=== PATIENT | male | born 1965 | race Hispanic/Latino ===

== ENCOUNTER 2017-10-18 13:46 | Inpatient (IN) | payer BC, OTHER ==
[2017-10-18] MEDS ORDERED: ACETAMINOPHEN 500 MG TAB PO PRN (14:33)
[2017-10-18 15:00] LABS: Protime INR 1.29
[2017-10-18 15:02] LABS: Absolute Lymphocytes (CBC) 0.4 K/uL (0.7-4.9); Absolute Neutrophil 15.5 K/uL (1.8-8.0); Basophils % 1.3 % (0-1.3); Eosinophils % 0.8 % (0-4.4); Hematocrit 33.6 % (39.6-49.0); Lymphocytes % 2.4 % (15.3-44.8); MCH 27.8 pg (27.0-35.0); MCV 86.7 fL (80-100); MPV 8.5 fL (7.6-11.3); Monocytes % 5.7 % (3.3-12.3); RBC Red Blood Cell Count 3.88 M/uL (4.33-5.43)
[2017-10-18 15:12] LABS: Potassium 3.9 mEq/L (3.6-5.0)
[2017-10-18 15:27] VITALS: BMI 23.3
[2017-10-18] MEDS: INSULIN -REGULAR HUMAN 50 UNIT/0.5 ML ML SQ SCH ×2 (16:30→21:00)
[2017-10-18] MEDS: Levofloxacin500mg IV 500 MG/100 ML BAG IV SCH (16:55)
[2017-10-18 17:32] LABS: Blood Morphology Comment NOT SEEN (NOT SEEN); Platelet Estimate ADEQ; Urine White Blood Cell Casts OK
[2017-10-18] MEDS: HYDROCODONE/APAP 10/325 TAB PO PRN (19:43)
--- NOTE | 2017-10-18 19:43 | P.HP ---
Certification for Inpatient Patient admitted to: Inpatient With expected LOS: >2 Midnights Practitioner: I am a practitioner with admitting privileges, knowledge of patient current condition, hospital course, and medical plan of care. Services: Services provided to patient in accordance with Admission requirements found in Title 42 Section 412.3 of the Code of Federal Regulations Patient History Date of Service: 10/18/17 Reason for admission: dry necrosis of right toe History of Present Illness: Mr Prasad is a 51 years old male with history of IDDM, PVD, CAD, ESRD on HD, who came to the hospital complaining of right toe black discoloration. He states that his toe was ok until 1 week ago, when he start with black escar on the bottom of his toe. The same happend to his left toe, however, on the right side , the black escar extended beyond the 1st metatarsalphalangeal joint. On the left toe remained on the bottom aspect of the toe. He denied fever, bat has had some chills. In ER lab work remarkable for leukocytosis 17.3K, hyponatremia 132 and abnormal renal function as expected. Allergies No Known Drug Allergies Allergy (Verified 03/16/17 16:49) Unknown Clindamycin Allergy (Uncoded 07/10/17 15:50) Unknown No Known Allergies Allergy (Uncoded 06/03/17 23:26) Unknown Home Medications: Nitroglycerin [Nitrostat*] 0.4 mg SL SEECOM PRN 04/16/15 Alprazolam [Xanax*] 0.25 mg PO BEDTIME PRN #20 tab 05/01/15 Clopidogrel Bisulfate [Plavix*] 75 mg PO DAILY #30 tablet 05/01/15 Metoprolol Tartrate [Lopressor*] 25 mg PO BID 6AM 6PM #60 tab 05/12/16 Amox/Clavulanate [Augmentin 875-125 Tab*] 1 tab PO BID 07/19/17 Aspirin [Aspirin EC 81 MG] 81 mg PO DAILY 07/19/17 Atorvastatin Calcium [Lipitor] 80 mg PO BEDTIME 07/19/17 Cetirizine HCl [Zyrtec] 5 mg PO DAILY 07/19/17 Codeine/APAP [Tylenol W/Codeine #3 tab] 1 tab PO Q8HP PRN 07/19/17 Folic Acid/Vit Bcomp,C [Kassie-Lizzeth Tablet] 0.8 mg PO DAILY 07/19/17 Furosemide 20 mg PO BID 07/19/17 Hydroxyzine HCl [Atarax] 25 mg PO Q12HP PRN 07/19/17 Metolazone [Zaroxolyn] 5 mg PO DAILY 07/19/17 Sevelamer Carbonate [Renvela*] 2,400 mg PO TIDWM 07/19/17 - Past Medical/Surgical History Has patient received pneumonia vaccine in the past: Yes Diabetic: Yes -: Diabetes mellitus type 2 -: HTN -: Diabetic neuropathy -: Congestive heart failure -: Coronary artery disease with multiple stents -: End-stage renal disease -: Hyperlipidemia -: Noncompliance with followup and medication -: Anxiety -: Cardiac stents x9 -: open heart surgery as a child -: Ear tubes Psychosocial/ Personal History: Patient is of 16 years, has 1 child, he does not work. - Family History Mother -: Heart disease, Hypertension, Diabetes, Other (see notes) Notes: alzheimer Father -: Heart disease, Cancer Notes: from colon cancer Brother -: Heart disease, Diabetes, Kidney disease - Social History Smoking Status: Never smoker Alcohol use: Yes CD- Drugs: No Caffeine use: Yes Place of Residence: Home Review of Systems 10-point ROS is otherwise unremarkable Physical Examination - Vital Signs Temperature: 99.3 F Blood Pressure: 145/72 Pulse: 97 Respirations: 16 Pulse Ox (%): 99 - Physical Exam General: Alert, In no apparent distress HEENT: Atraumatic, PERRLA, Mucous membr. moist/pink, EOMI, Sclerae nonicteric Neck: Supple, 2+ carotid pulse no bruit, No LAD, Without JVD or thyroid abnormality Respiratory: Clear to auscultation bilaterally, Normal air movement Cardiovascular: Regular rate/rhythm, Normal S1 S2 Gastrointestinal: Normal bowel sounds, No tenderness Musculoskeletal: No tenderness Integumentary: Cyanosis (bilateral LE distal cyanosis), Other (right toe dry necrotic eschar beyond the first metatarsophalangeal joint. Left to black eschar on the bottom area.) Neurological: Normal speech, Normal strength at 5/5 x4 extr, Normal tone, Normal affect Lymphatics: No axilla or inguinal lymphadenopathy - Studies Laboratory Data (last 24 hrs) 10/18/17 14:45: Sodium 132 L, Potassium 3.9, BUN 23 H, Creatinine 3.85 H, Glucose 183 H 10/18/17 14:45: PT 15.3 H, INR 1.29 10/18/17 14:45: WBC 17.3 H, Hgb 10.8 L, Hct 33.6 L, Plt Count 334 Assessment and Plan - Problems (Diagnosis) (1) PVD (peripheral vascular disease) Current Visit: Yes Status: Chronic (2) Necrotic eschar Current Visit: Yes Status: Acute (3) Coronary artery disease Onset Date: 05/10/16 Current Visit: No Status: Chronic Qualifiers: Coronary Disease-Associated Artery/Lesion type: [place] artery [place] vs. transplanted heart: [place] heart Associated angina: without angina Qualified Code(s): I25.10 - Atherosclerotic heart disease of [place] coronary artery without angina pectoris (4) Diabetes mellitus Onset Date: 05/10/16 Current Visit: No Status: Chronic Qualifiers: Diabetes mellitus type: type 2 Diabetes mellitus intermediate insulin use: with manager intermediate use Diabetes mellitus complication status: without complication Qualified Code(s): E11.9 - Type 2 diabetes mellitus without complications; Z79.4 - termite control servicer (current) use of insulin (5) ESRD (end stage renal disease) Onset Date: 06/01/15 Current Visit: No Status: Chronic - Plan The patient will be admitted to the hospital due to necrotic right great toe, also black eschar on the great left toe. He has been evaluated by Dr Mclaughlin and Dr Alvarez. Plan left heart cath and LE runoff tomorrow to evaluate viable blood flow, subsequently will decide extension of amputation. Will continue empiric antibiotic treatment. - Advance Directives Does patient have a Living Will: No Does patient have a Durable POA for Healthcare: No - Code Status/Comfort Care Code Status Assessed: Yes Code Status: Full Code
--- NOTE | 2017-10-18 22:04 | CON ---
History Of Present Illness: Mr. Prasad is in the hospital because of gangrene of his right great toe. It has been getting progressively worse and it started to become painful, so he came to the ER. He has been admitted. Dr. Alvarez saw him and scheduled an angiogram for next Monday, but we are vaughn g to move that up. He has severe vascular disease, numerous cardiac procedures, coronary stents. He has had peripheral arterial disease as well. He has congestive heart failure with depressed ejectio n fraction. Dialysis is on Mondays, Wednesdays, and Fridays. He has hypertension, myocardial infarc tion, peripheral arterial disease. He has been seeing Dr. Mclaughlin and the wound on his right great toe has not been getting better. Physical Examination: Vital Signs: Height 5 feet 4 inches, 136 pounds. HEENT: Unremarkable. Neck: No carotid bruit. Lungs: Clear. Heart: Reveals an S4 gallop. Regular rate and rhythm. Abdomen: Soft. Extremities: Gangrene of the right great toe. There is poor perfusion of the whole foot. It is senior clinical data coordinator l below the bottom third of the right lower leg. The left leg has no pulses, but it is warm and appe ars to have much better color. Impression: The patient's gangrene is very severe. Attempts will be made to see if there is any rev ascularization. Perhaps if revascularization could be done, a ray amputation could be done rather th an a whole foot. So, we will do an angiogram tomorrow. Dr. Mclaughlin will be involved and we will ge t the findings and make decisions about what can be done, but I think the patient's peripheral vascul ar disease is very severe. No doubt from his diabetes and renal disease and will probably result in amputation at least of the right great toe ray, maybe some more tissue will need to come off at the same time. TRACEY/MODL Voice ID: [id number] Report ID: [id number]
--- NOTE | 2017-10-18 22:10 | EKG ---
Test Date: 2017-10-18 Test Time: 16:55:58 Animal Caregiver: DAREK MEASUREMENT RESULTS: Intervals: Rate: 96 VA: 126 QRSD: 110 QT: 362 QTc: 457 [place]: P: VA: 126 QRS: 16 T: 187 INTERPRETIVE STATEMENTS: Normal sinus rhythm LVH with secondary repolarization changes Intraventricular conduction delay Abnormal ECG Compared to ECG 08/30/2017 00:38:46 no significant change from previous ECG Electronically Signed On 10-18-17 22:09:23 CDT by Jayden Matta
--- NOTE | 2017-10-18 22:33 | RAD REPORT ---
EXAM DESCRIPTION: RAD - Foot Right 2 View - 10/18/2017 9:48 pm CLINICAL HISTORY: Soft tissue infection COMPARISON: None. FINDINGS: No fracture identified. No dislocation or periosteal reaction. No destructive bone process identified to localize an area of osteomyelitis. Bone infection can exist prior to radiographic bone destruction. Very dense arterial tree calcifications are present. No foreign body in the soft tissues. There is a minimal amount of air within the soft tissues along the medial margin of the first metatar sherri head. No history is available to indicate whether there is an open wound at this site. IMPRESSION: Punctate air within the soft tissues along the medial margin of the first metatarsal hea d. No bone destructive process identified.
[2017-10-18] MEDS ORDERED: VANCOMYCIN 1 GM in NA CHLORIDE 0.9% 500 ML IVPB ONE (23:00)
[2017-10-18] MEDS ORDERED: VANCOMYCIN/NS 1 gm 1 GM/250 ML BAG ONE (23:06)
--- NOTE | 2017-10-18 23:37 | CON ---
Date of Consultation: 10/18/2017 Reason For Service: Gangrene over the right foot. Indications: This is the case of a 51-year-old patient, known by us in the past at [facility] due to a history of peripheral vascular disease, diabetic ulcers but come this time with a ri ght foot gangrene. He is well-known by the Cardiology Service due to known history of peripheral vas cular disease, coronary artery disease. Not too long ago, he had a left heart catheterization, arter iogram. Right now come with a black toe and half of his foot is already ischemic. Surgical consult was obtained for the options of amputation. He does not remember exactly what happened. It is hard to getting a story from him. He noticed the blackness but he thought it was going to get better, unt il today he was seen and noticed that he has gangrene with infection, ischemic changes all the way up to the ankle area. Past Medical History: Peripheral vascular disease, coronary artery disease, renal failure on hemodia lysis, hypertension, congestive heart failure, poor ejection fraction. Allergies: CLINDAMYCIN. Social History: He does not smoke. He does not drink alcohol. Medication: Reviewed including lisinopril, metoprolol, and aspirin. Family History: Peripheral vascular disease. Review of Systems: Constitutional: Denies any fever. Gastrointestinal: Denies any nausea or vomiting. Musculoskeletal: Right foot pain. No calf pain. Integument: Gangrene and blacked changes and erythema over the right foot region. Physical Examination: GENERAL: The patient is awake and alert. No distress. HEENT: Pupils anicteric. ABDOMEN: Soft and depressible. EXTREMITIES: Right foot with gangrene. It is black and dry the entire toe and half of his first met atarsal and second metatarsal region. The rest is ischemic from first to fifth toe with changes all the way to the ankle. The pulses are not dietary assistant. The femoral pulses still present. Assessment: A 51-year-old with gangrene of the right foot. This patient will need at least a below- knee amputation, is going for an angiogram tomorrow to see the blood supply and give us the options a nd how high it is going to be, but going on the area of the right foot region, we will just put this patient in the failure flaps. This patient has a severe cardiac disease, so it will be fine to do a definitive surgery instead of just trial surgeries. This put us in the situation of a below-knee gurinder l be necessary. We do have to go higher. While the angiogram tomorrow might help us. He is going t o be on antibiotics and then we explained to him the benefits, alternatives, and risks of each option which include but not limited to infection, bleeding, damage to adjacent structures, anesthesia comp lication, nonhealing wound, heart attacks, flap failure, ID, and even . This is just below-knee amputation. He understand the mortality of above-knee amputation maybe a little bit higher with ila e comorbidities. He understands the urgency and the seriousness of this situation. He is thinking a bout it. He has not given any consent at this moment. We will discuss with him once again once the angiogram is completed. WILLIE Voice ID: [id number] Report ID: [id number]
[2017-10-19 04:57] LABS: Absolute Lymphocytes (CBC) 0.6 K/uL (0.7-4.9); Absolute Monocytes 1.2 K/uL (0.1-1.3); Absolute Neutrophil 14.2 K/uL (1.8-8.0); Basophils % 0.7 % (0-1.3); Eosinophils % 1.6 % (0-4.4); Hematocrit 30.3 % (39.6-49.0); Lymphocytes % 3.7 % (15.3-44.8); MCH 27.5 pg (27.0-35.0); MCV 88.4 fL (80-100); MPV 8.7 fL (7.6-11.3); Monocytes % 7.1 % (3.3-12.3); RBC Red Blood Cell Count 3.42 M/uL (4.33-5.43)
[2017-10-19 05:12] LABS: Potassium 4.6 mEq/L (3.6-5.0)
[2017-10-19] MEDS ORDERED: ATROPINE SULF 1 MG/10 ML SYR IV ONE (06:06)
[2017-10-19] MEDS ORDERED: LIDOCAINE 1% 20 ML MDV ONE ×2 (06:06→07:37)
[2017-10-19] MEDS ORDERED: HEPA 1000U/500MLS 1,000 UNIT/500 ML BAG IV ONE (06:06)
[2017-10-19] MEDS ORDERED: NA CHLORIDE 0.9% 500 ML ONE (06:06)
[2017-10-19 06:37] LABS: Urine Appearance CLEAR; Urine Bilirubin NEGATIVE (NEG); Urine Blood NEGATIVE (NEG); Urine Color DK YELLOW; Urine Glucose 1+ (NEG); Urine Protein 3+ (NEG); Urine Specific Gravity 1.015 (1.005-1.030)
[2017-10-19 06:53] LABS: Urine Microscopic Reflex ORDER UMIC
[2017-10-19 07:04] LABS: Urine Amorphous Sediment TRACE /HPF (NONE SEEN); Urine Bacteria <20 /HPF (NONE SEEN); Urine Culture Reflex Order REFLEXED; Urine RBC <5 /HPF (NONE SEEN)
[2017-10-19] MEDS ORDERED: MIDAZOLAM HCL 2 MG/2 ML INJ ONE (07:20)
[2017-10-19] MEDS: INSULIN -REGULAR HUMAN 50 UNIT/0.5 ML ML SQ SCH ×4 (07:30→21:00)
[2017-10-19] MEDS ORDERED: FENTANYL CITR 100 MCG/2 ML ONE (07:30)
[2017-10-19] MEDS ORDERED: VANCOMYCIN 500 MG in NA CHLORIDE 0.9% 100 ML IVPB SCH (07:30)
--- NOTE | 2017-10-19 08:54 | RAD REPORT ---
EXAM DESCRIPTION: Carlos Single View10/19/2017 6:03 am CLINICAL HISTORY: Cough COMPARISON: July 2017 FINDINGS: A 9 millimeter nodular opacity overlies the mid right mid lung. The remainder lungs appear clear. The heart is mildly to moderately enlarged. A central venous catheter has its limbs in the hayward perior vena cava. Upper lobe vessels are prominent indicative of pulmonary venous hypertension IMPRESSION: 9 millimeter nodular opacity overlying the mid right lung may represent a pulmonary nodu le or confluence of ribs and vessels. An unenhanced CT chest is recommended Pulmonary venous hypertension
[2017-10-19 10:22] LABS: Potassium 4.8 mEq/L (3.6-5.0)
[2017-10-19] MEDS ORDERED: NITROGLYCERIN 0.4 MG/TAB SL PRN (13:00)
[2017-10-19] MEDS ORDERED: NA CHLORIDE 0.9% 1,000 ML IV SCH (13:00)
[2017-10-19] MEDS ORDERED: GLUCAGON 1 MG/VIAL IM PRN (14:52)
[2017-10-19] MEDS ORDERED: D50W 25 GM/50 ML SYRINGE IV PRN (14:52)
--- NOTE | 2017-10-19 16:04 | PN ---
Date of Progress Note: 10/19/2017 Subjective: The patient seen and examined. Chart reviewed and case discussed with RN, patient and Dr. Alvarez. The patient went for angiogram today to evaluate his lower extremity circulation. The patient has severe stenosis and will need stenting and anti-platelet therapy once surgery has been completed. The patient otherwise, besides pain will likely go for amputation today. Review of Systems: Negative except as above. Medications: Reviewed. Physical Examination: Vital Signs: Temperature 97.9, heart rate 83, blood pressure of 140/78, respirations 14, O2 99% on 2 L via nasal cannula. General: Awake, alert, oriented x3, in some mild distress due to pain. Appears older than stated age. Ill-appearing male. CV: S1, S2. No murmurs. Peripheral pulses weak bilaterally. Respiratory: Moving air well bilaterally. No wheezing. Gastrointestinal: Abdomen is soft, nontender, nondistended. Positive bowel sounds. Extremities: No clubbing, cyanosis, or edema. Skin: The patient has gangrenous right first toe with spreading to the dorsal aspect of the foot. Left first toe also has gangrene Neurologic: Nonfocal. Laboratory Data: Sodium 132, potassium 4.8, chloride 99, CO2 22, BUN 38, creatinine 5.19, glucose 120, calcium 8.9. WBC 16.3, H and H 9.4, 30.3, platelets 315, neutrophils 86.9%. Chest x-ray shows a 9 mm nodular opacity overlying the mid right lung, may represent a pulmonary nodule or confluence of ribs in vessels, pulmonary venous hypertension. Remainder of the lungs appear clear. Assessment And Plan: A 51-year-old male with. 1. Right foot gangrene. X-ray shows air, will likely need an amputation. 2. Severe peripheral vascular disease, status post angiogram. The patient will need stenting and anti-platelet therapy after he returns from surgery. 3. Coronary artery disease, [place] artery and [place] heart without angina. 4. Diabetes mellitus type 2 with long-term use of insulin without complication. Continue sliding scale insulin. 5. End-stage renal disease, on hemodialysis. Appreciate Nephrology input. 6. Diabetic neuropathy. 7. Congestive heart failure, ejection fraction is 31% from 2016. 8. Generalized anxiety disorder. 9. Hyperlipidemia. We will continue statin. 10. Noncompliance. 11. Gastrointestinal and deep venous thrombosis prophylaxis with PPI. No chemical anticoagulation in anticipation of surgery. 12. Pulmonary nodule: Obtain Ct chest to further characterize abnormality on CXR SA/MODL Voice ID: [id number] Report ID: [id number] MTDD
[2017-10-19] MEDS: FUROSEMIDE 20 MG TABLET PO SCH (17:00)
[2017-10-19] MEDS: ALPRAZOLAM 0.25 MG TABLET PO PRN (20:22)
[2017-10-19] MEDS: RANITIDINE 150 MG TABLET PO SCH (20:22)
[2017-10-19] MEDS: PREGABALIN 50 MG CAP PO SCH (20:22)
[2017-10-19] MEDS: Levofloxacin500mg IV 500 MG/100 ML BAG IV SCH (20:23)
--- NOTE | 2017-10-19 22:05 | OP ---
Surgeon: Parminder Alvarez MD Indications: Admitted on 10/18/2017 for peripheral vascular disease. Procedure: Abdominal angiogram with runoff. Procedure In Detail: Mr. Prasad was brought to the [facility] for an abdominal angiogram with runoff be cause of ischemic right toe and positive arterial Dopplers in my office in the past. He is 51 years old, on dialysis with diabetes, high blood pressure, cholesterol, coronary artery disease with a plan to do an abdominal angiogram with runoff as an outpatient, but he came in with ischemic right toes, draped and prepped in the routine sterile fashion and given 2 mg of Versed for IV sedation. A 6-Fren ch sheath was introduced in the left common femoral artery. A pigtail catheter was used to do the an giography. The patient was noted to have a 90% right common iliac, 90% distal SFA, 80% to 90% distal left SFA, complete occlusion of the anterior tibial, posterior tibial, and the peroneal bilaterally with collateral flow to the distal feet. The patient tolerated the procedure well. Blood loss was 5 cc. Pressure was held at the left groin for hemostasis. Total conscious sedation was 30 minutes. Final Diagnosis: Peripheral vascular disease that is severe. Plan: We will plan to proceed with amputation probably of the right foot or metatarsal or above the fifth metatarsal area first. Probably, we will plan to do a staged stent of the right common iliac a nd the right SFA and the left SFA in the near future. The case was discussed with the family and Dr. Mclaughlin and Dr. Pradhan. FARNAZ/DONNA Voice ID: [id number] Report ID: [id number]
[2017-10-19] MEDS: HYDROCODONE/APAP 10/325 TAB PO PRN (22:28)
[2017-10-19] MEDS ORDERED: VANCOMYCIN 1 GM in NA CHLORIDE 0.9% 500 ML IVPB ONE (22:29)
--- NOTE | 2017-10-20 02:35 | CON ---
Date of Consultation: 10/19/2017 Chief Complaint: End-stage renal disease, on dialysis. History Of Present Illness: The patient has history of end-stage renal disease due to diabetic kidney disease, severe peripheral vascular disease, coronary artery disease, and history of myocardial infarction. The patient presented to the hospital because of dry necrosis of the right toe and right foot. The patient has severe peripheral vascular disease, was found to have severe leukocytosis and hyponatremia. Sodium level was 132. Leukocytosis was up to 17 ,300. The patient stated that he developed some discoloration of right toe 1 week ago. He noticed black eschar and redness. Subsequently, eschar extended beyond the first metatarsal joint. The patient denied fever or chills. Denies nausea or vomiting. Review of Systems: Denies fever or chills. Eyes: Denies vision changes. Ears, Nose, Mouth, and Throat: Denies sore throat or earache. Respiratory: Denies PND or orthopnea. Cardiovascular: Denies chest pain or palpitations. GI: Denies nausea or vomiting. : Denies dysuria or hematuria. Musculoskeletal: Developed eschar gangrene of the right foot. All other systems reviewed and all are negative. Past Medical History: Diabetes mellitus type 2, diabetic kidney disease, diabetic neuropathy, retinopathy, coronary artery disease, multiple stent placement, myocardial infarction, end-stage renal disease on dialysis, hyperlipidemia, noncompliance with medication and followup, anxiety, status post PTCA, open-heart surgery, as a child ear tubes, renal osteodystrophy, anemia, and CKD. Family History: Mother, heart disease, hypertension, diabetes, and Alzheimer. Father had cancer and heart disease. Brother, heart disease, diabetes, and kidney disease. Social History: Denies tobacco, alcohol, or illicit drugs. Physical Examination: General: The patient is awake, alert, follows commands. Vital Signs: Blood pressure 145/72, temperature 99.3, respiratory rate 16, and heart rate 97. Eyes: Anicteric sclerae. EOMI. Ears, Nose, Mouth, and Throat: Oral mucosa moist. No pallor. Neck: Supple. No JVD. No bruits. Lungs: Clear to auscultation bilaterally. No wheezing. No rhonchi. Heart: S1, S2. RRR Abdomen: Soft, benign, nontender. Extremities: Eschar gangrene of the right foot, necrosis, no drainage, no bleeding. Laboratory Data: Sodium 132, potassium 3.9, creatinine 3.85, glucose 183, INR 1.29, PT 15.3, WBC 17.3, hemoglobin 10.8, hematocrit 33.6, and platelet count 334,000. Today, blood work showed sodium 132, potassium 4.8, chloride 99, CO2 22, BUN 38, creatinine 5.19, and calcium 8.9. Impression And Plan: 1. The patient is undergoing cardiac workup today and is to have lower extremity angiogram. The patient will have lab work re-evaluated after IV contrast procedure, and he is to have urgent dialysis for metabolic clearance to control electrolytes and prevent contrast-induced hyperkalemia. The patient has fluid overload and dilutional hyponatremia. Continue p.o. fluid restriction and low-sodium diet. Adjust ultrafiltration goal with dialysis to control fluid overload. 2. Hypertension, continue blood pressure medication. 3. Gangrene and peripheral vascular disease. The patient is to have lower extremity angiogram and possible revascularization. Continue antibiotics. The patient will require amputation. 4. Renal osteodystrophy, continue renal diet and binders. 5. Anemia and chronic kidney disease, continue HALIMA. Monitor hemoglobin level. ELMER/DONNA Voice ID: [id number] Report ID: [id number] HEATHER
[2017-10-20 05:10] LABS: Absolute Lymphocytes (CBC) 0.7 K/uL (0.7-4.9); Absolute Monocytes 1.1 K/uL (0.1-1.3); Absolute Neutrophil 12.3 K/uL (1.8-8.0); Basophils % 0.7 % (0-1.3); Eosinophils % 1.4 % (0-4.4); Hematocrit 29.6 % (39.6-49.0); Lymphocytes % 4.6 % (15.3-44.8); MCH 27.5 pg (27.0-35.0); MCV 88.2 fL (80-100); MPV 8.8 fL (7.6-11.3); Monocytes % 7.4 % (3.3-12.3); RBC Red Blood Cell Count 3.36 M/uL (4.33-5.43)
[2017-10-20 05:45] LABS: Potassium 4.2 mEq/L (3.6-5.0)
[2017-10-20] MEDS ORDERED: PROPOFOL 200 MG/20 ML VIAL IV ONE (07:14)
[2017-10-20] MEDS ORDERED: FENTANYL CITR 100 MCG/2 ML ONE ×2 (07:14→08:25)
[2017-10-20] MEDS ORDERED: MIDAZOLAM HCL 2 MG/2 ML INJ ONE (07:14)
[2017-10-20] MEDS ORDERED: LIDOCAINE 1% MPF 5 ML VIAL ONE (07:14)
[2017-10-20] MEDS ORDERED: NA CHLORIDE 0.9% 1,000 ML ONE (07:27)
[2017-10-20] MEDS: INSULIN -REGULAR HUMAN 50 UNIT/0.5 ML ML SQ SCH ×4 (07:30→20:40)
[2017-10-20] MEDS ORDERED: EPHEDRINE SULF 50 MG/ML SYR ONE (08:23)
[2017-10-20] MEDS ORDERED: ONDANSETRON 4 MG/2 ML VIAL ONE (08:48)
--- NOTE | 2017-10-20 08:54 | P.BOP ---
Preoperative diagnosis: gangrene right foot , severe PVD, ESRD Postoperative diagnosis: same Primary procedure: Right BKA Estimated blood loss: <50cc Specimen: leg Findings: as above Anesthesia: General Complications: None Drain(s): DANIELLE drain Transferred to: Recovery Room Condition: Good
[2017-10-20] MEDS: HYDROCODONE/APAP 10/325 TAB PO PRN ×3 (09:50→21:43)
[2017-10-20] MEDS: FUROSEMIDE 20 MG TABLET PO SCH ×2 (09:50→16:48)
[2017-10-20] MEDS: METOPROLOL TAR 25 MG TAB PO SCH (09:50)
[2017-10-20] MEDS: PREGABALIN 50 MG CAP PO SCH ×2 (09:50→20:39)
[2017-10-20] MEDS: METOLAZONE 5 MG TABLET PO SCH (09:50)
[2017-10-20] MEDS: Morphine 2 MG/2 ML SYR IV PRN ×2 (10:50→16:48)
[2017-10-20] MEDS: Levofloxacin500mg IV 500 MG/100 ML BAG IV SCH (15:32)
--- NOTE | 2017-10-20 16:27 | PN ---
Date of Progress Note: 10/20/2017 Subjective: The patient seen and examined. The patient went for BKA today. Tolerated procedure wel l. Does report some pain. Review of Systems: Negative except as above. Medications: Reviewed. Physical Examination: Vital Signs: Temperature 98.2, heart rate 93, blood pressure 136/74, respirations 18, and O2 94% on room air. General: Awake, alert, oriented x3, in some mild distress, ill-appearing, older than stated age male . CV: S1, S2. No murmurs. Peripheral pulses are weak bilaterally. Respiratory: Clear to auscultation bilaterally. No wheezing. Gastrointestinal: Abdomen is soft, nontender, nondistended. Positive bowel sounds. Extremities: Left lower extremity; no clubbing, cyanosis, edema. Musculoskeletal: Left BKA. Stump site is bandaged. Skin: The patient has gangrene on the left first toe. Neurologic: Nonfocal. Laboratory Data: Sodium 136, potassium 4.2, chloride 101, CO2 27, BUN 26, creatinine 4.34, and gluco se 92. WBC 14.3, H and H 9.2, 29.6, platelets 314, and neutrophils 85%. Urine culture shows no grow th. Blood cultures pending. Assessment: A 51-year-old male with; 1.Right foot gangrenous toe with infection, status post right below knee amputation. 2.Severe peripheral vascular disease, status post angiogram. The patient will need intervention and further therapy after surgery is completed. 3.Coronary artery disease, [place] artery and [place] heart, without angina, stable. 4.Diabetes mellitus type 2 with long-term use of insulin with chronic kidney disease. Continue slid ing scale insulin. 5.End-stage renal disease, on hemodialysis. Appreciate Nephrology input. 6.Diabetic neuropathy. 7.Congestive heart failure, systolic dysfunction, ejection fraction 31% in 2016, compensated. 8.Generalized anxiety disorder. 9.Mixed hyperlipidemia, continue statin. 10.Noncompliance. 11.Gastrointestinal and deep venous thrombosis prophylaxis with PPI. No chemical anticoagulation du e to surgery. Plan: We will consult Infectious Disease. The patient will likely need IV antibiotics. Follow up c ulture results. SA/MODL Voice ID: [id number] Report ID: [id number]
--- NOTE | 2017-10-20 20:26 | PN ---
Date of Progress Note: 10/20/2017 Chief Complaint: Gangrene of the right foot, end-stage renal disease. Subjective: The patient received dialysis yesterday after IV contrast procedure was done. The patient had an angiogram of the lower extremity. Today , he underwent BKA. After surgery, he remains hemodynamically stable. He wants to re-schedule dialysis for tomorrow. Blood work today showed good electrolytes. Controlled potassium was 4.2, sodium 136, chloride 101, CO2 of 27, BUN 26, creatinine 4.34, calcium 8.7, glucose 92. The patient denies chest congestion. Review of Systems: Denies fever, chills. Denies palpitations. Objective: Lungs: Clear to auscultation bilaterally. Heart: S1 and S2. Abdomen: Soft and benign. Extremities: Status post BKA. Dressing in place. Impression And Plan: 1. End-stage renal disease. Dialysis tomorrow. The patient is reluctant to have dialysis done today, dialysis rescheduled for tomorrow. 2. Anemia and chronic kidney disease. Monitor hemoglobin level and adjust medication as needed. 3. Renal osteodystrophy. Continue renal diet and binders. 4. Peripheral vascular disease. Management per primary team. Gangrene of the foot. The patient had an amputation. Continue antibiotics with renally adjusted dose. ELMER/DONNA Voice ID: [id number] Report ID: [id number] MTDD
[2017-10-20] MEDS: RANITIDINE 150 MG TABLET PO SCH (20:40)
[2017-10-20] MEDS: ONDANSETRON 4 MG/2 ML VIAL IV PRN (20:41)
[2017-10-20] MEDS: ALPRAZOLAM 0.25 MG TABLET PO PRN (23:05)
[2017-10-21] MEDS: Morphine 2 MG/2 ML SYR IV PRN ×4 (02:12→23:38)
--- NOTE | 2017-10-21 02:31 | OP ---
Date of Procedure: 10/20/2017 Surgeon: Inocencio Mclaughlin MD Preoperative Diagnoses: Right foot gangrene; severe peripheral vascular disease; severe cardiac dise ase; renal failure, on hemodialysis. Postoperative Diagnoses: Right foot gangrene; severe peripheral vascular disease; severe cardiac dis ease; renal failure, on hemodialysis. Procedure: Right below-knee amputation. Anesthesia: General plus local. Findings: Right foot gangrene. Indications: This is the case of a 51-year-old patient with severe peripheral vascular disease; rainer re cardiac disease; renal failure, on hemodialysis; comes to us also with a gangrene of the right jessica t. An angiogram was done yesterday, it shows a very poor vascularization. The patient finally agree d to at least the above-knee amputation. It was discussed with him. He understands the benefits, al ternatives, and risks of below-knee amputation which include but not limited to infection, bleeding, damage to adjacent structures, anesthesia complication, nonhealing of the flaps especially with his v ascular disease, [place], and even . He also understands this may not relieve any symptoms. He migh t need more than one surgical intervention. A vascular computer education professor will do a stent p lacement in this patient to see if we can make that stump heal, otherwise he is going to have to go f or above-knee amputation. We do not have concern for that at this moment and the patient has a bad g angrene of his foot, so we will go with the patient at least below-knee amputation that will buy us s ome time. The patient was brought to the operating room, placed in supine position. A time-out was called. Right leg was prepped and draped in a sterile fashion. Anterior and posterior skin incision s were aligned with a marking pen. Anterior incision was made 12 cm below the tibial tuberosity and extended medially and lateral to the edges of the knee and the gastrocnemius muscle. The skin incisi on was then extended in each side distally over about 12 cm. The skin and subcutaneous tissues were incised down to the fascia. Saphenous veins were identified and ligated. The fascia of the muscle w as then divided with electrocautery at the level of the anterior skin incision. The muscles of the a nterior and lateral compartments were carefully divided exposing the anterior tibial vessels, which w ere suture ligated, although there was not much blood coming through it, just many collaterals on him . The interosseous membrane was then carefully incised. Tibial periosteum was incised, and using a PDS elevator, we proceeded to strip the periosteum proximally for about 2 cm. The tibia was then tra nsected using a Gigli saw with a 2 cm bevel anteriorly. The fibula was exposed, dissected circumfere ntially, and transected with a bone cutter about 2 cm proximal to the tibia. The amputation was then completed transecting the soleus muscle obliquely and the gastrocnemius muscle. Hemostasis was obta ined. The sharp bony edges were carefully filed. The fascias of the anterior and posterior flaps we re approximated with a #1 Vicryl. Before that, a DANIELLE drain was left in the area, connected to bulb hayward ction, secured in place with 3-0 nylon. The skin was then closed with elissa. Sponge counts, instr ument counts were correct. The patient tolerated the procedure well. The patient was sent to recove ry in stable condition. YARIEL/DONNA Voice ID: [id number] Report ID: [id number]
[2017-10-21 05:23] LABS: Absolute Lymphocytes (CBC) 0.6 K/uL (0.7-4.9); Absolute Monocytes 0.9 K/uL (0.1-1.3); Absolute Neutrophil 11.6 K/uL (1.8-8.0); Basophils % 0.7 % (0-1.3); Eosinophils % 1.9 % (0-4.4); Hematocrit 28.2 % (39.6-49.0); Lymphocytes % 4.5 % (15.3-44.8); MCH 27.1 pg (27.0-35.0); MCV 88.4 fL (80-100); MPV 8.7 fL (7.6-11.3); Monocytes % 6.6 % (3.3-12.3); RBC Red Blood Cell Count 3.19 M/uL (4.33-5.43)
[2017-10-21] MEDS: HYDROCODONE/APAP 10/325 TAB PO PRN ×3 (06:32→21:43)
[2017-10-21] MEDS: INSULIN -REGULAR HUMAN 50 UNIT/0.5 ML ML SQ SCH ×4 (07:30→21:00)
[2017-10-21] MEDS: PREGABALIN 50 MG CAP PO SCH ×2 (09:44→21:43)
[2017-10-21] MEDS: LISINOPRIL 10 MG TAB PO SCH (09:45)
[2017-10-21] MEDS: METOPROLOL TAR 25 MG TAB PO SCH (09:45)
[2017-10-21] MEDS: FUROSEMIDE 20 MG TABLET PO SCH ×2 (09:45→17:50)
[2017-10-21] MEDS: METOLAZONE 5 MG TABLET PO SCH (09:45)
[2017-10-21] MEDS: ONDANSETRON 4 MG/2 ML VIAL IV PRN (13:04)
--- NOTE | 2017-10-21 13:37 | PN ---
He had a right [id number]-[id number]-spxr amputation. The wound seems to be healing well according to the notes of people changing the dressing. I will keep my on him. His left great toe is gangrenous, so he may need a resection of that. It appears to be dry gangrene without any systemic complications, very li susi the therapy. We will be waiting for that tissue to demarcate and have an auto-amputation. The vessels of his left leg are no better than the right leg, so we will try to avoid any interventions i n the left leg. TRACEY/DONNA Voice ID: [id number] Report ID: [id number]
[2017-10-21] MEDS ORDERED: NA CHLORIDE 0.9% 1,000 ML IV PRN (14:39)
[2017-10-21] MEDS ORDERED: MANNITOL 25% 12.5 GM/50 ML VIAL IV PRN (14:39)
[2017-10-21] MEDS ORDERED: ALBUMIN HUMAN 25% 50 ML IV SCH (15:00)
[2017-10-21] MEDS: EPOETIN ALFA 10,000 UNIT/ML VIAL IV SCH (15:04)
--- NOTE | 2017-10-21 15:37 | CON ---
Date of Consultation: 10/21/2017 Subjective: The patient seen and examined, chart reviewed and case discussed with RN. The patient s tates his pain is quite significant. The patient states he is eager to move on from surgery and star t working with physical therapy. Review of Systems: Negative except as above. Medications: Reviewed. Physical Examination: Vital Signs: Temperature 98.7, heart rate 80, blood pressure 133/76, respirations 16, O2 92% on room air. General: Awake, alert, oriented x3, in some mild distress, appears older than stated age, ill-appear ing male. CV: S1, S2. No murmurs. Regular rate and rhythm. Peripheral pulses are weak. Respiratory: Moving air well bilaterally. No wheezing. No stridor. Gastrointestinal: Abdomen soft, nontender, nondistended. Positive bowel sounds. Extremities: No clubbing, cyanosis, or edema on the left lower extremity. Musculoskeletal: Right BKA with incisions site bandaged. No oozing. Mild tenderness to palpation a t the incision site. Neurologic: Nonfocal. Laboratory Data: Sodium 136, potassium 5, chloride 199, CO2 25, BUN 43, creatinine 6.47, glucose 111 , calcium 8.6. WBC 13.4, H and H 8.5 and 28.2, platelets 314, neutrophils 86%. Urine culture shows no growth. Assessment And Plan: This is a 51-year-old male with: 1.Right foot gangrenous toe and infection status post right below knee amputation. 2.Severe peripheral vascular disease. The patient will likely get stent placement next week. Appre paco Alvarez's input. 3.Coronary artery disease. [place] artery and [place] heart without angina, stable. 4.Diabetes mellitus type 2 with long-term use of insulin with chronic kidney disease. Continue slid ing scale insulin. 5.End-stage renal disease, on hemodialysis. Continue dialysis as scheduled. Appreciate Nephrology input. 6.Diabetic neuropathy. 7.Congestive heart failure, systolic dysfunction, EF 31% in 2016. Currently compensated. 8.Generalized anxiety disorder, stable. 9.Hyperlipidemia. Continue statin. 10.Gastrointestinal and deep venous thrombosis prophylaxis with PPI. We will start on Lovenox 24 ho urs after surgery. Plan: Consult ID. Blood cultures, wound cultures, PT/OT. Discharge planning. SA/MODL Voice ID: [id number] Report ID: [id number]
[2017-10-21] MEDS: ENOXAPARIN 30 MG/0.3 ML SQ SCH (17:50)
[2017-10-21] MEDS: Levofloxacin500mg IV 500 MG/100 ML BAG IV SCH (17:51)
[2017-10-21] MEDS: VANCOMYCIN 500 MG in NA CHLORIDE 0.9% 100 ML IVPB SCH (19:21)
[2017-10-21] MEDS: RANITIDINE 150 MG TABLET PO SCH (21:43)
--- NOTE | 2017-10-22 02:38 | PN ---
Date of Progress Note: 10/21/2017 Chief Complaint: End-stage renal disease on dialysis. History Of Present Illness: The patient is scheduled to have dialysis today. The patient has multiple medical problems including history of severe coronary artery disease, peripheral vascular disease, he underwent BKA for foot gangrene. He came to the hospital, was found to have gangrene of the foot. Review of Systems: Denies fever, chills. Physical Examination: Lungs: Clear to auscultation bilaterally. Heart: S1, S2. Abdomen: Soft, benign. Extremities: Dressing in place. Impression And Plan: 1. End-stage renal disease. Dialysis today is scheduled with ultrafiltration. 2. Hypertension. Blood pressure controlled. Continue current treatment. 3. Renal osteodystrophy. Continue renal diet and binders. 4. Peripheral vascular disease. Management by primary team and Cardiology. 5. Gangrene of the foot. Continue antibiotics. The patient had amputation done. ELMER/DONNA Voice ID: [id number] Report ID: [id number] MTDD
[2017-10-22] MEDS: INSULIN -REGULAR HUMAN 50 UNIT/0.5 ML ML SQ SCH ×4 (07:30→21:00)
[2017-10-22] MEDS: METOLAZONE 5 MG TABLET PO SCH (09:42)
[2017-10-22] MEDS: PREGABALIN 50 MG CAP PO SCH ×2 (09:42→22:16)
[2017-10-22] MEDS: METOPROLOL TAR 25 MG TAB PO SCH (09:42)
[2017-10-22] MEDS: HYDROCODONE/APAP 10/325 TAB PO PRN ×2 (09:43→15:25)
[2017-10-22] MEDS: LISINOPRIL 10 MG TAB PO SCH (09:43)
[2017-10-22] MEDS: FUROSEMIDE 20 MG TABLET PO SCH ×2 (09:43→18:51)
[2017-10-22] MEDS: ONDANSETRON 4 MG/2 ML VIAL IV PRN (09:48)
--- NOTE | 2017-10-22 14:07 | PN ---
Date of Progress Note: 10/20/2017 Subjective: The patient seen and examined. Chart reviewed and case discussed with RN. The patient appears depressed; however, does not want any SSRI at this time. Treatment plan explained. All ques tions answered. Review of Systems: Negative except as above. Medications: Reviewed. Physical Examination: Vital Signs: Temperature 98.4, heart rate 79, blood pressure 128/59, respirations 20, O2 of 98% on r oom air. General: Awake, alert, oriented x3, not in any acute distress; ill-appearing, older than stated age. Cachectic male. BMI 20. CV: S1, S2. Regular rate and rhythm. Pulse is weak. No murmurs. Respiratory: Clear to auscultation bilaterally. No wheezing. Gastrointestinal: Abdomen is soft, nontender, nondistended. Positive bowel sounds. Extremities: Left lower extremity; no clubbing, cyanosis, or edema. Musculoskeletal: Right BKA, bandaged. Skin: The patient has dry gangrene of the left first toe. Neurologic: Nonfocal. Laboratory Data: Pending. Glucose is 112. Blood cultures are pending. Assessment: A 51-year-old male with: 1.Right foot gangrenous toe and infection status post right below-knee amputation secondary to sever e peripheral vascular disease. 2.Severe peripheral vascular disease. Apparently, the patient being planned for stent placement and subsequent anti-platelet therapy next week. Cardiology on board. 3.Coronary artery disease; [place] artery and [place] heart without angina, stable. 4.Diabetes mellitus type 2 with long-term use of insulin with chronic kidney disease. We will kerri nue sliding scale insulin. 5.End-stage renal disease, on hemodialysis. We will continue dialysis as scheduled. Nephrology on board. 6.Diabetic neuropathy. 7.Congestive heart failure, systolic dysfunction, ejection fraction 31% in 2016, compensated. 8.Generalized anxiety disorder, stable. 9.Adjustment disorder with depressed mood. 10.Hyperlipidemia. 11.Continue statin. 12.Gastrointestinal and deep venous thrombosis prophylaxis; PPI and Lovenox. Plan: ID consultation. Follow up on cultures. SA/MODL Voice ID: [id number] Report ID: [id number]
[2017-10-22] MEDS: Levofloxacin500mg IV 500 MG/100 ML BAG IV SCH (15:25)
[2017-10-22] MEDS: ENOXAPARIN 30 MG/0.3 ML SQ SCH (18:51)
[2017-10-22] MEDS: CYCLOBENZAPRINE 10 MG TAB PO PRN (18:57)
[2017-10-22 21:17] LABS: Absolute Lymphocytes (CBC) 0.5 K/uL (0.7-4.9); Absolute Monocytes 1.1 K/uL (0.1-1.3); Absolute Neutrophil 13.6 K/uL (1.8-8.0); Basophils % 0.3 % (0-1.3); Hematocrit 29.1 % (39.6-49.0); Lymphocytes % 3.4 % (15.3-44.8); MCH 28.5 pg (27.0-35.0); MCV 87.5 fL (80-100); MPV 8.4 fL (7.6-11.3); Monocytes % 7.1 % (3.3-12.3); RBC Red Blood Cell Count 3.33 M/uL (4.33-5.43)
--- NOTE | 2017-10-22 22:04 | PN ---
Date of Progress Note: 10/22/2017 Chief Complaint: End-stage renal disease. The patient is scheduled for dialysis tomorrow. Subjective: The patient was found to have anemia. He is to have blood transfusion with 2 units of p acked red blood cells with dialysis. Leukocytosis. The patient is undergoing treatment with IV antibiotics. For diabetic foot infection, he underwent BKA for gangrene of left foot. Review of Systems: Denies fever, chills. Objective: Lungs: Clear to auscultation bilaterally. Heart: S1, S2. Abdomen: Soft, benign. Extremities: Dressing in place. Impression And Plan: 1.End-stage renal disease. Dialysis with ultrafiltration will be ordered for tomorrow. 2.Renal osteodystrophy. Continue renal diet and binders. 3.Hypertension. Continue blood pressure medication. 4.Anemia in chronic kidney disease. Continue HALIMA. Recommend blood transfusion as needed. 5.Diabetes mellitus. Continue insulin. ELMER/DONNA Voice ID: [id number] Report ID: [id number]
[2017-10-22] MEDS: RANITIDINE 150 MG TABLET PO SCH (22:16)
[2017-10-23 05:53] LABS: Absolute Lymphocytes (CBC) 0.7 K/uL (0.7-4.9); Basophils % 0.8 % (0-1.3); Eosinophils % 1.7 % (0-4.4); Hematocrit 27.1 % (39.6-49.0); Lymphocytes % 4.7 % (15.3-44.8); MCH 27.8 pg (27.0-35.0); MCV 88.5 fL (80-100); MPV 8.4 fL (7.6-11.3); Monocytes % 6.9 % (3.3-12.3); RBC Red Blood Cell Count 3.07 M/uL (4.33-5.43)
[2017-10-23 06:11] LABS: Albumin 1.9 g/dL (3.2-5.5); Bilirubin Total 0.8 mg/dL (0.3-1.2); Potassium 4.7 mEq/L (3.6-5.0); Protein, Total 6.4 g/dL (6.0-8.3)
[2017-10-23 06:58] LABS: Blood Morphology Comment NOT SEEN (NOT SEEN); Platelet Estimate ADEQ
[2017-10-23] MEDS: INSULIN -REGULAR HUMAN 50 UNIT/0.5 ML ML SQ SCH ×4 (07:30→21:19)
[2017-10-23] MEDS: FUROSEMIDE 20 MG TABLET PO SCH ×2 (09:00→17:45)
[2017-10-23] MEDS: METOLAZONE 5 MG TABLET PO SCH (09:00)
[2017-10-23] MEDS: METOPROLOL TAR 25 MG TAB PO SCH (09:00)
--- NOTE | 2017-10-23 10:27 | P.PN ---
Subjective Date of Service: 10/23/17 Chief Complaint: dry necrosis of right toe The patient is tethargic, but otherwise has not new complaint. No fever. Physical Examination - Vital Signs Temperature: 99.4 F Blood Pressure: 116/60 Pulse: 75 Respirations: 16 Pulse Ox (%): 96 - Physical Exam General: Alert, In no apparent distress HEENT: Atraumatic, PERRLA, EOMI Neck: Supple, JVD not distended Respiratory: Clear to auscultation bilaterally, Normal air movement Cardiovascular: Normal S1 S2, No gallops Gastrointestinal: Normal bowel sounds, No tenderness Musculoskeletal: Other (S/P Right BKA. ) Integumentary: Other (left first toe gangrenous) Neurological: Normal speech, Normal tone, Normal affect - Studies Laboratory Data (last 24 hrs) 10/23/17 05:20: Sodium 135, Potassium 4.7, BUN 41 H, Creatinine 6.82 H*, Glucose 96, Total Bilirubin 0.8, AST 34, ALT 18, Alkaline Phosphatase 121 10/23/17 05:20: WBC 15.2 H, Hgb 8.5 L, Hct 27.1 L, Plt Count 330 10/22/17 20:57: WBC 15.5 H D, Hgb 9.5 L, Hct 29.1 L, Plt Count 305 Microbiology Data (last 24 hrs): 10/21/17 12:19 Blood - Blood Anaerobic Blood Culture - Final 10/21/17 12:11 Blood - Blood Anaerobic Blood Culture - Final Assessment And Plan - Current Problems (Diagnosis) (1) PVD (peripheral vascular disease) Onset Date: 10/19/17 Current Visit: Yes Status: Chronic (2) Necrotic eschar Onset Date: 10/19/17 Current Visit: Yes Status: Acute (3) Coronary artery disease Onset Date: 05/10/16 Current Visit: No Status: Chronic Qualifiers: Coronary Disease-Associated Artery/Lesion type: [place] artery [place] vs. transplanted heart: [place] heart Associated angina: without angina Qualified Code(s): I25.10 - Atherosclerotic heart disease of [place] coronary artery without angina pectoris (4) Diabetes mellitus Onset Date: 05/10/16 Current Visit: No Status: Chronic Qualifiers: Diabetes mellitus type: type 2 Diabetes mellitus nutrition assistant insulin use: with penitentiary use Diabetes mellitus complication status: without complication Qualified Code(s): E11.9 - Type 2 diabetes mellitus without complications; Z79.4 - nursing home (current) use of insulin (5) ESRD (end stage renal disease) Onset Date: 06/01/15 Current Visit: No Status: Chronic - Plan #1 right foot gangrenous lession: S/P right BKA, F/U dr Mclaughlin. #2 left great toe gangrenous disease: planing to continue wathching and let to have self amputation. Continue treatment with IV Levaquin and Vancomycin. #3 PVD: S/P runoff, there is a plan to place a stent placement this week. Cardiology and Surgery team follow up. #4 ESRD: continue HD, F/U Dr Lowery. #5 anemia: Recommendation by surgery team is to have Hgb close to 10 mg/dl, today is 8.5, will transfuse 1 UNIT of PRBC.
[2017-10-23] MEDS ORDERED: NA CHLORIDE 0.9% 250 ML ONE (11:16)
[2017-10-23] MEDS: HYDROCODONE/APAP 10/325 TAB PO PRN ×2 (12:59→21:43)
[2017-10-23] MEDS: PREGABALIN 50 MG CAP PO SCH ×2 (13:00→20:23)
[2017-10-23] MEDS: EPOETIN ALFA 10,000 UNIT/ML VIAL IV SCH (13:06)
[2017-10-23] MEDS: ENOXAPARIN 30 MG/0.3 ML SQ SCH (17:46)
[2017-10-23] MEDS: CYCLOBENZAPRINE 10 MG TAB PO PRN (18:17)
[2017-10-23] MEDS: Morphine 2 MG/2 ML SYR IV PRN (20:20)
[2017-10-23] MEDS: RANITIDINE 150 MG TABLET PO SCH (20:23)
--- NOTE | 2017-10-24 01:46 | PN ---
Date of Progress Note: 10/23/2017 Chief Complaint: End-stage renal disease. Subjective: The patient is scheduled to have dialysis today and blood transfusion was ordered during dialysis. The patient denies PND, orthopnea. Objective: Lungs: Clear to auscultation bilaterally. Heart: S1, S2. Abdomen: Soft, benign. Extremities: Dressing in place. Impression And Plan: 1.End-stage renal disease. Dialysis is scheduled with ultrafiltration. Monitor electrolytes. Adju st parameters accordingly. 2.Hypertension. Blood pressure controlled. 3.Diabetes mellitus. Continue insulin as needed per sliding scale. 4.Renal osteodystrophy. Continue renal diet and binders. 5.Gangrene of the foot, status post amputation. Continue antibiotics. 6.Anemia in chronic kidney disease. The patient will continue HALIMA and the patient will have blood t ransfusion with dialysis. ELMER/MARYANNL Voice ID: [id number] Report ID: [id number]
[2017-10-24 05:42] LABS: Absolute Lymphocytes (CBC) 0.8 K/uL (0.7-4.9); Absolute Monocytes 1.2 K/uL (0.1-1.3); Absolute Neutrophil 11.2 K/uL (1.8-8.0); Basophils % 0.8 % (0-1.3); Eosinophils % 1.5 % (0-4.4); Hematocrit 32.4 % (39.6-49.0); Lymphocytes % 6.1 % (15.3-44.8); MCV 87.7 fL (80-100); MPV 8.7 fL (7.6-11.3); Monocytes % 8.7 % (3.3-12.3)
[2017-10-24 06:38] LABS: Albumin 2.2 g/dL (3.2-5.5); Bilirubin Total 0.6 mg/dL (0.3-1.2); Potassium 4.4 mEq/L (3.6-5.0); Protein, Total 6.4 g/dL (6.0-8.3)
[2017-10-24] MEDS: INSULIN -REGULAR HUMAN 50 UNIT/0.5 ML ML SQ SCH ×4 (07:30→21:00)
[2017-10-24] MEDS: PREGABALIN 50 MG CAP PO SCH ×2 (09:38→21:28)
[2017-10-24] MEDS: FUROSEMIDE 20 MG TABLET PO SCH ×2 (09:38→17:34)
[2017-10-24] MEDS: LISINOPRIL 10 MG TAB PO SCH (09:38)
[2017-10-24] MEDS: METOLAZONE 5 MG TABLET PO SCH (09:38)
[2017-10-24] MEDS: METOPROLOL TAR 25 MG TAB PO SCH (09:40)
[2017-10-24] MEDS: HYDROCODONE/APAP 10/325 TAB PO PRN (09:40)
--- NOTE | 2017-10-24 11:22 | CON ---
Subjective: The patient is a 51-year-old male with significant history of diabetes mellitus, coming in with gangrene of the right foot, which has been amputated by the surgical team. The patient has a DANIELLE drain at this time to the wound site and multiple elissa to close the wound site without any exc essive bleeding or discharge. The patient is having discomfort because of physical therapy. Past Medical History: Includes diabetes mellitus, hypertension, diabetic neuropathy, congestive hear t failure, coronary artery disease, end-stage renal disease, hyperlipidemia, noncompliance, anxiety, cardiac stent x9, open-heart surgery, ear tubes. Social History: Tobacco positive. Alcohol negative. Family History: Negative except heart disease and hypertension and diabetes, colon cancer. Review of Systems: A 10-point review was performed. Medications: Levaquin and vancomycin. Allergies: NO KNOWN DRUG ALLERGIES. Physical Examination: General: This is a 51-year-old male, sitting in easy chair, not in any acute cardiopulmonary distres s. Vital Signs: Temperature 98.9, pulse 90, respirations 17, blood pressure 125/52. HEENT: Unremarkable. Neck: Supple. Lungs: Basal crackles. Heart: S1, S2. Regular. Abdomen: Soft, nontender. Bowel sounds positive. Extremities: Right lower extremity BKA wound site noted. DANIELLE drain in place with serosanguineous betito inage. Laboratory Data: Shows WBC 13,500, hemoglobin 10.4, platelets 315. Chemistry shows sodium 137, pota ssium 4.4, chloride 96, bicarb 29, BUN 31, creatinine 5.8, glucose is 85. Micro data shows blood cul tures pending, no growth for 24 hours. Chest x-ray shows 9 mm nodular opacity overlying the mid righ t lung, may represent a pulmonary nodule, a CT was recommended, pulmonary venous congestion. Assessment And Plan: A 51-year-old male with significant history of diabetes, coming in with right f oot gangrene status post amputation and BKA. The patient is doing better. Continue to have discomfo rt and pain. We will recommend to transfer the patient to long-term acute care [facility] for further care. We will follow the patient closely. Thank you Dr. Velasco and Dr. Mclaughlin for consult. SRINIVASA/DONNA Voice ID: [id number] Report ID: [id number]
[2017-10-24] MEDS: Morphine 2 MG/2 ML SYR IV PRN ×3 (11:45→21:29)
[2017-10-24] MEDS: ENOXAPARIN 30 MG/0.3 ML SQ SCH (17:34)
--- NOTE | 2017-10-24 17:58 | PN ---
Diagnoses: Status post below-knee amputation. Subjective: Doing well. No complaint. Physical Examination: Abdomen: Soft and depressible. Extremities: Lower extremity area and with excellent skin flaps, good peripheral color. No cyanosis. Incisions are intact. No cellulitis. No cyanosis. Plan: We will continue now with protecting wound. Eventually, shrinkers. He is going to have to eventually go the circulation analyst to do the stents. They were going to place to improve the he aling of this area. He also will need rehabilitation. He can go to rehab floor LTAC and he is clear ed from the surgical standpoint to go. YARIEL/DONNA Voice ID: [id number] Report ID: [id number]
--- NOTE | 2017-10-24 18:09 | P.PN ---
Subjective Date of Service: 10/24/17 Chief Complaint: dry necrosis of right toe The patient feels better today, no fever. Physical Examination - Vital Signs Temperature: 98.3 F Blood Pressure: 123/56 Pulse: 71 Respirations: 18 Pulse Ox (%): 99 - Physical Exam General: Alert, In no apparent distress Respiratory: Clear to auscultation bilaterally, Normal air movement Cardiovascular: Regular rate/rhythm, Normal S1 S2 Gastrointestinal: Normal bowel sounds, No tenderness Musculoskeletal: Tenderness (right BKA) Integumentary: No rashes Neurological: Normal speech, Normal tone, Normal affect - Studies Laboratory Data (last 24 hrs) 10/24/17 04:24: Sodium 137, Potassium 4.4, BUN 31 H, Creatinine 5.82 H* D, Glucose 85, Total Bilirubin 0.6, AST 38, ALT 18, Alkaline Phosphatase 135 H 10/24/17 04:24: WBC 13.5 H, Hgb 10.4 L, Hct 32.4 L D, Plt Count 315 Assessment And Plan - Current Problems (Diagnosis) (1) PVD (peripheral vascular disease) Onset Date: 10/19/17 Current Visit: Yes Status: Chronic (2) Necrotic eschar Onset Date: 10/19/17 Current Visit: Yes Status: Acute (3) Coronary artery disease Onset Date: 05/10/16 Current Visit: No Status: Chronic Qualifiers: Coronary Disease-Associated Artery/Lesion type: [place] artery [place] vs. transplanted heart: [place] heart Associated angina: without angina Qualified Code(s): I25.10 - Atherosclerotic heart disease of [place] coronary artery without angina pectoris (4) Diabetes mellitus Onset Date: 05/10/16 Current Visit: No Status: Chronic Qualifiers: Diabetes mellitus type: type 2 Diabetes mellitus fci insulin use: with fci use Diabetes mellitus complication status: without complication Qualified Code(s): E11.9 - Type 2 diabetes mellitus without complications; Z79.4 - terminal manager (current) use of insulin (5) ESRD (end stage renal disease) Onset Date: 06/01/15 Current Visit: No Status: Chronic - Plan #1 right foot gangrenous lession: S/P right BKA, F/U dr Mclaughlin. He cleared the patient to discharge to rehab/LTAC. #2 left great toe gangrenous disease: continue wathching and let to have self amputation. Continue treatment with IV Levaquin and Vancomycin. #3 PVD: S/P runoff, there is a plan to place a stent placement in 2 days. Cardiology and Surgery team follow up. #4 ESRD: continue HD, F/U Dr Lowery. #5 anemia: HH stable after blood transfusion. He received a total of 2 UNIT's of PRBC's.
[2017-10-24] MEDS: RANITIDINE 150 MG TABLET PO SCH (21:28)
--- NOTE | 2017-10-25 03:08 | PN ---
Date of Progress Note: 10/24/2017 Subjective: The patient was admitted with gangrenous foot status post right below-knee amputation. Tolerated the procedure very well. The patient going under physical therapy and to continue IV antibiotic. Physical Examination: Vital Signs: When I saw the patient, blood pressure of 123/56, pulse of 71, afebrile. Chest: Clear to auscultation. Heart: S1, S2. Regular. Systolic murmur. Abdomen: Soft, nontender. Extremity: No edema. Right below-knee amputation. Laboratory Data: WBC 13.5, H and H 10.4/32.4, platelet of 315. Sodium 137, potassium 4.4, bicarb 29, BUN 31, creatinine 5.8, calcium 8.7. Medications: Current medications the patient on is include: 1. Levaquin 250. 2. Vancomycin. 3. Epogen. 4. Heparin. 5. Lisinopril 10. 6. Metoprolol 25. 7. Nitroglycerin. 8. Alprazolam. 9. Lyrica. 10. Lasix 20. 11. Metolazone. 12. Zofran. Assessment And Plan: 1. End-stage renal disease. Normal volume. We will continue dialysis. The patient is going to be scheduled for dialysis tomorrow. 2. Hypertension, controlled, optimal. We will continue current medication. We will monitor. 3. Anemia of chronic kidney disease. Continue Epogen. 4. Secondary SHPT stable. 5. Peripheral vascular disease, gangrenous toe status post below-knee amputation. We will continue PT/OT. Continue current antibiotic. This patient is going to be transferred to inpatient rehab. ULYSSES/DONNA Voice ID: [id number] Report ID: [id number] MTDD
[2017-10-25 05:29] LABS: Absolute Lymphocytes (CBC) 0.8 K/uL (0.7-4.9); Absolute Monocytes 0.9 K/uL (0.1-1.3); Eosinophils % 2.3 % (0-4.4); Hematocrit 34.4 % (39.6-49.0); Lymphocytes % 5.8 % (15.3-44.8); MCH 27.8 pg (27.0-35.0); MCV 88.1 fL (80-100); MPV 8.4 fL (7.6-11.3); Monocytes % 6.8 % (3.3-12.3)
[2017-10-25 06:15] LABS: Albumin 2.3 g/dL (3.2-5.5); Bilirubin Total 0.7 mg/dL (0.3-1.2); Potassium 4.9 mEq/L (3.6-5.0); Protein, Total 6.7 g/dL (6.0-8.3)
[2017-10-25] MEDS: INSULIN -REGULAR HUMAN 50 UNIT/0.5 ML ML SQ SCH ×4 (07:30→21:00)
[2017-10-25] MEDS: FUROSEMIDE 20 MG TABLET PO SCH ×2 (09:00→16:46)
[2017-10-25] MEDS: METOPROLOL TAR 25 MG TAB PO SCH (09:00)
[2017-10-25] MEDS ORDERED: Levofloxacin 250mg IV 250 MG/50 ML BAG IV SCH (09:00)
[2017-10-25] MEDS: METOLAZONE 5 MG TABLET PO SCH (09:00)
[2017-10-25] MEDS: PREGABALIN 50 MG CAP PO SCH ×2 (10:00→21:09)
[2017-10-25] MEDS: EPOETIN ALFA 10,000 UNIT/ML VIAL IV SCH (11:28)
[2017-10-25] MEDS ORDERED: LISINOPRIL 5 MG TAB PO SCH (11:54)
--- NOTE | 2017-10-25 14:02 | PN ---
Date of Progress Note: 10/25/2017 Subjective: The patient doing well. The patient seen on dialysis. The patient planned for angiogra m tomorrow. Physical Examination: Vital Signs: When I saw the patient, blood pressure 113/42, pulse of 67, afebrile. Chest: Clear to auscultation. Heart: S1, S2. Regular. Abdomen: Soft, nontender. Extremities: Cast on the right below-knee amputation with drainage. Laboratory Data: WBC 13, H and H 10.9/34.4, platelets 327. Sodium 136, potassium 4.9, bicarb 26, BU N 52, creatinine 7.2, calcium 8.7. Medications: Current medications the patient on its include: 1.Levaquin 250 q.24. 2.Vancomycin. 3.Albumin. 4.Lovenox. 5.Lisinopril 10. 6.Metoprolol 25 b.i.d. 7.Lasix. 8.Zofran. 9.Ranitidine. Assessment And Plan: 1.Chronic kidney disease, end-stage renal disease. Normal volume. We will continue dialysis Monday , Monday, Monday. 2.Hypertension, controlled. Currently on the lower side. I will decrease lisinopril. 3.Ischemic foot status post below-knee amputation. We will follow up PT/OT. The patient needs long rehabilitation because he has difficulty ambulating. The patient is going to be on inpatient rehab. 4.Peripheral vascular disease. Plan for angioplasty tomorrow. We will follow up. 5.Diabetes as by primary. 6.Coronary artery disease, stable. ULYSSES/DONNA Voice ID: [id number] Report ID: [id number]
[2017-10-25] MEDS: Levofloxacin 250mg IV 250 MG/50 ML BAG IV SCH (15:02)
[2017-10-25] MEDS: Morphine 2 MG/2 ML SYR IV PRN (15:34)
[2017-10-25] MEDS: VANCOMYCIN 500 MG in NA CHLORIDE 0.9% 100 ML IVPB SCH (16:39)
[2017-10-25] MEDS: ENOXAPARIN 30 MG/0.3 ML SQ SCH (17:00)
--- NOTE | 2017-10-25 17:18 | P.PN ---
Subjective Date of Service: 10/25/17 Chief Complaint: dry necrosis of right toe No new issues overnight. Mr Prasad is waiting angioplasty tomorrow. Physical Examination - Vital Signs Temperature: 98.3 F Blood Pressure: 149/70 Pulse: 84 Respirations: 16 Pulse Ox (%): 98 - Physical Exam General: Alert, In no apparent distress Respiratory: Clear to auscultation bilaterally, Normal air movement Cardiovascular: Normal S1 S2, No gallops Gastrointestinal: Normal bowel sounds, No tenderness Musculoskeletal: Other (S/P right BKA) Integumentary: No rashes, Other (necrotic lesion in his left great toe.) Neurological: Normal speech, Normal tone, Normal affect - Studies Laboratory Data (last 24 hrs) 10/25/17 05:09: Sodium 136, Potassium 4.9, BUN 52 H D, Creatinine 7.24 H* D, Glucose 111, Total Bilirubin 0.7, AST 32, ALT 16, Alkaline Phosphatase 143 H 10/25/17 05:09: WBC 13.0 H, Hgb 10.9 L, Hct 34.4 L, Plt Count 327 Assessment And Plan - Current Problems (Diagnosis) (1) PVD (peripheral vascular disease) Onset Date: 10/19/17 Current Visit: Yes Status: Chronic (2) Necrotic eschar Onset Date: 10/19/17 Current Visit: Yes Status: Acute (3) Coronary artery disease Onset Date: 05/10/16 Current Visit: No Status: Chronic Qualifiers: Coronary Disease-Associated Artery/Lesion type: [place] artery [place] vs. transplanted heart: [place] heart Associated angina: without angina Qualified Code(s): I25.10 - Atherosclerotic heart disease of [place] coronary artery without angina pectoris (4) Diabetes mellitus Onset Date: 05/10/16 Current Visit: No Status: Chronic Qualifiers: Diabetes mellitus type: type 2 Diabetes mellitus terminal supervisor insulin use: with snf use Diabetes mellitus complication status: without complication Qualified Code(s): E11.9 - Type 2 diabetes mellitus without complications; Z79.4 - assisted (current) use of insulin (5) ESRD (end stage renal disease) Onset Date: 06/01/15 Current Visit: No Status: Chronic - Plan #1 right foot gangrenous lession: S/P right BKA, F/U dr Mclaughlin. He cleared the patient to discharge to rehab/LTAC. #2 left great toe gangrenous disease: No further intervention from surgery stand point. He will have angioplasty done tomorrow by Dr Alvarez, hopefully improves his blow flow and avoid another amputation, however, necrotic eschar is expanded. Continue treatment with IV Levaquin and Vancomycin. #3 ESRD: continue HD, F/U Nephrology team. #4 anemia: HH stable after blood transfusion. He received a total of 2 UNIT's of PRBC's. #5 DM II: BS mostly below 200. Continue SSI.
[2017-10-25] MEDS: RANITIDINE 150 MG TABLET PO SCH (21:09)
[2017-10-26] MEDS ORDERED: LIDOCAINE 1% 20 ML MDV ONE (08:57)
[2017-10-26] MEDS ORDERED: HEPA 1000U/500MLS 1,000 UNIT/500 ML BAG IV ONE (08:57)
[2017-10-26] MEDS: PREGABALIN 50 MG CAP PO SCH ×2 (09:00→23:01)
[2017-10-26] MEDS: FUROSEMIDE 20 MG TABLET PO SCH ×2 (09:00→17:47)
[2017-10-26] MEDS: METOLAZONE 5 MG TABLET PO SCH (09:00)
[2017-10-26] MEDS: METOPROLOL TAR 25 MG TAB PO SCH (09:00)
[2017-10-26] MEDS: INSULIN -REGULAR HUMAN 50 UNIT/0.5 ML ML SQ SCH ×4 (09:20→21:00)
[2017-10-26] MEDS ORDERED: FENTANYL CITR 100 MCG/2 ML ONE (10:15)
[2017-10-26] MEDS ORDERED: NA CHLORIDE 0.9% 500 ML ONE (10:15)
[2017-10-26] MEDS ORDERED: MIDAZOLAM HCL 2 MG/2 ML INJ ONE (10:15)
--- NOTE | 2017-10-26 10:18 | P.PN ---
Subjective Date of Service: 10/26/17 Chief Complaint: dry necrosis of right toe Mr Prasad is afebrile, pain is well controlled, no SOB. Physical Examination - Vital Signs Temperature: 98.0 F Blood Pressure: 126/60 Pulse: 77 Respirations: 16 Pulse Ox (%): 98 - Physical Exam General: Alert, In no apparent distress Respiratory: Clear to auscultation bilaterally, Normal air movement Cardiovascular: Regular rate/rhythm, Normal S1 S2 Gastrointestinal: Normal bowel sounds, No tenderness Musculoskeletal: No tenderness, Other (S/P BKA, right stump drainage in place) Integumentary: Skin lesion (necrotic eschar on his left great toe) Neurological: Normal speech, Normal tone, Normal affect Assessment And Plan - Current Problems (Diagnosis) (1) PVD (peripheral vascular disease) Onset Date: 10/19/17 Current Visit: Yes Status: Chronic (2) Necrotic eschar Onset Date: 10/19/17 Current Visit: Yes Status: Acute (3) Coronary artery disease Onset Date: 05/10/16 Current Visit: No Status: Chronic Qualifiers: Coronary Disease-Associated Artery/Lesion type: [place] artery [place] vs. transplanted heart: [place] heart Associated angina: without angina Qualified Code(s): I25.10 - Atherosclerotic heart disease of [place] coronary artery without angina pectoris (4) Diabetes mellitus Onset Date: 05/10/16 Current Visit: No Status: Chronic Qualifiers: Diabetes mellitus type: type 2 Diabetes mellitus intermission coordinator insulin use: with intermission coordinator use Diabetes mellitus complication status: without complication Qualified Code(s): E11.9 - Type 2 diabetes mellitus without complications; Z79.4 - group home (current) use of insulin (5) ESRD (end stage renal disease) Onset Date: 06/01/15 Current Visit: No Status: Chronic - Plan #1 right foot gangrenous lession: S/P right BKA, F/U dr Mclaughlin. He cleared the patient to discharge to rehab. #2 left great toe gangrenous disease: He will have angioplasty done today by Dr Alvarez, hopefully improves his blow flow and avoid another amputation, however , necrotic eschar continue expanded. Continue treatment with IV Levaquin and Vancomycin. Will discuss with Dr Mclaughlin further intervention on left foot. #3 ESRD: continue HD, F/U Nephrology team. #4 anemia: HH stable after blood transfusion. He received a total of 2 UNIT's of PRBC's. #5 DM II: BS mostly below 200. Continue SSI. #6 PVD: will go for Angioplasty of left LE today, by Dr Alvarez.
[2017-10-26] MEDS ORDERED: HEPARIN 5000 UNIT/ML 1 ML VIAL ONE (10:40)
[2017-10-26] MEDS: Levofloxacin 250mg IV 250 MG/50 ML BAG IV SCH (13:13)
[2017-10-26] MEDS ORDERED: ACETAMINOPHEN 325 MG TABLET PO PRN (15:42)
[2017-10-26] MEDS: ENOXAPARIN 30 MG/0.3 ML SQ SCH (17:00)
--- NOTE | 2017-10-26 17:21 | PN ---
Date of Progress Note: 10/26/2017 Subjective: The patient is status post angioplasty with stent placement on the internal iliac artery . The patient tolerated the procedure. Physical Examination: Vital Signs: Blood pressure 129/49, pulse of 71. Chest: Clear to auscultation. Heart: S1, S2. Regular. Abdomen: Soft, nontender. Extremities: Left below-knee amputation. Right, no edema. Laboratory Data: WBC 13, H and H 10.9/34.4, platelets 327. Sodium 136, potassium 4.9, bicarb 26, BU N 52, creatinine 7. Assessment And Plan: 1.End-stage renal disease status post contrast today. The patient still have urine output. I am go ing to go ahead and arrange for dialysis today and we will follow up. 2.Hypertension, controlled, optimal. Continue current medication. 3.Anemia of chronic kidney disease, stable. Continue Epogen. 4.Peripheral vascular disease status post gangrenous foot, status post below-knee amputation. Therese ated the procedure. We will follow up with primary. Continue PT/OT. 5.Diabetes as by primary. ULYSSES/DONNA Voice ID: [id number] Report ID: [id number]
[2017-10-26] MEDS: EPOETIN ALFA 10,000 UNIT/ML VIAL IV SCH (20:00)
[2017-10-26 20:58] VITALS: O2SAT 97
--- NOTE | 2017-10-26 22:27 | OP ---
Surgeon: Parminder Alvarez MD Indication For Procedure: The patient was admitted on 10/18/2017 and was found to have severe periph eral arterial disease, right common iliac artery disease, very distal bilateral complete occlusion of his anterior tibial, posterior tibial, and peroneal vessels bilaterally. Underwent an amputation, Teresita ROY on the on the right side, was brought in today for his right common iliac artery stent, hoping to improve flow in the right leg, and help him heal his stump after his amputation. Procedure In Detail: The patient was brought into the production laborer, prepped and draped in the routine st erile routine sterile fashion. Given 2 mg of Versed for IV sedation. Angiogram was done through the right common femoral artery with a 7-Upper Sor[place] sheath. A 90% right common iliac artery stenosis was no celsa. An 8 x 39 Omnilink stent was placed at nominal pressure, with 0% residual, excellent results. StarClose was used to close the case. The patient will be at bedrest for 2 hours. We will see him i n followup later on. Total conscious sedation was 30 minutes. Operators were myself and printer floor covering assistant w as Rose Rubio. Final Diagnosis: Status post successful right common iliac artery stent. The patient received 5000 units of heparin during the procedure. We will give him Plavix as well. FARNAZ/DONNA Voice ID: [id number] Report ID: [id number]
[2017-10-26] MEDS: RANITIDINE 150 MG TABLET PO SCH (23:01)
[2017-10-26] MEDS ORDERED: VANCOMYCIN 500 MG/VIAL ONE (23:16)
[2017-10-26] MEDS ORDERED: NA CHLORIDE 0.9% 100 ML ONE (23:19)
[2017-10-26] MEDS: VANCOMYCIN 500 MG in NA CHLORIDE 0.9% 100 ML IVPB SCH (23:27)
[2017-10-27] MEDS: CYCLOBENZAPRINE 10 MG TAB PO PRN (02:32)
[2017-10-27 03:06] LABS: HBsAG Nonreactive (Nonreactive)
[2017-10-27 05:29] LABS: Absolute Lymphocytes (CBC) 0.5 K/uL (0.7-4.9); Absolute Monocytes 0.8 K/uL (0.1-1.3); Absolute Neutrophil 9.6 K/uL (1.8-8.0); Basophils % 1.1 % (0-1.3); Eosinophils % 2.5 % (0-4.4); Hematocrit 35.8 % (39.6-49.0); MCH 27.7 pg (27.0-35.0); MPV 8.5 fL (7.6-11.3); Monocytes % 7.5 % (3.3-12.3); RBC Red Blood Cell Count 4.03 M/uL (4.33-5.43)
[2017-10-27 05:56] LABS: Potassium 4.4 mEq/L (3.6-5.0)
[2017-10-27] MEDS: INSULIN -REGULAR HUMAN 50 UNIT/0.5 ML ML SQ SCH ×2 (07:30→11:40)
[2017-10-27] MEDS: FUROSEMIDE 20 MG TABLET PO SCH (09:00)
[2017-10-27] MEDS: PREGABALIN 50 MG CAP PO SCH (09:01)
[2017-10-27] MEDS: METOPROLOL TAR 25 MG TAB PO SCH (09:01)
[2017-10-27] MEDS: METOLAZONE 5 MG TABLET PO SCH (09:01)
[2017-10-27 12:11] VITALS: BP 156/85; TEMP 97.5
--- NOTE | 2017-10-27 16:25 | P.DS ---
Admission Date: 10/18/17 Discharge Date: 10/27/17 Primary Care Provider: Dr. Alvarado Disposition: TRANSFER TO INPATIENT REHAB Discharge Condition: GOOD Reason for Admission: dry necrosis of right toe Consultations: Cardiology-Dr. Alvarez Surgery-Dr. Mclaughlin ID-Dr. Marroquin Nephrology-Dr. Pacheco Procedures: Surgery: Date of Procedure: 10/20/2017 Surgeon: Inocencio Mclaughlin MD Preoperative Diagnoses: Right foot gangrene; severe peripheral vascular disease ; severe cardiac disease; renal failure, on hemodialysis. Postoperative Diagnoses: Right foot gangrene; severe peripheral vascular disease; severe cardiac disease; renal failure, on hemodialysis. Procedure: Right below-knee amputation. Anesthesia: General plus local. Findings: Right foot gangrene.Below-knee amputation right side Angiogram: Surgeon: Parminder Alvarez MD Indication For Procedure: The patient was admitted on 10/18/2017 and was found to have severe peripheral arterial disease, right common iliac artery disease, very distal bilateral complete occlusion of his anterior tibial, posterior tibial, and peroneal vessels bilaterally. Underwent an amputation, BKA on the on the right side, was brought in today for his right common iliac artery stent , hoping to improve flow in the right leg, and help him heal his stump after his amputation. Final Diagnosis: Status post successful right common iliac artery stent. - Problems (1) CHF (congestive heart failure) Onset Date: 05/10/16 Status: Chronic Qualifiers: Qualified Code(s): I50.23 - Acute on chronic systolic (congestive) heart failure (2) Coronary artery disease Onset Date: 05/10/16 Status: Chronic Qualifiers: Coronary Disease-Associated Artery/Lesion type: [place] artery [place] vs. transplanted heart: [place] heart Associated angina: without angina Qualified Code(s): I25.10 - Atherosclerotic heart disease of [place] coronary artery without angina pectoris (3) Diabetes mellitus Onset Date: 05/10/16 Status: Chronic Qualifiers: Diabetes mellitus type: type 2 Diabetes mellitus rodent exterminator insulin use: with correction use Diabetes mellitus complication status: without complication Qualified Code(s): E11.9 - Type 2 diabetes mellitus without complications; Z79.4 - exterminator helper (current) use of insulin (4) ESRD (end stage renal disease) Onset Date: 06/01/15 Status: Chronic (5) Hyperlipidemia Onset Date: 05/10/16 Status: Chronic Qualifiers: Hyperlipidemia type: unspecified Qualified Code(s): E78.5 - Hyperlipidemia , unspecified (6) Hypertension Onset Date: 08/29/16 Status: Chronic Qualifiers: Hypertension type: essential hypertension (7) PVD (peripheral vascular disease) Onset Date: 10/19/17 Status: Chronic (8) Gangrene Status: Acute Brief History of Present Illness: 51-year-old male presented emergency room with gangrene to the right and left great toes. Patient with diabetes, hypertension, CAD, severe peripheral vascular disease. The patient was admitted for further evaluation and treatment. Hospital Course: Patient was treated for the necrosis the was suspected for gangrene. The patient was found to have severe peripheral arterial disease. The right common iliac had bilateral complete occlusion. Surgery and infectious disease evaluated the patient. Surgery recommended below-knee amputation. This was done. The patient desires to tried a keep the left side from being amputated. At discharge patient will go to inpatient rehab to improve his ambulation. He will continue with wound care at this time. The patient will need to be re- evaluated in about a month. If the left toe on the left side is still necrotic the patient may require below-knee amputation. This was addressed in detail with the patient. He understands this. Patient will continue with medication for PVD. Patient currently on Plavix at this time. Patient may require stent to the left side in the future. Patient has hypertension. Patient will continue with his regular regimen of medication. Recommendation is to maintain blood pressures less than 150/80. Further adjustment can be done by his PCP. Patient has end-stage renal disease. Patient will continue with dialysis Patient with diabetes. This has remained stable during his stay. Recommendation is to maintain blood sugars less than 140 fasting and less than 200 after meals. Further adjustment can be done by his PCP. Patient with hyperlipidemia. Patient will continue with his medication. Vital Signs/Physical Exam: Temp Pulse Resp BP Pulse Ox 97.5 F 95 H 18 156/85 H 97 10/27/17 12:00 10/27/17 12:00 10/27/17 12:00 10/27/17 12:00 10/27/17 12:00 General: Alert, In no apparent distress, Oriented x3 HEENT: Atraumatic Neck: Supple Respiratory: Clear to auscultation bilaterally, Normal air movement Cardiovascular: Normal pulses, Regular rate/rhythm Gastrointestinal: Normal bowel sounds, Soft and benign, Non-distended, No tenderness, No masses, No rebound, No guarding Musculoskeletal: No erythema, No tenderness, No warmth Integumentary: No tenderness/swelling, No erythema, No warmth, No cyanosis Neurological: Normal speech, Normal strength at 5/5 x4 extr, Normal tone, Normal affect Lymphatics: No axilla or inguinal lymphadenopathy Laboratory Data at Discharge: WBC 11.3 K/uL (4.3-10.9) H 10/27/17 04:54 Hgb 11.1 g/dL (13.6-17.9) L 10/27/17 04:54 Hct 35.8 % (39.6-49.0) L 10/27/17 04:54 Plt Count 243 K/uL (152-406) D 10/27/17 04:54 PT 15.3 SECONDS (9.5-12.5) H 10/18/17 14:45 INR 1.29 10/18/17 14:45 Sodium 135 mEq/L (135-145) 10/27/17 04:54 Potassium 4.4 mEq/L (3.6-5.0) 10/27/17 04:54 BUN 28 mg/dL (6-20) H D 10/27/17 04:54 Creatinine 4.30 mg/dL (0.61-1.24) H D 10/27/17 04:54 Glucose 152 mg/dL (65-120) H 10/27/17 04:54 Total Bilirubin 0.7 mg/dL (0.3-1.2) 10/25/17 05:09 AST 32 IU/L (10-42) 10/25/17 05:09 ALT 16 IU/L (10-60) 10/25/17 05:09 Alkaline Phosphatase 143 IU/L (42-121) H 10/25/17 05:09 Home Medications: Clopidogrel Bisulfate [Plavix*] 75 mg PO DAILY #30 tablet 05/01/15 Furosemide 20 mg PO BID 07/19/17 Hydroxyzine HCl [Atarax] 25 mg PO Q12HP PRN 07/19/17 Metolazone [Zaroxolyn*] 5 mg PO DAILY 07/19/17 Alprazolam [Xanax*] 1 mg PO BEDTIME PRN 10/18/17 Cyclobenzaprine [Flexeril*] 10 mg PO TID PRN 10/18/17 Folic Acid/Vit Bcomp,C [Kassie-Lizzeth Tablet] 0.8 mg PO DAILY 10/18/17 Lisinopril 10 mg PO SEECOM 10/18/17 Metoprolol Tartrate [Lopressor*] 25 mg PO DAILY 10/18/17 Mupirocin 1 appl TOP DAILY 10/18/17 Pregabalin [Lyrica] 100 mg PO BID 10/18/17 Ranitidine HCl 300 mg PO BEDTIME 10/18/17 Patient Discharge Instructions: 1. Patient will be transferred to inpatient rehab to continue therapy. 2. Patient had right below-knee amputation. Patient will continue with current wound care. Patient will follow up with surgery in 1 week to follow up this hospitalization. 3. Patient with peripheral vascular disease. Patient will continue with Plavix. Patient had stent placed to the lower extremity. Patient will need a follow up with cardiology to consider further stent placement. 4. Patient has hypertension. Patient will continue with his regular regimen of medication. Recommendation is to maintain blood pressures less than 150/80. Further adjustment can be done by his PCP. 5. Patient has end-stage renal disease. Patient will continue with dialysis Diet: Renal Activity: Fall precautions Followup: Francisco Pacheco MD [ACTIVE - CAN ADMIT] - Parminder Alvarez MD [ACTIVE - CAN ADMIT] - (Follow up in office in 2 weeks. Call to schedule an appointment.) Inocencio Mclaughlin MD [ACTIVE - CAN ADMIT] - (Call for appointment) Time spent managing pt's care (in minutes): 55
== END 2017-10-27 13:31 | DRG 239 ==
LOC: 2ND 13:58
PROVIDERS: ADMIT Family Medicine; ATTEND Family Medicine
PROC: 5A1D70Z Performance of Urinary Filtration, Intermittent, Less than 6 Hours Per Day (ICD-10-PCS; 2017-10-19)
PROC: 0Y6H0Z2 Detachment at Right Lower Leg, Mid, Open Approach (ICD-10-PCS; 2017-10-20)
PROC: 5A1D70Z Performance of Urinary Filtration, Intermittent, Less than 6 Hours Per Day (ICD-10-PCS; 2017-10-21)
PROC: 30233N1 Transfusion of Nonautologous Red Blood Cells into Peripheral Vein, Percutaneous Approach (ICD-10-PCS; 2017-10-23)
PROC: 5A1D70Z Performance of Urinary Filtration, Intermittent, Less than 6 Hours Per Day (ICD-10-PCS; 2017-10-23)
PROC: 5A1D70Z Performance of Urinary Filtration, Intermittent, Less than 6 Hours Per Day (ICD-10-PCS; 2017-10-25)
PROC: 047C3DZ Dilation of Right Common Iliac Artery with Intraluminal Device, Percutaneous Approach (ICD-10-PCS; principal; 2017-10-26)
PROC: 5A1D70Z Performance of Urinary Filtration, Intermittent, Less than 6 Hours Per Day (ICD-10-PCS; 2017-10-26)
DX: E11.52 Type 2 diabetes mellitus with diabetic peripheral angiopathy with gangrene (principal); N18.6 End stage renal disease; I96 Gangrene, not elsewhere classified; I13.2 Hypertensive heart and chronic kidney disease with heart failure and with stage 5 chronic kidney disease, or end stage renal disease; I50.22 Chronic systolic (congestive) heart failure; E11.40 Type 2 diabetes mellitus with diabetic neuropathy, unspecified; E11.319 Type 2 diabetes mellitus with unspecified diabetic retinopathy without macular edema; E11.22 Type 2 diabetes mellitus with diabetic chronic kidney disease; D63.1 Anemia in chronic kidney disease; I25.10 Atherosclerotic heart disease of native coronary artery without angina pectoris; E78.2 Mixed hyperlipidemia; F41.9 Anxiety disorder, unspecified; R91.1 Solitary pulmonary nodule; N25.0 Renal osteodystrophy; F17.210 Nicotine dependence, cigarettes, uncomplicated; Z79.4 Long term (current) use of insulin; Z99.2 Dependence on renal dialysis; Z91.14 Patient's other noncompliance with medication regimen; Z95.5 Presence of coronary angioplasty implant and graft
CPT/HCPCS: 36200; 36415; 37221; 71045; 75630; 80048; 80053; 80202; 81003; 81015; 82962; 85025; 85347; 85610; 86317; 86704; 86706; 86850; 86900; 86901; 87040; 87086; 87088; 87340; 88305; 88307; 88311; 90935; 93005; 94760; 97163; C1725; C1893; J1644; J1650; J2250; J2270; J2405; J3010; J3370; J7030; P9016; Q4081

== ENCOUNTER 2017-10-24 10:20 | Inpatient (IN) | payer BC, OTHER ==
--- NOTE | 2017-10-24 14:51 | R.PREADM ---
SCREENING DATE AND TIME 10/24/2017 12:02 (CDT) ANTICIPATED REHAB ADMISSION DATE 10/26/2017 REFERRING FACILITY [facility] REFERRAL DATE AND TIME 10/24/2017 12:02 (CDT) ACUTE ADMIT DATE 10/18/2017 Previous Rehabilitation(s): No. REFERRING PHYSICIAN Tabitha Velasco REHAB FACILITY [facility] CLINICAL LIAISON Bee Botello PHYSICIAN REVIEWER Dr. Cameron Malcolm M.D. MR# [id number] NAME MARIBEL MIJARES ADDRESS [address] PHONE [facility] [id number] DATE OF 1965 AGE 51 SSN# [id number] GENDER male MARITAL STATUS RACE ADMIT FROM 02 - [facility] PRE-HOSPITAL LIVING SETTING 01 - Home (private home/apt. board/care, assisted living, shelter, transitional living) HOME TYPE AND DETAILS Type of home: single family house # of levels in the residence: 1 # of steps within the residence: 0 # of steps to enter the residence: 4 PRE-HOSPITAL LIVING WITH Family/Relatives FAMILY SUPPORT Yes PRIMARY FAMILY CONTACT NAME Shalini Mijares PRIMARY FAMILY CONTACT PHONE PHONE PRIMARY FAMILY CONTACT ON ADM.? no IS PRIMARY FAMILY CONTACT AUTH. REP.? no 1ST EMERGENCY CONTACT Shalini Mijares 1ST CONTACT PHONE PHONE 1ST CONTACT ON ADM. no IS 1ST CONTACT AUTH. REP.? no PHONE 2ND CONTACT ON ADM.? no PATIENT EMPLOYMENT STATUS Disabled PAYOR INFORMATION: 1ST PAYOR NAME [facility] 1ST PAYOR PHONE [phone] 1ST PAYOR INJURY/ILLNESS DUE TO ACCIDENT? No ANOTHER GREEN PARTY RESPONSIBLE? No PRIMARY REHAB/ACUTE DIAGNOSIS: Right BKA ONSET DATE 10/20/2017 REHAB IMPAIRMENT CATEGORY (STACI): 10 Amputation, lower extremity (Amp/LE) MEETS 60% rule AFFECTED EXTREMITIES: RLE PRIMARY DIAGNOSIS-RELATED SURGERIES: Right BKA COMORBID REHAB/ACUTE DIAGNOSES: - Tier 3 Type 2 diabetes mellitus with diabetic neuropathy, unspecified [E1140] - Non-Tiered Infection of amputation stump, unspecified extremity [T8740] - N/A HTN, CHF, CAD, ESRD, Hyperlipidemia, Anxiety, PVD SUMMARY OF ACUTE HOSPITALIZATION: Pt. is a 51 yo Right-handed male. On 10/20/2017 he was admitted to [facility] with diagnosis Right BKA. His impairment category is Amputation of Limb 05 - Unilateral Lower Limb Below the Knee (BK) (05.4). Pre-morbidly, Pt. was independent/mod-I in Transfers Control, Communication, Social Cognition, Self-C are, Locomotion, and Sphincter Control; and he had good Sphincter Control. Currently, he has deficits of Transfers Control, Balance, Locomotion, Endurance, Safety Awareness, an d Self-Care. Pt. is now referred to [facility] for acute in-patient rehabilitation in order to maximize patient's functional independence in activities of daily living, strength, ROM, and mobi lity. Patient has realistic goal of being discharged at assistance level 6-Sharon to reside at Home with Fam jacqueline/Relatives. CONSULT: Consult Certified Prosthetic for prosthesis construction PAST MEDICAL HISTORY HTN, CHF, CAD, ESRD, Hyperlipidemia, Anxiety, PVD Infection of amputation stump, unspecified extremity [T8740] Type 2 diabetes mellitus with diabetic neuropathy, unspecified [E1140] MEDICATION ALLERGIES: Clindamycin ENVIRONMENTAL ALLERGIES: None Known - Substance Allergies None Known - Other Allergies None Known CODE STATUS: Full code WEIGHT/HEIGHT/BMI: WEIGHT 136 lbs HEIGHT 5' 4" BMI 23.3 DIET: - Diet Type Regular - Diet - Solid Texture Regular - Diet - Liquid Texture Regular - Tube Feed N/A REVIEW OF SYSTEMS: - Gen Alert and awake Lying in bed No apparent distress Oriented to: person, time, and place - Vital Signs Temperature: 98.9 F SBP/DBP: 125/52 Pulse: 90 Resp: 17 Vital signs stable, afebrile - CVS RRR - Ext RLE below the knee amputation, Left great toe gangrenous disease VITAL SIGNS Temperature: 98.9 F SBP/DBP: 125/52 Pulse: 90 Resp: 17 Vital signs stable, afebrile CURRENT SPHINCTER CONTROL: Pre-hospital bladder status: continent # of bladder accidents in the last 7 days prior to screenin Pre-hospital bowel status: continent # of bowel accidents in the last 7 days prior to screenin Last Bowel Movement Date: DETAILED CURRENT FUNCTIONAL STATUS: - Bladder accident frequency: Ind - No accidents in the past 7 days - Bowel accident frequency: Ind - No accidents in the past 7 days - Walking score based on distance walked: 1(<=50ft) - Wheelchair score based on distance traveled: 0(N/A) FUNCTIONAL STATUS: - Self-Care A. Eating Ind Ind B. Grooming Ind Sharon C. Bathing Ind sup D. Dressing - Upper Ind Sharon E. Dressing - Lower Ind Vinny F. Toileting Ind Vinny - Sphincter Control G: Bladder control Ind Ind H: Bowel control Ind Ind - Transfers Control I. Bed/Chair/Wheelchair Ind Vinny J. Toilet Ind Vinny K. Tub/Shower Ind ADNO - Locomotion L. Walk/Wheelchair (W) Ind Vinny L. Walk/Wheelchair (C) Ind Vinny M. Stairs Ind ADNO - Communication N. Comprehension (B) Ind Ind O. Expression (B) Ind Ind - Social Cognition P. Social Interaction Ind Ind Q. Problem Solving Ind Ind R. Memory Ind Ind - Endurance Fair - Balance Poor - Safety Awareness Fair CURRENT FUNC. DEFICITS: Transfers Control, Balance, Locomotion, Endurance, Safety Awareness, and Self-Care THERAPY NOTES FROM ACUTE CARE: Attached. SPECIAL NEEDS: - Safety Concerns Skin breakdown precautions needed due to skin breakdown risk PRECAUTIONS: - Weight Bearing Precaution WBAT right LE - Fall Precaution Bed and chair alarm PATIENT NEEDS ACTIVE AND ONGOING THERAPEUTIC INTERVENTION OF MULTIPLE THERAPY DISCIPLINES, INCLUDING: - Orthotics/Prosthetics Prosthetic Evaluation. - Occupational Therapy Evaluate and Treat. - Physical Therapy Evaluate and Treat. PATIENT NEEDS CLOSE MEDICAL SUPERVISION BY A REHABILITATION PHYSICIAN FOR: Bowel and Bladder Management Coordination of Treatment Team Diabetes Management Medical and Co-Morbidity Management Pain Management Wound Care PATIENT REQUIRES 24X7 REHAB NURSING FOR MEDICAL AND FUNCTIONAL MGT. OF THE FOLLOWING DEFICITS: ADL's Ambulation Bowel and Bladder Management Communication Disease Management Medication Management Patient/Family Education Providing Safe Environment Transfers Pain Management Skin Integrity PATIENT REQUIRES INTENSIVE, COORDINATED INTERDISCIPLINARY APPROACH TO REHAB: Arranging Home Equipment/Services Discharge Planning Family Intervention/Training Bridge Tender/Case Management PATIENT REHAB POTENTIAL: Expected level of measurable improvement will be of a practical value to patient's functional capacit y or adaptations to impairments Has a viable Discharge Plan Medically appropriate; condition is sufficiently stable to participate in intensive rehab program Patient is able and expected to receive 3 hours of individualized therapy daily on at least 5 of ever y 7 days Patient's prognosis for significant practical improvement within a reasonable period of time appears Good DISCHARGE PLAN: - Estimated Length of Stay (days) 11. - Consensus on plan Discharge plan has been discussed with primary caregiver. Patient/Family is in agreement with the sussy n. Primary caregiver is in agreement with the plan. - Patient/Family Goals Return home with assistance. - Planned Living Setting Upon Discharge Home, to live with Family/Relatives. RECOMMENDED CARE LEVEL: IRF RECOMMENDATION DETAILS: Recommended Admission to Comprehensive Rehabilitation Program to Increase Functional [place] SCREENER'S COMPLETENESS CONFIRMATION: - Screening Confirmation The patient data collection on this preadmission screening form is finished PHYSICIANS REVIEW AND ADMISSION DETERMINATION Admit - Based on my review of the Pre-Admission Screening results, in my medical judgment and experie nce, I concur with the findings and recommend admission to [facility], as this patient requires an IRF level of care. SIGNATURE PANEL: Clinical Liaison - [electronically] signed by Bee Botello on 10/24/2017 at 13:48 (CDT) Physician Reviewer - [electronically] signed by Dr. Cameron Malcolm M.D. on 10/24/2017 at 13:53 (CDT )
[2017-10-27] MEDS ORDERED: CYCLOBENZAPRINE 10 MG TAB PO PRN (16:21)
[2017-10-27] MEDS ORDERED: D50W 25 GM/50 ML SYRINGE IV PRN (16:22)
[2017-10-27] MEDS ORDERED: GLUCAGON 1 MG/VIAL IM PRN (16:22)
[2017-10-27] MEDS: INSULIN -REGULAR HUMAN 50 UNIT/0.5 ML ML SQ SCH ×2 (16:30→21:00)
[2017-10-27] MEDS ORDERED: ENOXAPARIN 30 MG/0.3 ML SQ SCH (17:00)
[2017-10-27] MEDS: HEPARIN 5000 UNIT/ML 1 ML VIAL SQ SCH (18:13)
[2017-10-27] MEDS: FUROSEMIDE 20 MG TABLET PO SCH (19:27)
[2017-10-27] MEDS: HYDROCODONE/APAP 10/325 TAB PO PRN (19:27)
[2017-10-27] MEDS: PREGABALIN 50 MG CAP PO SCH (19:27)
[2017-10-27] MEDS: MUPIROCIN 2% OINT 22GM TUBE TOP SCH (19:39)
[2017-10-27] MEDS: RANITIDINE 150 MG TABLET PO SCH (22:28)
[2017-10-28] MEDS: METOPROLOL TAR 25 MG TAB PO SCH (05:02)
[2017-10-28] MEDS: HYDROCODONE/APAP 10/325 TAB PO PRN (06:34)
[2017-10-28 06:44] LABS: Absolute Lymphocytes (CBC) 0.8 K/uL (0.7-4.9); Absolute Monocytes 0.9 K/uL (0.1-1.3); Eosinophils % 3.6 % (0-4.4); Hematocrit 35.6 % (39.6-49.0); Lymphocytes % 6.8 % (15.3-44.8); MCH 27.3 pg (27.0-35.0); MCV 88.7 fL (80-100); MPV 8.8 fL (7.6-11.3); RBC Red Blood Cell Count 4.02 M/uL (4.33-5.43)
[2017-10-28] MEDS: INSULIN -REGULAR HUMAN 50 UNIT/0.5 ML ML SQ SCH ×4 (06:47→20:58)
[2017-10-28 07:10] LABS: Albumin 2.4 g/dL (3.2-5.5); Magnesium 2.1 mg/dL (1.8-2.5); Potassium 4.9 mEq/L (3.6-5.0); Prealbumin 17.4 mg/dl (18-38)
[2017-10-28] MEDS: FUROSEMIDE 20 MG TABLET PO SCH ×2 (08:00→20:57)
[2017-10-28] MEDS: HEPARIN 5000 UNIT/ML 1 ML VIAL SQ SCH ×2 (08:00→20:00)
[2017-10-28] MEDS: METOLAZONE 5 MG TABLET PO SCH (08:09)
[2017-10-28] MEDS: MUPIROCIN 2% OINT 22GM TUBE TOP SCH ×2 (08:09→21:01)
[2017-10-28] MEDS: PREGABALIN 50 MG CAP PO SCH ×2 (08:10→20:57)
[2017-10-28] MEDS: MULTIVITAMINS,THERAPEUT 1 TAB PO SCH (08:10)
[2017-10-28] MEDS: CLOPIDOGREL 75 MG TABLET PO SCH (08:11)
--- NOTE | 2017-10-28 15:56 | PN ---
Date of Progress Note: 10/27/2017 Mr. Prasad underwent a right common iliac artery stent yesterday, an 8 x 39 stent via right common fem oral artery approach. Today, he is asymptomatic. Right groin is intact. No telemetry changes. Goo d pulses in the femoral region. He is status post right BKA. We are hoping that the intervention wi ll allow his leg to heal. Continue present regimen including the Plavix. FARNAZ/DONNA Voice ID: [id number] Report ID: [id number]
--- NOTE | 2017-10-28 16:19 | CON ---
Date of Consultation: 10/28/2017 Additional Consulting Physician: Cameron Malcolm MD Reason For Consultation: Hypertension, end-stage renal disease, dialysis management. History Of Present Illness: This is a pleasant 51-year-old gentleman, well known to me from the dial ysis with significant past medical history of end-stage renal disease, on hemodialysis at [facility]. Diabetes complicated with nephropathy and neuropathy, carotid artery disease st atus post PTCA complicated with congestive heart failure, peripheral vascular disease status post amp utation. The patient was admitted to Dr. Mcrae for gangrenous foot, status post below-knee amputati on, status post angioplasty on the other leg. The patient tolerated the procedure very well. The pa tient was transferred to rehab for physical therapy. The patient denied any complaints. Past Medical History: Include: 1.Coronary artery disease, exam complicated with congestive heart failure status post PTCA. 2.Hypertension. 3.Hyperlipidemia. 4.End-stage renal disease, on hemodialysis, Monday, Monday, Monday. 5.Peripheral vascular disease, status post angioplasty, status post below-knee amputation. Allergies: NO KNOWN DRUG ALLERGIES. Family History: Positive for diabetes and hypertension. Social History: Denies smoking. Denies drinking. Denies drug abuse. Past Surgical History: Include: 1.PTCA. 2.Perm-A-Cath placement. 3.Below-knee amputation. 4.Angioplasty. Review of Systems: Head and Neck: No red eye. No ear pain. GI: No nausea. No vomiting. : No polyuria. No dysuria. No hematuria. PHLEBOTOMY SERVICES TECHNICIAN: Not applicable. Respiratory: No shortness of breath. Cardiovascular: No chest pain. Neuro: Has neuropathy. Musculoskeletal: Has foot pain. Endocrine: No polydipsia. Skin: No rash. Physical Examination: Vital Signs: When I saw the patient, blood pressure of 146/78, pulse of 83, afebrile. Chest: Clear to auscultation. Heart: S1, S2. Regular. Abdomen: Soft, nontender. Extremities: Right below-knee amputation. Left, no edema. Neurological: Alert and oriented x3. Nonfocal. Laboratory Data: WBC 11.3, H and H 11.1/35.8, platelets of 243. Sodium 135, potassium 4.4, bicarb 2 5, BUN 28, creatinine 4.3, calcium 8.8. Medications: Current medications the patient on its include: 1.Metoprolol 25. 2.Plavix. 3.Alprazolam. 4.Lyrica. 5.Lasix 20 b.i.d. 6.Metolazone. 7.Ranitidine. 8.Hydrocodone. 9.Multivitamin. Assessment And Plan: 1.End-stage renal disease, normal volume. We will continue the patient on dialysis Monday, , Monday. 2.Secondary hyperparathyroidism, stable. 3.Anemia of chronic kidney disease. No need for HALIMA. 4.Foot infection status post below-knee amputation. We will follow up with ID. 5.Peripheral vascular disease status post amputation. We will follow up. 6.Diabetes as by primary. 7.Deconditioning. Continue with physical therapy. Thank you Dr. Malcolm for allowing us to participate in the care of your patient. Case discussed wi th the patient, verbalized understanding. Discussed with the staff. HARRIET Voice ID: [id number] Report ID: [id number]
[2017-10-28] MEDS: RANITIDINE 150 MG TABLET PO SCH (20:57)
[2017-10-28] MEDS ORDERED: DOCUSATE NA/SENNA CONC 1 TAB PO SCH (21:00)
[2017-10-28] MEDS: PROMOD 30 ML DOSE PO SCH (21:01)
[2017-10-29] MEDS: hydrOXYzine HCl 25 MG TAB PO PRN ×2 (00:12→16:57)
[2017-10-29] MEDS: HYDROCODONE/APAP 10/325 TAB PO PRN ×2 (04:05→15:57)
[2017-10-29] MEDS: METOPROLOL TAR 25 MG TAB PO SCH (05:21)
[2017-10-29] MEDS: INSULIN -REGULAR HUMAN 50 UNIT/0.5 ML ML SQ SCH ×4 (07:30→20:33)
[2017-10-29] MEDS: HEPARIN 5000 UNIT/ML 1 ML VIAL SQ SCH ×2 (07:30→18:29)
[2017-10-29] MEDS: CLOPIDOGREL 75 MG TABLET PO SCH (08:09)
[2017-10-29] MEDS: MUPIROCIN 2% OINT 22GM TUBE TOP SCH (08:09)
[2017-10-29] MEDS: PREGABALIN 50 MG CAP PO SCH ×2 (08:10→20:32)
[2017-10-29] MEDS: MULTIVITAMINS,THERAPEUT 1 TAB PO SCH (08:10)
[2017-10-29] MEDS: FUROSEMIDE 20 MG TABLET PO SCH ×2 (08:10→20:32)
[2017-10-29] MEDS: METOLAZONE 5 MG TABLET PO SCH (08:11)
[2017-10-29] MEDS: PROMOD 30 ML DOSE PO SCH ×2 (08:11→20:33)
[2017-10-29] MEDS ORDERED: DOCUSATE NA/SENNA CONC 1 TAB PO PRN (13:08)
[2017-10-29] MEDS: RANITIDINE 150 MG TABLET PO SCH (20:32)
[2017-10-30] MEDS: hydrOXYzine HCl 25 MG TAB PO PRN ×2 (05:08→23:44)
[2017-10-30] MEDS: METOPROLOL TAR 25 MG TAB PO SCH (05:13)
[2017-10-30] MEDS: INSULIN -REGULAR HUMAN 50 UNIT/0.5 ML ML SQ SCH ×4 (07:30→22:37)
[2017-10-30] MEDS: PROMOD 30 ML DOSE PO SCH ×2 (08:00→22:25)
[2017-10-30] MEDS: HEPARIN 5000 UNIT/ML 1 ML VIAL SQ SCH ×2 (08:00→22:08)
[2017-10-30] MEDS: HYDROCODONE/APAP 10/325 TAB PO PRN ×2 (08:06→21:46)
[2017-10-30] MEDS: METOLAZONE 5 MG TABLET PO SCH (08:07)
[2017-10-30] MEDS: CLOPIDOGREL 75 MG TABLET PO SCH (08:07)
[2017-10-30] MEDS: PREGABALIN 50 MG CAP PO SCH ×2 (08:08→21:48)
[2017-10-30] MEDS: MULTIVITAMINS,THERAPEUT 1 TAB PO SCH (08:08)
[2017-10-30] MEDS: LISINOPRIL 10 MG TAB PO SCH (08:09)
[2017-10-30] MEDS: FUROSEMIDE 20 MG TABLET PO SCH ×2 (08:09→21:48)
[2017-10-30] MEDS: MUPIROCIN 2% OINT 22GM TUBE TOP SCH (08:11)
[2017-10-30] MEDS: RANITIDINE 150 MG TABLET PO SCH (21:48)
[2017-10-30] MEDS: ALPRAZOLAM 1 MG TABLET PO PRN (22:32)
--- NOTE | 2017-10-31 03:05 | PN ---
Date of Progress Note: 10/30/2017 Chief Complaint: End-stage renal disease on dialysis. The patient has significant comorbidities including history of peripheral vascular disease, coronary artery disease, congestive heart failure with systolic dysfunction, history of PTCA, history of BKA for lower extremity gangrene and peripheral vascular disease. The patient is undergoing rehab. Review of Systems: Denies fever, chills. Denies nausea or vomiting. Physical Examination: Lungs: Clear to auscultation bilaterally. Heart: S1, S2. Abdomen: Soft, benign. Extremities: Dressing in place. Laboratory Data: Glucose 131, sodium 135, potassium 4.9, chloride 102, CO2 25, BUN 53, creatinine 6.38, magnesium 2.1, calcium 9.2, and albumin 2.4. Impression: 1. End-stage renal disease. Dialysis is scheduled for today. Continue renal diet with low-potassium diet and low-phosphorus diet. Monitor electrolytes. Adjust binders for renal osteodystrophy and to control hyperphosphatemia. 2. Hypoalbuminemia. Increase p.o. protein intake. 3. Diabetes mellitus. Continue insulin. 4. Hypertension. Blood pressure medication adjusted. Monitor blood pressure closely during dialysis. Blood pressure in good control. ELMER/DONNA Voice ID: [id number] Report ID: [id number] HEATHER
[2017-10-31] MEDS: METOPROLOL TAR 25 MG TAB PO SCH (05:32)
[2017-10-31] MEDS: HYDROCODONE/APAP 10/325 TAB PO PRN ×2 (07:17→20:59)
[2017-10-31] MEDS: INSULIN -REGULAR HUMAN 50 UNIT/0.5 ML ML SQ SCH ×4 (07:30→21:00)
[2017-10-31] MEDS: PREGABALIN 50 MG CAP PO SCH ×2 (08:17→20:59)
[2017-10-31] MEDS: METOLAZONE 5 MG TABLET PO SCH (08:17)
[2017-10-31] MEDS: CLOPIDOGREL 75 MG TABLET PO SCH (08:18)
[2017-10-31] MEDS: FUROSEMIDE 20 MG TABLET PO SCH ×2 (08:18→20:58)
[2017-10-31] MEDS: MUPIROCIN 2% OINT 22GM TUBE TOP SCH ×2 (08:18→20:00)
[2017-10-31] MEDS: MULTIVITAMINS,THERAPEUT 1 TAB PO SCH (08:18)
[2017-10-31] MEDS: PROMOD 30 ML DOSE PO SCH ×2 (08:19→21:01)
[2017-10-31] MEDS: LISINOPRIL 10 MG TAB PO SCH (08:22)
[2017-10-31] MEDS: HEPARIN 5000 UNIT/ML 1 ML VIAL SQ SCH ×2 (08:55→23:23)
[2017-10-31] MEDS: hydrOXYzine HCl 25 MG TAB PO PRN (18:41)
[2017-10-31] MEDS: RANITIDINE 150 MG TABLET PO SCH (21:00)
[2017-10-31] MEDS: ALPRAZOLAM 1 MG TABLET PO PRN (21:05)
[2017-11-01] MEDS: HYDROCORTISONE 1 % CREAM 30GM TOP PRN ×2 (02:17→22:36)
--- NOTE | 2017-11-01 04:33 | PN ---
Date of Progress Note: 10/31/2017 The patient doing well. The patient is participating in physical therapy status post dialysis yester day, tolerated the dialysis. Physical Examination: Vital Signs: Blood pressure of 145/88, pulse of 88. Chest: Clear to auscultation. Heart: S1, S2. Systolic murmur. Abdomen: Soft, nontender. Extremities: Right below-knee amputation. No edema. Laboratory Data: H and H 11/35.6. Sodium 135, potassium 4.5, bicarb 25, BUN 53, creatinine 6.3, apollo cium 9.3. Medications: Current medications the patient is on include: 1.Plavix. 2.Alprazolam. 3.Hydrocodone. 4.Lasix 20 b.i.d. 5.Insulin. 6.Lisinopril 10. 7.Metoprolol 25 b.i.d. 8.Lyrica. 9.Zantac. 10.B complex. Assessment And Plan: 1.End-stage renal disease. Normal volume. We will arrange for the dialysis tomorrow. We will dial yze on 2K bath, and we will challenge the patient. 2.Hypertension, controlled. We will follow up blood pressure after dialysis. 3.Anemia of chronic kidney disease, H and H being stable, I do not see any need for HALIMA. 4.Secondary hyperparathyroidism. I am going to follow up on phosphorous level. 5.Infected foot status post below knee amputation, continue PT/OT. 6.Diabetes as by primary. Case discussed with the patient, verbalized understanding. HARRIET Voice ID: [id number] Report ID: [id number]
[2017-11-01] MEDS: METOPROLOL TAR 25 MG TAB PO SCH (05:00)
[2017-11-01] MEDS: HEPARIN 5000 UNIT/ML 1 ML VIAL SQ SCH ×3 (06:06→22:27)
[2017-11-01 07:11] LABS: Albumin 2.4 g/dL (3.2-5.5); Phosphorus 8.4 mg/dL (2.5-4.3)
[2017-11-01] MEDS: INSULIN -REGULAR HUMAN 50 UNIT/0.5 ML ML SQ SCH ×4 (07:30→22:23)
[2017-11-01] MEDS: CLOPIDOGREL 75 MG TABLET PO SCH (08:00)
[2017-11-01] MEDS: PREGABALIN 50 MG CAP PO SCH ×2 (08:00→22:25)
[2017-11-01] MEDS: PROMOD 30 ML DOSE PO SCH ×2 (08:00→22:28)
[2017-11-01] MEDS: METOLAZONE 5 MG TABLET PO SCH (08:00)
[2017-11-01] MEDS: FUROSEMIDE 20 MG TABLET PO SCH ×2 (08:00→22:26)
[2017-11-01] MEDS: MULTIVITAMINS,THERAPEUT 1 TAB PO SCH (08:00)
[2017-11-01] MEDS: HYDROCODONE/APAP 10/325 TAB PO PRN ×2 (12:26→22:36)
[2017-11-01] MEDS: RANITIDINE 150 MG TABLET PO SCH (22:27)
[2017-11-01] MEDS: ALPRAZOLAM 1 MG TABLET PO PRN (22:36)
[2017-11-02] MEDS: METOPROLOL TAR 25 MG TAB PO SCH (05:17)
[2017-11-02 06:20] LABS: Absolute Lymphocytes (CBC) 0.8 K/uL (0.7-4.9); Absolute Monocytes 1.1 K/uL (0.1-1.3); Absolute Neutrophil 6.4 K/uL (1.8-8.0); Basophils % 3.2 % (0-1.3); Eosinophils % 6.7 % (0-4.4); Hematocrit 36.5 % (39.6-49.0); MCH 28.2 pg (27.0-35.0); MCV 87.7 fL (80-100); MPV 9.4 fL (7.6-11.3); Monocytes % 11.6 % (3.3-12.3); RBC Red Blood Cell Count 4.16 M/uL (4.33-5.43)
[2017-11-02 06:46] LABS: Albumin 2.6 g/dL (3.2-5.5); Potassium 4.9 mEq/L (3.6-5.0); Prealbumin 23.6 mg/dl (18-38)
[2017-11-02] MEDS: HYDROCODONE/APAP 10/325 TAB PO PRN ×2 (06:58→14:20)
[2017-11-02 07:27] LABS: Blood Morphology Comment NOT SEEN (NOT SEEN); Platelet Estimate ADEQ; Urine White Blood Cell Casts OK
[2017-11-02] MEDS: INSULIN -REGULAR HUMAN 50 UNIT/0.5 ML ML SQ SCH ×4 (07:30→20:36)
[2017-11-02] MEDS: MUPIROCIN 2% OINT 22GM TUBE TOP SCH (08:37)
[2017-11-02] MEDS: MULTIVITAMINS,THERAPEUT 1 TAB PO SCH (08:38)
[2017-11-02] MEDS: PREGABALIN 50 MG CAP PO SCH ×2 (08:38→20:35)
[2017-11-02] MEDS: FUROSEMIDE 20 MG TABLET PO SCH ×2 (08:38→20:35)
[2017-11-02] MEDS: CLOPIDOGREL 75 MG TABLET PO SCH (08:38)
[2017-11-02] MEDS: METOLAZONE 5 MG TABLET PO SCH (08:38)
[2017-11-02] MEDS: HEPARIN 5000 UNIT/ML 1 ML VIAL SQ SCH ×2 (09:04→18:31)
[2017-11-02] MEDS: LISINOPRIL 10 MG TAB PO SCH (09:08)
[2017-11-02] MEDS: PROMOD 30 ML DOSE PO SCH ×2 (09:09→20:35)
[2017-11-02] MEDS: HYDROCORTISONE 1 % CREAM 30GM TOP PRN ×2 (14:23→22:58)
[2017-11-02] MEDS: RANITIDINE 150 MG TABLET PO SCH (20:35)
[2017-11-02] MEDS: hydrOXYzine HCl 25 MG TAB PO PRN (22:58)
[2017-11-03] MEDS: METOPROLOL TAR 25 MG TAB PO SCH (05:30)
[2017-11-03 05:46] VITALS: BMI 22.6
[2017-11-03] MEDS: INSULIN -REGULAR HUMAN 50 UNIT/0.5 ML ML SQ SCH ×3 (07:30→16:30)
[2017-11-03] MEDS: HYDROCODONE/APAP 10/325 TAB PO PRN ×2 (08:18→13:18)
[2017-11-03] MEDS: MULTIVITAMINS,THERAPEUT 1 TAB PO SCH (08:19)
[2017-11-03] MEDS: FUROSEMIDE 20 MG TABLET PO SCH (08:19)
[2017-11-03] MEDS: PREGABALIN 50 MG CAP PO SCH (08:19)
[2017-11-03] MEDS: CLOPIDOGREL 75 MG TABLET PO SCH (08:19)
[2017-11-03] MEDS: MUPIROCIN 2% OINT 22GM TUBE TOP SCH (08:21)
[2017-11-03] MEDS: PROMOD 30 ML DOSE PO SCH (08:22)
[2017-11-03 08:23] VITALS: BP 130/59
[2017-11-03] MEDS: METOLAZONE 5 MG TABLET PO SCH (08:23)
[2017-11-03] MEDS: HEPARIN 5000 UNIT/ML 1 ML VIAL SQ SCH (08:40)
[2017-11-03 09:31] VITALS: TEMP 97.4
--- NOTE | 2017-11-03 09:58 | P.RH.PN ---
Estimated Length of Stay: 9 Expected Discharge Date: 11/03/17 Discharge Disposition Plan: Home Family Support: Yes Icu Clerk Goal: Mobility, Transfers, Self Care Vital Signs: Last Vital Signs Temp 97.4 F 11/03/17 08:00 Pulse 78 11/03/17 08:23 Resp 18 11/03/17 08:00 BP 130/59 L 11/03/17 08:23 Pulse Ox 94 11/03/17 08:00 Laboratory: Laboratory Last Values WBC 9.2 K/uL (4.3-10.9) D 11/02/17 06:02 RBC 4.16 M/uL (4.33-5.43) L 11/02/17 06:02 Hgb 11.7 g/dL (13.6-17.9) L 11/02/17 06:02 Hct 36.5 % (39.6-49.0) L 11/02/17 06:02 MCV 87.7 fL (80-100) 11/02/17 06:02 MCH 28.2 pg (27.0-35.0) 11/02/17 06:02 MCHC 32.2 g/dL (32.0-36.0) 11/02/17 06:02 RDW 17.0 % (12.1-15.2) H 11/02/17 06:02 Plt Count 254 K/uL (152-406) 11/02/17 06:02 MPV 9.4 fL (7.6-11.3) 11/02/17 06:02 Neutrophils % 69.5 % (41.7-73.7) 11/02/17 06:02 Lymphocytes % 9.0 % (15.3-44.8) L 11/02/17 06:02 Monocytes % 11.6 % (3.3-12.3) 11/02/17 06:02 Eosinophils % 6.7 % (0-4.4) H 11/02/17 06:02 Basophils % 3.2 % (0-1.3) H 11/02/17 06:02 Absolute Neutrophils 6.4 K/uL (1.8-8.0) 11/02/17 06:02 Absolute Lymphocytes 0.8 K/uL (0.7-4.9) 11/02/17 06:02 Absolute Monocytes 1.1 K/uL (0.1-1.3) 11/02/17 06:02 Absolute Eosinophils 0.6 K/uL (0-0.5) H 11/02/17 06:02 Absolute Basophils 0.3 K/uL (0-0.5) 11/02/17 06:02 Morphology Comment Not seen (NOT SEEN) 11/02/17 06:02 Sodium 137 mEq/L (135-145) 11/02/17 06:02 Potassium 4.9 mEq/L (3.6-5.0) 11/02/17 06:02 Chloride 102 mEq/L (101-111) 11/02/17 06:02 Carbon Dioxide 25 mEq/L (21-31) 11/02/17 06:02 BUN 66 mg/dL (6-20) H 11/02/17 06:02 Creatinine 5.96 mg/dL (0.61-1.24) H* 11/02/17 06:02 Estimated GFR 10 mL/min (=/>90) L 11/02/17 06:02 Glucose 117 mg/dL (65-120) 11/02/17 06:02 POC Glucose 104 mg/dl (65-120) 11/03/17 08:01 Calcium 9.0 mg/dL (8.5-10.5) 11/02/17 06:02 Phosphorus 8.4 mg/dL (2.5-4.3) H 11/01/17 06:11 Magnesium 2.1 mg/dL (1.8-2.5) 10/28/17 06:19 Albumin 2.6 g/dL (3.2-5.5) L 11/02/17 06:02 Prealbumin 23.6 mg/dl (18-38) 11/02/17 06:02 Weight: 132 lb 2 oz Wound Present: Yes Closed Surgical Incision Present: Yes Negative Pressure Wound Therapy Present: No Physician Update: He is doing well with physical and occupational therapy he is ready for discarge home today. He is medically stable. Pain Issues: on [place] 10/325mg Q6H PRN Comment: open to air Functional Improvement Occupational Therapy: pt can benifit with further therapy to address safety and technique wrapping the residual limb and safety cover the residual limb for bathing. cont to gain and increase pt's UB strength to assist for functional transfers and for adl tasks. Cont to increase pt's endurance and static standing for clothing mgmt. Summary: Patient's care plan and exterminator goals have been reviewed and revised as necessary. Please see the Rehabilitation Signature page for all necessary signatures.
--- NOTE | 2017-11-04 03:18 | PN ---
Date of Progress Note: 11/03/2017 Subjective: The patient had fall today. Physical Examination: Vital Signs: When I saw the patient, blood pressure of 130/59, pulse of 78. Chest: Clear to auscultation. Heart: S1, S2. Regular. Abdomen: Soft, nontender. Extremities: Right below-knee amputation. Laboratory Data: H and H 11.7/36.5. Sodium 137, potassium 4.9, bicarb 25, BUN 66, creatinine 5.9, c alcium of 9. Current Medications: The patient is on include. 1.Plavix. 2.Omeprazole. 3.Hydrocortisone. 4.Lisinopril 10. 5.Metolazone. 6.Metoprolol 25. 7.Lyrica. 8.Ranitidine. Assessment And Plan: 1.End-stage renal disease. Normal volume. Continue current dialysis. The patient is status post d ialysis today, tolerated well. 2.Hypertension, controlled optimal. Continue current medication. 3.Anemia. Continue Epogen. 4.Foot infection status post below-knee amputation. 5.Continue PT/OT. The patient cleared from the renal standpoint for discharge planning, will follow up with the primary . HARRIET Voice ID: [id number] Report ID: [id number]
== END 2017-11-03 18:30 | disposition home or self-care (01) | DRG 602 ==
LOC: 5TH 10-27 13:34
PROVIDERS: ADMIT Psychiatry & Neurology Neurology with Special Qualifications in Child Neurology; ATTEND Psychiatry & Neurology Neurology with Special Qualifications in Child Neurology
PROC: 5A1D70Z Performance of Urinary Filtration, Intermittent, Less than 6 Hours Per Day (ICD-10-PCS; principal; 2017-10-28)
PROC: 5A1D70Z Performance of Urinary Filtration, Intermittent, Less than 6 Hours Per Day (ICD-10-PCS; 2017-10-30)
PROC: 5A1D70Z Performance of Urinary Filtration, Intermittent, Less than 6 Hours Per Day (ICD-10-PCS; 2017-11-01)
PROC: 5A1D70Z Performance of Urinary Filtration, Intermittent, Less than 6 Hours Per Day (ICD-10-PCS; 2017-11-03)
DX: L08.9 Local infection of the skin and subcutaneous tissue, unspecified (principal); N18.6 End stage renal disease; N25.81 Secondary hyperparathyroidism of renal origin; I13.2 Hypertensive heart and chronic kidney disease with heart failure and with stage 5 chronic kidney disease, or end stage renal disease; D64.9 Anemia, unspecified; D63.1 Anemia in chronic kidney disease; E11.22 Type 2 diabetes mellitus with diabetic chronic kidney disease; I50.9 Heart failure, unspecified; I73.9 Peripheral vascular disease, unspecified; Z89.511 Acquired absence of right leg below knee; Z99.2 Dependence on renal dialysis
CPT/HCPCS: 36415; 80048; 80069; 82040; 82962; 83735; 84134; 85025; 90935; 97542; J1644

== ENCOUNTER 2017-11-04 17:53 | Emergency (ER) | payer BC, OTHER ==
--- NOTE | 2017-11-04 19:09 | EDPHYS ---
Physician Documentation [facility] Name: Justus Prasad Age: 51 yrs Sex: Male : 1965 Arrival Date: 11/04/2017 Time: 17:58 Bed 14 Private MD: ED Physician Mike Denson HPI: 11/04 19:04 This 51 yrs old Male presents to ER via Wheelchair with complaints of BLEEDING snw FROM AMPUTATION. 19:04 Onset: The symptoms/episode began/occurred suddenly, just prior to arrival. Associated snw signs and symptoms: Pertinent positives: bleeding. It is unknown whether or not the patient has had similar symptoms in the past. The patient has been recently seen by a physician: Dr. Mclaughlin. pt states he was just released from hospital yest. Historical: - Allergies: 18:03 Clindamycin; aa5 - Home Meds: 18:10 alprazolam 0.25 mg Oral tab as needed [Active]; aspirin 81 mg Oral TbEC 1 tab once rb1 daily [Active]; Insulin: Novolin 70/30 sliding scale Sub-Q before meals [Active]; lisinopril 5 mg Oral tab 1 tab on Tues, Thurs, Sat and Sun only [Active]; Lyrica 50 mg Oral 2 times per day [Active]; metoprolol tartrate 25 mg Oral tab 1 tab 2 times per day [Active]; Nitroglycerin Oral as needed [Active]; Plavix 75 mg Oral tab 1 tab once daily [Active]; Renvela 800 mg Oral tab 2 tabs 3 times per day [Active]; - PMHx: 18:03 cardiac stents; CHF; Diabetes - IDDM; DIALYSIS MWF; ESRD; Hypertension; Myocardial aa5 infarction; - PSHx: 18:03 R chest wall dialysis shunt; aa5 18:10 right BKA; rb1 - Immunization history:: Adult Immunizations unknown. - Social history:: Smoking status: Patient/guardian denies using tobacco. ROS: 18:57 Constitutional: Negative for fever, chills, and weight loss, Eyes: Negative for injury, snw pain, redness, and discharge, ENT: Negative for injury, pain, and discharge, Neck: Negative for injury, pain, and swelling, Cardiovascular: Negative for chest pain, palpitations, and edema, Respiratory: Negative for shortness of breath, cough, wheezing, and pleuritic chest pain, Abdomen/GI: Negative for abdominal pain, nausea, vomiting, diarrhea, and constipation, Back: Negative for injury and pain, : Negative for injury, bleeding, discharge, and swelling, Skin: Negative for injury, rash, and discoloration, Neuro: Negative for headache, weakness, numbness, tingling, and seizure. 18:57 MS/extremity: Positive for injury or acute deformity, with bleeding to stump at recent amputation site s/p hitting it on w/c. Exam: 18:57 Constitutional: This is a well developed, well nourished patient who is awake, alert, snw and in no acute distress. Head/Face: Normocephalic, atraumatic. Eyes: Pupils equal round and reactive to light, extra-ocular motions intact. Lids and lashes normal. Conjunctiva and sclera are non-icteric and not injected. Cornea within normal limits. Periorbital areas with no swelling, redness, or edema. ENT: Nares patent. No nasal discharge, no septal abnormalities noted. Tympanic membranes are normal and external auditory canals are clear. Oropharynx with no redness, swelling, or masses, exudates, or evidence of obstruction, uvula midline. Mucous membranes moist. Neck: Trachea midline, no thyromegaly or masses palpated, and no cervical lymphadenopathy. Supple, full range of motion without nuchal rigidity, or vertebral point tenderness. No Meningismus. Chest/axilla: Normal chest wall appearance and motion. Nontender with no deformity. No lesions are appreciated. 18:57 Abdomen/GI: Soft, non-tender, with normal bowel sounds. No distension or tympany. No guarding or rebound. No evidence of tenderness throughout. Back: No spinal tenderness. No costovertebral tenderness. Full range of motion. Skin: Warm, dry with normal turgor. Normal color with no rashes, no lesions, and no evidence of cellulitis. MS/ Extremity: Pulses equal, no cyanosis. Neurovascular intact. recent amputation to left leg, stump with central 4 elissa pulled through skin, minimal bleeding noted, no evidence of infection Neuro: Awake and alert, GCS 15, oriented to person, place, time, and situation. Cranial nerves II-XII grossly intact. Motor strength 5/5 in all extremities. Sensory grossly intact. Cerebellar exam normal. Normal gait. 18:57 Cardiovascular: Rate: normal, Heart sounds: murmur. Vital Signs: 18:04 BP 115 / 62; Pulse 68; Resp 16 S; Temp 99.2(TE); Pulse Ox 96% on R/A; Weight 58.97 kg aa5 (R); Pain 10/10; 19:30 BP 120 / 60; Pulse 70; Resp 18; Pulse Ox 97% on R/A; Pain 8/10; ea MDM: 18:23 Patient medically screened. snw 18:52 Data reviewed: vital signs, nurses notes. Data interpreted: Pulse oximetry: on room air snw is 96 %. Interpretation: acceptable. Counseling: I had a detailed discussion with the patient and/or guardian regarding: the historical points, exam findings, and any diagnostic results supporting the discharge/admit diagnosis, the need for outpatient follow up, to return to the emergency department if symptoms worsen or persist or if there are any questions or concerns that arise at home. Physician consultation: Inocencio Mclaughlin MD was called at 18:53, was contacted at 18:53, regarding patient's condition, Dr. Denson spoke with Dr. Mclaughlin who recommends wet to dry dressing changes with wound care follow up. Special discussion: Based on the history and exam findings, there is no indication for further emergent testing or inpatient evaluation. I discussed with the patient/guardian the need to see the general surgeon for further evaluation of the symptoms. I discussed with the patient/guardian the need to see the primary care provider for further evaluation of the symptoms. 11/04 19:14 Order name: Wound dressing: moist to dry dressing; Complete Time: 19:49 snw Administered Medications: 19:32 Drug: [place] 5 mg-325 mg 1 tabs Route: PO; ea 19:49 Follow up: Response: No adverse reaction; Pain is decreased ea Disposition: 11/05 10:33 Co-signature as Attending Physician, Mike Denson MD. rn Disposition: 11/04/17 19:08 Discharged to Home. Impression: Wound check post contusion. - Condition is Stable. - Discharge Instructions: Delayed Wound Closure, Sutured Wound Care, Wound Check. - Medication Reconciliation Form, Thank You Letter, Antibiotic Education, Prescription Opioid Use form. - Follow up: Private Physician; When: 2 - 3 days; Reason: Recheck today's complaints, Continuance of care, Re-evaluation by your physician. Signatures: Gabriella Torres, VP SECURITIES-C VP SECURITIES-Csnw Mike Denson MD MD rn Calderon, Audri RN RN aa5 Yee Corona, RN RN [facility] Mery Johns RN RN ea Corrections: (The following items were deleted from the chart) 11/04 19:54 19:08 11/04/2017 19:08 Discharged to Home. Impression: Wound check post contusion. ea Condition is Stable. Forms are Medication Reconciliation Form, Thank You Letter, Antibiotic Education, Prescription Opioid Use. Follow up: Private Physician; When: 2 - 3 days; Reason: Recheck today's complaints, Continuance of care, Re-evaluation by your physician. snw
--- NOTE | 2017-11-04 19:09 | ER ---
Nurse's Notes [facility] Name: Justus Prasad Age: 51 yrs Sex: Male : 1965 Arrival Date: 11/04/2017 Time: 17:58 Bed 14 Private MD: Diagnosis: Wound check post contusion Presentation: 11/04 18:03 Presenting complaint: Patient states: "I hit my leg with a walker" . Pt states "I had aa5 my leg amputated about 2 weeks ago and it started bleeding after I hit it". Transition of care: patient was not received from another setting of care. Onset of symptoms was November 04, 2017. Initial Sepsis Screen: Does the patient meet any 2 criteria? No. Patient's initial sepsis screen is negative. Does the patient have a suspected source of infection? No. Patient's initial sepsis screen is negative. Care prior to arrival: None. 18:03 Method Of Arrival: Wheelchair aa5 18:03 Acuity: KUNAL 4 aa5 Historical: - Allergies: 18:03 Clindamycin; aa5 - Home Meds: 18:10 alprazolam 0.25 mg Oral tab as needed [Active]; aspirin 81 mg Oral TbEC 1 tab once rb1 daily [Active]; Insulin: Novolin 70/30 sliding scale Sub-Q before meals [Active]; lisinopril 5 mg Oral tab 1 tab on Tues, Thurs, Sat and Sun only [Active]; Lyrica 50 mg Oral 2 times per day [Active]; metoprolol tartrate 25 mg Oral tab 1 tab 2 times per day [Active]; Nitroglycerin Oral as needed [Active]; Plavix 75 mg Oral tab 1 tab once daily [Active]; Renvela 800 mg Oral tab 2 tabs 3 times per day [Active]; - PMHx: 18:03 cardiac stents; CHF; Diabetes - IDDM; DIALYSIS MWF; ESRD; Hypertension; Myocardial aa5 infarction; - PSHx: 18:03 R chest wall dialysis shunt; aa5 18:10 right BKA; rb1 - Immunization history:: Adult Immunizations unknown. - Social history:: Smoking status: Patient/guardian denies using tobacco. Screenin:06 Abuse screen: Denies threats or abuse. Nutritional screening: No deficits noted. rb1 Tuberculosis screening: No symptoms or risk factors identified. Fall Risk No fall in past 12 months (0 pts). Secondary diagnosis (15 points) impaired mobility, No IV (0 pts). Ambulatory Aid- Crutches/Cane/Walker (15 pts). Gait- Impaired (20 pts.). Mental Status- Oriented to own ability (0 pts). Total Gonzales Fall Scale indicates High Risk Score (45 or more points). Fall prevention measures have been instituted. Side Rails Up X 2 Placed Close to Nursing Station 1:1 Attendant Assigned Frequent Obs/Assessments Occuring Family Present and informed to notify staff if the need to leave the bedside As available patient and family educated on Fall Prevention Program and Strategies. Assessment: 18:06 General: Appears uncomfortable, Behavior is calm, cooperative, Denies fever. Pain: rb1 Complains of pain in right leg Pain currently is 10 out of 10 on a pain scale. Pain began 1 hour ago. pt. stated, "I hit my leg on the walker and it started bleeding.". Neuro: Level of Consciousness is awake, alert, obeys commands, Oriented to person, place, time, situation. Cardiovascular: Capillary refill < 3 seconds is brisk in bilateral fingers. Respiratory: Airway is patent Respiratory effort is even, unlabored, Respiratory pattern is regular, symmetrical. GI: No signs and/or symptoms were reported involving the gastrointestinal system. : No signs and/or symptoms were reported regarding the genitourinary system. Derm: Skin is pink, warm \\T\\ dry. Musculoskeletal: Amputation of right BKA. Range of motion: intact in all extremities. 19:30 General: Appears uncomfortable, Behavior is calm, cooperative. Pain: Complains of pain ea in right leg Pain currently is 8 out of 10 on a pain scale. Neuro: Level of Consciousness is awake, alert, obeys commands, Oriented to person, place, time, situation. Cardiovascular: Patient's skin is warm and dry. Respiratory: Airway is patent Respiratory effort is even, unlabored, Respiratory pattern is regular, symmetrical. GI: No signs and/or symptoms were reported involving the gastrointestinal system. : No signs and/or symptoms were reported regarding the genitourinary system. Derm: Skin is pink, warm \\T\\ dry. 19:52 Reassessment: Patient is alert, oriented x 3, equal unlabored respirations, skin ea warm/dry/pink. Discharge instruction given to patient, verbalized the understanding of instruction. Vital Signs: 18:04 BP 115 / 62; Pulse 68; Resp 16 S; Temp 99.2(TE); Pulse Ox 96% on R/A; Weight 58.97 kg aa5 (R); Pain 10/10; 19:30 BP 120 / 60; Pulse 70; Resp 18; Pulse Ox 97% on R/A; Pain 8/10; ea ED Course: 17:58 Patient arrived in ED. sb2 18:02 Arm band placed on. aa5 18:04 Triage completed. aa5 18:06 Patient has correct armband on for positive identification. Placed in gown. Bed in low rb1 position. Call light in reach. Side rails up X 1. Pulse ox on. NIBP on. 18:14 Yee Corona, RN is Primary Nurse. rb1 18:18 Gabriella Torres FNP-C is PHCP. snw 18:18 Mike Denson MD is Attending Physician. snw 18:55 Report given to PANDA Ordonez. rb1 19:51 No provider procedures requiring assistance completed. Patient did not have IV access ea during this emergency room visit. Administered Medications: 19:32 Drug: [place] 5 mg-325 mg 1 tabs Route: PO; ea 19:49 Follow up: Response: No adverse reaction; Pain is decreased ea Outcome: 19:08 Discharge ordered by . snw 19:51 Discharged to home via wheelchair, with family. ea 19:51 Condition: improved 19:51 Discharge instructions given to patient, family, Instructed on discharge instructions, follow up and referral plans. Demonstrated understanding of instructions, follow-up care. 19:54 Patient left the ED. ea Signatures: Gabriella Torres FNP-C HUMAN RESOURCES DEPARTMENT SUPERVISOR-Csnw Yelitza Scott RN RN aa5 Yee Corona, RN Mery Layton RN RN ea Billeau, Sheri sb2
[2017-11-04] MEDS ORDERED: HYDROCODONE/APAP 5/325 MG TAB ONE (19:28)
[2017-11-04 19:58] VITALS: TEMP 99.2
[2017-11-04 19:59] VITALS: BP 120/60; O2SAT 97
== END 2017-11-04 19:54 | disposition home or self-care (01) ==
LOC: ER 17:53
DX: Z48.01 Encounter for change or removal of surgical wound dressing (principal); I10 Essential (primary) hypertension; I12.0 Hypertensive chronic kidney disease with stage 5 chronic kidney disease or end stage renal disease; E11.22 Type 2 diabetes mellitus with diabetic chronic kidney disease; N18.6 End stage renal disease; Z79.4 Long term (current) use of insulin; Z79.82 Long term (current) use of aspirin; Z88.3 Allergy status to other anti-infective agents; Z99.2 Dependence on renal dialysis; Z89.611 Acquired absence of right leg above knee; Z95.818 Presence of other cardiac implants and grafts
CPT/HCPCS: 99283

== ENCOUNTER 2017-11-05 16:36 | Emergency (ER) | payer BC, OTHER ==
[2017-11-05] MEDS ORDERED: NACL 0.9% IRR SOLN 2,000 ML IRR ONE (17:21)
--- NOTE | 2017-11-05 17:48 | ER ---
Nurse's Notes [facility] Name: Justus Prasad Age: 51 yrs Sex: Male : 1965 Arrival Date: 11/05/2017 Time: 16:40 Bed 13 Private MD: Diagnosis: Fall on same level from slipping, tripping and stumbling;Encounter for wound evaluation Presentation: 11/05 16:53 Presenting complaint: Patient states: Fell today in bathroom, hitting right amputation aj stump. Patient states, "I think the incision may have opened up a little.". Care prior to arrival: None. Mechanism of Injury: Fall from standing position. Trauma event details: [facility] occurred in [facility], Injury occurred: at home. Injury occurred: November 05, 2017 Injury occurred at: 16:25. 16:53 Acuity: KUNAL 4 16:53 Method Of Arrival: Wheelchair 16:58 Transition of care: patient was not received from another setting of care. Onset of aj symptoms was November 05, 2017. Initial Sepsis Screen: Does the patient meet any 2 criteria? No. Patient's initial sepsis screen is negative. Does the patient have a suspected source of infection? No. Patient's initial sepsis screen is negative. Trauma Activation: Not Applicable Physician: ED Physician; Name: ; Notified At: ; Arrived At: Physician: General Surgeon; Name: ; Notified At: ; Arrived At: Physician: Radiology; Name: ; Notified At: ; Arrived At: Physician: Respiratory; Name: ; Notified At: ; Arrived At: Physician: Lab; Name: ; Notified At: ; Arrived At: Historical: - Allergies: 16:59 Clindamycin; aj - Home Meds: 16:59 alprazolam 0.25 mg Oral tab as needed [Active]; aspirin 81 mg Oral TbEC 1 tab once aj daily [Active]; Insulin: Novolin 70/30 sliding scale Sub-Q before meals [Active]; lisinopril 5 mg Oral tab 1 tab on Tues, Thurs, Sat and Sun only [Active]; Lyrica 50 mg Oral 2 times per day [Active]; metoprolol tartrate 25 mg Oral tab 1 tab 2 times per day [Active]; Nitroglycerin Oral as needed [Active]; Plavix 75 mg Oral tab 1 tab once daily [Active]; Renvela 800 mg Oral tab 2 tabs 3 times per day [Active]; - PMHx: 16:59 cardiac stents; CHF; DIALYSIS MWF; Diabetes - IDDM; ESRD; Myocardial infarction; aj Hypertension; - PSHx: 16:59 right BKA; R chest wall dialysis shunt; aj - Immunization history: Last tetanus immunization: - up to date. - Social history:: Smoking status: Patient/guardian denies using tobacco. Screenin:48 Abuse screen: Denies threats or abuse. Nutritional screening: No deficits noted. la1 Tuberculosis screening: No symptoms or risk factors identified. Fall Risk None identified. Primary Survey: 16:53 A: Airway: patent. Breathing/Chest: Respiratory pattern: regular, Respiratory effort: aj spontaneous, unlabored, Breath sounds: clear, Chest inspection: symmetrical rise and fall of the chest. Circulation: Skin color: pink, Skin temperature: warm, dry. Disability Alert. Assessment: 16:53 General: Appears in no apparent distress. comfortable, Behavior is calm, cooperative, aj appropriate for age. Pain: Complains of pain in right knee. Neuro: Level of Consciousness is awake, alert, obeys commands, Oriented to person, place, time, situation, Appropriate for age. Respiratory: Airway is patent Respiratory effort is even, unlabored, Respiratory pattern is regular, symmetrical. Derm: Skin is intact, is healthy with good turgor, Skin is pink, warm \\T\\ dry. normal. Musculoskeletal: Reports pain in right knee. 17:48 Reassessment: Patient appears in no apparent distress at this time. No changes from la1 previously documented assessment. Vital Signs: 16:53 BP 120 / 64; Pulse 82; Resp 17; Temp 98.5; Pulse Ox 98% on R/A; Weight 83.91 kg; Height aj 5 ft. 8 in. (172.72 cm); 16:53 Body Mass Index 28.13 (83.91 kg, 172.72 cm) aj Jj Coma Score: 16:53 Eye Response: spontaneous(4). Verbal Response: oriented(5). Motor Response: obeys aj commands(6). Total: 15. Trauma Score (Adult): 16:53 Eye Response: spontaneous(1); Verbal Response: oriented(1); Motor Response: obeys aj commands(2); Systolic BP: > 89 mm Hg(4); Respiratory Rate: 10 to 29 per min(4); Jj Score: 15; Trauma Score: 12 ED Course: 16:40 Patient arrived in ED. sb2 16:56 Triage completed. aj 16:59 Arm band placed on left wrist. Patient placed in waiting room, Patient notified of wait aj time. 17:31 Gabriella [facility]C [facility]. snw 17:31 Mike Denson MD is Attending Physician. snw 17:44 Santiago Pascual, PANDA is Primary Nurse. la1 17:48 Call light in reach. la1 17:48 No provider procedures requiring assistance completed. Patient did not have IV access la1 during this emergency room visit. Administered Medications: No medications were administered Outcome: 17:47 Discharge ordered by MD. snw 17:48 Discharged to home ambulatory. la1 17:48 Condition: stable 17:48 Discharge instructions given to patient, Instructed on discharge instructions, follow up and referral plans. medication usage, Demonstrated understanding of instructions, follow-up care, medications. 17:52 Patient left the ED. la1 Signatures: Bianka Ritchie, RN RN Gabriella Ernst FNP-C FNP-Santiago Rao RN RN la1 Petra Caballero sb2
--- NOTE | 2017-11-05 17:48 | EDPHYS ---
Physician Documentation [facility] Name: Justus Prasad Age: 51 yrs Sex: Male : 1965 Arrival Date: 11/05/2017 Time: 16:40 Bed 13 Private MD: ED Physician Mike Denson HPI: 11/05 21:27 This 51 yrs old Male presents to ER via Wheelchair with complaints of Fall snw Injury. 21:27 Details of fall: The patient fell from an upright position, transferring. Onset: The snw symptoms/episode began/occurred suddenly, just prior to arrival. Associated injuries: The patient sustained no obvious injury. Severity of symptoms: At their worst the symptoms were very mild. The patient has experienced a previous episode, yesterday. The patient has been recently seen by a physician: The patient has been recently seen at the [facility] Emergency Department, yesterday, for similar complaints wound cleansed, surgeon consulted, encouraged to f/u wound care as directed by Surgeon. Historical: - Allergies: 16:59 Clindamycin; aj - Home Meds: 16:59 alprazolam 0.25 mg Oral tab as needed [Active]; aspirin 81 mg Oral TbEC 1 tab once aj daily [Active]; Insulin: Novolin 70/30 sliding scale Sub-Q before meals [Active]; lisinopril 5 mg Oral tab 1 tab on Tues, Thurs, Sat and Sun only [Active]; Lyrica 50 mg Oral 2 times per day [Active]; metoprolol tartrate 25 mg Oral tab 1 tab 2 times per day [Active]; Nitroglycerin Oral as needed [Active]; Plavix 75 mg Oral tab 1 tab once daily [Active]; Renvela 800 mg Oral tab 2 tabs 3 times per day [Active]; - PMHx: 16:59 cardiac stents; CHF; DIALYSIS MWF; Diabetes - IDDM; ESRD; Myocardial infarction; aj Hypertension; - PSHx: 16:59 right BKA; R chest wall dialysis shunt; aj - Immunization history: Last tetanus immunization: - up to date. - Social history:: Smoking status: Patient/guardian denies using tobacco. ROS: 21:26 Constitutional: Negative for fever, chills, and weight loss, Eyes: Negative for injury, snw pain, redness, and discharge, ENT: Negative for injury, pain, and discharge, Neck: Negative for injury, pain, and swelling, Cardiovascular: Negative for chest pain, palpitations, and edema, Respiratory: Negative for shortness of breath, cough, wheezing, and pleuritic chest pain, Abdomen/GI: Negative for abdominal pain, nausea, vomiting, diarrhea, and constipation, Back: Negative for injury and pain, : Negative for injury, bleeding, discharge, and swelling, Skin: Negative for injury, rash, and discoloration, Neuro: Negative for headache, weakness, numbness, tingling, and seizure, Psych: Negative for depression, anxiety, suicide ideation, homicidal ideation, and hallucinations. 21:26 MS/extremity: Positive for injury or acute deformity, fell transferring and pt concerned for recent surgical site trauma. Exam: 21:25 Constitutional: This is a well developed, well nourished patient who is awake, alert, snw and in no acute distress. Head/Face: Normocephalic, atraumatic. Eyes: Pupils equal round and reactive to light, extra-ocular motions intact. Lids and lashes normal. Conjunctiva and sclera are non-icteric and not injected. Cornea within normal limits. Periorbital areas with no swelling, redness, or edema. ENT: Nares patent. No nasal discharge, no septal abnormalities noted. Tympanic membranes are normal and external auditory canals are clear. Oropharynx with no redness, swelling, or masses, exudates, or evidence of obstruction, uvula midline. Mucous membranes moist. Neck: Trachea midline, no thyromegaly or masses palpated, and no cervical lymphadenopathy. Supple, full range of motion without nuchal rigidity, or vertebral point tenderness. No Meningismus. Chest/axilla: Normal chest wall appearance and motion. Nontender with no deformity. No lesions are appreciated. Cardiovascular: Regular rate and rhythm with a normal S1 and S2. No gallops, murmurs, or rubs. Normal PMI, no JVD. No pulse deficits. Respiratory: Lungs have equal breath sounds bilaterally, clear to auscultation and percussion. No rales, rhonchi or wheezes noted. No increased work of breathing, no retractions or nasal flaring. Abdomen/GI: Soft, non-tender, with normal bowel sounds. No distension or tympany. No guarding or rebound. No evidence of tenderness throughout. Back: No spinal tenderness. No costovertebral tenderness. Full range of motion. Skin: Warm, dry with normal turgor. Normal color with no rashes, no lesions, and no evidence of cellulitis. Neuro: Awake and alert, GCS 15, oriented to person, place, time, and situation. Cranial nerves II-XII grossly intact. Motor strength 5/5 in all extremities. Sensory grossly intact. Cerebellar exam normal. Normal gait. Psych: Awake, alert, with orientation to person, place and time. Behavior, mood, and affect are within normal limits. 21:25 Musculoskeletal/extremity: Extremities: grossly normal except: noted in the right BKA stump, dressing not completely removed - no blood on bandages from yesterday: contusion, Circulation is intact in all extremities. Vital Signs: 16:53 BP 120 / 64; Pulse 82; Resp 17; Temp 98.5; Pulse Ox 98% on R/A; Weight 83.91 kg; Height aj 5 ft. 8 in. (172.72 cm); 16:53 Body Mass Index 28.13 (83.91 kg, 172.72 cm) aj Jj Coma Score: 16:53 Eye Response: spontaneous(4). Verbal Response: oriented(5). Motor Response: obeys aj commands(6). Total: 15. Trauma Score (Adult): 16:53 Eye Response: spontaneous(1); Verbal Response: oriented(1); Motor Response: obeys aj commands(2); Systolic BP: > 89 mm Hg(4); Respiratory Rate: 10 to 29 per min(4); Jj Score: 15; Trauma Score: 12 MDM: 17:41 Patient medically screened. snw 21:32 Data reviewed: vital signs, nurses notes. Data interpreted: Pulse oximetry: on room air snw is 98 %. Interpretation: normal. Counseling: I had a detailed discussion with the patient and/or guardian regarding: the historical points, exam findings, and any diagnostic results supporting the discharge/admit diagnosis, the need for outpatient follow up, to return to the emergency department if symptoms worsen or persist or if there are any questions or concerns that arise at home. Special discussion: I discussed in detail with the patient the higher chance of wound infection based on his presenting history. ED course: . Administered Medications: No medications were administered Disposition: 11/06 07:28 Co-signature as Attending Physician, Mike Denson MD. rn Disposition: 11/05/17 17:47 Discharged to Home. Impression: Fall on same level from slipping, tripping and stumbling, Encounter for wound evaluation. - Condition is Stable. - Discharge Instructions: Delayed Wound Closure, Fall Prevention and Home Safety. - Medication Reconciliation Form, Thank You Letter, Antibiotic Education, Prescription Opioid Use form. - Follow up: Private Physician; When: 2 - 3 days; Reason: Recheck today's complaints, Continuance of care, Re-evaluation by your physician. Follow up: Emergency Department; When: As needed; Reason: Worsening of condition. Signatures: Bianka Ritchie RN RN Gabriella Ernst, CASANDRA-C R D MANAGER-CsnMike Galicia MD MD rn Attema, Lee, RN RN la1 Corrections: (The following items were deleted from the chart) 11/05 17:52 17:47 11/05/2017 17:47 Discharged to Home. Impression: Fall on same level from la1 slipping, tripping and stumbling; Encounter for wound evaluation. Condition is Stable. Forms are Medication Reconciliation Form, Thank You Letter, Antibiotic Education, Prescription Opioid Use. Follow up: Private Physician; When: 2 - 3 days; Reason: Recheck today's complaints, Continuance of care, Re-evaluation by your physician. Follow up: Emergency Department; When: As needed; Reason: Worsening of condition. snw
[2017-11-05 18:01] VITALS: BP 120/64; TEMP 98.5; O2SAT 98
== END 2017-11-05 17:52 | disposition home or self-care (01) ==
LOC: ER 16:36
DX: Z48.01 Encounter for change or removal of surgical wound dressing (principal); Z89.511 Acquired absence of right leg below knee; W19.XXXA Unspecified fall, initial encounter; Y93.89 Activity, other specified; Y92.002 Bathroom of unspecified non-institutional (private) residence as the place of occurrence of the external cause; Z88.3 Allergy status to other anti-infective agents; Z79.4 Long term (current) use of insulin; Z79.01 Long term (current) use of anticoagulants; Z79.82 Long term (current) use of aspirin; Z99.2 Dependence on renal dialysis; I12.0 Hypertensive chronic kidney disease with stage 5 chronic kidney disease or end stage renal disease; E11.22 Type 2 diabetes mellitus with diabetic chronic kidney disease; N18.6 End stage renal disease
CPT/HCPCS: 99281

== ENCOUNTER 2017-11-21 07:59 | Day surgery (SDC) | payer BC, OTHER ==
[2017-11-16 14:02] LABS: Absolute Lymphocytes (CBC) 0.6 K/uL (0.7-4.9); Absolute Monocytes 0.6 K/uL (0.1-1.3); Absolute Neutrophil 8.2 K/uL (1.8-8.0); Basophils % 1.3 % (0-1.3); Eosinophils % 6.1 % (0-4.4); Hematocrit 33.1 % (39.6-49.0); Lymphocytes % 6.2 % (15.3-44.8); MCH 27.6 pg (27.0-35.0); MCV 88.9 fL (80-100); MPV 9.2 fL (7.6-11.3); Monocytes % 6.1 % (3.3-12.3); RBC Red Blood Cell Count 3.73 M/uL (4.33-5.43)
[2017-11-16 14:12] LABS: Protime INR 1.12
--- NOTE | 2017-11-16 16:20 | EKG ---
Test Date: 2017-11-16 Test Time: 13:43:39 Machine Egg Washer: MILA MEASUREMENT RESULTS: Intervals: Rate: 86 IA: 132 QRSD: 112 QT: 388 QTc: 464 [place]: P: 63 IA: 132 QRS: -14 T: 207 INTERPRETIVE STATEMENTS: Normal sinus rhythm Possible Left atrial enlargement Incomplete left bundle branch block ST & T wave abnormality, consider inferolateral ischemia Prolonged QT Abnormal ECG Compared to ECG 10/18/2017 16:55:58 Left bundle-branch block now present ST (T wave) deviation now present Possible ischemia now present Prolonged QT interval now present Left ventricular hypertrophy no longer present Intraventricular conduction delay no longer present Electronically Signed On 11-16-17 16:19:00 CDT by Parminder Alvarez
[2017-11-21] MEDS ORDERED: NA CHLORIDE 0.9% 500 ML ONE (08:06)
[2017-11-21] MEDS ORDERED: HEPA 1000U/500MLS 2,000 UNIT/1,000 ML BAG IV ONE (10:13)
[2017-11-21] MEDS ORDERED: MIDAZOLAM HCL 2 MG/2 ML INJ ONE ×2 (10:13→10:32)
[2017-11-21] MEDS ORDERED: HEPARIN 5000 UNIT/ML 1 ML VIAL ONE (10:13)
[2017-11-21] MEDS ORDERED: LIDOCAINE 1% 20 ML MDV ONE (10:13)
[2017-11-21] MEDS ORDERED: FENTANYL CITR 100 MCG/2 ML ONE (10:14)
[2017-11-21] MEDS ORDERED: ATROPINE SULF 1 MG/10 ML SYR IV ONE (10:14)
[2017-11-21] MEDS ORDERED: CLOPIDOGREL 75 MG TABLET ONE (11:17)
[2017-11-21] MEDS ORDERED: ACETAMINOPHEN 325 MG TABLET ONE (13:49)
[2017-11-21 15:01] VITALS: TEMP 97.2
[2017-11-21 15:02] VITALS: O2SAT 97
[2017-11-21 15:03] VITALS: BP 130/74
--- NOTE | 2017-11-22 01:04 | OP ---
Date of Procedure: 11/21/2017 Surgeon: Parminder Alvarez MD [facility] Counselor: Laine Martinez. Procedure: Angiogram and angioplasty and stent of the mid SFA on the left. Indication: Peripheral arterial disease, gangrene in the left foot, and documented SFA stenosis by p revious angiography. Procedure In Detail: Mr. Prasad was prepped and draped in the routine sterile fashion. He was kim t to the cheesemaking laborer as an outpatient and given 2 mg of Versed for IV sedation. A 6-Turkmen sheath was i ntroduced in the right common femoral artery. Angio-Seal was used to close the case. A Glidewire wa s used along with a RAPP catheter up and over the left common iliac. The Glidewire was used to cross the lesion successfully. Following that an [place] balloon 4 x 40 was used to pre-dilate the lesion. Following that we used a balloon expandable stent 6 x 40, at 14 atmosphere with 0% residual. The p atient tolerated the procedure well. Complications: There were no complications. Estimated Blood Loss: 5 cc. Conscious Sedation: 30 minutes. Final Diagnosis: Successful angioplasty and stent in the mid superficial femoral artery. County Or City Auditor: MD FARNAZ Mccloud/DONNA Voice ID: [id number] Report ID: [id number]
== END 2017-11-21 15:05 | disposition home or self-care (01) ==
LOC: CCL 07:59
PROC: 047L34Z Dilation of Left Femoral Artery with Drug-eluting Intraluminal Device, Percutaneous Approach (ICD-10-PCS; principal; 2017-11-21)
DX: I70.262 Atherosclerosis of native arteries of extremities with gangrene, left leg (principal); I42.8 Other cardiomyopathies; I25.5 Ischemic cardiomyopathy; I12.0 Hypertensive chronic kidney disease with stage 5 chronic kidney disease or end stage renal disease; E11.22 Type 2 diabetes mellitus with diabetic chronic kidney disease; N18.6 End stage renal disease; E78.5 Hyperlipidemia, unspecified; E78.6 Lipoprotein deficiency; Z95.5 Presence of coronary angioplasty implant and graft; Z88.0 Allergy status to penicillin; Z82.49 Family history of ischemic heart disease and other diseases of the circulatory system
CPT/HCPCS: 36200; 36415; 37226; 80048; 82962; 85025; 85610; 85730; 93005; C1725; C1760; C1769; C1887; C1893; J1644; J2250; J3010

== ENCOUNTER 2017-12-11 11:10 | Emergency (ER) | payer BC, OTHER ==
--- NOTE | 2017-12-11 14:07 | EDPHYS ---
Physician Documentation [facility] Name: Justus Prasad Age: 52 yrs Sex: Male : 1965 Arrival Date: 12/11/2017 Time: 11:16 Bed 30 Private MD: Inocencio Mclaughlin ED Physician James Toure HPI: 12/11 14:02 This 52 yrs old Male presents to ER via Wheelchair with complaints of BLEEDING morena FROM AMPUTATION. 14:02 The patient presents with an injury, pain. The complaints affect the lateral aspect of morena right calf, right calf, medial aspect of right calf and right santoyo. Context: The problem was sustained at home. Onset: The symptoms/episode began/occurred just prior to arrival, this morning. Modifying factors: The symptoms are alleviated by nothing. the symptoms are aggravated by nothing. Associated signs and symptoms: Pertinent positives: weakness, Pertinent negatives fever, nausea, swelling, vomiting. Historical: - Allergies: 11:29 Clindamycin; hb - Home Meds: 11:29 alprazolam 0.25 mg Oral tab as needed [Active]; aspirin 81 mg Oral TbEC 1 tab once hb daily [Active]; Insulin: Novolin 70/30 sliding scale Sub-Q before meals [Active]; lisinopril 5 mg Oral tab 1 tab on Tues, Thurs, Sat and Sun only [Active]; Lyrica 50 mg Oral 2 times per day [Active]; metoprolol tartrate 25 mg Oral tab 1 tab 2 times per day [Active]; Nitroglycerin Oral as needed [Active]; Plavix 75 mg Oral tab 1 tab once daily [Active]; Renvela 800 mg Oral tab 2 tabs 3 times per day [Active]; - PMHx: 11:29 cardiac stents; ESRD; DIALYSIS MWF; Hypertension; Diabetes - IDDM; Myocardial hb infarction; CHF; - PSHx: 11:29 right BKA; R chest wall dialysis shunt; hb - Immunization history:: Adult Immunizations up to date. - Social history:: Smoking status: Patient/guardian denies using tobacco. - Ebola Screening: : No symptoms or risks identified at this time. - Family history:: not pertinent. ROS: 14:02 Constitutional: Negative for fever, chills, and weight loss, Eyes: Negative for injury, morena pain, redness, and discharge, ENT: Negative for injury, pain, and discharge, Neck: Negative for injury, pain, and swelling, Cardiovascular: Negative for chest pain, palpitations, and edema, Respiratory: Negative for shortness of breath, cough, wheezing, and pleuritic chest pain, Abdomen/GI: Negative for abdominal pain, nausea, vomiting, diarrhea, and constipation, Back: Negative for injury and pain, : Negative for injury, bleeding, discharge, and swelling, Skin: Negative for injury, rash, and discoloration, Neuro: Negative for headache, weakness, numbness, tingling, and seizure, Psych: Negative for depression, anxiety, suicide ideation, homicidal ideation, and hallucinations, Allergy/Immunology: Negative for hives, rash, and allergies, Endocrine: Negative for neck swelling, polydipsia, polyuria, polyphagia, and marked weight changes, Hematologic/Lymphatic: Negative for swollen nodes, abnormal bleeding, and unusual bruising. 14:02 MS/extremity: Positive for decreased range of motion, pain, tenderness, of the lateral aspect of right calf, right calf, medial aspect of right calf and right santoyo. Exam: 14:02 Constitutional: This is a well developed, well nourished patient who is awake, alert, morena and in no acute distress. Head/Face: Normocephalic, atraumatic. Eyes: Pupils equal round and reactive to light, extra-ocular motions intact. Lids and lashes normal. Conjunctiva and sclera are non-icteric and not injected. Cornea within normal limits. Periorbital areas with no swelling, redness, or edema. ENT: Nares patent. No nasal discharge, no septal abnormalities noted. Tympanic membranes are normal and external auditory canals are clear. Oropharynx with no redness, swelling, or masses, exudates, or evidence of obstruction, uvula midline. Mucous membranes moist. Neck: Trachea midline, no thyromegaly or masses palpated, and no cervical lymphadenopathy. Supple, full range of motion without nuchal rigidity, or vertebral point tenderness. No Meningismus. Chest/axilla: Normal chest wall appearance and motion. Nontender with no deformity. No lesions are appreciated. Cardiovascular: Regular rate and rhythm with a normal S1 and S2. No gallops, murmurs, or rubs. Normal PMI, no JVD. No pulse deficits. Respiratory: Lungs have equal breath sounds bilaterally, clear to auscultation and percussion. No rales, rhonchi or wheezes noted. No increased work of breathing, no retractions or nasal flaring. Abdomen/GI: Soft, non-tender, with normal bowel sounds. No distension or tympany. No guarding or rebound. No evidence of tenderness throughout. Back: No spinal tenderness. No costovertebral tenderness. Full range of motion. Male : Normal genitalia with no discharge or lesions. Skin: Warm, dry with normal turgor. Normal color with no rashes, no lesions, and no evidence of cellulitis. Neuro: Awake and alert, GCS 15, oriented to person, place, time, and situation. Cranial nerves II-XII grossly intact. Motor strength 5/5 in all extremities. Sensory grossly intact. Cerebellar exam normal. Normal gait. Psych: Awake, alert, with orientation to person, place and time. Behavior, mood, and affect are within normal limits. 14:02 Musculoskeletal/extremity: Circulation is intact in all extremities. Sensation intact. Compartment Syndrome exam of affected extremity: is normal. DVT Exam: no swelling, no tenderness, negative Homans' sign noted on exam, no appreciated bluish discoloration, no erythema, no increased warmth, pain. Vital Signs: 11:27 BP 121 / 91; Pulse 52; Resp 20; Temp 97.1; Pulse Ox 97% on R/A; Pain 10/10; hb 13:10 BP 126 / 88; Pulse 60; Resp 18; Pulse Ox 97% on R/A; Pain 10/10; sg MDM: 13:13 Patient medically screened. [facility] 14:08 Data reviewed: vital signs, nurses notes. [facility] 12/11 14:01 Order name: Wound Care: wet to dry; Complete Time: 14:10 [facility] Administered Medications: 14:25 Drug: Bactrim (160 mg-800 mg (DS) 1 tablet Route: PO; sg 14:30 Follow up: Response: No adverse reaction 14:25 Drug: Doxycycline 200 mg Route: PO; sg 14:30 Follow up: Response: No adverse reaction 14:25 Drug: [place] (7.5 mg-325 mg) 1 tabs Route: PO; sg 14:40 Follow up: Response: No adverse reaction Disposition: 12/11/17 14:06 Discharged to Home. Impression: Infection of amputation stump - mild, End stage renal disease, Type 1 diabetes mellitus. - Condition is Stable. - Discharge Instructions: Wound Check, Wound Infection, End-Stage Kidney Disease, Wound Infection, [id number], Wound Care, [id number], Wound Packing. - Prescriptions for Tylenol- Codeine #3 300-30 mg Oral Tablet - take 2 tablets by ORAL route every 6 hours As needed; 24 tablet. Doxycycline Hyclate 100 mg Oral Tablet - take 1 tablet by ORAL route every 12 hours; 20 tablet. Bactrim DS 800- 160 mg Oral Tablet - take 1 tablet by ORAL route every 12 hours for 10 days; 20 tablet. - Medication Reconciliation Form, Thank You Letter, Antibiotic Education, Prescription Opioid Use form. - Follow up: Inocencio Mclaughlin MD; When: Tomorrow; Reason: Recheck today's complaints, Continuance of care, Re-evaluation by your physician. - Problem is new. - Symptoms have improved. Signatures: Elie Hall RN RN sg James Toure MD MD cha Baxter, Heather RN RN Corrections: (The following items were deleted from the chart) 14:34 14:06 12/11/2017 14:06 Discharged to Home. Impression: Infection of amputation stump - sg mild; End stage renal disease; Type 1 diabetes mellitus. Condition is Stable. Forms are Medication Reconciliation Form, Thank You Letter, Antibiotic Education, Prescription Opioid Use. Follow up: Inocencio Mclaughlin; When: Tomorrow; Reason: Recheck today's complaints, Continuance of care, Re-evaluation by your physician. Problem is new. Symptoms have improved. morena
--- NOTE | 2017-12-11 14:07 | ER ---
Nurse's Notes [facility] Name: Justus Prasad Age: 52 yrs Sex: Male : 1965 Arrival Date: 12/11/2017 Time: 11:16 Bed 30 Private MD: Inocencio Mclaughlin Diagnosis: Infection of amputation stump-mild;End stage renal disease;Type 1 diabetes mellitus Presentation: 12/11 11:26 Presenting complaint: Patient states: Right BKA bleeding after wound care at home hb today. Instructed by Dr. Mclaughlin to come to ED. Transition of care: patient was not received from another setting of care. Onset of symptoms was December 11, 2017. Risk Assessment: Do you want to hurt yourself or someone else? Patient reports no desire to harm self or others. Care prior to arrival: None. 11:26 Method Of Arrival: Wheelchair hb 11:26 Acuity: KUNAL 3 hb 13:10 Initial Sepsis Screen: Does the patient meet any 2 criteria? No. Patient's initial sg sepsis screen is negative. Does the patient have a suspected source of infection? No. Patient's initial sepsis screen is negative. Triage Assessment: 13:10 General: Appears in no apparent distress. Behavior is calm, cooperative, appropriate sg for age. Historical: - Allergies: 11:29 Clindamycin; hb - Home Meds: 11:29 alprazolam 0.25 mg Oral tab as needed [Active]; aspirin 81 mg Oral TbEC 1 tab once hb daily [Active]; Insulin: Novolin 70/30 sliding scale Sub-Q before meals [Active]; lisinopril 5 mg Oral tab 1 tab on Tues, Thurs, Sat and Sun only [Active]; Lyrica 50 mg Oral 2 times per day [Active]; metoprolol tartrate 25 mg Oral tab 1 tab 2 times per day [Active]; Nitroglycerin Oral as needed [Active]; Plavix 75 mg Oral tab 1 tab once daily [Active]; Renvela 800 mg Oral tab 2 tabs 3 times per day [Active]; - PMHx: 11:29 cardiac stents; ESRD; DIALYSIS MWF; Hypertension; Diabetes - IDDM; Myocardial hb infarction; CHF; - PSHx: 11:29 right BKA; R chest wall dialysis shunt; hb - Immunization history:: Adult Immunizations up to date. - Social history:: Smoking status: Patient/guardian denies using tobacco. - Ebola Screening: : No symptoms or risks identified at this time. - Family history:: not pertinent. Screenin:10 Abuse screen: Denies threats or abuse. Denies injuries from another. Nutritional sg screening: No deficits noted. Tuberculosis screening: No symptoms or risk factors identified. Never had TB. Fall Risk None identified. Assessment: 13:10 General: Appears in no apparent distress. uncomfortable, well groomed, well developed, sg well nourished, Behavior is calm, cooperative, appropriate for age. Pain: Complains of pain in RLE Quality of pain is described as aching, throbbing. Neuro: No deficits noted. Cardiovascular: Heart tones S1 S2 present Capillary refill is brisk in bilateral fingers Patient's skin is warm and dry. Chest pain is denied. Respiratory: Airway is patent Respiratory effort is even, unlabored, Respiratory pattern is regular, symmetrical, Breath sounds are clear. GI: No signs and/or symptoms were reported involving the gastrointestinal system. : No signs and/or symptoms were reported regarding the genitourinary system. EENT: No signs and/or symptoms were reported regarding the EENT system. Derm: Skin is pink, warm \T\ dry. Musculoskeletal: Amputation of Right BKA, purulent drainage noted, no bleeding noted at this time. Vital Signs: 11:27 BP 121 / 91; Pulse 52; Resp 20; Temp 97.1; Pulse Ox 97% on R/A; Pain 10/10; hb 13:10 BP 126 / 88; Pulse 60; Resp 18; Pulse Ox 97% on R/A; Pain 10/10; sg ED Course: 11:16 Patient arrived in ED. sb2 11:17 Inocencio Mclaughlin MD is Private Physician. sb2 11:27 Triage completed. hb 11:27 Arm band placed on right wrist. hb 13:08 Elie Hall, PANDA is Primary Nurse. sg 13:10 Patient has correct armband on for positive identification. Bed in low position. Call sg light in reach. Pulse ox on. NIBP on. Verbal reassurance given. Head of bed elevated. Elevated right leg. 13:13 James Toure MD is Attending Physician. morena 14:04 Inocencio Mclaughlin MD is Referral Physician. morena 14:30 No provider procedures requiring assistance completed. Patient did not have IV access sg during this emergency room visit. Administered Medications: 14:25 Drug: Bactrim (160 mg-800 mg (DS) 1 tablet Route: PO; sg 14:30 Follow up: Response: No adverse reaction sg 14:25 Drug: Doxycycline 200 mg Route: PO; sg 14:30 Follow up: Response: No adverse reaction sg 14:25 Drug: [place] (7.5 mg-325 mg) 1 tabs Route: PO; sg 14:40 Follow up: Response: No adverse reaction sg Outcome: 14:06 Discharge ordered by MD. berg 14:30 Discharged to home via wheelchair, with family. sg 14:30 Condition: good 14:30 Discharge instructions given to patient, Instructed on discharge instructions, follow up and referral plans. no drinking with medication, no driving heavy equipment, medication usage, wound care, Demonstrated understanding of instructions, follow-up care, medications, wound care, Prescriptions given X 3. 14:34 Patient left the ED. sg Signatures: Elie Hall RN RN sg Anderson, Corey, MD MD cha Baxter, Heather, RN RN hb Billeau, Sheri sb2
[2017-12-11] MEDS ORDERED: SMZ./TMP. 800/160 MG TABLET ONE (14:16)
[2017-12-11] MEDS ORDERED: HYDROCODONE/APAP 7.5/325 MG TAB ONE (14:16)
[2017-12-11] MEDS ORDERED: DOXYCYCLINE 100 MG CAP PO ONE (14:17)
[2017-12-11 15:51] VITALS: BP 121/91; TEMP 97.1; O2SAT 97
== END 2017-12-11 14:34 | disposition home or self-care (01) ==
LOC: ER 11:10
DX: T87.43 Infection of amputation stump, right lower extremity (principal); E10.22 Type 1 diabetes mellitus with diabetic chronic kidney disease; I12.0 Hypertensive chronic kidney disease with stage 5 chronic kidney disease or end stage renal disease; N18.6 End stage renal disease; Z79.4 Long term (current) use of insulin; Z79.01 Long term (current) use of anticoagulants; Z88.3 Allergy status to other anti-infective agents; Z99.2 Dependence on renal dialysis; Z95.818 Presence of other cardiac implants and grafts
CPT/HCPCS: 99283

== ENCOUNTER 2017-12-26 10:00 | Inpatient (IN) | payer BC, OTHER ==
[2017-12-26 10:43] LABS: Absolute Lymphocytes (CBC) 0.4 K/uL (0.7-4.9); Absolute Monocytes 1.2 K/uL (0.1-1.3); Absolute Neutrophil 22.1 K/uL (1.8-8.0); Basophils % 0.2 % (0-1.3); Eosinophils % 0.1 % (0-4.4); Lymphocytes % 1.8 % (15.3-44.8); MCH 27.4 pg (27.0-35.0); MCV 86.8 fL (80-100); MPV 9.8 fL (7.6-11.3); RBC Red Blood Cell Count 3.22 M/uL (4.33-5.43)
[2017-12-26 10:50] LABS: Protime INR 1.94
[2017-12-26 11:14] LABS: Blood Morphology Comment NOT SEEN (NOT SEEN); Platelet Estimate ADEQ
--- NOTE | 2017-12-26 11:15 | RAD REPORT ---
EXAM DESCRIPTION: RAD - Chest Single View - 12/26/2017 10:54 am CLINICAL HISTORY: Cough, shortness of breath, history of CHF and cardiac stents, hypertension COMPARISON: October 19 TECHNIQUE: AP portable chest image was obtained 1048 hours . FINDINGS: No peripheral mass or consolidation. Vague nodular density seen in the right midlung field in October is not evident on the current examination. The patient does have a baseline chronic interst itial pattern. Mild chronic cardiomegaly is present. Trachea is midline. Vasculature is mildly promin ent. Dialysis catheter is in place. No measurable pleural effusion and no pneumothorax. No gross bony abnormality seen. No acute aortic findings suspected. IMPRESSION: Patient has chronic heart, vasculature and lung parenchymal prominence. This chronic pat tern could mask earliest stages of CHF or volume overload. No significant failure or pulmonary edema identified. No new mass or consolidation. The focal nodular density right midlung field detailed in October is not identifiable on the current study.
--- NOTE | 2017-12-26 11:29 | ER ---
Nurse's Notes [facility] Name: Justus Prasad Age: 52 yrs Sex: Male : 1965 Arrival Date: 12/26/2017 Time: 10:03 Bed 6 Private MD: Gino Alvarado H Diagnosis: Cellulitis and acute lymphangitis of other parts of limb;Type 1 diabetes mellitus;Nausea and vomiting;End stage renal disease;Other peripheral vascular diseases;Elevated white blood cell count;Anemia, unspecified;Gangrene, not elsewhere classified;Osteomyelitis;Cholelithiasis;Cholecystitis-chronic Presentation: 12/26 10:12 Presenting complaint: Patient states: sent from wound healing for evaluation of fatigue ss and nausea x2 days. Pt reports he is being seen in wound healing for infection to L foot and is scheduled to have L toes 1,3 and 4 amputated soon. Transition of care: patient was not received from another setting of care. Onset of symptoms was December 24, 2017. Risk Assessment: Do you want to hurt yourself or someone else? Patient reports no desire to harm self or others. Initial Sepsis Screen: Does the patient meet any 2 criteria? RR > 20 per min. Does the patient have a suspected source of infection? Yes: Skin breakdown/wound. Care prior to arrival: sent from wound healing. Wounds dressed. 10:12 Method Of Arrival: Wheelchair ss 10:12 Acuity: KUNAL 3 ss Historical: - Allergies: 10:19 Clindamycin; ss - PMHx: 10:19 cardiac stents; CHF; Diabetes - IDDM; DIALYSIS MWF; ESRD; Hypertension; Myocardial ss infarction; gangrenous toes L 1,3,4; - PSHx: 10:19 right BKA; R chest wall dialysis shunt; ss - Immunization history:: Adult Immunizations up to date. - Social history:: Smoking status: Patient/guardian denies using tobacco. - Ebola Screening: : Patient denies exposure to infectious person Patient denies travel to an Ebola-affected area in the 21 days before illness onset. - Family history:: not pertinent. Screenin:35 Abuse screen: Denies threats or abuse. Denies injuries from another. Nutritional iw screening: No deficits noted. Tuberculosis screening: No symptoms or risk factors identified. Fall Risk IV access (20 points). Assessment: 10:31 General: Appears in no apparent distress. Behavior is calm, cooperative. General: iw Reports feeling ill for fatigue for Denies fever. Pain: Complains of pain in left foot. Neuro: Level of Consciousness is awake, alert, obeys commands, Oriented to person, place, time, situation, Moves all extremities. Cardiovascular: Patient's skin is warm and dry. Respiratory: Reports shortness of breath cough that is Airway is patent Respiratory effort is even, unlabored, Respiratory pattern is regular, symmetrical. GI: Abdomen is flat, non-distended. GI: Reports diarrhea, nausea, dry heaving. Derm: Skin is pink, warm \T\ dry. normal. Musculoskeletal: right BKA. 10:34 Musculoskeletal: Injury Description: wound to left foot that was already dressed and iw cleaned by wound healing just FRONT OFFICE DIRECTOR. 11:43 Reassessment: Dr. Toure notified of critical troponin of 3.49. ss 13:30 Reassessment: Patient appears in no apparent distress at this time. Patient and/or sg family updated on plan of care and expected duration. Pain level reassessed. Patient is alert, oriented x 3, equal unlabored respirations, skin warm/dry/pink. Patient states feeling better. 15:00 Reassessment: pt personal wheelchair taken to ICU bed 1. sg Vital Signs: 10:19 BP 143 / 90; Pulse 93; Resp 21; Pulse Ox 100% on R/A; Weight 62.6 kg; Pain 8/10; ss 10:37 Temp 98.4(O); iw 14:10 BP 136 / 71; Pulse 84 MON; Resp 19 S; Temp 98.4; Pulse Ox 100% on R/A; Pain 0/10; sg ED Course: 10:03 Patient arrived in ED. rg4 10:03 Gino Alvarado DO is Private Physician. rg4 10:10 James Toure MD is Attending Physician. morena 10:12 Dominique Akhtar, PANDA is Primary Nurse. iw 10:17 Triage completed. ss 10:19 Arm band placed on right wrist. ss 10:30 Initial lab(s) drawn, by me, sent to lab. First set of blood cultures drawn by me. sg Inserted saline lock: 22 gauge in right forearm, using aseptic technique. Blood collected. 10:35 Patient has correct armband on for positive identification. Bed in low position. Call sg light in reach. Side rails up X2. environmental monitoring technician on. Pulse ox on. NIBP on. Warm blanket given. Head of bed elevated. 10:35 No provider procedures requiring assistance completed. Patient admitted, IV remains in sg place. intact, No redness/swelling at site. 10:54 XRAY Chest (1 view) In Process Unspecified. EDSD 11:26 Bhargav Pradhan MD is Hospitalizing Provider. [facility] 12:07 X-ray completed. Portable x-ray completed in exam room. Patient tolerated procedure jb2 well. Administered Medications: 11:40 Drug: Zofran 4 mg Route: IVP; Site: right forearm; sg 12:30 Follow up: Response: No adverse reaction; Nausea is decreased sg 11:50 Drug: morphine 2 mg Route: IVP; Site: right forearm; sg 12:30 Follow up: Response: No adverse reaction; Pain is decreased 11:57 Drug: Zosyn 3.375 grams Route: IVPB; Infused Over: 60 mins; Site: right forearm; sg 13:11 Follow up: IV Status: Completed infusion 13:12 Drug: vancoMYCIN 1 grams Route: IVPB; Infused Over: 2 hrs; Site: right antecubital; Point of Care Testing: Blood Glucose: 10:30 Blood Glucose: 254 mg/dL; Ranges: Outcome: 11:28 Decision to Hospitalize by Provider. [facility] 15:20 Admitted to ICU accompanied by nurse, via stretcher, room 1, with chart, Report called sg to report given to Nina MOSQUEDA 15:20 Condition: stable 15:20 Instructed on the need for admit, safety practices, Demonstrated understanding of instructions. 15:23 Patient left the ED. Signatures: Dispatcher [employer] EDMS Elie Hall RN RN sg Anderson, Corey, MD MD cha Buechter, Jesse jb2 Dominique Akhtar RN RN Christina Thornton RN RN ss Garcia, Rubi rg4 Kade Louise MD MD
[2017-12-26 11:35] LABS: ALT/SGPT 1431 U/L (12-78); AST/SGOT 1277 U/L (15-37); Albumin 2.6 g/dL (3.4-5.0); Alkaline Phosphatase 244 U/L (45-117); BUN Blood Urea Nitrogen 53 mg/dL (7-18); Bicarbonate 21 mmol/L (21-32); Bilirubin Direct 0.9 mg/dL (0-0.2); Bilirubin Total 1.8 mg/dL (0.2-1.0); CKMB Creatine Kinase MB 2.4 ng/mL (0.3-3.6); Creatine Phosphokinase 90 U/L (39-308); Glucose Level 233 mg/dL (74-106); Lipase 77 U/L (73-393); Magnesium 2.2 mg/dL (1.8-2.4); Potassium 5.1 mmol/L (3.5-5.1); Protein, Total 8.1 g/dL (6.4-8.2); Sodium Level 130 mmol/L (136-145)
[2017-12-26] MEDS ORDERED: MORPHINE 4 MG/ML SYR ONE (11:35)
[2017-12-26] MEDS ORDERED: ONDANSETRON 4 MG/2 ML VIAL ONE (11:36)
[2017-12-26] MEDS ORDERED: PIPER/TAZO/NS 3.375gm 3.375 GM/100 ML BAG ONE (11:36)
[2017-12-26] MEDS ORDERED: D50W 25 GM/50 ML SYRINGE IV PRN (11:37)
[2017-12-26] MEDS ORDERED: GLUCAGON 1 MG/VIAL IM PRN (11:37)
[2017-12-26 11:44] LABS: NT PRO-BNP > 35000 pg/mL (<125)
[2017-12-26] MEDS ORDERED: VANCOMYCIN/NS 1 gm 1 GM/250 ML BAG IV ONE (12:00)
[2017-12-26] MEDS ORDERED: MORPHINE 4 MG/ML SYR IV PRN (12:06)
[2017-12-26] MEDS ORDERED: ONDANSETRON 4 MG/2 ML VIAL IV PRN (12:06)
[2017-12-26] MEDS ORDERED: ACETAMINOPHEN 500 MG TAB PO PRN (12:06)
--- NOTE | 2017-12-26 12:32 | RAD REPORT ---
EXAM DESCRIPTION: US - Abdomen Exam Limited - 12/26/2017 12:20 pm CLINICAL HISTORY: ABD PAIN COMPARISON: Abdomen Exam Complete dated 04/12/2016; RP EXAM COMPLETE dated 04/16/2015 FINDINGS: The gallbladder demonstrates extensive cholelithiasis. Gallbladder wall is thickened to 9 mm. The common bile duct is normal measuring 1-2 mm. The liver demonstrates no findings of intrahepatic biliary dilatation. IMPRESSION: Extensive cholelithiasis is noted. Thickened gallbladder wall may indicate chronic chris cystitis.
--- NOTE | 2017-12-26 12:38 | RAD REPORT ---
EXAM DESCRIPTION: RAD - Foot Left 2 View - 12/26/2017 12:14 pm CLINICAL HISTORY: PAIN Swelling COMPARISON: Foot Left 3 View dated 01/01/2013; Chest Single View dated 12/26/2017 FINDINGS: Soft tissue gas is seen along the dorsum of the forefoot compatible with a gas-forming inf ection. Heavy vascular calcification noted. Significant soft tissue swelling is seen. Subtle deminera lization of the third and fourth metatarsal heads noted, suggesting osteomyelitis. MR imaging of the foot would be of value for further evaluation.
[2017-12-26] MEDS ORDERED: VANCOMYCIN 1GM/D5W 200 ML IV SCH (13:00)
[2017-12-26] MEDS ORDERED: CEFEPIME 1 GM/VIAL IV SCH (13:00)
--- NOTE | 2017-12-26 15:24 | EDPHYS ---
Physician Documentation [facility] Name: Justus Prasad Age: 52 yrs Sex: Male : 1965 Arrival Date: 12/26/2017 Time: 10:03 Bed 6 Private MD: Gino Alvarado H ED Physician James Toure HPI: 12/26 11:23 This 52 yrs old Male presents to ER via Wheelchair with complaints of Nausea, morena Weakness. 11:23 The patient presents to the emergency department with nausea, vomiting. Onset: The morena symptoms/episode began/occurred 2 day(s) ago. Possible causes: infected left foot, necrotic toes. The symptoms are aggravated by nothing. The symptoms are alleviated by nothing. Associated signs and symptoms: Pertinent positives: fever, nausea, vomiting. Severity of symptoms: At their worst the symptoms were mild moderate in the emergency department the symptoms are unchanged. The patient has experienced similar episodes in the past, a few times. Historical: - Allergies: 10:19 Clindamycin; ss - PMHx: 10:19 cardiac stents; CHF; Diabetes - IDDM; DIALYSIS MWF; ESRD; Hypertension; Myocardial ss infarction; gangrenous toes L 1,3,4; - PSHx: 10:19 right BKA; R chest wall dialysis shunt; ss - Immunization history:: Adult Immunizations up to date. - Social history:: Smoking status: Patient/guardian denies using tobacco. - Ebola Screening: : Patient denies exposure to infectious person Patient denies travel to an Ebola-affected area in the 21 days before illness onset. - Family history:: not pertinent. ROS: 11:23 Constitutional: Negative for fever, chills, and weight loss, Eyes: Negative for injury, morena pain, redness, and discharge, ENT: Negative for injury, pain, and discharge, Neck: Negative for injury, pain, and swelling, Cardiovascular: Negative for chest pain, palpitations, and edema, Respiratory: Negative for shortness of breath, cough, wheezing, and pleuritic chest pain, Back: Negative for injury and pain, : Negative for injury, bleeding, discharge, and swelling, Skin: Negative for injury, rash, and discoloration, Neuro: Negative for headache, weakness, numbness, tingling, and seizure, Psych: Negative for depression, anxiety, suicide ideation, homicidal ideation, and hallucinations, Allergy/Immunology: Negative for hives, rash, and allergies, Endocrine: Negative for neck swelling, polydipsia, polyuria, polyphagia, and marked weight changes, Hematologic/Lymphatic: Negative for swollen nodes, abnormal bleeding, and unusual bruising. 11:23 Abdomen/GI: Positive for nausea and vomiting. 11:23 MS/extremity: Positive for erythema, pain, swelling, tenderness, warmth, of the lateral aspect of left toes, dorsum of left foot, left third toe, left fourth toe and medial aspect of left toes. Exam: 11:23 Constitutional: This is a well developed, well nourished patient who is awake, alert, morena and in no acute distress. Head/Face: Normocephalic, atraumatic. Eyes: Pupils equal round and reactive to light, extra-ocular motions intact. Lids and lashes normal. Conjunctiva and sclera are non-icteric and not injected. Cornea within normal limits. Periorbital areas with no swelling, redness, or edema. ENT: Nares patent. No nasal discharge, no septal abnormalities noted. Tympanic membranes are normal and external auditory canals are clear. Oropharynx with no redness, swelling, or masses, exudates, or evidence of obstruction, uvula midline. Mucous membranes moist. Neck: Trachea midline, no thyromegaly or masses palpated, and no cervical lymphadenopathy. Supple, full range of motion without nuchal rigidity, or vertebral point tenderness. No Meningismus. Chest/axilla: Normal chest wall appearance and motion. Nontender with no deformity. No lesions are appreciated. Cardiovascular: Regular rate and rhythm with a normal S1 and S2. No gallops, murmurs, or rubs. Normal PMI, no JVD. No pulse deficits. Respiratory: Lungs have equal breath sounds bilaterally, clear to auscultation and percussion. No rales, rhonchi or wheezes noted. No increased work of breathing, no retractions or nasal flaring. Abdomen/GI: Soft, non-tender, with normal bowel sounds. No distension or tympany. No guarding or rebound. No evidence of tenderness throughout. Back: No spinal tenderness. No costovertebral tenderness. Full range of motion. Male : Normal genitalia with no discharge or lesions. Neuro: Awake and alert, GCS 15, oriented to person, place, time, and situation. Cranial nerves II-XII grossly intact. Motor strength 5/5 in all extremities. Sensory grossly intact. Cerebellar exam normal. Normal gait. Psych: Awake, alert, with orientation to person, place and time. Behavior, mood, and affect are within normal limits. 11:23 Skin: Appearance: Color: erythematous, Temperature: hot, Moisture: normal moisture, petechiae, not noted, ecchymosis, not noted, diaphoresis is not appreciated, cellulitis, that is mild, that is moderate, induration, that is mild is noted. Vital Signs: 10:19 BP 143 / 90; Pulse 93; Resp 21; Pulse Ox 100% on R/A; Weight 62.6 kg; Pain 8/10; ss 10:37 Temp 98.4(O); iw 14:10 BP 136 / 71; Pulse 84 MON; Resp 19 S; Temp 98.4; Pulse Ox 100% on R/A; Pain 0/10; sg MDM: 10:10 [facility] 11:44 Data reviewed: vital signs, nurses notes, EMS record, lab test result(s), EKG, [facility] radiologic studies, plain films, ultrasound. 12/26 10:25 Order name: Basic Metabolic Panel; Complete Time: 12:49 [facility] 12/26 10:25 Order name: CBC with Diff; Complete Time: 12:49 [facility] 12/26 10:25 Order name: Ckmb; Complete Time: 12:49 [facility] 12/26 10:25 Order name: CPK; Complete Time: 12:49 [facility] 12/26 10:25 Order name: LFT's; Complete Time: 12:49 [facility] 12/26 10:25 Order name: Magnesium; Complete Time: 12:49 [facility] 12/26 10:25 Order name: NT PRO-BNP; Complete Time: 12:49 [facility] 12/26 10:25 Order name: PT-INR; Complete Time: 12:49 [facility] 12/26 10:25 Order name: Ptt, Activated; Complete Time: 12:49 [facility] 12/26 10:25 Order name: Troponin (emerg Dept Use Only); Complete Time: 12:49 [facility] 12/26 10:25 Order name: Lipase; Complete Time: 12:49 [facility] 12/26 10:26 Order name: Type And Screen [facility] 12/26 10:47 Order name: Manual Differential; Complete Time: 12:49 [facility] 12/26 11:23 Order name: Blood Culture Adult (2) [facility] 12/26 10:25 Order name: XRAY Chest (1 view); Complete Time: 12:49 [facility] 12/26 10:25 Order name: EKG; Complete Time: 10:26 [facility] 12/26 11:23 Order name: Foot Left 2 View XRAY [facility] 12/26 11:23 Order name: Lactate [facility] 12/26 11:23 Order name: Procalcitonin; Complete Time: 14:57 [facility] 12/26 11:23 Order name: Type And Screen [facility] 12/26 11:23 Order name: Sed Rate; Complete Time: 14:57 [facility] 12/26 11:44 Order name: US Abdomen Limited [facility] 12/26 11:46 Order name: Echo w/ Doppler [facility] 12/26 12:33 Order name: US; Complete Time: 12:49 [facility] 12/26 12:38 Order name: RAD; Complete Time: 12:49 [facility] 12/26 10:25 Order name: Cardiac monitoring; Complete Time: 10:34 [facility] 12/26 10:25 Order name: EKG - Nurse/Tech; Complete Time: 12:13 [facility] 12/26 10:25 Order name: IV Saline Lock; Complete Time: 10:34 [facility] 12/26 10:25 Order name: Labs collected and sent; Complete Time: 10:34 [facility] 12/26 10:25 Order name: O2 Per Protocol; Complete Time: 10:34 [facility] 12/26 10:25 Order name: O2 Sat Monitoring; Complete Time: 10:35 [facility] 12/26 11:35 Order name: CONS Physician Consult [facility] 12/26 11:35 Order name: CONS Physician Consult [facility] 12/26 11:37 Order name: NPO EDKS Administered Medications: 11:40 Drug: Zofran 4 mg Route: IVP; Site: right forearm; sg 12:30 Follow up: Response: No adverse reaction; Nausea is decreased sg 11:50 Drug: morphine 2 mg Route: IVP; Site: right forearm; sg 12:30 Follow up: Response: No adverse reaction; Pain is decreased sg 11:57 Drug: Zosyn 3.375 grams Route: IVPB; Infused Over: 60 mins; Site: right forearm; sg 13:11 Follow up: IV Status: Completed infusion ss 13:12 Drug: vancoMYCIN 1 grams Route: IVPB; Infused Over: 2 hrs; Site: right antecubital; Point of Care Testing: Blood Glucose: 10:30 Blood Glucose: 254 mg/dL; iw Ranges: Critical Glucose Levels:Adult <50 mg/dl or >400 mg/dl <40 mg/dl or >180 mg/dl Disposition: 12/26/17 11:28 Hospitalization ordered by Bhargav Pradhan for Inpatient Admission. Preliminary diagnosis are Cellulitis and acute lymphangitis of other parts of limb, Type 1 diabetes mellitus, Nausea and vomiting, End stage renal disease, Other peripheral vascular diseases, Elevated white blood cell count, Anemia, unspecified, Gangrene, not elsewhere classified, Osteomyelitis, Cholelithiasis, Cholecystitis - chronic. - Bed requested for Intensive Care Unit. - Status is Inpatient Admission. gs - Condition is Serious. - Problem is new. - Symptoms have improved. UTI on Admission? No Signatures: Dispatcher [employer] EDMS Crissy Reeder Diana, RN RN dw Gay, Steven, RN RN sg Anderson, Corey, MD MD cha Smirch, Shelby, RN RN ss Starr, Gregory, MD MD Corrections: (The following items were deleted from the chart) 11:38 11:28 Hospitalization Ordered by Bhargav Pradhan MD for Inpatient Admission. Preliminary [facility] diagnosis is Cellulitis and acute lymphangitis of other parts of limb; Type 1 diabetes mellitus; Nausea and vomiting; End stage renal disease; Other peripheral vascular diseases. Bed requested for Telemetry/MedSurg (Inpatient). Status is Inpatient Admission. Condition is Fair. Problem is new. Symptoms have improved. UTI on Admission? No. morena 11:45 11:38 12/26/2017 11:28 Hospitalization Ordered by Bhargav Pradhan MD for Inpatient morena Admission. Preliminary diagnosis is Cellulitis and acute lymphangitis of other parts of limb; Type 1 diabetes mellitus; Nausea and vomiting; End stage renal disease; Other peripheral vascular diseases; Elevated white blood cell count; Anemia, unspecified. Bed requested for Telemetry/MedSurg (Inpatient). Status is Inpatient Admission. Condition is Fair. Problem is new. Symptoms have improved. UTI on Admission? No. morena 11:45 11:45 12/26/2017 11:28 Hospitalization Ordered by Bhargav Pradhan MD for Inpatient morena Admission. Preliminary diagnosis is Cellulitis and acute lymphangitis of other parts of limb; Type 1 diabetes mellitus; Nausea and vomiting; End stage renal disease; Other peripheral vascular diseases; Elevated white blood cell count; Anemia, unspecified. Bed requested for Intensive Care Unit. Status is Inpatient Admission. Condition is Fair. Problem is new. Symptoms have improved. UTI on Admission? No. morena 12:52 11:45 12/26/2017 11:28 Hospitalization Ordered by Bhargav Pradhan MD [facility]patient [facility]. Preliminary diagnosis is Cellulitis and acute lymphangitis of other parts of limb; Type 1 diabetes mellitus; Nausea and vomiting; End stage renal disease; Other peripheral vascular diseases; Elevated white blood cell count; Anemia, unspecified. Bed requested for Intensive Care Unit. Status is Inpatient Admission. Condition is Serious. Problem is new. Symptoms have improved. UTI on Admission? No. morena 13:09 12:52 12/26/2017 11:28 Hospitalization Ordered by Bhargav Pradhan MD for [facility]patient [facility]. Preliminary diagnosis is Cellulitis and acute lymphangitis of other parts of limb; Type 1 diabetes mellitus; Nausea and vomiting; End stage renal disease; Other peripheral vascular diseases; Elevated white blood cell count; Anemia, unspecified; Gangrene, not elsewhere classified; Osteomyelitis. Bed requested for Intensive Care Unit. Status is Inpatient Admission. Condition is Serious. Problem is new. Symptoms have improved. UTI on Admission? No. [facility] 13:58 13:09 12/26/2017 11:28 Hospitalization Ordered by Bhargav Pradhan MD for Inpatient Admission. Preliminary diagnosis is Cellulitis and acute lymphangitis of other parts of limb; Type 1 diabetes mellitus; Nausea and vomiting; End stage renal disease; Other peripheral vascular diseases; Elevated white blood cell count; Anemia, unspecified; Gangrene, not elsewhere classified; Osteomyelitis; Cholelithiasis; Cholecystitis - chronic. Bed requested for Intensive Care Unit. Status is Inpatient Admission. Condition is Serious. Problem is new. Symptoms have improved. UTI on Admission? No. morena 15:23 13:58 12/26/2017 11:28 Hospitalization Ordered by Bhargav Pradhan MD for Inpatient Admission. Preliminary diagnosis is Cellulitis and acute lymphangitis of other parts of limb; Type 1 diabetes mellitus; Nausea and vomiting; End stage renal disease; Other peripheral vascular diseases; Elevated white blood cell count; Anemia, unspecified; Gangrene, not elsewhere classified; Osteomyelitis; Cholelithiasis; Cholecystitis - chronic. Bed requested for Intensive Care Unit. Status is Inpatient Admission. Condition is Serious. Problem is new. Symptoms have improved. UTI on Admission? No. dw
[2017-12-26 15:26] VITALS: BMI 23.8
--- NOTE | 2017-12-26 15:40 | EKG ---
Test Date: 2017-12-26 Test Time: 11:51:37 Audio Visual Aide: SHARIF MEASUREMENT RESULTS: Intervals: Rate: 84 MS: 140 QRSD: 116 QT: 404 QTc: 477 [place]: P: 61 MS: 140 QRS: -25 T: 218 INTERPRETIVE STATEMENTS: Sinus rhythm with occasional premature ventricular complexes Left ventricular hypertrophy with QRS widening ST & T wave abnormality, consider inferolateral ischemia Prolonged QT Abnormal ECG Compared to ECG 11/16/2017 13:43:39 Ventricular premature complex(es) now present Left ventricular hypertrophy now present Left bundle-branch block no longer present ST (T wave) deviation still present Possible ischemia still present Electronically Signed On 12-26-17 15:40:16 CDT by Parminder Alvarez
--- NOTE | 2017-12-26 15:45 | ECHO ---
HEIGHT: 5 ft 4 in WEIGHT: 138 lb 8 oz DATE OF STUDY: 12/26/[address]: James Toure MD 2-DIMENSIONAL: YES M.MODE: YES DOPPLER: YES COLOR FLOW: YES TDS: NO PORTABLE: NO DEFINITY: NO BUBBLE STUDY: NO DIAGNOSIS: NON Q WAVE CARDIAC HISTORY: CATHERIZATION: YES SURGERY: NO PROSTHETIC VALVE: NO PACEMAKER: NO MEASUREMENTS (cm) DIASTOLIC (NORMALS) SYSTOLIC (NORMALS) IVSd 1.2 (0.6-1.2) LA Diam 4.7 (1.9-4.0) LVEF 32% LVIDd 5.2 (3.5-5.7) LVIDs 4.4 (2.0-3.5) %FS 15% LVPWd 1.2 (0.6-1.2) Ao Diam 2.6 (2.0-3.7) 2 DIMENSIONAL ASSESSMENT: RIGHT ATRIUM: NORMAL LEFT ATRIUM: DILATED RIGHT VENTRICLE: NORMAL LEFT VENTRICLE: NORMAL TRICUSPID VALVE: NORMAL MITRAL VALVE: MITRAL ANNULAR CALCIFICATION PULMONIC VALVE: NORMAL AORTIC VALVE: SCLEROSIS PERICARDIAL EFFUSION: NONE AORTIC ROOT: NORMAL LEFT VENTRICULAR WALL MOTION: SEVERE GLOBAL HYPOKINESIS. DOPPLER/COLOR FLOW: MILD MITRAL, TRICUSPID AND AORTIC REGURGITATION. COMMENTS: MILD MITRAL, TRICUSPID AND AORTIC REGURGITATION. NORMAL RIGHT VENTRICULAR SYSTOLIC PRESSURE. SEVERE GLOBAL HYPOKINESIS. LEFT VENTRICULAR EJECTION FRACTION 30-35%. LEFT ATRIAL ENLARGEMENT. MITRAL ANNULAR CALCIFICATION. AORTIC SCLEROSIS. TECHNOLOGIST: Raymundo BARRON
[2017-12-26] MEDS ORDERED: ALPRAZOLAM 0.25 MG TABLET PO PRN (16:19)
[2017-12-26] MEDS ORDERED: CYCLOBENZAPRINE 10 MG TAB PO PRN (16:19)
[2017-12-26] MEDS ORDERED: HOME MED 1 EA UNK (Hydroxyzine Hcl [Atarax] 25 MG) PO PRN (16:19)
[2017-12-26] MEDS ORDERED: METOPROLOL TAR 25 MG TAB PO SCH (17:00)
[2017-12-26] MEDS ORDERED: LISINOPRIL 10 MG TAB PO SCH (17:00)
[2017-12-26] MEDS: SEVELAMER CARBONATE 800 MG TABLET PO SCH (17:24)
[2017-12-26] MEDS: INSULIN -REGULAR HUMAN 50 UNIT/0.5 ML ML SQ SCH ×2 (17:24→21:24)
[2017-12-26] MEDS ORDERED: HOME MED 1 EA UNK (Pregabalin [Lyrica] 100 MG) PO SCH (21:00)
[2017-12-26] MEDS: PREGABALIN 50 MG CAP PO SCH (21:24)
--- NOTE | 2017-12-26 22:57 | CON ---
Date of Consultation: 12/26/[address] Pradhan's service on 12/26/2017. I saw the patient on 12/26/2017. Reason For Consultation: Cardiac clearance for possible surgery on his left foot. History Of Present Illness: Mr. Prasad is a 52-year-old unfortunate , male who has had an extensive past history so far considering his age. He had diabetes that is uncontrolled. This santos s caused him to have end-stage renal disease on hemodialysis. He has hypertension. He has had a his tory of coronary artery disease, status post PCI. He has had a history of peripheral vascular diseas e, status post right BKA. I just recently did the left SFA stent on him. He comes in with left foot osteomyelitis and gangrene. CT scan of his abdomen showed chronic cholecystitis. He has chronic sy stolic congestive heart failure with an ejection fraction 30% to 35% that has been fairly stable. He is not having any CHF symptoms or chest pain. Allergies: HE IS ALLERGIC TO CLINDAMYCIN. Review of Systems: Negative. Social History: Positive for tobacco. Family History: Positive for heart disease and diabetes. Medications: At home include Plavix, Lasix, lisinopril, metoprolol, and Zaroxolyn. Physical Examination: Vital signs are stable. Afebrile. HEENT: Negative. Neck: Supple with no bruit. Chest: Clear. Cardiac exam revealed a regular rhythm and rate. No murmurs, gallops, or rubs. Abdomen: Benign. Extremities: Revealed gangrene and osteomyelitis on the left foot. He is status post right BKA. Diagnostic Data: His creatinine was 6.0. White count of 23,000, hemoglobin is 8.8. AST is 1277, AL T is 1431. BNP is 35,000. Troponin is 3.49. Impression And Plan: 1.Severe peripheral vascular disease, status post right below-knee amputation, status post left supe rficial femoral artery stent, and he is also status post right common iliac artery stent. He is mode rate risk for surgery for his left foot osteomyelitis and gangrene because of his chronic systolic co ngestive heart failure. An echocardiogram is pending. 2.Elevated liver function enzymes, certainly could be related to chronic passive congestion. I thin k a hepatitis panel is indicated. His BNP elevation and troponin elevation are secondary to chronic systolic congestive heart failure and renal failure. I am not so sure why Mr. Prasad is on Zaroxolyn and Lasix, but he probably should not be of those considering he is getting hemodialysis. I will con tinue his Plavix, lisinopril, and metoprolol for sure. His anemia is mild and secondary to his chron ic disease from his kidney failure. He has had a history of coronary artery disease, status post marianne nt and that has not been an issue lately. He has had negative Cardiolite not long ago. His diabetes is well controlled and his hypertension is well controlled. His elevated white count is secondary t o his osteomyelitis. He is presently on antibiotics. We will continue to follow Mr. Prasad along wit h Dr. Pradhan and Dr. Mclaughlin, who has been consulted. Time spent caring for Mr. Prasad was 45 minutes including discussion with him and his family, Dr. Filiberto katz, Dr. Pradhan, and the nurses. FARNAZ/DONNA Voice ID: [id number] Report ID: [id number]
--- NOTE | 2017-12-27 04:16 | HP ---
Date of Admission: 12/26/2017 Primary Care Physician: Dr. Alvarado. Consultants: Dr. Pacheco, Nephrology. Dr. Mclaughlin, General Surgery. Chief Complaint: Gangrenous toes, left lower extremity. History Of Present Illness: The patient is a 52-year-old male with past medical history of end-stage renal disease, on hemodialysis, diabetes and severe peripheral vascular disease with recent right co mmon femoral stent amongst multiple other comorbidities, who was recently discharged from the [facility] after having a cath done and stent placed in the common femoral artery. The patient comes in with necrosis of his left first, third, and fourth toes and has been ongoing for several weeks. The patie nt has been going to wound care and has been seeing Dr. Mclaughlin for his stump on the right lower ext remity after lower extremity amputation. The patient denies any fevers or chills. Does report some nausea and generalized malaise, some cough and congestion. The patient came into the ER for further evaluation. His workup revealed a white count of 23,000 with 1% band and left shift. His lactate wa s elevated. Liver enzymes also acutely elevated. His troponin was elevated at 3.49; however, no rai st pain. Procalcitonin was also elevated at 6. Imaging studies of the foot showed a soft tissue gas along the dorsum of the forefoot compatible with gas-forming infection, heavy vascular calcification , osteomyelitis of the third and fourth metatarsal heads. The patient was then referred for admissio n. When seen in the ER, he was awake, alert, oriented x3. Stated that his symptoms are constant, mo derate, and progressively worsening. No alleviating or aggravating factors. Past Medical History: Hypertension, diabetes, neuropathy, congestive heart failure, coronary artery disease with stents, end-stage renal disease, on dialysis, hyperlipidemia, noncompliance, anxiety, ca rdiac stent x9, open-heart surgery as a child, ear tubes, right common femoral stent, right-sided BKA . Allergies: CLINDAMYCIN. Medications: Reviewed. Family History: Mother had heart disease, hypertension, diabetes, Alzheimer disease. Father had hea rt disease, cancer, of colon cancer. Brother has heart disease, diabetes and kidney dise ase. Social History: Never smoked. No alcohol use or illicit drug use. The patient lives at home. Review of Systems: An 11-point system reviewed, negative except as per HPI. Physical Examination: Vital Signs: Temperature 98.4, heart rate 93, blood pressure 142/90, respirations 21, O2 100% on deng m air. General: Awake, alert, oriented x3, in some mild distress, ill-appearing, older than stated age male . HEENT: Normocephalic, atraumatic. PERRLA. EOMI. Moist mucous membranes. Oropharynx is clear. Poor dentition. Conjunctivae are anicteric. Neck: Supple. No JVD. Trachea midline. CV: S1, S2. No murmurs. Regular rate and rhythm. Peripheral pulses are weak. Respiratory: Clear to auscultation bilaterally. No wheezing. No stridor. No use of accessory musc les. Gastrointestinal: Abdomen is soft, nontender, nondistended. Positive bowel sounds. Extremities: No clubbing, cyanosis, or edema in left lower extremity. Musculoskeletal: Right BKA. Skin: The patient has gangrenous first, second, third, and fifth digits of the left foot. Right jaime mp site is bandaged; clean, dry, intact; no signs of drainage. Neuro: Cranial nerves 2 through 12 intact grossly. No focal neurological deficits. Speech is alma l. Laboratory Data: Sodium 130, potassium 5.1, chloride 95, CO2 21, BUN 53, creatinine 6.1, glucose 233 , lactate 2.6, calcium 2.9, magnesium 2.2, AST 1277, ALT 1431, troponin 3.49. BNP greater than 35,00 0. Albumin 2.6. Procalcitonin 6.05. WBC 23.8, H and H 8.8 and 28, platelets 260, neutrophils 92%. ESR greater than 140. INR 1.94. Foot x-ray shows soft tissue gas along the dorsum of the forefoot compatible with gas-forming infecti on, heavy vascular calcification, significant soft tissue swelling, subtle demineralization of the th ird and fourth metatarsal heads noted suggesting osteomyelitis. Chest x-ray shows the patient has ch ronic heart vasculature and lung parenchymal prominence. No significant failure or pulmonary edema i dentified. No new mass or consolidation. The focal nodular density in right mid lung field detailed in October is not identifiable on the current study. Echocardiogram shows EF 32%, global hypokinesis severe, left ventricular ejection fraction 30% to 35%. Assessment And Plan: This 52-year-old male with; 1.Necrotic gangrenous toes of the left foot. We will recommend amputation. Dr. Mclaughlin is on the case. The patient will go for surgery in a.m. I spoke with Dr. Alvarez regarding cardiac clearance. Echocardiogram has been done, shows EF 30% to 35%. The patient recently had a catheterization done . Okay to proceed for surgery by Dr. Alvarez. 2.Elevated troponin level. Troponin is 3.9. Likely secondary to demand mismatch. No chest pain. No changes on EKG. We will continue with home medications. 3.Coronary artery disease in his right [place] heart, status post stent without angina. 4.Severe peripheral vascular disease. 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 6.End-stage renal disease, on hemodialysis. Dr. Pacheco has been consulted. We will continue hemo dialysis as scheduled. 7.Generalized anxiety disorder. Resume home medications. 8.Hyperlipidemia, mixed. 9.Congestive heart failure, systolic dysfunction, chronic. 10.Essential hypertension, stable. We will resume home medications. 11.Elevated liver enzymes, unclear etiology. We will check hepatitis panel. 12.Sepsis. WBC count is 23 with left shift. The patient's heart rate is 93, respirations 21. Sour ce of infection is lower extremity gangrene of the foot. We will continue with broad-spectrum IV ant ibiotics and obtain blood cultures and wound cultures. Overall, the patient has a poor prognosis, is intermediate risk for surgery. /DONNA Voice ID: [id number]
[2017-12-27 05:04] LABS: Absolute Lymphocytes (CBC) 0.4 K/uL (0.7-4.9); Absolute Monocytes 1.3 K/uL (0.1-1.3); Absolute Neutrophil 21.2 K/uL (1.8-8.0); Basophils % 0.2 % (0-1.3); Eosinophils % 0.1 % (0-4.4); Hematocrit 27.4 % (39.6-49.0); Lymphocytes % 1.9 % (15.3-44.8); MCH 28.3 pg (27.0-35.0); MCV 86.6 fL (80-100); MPV 9.8 fL (7.6-11.3); Monocytes % 5.8 % (3.3-12.3); RBC Red Blood Cell Count 3.16 M/uL (4.33-5.43)
[2017-12-27 05:30] LABS: Potassium 5.3 mmol/L (3.5-5.1)
[2017-12-27] MEDS: INSULIN -REGULAR HUMAN 50 UNIT/0.5 ML ML SQ SCH ×4 (07:30→21:00)
[2017-12-27] MEDS: SEVELAMER CARBONATE 800 MG TABLET PO SCH ×3 (07:47→18:01)
[2017-12-27] MEDS ORDERED: SOD POLYSTYREN SUL 15 GM/60 ML UCUP PO ONE (08:44)
[2017-12-27] MEDS: FUROSEMIDE 40 MG TABLET PO SCH (08:46)
[2017-12-27] MEDS: PREGABALIN 50 MG CAP PO SCH ×2 (08:46→21:07)
[2017-12-27] MEDS: MULTIVITAMINS,THERAPEUT 1 TAB PO SCH (08:47)
[2017-12-27] MEDS: RANITIDINE 150 MG TABLET PO SCH (08:47)
[2017-12-27] MEDS ORDERED: CEFEPIME IV SCH ×5 (09:00→17:00)
[2017-12-27] MEDS ORDERED: RANITIDINE HCL 300 MG PO SCH (09:00)
[2017-12-27] MEDS ORDERED: WATER FOR INJ STERILE IV SCH ×5 (09:00→17:00)
[2017-12-27] MEDS: MORPHINE 2 MG/ML SYR IV PRN (10:35)
[2017-12-27] MEDS ORDERED: MIDAZOLAM HCL 2 MG/2 ML INJ ONE (10:48)
[2017-12-27] MEDS ORDERED: PROPOFOL 200 MG/20 ML VIAL IV ONE (10:48)
[2017-12-27] MEDS ORDERED: LIDOCAINE 2% MPF 5 ML VIAL ONE (10:48)
[2017-12-27] MEDS ORDERED: FENTANYL CITR 100 MCG/2 ML ONE (10:48)
[2017-12-27] MEDS ORDERED: NA CHLORIDE 0.9% 500 ML ONE (11:27)
[2017-12-27] MEDS ORDERED: ETOMIDATE 20 MG/10 ML VIAL IV ONE (11:45)
[2017-12-27] MEDS ORDERED: NEOSTIGMINE 1 MG/ML -5 ML SYRINGE ONE (11:48)
[2017-12-27] MEDS ORDERED: GLYCOPYRROLATE 0.2 MG/ML SYR ONE ×2 (11:49→11:50)
--- NOTE | 2017-12-27 12:35 | P.BOP ---
Preoperative diagnosis: wet gangrene left first , third and fourth toe with abscess Postoperative diagnosis: same Primary procedure: 1. Amputation of left 1st gangrenous toe Secondary procedure: 2. Amputation of left 3rd gangrenous toe Other procedure(s): 3. Amputation of left 4th gangrenous toe Estimated blood loss: <10cc Specimen: toes, culture of abscess of foot Findings: see dicta Anesthesia: General Complications: None Drain(s): Other Transferred to: Recovery Room Condition: Good
[2017-12-27] MEDS: COLLAGENASE 30 GM OINTMENT TOP SCH ×2 (13:45→21:09)
--- NOTE | 2017-12-27 14:22 | PN ---
Date of Progress Note: 12/27/2017 Subjective: The patient is seen and examined. Chart reviewed and case discussed with RN and Dr. Mary Ann swanson. The patient is going for surgery today. Denies any significant knee pain, which is controlle d with medications. Review of Systems: Negative except as above. Medications: Reviewed. Physical Examination: Vital Signs: Temperature 98.1, heart rate 82, blood pressure 134/82, respirations 20, O2 97% on room air. General: Awake, alert, oriented x3. No acute distress. Appears older than stated age, ill-appearin g male. CV: S1, S2. No murmurs. Regular rate and rhythm. Weak pulses. Respiratory: Moving air well bilaterally. No wheezing. Gastrointestinal: Abdomen is soft, nontender, nondistended. Positive bowel sounds. Extremities: No clubbing, cyanosis. Edema of the left lower extremity. Musculoskeletal: Right BKA. Skin: The patient has erythema and gangrene of the left foot along with the gangrene of the first an d second through fifth toes. Foul smelling odor. Neurologic: Nonfocal. Laboratory Data: Sodium 133, potassium 5.3, chloride 96, CO2 19, BUN 72, creatinine 7.2, glucose 162 , calcium 8.7. WBC 23.1, H and H 8.9 and 27.4, platelets 225, neutrophils 92%. Blood cultures pendi ng. Wound cultures pending. Assessment And Plan: A 52-year-old male with: 1.Necrotic gangrenous toe, left foot. Will go for amputation today by Dr. Mclaughlin. Secondary to p oor vascular status, severe arterial disease, and diabetes. We will continue with IV antibiotics. 2.Elevated troponin level, troponin 3.9, likely related to demand mismatch. Cardiology on board. N o Non-ST segment elevation myocardial infarction. We will continue Plavix once the patient is 25 [place] rs post surgery. 3.Coronary artery disease, [place] artery and [place] heart without angina. 4.Severe peripheral vascular disease status post multiple stents. 5.Diabetes mellitus type 2 with long-term use of insulin and neuropathy. We will continue Accu-Chek s and insulin home dose. 6.End-stage renal disease, on hemodialysis. Dr. Pacheco on the case. The patient will go for dial ysis after surgery. 7.Generalized anxiety disorder, stable. 8.Mixed hyperlipidemia. 9.Congestive heart failure, chronic systolic dysfunction. 10.Essential hypertension, stable. 11.Elevated liver enzymes may be related to above. We will check CK level. May be from passive con gestion. Hepatitis panel was checked recently in October. 12.Sepsis, improving. The patient still has elevated white count. Continue broad-spectrum IV antib iotics. We will switch to Zosyn as cefepime can worsen hepatic congestion. Overall, the patient has a poor prognosis. Surgery is intermediate to high risk given his comorbid conditions. /MODL Voice ID: [id number] Report ID: [id number]
--- NOTE | 2017-12-27 15:37 | CON ---
Date of Consultation: 12/27/2017 Additional Consulting Physician: Dr. Bhargav Pradhan. Reason For Consultation: Elevated BUN and creatinine, electrolyte imbalance, hypertension, end-stage renal disease. History Of Present Illness: This is a pleasant 52-year-old unfortunate gentleman with significant [facility] medical history of end-stage renal disease, on dialysis Monday, Monday, Monday through , right IJ at [facility], last dialysis Monday, diabetes complicated with neuropa thy and nephropathy, peripheral vascular disease status post below-knee amputation on the left side, coronary artery disease complicated with congestive heart failure status post PTCA, hypertension, the patient had gangrenous toes on the left side, worsening, did not improve on IV antibiotic as outpati ent. The patient was admitted for elective TMA. The patient denied any fever, any chills. Primary workup showed severe leukocytosis. He was stable hemodynamically. The patient's lab also showed elevated LFTs. Past Medical History: Includes: 1.Coronary artery disease complicated with congestive heart failure status post PTCA. 2.Hypertension. 3.Hyperlipidemia. 4.End-stage renal disease. 5.Peripheral vascular disease status post left below-knee amputation. Allergies: NO KNOWN DRUG ALLERGIES. Family History: Positive for diabetes and hypertension. Social History: Denies smoking, denies drinking, denies drug abuse. Past Surgical History: Includes: 1.PTCA, PermCath placement. 2.Below-knee amputation on the right. 3.Angioplasty, multiple. Review of Systems: Head and Neck: No red eye. No ear pain. GI: No nausea. No vomiting. : No polyuria. No dysuria. No hematuria. PASTE UP ARTIST APPRENTICE: Not applicable. Respiratory: No shortness of breath. Cardiovascular: No chest pain. Neuro: Has neuropathy. Musculoskeletal: Has leg, foot pain. Endocrine: No polydipsia. Skin: No rash. Physical Examination: Vital Signs: When I saw the patient, blood pressure 140/66, pulse of 88. Chest: Clear to auscultation. Heart: S1, S2. Regular rhythm. Systolic murmur. Abdomen: Soft, nontender. Extremities: Right below-knee amputation. Dressing on the left foot with foul smelling. Neuro: Alert. Nonfocal. Medications: Home medications include Renvela, Lasix 80 daily, clonidine, insulin, Plavix, hydrocodo ne, lisinopril 10, mupirocin. Hospital medications include furosemide, , lisinopril 10, me toprolol, Lyrica, ranitidine, Renvela, vancomycin, B complex. Laboratory Data: WBC 23.1, H and H 8.9/27.4, platelets of 225. Sodium 133, potassium 5.3, bicarb 19 , BUN 72, creatinine 7.2. Lactic acid 2.7. AST 1277, ALT 1431, alkaline phosphatase 244. Troponin 3.4. BNP 3500. Chest x-ray showing cardiomegaly with mild congestion. No real infiltration. Blood culture still pending, but is still negative. Assessment And Plan: 1.End-stage renal disease, slightly on the over volume side with hyperkalemia. I am going to dialyz e the patient today. We will challenge the patient. We will go ahead and get also blood culture thr ough the catheter given the leukocytosis even though I suspect the leukocytosis coming from the gangr enous toe. 2.Hypertension, controlled, optimal. We will utilize blood pressure for more ultrafiltration. 3.Diabetes as by primary. 4.Gangrenous toe secondary to peripheral vascular disease, foot infection. I agree with vancomycin given the elevation in the transaminase. We will discuss with Dr. Pradhan to switch the cephalosporin to Zosyn. We will follow up. 5.Ultrasound showing chronic cholelithiasis with cholecystitis. We will discuss with GI regarding e valuation of possible ERCP and we will follow up. transaminase did not trend after changi ng the antibiotic. 6.Hyperkalemia. The patient going to be dialyzed on low-potassium bath. 7.Over volume. The patient is going to be challenged on the dialysis. Case discussed with Dr. Josephine rodriguez, agreed on the plan. Discussed with the patient, agreed, and verbalized understanding. HARRIET Voice ID: [id number] Report ID: [id number]
[2017-12-27] MEDS: EPOETIN ALFA 10,000 UNIT/ML VIAL IV SCH (17:24)
[2017-12-27] MEDS: PIPER/TAZO/NS 2.25gm 2.25 GM/50 ML BAG IVPB SCH (18:01)
[2017-12-27] MEDS: VANCOMYCIN 500 MG in NA CHLORIDE 0.9% 100 ML IVPB SCH (18:01)
[2017-12-28] MEDS: HYDROCODONE/APAP 10/325 TAB PO PRN ×2 (00:28→17:36)
[2017-12-28] MEDS: PIPER/TAZO/NS 2.25gm 2.25 GM/50 ML BAG IVPB SCH ×3 (00:28→17:20)
--- NOTE | 2017-12-28 00:42 | OP ---
Date of Procedure: 12/27/2017 Surgeon: Inocencio Mclaughlin MD Preoperative Diagnosis: Wet gangrene, left first, third and fourth toe with abscess and cellulitis o f the foot. Postoperative Diagnosis: Wet gangrene, left first, third and fourth toe with abscess and cellulitis of the foot. Procedure: 1.Amputation of the left first gangrenous toe. 2.Amputation of left third gangrenous toe with abscess drainage. 3.Amputation of the left fourth gangrenous toe with abscess drainage. Estimated Blood Loss: Less than 10 cc. Specimen: Toes. Culture of abscess of the foot. Findings: The patient has three toes gangrenous, severe peripheral vascular disease. There is an ab scess. With gangrenous changes starting on the distal left foot that was debrided with the removal of a third and fourth toe. This is a case of a male, who comes to us with severe peripheral vascular d isease, recently had an amputation of the right lower extremity due to gangrene, now comes with progr ession of gangrene of the left lower extremity. He has been having this dry gangrene for some time. He is unable to make the decision if he wants that removed or not. We have been encouraging him to do so. Yesterday, he was starting to feeling malaise. We recommended him to go immediately to the E [facility] and let us at least amputate those 3 toes, although I believe he need higher amputation in that. yaneth is not ready to commit for that 1, so he was admitted, medically optimized and signed a consent for removal of first, third and fourth gangrenous toes in between the third and fourth, the base of that shows an abscess already with proximal changes of gangrenous changes in the foot itself. Benefits a nd alternatives were explained which include but are not limited to infection, bleeding, damage to ad jacent structures, anesthesia complication, nonhealing wound, CO, and even . He also understand s this may not relieve any symptoms. He might need more than one surgical intervention. He will req uire wound care and even more amputations if this does not heal. He signed the consent. Description Of Procedure: The patient was brought to the operating room, placed in supine position. Anesthesia was done without complication. The left foot was prepped and draped in sterile fashion. We have started with the first toe and incision was made. The patient had gangrene all over the toe s, so we made an incision and did a guillotine amputation of that toe at the level of the metatarsoph alangeal joint. The toe was removed. Area was irrigated. Hemostasis was obtained. Minimal bleedin g expected in his case. Then, after that, we went to the third and fourth toe. Once again, we did t he same way. We did incision of the skin. Incision was carried down to the metatarsophalangeal join t. We amputated at that level. The head of the metatarsal bone was removed in the third and first. Then, we went to the fourth toe. In that case, once again, we found the connection between the metat arsophalangeal joint, made an incision in that area. We have abscess going into the metatarsal regio n that was drained, necrotic tissue from the proximal gangrene also. The foot was also debrided. The area was irrigated. Hemostasis obtained. Then each area was packed with wet-to-dry dressing. The patient tolerated the procedure well. The patient was sent to recovery in stable condition. YARIEL/DONNA Voice ID: [id number] Report ID: [id number]
[2017-12-28] MEDS: hydrOXYzine HCl 25 MG TAB PO PRN ×2 (03:58→21:46)
[2017-12-28 04:13] LABS: Absolute Lymphocytes (CBC) 0.4 K/uL (0.7-4.9); Absolute Monocytes 0.9 K/uL (0.1-1.3); Absolute Neutrophil 15.6 K/uL (1.8-8.0); Basophils % 0.4 % (0-1.3); Eosinophils % 1.1 % (0-4.4); Hematocrit 29.5 % (39.6-49.0); Lymphocytes % 2.2 % (15.3-44.8); MCH 27.1 pg (27.0-35.0); MCV 87.9 fL (80-100); MPV 9.7 fL (7.6-11.3); Monocytes % 5.5 % (3.3-12.3); RBC Red Blood Cell Count 3.35 M/uL (4.33-5.43)
[2017-12-28 04:29] LABS: Potassium 4.5 mmol/L (3.5-5.1)
[2017-12-28] MEDS: INSULIN -REGULAR HUMAN 50 UNIT/0.5 ML ML SQ SCH ×4 (09:16→21:00)
[2017-12-28] MEDS: SEVELAMER CARBONATE 800 MG TABLET PO SCH ×3 (09:17→17:20)
[2017-12-28] MEDS: PREGABALIN 50 MG CAP PO SCH ×2 (09:18→21:36)
[2017-12-28] MEDS: MULTIVITAMINS,THERAPEUT 1 TAB PO SCH (09:18)
[2017-12-28] MEDS: RANITIDINE 150 MG TABLET PO SCH (09:18)
[2017-12-28] MEDS: FUROSEMIDE 40 MG TABLET PO SCH (09:18)
[2017-12-28] MEDS: COLLAGENASE 30 GM OINTMENT TOP SCH ×2 (09:19→21:37)
--- NOTE | 2017-12-28 12:19 | PN ---
Date of Progress Note: 12/28/2017 Subjective: The patient is seen and examined. Chart reviewed and case discussed with RN. The patie nt did well with surgery. He denies any significant amount of pain. Review of Systems: Negative except as above. Medications: Reviewed. Physical Examination: Vital Signs: Temperature 97.8, heart rate 68, blood pressure 125/58, respirations 18, O2 94% on room air. General: Awake, alert, oriented x3, not in any acute distress. Appears older than stated age male. CV: S1, S2. No murmurs. Regular rate and rhythm. Peripheral pulses present. Respiratory: Clear to auscultation bilaterally. No wheezes. Gastrointestinal: Abdomen is soft, nontender, nondistended. Positive bowel sounds. Extremities: No clubbing, cyanosis. Mild pedal edema on the left. Musculoskeletal: Right BKA. Left foot bandaged. Neurologic: Nonfocal. Laboratory Data: Sodium 134, potassium 4.5, chloride 98, CO2 23, BUN 43, creatinine 4.9, glucose 206 , calcium 8.4. WBC 17.2, H and H 9.1 and 29.5, platelets 238, neutrophils 90%. Blood cultures, no g rowth to date. Wound cultures, mixed skin efrain. Assessment And Plan: A 52-year-old male with: 1.Necrotic gangrenous left digits first, third, and fourth status post amputation by griffin Wilson ostoperative day #1. The patient has severe peripheral vascular disease and diabetes. We will kerri nue with IV antibiotics, follow up on cultures. 2.Elevated troponin. No Non-ST segment elevation myocardial infarction. Appreciate Dr. Alvarez's i nput. Need to resume Plavix today after 24 hours post surgery. 3.Coronary artery disease, [place] artery and [place] heart without angina, stable. 4.Severe peripheral vascular disease, status post multiple stents. 5.Diabetes mellitus type 2 with long-term use of insulin and neuropathy. We will continue sliding s sangita insulin. 6.End-stage renal disease, on hemodialysis. Appreciate Dr. Pacheco's input. The patient was dialy zed yesterday. 7.Generalized anxiety disorder, stable. 8.Mixed hyperlipidemia. 9.Congestive heart failure, chronic systolic dysfunction, stable. We will monitor I's and O's. Flu id restriction and low-sodium diet. 10.Essential hypertension, stable. 11.Elevated liver enzymes. We will repeat LFTs today. 12.Sepsis, improving. White count is trending down. We will continue IV antibiotics for now. /DONNA Voice ID: [id number] Report ID: [id number]
[2017-12-28] MEDS: CLOPIDOGREL 75 MG TABLET PO SCH (14:35)
[2017-12-28] MEDS: ENOXAPARIN 30 MG/0.3 ML SQ SCH (17:19)
--- NOTE | 2017-12-28 17:53 | PN ---
Date of Progress Note: 12/28/2017 Subjective: The patient doing slightly better status post 3 toe amputation yesterday. The patient i s still lumpy from the anesthesia. Physical Examination: Vital Signs: Blood pressure 144/63, pulse of 97, afebrile. Chest: Clear to auscultation. Heart: S1, S2. Regular. Systolic murmur. Abdomen: Soft, nontender. Extremities: Right below-knee amputation, left 3 toe amputation with dressing. Laboratory Data: WBC 17.2 trending down, H and H 9.1/29.5, platelets 238. Sodium 134, potassium 4.5 , bicarb 23, BUN 43, creatinine 4.9, calcium 8.4. Medications: Current medications the patient on its include: 1.Zosyn. 2.Vancomycin. 3.Atarax. 4.Epogen. 5.Lisinopril 10. 6.Metoprolol. 7.Alprazolam. 8.Lyrica. 9.Lasix 80. 10.Renvela. 11.Zofran. 12.Zyrtec. 13.Morphine. Assessment And Plan: 1.End-stage renal disease, normal volume. I am going to go ahead and arrange for the dialysis tomor row. The patient is going to be dialyzed on 2 K bath and we will monitor the patient. 2.Hypertension, controlled, optimal. Continue current medication. 3.Gangrenous toe status post amputation. Culture still pending. Continue current antibiotic. We w ill follow up with Surgery and primary. We will get PT evaluation. 4.Diabetes as by primary. 5.Peripheral vascular disease, status post amputation. We will follow up with Surgery. 6.Anemia. Continue Epogen. 7.Secondary hyperparathyroidism. Continue binder. Case discussed with the patient, verbalized unde rstanding. ULYSSES/DONNA Voice ID: [id number] Report ID: [id number]
[2017-12-28] MEDS: MORPHINE 2 MG/ML SYR IV PRN (21:50)
[2017-12-29] MEDS: PIPER/TAZO/NS 2.25gm 2.25 GM/50 ML BAG IVPB SCH ×3 (01:41→17:00)
[2017-12-29 05:46] LABS: Absolute Lymphocytes (CBC) 0.7 K/uL (0.7-4.9); Absolute Monocytes 0.9 K/uL (0.1-1.3); Absolute Neutrophil 14.9 K/uL (1.8-8.0); Basophils % 0.6 % (0-1.3); Eosinophils % 2.4 % (0-4.4); Hematocrit 31.9 % (39.6-49.0); Lymphocytes % 3.9 % (15.3-44.8); MCH 27.7 pg (27.0-35.0); MCV 88.9 fL (80-100); Monocytes % 5.4 % (3.3-12.3); RBC Red Blood Cell Count 3.59 M/uL (4.33-5.43)
[2017-12-29 06:05] LABS: Albumin 2.2 g/dL (3.4-5.0); Bilirubin Direct 0.6 mg/dL (0-0.2); Bilirubin Total 1.1 mg/dL (0.2-1.0); Potassium 3.8 mmol/L (3.5-5.1); Protein, Total 7.3 g/dL (6.4-8.2)
[2017-12-29] MEDS: INSULIN -REGULAR HUMAN 50 UNIT/0.5 ML ML SQ SCH ×4 (07:30→21:00)
[2017-12-29 08:18] LABS: Platelet Estimate ADEQ
[2017-12-29 08:19] LABS: Anisocytosis 1+; Blood Morphology Comment NOTED (NOT SEEN); Platelets, Giant FEW; Polychromasia 1+
[2017-12-29] MEDS: MULTIVITAMINS,THERAPEUT 1 TAB PO SCH (08:45)
[2017-12-29] MEDS: RANITIDINE 150 MG TABLET PO SCH (08:46)
[2017-12-29] MEDS: FUROSEMIDE 40 MG TABLET PO SCH (08:46)
[2017-12-29] MEDS: SEVELAMER CARBONATE 800 MG TABLET PO SCH ×3 (08:46→17:00)
[2017-12-29] MEDS: CLOPIDOGREL 75 MG TABLET PO SCH (08:46)
[2017-12-29] MEDS: PREGABALIN 50 MG CAP PO SCH ×2 (08:46→21:03)
[2017-12-29] MEDS: COLLAGENASE 30 GM OINTMENT TOP SCH ×2 (08:47→21:00)
[2017-12-29] MEDS: HYDROCODONE/APAP 10/325 TAB PO PRN ×2 (10:57→22:29)
--- NOTE | 2017-12-29 14:20 | PN ---
Date of Progress Note: 12/29/2017 Subjective: The patient is seen and examined. Chart reviewed and case discussed with RN. The patie nt is doing better. No complaints of any pain. Review of Systems: Negative except as above. Medications: List reviewed. Physical Examination: Vital Signs: Temperature 97.8, heart rate 78, blood pressure 143/75, respirations 16, O2 99% on room air. General: Awake, alert, oriented x3. No acute distress. Appears older than stated age, somewhat ill -appearing. CV: S1 and S2. Peripheral pulses weak. Respiratory: Moving air well bilaterally. No wheezing. Gastrointestinal: Abdomen is soft, nontender, nondistended. Positive bowel sounds. Extremities: No clubbing, cyanosis, or edema. Musculoskeletal: Right BKA. Skin: Right and left foot has bandage, clean, dry, intact. No drainage. Neurologic: Nonfocal. Laboratory Data: Sodium 136, potassium 3.8, chloride 96, CO2 25, BUN 15, creatinine 6.4, glucose 152 , calcium 8.4. ALT 78, AST 150, albumin 2.2. WBC is 17, H and H 10 and 31.9, platelets 271, neutrop hils 87. Blood cultures, no growth to date. Wound cultures are pending. Assessment And Plan: A 52-year-old male with: 1.Diabetic necrotic gangrenous left toes, status post amputation of the first, third, and fourth wit h significant amount of abscess and pus. We will continue with IV antibiotics. The patient will oj ntually require BKA secondary to peripheral vascular disease and diabetes. We will continue antibiot ics and follow up blood cultures. 2.Elevated troponin. No ST-segment elevation myocardial infarction. Cardiology on board. We will continue Plavix. 3.Coronary artery disease, [place] artery and [place] heart without angina, stable. 4.Peripheral vascular disease status post stent. 5.Diabetes mellitus type 2 with long-term use of insulin and neuropathy. We will continue sliding s sangita insulin. 6.End-stage renal disease, on hemodialysis. Nephrology on board. Likely be dialyzed in a.m. 7.Generalized anxiety disorder, stable. 8.Mixed hyperlipidemia, statin. 9.Congestive heart failure, chronic systolic dysfunction, stable. We will continue low-sodium diet, fluid restriction. 10.Essential hypertension, stable. 11.Elevated liver enzymes, improving. May be related to sepsis. 12.Sepsis, improving. White count is still elevated, however, trending down. Cultures no growth to day. Plan: Transfer to rehab was accepted. We will continue with IV antibiotics. SA/MODL Voice ID: [id number] Report ID: [id number]
[2017-12-29] MEDS: EPOETIN ALFA 10,000 UNIT/ML VIAL IV SCH (14:31)
[2017-12-29] MEDS: VANCOMYCIN 500 MG in NA CHLORIDE 0.9% 100 ML IVPB SCH (15:02)
[2017-12-29] MEDS: ENOXAPARIN 30 MG/0.3 ML SQ SCH (17:00)
[2017-12-29] MEDS: MORPHINE 2 MG/ML SYR IV PRN (23:32)
[2017-12-30] MEDS: PIPER/TAZO/NS 2.25gm 2.25 GM/50 ML BAG IVPB SCH ×3 (00:17→16:39)
--- NOTE | 2017-12-30 02:22 | PN ---
Date of Progress Note: 12/29/2017 Chief Complaint: End-stage renal disease, on dialysis. History Of Present Illness: The patient has history of diabetic kidney disease. He remains dialysis dependent, has been dialyzed 3 times per week. He is admitted to the hospital for nonhealing lower extremity wound and osteomyelitis. He underwent third toe amputation and he is on IV antibiotics for osteomyelitis, also received wound care. The patient was found to have gangrenous third toe and underwent amputation. Review of Systems: Denies fever chills. Physical Examination: Lungs: Clear to auscultation bilaterally. Heart: S1, S2. Systolic murmur 2/6 in left sternal border. Abdomen: Soft, benign. Extremities: Right below-knee amputation, left third toe amputation with dressing. Laboratory Data: WBC 17.2, hemoglobin 9.1. Sodium 134, potassium 4.5, chloride 98, CO2 23, BUN 43, creatinine 4.9, calcium 8.4. Impression And Plan: 1. End-stage renal disease. The patient will have dialysis today. Continue to monitor electrolytes. The patient will be dialyzed on two potassium baths and monitor electrolytes closely. 2. Hypertension. Blood pressure medication adjusted and blood pressure improved. 3. Gangrenous toe status post amputation. Continue antibiotics and wound care. The patient is to start PT for evaluation. 4. Diabetes mellitus. Continue insulin. 5. Anemia. Continue on Epogen. Continue treatment as before. 6. Renal osteodystrophy. Continue renal diet and binders. EB/MODL Voice ID: [id number] Report ID: [id number] HEATHER
[2017-12-30] MEDS: INSULIN -REGULAR HUMAN 50 UNIT/0.5 ML ML SQ SCH ×4 (07:30→21:00)
[2017-12-30] MEDS: SEVELAMER CARBONATE 800 MG TABLET PO SCH ×3 (07:52→16:33)
[2017-12-30] MEDS: HYDROCODONE/APAP 10/325 TAB PO PRN ×2 (08:04→19:03)
[2017-12-30] MEDS: CLOPIDOGREL 75 MG TABLET PO SCH (08:05)
[2017-12-30] MEDS: MULTIVITAMINS,THERAPEUT 1 TAB PO SCH (08:05)
[2017-12-30] MEDS: RANITIDINE 150 MG TABLET PO SCH (08:05)
[2017-12-30] MEDS: FUROSEMIDE 40 MG TABLET PO SCH (08:05)
[2017-12-30] MEDS: PREGABALIN 50 MG CAP PO SCH ×2 (08:05→22:10)
[2017-12-30] MEDS: COLLAGENASE 30 GM OINTMENT TOP SCH ×2 (08:06→21:00)
--- NOTE | 2017-12-30 13:34 | PN ---
Date of Progress Note: 12/30/2017 Subjective: The patient seen and examined. Chart reviewed and case discussed with RN. The patient is doing well and does not complain of any pain. Review of Systems: Negative except as above. Medications: Reviewed. Physical Examination: Vital Signs: Temperature 97.9, heart rate 80, blood pressure 140/75, respirations 18, O2 sat 96% on room air. General: Awake, alert, oriented x3. No acute distress. Appears older than stated age. CV: S1, S2. No murmurs. Weak pulses. Respiratory: Moving air well bilaterally. No wheezing. Gastrointestinal: Abdomen is soft, nontender, nondistended. Positive bowel sounds. Extremities: No clubbing, cyanosis, edema. Musculoskeletal: Right BKA, left 1st, third, fourth toe amputation. Skin: Left foot bandage that is clean, dry, intact. No drainage. Neurologic: Nonfocal. Laboratory Data: Glucose 152. Other labs are pending at this time. Wound culture is growing Haemophilus parainfluenza and Pseudomonas aeruginosa. Assessment And Plan: A 52-year-old male with: 1. Diabetic necrotic gangrenous left toes status post amputation of the first , third, and fourth toe with significant amount of abscess. Continue IV antibiotics. Cultures growing Pseudomonas aeruginosa and Haemophilus parainfluenza. Sensitivities noted. We will obtain ID consultation. 2. Elevated troponin. No [id number] myocardial infarction. No intervention from Cardiology at this point. We will continue Plavix. 3. Coronary artery disease, [place] artery and [place] heart without angina, stable. 4. Peripheral vascular disease, status post stents, on Plavix. 5. Diabetes mellitus type 2 with long-term use of insulin with neuropathy. We will continue sliding scale insulin. Continue Accu-Cheks. 6. End-stage renal disease, on hemodialysis. The patient has been dialyzed yesterday. Nephrology on board. 7. Generalized anxiety disorder, stable. 8. Hyperlipidemia. Continue statin. 9. Congestive heart failure. Chronic systolic dysfunction, stable. We will continue fluid restriction, 2 g sodium diet and monitor I's and O's. 10. Essential hypertension, stable. 11. Elevated liver enzymes, improving, likely related to sepsis. 12. Sepsis, improving clinically. The patient is significantly better. White count still elevated. We will follow up with CBC. 13. Gastrointestinal and deep venous thrombosis prophylaxis with PPI and Lovenox. Plan: Rehab referral. ID consultation. /DONNA Voice ID: [id number] Report ID: [id number] MTDD
[2017-12-30] MEDS: ENOXAPARIN 30 MG/0.3 ML SQ SCH (16:33)
--- NOTE | 2017-12-30 18:22 | PN ---
Date of Progress Note: 12/30/2017 Diagnosis: Gangrene of left lower extremity. Medically, the patient states he feels better. Physical Examination: Chest: Bilateral breath sounds. Abdomen: Soft and depressible. Extremities: Right side intact wound. On the left side, his toes that he want to save still turn to look a little bit cyanotic. There is not much of a granulation present, although we do not expect t hat at this moment. The area of gangrene is still under control , but the foot itself ____ look like it is going to be viable. We fully explained to him once again that this may requir e a higher amputation. Assessment: A 52-year-old patient, feels better, but still believe the circulation in that left foot is not enough to sustain and preserve that foot. He is still not ready to commit to anything higher amputation at least. We removed the toes that were just having wet gangrene with abscess and pus ov er that area. Wound Care will probably try to control this infection, but I do not think it is enoug h the circulation to heal that area properly. So, we discussed with him once again the option of amp utation. He is not ready to make a commitment yet, so we are going to continue with antibiotics, rene ssing changes, and clinical optimization. YARIEL/DONNA Voice ID: [id number] Report ID: [id number]
[2017-12-30] MEDS: MORPHINE 2 MG/ML SYR IV PRN (22:10)
[2017-12-31] MEDS ORDERED: NA CHLORIDE 0.9% 100 ML ONE (00:26)
[2017-12-31] MEDS: PIPER/TAZO/NS 2.25gm 2.25 GM/50 ML BAG IVPB SCH ×3 (00:27→16:35)
[2017-12-31 05:34] LABS: Absolute Lymphocytes (CBC) 0.6 K/uL (0.7-4.9); Absolute Neutrophil 12.3 K/uL (1.8-8.0); Eosinophils % 2.7 % (0-4.4); MCH 27.4 pg (27.0-35.0); MCV 89.8 fL (80-100); MPV 9.8 fL (7.6-11.3); Monocytes % 7.2 % (3.3-12.3); RBC Red Blood Cell Count 3.57 M/uL (4.33-5.43)
[2017-12-31 05:53] LABS: Albumin 2.1 g/dL (3.4-5.0); Bilirubin Total 1.4 mg/dL (0.2-1.0); Potassium 3.8 mmol/L (3.5-5.1); Protein, Total 7.3 g/dL (6.4-8.2)
[2017-12-31] MEDS: INSULIN -REGULAR HUMAN 50 UNIT/0.5 ML ML SQ SCH ×4 (07:30→21:10)
[2017-12-31] MEDS: SEVELAMER CARBONATE 800 MG TABLET PO SCH ×3 (07:45→16:36)
[2017-12-31] MEDS: COLLAGENASE 30 GM OINTMENT TOP SCH ×2 (09:00→21:00)
[2017-12-31] MEDS: FUROSEMIDE 40 MG TABLET PO SCH (09:20)
[2017-12-31] MEDS: PREGABALIN 50 MG CAP PO SCH ×2 (09:21→21:07)
[2017-12-31] MEDS: MULTIVITAMINS,THERAPEUT 1 TAB PO SCH (09:22)
[2017-12-31] MEDS: RANITIDINE 150 MG TABLET PO SCH (09:23)
[2017-12-31] MEDS: CLOPIDOGREL 75 MG TABLET PO SCH (09:24)
[2017-12-31] MEDS: HYDROCODONE/APAP 10/325 TAB PO PRN (11:53)
--- NOTE | 2017-12-31 14:44 | PN ---
Date of Progress Note: 12/30/2017 Chief Complaint: End-stage renal disease, on dialysis. History Of Present Illness: The patient has a history of diabetic kidney disease. He remains dialysis dependent. He has been dialyzed 3 times per week. He was dialyzed yesterday. Procedure was well tolerated. The patient is euvolemic. Review of Systems: Denies fever, chills. Physical Examination: Lungs: Clear to auscultation bilaterally. Heart: S1, S2. Abdomen: Soft, benign. Extremities: Dressing in place and no edema. Laboratory Data: Hemoglobin 10.0. WBC 17,000. Platelet count is 271,000. Sodium 136, potassium 3.8, chloride 96, CO2 of 25, BUN 61, creatinine 6.4. Magnesium is pending. Impression And Plan: 1. End-stage renal disease. Continue dialysis 3 times per week. The patient has a history of diabetes mellitus. Continue insulin per sliding scale. 2. Anemia in chronic kidney disease. Monitor hemoglobin level and adjust HALIMA. 3. The patient has diabetic foot infection, underwent amputation. Continue wound care and antibiotics. ELMER/DONNA Voice ID: [id number] Report ID: [id number] HEATHER
--- NOTE | 2017-12-31 14:44 | PN ---
Date of Progress Note: 12/31/2017 Subjective: The patient seen and examined. Chart reviewed and case discussed with RN. The patient is doing well. His other toe on the left foot is starting to become purple and likely will start nec rosing. Review of Systems: Negative except as above. Medications: List reviewed. Physical Examination: Vital Signs: Temperature 97.7, heart rate 84, blood pressure 180/86, respirations 18, O2 96% on room air. General: Awake, alert, oriented x3, not in any acute distress, appears older than stated age, ill-ap pearing male. CV: S1, S2. No murmurs. Peripheral pulses are weak. Respiratory: Clear to auscultation bilaterally. No wheezing. Gastrointestinal: Abdomen is soft, nontender, nondistended. Positive bowel sounds. Extremities: No clubbing, cyanosis. Left pedal edema. Musculoskeletal: Right BKA. Skin: Left foot bandaged. Third digit is discolored. There is some drainage in the bandage. No te nderness to palpation. Neurologic: Nonfocal. Laboratory Data: Sodium 139, potassium 3.8, chloride 98, CO2 28, BUN 48, creatinine 6.1, glucose 141 , calcium 8.3, AST 74, ALT 396, albumin 2.1. WBC 14.4, H and H 9.8, 32. Platelets 253, neutrophils 85%. Assessment: A 52-year-old male with: 1.Diabetic infection of the left toes with necrotic gangrenous toes, status post amputation of the f irst, third, and fourth toe with significant amount of abscess. The patient now having worsening tiffanie grene and discoloration of the second toe. He does not have adequate circulation to heal the wound, however, has declined a below-knee amputation. We will continue with IV antibiotics. Cultures are marlo cha Pseudomonas aeruginosa and Haemophilus parainfluenza. We will follow up with VERA michelle. 2.Elevated troponin. No Lds-XY-ooowzmvjf myocardial infarction. No intervention planned. No chest pain. We will continue Plavix. 3.Coronary artery disease [place] artery and [place] heart without angina, stable. 4.Peripheral vascular disease, status post stents. Continue Plavix. 5.Diabetes mellitus type 2 with long-term use of insulin and neuropathy. We will continue sliding s sangita insulin and received Accu-Cheks. 6.End-stage renal disease, on hemodialysis. We will continue dialysis as scheduled. Appreciate Nep hrology input. 7.Generalized anxiety disorder, stable. 8.Hyperlipidemia. 9.Continue statin. 10.Congestive heart failure. Chronic systolic dysfunction, stable. Continue fluid restriction. Mo nitor I's and O's. Daily weights. 11.Essential hypertension, stable. 12.Elevated liver enzymes, improving, likely secondary to sepsis. 13.Sepsis, clinically improved. White count is trending down. Still elevated. We will monitor real sely. The patient will need at least 2 weeks of antibiotics likely through the IV. 14.Gastrointestinal and deep venous thrombosis prophylaxis with PPI and Lovenox. Plan: Refer to rehab. Follow up with ID recommendations. Appreciate consultants input. NEHA Voice ID: [id number] Report ID: [id number]
[2017-12-31] MEDS: ENOXAPARIN 30 MG/0.3 ML SQ SCH (16:35)
[2017-12-31] MEDS: MORPHINE 2 MG/ML SYR IV PRN (21:15)
--- NOTE | 2017-12-31 22:17 | PN ---
Date of Progress Note: 12/31/2017 Chief Complaint: End-stage renal disease. History Of Present Illness: The patient is undergoing dialysis 3 times per week for end-stage renal disease. He has multiple medical problems including peripheral vascular disease, diabetes mellitus, diabetic foot infection. He developed osteomyelitis of the foot, is undergoing management with the wound care and IV antibiotics. The patient is to have transmetatarsal amputation of the foot. He came to the hospital and primarily had a toe amputated. Review of Systems: Denies fever or chills. Physical Examination: Lungs: Clear to auscultation bilaterally. Heart: S1, S2. Abdomen: Soft, benign. Extremities: No edema. Dressing in place. Laboratory Data: WBC 14.4, hemoglobin 9.8, platelet count is 253,000. Sodium 139, potassium 3.8, chloride 98, CO2 of 28, BUN 48, creatinine 6.1, calcium 8.3 , total bilirubin 1.4. Impression And Plan: 1. End-stage renal disease. The patient will have dialysis 3 times per week. 2. Hypertension. Blood pressure control. 3. Diabetes mellitus. Continue insulin. 4. Severe peripheral vascular disease. Workup per primary team and Cardiology. 5. Nonhealing lower extremity wound, diabetic foot infection, osteomyelitis, gangrene. The patient is undergoing transmetatarsal amputation. Evaluation pending from Surgical team. 6. Renal osteodystrophy. Continue renal diet and binders. ELMER/MODAnyi Voice ID: [id number] Report ID: [id number] MTDSadiq
[2018-01-01] MEDS: PIPER/TAZO/NS 2.25gm 2.25 GM/50 ML BAG IVPB SCH ×3 (01:31→17:00)
[2018-01-01] MEDS ORDERED: NA CHLORIDE 0.9% 100 ML ONE (01:31)
[2018-01-01 05:18] LABS: Absolute Lymphocytes (CBC) 0.6 K/uL (0.7-4.9); Absolute Monocytes 0.9 K/uL (0.1-1.3); Absolute Neutrophil 12.3 K/uL (1.8-8.0); Basophils % 1.2 % (0-1.3); Hematocrit 32.3 % (39.6-49.0); Lymphocytes % 4.2 % (15.3-44.8); MCH 27.4 pg (27.0-35.0); MCV 89.1 fL (80-100); MPV 9.8 fL (7.6-11.3); RBC Red Blood Cell Count 3.63 M/uL (4.33-5.43)
[2018-01-01 05:57] LABS: Albumin 2.2 g/dL (3.4-5.0); Bilirubin Total 1.4 mg/dL (0.2-1.0); Potassium 4.1 mmol/L (3.5-5.1); Protein, Total 7.5 g/dL (6.4-8.2)
[2018-01-01] MEDS: INSULIN -REGULAR HUMAN 50 UNIT/0.5 ML ML SQ SCH ×4 (07:30→22:16)
[2018-01-01] MEDS: SEVELAMER CARBONATE 800 MG TABLET PO SCH ×3 (09:51→17:00)
[2018-01-01] MEDS: FUROSEMIDE 40 MG TABLET PO SCH (09:51)
[2018-01-01] MEDS: PREGABALIN 50 MG CAP PO SCH ×2 (09:51→22:16)
[2018-01-01] MEDS: hydrOXYzine HCl 25 MG TAB PO PRN (09:52)
[2018-01-01] MEDS: RANITIDINE 150 MG TABLET PO SCH (09:52)
[2018-01-01] MEDS: MULTIVITAMINS,THERAPEUT 1 TAB PO SCH (09:52)
[2018-01-01] MEDS: CLOPIDOGREL 75 MG TABLET PO SCH (09:52)
[2018-01-01] MEDS: HYDROCODONE/APAP 10/325 TAB PO PRN (09:57)
[2018-01-01] MEDS: COLLAGENASE 30 GM OINTMENT TOP SCH ×2 (15:00→21:00)
[2018-01-01] MEDS: ENOXAPARIN 30 MG/0.3 ML SQ SCH ×2 (17:00→22:17)
[2018-01-01] MEDS: EPOETIN ALFA 10,000 UNIT/ML VIAL IV SCH (18:45)
[2018-01-02] MEDS: PIPER/TAZO/NS 2.25gm 2.25 GM/50 ML BAG IVPB SCH ×2 (00:06→10:18)
--- NOTE | 2018-01-02 02:19 | PN ---
Date of Progress Note: 01/01/2018 Chief Complaint: End-stage renal disease, on dialysis. History Of Present Illness: The patient is scheduled to have dialysis today. The patient has mild f luid overload. He denies PND, orthopnea. Review of Systems: Denies fever, chills. Physical Examination: Lungs: Few crackles at bases. Heart: S1, S2. No pericardial friction rub. Abdomen: Soft, benign. Extremities: No edema. Laboratory Data: WBC 14.4, hemoglobin 10.0, platelet count is 263,000. Chemistries: Sodium 136, po tassium 4.1, chloride 96, CO2 25, BUN 61, creatinine 7.20, calcium 8.4, total protein 7.5, albumin 2. 2. Impression And Plan: 1.End-stage renal disease. Dialysis today with ultrafiltration is scheduled. Continue to monitor b lood pressure during dialysis to prevent intradialytic hypotension. 2.Hypoalbuminemia. Failure to thrive. Continue high protein intake. 3.Diabetes mellitus, on insulin. Adjust insulin per sliding scale. 4.Severe peripheral vascular disease. Workup per primary and Cardiology. 5.Nonhealing lower extremity diabetic foot infection, osteomyelitis, gangrene. The patient is evalu ated by surgical team for possible revision of toe amputation and may need transmetatarsal amputation. 6.Renal osteodystrophy. Continue renal diet and binders. EB/MODL Voice ID: [id number] Report ID: [id number]
[2018-01-02 03:31] VITALS: O2SAT 95
--- NOTE | 2018-01-02 04:28 | DS ---
Date of Discharge: 01/01/2018 Consultants: Dr. Mclaughlin with General Surgery. Procedures: On 12/27/2017, amputation of the first left gangrenous toe, amputation of the left third gangrenous toe with abscess drainage, amputation of the left fourth gangrenous toe with abscess claudine galvan. Consultants: Dr. Pacheco with Nephrology and Dr. Alvarez with Cardiology. Admitting Diagnoses: 1.Necrotic gangrenous toes of the left foot. 2.Elevated troponin levels. 3.Coronary artery disease, mentasta artery and mentasta heart without angina, status post stent. 4.Peripheral vascular disease. 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 6.End-stage renal disease, on hemodialysis. 7.Generalized anxiety disorder. 8.Hyperlipidemia, mixed. 9.Congestive heart failure, systolic dysfunction. 10.Essential hypertension. 11.Elevated liver enzymes. 12.Sepsis. Discharge Diagnoses: 1.Sepsis. 2.Necrotic gangrenous toes of the left foot status post amputation of the first, third, and fourth t oe with abscess. Cultures growing Pseudomonas and Haemophilus parainfluenzae. 3.Elevated troponin, [id number] myocardial infarction. 4.Coronary artery disease, mentasta artery and mentasta heart, without angina. 5.Severe peripheral vascular disease, status post stents. 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 7.End-stage renal disease, on hemodialysis. 8.Generalized anxiety disorder. 9.Mixed hyperlipidemia, on statin. 10.Congestive heart failure, chronic diastolic dysfunction. 11.Essential hypertension. 12.Elevated liver enzymes, likely secondary to sepsis. Hospital Course: The patient is a 52-year-old male with multiple comorbidities including diabetes, h ypertension, end-stage renal disease, on hemodialysis, severe peripheral vascular disease, status pos t right BKA, multiple stents for his vascular disease, who was recently discharged from the hospital, comes in again with gangrenous toes of the left lower extremity. The patient was well aware that hi s circulation in the left leg is very poor. He has BKA, however, has been refusing. His toes have b een progressively appearing discolored and are now gangrenous. He has been following up with wound c are, however, has failed antibiotic therapy, and despite a stent in his right common femoral artery, has developed gangrene. Dr. Mclaughlin with General Surgery was consulted, Dr. Alvarez with Cardiology , and Dr. Pacheco with Nephrology were all consulted for further evaluation. He was started on broa d-spectrum IV antibiotics. His cultures were drawn. The patient was cleared from Dr. Alvarez's yolis oint for surgery as his initial troponin on admission was 3.49. Dr. Alvarez did not feel that this was related to NSTEMI secondary to his sepsis. The patient was treated for sepsis with sepsis bundl e including IV fluids and IV antibiotics. The patient's wound cultures grew Haemophilus parainfluenz a and Pseudomonas aeruginosa. He did well post surgery with amputation of his gangrenous toes on the left foot as mentioned above. The patient was then referred to rehab as he will need upper body str engthening. He again was recommended to have right BKA, however, refused, wished to try conservative treatment first. Couple of days after surgery his remaining digit on the left foot has also started to become discolored. He understands that this will likely also turn to gangrene. The patient's se psis improved. His white count was trending down. He was no longer febrile. He was not hypotensive . The patient was restarted on his Plavix. He was accepted by rehab for inpatient physical therapy and was then discharged in a stable condition. Activity: As per rehab. Medications: As per medication reconciliation list. Followup: Follow up with primary care physician in 1-2 weeks. Follow up with surgeon, Dr. Mclaughlin in 10 days for wound check. Return to ER for worsening condition. Continue wound care with dry dres sings. Diet: Diabetic. Medication: As per medication reconciliation list. Condition: Fair. Physical Examination: General: Awake, alert, oriented, no acute distress. CV: S1, S2. No murmurs. Respiratory: Moving air well bilaterally. Abdomen: Abdomen is soft, nontender, and nondistended. Positive bowel sounds. Extremities: Right BKA. Left foot bandaged with some drainage in the bandage. Neurologic: Nonfocal. Total time spent discharging the patient was 41 minutes. SA/MODL Voice ID: [id number] Report ID: [id number]
[2018-01-02 05:07] LABS: Absolute Lymphocytes (CBC) 0.4 K/uL (0.7-4.9); Absolute Monocytes 0.7 K/uL (0.1-1.3); Absolute Neutrophil 11.9 K/uL (1.8-8.0); Basophils % 0.9 % (0-1.3); Hematocrit 33.2 % (39.6-49.0); Lymphocytes % 2.8 % (15.3-44.8); MCH 27.4 pg (27.0-35.0); MCV 88.9 fL (80-100); MPV 9.5 fL (7.6-11.3); Monocytes % 4.9 % (3.3-12.3); RBC Red Blood Cell Count 3.73 M/uL (4.33-5.43)
[2018-01-02 05:55] LABS: Blood Morphology Comment NOT SEEN (NOT SEEN); Platelet Estimate ADEQ
[2018-01-02 06:22] LABS: Albumin 2.3 g/dL (3.4-5.0); Bilirubin Total 1.9 mg/dL (0.2-1.0); Potassium 3.7 mmol/L (3.5-5.1); Protein, Total 7.9 g/dL (6.4-8.2)
[2018-01-02] MEDS: INSULIN -REGULAR HUMAN 50 UNIT/0.5 ML ML SQ SCH ×2 (07:30→11:30)
[2018-01-02] MEDS: SEVELAMER CARBONATE 800 MG TABLET PO SCH ×2 (08:00→11:37)
[2018-01-02] MEDS ORDERED: LACTOBACILLUS/ACIDOPHILUS TAB PO SCH (09:08)
[2018-01-02] MEDS: HYDROCODONE/APAP 10/325 TAB PO PRN (10:15)
[2018-01-02] MEDS: PREGABALIN 50 MG CAP PO SCH (10:16)
[2018-01-02] MEDS: MULTIVITAMINS,THERAPEUT 1 TAB PO SCH (10:16)
[2018-01-02] MEDS: RANITIDINE 150 MG TABLET PO SCH (10:16)
[2018-01-02] MEDS: FUROSEMIDE 40 MG TABLET PO SCH (10:17)
[2018-01-02] MEDS: CLOPIDOGREL 75 MG TABLET PO SCH (10:17)
[2018-01-02 11:27] VITALS: BP 176/88; TEMP 98.1
--- NOTE | 2018-01-02 18:40 | PN ---
Date of Progress Note: 01/02/2018 Subjective: The patient is seen and examined. Chart reviewed and case discussed with RN. The patie nt states that he had some episode of diarrhea yesterday. Review of Systems: Negative except as above. The patient denies any pain. Medications: Reviewed. Physical Examination: Vital Signs: Temperature 98.1, heart rate 91, blood pressure 176/88, respirations 18, O2 91% on room air. General: Awake, alert, oriented, no acute distress. CV: S1, S2. No murmurs. Respiratory: Moving air well bilaterally. No wheezing. Gastrointestinal: Abdomen is soft, nontender, nondistended. Positive bowel sounds. Extremities: No clubbing, cyanosis, or edema. Musculoskeletal: Right BKA. The patient also has left foot bandaged. Neurologic: Nonfocal. Laboratory Data: Sodium 138, potassium 3.7, chloride 100, CO2 26, BUN is 40, creatinine 5.6, glucose 163, calcium 8.5, AST 49, ALT 245, albumin 2.3. WBC 13.3, H and H 10.2, 33.2, platelets 255, neutro phils 89.4%. Assessment And Plan: This is a 52-year-old male with: 1.Sepsis, resolving. 2.Necrotic gangrenous toes of the left foot, status post amputation with cultures growing Haemophilu s parainfluenza and Pseudomonas aeruginosa. 3.Elevated troponin. 4.Coronary artery disease blackfeet artery and blackfeet heart without angina, status post stent. 5.Severe peripheral vascular disease, status post stents. 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 7.End-stage renal disease, on hemodialysis. 8.Generalized anxiety disorder. 9.Hyperlipidemia. 10.Congestive heart failure. Chronic diastolic dysfunction. 11.Essential hypertension. 12.Elevated liver enzymes, improving. Plan: Discharge to rehab. Start on Lactinex probiotics for diarrhea. The patient will continue IV antibiotics for 2 weeks. Have reassessment of the foot wound. Repeat cultures and may need further antibiotics if not improving. I spoke with Dr. Mclaughlin. The patient needs right BKA due to his poo r circulation, however, the patient refuses right BKA at this time. He understands that the infectio n may spread at this time, however, is not willing to consent to a right BKA. SA/MODL Voice ID: [id number] Report ID: [id number]
[2018-01-03] MEDS ORDERED: VANCOMYCIN 1 GM/250 ML BAG ONE (16:53)
[2018-01-03] MEDS ORDERED: NA CHLORIDE 0.9% 100 ML ONE (16:56)
[2018-01-10] MEDS ORDERED: LIDOCAINE 2% MPF 5 ML VIAL ONE (11:05)
[2018-01-10] MEDS ORDERED: FENTANYL CITR 100 MCG/2 ML ONE (11:05)
[2018-01-10] MEDS ORDERED: PROPOFOL 200 MG/20 ML VIAL IV ONE (11:05)
[2018-01-10] MEDS ORDERED: EPHEDRINE SULF 50 MG/5 ML SYR ONE (11:06)
[2018-01-10] MEDS ORDERED: Phenylephrine HCl 10 MG/ML 1 ML VIAL ONE (11:35)
[2018-01-10] MEDS ORDERED: ROCURONIUM 50 MG/5 ML VIAL IV ONE (11:37)
== END 2018-01-02 11:58 | DRG 853 ==
LOC: ER 10:00 → ERHOLD 11:31 → 3RD-ICU 14:34 → 4TH 12-27 10:40 → 2ND 12-28 18:01
PROVIDERS: ADMIT Family Medicine; ATTEND Family Medicine
PROC: 0Y6W0Z0 Detachment at Left 4th Toe, Complete, Open Approach (ICD-10-PCS; 2017-12-27)
PROC: 0Y6U0Z0 Detachment at Left 3rd Toe, Complete, Open Approach (ICD-10-PCS; 2017-12-27)
PROC: 0Y9N0ZX Drainage of Left Foot, Open Approach, Diagnostic (ICD-10-PCS; 2017-12-27)
PROC: 5A1D70Z Performance of Urinary Filtration, Intermittent, Less than 6 Hours Per Day (ICD-10-PCS; 2017-12-27)
PROC: 0Y6Q0Z0 Detachment at Left 1st Toe, Complete, Open Approach (ICD-10-PCS; principal; 2017-12-27 12:00)
DX: A41.9 Sepsis, unspecified organism (principal); N18.6 End stage renal disease; E11.52 Type 2 diabetes mellitus with diabetic peripheral angiopathy with gangrene; I96 Gangrene, not elsewhere classified; I13.2 Hypertensive heart and chronic kidney disease with heart failure and with stage 5 chronic kidney disease, or end stage renal disease; L02.612 Cutaneous abscess of left foot; M86.672 Other chronic osteomyelitis, left ankle and foot; N25.81 Secondary hyperparathyroidism of renal origin; L03.116 Cellulitis of left lower limb; I24.8 Other forms of acute ischemic heart disease; I50.22 Chronic systolic (congestive) heart failure; B96.3 Hemophilus influenzae [H. influenzae] as the cause of diseases classified elsewhere; B96.5 Pseudomonas (aeruginosa) (mallei) (pseudomallei) as the cause of diseases classified elsewhere; I25.10 Atherosclerotic heart disease of native coronary artery without angina pectoris; Z95.5 Presence of coronary angioplasty implant and graft; Z95.820 Peripheral vascular angioplasty status with implants and grafts; E11.22 Type 2 diabetes mellitus with diabetic chronic kidney disease; Z99.2 Dependence on renal dialysis; F41.1 Generalized anxiety disorder; Z89.511 Acquired absence of right leg below knee; E11.40 Type 2 diabetes mellitus with diabetic neuropathy, unspecified; Z79.4 Long term (current) use of insulin; E78.2 Mixed hyperlipidemia; E88.09 Other disorders of plasma-protein metabolism, not elsewhere classified; R62.7 Adult failure to thrive; E11.69 Type 2 diabetes mellitus with other specified complication; N25.0 Renal osteodystrophy; D63.1 Anemia in chronic kidney disease; Z79.02 Long term (current) use of antithrombotics/antiplatelets; E87.5 Hyperkalemia; E11.65 Type 2 diabetes mellitus with hyperglycemia; K76.1 Chronic passive congestion of liver
CPT/HCPCS: 36415; 71045; 76705; 80048; 80053; 80076; 80202; 82550; 82553; 82962; 83605; 83690; 83735; 83880; 84145; 84484; 85025; 85610; 85652; 85730; 86850; 86900; 86901; 87040; 87070; 87075; 87077; 87184; 87186; 87205; 88305; 88311; 90935; 93005; 93306; 94760; 97163; 99285; J0692; J1650; J2250; J2270; J2370; J2405; J2543; J2710; J3010; J3370; J3590; Q4081

== ENCOUNTER 2018-01-01 11:29 | Inpatient (IN) | payer OTHER, BC ==
--- NOTE | 2018-01-01 13:58 | R.PREADM ---
SCREENING DATE AND TIME 01/01/2018 11:47 (CDT) ANTICIPATED REHAB ADMISSION DATE 01/03/2018 REFERRING FACILITY [facility] REFERRAL DATE AND TIME 01/01/2018 11:47 (CDT) REFERRAL ROOM# [id number] ACUTE ADMIT DATE 12/26/2017 Previous Rehabilitation(s): No. REFERRING PHYSICIAN Bhargav Pradhan REHAB FACILITY [facility] CLINICAL LIAISON Bee Botello PHYSICIAN REVIEWER Dr. Cameron Malcolm M.D. MR# [id number] NAME MARIBEL MIJARES ADDRESS [address] PHONE [facility] [id number] DATE OF 1965 AGE 52 SSN# [id number] GENDER male MARITAL STATUS RACE ADMIT FROM 02 - [facility] PRE-HOSPITAL LIVING SETTING 01 - Home (private home/apt. board/care, assisted living, assisted, transitional living) HOME TYPE AND DETAILS Type of home: single family house # of levels in the residence: 1 # of steps within the residence: 0 # of steps to enter the residence: 0 PRE-HOSPITAL LIVING WITH Family/Relatives FAMILY SUPPORT Yes PRIMARY FAMILY CONTACT NAME KATELYN MIJARES PRIMARY FAMILY CONTACT PHONE PRIMARY FAMILY CONTACT RELATIONSHIP PHONE PRIMARY FAMILY CONTACT ON ADM.? no IS PRIMARY FAMILY CONTACT AUTH. REP.? no 1ST EMERGENCY CONTACT KATELYN MIJARES 1ST CONTACT PHONE 1ST CONTACT RELATIONSHIP PHONE 1ST CONTACT ON ADM. no IS 1ST CONTACT AUTH. REP.? no PHONE 2ND CONTACT ON ADM.? no PATIENT EMPLOYMENT STATUS Retired (for age) PATIENT EMPLOYER No Employer PAYOR INFORMATION: 1ST PAYOR NAME [facility] 1ST PAYOR INJURY/ILLNESS DUE TO ACCIDENT? No ANOTHER [employer] RESPONSIBLE? No PRIMARY REHAB/ACUTE DIAGNOSIS: ONSET DATE 12/26/2017 REHAB IMPAIRMENT CATEGORY (STACI): 11 Amputation, other (Amp/NLE) MEETS 60% rule AFFECTED EXTREMITIES: LLE PRIMARY DIAGNOSIS-RELATED SURGERIES: Amputation of the left first gangrenous toe on 12/27/2017 Amputation of the left third gangrenous toe with abscess drainage on 12/27/2017 Amputation of the left fourth gangrenous toe with abscess drainage on 12/27/2017 COMORBID REHAB/ACUTE DIAGNOSES: - Tier 1 Dependence on renal dialysis [Z992] - Tier 3 Type 2 diabetes mellitus with diabetic polyneuropathy [E1142] - Non-Tiered Cellulitis of unspecified part of limb [G30525] - N/A Peripheral vascular disease Coronary artery disease End stage renal disease Congestive heart failure Sepsis Hyperlipidemia Essential hypertension SUMMARY OF ACUTE HOSPITALIZATION: Pt. is a 52 yo Right-handed male. His impairment category is Amputation of Limb 05 - Other Amputation (05.9). Pre-morbidly, Pt. was independent/mod-I in Social Cognition, Self-Care, Locomotion, Sphincter Control , Transfers Control, and Communication; and he had good Sphincter Control. Currently, he has deficits of Balance, Locomotion, Endurance, Safety Awareness, Transfers Control, an d Self-Care. Pt. is now referred to [facility] for acute in-patient rehabilitation in order to maximize patient's functional independence in activities of daily living, strength, ROM, and mobi lity. Patient has realistic goal of being discharged at assistance level 6-Sharon to reside at Home with Fam jacqueline/Relatives. PAST MEDICAL HISTORY Cellulitis of unspecified part of limb [K67543] Congestive heart failure Coronary artery disease Dependence on renal dialysis [Z992] End stage renal disease Essential hypertension Hyperlipidemia Peripheral vascular disease Sepsis Type 2 diabetes mellitus with diabetic polyneuropathy [E1142] PAST SURGICAL HISTORY: Right BKA PTCA, permcath placement Angioplasty, multiple MEDICATION ALLERGIES: CLINDAMYCIN ENVIRONMENTAL ALLERGIES: None Known - Substance Allergies None Known - Other Allergies None Known CODE STATUS: Full code WEIGHT/HEIGHT/BMI: WEIGHT 139 lbs HEIGHT 5' 4" BMI 23.9 DIET: - Diet Type ADA 1800 - Diet - Solid Texture Regular - Diet - Liquid Texture Regular - Tube Feed N/A SKIN DIAGRAM: Incision on Left foot; extent - small; stage - NS(Not Stageable). Treatment - Per Physician's Orders. REVIEW OF SYSTEMS: - Gen Alert and awake Lying in bed No apparent distress Oriented to: person, time, and place - Vital Signs Temperature: 96.7 F SBP/DBP: 166/78 Pulse: 78 Resp: 12 Vital signs stable, afebrile - CVS RRR - MSK Right BKA VITAL SIGNS Temperature: 96.7 F SBP/DBP: 166/78 Pulse: 78 Resp: 12 Vital signs stable, afebrile CURRENT SPHINCTER CONTROL: Pre-hospital bladder status: continent # of bladder accidents in the last 7 days prior to screenin Pre-hospital bowel status: continent # of bowel accidents in the last 7 days prior to screenin Last Bowel Movement Date: DETAILED CURRENT FUNCTIONAL STATUS: - Bladder accident frequency: Ind - No accidents in the past 7 days - Bowel accident frequency: Ind - No accidents in the past 7 days - Walking score based on distance walked: 0(N/A) - Wheelchair score based on distance traveled: 3(>=150ft) FUNCTIONAL STATUS: - Self-Care A. Eating Ind Ind B. Grooming Ind Sharon C. Bathing Ind sup D. Dressing - Upper Ind Sharon E. Dressing - Lower Ind sup F. Toileting Ind sup - Sphincter Control G: Bladder control Ind Ind H: Bowel control Ind Ind - Transfers Control I. Bed/Chair/Wheelchair Ind Vinny J. Toilet Ind Vinny K. Tub/Shower Ind ADNO - Locomotion L. Walk/Wheelchair (C) Ind sup L. Walk/Wheelchair (W) Ind sup M. Stairs Ind ADNO - Communication N. Comprehension (B) Ind Ind O. Expression (B) Ind Ind - Social Cognition P. Social Interaction Ind Ind Q. Problem Solving Ind Ind R. Memory Ind Ind - Endurance Fair - Balance Fair - Safety Awareness Fair CURRENT FUNC. DEFICITS: Balance, Locomotion, Endurance, Safety Awareness, Transfers Control, and Self-Care THERAPY NOTES FROM ACUTE CARE: Attached. SPECIAL NEEDS: - Safety Concerns Skin breakdown precautions needed due to skin breakdown risk PRECAUTIONS: - Weight Bearing Precaution NWB left LE - Fall Precaution Bed and chair alarm PATIENT NEEDS ACTIVE AND ONGOING THERAPEUTIC INTERVENTION OF MULTIPLE THERAPY DISCIPLINES, INCLUDING: - Orthotics/Prosthetics Prosthetic Evaluation. - Occupational Therapy Evaluate and Treat. - Physical Therapy Evaluate and Treat. PATIENT NEEDS CLOSE MEDICAL SUPERVISION BY A REHABILITATION PHYSICIAN FOR: Bowel and Bladder Management Coordination of Treatment Team Diabetes Management Medical and Co-Morbidity Management Wound Care DVT Management Pain Management PATIENT REQUIRES 24X7 REHAB NURSING FOR MEDICAL AND FUNCTIONAL MGT. OF THE FOLLOWING DEFICITS: ADL's Ambulation Bowel and Bladder Management Communication Disease Management Medication Management Patient/Family Education Providing Safe Environment Skin Integrity Transfers Pain Management PATIENT REQUIRES INTENSIVE, COORDINATED INTERDISCIPLINARY APPROACH TO REHAB: Arranging Home Equipment/Services Discharge Planning Family Intervention/Training Sheep Farmer/Case Management PATIENT REHAB POTENTIAL: Expected level of measurable improvement will be of a practical value to patient's functional capacit y or adaptations to impairments Has a viable Discharge Plan Medically appropriate; condition is sufficiently stable to participate in intensive rehab program Patient is able and expected to receive 3 hours of individualized therapy daily on at least 5 of ever y 7 days Patient's prognosis for significant practical improvement within a reasonable period of time appears Good DISCHARGE PLAN: - Estimated Length of Stay (days) 13. - Consensus on plan Discharge plan has been discussed with primary caregiver. Patient/Family is in agreement with the sussy n. Primary caregiver is in agreement with the plan. - Patient/Family Goals Return home with assistance. - Planned Living Setting Upon Discharge Home, to live with Family/Relatives. RECOMMENDED CARE LEVEL: IRF RECOMMENDATION DETAILS: Recommended Admission to Comprehensive Rehabilitation Program to Increase Functional [place] SCREENER'S COMPLETENESS CONFIRMATION: - Screening Confirmation The patient data collection on this preadmission screening form is finished PHYSICIANS REVIEW AND ADMISSION DETERMINATION Admit - Based on my review of the Pre-Admission Screening results, in my medical judgment and experie nce, I concur with the findings and recommend admission to [facility], as this patient requires an IRF level of care. SIGNATURE PANEL: Clinical Liaison - [electronically] signed by Bee Botello on 01/01/2018 at 12:37 (CDT) Physician Reviewer - [electronically] signed by Dr. Cameron Malcolm M.D. on 01/01/2018 at 12:57 (CDT )
[2018-01-02] MEDS ORDERED: D50W 25 GM/50 ML SYRINGE IV PRN (12:33)
[2018-01-02] MEDS ORDERED: ALPRAZOLAM 1 MG TABLET PO PRN (12:33)
[2018-01-02] MEDS ORDERED: GLUCAGON 1 MG/VIAL IM PRN (12:33)
[2018-01-02] MEDS ORDERED: CYCLOBENZAPRINE 10 MG TAB PO PRN (12:33)
[2018-01-02] MEDS: INSULIN -REGULAR HUMAN 50 UNIT/0.5 ML ML SQ SCH ×2 (16:30→21:00)
[2018-01-02] MEDS: SEVELAMER CARBONATE 800 MG TABLET PO SCH (17:00)
[2018-01-02] MEDS: PIPER/TAZO/NS 2.25gm 2.25 GM/50 ML BAG IVPB SCH (17:21)
[2018-01-02] MEDS: COLLAGENASE 30 GM OINTMENT TOP SCH (20:00)
--- NOTE | 2018-01-02 20:24 | R.HP ---
FACILITY: [facility] ENCOUNTER DATE AND TIME: 01/02/2018 19:20 (CDT) MR#: [id number] NAME MARIBEL MIJARES ADDRESS: [address] [place] [address]: [place]IP [id number] PHONE: DATE OF : 1965 AGE: 52 SSN# [id number] GENDER: Male DEXTERITY Right-handed MARITAL STATUS RACE PRE-HOSPITAL LIVING SETTING 01 - Home (private home/apt. board/care, assisted living, retirement, transitional living) PRE-HOSPITAL LIVING WITH Family/Relatives ENCOUNTER PHYSICIAN: Dr. Cameron Malcolm M.D. REFERRING DOCTOR: sung Pradhan DATE OF ADMISSION: 01/02/2018 12:13 (CDT) REFERRING FACILITY [facility] HOME TYPE AND DETAILS: Type of home: single family house # of levels in the residence: 1 # of steps within the residence: 0 # of steps to enter the residence: 0 ADMISSION DIAGNOSIS: ONSET DATE: 12/26/2017 PRIMARY DIAGNOSIS-RELATED SURGERIES: Amputation of the left first gangrenous toe on 12/27/2017 Amputation of the left third gangrenous toe with abscess drainage on 12/27/2017 Amputation of the left fourth gangrenous toe with abscess drainage on 12/27/2017 SECONDARY/COMORBID DIAGNOSES (TIERED): - Tier 1 Dependence on renal dialysis [Z992] - Tier 3 Type 2 diabetes mellitus with diabetic polyneuropathy [E1142] - Non-Tiered Cellulitis of unspecified part of limb [S21965] - N/A Peripheral vascular disease Coronary artery disease End stage renal disease Congestive heart failure Sepsis Hyperlipidemia Essential hypertension HISTORY OF PRESENT ILLNESS (HPI): Pt. is a 52 yo Right-handed male. His impairment category is Amputation of Limb 05 - Other Amputation (05.9). Pre-morbidly, Pt. was independent/mod-I in Social Cognition, Self-Care, Locomotion, Sphincter Control , Transfers Control, and Communication; and he had good Sphincter Control. Currently, he has deficits of Balance, Locomotion, Endurance, Safety Awareness, Transfers Control, an d Self-Care. Pt. is now referred to [facility] for acute in-patient rehabilitation in order to maximize patient's functional independence in activities of daily living, strength, ROM, and mobi lity. Patient has realistic goal of being discharged at assistance level 6-Sharon to reside at Home with Fam jacqueline/Relatives. MEDICATION ALLERGIES: CLINDAMYCIN ENVIRONMENTAL ALLERGIES: None Known - Substance Allergies None Known - Other Allergies None Known PAST MEDICAL HISTORY: Cellulitis of unspecified part of limb [[id number]] Congestive heart failure Coronary artery disease Dependence on renal dialysis [Z992] End stage renal disease Essential hypertension Hyperlipidemia Peripheral vascular disease Sepsis Type 2 diabetes mellitus with diabetic polyneuropathy [E1142] PAST SURGICAL HISTORY: Right BKA PTCA, permcath placement Angioplasty, multiple FAMILY HISTORY: Family history is not contributory. SOCIAL HISTORY: - Home Living Family/Relatives REVIEW OF SYSTEMS: - Gen No Chills No Fatigue No Fever - Eyes No Double Vision No itchiness - ENMT No Difficulty Swallowing - CVS No Chest Discomfort No Chest Pain No Fatigue No Weight Gain - Resp No Cough No Shortness of Breath - GI Continent No Abdominal Pain No Constipation No Diarrhea - Continent No Kidney Pain No Painful Urination No Urinary Urgency - MSK Joint Pain Muscle Cramps Stiffness - Skin Itching No Rash No Suspicious Lesions - Neuro Coordination Difficulty No Difficulty with Concentration No Memory Loss No Seizures Weakness - Psych No Anxiety No Depression No HIV Exposure No Persistent Infections No Seasonal Allergies - Endo No Cold/Heat Intolerance No Excessive Hunger No Excessive Thirst No Excessive Urination PHYSICAL EXAM - Gen Alert and awake Lying in bed No apparent distress Oriented to: person, time, and place - Skin left lower extremity incisions intact Normacephalic - Eyes No abnormalities - ENMT No abnormalities - Neck No abnormalities - CVS RRR - Chest No abnormalities - Abd Soft - GI Non distended Deferred - No abnormalities - Ext Good hemostasis at left foot surgical site., Right BKA is well bandaged. - MSK 4+/5 weakness in left upper and lower extremity - Neuro No focal deficits - Psych No abnormalities VITAL SIGNS Temperature: 96.7 F SBP/DBP: 166/78 Pulse: 78 Resp: 12 NURSING: - Shower allowing shower - Lab Results blood Sugar Check ACHS PRECAUTIONS: - Weight Bearing Precaution NWB left LE - Fall Precaution Bed and chair alarm ACTIVITIES OOB only with supervision FUNCTIONAL STATUS: - Self-Care A. Eating Ind Ind B. Grooming Ind Sharon C. Bathing Ind sup D. Dressing - Upper Ind Sharon E. Dressing - Lower Ind sup F. Toileting Ind sup - Sphincter Control G: Bladder control Ind Ind H: Bowel control Ind Ind - Transfers Control I. Bed/Chair/Wheelchair Ind Vinny J. Toilet Ind Vinny K. Tub/Shower Ind ADNO - Locomotion L. Walk/Wheelchair (C) Ind sup L. Walk/Wheelchair (W) Ind sup M. Stairs Ind ADNO - Communication N. Comprehension (B) Ind Ind O. Expression (B) Ind Ind - Social Cognition P. Social Interaction Ind Ind Q. Problem Solving Ind Ind R. Memory Ind Ind - Endurance Fair - Balance Fair - Safety Awareness Fair CURRENT FUNC. DEFICITS: Balance, Locomotion, Endurance, Safety Awareness, Transfers Control, and Self-Care ASSESSMENT: Patient has realistic goal of being discharged at assistance level 6-Sharon to reside at Home with Fam jacqueline/Relatives. REHAB PLAN: - Physical Therapy Gait dysfunction - to improve, our physical therapists will perform initial evaluation of pt's status upon admission and devise an individualized program for Gait Training, and Wheel Chair mobility Inability to transfer - to improve, our physical therapists will perform initial evaluation of pt's s tatus upon admission and devise an individualized program for Bed mobility Need for home safety evaluation - to improve, our physical therapists will perform initial evaluation of pt's status upon admission and devise an individualized program for Home Evaluation Need in caregiver upon discharge - to improve, our physical therapists will perform initial evaluatio n of pt's status upon admission and devise an individualized program for Caregiver Training New precaution - to improve, our physical therapists will perform initial evaluation of pt's status u blayne admission and devise an individualized program for Patient precaution education Poor balance - to improve, our physical therapists will perform initial evaluation of pt's status upo n admission and devise an individualized program for Balance Training Poor endurance - to improve, our physical therapists will perform initial evaluation of pt's status u blayne admission and devise an individualized program for Endurance Training Weakness - to improve, our physical therapists will perform initial evaluation of pt's status upon ad mission and devise an individualized program for Aquatic Therapy, Neuromuscular Reeducation, and Stre ngthening Achieving independence - to improve, our physical therapists will perform initial evaluation of pt's status upon admission and devise an individualized program for Community Reintegration Activities - Occupational Therapy ADL deficits - to improve, our occupation therapists will perform initial evaluation of pt's status u blayne admission and devise an individualized program for Bathing, Bed mobility, Community Reintegration , Cooking, Dressing, Eating, Fine Motor Skills, Grooming, Homemaking, Kitchen Mobility, Laundry, Sharon ent Education, Safety Awareness, Splinting - Positioning, Transfers(Toilet, Tub, Shower), and Wheel C hair Management Need for care asst - to improve, our occupation therapists will perform initial evaluation of pt's s tatus upon admission and devise an individualized program for Caregiver Training Weakness - to improve, our occupation therapists will perform initial evaluation of pt's status upon admission and devise an individualized program for Aquatic Therapy, Balance, Endurance, UE ROM, and U E strengthening MEDICAL PLAN: - Diet Type Start ADA 1800 - Diet - Liquid Texture Start Regular - Tube Feed Start N/A - Lab Results blood Sugar Check ACHS - Weight Bearing Precaution NWB left LE - Fall Precaution Bed and chair alarm - N/A Perform Consult Certified Prosthetic for prosthesis construction - Diet - Solid Texture Regular - Shower shower DISCHARGE PLAN: - Estimated Length of Stay (days) 13. - Consensus on plan Discharge plan has been discussed with primary caregiver. Patient/Family is in agreement with the sussy n. Primary caregiver is in agreement with the plan. - Patient/Family Goals Return home with assistance. - Planned Living Setting Upon Discharge Home, to live with Family/Relatives. SIGNATURE PANEL: (CDT)
--- NOTE | 2018-01-02 20:25 | PAPE ---
PATIENT: [facility] MR# [id number] REFERRING DOCTOR sung Pradhan EVALUATION DATE AND TIME 01/02/2018 19:24 (CDT) NAME MARIBEL MIJARES DATE OF 1965 AGE 52 PHONE N# [id number] GENDER male EVALUATING PHYSICIAN Dr. Cameron Malcolm M.D. ADMISSION DIAGNOSIS: ONSET DATE 12/26/2017 SECONDARY/COMORBID DIAGNOSES TIERED: - Tier 1 Dependence on renal dialysis [Z992] - Tier 3 Type 2 diabetes mellitus with diabetic polyneuropathy [E1142] - Non-Tiered Cellulitis of unspecified part of limb [[id number]] - N/A Peripheral vascular disease Coronary artery disease End stage renal disease Congestive heart failure Sepsis Hyperlipidemia Essential hypertension POST-ADMISSION FUNCTIONAL/MEDICAL STATUS: - Bladder Same accident frequency: Ind - No accidents in the past 7 days - Bowel Same accident frequency: Ind - No accidents in the past 7 days - Walking Same score based on distance walked: 0(N/A) - Wheelchair Same score based on distance traveled: 3(>=150ft) STATUS CHANGE EVALUATION: No change in Functional or Medical Status is identified compared with Pre-Admission screening. PATIENT NEEDS CLOSE MEDICAL SUPERVISION BY A REHABILITATION PHYSICIAN FOR: Bowel and Bladder Management Coordination of Treatment Team Diabetes Management Medical and Co-Morbidity Management Wound Care DVT Management Pain Management PATIENT REQUIRES 24X7 REHAB NURSING FOR MEDICAL AND FUNCTIONAL MGT. OF THE FOLLOWING DEFICITS: ADL's Ambulation Bowel and Bladder Management Communication Disease Management Medication Management Patient/Family Education Providing Safe Environment Skin Integrity Transfers Pain Management PATIENT REQUIRES INTENSIVE, COORDINATED INTERDISCIPLINARY APPROACH TO REHAB: Arranging Home Equipment/Services Discharge Planning Family Intervention/Training Immunopathologist/Case Management LIST OF IDENTIFIED AND POTENTIAL PROBLEMS: Alteration in leisure activities Bladder, Incontinence Blood Pressure, Hypertension/hypotension Issues Bowel, Incontinence Diabetes, Hyperglycemia/hypoglycemia Issues Fluid volume overload related to Congestive Heart Failure (CHF) Infection, Actual or Potential Mobility Impaired Pain, Alteration in Comfort Self Care Deficit Skin Integrity, Actual or Potential Urinary Tract Infection (UTI), Actual or Potential PATIENT COULD BE AT RISK FOR COMPLICATIONS FROM ADVERSE MEDICAL CONDITIONS DUE TO HIS/HER COMORBIDITI ES AND THE RIGORS OF THE INTENSIVE REHABILLITATION PROGRAM. METHODS OR INTERVENTIONS TO AVOID COMPLIC ATIONS INCLUDE: - Deep Vein Thrombosis (DVT) Prophylaxis therapy for prevention . Sequential Compression Device (SCD). MARK Pepper. - Bleeding Assess lab values and manage abnormalities. Nursing to teach precautions for anti-coagulation therapy . Wound to be assessed every shift. - Infection Clinical staff to assess and manage the signs and symptoms of infection including fever, redness, war mth, etc. - Urinary Tract Infection - Falls Patient will be evaluated for Fall Precautions and will be placed on Fall Precautions as indicated pe r protocol. - Skin Breakdown Nursing will assess skin daily using assessment tool and will place on Skin Breakdown Precautions as indicated per protocol. - Pain Clinical staff may employ non-medication methods such as massage, distraction, decrease stimulus, etc . as needed. Clinical staff will assess patient's pain level every shift per protocol to assess and e nsure pain management effectiveness. Medications will be given and the pain level re-assessed. PRELIMINARY PLAN OF CARE: - Physical Therapy Patient needs Physical Therapy for a daily minimum of 1.5 hours at least 5 out of 7 days, to improve: Mobility, Strengthening, Transfers, Stretching, ROM, Endurance, Ability to manage stairs, Gait, and Balance. - Speech Therapy Patient needs Speech Therapy for a daily minimum of 0.5 hours at least 5 out of 7 days, to improve: S wallowing, Cognition, Language Skills, and Compensatory Strategies. - Rehabilitation Nursing Patient requires 24x7 Rehabilitation Nursing for: Pain Issues, Identifying and preventing risk factor s, Monitoring and reporting current medical conditions, Assisting with ambulation and transfer, Alberto ting with all ADL-s, Teaching patients about disease process and medications, Family teaching, Provid ing safe environment, Bowel and Bladder Issues, Skin Integrity, and Medication Management. Patient needs Immunopathologist and/or Case Management for: Discharge Planning, Arranging Home Equipmen t or Services, and Family Interventions. - Dietary and Nutrition Services Patient needs Dietary and Nutrition Services for: Adequate Nutrition, Nutritional Supplements, and Nu tritional Education. - Occupational Therapy Patient needs Occupational Therapy for a daily minimum of 1.5 hours at least 5 out of 7 days, to impr ove Activities of Daily Living, including: Eating, Grooming, Bathing, Dressing, Toileting, Toilet Tra nsfers, Community Reintegration, Higher functional activities, Adaptive Equipment, Splinting, Househo ld Tasks, and Other activities as determined. POTENTIAL FUNCTIONAL GOALS FOR PATIENT TO ACHIEVE BY DISCHARGE: - Safety Precaution Patient will remain free from falls or injury at time of discharge. - Bed Mobility Patient will perform bed mobility at 4-Vinny level of assistance. - Transfers Patient will complete transfers from bed to chair at 4-Vinny level of assistance. - Mobility Patient will ambulate 150 ft with 4-Vinny level of assistance with RW. PATIENT REHAB POTENTIAL Expected level of measurable improvement will be of a practical value to patient's functional capacit y or adaptations to impairments Has a viable Discharge Plan Medically appropriate; condition is sufficiently stable to participate in intensive rehab program Patient is able and expected to receive 3 hours of individualized therapy daily on at least 5 of ever y 7 days Patient's prognosis for significant practical improvement within a reasonable period of time appears Good DISCHARGE PLAN: - Estimated Length of Stay (days) 13. - Consensus on plan Discharge plan has been discussed with primary caregiver. Patient/Family is in agreement with the sussy n. Primary caregiver is in agreement with the plan. - Patient/Family Goals Return home with assistance. - Planned Living Setting Upon Discharge Home, to live with Family/Relatives. CONCLUSION ON REHABILITATION NECESSITY: I have evaluated patient's pre-admission functional status and, comparing it to the patient's post-ad mission functional status now, I conclude that the pre-admission assessment was accurate. Patient's c ondition on admission supports the medical necessity of admission to IR[facility]. It is safe to proceed with patient's therapy program. SIGNATURE PANEL: (CDT)
[2018-01-02] MEDS: PREGABALIN 50 MG CAP PO SCH (21:10)
[2018-01-02] MEDS: APIXABAN 2.5 MG TABLET PO SCH (21:10)
--- NOTE | 2018-01-03 00:42 | PN ---
Date of Progress Note: 01/02/2018 Chief Complaint: End-stage renal disease, on dialysis. History Of Present Illness: The patient has history of diabetic kidney disease. He is dialysis depe ndent. He received dialysis yesterday. Electrolytes had been controlled. The patient has history o f hypoalbuminemia, failure to thrive, and the patient was started on high protein intake. Review of Systems: Denies fever or chills. Physical Examination: Lungs: clear to auscultation bilaterally. Heart: S1, S2. Abdomen: Soft, benign. Extremities: No edema. Laboratory Data: Hemoglobin 10.0. Chemistry showed sodium 136, potassium 4.1, chloride 96, CO2 25, BUN 61, creatinine 7.2, albumin 2.2, total protein 7.5. Impression And Plan: 1.End-stage renal disease. Next dialysis tomorrow. Continue low-sodium diet, p.o. fluid restrictio n. 2.Hypoalbuminemia. Failure to thrive. Continue high-protein intake. 3.Diabetes mellitus, on insulin. Adjust insulin per sliding scale. 4.Severe peripheral vascular disease. The patient had workup done with Cardiology. 5.Nonhealing lower extremity diabetic foot infection and osteomyelitis and gangrene. The patient wa s evaluated by surgical team for possible revision of toe amputation. Continue antibiotic and wound care. 6.Renal osteodystrophy. Adjust binders as needed. Monitor phosphorus level. ELMER/DONNA Voice ID: [id number] Report ID: [id number]
[2018-01-03] MEDS: PIPER/TAZO/NS 2.25gm 2.25 GM/50 ML BAG IVPB SCH ×3 (01:34→20:34)
[2018-01-03] MEDS: HYDROCODONE/APAP 10/325 TAB PO PRN ×3 (01:54→14:41)
[2018-01-03] MEDS: METOPROLOL TAR 25 MG TAB PO SCH (05:02)
[2018-01-03 05:36] VITALS: BMI 23.1
[2018-01-03 06:39] LABS: Albumin 2.2 g/dL (3.4-5.0); Magnesium 2.3 mg/dL (1.8-2.4); Potassium 4.1 mmol/L (3.5-5.1); Prealbumin 11.8 mg/dL (20-40)
[2018-01-03 06:42] LABS: Absolute Lymphocytes (CBC) 0.8 K/uL (0.7-4.9); Absolute Monocytes 0.9 K/uL (0.1-1.3); Basophils % 0.8 % (0-1.3); Eosinophils % 1.9 % (0-4.4); Hematocrit 32.3 % (39.6-49.0); MCH 26.8 pg (27.0-35.0); MCV 88.6 fL (80-100); MPV 10.1 fL (7.6-11.3); Monocytes % 7.5 % (3.3-12.3); RBC Red Blood Cell Count 3.65 M/uL (4.33-5.43)
[2018-01-03] MEDS: INSULIN -REGULAR HUMAN 50 UNIT/0.5 ML ML SQ SCH ×4 (07:30→20:00)
[2018-01-03] MEDS: LISINOPRIL 10 MG TAB PO SCH (08:00)
[2018-01-03] MEDS: SEVELAMER CARBONATE 800 MG TABLET PO SCH ×3 (08:09→16:49)
[2018-01-03] MEDS: MULTIVITAMINS,THERAPEUT 1 TAB PO SCH (08:10)
[2018-01-03] MEDS: RANITIDINE 150 MG TABLET PO SCH (08:10)
[2018-01-03] MEDS: PREGABALIN 50 MG CAP PO SCH ×2 (08:10→20:33)
[2018-01-03] MEDS: CLOPIDOGREL 75 MG TABLET PO SCH (08:10)
[2018-01-03] MEDS: FUROSEMIDE 40 MG TABLET PO SCH (08:11)
[2018-01-03] MEDS: APIXABAN 2.5 MG TABLET PO SCH ×2 (08:11→20:35)
[2018-01-03] MEDS: COLLAGENASE 30 GM OINTMENT TOP SCH ×2 (08:23→20:35)
[2018-01-03] MEDS ORDERED: HYDROCORTISONE 0.5% CREAM 30 GM TOP PRN (09:54)
[2018-01-03] MEDS: hydrOXYzine HCl 25 MG TAB PO PRN (10:09)
[2018-01-03] MEDS ORDERED: MANNITOL 25% 12.5 GM/50 ML VIAL IV PRN (13:55)
[2018-01-03] MEDS ORDERED: NA CHLORIDE 0.9% 1,000 ML IV PRN (13:55)
[2018-01-03] MEDS ORDERED: ALBUMIN HUMAN 25% 50 ML IV SCH (14:00)
--- NOTE | 2018-01-03 15:50 | FAST ---
ENCOUNTER DATE AND TIME: 01/03/2018 08:00 (CDT) NAME MARIBEL MIJARES DATE OF : 1965 DATE OF ADMISSION: 01/02/2018 12:13 (CDT) PHONE: AGE: 52 N# [id number] GENDER: Male ENCOUNTER PHYSICIAN: Dr. Cameron Malcolm M.D. ADMISSION DIAGNOSIS: - Amputation of Limb 05 - Other Amputation (05.9) EATING: EATING - STEP 1: Does the patient require assistance when eating? No. EATING - SCORE: 7-IND GROOMING: Comb/brush hair Oral care Wash, rinse, and dry face Wash, rinse, and dry hands GROOMING - STEP 1: Does the patient require assistance when grooming? No. GROOMING - SCORE: 7-IND BATHING: Abdomen Buttocks Chest Left arm Left upper leg Perineal area Right arm Right upper leg BATHING - STEP 1: Does the patient require assistance when bathing? Yes. BATHING - STEP 2: Does the patient require the assistance of a helper? Yes. BATHING - STEP 3: How much assistance does the patient require from the helper? Only incidental help such as placement of a wash cloth in his/her hand a few times as s/he bathes OR help to bathe just one or two areas of the body BATHING - SCORE: 4-MIN DRESSING - UPPER BODY: T-shirt/pullover shirt (four steps) ARTICLES SCORE Total number of steps: 4 DRESSING - UPPER BODY - STEP 1: Does the patient require help when dressing above the waist? Yes. DRESSING - UPPER BODY - STEP 2: Does the patient require the assistance of a helper? Yes. DRESSING - UPPER BODY - STEP 3: Does the helper touch the patient while dressing? No. DRESSING - UPPER BODY - SCORE: 5-SUP DRESSING - LOWER BODY: Elastic waist pants (three steps) Underwear (three steps) ARTICLES SCORE Total number of steps: 6 DRESSING - LOWER BODY - STEP 1: Does the patient require help when dressing below the waist? Yes. DRESSING - LOWER BODY - STEP 2: Does the patient require the assistance of a helper? Yes. DRESSING - LOWER BODY - STEP 3: Does the helper touch the patient while dressing? No. DRESSING - LOWER BODY - SCORE: 5-SUP TOILETING: Activity did not occur on this shift TOILETING - SCORE: 0-UNK BLADDER MANAGEMENT: Activity did not occur on this shift BLADDER MANAGEMENT - SCORE: 7-IND BOWEL MANAGEMENT: Activity did not occur on this shift BOWEL MANAGEMENT - SCORE: 7-IND TRANSFERS: BED, CHAIR, WHEELCHAIR: Activity did not occur on this shift TRANSFERS: BED, CHAIR, WHEELCHAIR - SCORE: 0-UNK TRANSFERS: TOILET: Activity did not occur on this shift TRANSFERS: TOILET - SCORE: 0-UNK TRANSFERS: SHOWER: Activity did not occur on this shift TRANSFERS: SHOWER - SCORE: 0-UNK TRANSFERS: TUB: TRANSFERS: TUB - STEP 1: Does the patient require assistance with tub transfers? Yes. TRANSFERS: TUB - STEP 2: Does the patient require the assistance of a helper? Yes. TRANSFERS: TUB - STEP 3: How much assistance does the patient require from the helper? Incidental help such as contact guardin g or steadying, OR help to lift one leg into the tub TRANSFERS: TUB - SCORE: 4-MIN LOCOMOTION: WALK: Activity did not occur on this shift LOCOMOTION: WALK - SCORE: 0-UNK LOCOMOTION: WHEELCHAIR: Activity did not occur on this shift LOCOMOTION: WHEELCHAIR - SCORE: 0-UNK LOCOMOTION: STAIRS: Activity did not occur on this shift LOCOMOTION: STAIRS - SCORE: 0-UNK COMPREHENSION: COMPREHENSION: TYPE: Both COMPREHENSION - STEP 1: Does the patient require help to understand complex and abstract ideas (such as current events, finan caitlyn, discharge planning, medical issues, relationships, etc)? No. COMPREHENSION - STEP 2: Does the patient need extra time, require an assistive device (such as glasses, hearing aids, or an a ugmentative communication system), OR does s/he have mild difficulty expressing complex and abstract ideas (including mild dysarthria or mild word-finding problems)? No. COMPREHENSION - SCORE: 7-IND EXPRESSION EXPRESSION: TYPE: Both EXPRESSION - STEP 1: Does the patient require help expressing complex and abstract ideas (such as current events, finances , discharge planning, medical issues, relationships, etc)? No. EXPRESSION - STEP 2: Does the patient need extra time, require an assistive device (such as augmentive communication syste m or a communication board), OR does s/he have mild difficulty expressing complex and abstract ideas (including mild dysarthria or mild word-find problems)? No. EXPRESSION - SCORE: 7-IND SOCIAL INTERACTION: SOCIAL INTERACTION - STEP 1: Does the patient require a helper to interact with others in social and therapeutic situations? No. SOCIAL INTERACTION - STEP 2: Does the patient need extra time in social situations, OR does s/he interact with staff, other patien ts, and family members ONLY in structured environments, OR does s/he require medication for social in teraction? Yes, patient needs extra time SOCIAL INTERACTION - SCORE: 6-SRAVANTHI PROBLEM SOLVING: PROBLEM SOLVING - STEP 1: Does the patient need help to solve complex problems such as managing a checking account or confronti ng interpersonal problems? No. PROBLEM SOLVING - STEP 2: Does the patient require extra time to make decisions or solve problems, OR does s/he have slight dif ficulty reading, initiating, or self-correcting in unfamiliar situations? No. PROBLEM SOLVING - SCORE: 7-IND MEMORY: MEMORY - STEP 1: Does the patient need help to remember frequently encountered people, daily routines, and executing r equests? No. MEMORY - STEP 2: Does the patient have slight difficulty recognizing frequently encountered people, daily routines, or executing requests without the need for repetition or using self-initiated or environmental cues to remember? No. MEMORY - SCORE: 7-IND SIGNATURE PANEL: The following modified sections: Eating - Score, Grooming - Score, Bathing - Score, Dressing - Upper Body - Score, Dressing - Lower Body - Score, Toileting - Score, Transfers: Bed, Chair, Wheelchair - S core, Transfers: Toilet - Score, Transfers: Shower - Score, Transfers: Tub - Score, Comprehension - S core, Expression - Score, Social Interaction - Score, Problem Solving - Score, Memory - Score were [e lectronically] signed by Ida Ames OT on MonJan 03 2018 14:50:38 GMT-0500 ([place])
--- NOTE | 2018-01-03 15:51 | FAST ---
SHIFT START DATE/TIME: 01/03/2018 07:00 (CDT) SHIFT END DATE/TIME: 01/03/2018 19:00 (CDT) NAME MARIBEL MIJARES DATE OF : 1965 DATE OF ADMISSION: 01/02/2018 12:13 (CDT) PHONE: AGE: 52 N# [id number] GENDER: Male ENCOUNTER PHYSICIAN: Dr. Cameron Malcolm M.D. ADMISSION DIAGNOSIS: - Amputation of Limb 05 - Other Amputation (05.9) EATING: EATING - STEP 1: Does the patient require assistance when eating? Yes. EATING - STEP 2: Does the patient require the assistance of a helper? No, patient only requires an assistive device, O R s/he takes more than reasonable time to eat, OR there is a safety concern, OR s/he requires modifie d food consistency EATING - SCORE: 6-SRAVANTHI GROOMING: Comb/brush hair Oral care GROOMING - STEP 1: Does the patient require assistance when grooming? Yes. GROOMING - STEP 2: Does the patient require the assistance of a helper? Yes. GROOMING - STEP 3: How much assistance does the patient require from the helper? Only prior equipment preparation/set up from the helper GROOMING - SCORE: 5-SUP BATHING: Activity did not occur on this shift BATHING - SCORE: 0-UNK DRESSING - UPPER BODY: Activity did not occur on this shift ARTICLES SCORE Total number of steps: 0 DRESSING - UPPER BODY - SCORE: 0-UNK DRESSING - LOWER BODY: Activity did not occur on this shift ARTICLES SCORE Total number of steps: 0 DRESSING - LOWER BODY - SCORE: 0-UNK TOILETING: TOILETING - STEP 1: Does the patient require assistance with toileting? Yes. TOILETING - STEP 2: Does the patient require the assistance of a helper? Yes. TOILETING - STEP 3: How much assistance does the patient require from the helper? Hands-on assistance from the helper TOILETING - STEP 4: Of the 3 tasks: 1) Adjusting clothing prior to use, 2) Cleansing of perineal area, 3) Adjusting clot dinorah after use; How many tasks does the patient perform WITHOUT assistance of the helper? Two tasks TOILETING - SCORE: 3-MOD BLADDER MANAGEMENT: Patient is on renal dialysis or peritoneal dialysis and no voiding activity BLADDER MANAGEMENT - SCORE: 7-IND BOWEL MANAGEMENT: Activity did not occur on this shift BOWEL MANAGEMENT - SCORE: 7-IND TRANSFERS: BED, CHAIR, WHEELCHAIR: TRANSFERS: BED, CHAIR, WHEELCHAIR - STEP 1: Does the patient require assistance with bed, chair, or wheelchair transfers? Yes. TRANSFERS: BED, CHAIR, WHEELCHAIR - STEP 2: Does the patient require the assistance of a helper? Yes. TRANSFERS: BED, CHAIR, WHEELCHAIR - STEP 3: How much assistance does the patient require from the helper? Steadying/guiding assistance TRANSFERS: BED, CHAIR, WHEELCHAIR - SCORE: 4-MIN TRANSFERS: TOILET: TRANSFERS: TOILET - STEP 1: Does the patient require assistance with toilet transfers? Yes. TRANSFERS: TOILET - STEP 2: Does the patient require the assistance of a helper? Yes. TRANSFERS: TOILET - STEP 3: How much assistance does the patient require from the helper? Patient performs half or more of the tr ansferring tasks TRANSFERS: TOILET - STEP 4: Does the patient need only incidental help such as contact guard or steadying during toilet transfer? Yes. TRANSFERS: TOILET - SCORE: 4-MIN TRANSFERS: SHOWER: Activity did not occur on this shift TRANSFERS: SHOWER - SCORE: 0-UNK TRANSFERS: TUB: Activity did not occur on this shift TRANSFERS: TUB - SCORE: 0-UNK LOCOMOTION: WALK: Activity did not occur on this shift LOCOMOTION: WALK - SCORE: 0-UNK LOCOMOTION: WHEELCHAIR: Activity did not occur on this shift LOCOMOTION: WHEELCHAIR - SCORE: 0-UNK COMPREHENSION: COMPREHENSION - SCORE: 0-UNK EXPRESSION EXPRESSION - SCORE: 0-UNK SOCIAL INTERACTION: SOCIAL INTERACTION - SCORE: 0-UNK PROBLEM SOLVING: PROBLEM SOLVING - SCORE: 0-UNK MEMORY: MEMORY - SCORE: 0-UNK SIGNATURE PANEL: The following modified sections: Eating - Score, Grooming - Score, Bathing - Score, Dressing - Upper Body - Score, Dressing - Lower Body - Score, Toileting - Score, Bladder Management - Score, Bowel Man agement - Score, Transfers: Bed, Chair, Wheelchair - Score, Transfers: Toilet - Score, Transfers: Susie wer - Score, Transfers: Tub - Score, Locomotion: Walk - Score, Locomotion: Wheelchair - Score, Compre hension - Score, Expression - Score, Social Interaction - Score, Problem Solving - Score, Memory - Sc ore were [electronically] signed by Manpreet Kaur on MonJan 03 2018 14:50:53 GMT-0500 (Central Daylight Time)
[2018-01-03] MEDS: EPOETIN ALFA 10,000 UNIT/ML VIAL IV SCH (16:45)
--- NOTE | 2018-01-03 22:53 | PN ---
Date of Progress Note: 01/03/2018 Chief Complaint: End-stage renal disease, on dialysis. The patient is undergoing treatment 3 times per week on Monday, Monday, Monday. He is scheduled t o have dialysis with ultrafiltration. The patient does not have fluid overload. Ultrafiltration was ordered for maintenance volume control. The patient has history of hypoalbuminemia, failure to thrive. The patient is started on high-protei n intake. The patient has nonhealing wounds, underwent toe amputation for gangrene and osteomyelitis . Review of Systems: Denies fever, chills, nausea, vomiting. Physical Examination: Lungs: Few crackles at bases. Heart: S1, S2. Abdomen: Soft, benign. Extremities: No edema. Laboratory Data: Potassium 4.1, chloride 96, hemoglobin 10.0, creatinine 7.2, BUN 61. Impression And Plan: 1.End-stage renal disease. Dialysis is scheduled today with ultrafiltration. Monitor blood pressur e during dialysis. Adjust ultrafiltration goal accordingly. 2.Hypertension. Continue blood pressure medication. 3.Severe peripheral vascular disease. The patient had a workup done with Cardiology. 4.Nonhealing lower extremity diabetic foot infection, osteomyelitis, and gangrene. The patient unde rwent toe amputation. Follow up with Surgery and Wound Care. 5.Renal osteodystrophy. Continue renal diet and binders. EB/MODL Voice ID: [id number] Report ID: [id number]
[2018-01-04] MEDS: PIPER/TAZO/NS 2.25gm 2.25 GM/50 ML BAG IVPB SCH ×3 (01:59→16:45)
--- NOTE | 2018-01-04 03:13 | FAST ---
SHIFT START DATE/TIME: 01/03/2018 19:00 (CDT) SHIFT END DATE/TIME: 01/04/2018 07:00 (CDT) NAME MARIBEL MIJARES DATE OF : 1965 DATE OF ADMISSION: 01/02/2018 12:13 (CDT) PHONE: AGE: 52 N# [id number] GENDER: Male ENCOUNTER PHYSICIAN: Dr. Cameron Malcolm M.D. ADMISSION DIAGNOSIS: - Amputation of Limb 05 - Other Amputation (05.9) EATING: Activity did not occur on this shift EATING - SCORE: 0-UNK GROOMING: Activity did not occur on this shift GROOMING - SCORE: 0-UNK BATHING: Activity did not occur on this shift BATHING - SCORE: 0-UNK DRESSING - UPPER BODY: Patient is not dressing in public clothing ARTICLES SCORE Total number of steps: 0 DRESSING - UPPER BODY - SCORE: 0-UNK DRESSING - LOWER BODY: Patient is not dressing in public clothing ARTICLES SCORE Total number of steps: 0 DRESSING - LOWER BODY - SCORE: 0-UNK TOILETING: TOILETING - STEP 1: Does the patient require assistance with toileting? Yes. TOILETING - STEP 2: Does the patient require the assistance of a helper? Yes. TOILETING - STEP 3: How much assistance does the patient require from the helper? Only supervision TOILETING - SCORE: 5-SUP BLADDER MANAGEMENT: Patient is on renal dialysis or peritoneal dialysis and no voiding activity BLADDER MANAGEMENT - SCORE: 7-IND BOWEL MANAGEMENT: Activity did not occur on this shift BOWEL MANAGEMENT - SCORE: 7-IND TRANSFERS: BED, CHAIR, WHEELCHAIR: TRANSFERS: BED, CHAIR, WHEELCHAIR - STEP 1: Does the patient require assistance with bed, chair, or wheelchair transfers? Yes. TRANSFERS: BED, CHAIR, WHEELCHAIR - STEP 2: Does the patient require the assistance of a helper? Yes. TRANSFERS: BED, CHAIR, WHEELCHAIR - STEP 3: How much assistance does the patient require from the helper? Steadying/guiding assistance TRANSFERS: BED, CHAIR, WHEELCHAIR - SCORE: 4-MIN TRANSFERS: TOILET: Activity did not occur on this shift TRANSFERS: TOILET - SCORE: 0-UNK TRANSFERS: SHOWER: Activity did not occur on this shift TRANSFERS: SHOWER - SCORE: 0-UNK TRANSFERS: TUB: Activity did not occur on this shift TRANSFERS: TUB - SCORE: 0-UNK LOCOMOTION: WALK: Activity did not occur on this shift LOCOMOTION: WALK - SCORE: 0-UNK LOCOMOTION: WHEELCHAIR: Activity did not occur on this shift LOCOMOTION: WHEELCHAIR - SCORE: 0-UNK COMPREHENSION: COMPREHENSION: TYPE: Both COMPREHENSION - STEP 1: Does the patient require help to understand complex and abstract ideas (such as current events, finan caitlyn, discharge planning, medical issues, relationships, etc)? No. COMPREHENSION - STEP 2: Does the patient need extra time, require an assistive device (such as glasses, hearing aids, or an a ugmentative communication system), OR does s/he have mild difficulty expressing complex and abstract ideas (including mild dysarthria or mild word-finding problems)? Yes. COMPREHENSION - SCORE: 6-SRAVANTHI EXPRESSION EXPRESSION - STEP 1: Does the patient require help expressing complex and abstract ideas (such as current events, finances , discharge planning, medical issues, relationships, etc)? No. EXPRESSION - STEP 2: Does the patient need extra time, require an assistive device (such as augmentive communication syste m or a communication board), OR does s/he have mild difficulty expressing complex and abstract ideas (including mild dysarthria or mild word-find problems)? Yes. EXPRESSION - SCORE: 6-SRAVANTHI SOCIAL INTERACTION: SOCIAL INTERACTION - STEP 1: Does the patient require a helper to interact with others in social and therapeutic situations? No. SOCIAL INTERACTION - STEP 2: Does the patient need extra time in social situations, OR does s/he interact with staff, other patien ts, and family members ONLY in structured environments, OR does s/he require medication for social in teraction? Yes, patient needs extra time SOCIAL INTERACTION - SCORE: 6-SRAVANTHI PROBLEM SOLVING: PROBLEM SOLVING - STEP 1: Does the patient need help to solve complex problems such as managing a checking account or confronti ng interpersonal problems? No. PROBLEM SOLVING - STEP 2: Does the patient require extra time to make decisions or solve problems, OR does s/he have slight dif ficulty reading, initiating, or self-correcting in unfamiliar situations? Yes, patient needs extra ti me. PROBLEM SOLVING - SCORE: 6-SRAVANTHI MEMORY: MEMORY - STEP 1: Does the patient need help to remember frequently encountered people, daily routines, and executing r equests? No. MEMORY - STEP 2: Does the patient have slight difficulty recognizing frequently encountered people, daily routines, or executing requests without the need for repetition or using self-initiated or environmental cues to remember? Yes. MEMORY - SCORE: 6-SRAVANTHI
[2018-01-04] MEDS: METOPROLOL TAR 25 MG TAB PO SCH (05:15)
[2018-01-04] MEDS: HYDROCORTISONE 1 % CREAM 30GM TOP PRN (07:27)
[2018-01-04] MEDS: COLLAGENASE 30 GM OINTMENT TOP SCH ×2 (07:27→19:59)
[2018-01-04] MEDS: HYDROCODONE/APAP 10/325 TAB PO PRN ×3 (07:28→17:38)
[2018-01-04] MEDS: INSULIN -REGULAR HUMAN 50 UNIT/0.5 ML ML SQ SCH ×4 (07:30→20:24)
[2018-01-04] MEDS: SEVELAMER CARBONATE 800 MG TABLET PO SCH ×3 (07:57→16:53)
[2018-01-04] MEDS: LISINOPRIL 10 MG TAB PO SCH (07:57)
[2018-01-04] MEDS: RANITIDINE 150 MG TABLET PO SCH (07:59)
[2018-01-04] MEDS: CLOPIDOGREL 75 MG TABLET PO SCH (08:00)
[2018-01-04] MEDS: PREGABALIN 50 MG CAP PO SCH ×2 (08:00→19:59)
[2018-01-04] MEDS: FUROSEMIDE 40 MG TABLET PO SCH (08:00)
[2018-01-04] MEDS: APIXABAN 2.5 MG TABLET PO SCH ×2 (08:01→19:59)
[2018-01-04] MEDS: MULTIVITAMINS,THERAPEUT 1 TAB PO SCH (08:01)
[2018-01-04] MEDS: hydrOXYzine HCl 25 MG TAB PO PRN (11:56)
--- NOTE | 2018-01-04 15:40 | FAST ---
SHIFT START DATE/TIME: 01/04/2018 07:00 (CDT) SHIFT END DATE/TIME: 01/04/2018 19:00 (CDT) NAME MARIBEL MIJARES DATE OF : 1965 DATE OF ADMISSION: 01/02/2018 12:13 (CDT) PHONE: AGE: 52 N# [id number] GENDER: Male ENCOUNTER PHYSICIAN: Dr. Cameron Malcolm M.D. ADMISSION DIAGNOSIS: - Amputation of Limb 05 - Other Amputation (05.9) EATING: EATING - STEP 1: Does the patient require assistance when eating? Yes. EATING - STEP 2: Does the patient require the assistance of a helper? No, patient only requires an assistive device, O R s/he takes more than reasonable time to eat, OR there is a safety concern, OR s/he requires modifie d food consistency EATING - SCORE: 6-SRAVANTHI GROOMING: Comb/brush hair Oral care GROOMING - STEP 1: Does the patient require assistance when grooming? Yes. GROOMING - STEP 2: Does the patient require the assistance of a helper? No. The patient only requires an assistive devic e, OR takes more than reasonable time to groom, OR there is a concern for safety as the patient groom s GROOMING - SCORE: 6-SRAVANTHI BATHING: Activity did not occur on this shift BATHING - SCORE: 0-UNK DRESSING - UPPER BODY: Activity did not occur on this shift ARTICLES SCORE Total number of steps: 0 DRESSING - UPPER BODY - SCORE: 0-UNK DRESSING - LOWER BODY: Activity did not occur on this shift ARTICLES SCORE Total number of steps: 0 DRESSING - LOWER BODY - SCORE: 0-UNK TOILETING: Activity did not occur on this shift TOILETING - SCORE: 0-UNK BLADDER MANAGEMENT: Patient is on renal dialysis or peritoneal dialysis and no voiding activity BLADDER MANAGEMENT - SCORE: 7-IND BOWEL MANAGEMENT: Activity did not occur on this shift BOWEL MANAGEMENT - SCORE: 7-IND TRANSFERS: BED, CHAIR, WHEELCHAIR: TRANSFERS: BED, CHAIR, WHEELCHAIR - STEP 1: Does the patient require assistance with bed, chair, or wheelchair transfers? Yes. TRANSFERS: BED, CHAIR, WHEELCHAIR - STEP 2: Does the patient require the assistance of a helper? Yes. TRANSFERS: BED, CHAIR, WHEELCHAIR - STEP 3: How much assistance does the patient require from the helper? Steadying/guiding assistance TRANSFERS: BED, CHAIR, WHEELCHAIR - SCORE: 4-MIN TRANSFERS: TOILET: Activity did not occur on this shift TRANSFERS: TOILET - SCORE: 0-UNK TRANSFERS: SHOWER: Activity did not occur on this shift TRANSFERS: SHOWER - SCORE: 0-UNK TRANSFERS: TUB: Activity did not occur on this shift TRANSFERS: TUB - SCORE: 0-UNK LOCOMOTION: WALK: Activity did not occur on this shift LOCOMOTION: WALK - SCORE: 0-UNK LOCOMOTION: WHEELCHAIR: Activity did not occur on this shift LOCOMOTION: WHEELCHAIR - SCORE: 0-UNK COMPREHENSION: COMPREHENSION - SCORE: 0-UNK EXPRESSION EXPRESSION - SCORE: 0-UNK SOCIAL INTERACTION: SOCIAL INTERACTION - SCORE: 0-UNK PROBLEM SOLVING: PROBLEM SOLVING - SCORE: 0-UNK MEMORY: MEMORY - SCORE: 0-UNK SIGNATURE PANEL: The following modified sections: Eating - Score, Grooming - Score, Bathing - Score, Dressing - Upper Body - Score, Dressing - Lower Body - Score, Toileting - Score, Bladder Management - Score, Bowel Man agement - Score, Transfers: Bed, Chair, Wheelchair - Score, Transfers: Toilet - Score, Transfers: Susie wer - Score, Transfers: Tub - Score, Locomotion: Walk - Score, Locomotion: Wheelchair - Score, Compre hension - Score, Expression - Score, Social Interaction - Score, Problem Solving - Score, Memory - Sc ore were [electronically] signed by Manpreet Kaur on MonJan 04 2018 14:40:27 GMT-0500 (Central Daylight Time)
--- NOTE | 2018-01-04 16:02 | FAST ---
ENCOUNTER DATE AND TIME: 01/02/2018 08:00 (CDT) NAME MARIBEL MIJARES DATE OF : 1965 DATE OF ADMISSION: 01/02/2018 12:13 (CDT) PHONE: AGE: 52 SSN# [id number] GENDER: Male ENCOUNTER PHYSICIAN: Dr. Cameron Malcolm M.D. ADMISSION DIAGNOSIS: - Amputation of Limb 05 - Other Amputation (05.9) EATING: Activity did not occur on this shift EATING - SCORE: 0-UNK GROOMING: Activity did not occur on this shift GROOMING - SCORE: 0-UNK BATHING: Activity did not occur on this shift BATHING - SCORE: 0-UNK DRESSING - UPPER BODY: Activity did not occur on this shift Patient is not dressing in public clothing ARTICLES SCORE Total number of steps: 0 DRESSING - UPPER BODY - SCORE: 0-UNK DRESSING - LOWER BODY: Activity did not occur on this shift Patient is not dressing in public clothing ARTICLES SCORE Total number of steps: 0 DRESSING - LOWER BODY - SCORE: 0-UNK TOILETING: Activity did not occur on this shift TOILETING - SCORE: 0-UNK BLADDER MANAGEMENT: Activity did not occur on this shift BLADDER MANAGEMENT - SCORE: 7-IND BOWEL MANAGEMENT: Activity did not occur on this shift BOWEL MANAGEMENT - SCORE: 7-IND TRANSFERS: BED, CHAIR, WHEELCHAIR: TRANSFERS: BED, CHAIR, WHEELCHAIR - STEP 1: Does the patient require assistance with bed, chair, or wheelchair transfers? Yes. TRANSFERS: BED, CHAIR, WHEELCHAIR - STEP 2: Does the patient require the assistance of a helper? Yes. TRANSFERS: BED, CHAIR, WHEELCHAIR - STEP 3: How much assistance does the patient require from the helper? Lifting of the patient TRANSFERS: BED, CHAIR, WHEELCHAIR - STEP 4: Does the helper lift the patient ONLY up? ONLY down? Up AND Down? Up AND Down. TRANSFERS: BED, CHAIR, WHEELCHAIR - SCORE: 2-MAX TRANSFERS: TOILET: Activity did not occur on this shift TRANSFERS: TOILET - SCORE: 0-UNK TRANSFERS: SHOWER: Activity did not occur on this shift TRANSFERS: SHOWER - SCORE: 0-UNK TRANSFERS: TUB: Activity did not occur on this shift TRANSFERS: TUB - SCORE: 0-UNK LOCOMOTION: WALK: Activity did not occur on this shift LOCOMOTION: WALK - SCORE: 0-UNK LOCOMOTION: WHEELCHAIR: Activity did not occur on this shift LOCOMOTION: WHEELCHAIR - SCORE: 0-UNK LOCOMOTION: STAIRS: Activity did not occur on this shift LOCOMOTION: STAIRS - SCORE: 0-UNK COMPREHENSION: COMPREHENSION - SCORE: 0-UNK EXPRESSION EXPRESSION - SCORE: 0-UNK SOCIAL INTERACTION: SOCIAL INTERACTION - SCORE: 0-UNK PROBLEM SOLVING: PROBLEM SOLVING - SCORE: 0-UNK MEMORY: MEMORY - SCORE: 0-UNK SIGNATURE PANEL: The following modified sections: Transfers: Bed, Chair, Wheelchair - Score, Transfers: Toilet - Score , Locomotion: Walk - Score, Locomotion: Wheelchair - Score, Locomotion: Stairs - Score were [electron icacarly] signed by Harvinder Sanchez PTA on MonJan 04 2018 15:02:32 GMT-0500 (Central Daylight Time)
--- NOTE | 2018-01-04 16:07 | FAST ---
ENCOUNTER DATE AND TIME: 01/04/2018 08:00 (CDT) NAME MARIBEL MIJARES DATE OF : 1965 DATE OF ADMISSION: 01/02/2018 12:13 (CDT) PHONE: AGE: 52 N# [id number] GENDER: Male ENCOUNTER PHYSICIAN: Dr. Cameron Malcolm M.D. ADMISSION DIAGNOSIS: - Amputation of Limb 05 - Other Amputation (05.9) EATING: Activity did not occur on this shift EATING - SCORE: 0-UNK GROOMING: Activity did not occur on this shift GROOMING - SCORE: 0-UNK BATHING: Activity did not occur on this shift BATHING - SCORE: 0-UNK DRESSING - UPPER BODY: Activity did not occur on this shift Patient is not dressing in public clothing ARTICLES SCORE Total number of steps: 0 DRESSING - UPPER BODY - SCORE: 0-UNK DRESSING - LOWER BODY: Activity did not occur on this shift Patient is not dressing in public clothing ARTICLES SCORE Total number of steps: 0 DRESSING - LOWER BODY - SCORE: 0-UNK TOILETING: Activity did not occur on this shift TOILETING - SCORE: 0-UNK BLADDER MANAGEMENT: Activity did not occur on this shift BLADDER MANAGEMENT - SCORE: 7-IND BOWEL MANAGEMENT: Activity did not occur on this shift BOWEL MANAGEMENT - SCORE: 7-IND TRANSFERS: BED, CHAIR, WHEELCHAIR: TRANSFERS: BED, CHAIR, WHEELCHAIR - STEP 1: Does the patient require assistance with bed, chair, or wheelchair transfers? Yes. TRANSFERS: BED, CHAIR, WHEELCHAIR - STEP 2: Does the patient require the assistance of a helper? Yes. TRANSFERS: BED, CHAIR, WHEELCHAIR - STEP 3: How much assistance does the patient require from the helper? Steadying/guiding assistance TRANSFERS: BED, CHAIR, WHEELCHAIR - SCORE: 4-MIN TRANSFERS: TOILET: Activity did not occur on this shift TRANSFERS: TOILET - SCORE: 0-UNK TRANSFERS: SHOWER: Activity did not occur on this shift TRANSFERS: SHOWER - SCORE: 0-UNK TRANSFERS: TUB: Activity did not occur on this shift TRANSFERS: TUB - SCORE: 0-UNK LOCOMOTION: WALK: Activity did not occur on this shift LOCOMOTION: WALK - SCORE: 0-UNK LOCOMOTION: WHEELCHAIR: LOCOMOTION: WHEELCHAIR - STEP 1: Does the patient need help to go 150 feet in a wheelchair? No. LOCOMOTION: WHEELCHAIR - SCORE: 6-SRAVANTHI LOCOMOTION: STAIRS: Activity did not occur on this shift LOCOMOTION: STAIRS - SCORE: 0-UNK COMPREHENSION: COMPREHENSION - SCORE: 0-UNK EXPRESSION EXPRESSION - SCORE: 0-UNK SOCIAL INTERACTION: SOCIAL INTERACTION - SCORE: 0-UNK PROBLEM SOLVING: PROBLEM SOLVING - SCORE: 0-UNK MEMORY: MEMORY - SCORE: 0-UNK SIGNATURE PANEL: The following modified sections: Transfers: Bed, Chair, Wheelchair - Score, Transfers: Toilet - Score , Locomotion: Walk - Score, Locomotion: Wheelchair - Score, Locomotion: Stairs - Score were [electron icacarly] signed by Harvinder Sanchez PTA on MonJan 04 2018 15:07:37 GMT-0500 (Central Daylight Time)
--- NOTE | 2018-01-04 16:07 | FAST ---
ENCOUNTER DATE AND TIME: 01/03/2018 08:00 (CDT) NAME MARIBEL MIJARES DATE OF : 1965 DATE OF ADMISSION: 01/02/2018 12:13 (CDT) PHONE: AGE: 52 N# [id number] GENDER: Male ENCOUNTER PHYSICIAN: Dr. Cameron Malcolm M.D. ADMISSION DIAGNOSIS: - Amputation of Limb 05 - Other Amputation (05.9) EATING: Activity did not occur on this shift EATING - SCORE: 0-UNK GROOMING: Activity did not occur on this shift GROOMING - SCORE: 0-UNK BATHING: Activity did not occur on this shift BATHING - SCORE: 0-UNK DRESSING - UPPER BODY: Activity did not occur on this shift Patient is not dressing in public clothing ARTICLES SCORE Total number of steps: 0 DRESSING - UPPER BODY - SCORE: 0-UNK DRESSING - LOWER BODY: Activity did not occur on this shift Patient is not dressing in public clothing ARTICLES SCORE Total number of steps: 0 DRESSING - LOWER BODY - SCORE: 0-UNK TOILETING: Activity did not occur on this shift TOILETING - SCORE: 0-UNK BLADDER MANAGEMENT: Activity did not occur on this shift BLADDER MANAGEMENT - SCORE: 7-IND BOWEL MANAGEMENT: Activity did not occur on this shift BOWEL MANAGEMENT - SCORE: 7-IND TRANSFERS: BED, CHAIR, WHEELCHAIR: TRANSFERS: BED, CHAIR, WHEELCHAIR - STEP 1: Does the patient require assistance with bed, chair, or wheelchair transfers? Yes. TRANSFERS: BED, CHAIR, WHEELCHAIR - STEP 2: Does the patient require the assistance of a helper? Yes. TRANSFERS: BED, CHAIR, WHEELCHAIR - STEP 3: How much assistance does the patient require from the helper? Steadying/guiding assistance TRANSFERS: BED, CHAIR, WHEELCHAIR - SCORE: 4-MIN TRANSFERS: TOILET: Activity did not occur on this shift TRANSFERS: TOILET - SCORE: 0-UNK TRANSFERS: SHOWER: Activity did not occur on this shift TRANSFERS: SHOWER - SCORE: 0-UNK TRANSFERS: TUB: Activity did not occur on this shift TRANSFERS: TUB - SCORE: 0-UNK LOCOMOTION: WALK: Activity did not occur on this shift LOCOMOTION: WALK - SCORE: 0-UNK LOCOMOTION: WHEELCHAIR: LOCOMOTION: WHEELCHAIR - STEP 1: Does the patient need help to go 150 feet in a wheelchair? No. LOCOMOTION: WHEELCHAIR - SCORE: 6-SRAVANTHI LOCOMOTION: STAIRS: Activity did not occur on this shift LOCOMOTION: STAIRS - SCORE: 0-UNK COMPREHENSION: COMPREHENSION - SCORE: 0-UNK EXPRESSION EXPRESSION - SCORE: 0-UNK SOCIAL INTERACTION: SOCIAL INTERACTION - SCORE: 0-UNK PROBLEM SOLVING: PROBLEM SOLVING - SCORE: 0-UNK MEMORY: MEMORY - SCORE: 0-UNK SIGNATURE PANEL: The following modified sections: Transfers: Bed, Chair, Wheelchair - Score, Transfers: Toilet - Score , Locomotion: Walk - Score, Locomotion: Wheelchair - Score, Locomotion: Stairs - Score were [electron icacarly] signed by Harvinder Sanchez PTA on MonJan 04 2018 15:06:38 GMT-0500 (Central Daylight Time)
[2018-01-04] MEDS: JUVEN PACKET PO SCH (19:59)
--- NOTE | 2018-01-04 20:20 | R.PN ---
ENCOUNTER DATE AND TIME: 01/04/2018 19:18 (CDT) NAME MARIBEL MIJARES DATE OF : 1965 DATE OF ADMISSION: 01/02/2018 12:13 (CDT) Left foot gangrene, status post amputations. Right BKA SUBJECTIVE: Pt denied any Shortness of Breath. Pt denied any depression. Self-propelled wheelchair 250' with modified independence. VITAL SIGNS Temperature: 97.8 F SBP/DBP: 140/78 Pulse: 77 Resp: 14 MEDICATION ALLERGIES: CLINDAMYCIN ENVIRONMENTAL ALLERGIES: None Known - Substance Allergies None Known - Other Allergies None Known CONSULT: Perform Consult Certified Prosthetic for prosthesis construction NURSING: - Shower allowing shower - Lab Results blood Sugar Check ACHS PRECAUTIONS: - Weight Bearing Precaution NWB left LE - Fall Precaution Bed and chair alarm ACTIVITIES OOB only with supervision THERAPIES: - Orthotics/Prosthetics Prosthetic Evaluation. - Occupational Therapy Evaluate and Treat. - Physical Therapy Evaluate and Treat. PHYSICAL EXAM - Gen Alert and awake Lying in bed No apparent distress Oriented to: person, time, and place - Skin left lower extremity incisions intact Normacephalic - Eyes No abnormalities - ENMT No abnormalities - Neck No abnormalities - CVS RRR - Chest No abnormalities - Abd Soft - GI Non distended Deferred - No abnormalities - Ext Good hemostasis at left foot surgical site., Right BKA is well bandaged. - MSK 4+/5 weakness in left upper and lower extremity - Neuro No focal deficits - Psych No abnormalities ASSESSMENT: Patient has realistic goal of being discharged at assistance level 6-Sharon to reside at Home with Fam jacqueline/Relatives. MDM/PLAN: - Diet Type Continue ADA 1800 - Physical Therapy Gait dysfunction - to improve, our physical therapists will perform initial evaluation of pt's statu s upon admission and devise an individualized program for Gait Training, and Wheel Chair mobility Inability to transfer - to improve, our physical therapists will perform initial evaluation of pt's status upon admission and devise an individualized program for Bed mobility Need for home safety evaluation - to improve, our physical therapists will perform initial evaluatio n of pt's status upon admission and devise an individualized program for Home Evaluation Need in caregiver upon discharge - to improve, our physical therapists will perform initial evaluati on of pt's status upon admission and devise an individualized program for Caregiver Training New precaution - to improve, our physical therapists will perform initial evaluation of pt's status upon admission and devise an individualized program for Patient precaution education Poor balance - to improve, our physical therapists will perform initial evaluation of pt's status up on admission and devise an individualized program for Balance Training Poor endurance - to improve, our physical therapists will perform initial evaluation of pt's status upon admission and devise an individualized program for Endurance Training Weakness - to improve, our physical therapists will perform initial evaluation of pt's status upon a dmission and devise an individualized program for Aquatic Therapy, Neuromuscular Reeducation, and Str engthening Achieving independence - to improve, our physical therapists will perform initial evaluation of pt's status upon admission and devise an individualized program for Community Reintegration Activities - Diet - Liquid Texture Continue Regular - Tube Feed Continue N/A - Lab Results blood Sugar Check ACHS - Weight Bearing Precaution NWB left LE - Fall Precaution Bed and chair alarm - N/A Perform Consult Certified Prosthetic for prosthesis construction - Diet - Solid Texture Continue Regular - Shower allowing shower - Occupational Therapy ADL deficits - to improve, our occupation therapists will perform initial evaluation of pt's status upon admission and devise an individualized program for Bathing, Bed mobility, Community Reintegratio n, Cooking, Dressing, Eating, Fine Motor Skills, Grooming, Homemaking, Kitchen Mobility, Laundry, Pat ient Education, Safety Awareness, Splinting - Positioning, Transfers(Toilet, Tub, Shower), and Wheel Chair Management Need for care information associate - to improve, our occupation therapists will perform initial evaluation of pt's status upon admission and devise an individualized program for Caregiver Training Weakness - to improve, our occupation therapists will perform initial evaluation of pt's status upon admission and devise an individualized program for Aquatic Therapy, Balance, Endurance, UE ROM, and UE strengthening FUNCTIONAL STATUS: UPDATED AT WEEKLY TEAM CONFERENCE - Bladder Same accident frequency: 7-Ind - No accidents in the past 7 days - Bowel Same accident frequency: 7-Ind - No accidents in the past 7 days - Walking Same score based on distance walked: 0(N/A) - Wheelchair Same score based on distance traveled: 3(>=150ft) FUNCTIONAL STATUS: - Self-Care A. Eating Ind B. Grooming Sharon C. Bathing sup D. Dressing - Upper Sharon E. Dressing - Lower sup F. Toileting sup - Sphincter Control G: Bladder control Ind H: Bowel control Ind - Transfers Control I. Bed/Chair/Wheelchair Vinny J. Toilet Vinny K. Tub/Shower ADNO - Locomotion L. Walk/Wheelchair (C) sup L. Walk/Wheelchair (W) sup M. Stairs ADNO - Communication N. Comprehension (B) Ind O. Expression (B) Ind - Social Cognition P. Social Interaction Ind Q. Problem Solving Ind R. Memory Ind - Endurance Fair - Balance Fair - Safety Awareness Fair [facility] DEFICITS: Balance, Locomotion, Endurance, Safety Awareness, Transfers Control, and Self-Care SIGNATURE PANEL: (CDT)
--- NOTE | 2018-01-04 23:12 | PN ---
Date of Progress Note: 01/04/2018 Chief Complaint: End-stage renal disease, on dialysis. History Of Present Illness: The patient has history of end-stage renal disease due to diabetes and hypertension. He has history of malnutrition and failure to thrive and he is on high protein intake. He is undergoing treatment with dialysis 3 times per week. Electrolytes and azotemia have been well controlled. The patient is euvolemic. He received dialysis yesterday. Review of Systems: Denies fever or chills. Physical Examination: Lungs: Clear to auscultation bilaterally. Heart: S1, S2. Abdomen: Soft, benign. Extremities: Dressing in place. Laboratory Work: Creatinine 7.2, BUN 61, hemoglobin 10.0, potassium 4.1. Impression And Plan: 1. End-stage renal disease. Dialysis is scheduled for tomorrow with ultrafiltration. Monitor blood pressure during dialysis. Continue renal diet with low potassium diet and high protein intake. 2. Hypertension. Blood pressure in acceptable control. Continue current treatment. 3. Severe peripheral vascular disease. The patient had workup done with Cardiology. Nonhealing lower extremity diabetic foot infection. Osteomyelitis gangrene. Continue wound care and antibiotics. 4. Renal osteodystrophy. Continue renal diet and binders. EB/[email or web address] Voice ID: [id number] Report ID: [id number]
[2018-01-05] MEDS: PIPER/TAZO/NS 2.25gm 2.25 GM/50 ML BAG IVPB SCH ×3 (00:58→21:08)
--- NOTE | 2018-01-05 02:38 | FAST ---
SHIFT START DATE/TIME: 01/04/2018 19:00 (CDT) SHIFT END DATE/TIME: 01/05/2018 07:00 (CDT) NAME MARIBEL MIJARES DATE OF : 1965 DATE OF ADMISSION: 01/02/2018 12:13 (CDT) PHONE: AGE: 52 N# [id number] GENDER: Male ENCOUNTER PHYSICIAN: Dr. Cameron Malcolm M.D. ADMISSION DIAGNOSIS: - Amputation of Limb 05 - Other Amputation (05.9) EATING: Activity did not occur on this shift EATING - SCORE: 0-UNK GROOMING: Activity did not occur on this shift GROOMING - SCORE: 0-UNK BATHING: Activity did not occur on this shift BATHING - SCORE: 0-UNK DRESSING - UPPER BODY: Activity did not occur on this shift ARTICLES SCORE Total number of steps: 0 DRESSING - UPPER BODY - SCORE: 0-UNK DRESSING - LOWER BODY: Activity did not occur on this shift ARTICLES SCORE Total number of steps: 0 DRESSING - LOWER BODY - SCORE: 0-UNK TOILETING: Activity did not occur on this shift TOILETING - SCORE: 0-UNK BLADDER MANAGEMENT: Patient is on renal dialysis or peritoneal dialysis and no voiding activity BLADDER MANAGEMENT - SCORE: 7-IND BOWEL MANAGEMENT: Activity did not occur on this shift BOWEL MANAGEMENT - SCORE: 7-IND TRANSFERS: BED, CHAIR, WHEELCHAIR: Activity did not occur on this shift TRANSFERS: BED, CHAIR, WHEELCHAIR - SCORE: 0-UNK TRANSFERS: TOILET: Activity did not occur on this shift TRANSFERS: TOILET - SCORE: 0-UNK TRANSFERS: SHOWER: Activity did not occur on this shift TRANSFERS: SHOWER - SCORE: 0-UNK TRANSFERS: TUB: Activity did not occur on this shift TRANSFERS: TUB - SCORE: 0-UNK LOCOMOTION: WALK: Activity did not occur on this shift LOCOMOTION: WALK - SCORE: 0-UNK LOCOMOTION: WHEELCHAIR: Activity did not occur on this shift LOCOMOTION: WHEELCHAIR - SCORE: 0-UNK COMPREHENSION: COMPREHENSION - STEP 1: Does the patient require help to understand complex and abstract ideas (such as current events, finan caitlyn, discharge planning, medical issues, relationships, etc)? No. COMPREHENSION - STEP 2: Does the patient need extra time, require an assistive device (such as glasses, hearing aids, or an a ugmentative communication system), OR does s/he have mild difficulty expressing complex and abstract ideas (including mild dysarthria or mild word-finding problems)? No. COMPREHENSION - SCORE: 7-IND EXPRESSION EXPRESSION - STEP 1: Does the patient require help expressing complex and abstract ideas (such as current events, finances , discharge planning, medical issues, relationships, etc)? No. EXPRESSION - STEP 2: Does the patient need extra time, require an assistive device (such as augmentive communication syste m or a communication board), OR does s/he have mild difficulty expressing complex and abstract ideas (including mild dysarthria or mild word-find problems)? No. EXPRESSION - SCORE: 7-IND SOCIAL INTERACTION: SOCIAL INTERACTION - STEP 1: Does the patient require a helper to interact with others in social and therapeutic situations? No. SOCIAL INTERACTION - STEP 2: Does the patient need extra time in social situations, OR does s/he interact with staff, other patien ts, and family members ONLY in structured environments, OR does s/he require medication for social in teraction? No. SOCIAL INTERACTION - SCORE: 7-IND PROBLEM SOLVING: PROBLEM SOLVING - STEP 1: Does the patient need help to solve complex problems such as managing a checking account or confronti ng interpersonal problems? No. PROBLEM SOLVING - STEP 2: Does the patient require extra time to make decisions or solve problems, OR does s/he have slight dif ficulty reading, initiating, or self-correcting in unfamiliar situations? No. PROBLEM SOLVING - SCORE: 7-IND MEMORY: MEMORY - STEP 1: Does the patient need help to remember frequently encountered people, daily routines, and executing r equests? No. MEMORY - STEP 2: Does the patient have slight difficulty recognizing frequently encountered people, daily routines, or executing requests without the need for repetition or using self-initiated or environmental cues to remember? No. MEMORY - SCORE: 7-IND SIGNATURE PANEL: The following modified sections: Eating - Score, Grooming - Score, Bathing - Score, Dressing - Upper Body - Score, Dressing - Lower Body - Score, Toileting - Score, Bladder Management - Score, Bowel Man agement - Score, Transfers: Bed, Chair, Wheelchair - Score, Transfers: Toilet - Score, Transfers: Susie wer - Score, Transfers: Tub - Score, Locomotion: Walk - Score, Locomotion: Wheelchair - Score, Compre hension - Score, Expression - Score, Social Interaction - Score, Problem Solving - Score, Memory - Sc ore were [electronically] signed by Alisson Navarro RN on MonJan 05 2018 01:38:10 T-0500 ([facility] Time)
[2018-01-05] MEDS: METOPROLOL TAR 25 MG TAB PO SCH ×2 (05:04→18:21)
[2018-01-05] MEDS: INSULIN -REGULAR HUMAN 50 UNIT/0.5 ML ML SQ SCH ×4 (07:30→21:00)
[2018-01-05] MEDS: JUVEN PACKET PO SCH ×2 (08:00→20:00)
[2018-01-05] MEDS: COLLAGENASE 30 GM OINTMENT TOP SCH ×2 (08:00→20:00)
[2018-01-05] MEDS: FUROSEMIDE 40 MG TABLET PO SCH (08:00)
[2018-01-05] MEDS: LISINOPRIL 10 MG TAB PO SCH (08:00)
[2018-01-05] MEDS: PREGABALIN 50 MG CAP PO SCH ×2 (08:05→21:08)
[2018-01-05] MEDS: SEVELAMER CARBONATE 800 MG TABLET PO SCH ×4 (08:05→17:05)
[2018-01-05] MEDS: APIXABAN 2.5 MG TABLET PO SCH ×2 (08:05→21:08)
[2018-01-05] MEDS: MULTIVITAMINS,THERAPEUT 1 TAB PO SCH (08:05)
[2018-01-05] MEDS: CLOPIDOGREL 75 MG TABLET PO SCH (08:05)
[2018-01-05] MEDS: RANITIDINE 150 MG TABLET PO SCH (08:06)
[2018-01-05] MEDS: HYDROCODONE/APAP 10/325 TAB PO PRN (08:06)
--- NOTE | 2018-01-05 10:17 | P.RH.PN ---
Estimated Length of Stay: 12 Expected Discharge Date: 01/13/18 Discharge Disposition Plan: Home Family Support: Yes Correction Goal: Mobility, Transfers, Self Care Vital Signs: Last Vital Signs Temp 98.2 F 01/05/18 07:45 Pulse 87 01/05/18 07:45 Resp 18 01/05/18 07:45 BP 168/87 H 01/05/18 07:45 Pulse Ox 97 01/05/18 07:45 Laboratory: Laboratory Last Values WBC 12.1 K/uL (4.3-10.9) H 01/03/18 05:35 RBC 3.65 M/uL (4.33-5.43) L 01/03/18 05:35 Hgb 9.8 g/dL (13.6-17.9) L 01/03/18 05:35 Hct 32.3 % (39.6-49.0) L 01/03/18 05:35 MCV 88.6 fL (80-100) 01/03/18 05:35 MCH 26.8 pg (27.0-35.0) L 01/03/18 05:35 MCHC 30.2 g/dL (32.0-36.0) L 01/03/18 05:35 RDW 18.6 % (12.1-15.2) H 01/03/18 05:35 Plt Count 230 K/uL (152-406) 01/03/18 05:35 MPV 10.1 fL (7.6-11.3) 01/03/18 05:35 Neutrophils % 82.8 % (41.7-73.7) H 01/03/18 05:35 Lymphocytes % 7.0 % (15.3-44.8) L 01/03/18 05:35 Monocytes % 7.5 % (3.3-12.3) 01/03/18 05:35 Eosinophils % 1.9 % (0-4.4) 01/03/18 05:35 Basophils % 0.8 % (0-1.3) 01/03/18 05:35 Absolute Neutrophils 10.0 K/uL (1.8-8.0) H 01/03/18 05:35 Absolute Lymphocytes 0.8 K/uL (0.7-4.9) 01/03/18 05:35 Absolute Monocytes 0.9 K/uL (0.1-1.3) 01/03/18 05:35 Absolute Eosinophils 0.2 K/uL (0-0.5) 01/03/18 05:35 Absolute Basophils 0.1 K/uL (0-0.5) 01/03/18 05:35 Sodium 135 mmol/L (136-145) L 01/03/18 05:35 Potassium 4.1 mmol/L (3.5-5.1) 01/03/18 05:35 Chloride 99 mmol/L (98-107) 01/03/18 05:35 Carbon Dioxide 24 mmol/L (21-32) 01/03/18 05:35 BUN 59 mg/dL (7-18) H 01/03/18 05:35 Creatinine 7.30 mg/dL (0.55-1.3) H* D 01/03/18 05:35 Estimated GFR 8 mL/min (=/>90) L 01/03/18 05:35 Glucose 122 mg/dL (74-106) H 01/03/18 05:35 POC Glucose 125 mg/dl (65-120) H 01/05/18 07:17 Calcium 8.9 mg/dL (8.5-10.1) 01/03/18 05:35 Magnesium 2.3 mg/dL (1.8-2.4) 01/03/18 05:35 Albumin 2.2 g/dL (3.4-5.0) L 01/03/18 05:35 Prealbumin 11.8 mg/dL (20-40) L 01/03/18 05:35 Vancomycin Trough 8.9 ug/mL (5-20) 01/03/18 14:36 Weight: 134 lb 6.4 oz Wound Present: Yes Closed Surgical Incision Present: No Negative Pressure Wound Therapy Present: No Physician Update: He appears to be depressed and will start Cymbalta 20 mg daily. He is on 2000 fluid renal diet, Jueven and possible nepro shake. He eat less than 50% of meals but he is eating cookies from his family. His blood sugars are fairly well controlled. Functional Improvement: Patient is progressing as expected. Patient will require constant VC for proper future ADL w/ proper diet, safety awareness, etc. Functional Improvement Occupational Therapy: PATIENT DEMONSTRATING STEADY PROGRESS TOWARD LTG SET IN POC. Summary: Patient's care plan and assisted goals have been reviewed and revised as necessary. Please see the Rehabilitation Signature page for all necessary signatures.
--- NOTE | 2018-01-05 10:53 | FAST ---
SHIFT START DATE/TIME: 01/05/2018 07:00 (CDT) SHIFT END DATE/TIME: 01/05/2018 19:00 (CDT) NAME MARIBEL MIJARES DATE OF : 1965 DATE OF ADMISSION: 01/02/2018 12:13 (CDT) PHONE: AGE: 52 N# [id number] GENDER: Male ENCOUNTER PHYSICIAN: Dr. Cameron Malcolm M.D. ADMISSION DIAGNOSIS: - Amputation of Limb 05 - Other Amputation (05.9) EATING: EATING - STEP 1: Does the patient require assistance when eating? No. EATING - SCORE: 7-IND GROOMING: Activity did not occur on this shift GROOMING - SCORE: 0-UNK BATHING: Activity did not occur on this shift BATHING - SCORE: 0-UNK DRESSING - UPPER BODY: Activity did not occur on this shift ARTICLES SCORE Total number of steps: 0 DRESSING - UPPER BODY - SCORE: 0-UNK DRESSING - LOWER BODY: Activity did not occur on this shift ARTICLES SCORE Total number of steps: 0 DRESSING - LOWER BODY - SCORE: 0-UNK TOILETING: Activity did not occur on this shift TOILETING - SCORE: 0-UNK BLADDER MANAGEMENT: BLADDER MANAGEMENT - STEP 1: Does the patient control the bladder completely and intentionally without equipment or devices or med ications, and is always continent? Yes. BLADDER MANAGEMENT - SCORE: 7-IND BLADDER MANAGEMENT - FREQUENCY OF ACCIDENTS: BLADDER MANAGEMENT(FA) - STEP 1: How many accidents has the patient had during the current shift? 0 BOWEL MANAGEMENT: Activity did not occur on this shift BOWEL MANAGEMENT - SCORE: 7-IND TRANSFERS: BED, CHAIR, WHEELCHAIR: TRANSFERS: BED, CHAIR, WHEELCHAIR - STEP 1: Does the patient require assistance with bed, chair, or wheelchair transfers? Yes. TRANSFERS: BED, CHAIR, WHEELCHAIR - STEP 2: Does the patient require the assistance of a helper? No. Patient only requires an assistive device fo r bed, chair, wheelchair transfers such as a sliding board, grab bar, or brace, OR s/he takes more th an reasonable time, OR there is a safety concern when s/he performs the transfers TRANSFERS: BED, CHAIR, WHEELCHAIR - SCORE: 6-SRAVANTHI TRANSFERS: TOILET: Activity did not occur on this shift TRANSFERS: TOILET - SCORE: 0-UNK TRANSFERS: SHOWER: Activity did not occur on this shift TRANSFERS: SHOWER - SCORE: 0-UNK TRANSFERS: TUB: Activity did not occur on this shift TRANSFERS: TUB - SCORE: 0-UNK LOCOMOTION: WALK: Activity did not occur on this shift LOCOMOTION: WALK - SCORE: 0-UNK LOCOMOTION: WHEELCHAIR: Activity did not occur on this shift LOCOMOTION: WHEELCHAIR - SCORE: 0-UNK COMPREHENSION: COMPREHENSION - SCORE: 0-UNK EXPRESSION EXPRESSION - SCORE: 0-UNK SOCIAL INTERACTION: SOCIAL INTERACTION - SCORE: 0-UNK PROBLEM SOLVING: PROBLEM SOLVING - SCORE: 0-UNK MEMORY: MEMORY - SCORE: 0-UNK SIGNATURE PANEL: The following modified sections: Eating - Score, Grooming - Score, Bathing - Score, Dressing - Upper Body - Score, Dressing - Lower Body - Score, Toileting - Score, Bladder Management - Score, Bowel Man agement - Score, Transfers: Bed, Chair, Wheelchair - Score, Transfers: Toilet - Score, Transfers: Susie wer - Score, Transfers: Tub - Score, Locomotion: Walk - Score, Locomotion: Wheelchair - Score, Compre hension - Score, Expression - Score, Social Interaction - Score, Problem Solving - Score, Memory - Sc ore were [electronically] signed by Karey Montgomery CNA on MonJan 05 2018 09:53:28 GMT-0500 (Centra [place] Daylight Time)
--- NOTE | 2018-01-05 16:05 | FAST ---
ENCOUNTER DATE AND TIME: 01/05/2018 08:00 (CDT) NAME MARIBEL MIJARES DATE OF : 1965 DATE OF ADMISSION: 01/02/2018 12:13 (CDT) PHONE: AGE: 52 N# [id number] GENDER: Male ENCOUNTER PHYSICIAN: Dr. Cameron Malcolm M.D. ADMISSION DIAGNOSIS: - Amputation of Limb 05 - Other Amputation (05.9) EATING: Activity did not occur on this shift EATING - SCORE: 0-UNK GROOMING: Activity did not occur on this shift GROOMING - SCORE: 0-UNK BATHING: Activity did not occur on this shift BATHING - SCORE: 0-UNK DRESSING - UPPER BODY: Activity did not occur on this shift Patient is not dressing in public clothing ARTICLES SCORE Total number of steps: 0 DRESSING - UPPER BODY - SCORE: 0-UNK DRESSING - LOWER BODY: Activity did not occur on this shift Patient is not dressing in public clothing ARTICLES SCORE Total number of steps: 0 DRESSING - LOWER BODY - SCORE: 0-UNK TOILETING: Activity did not occur on this shift TOILETING - SCORE: 0-UNK BLADDER MANAGEMENT: Activity did not occur on this shift BLADDER MANAGEMENT - SCORE: 7-IND BOWEL MANAGEMENT: Activity did not occur on this shift BOWEL MANAGEMENT - SCORE: 7-IND TRANSFERS: BED, CHAIR, WHEELCHAIR: TRANSFERS: BED, CHAIR, WHEELCHAIR - STEP 1: Does the patient require assistance with bed, chair, or wheelchair transfers? Yes. TRANSFERS: BED, CHAIR, WHEELCHAIR - STEP 2: Does the patient require the assistance of a helper? Yes. TRANSFERS: BED, CHAIR, WHEELCHAIR - STEP 3: How much assistance does the patient require from the helper? Steadying/guiding assistance TRANSFERS: BED, CHAIR, WHEELCHAIR - SCORE: 4-MIN TRANSFERS: TOILET: Activity did not occur on this shift TRANSFERS: TOILET - SCORE: 0-UNK TRANSFERS: SHOWER: Activity did not occur on this shift TRANSFERS: SHOWER - SCORE: 0-UNK TRANSFERS: TUB: Activity did not occur on this shift TRANSFERS: TUB - SCORE: 0-UNK LOCOMOTION: WALK: Activity did not occur on this shift LOCOMOTION: WALK - SCORE: 0-UNK LOCOMOTION: WHEELCHAIR: LOCOMOTION: WHEELCHAIR - STEP 1: Does the patient need help to go 150 feet in a wheelchair? No. LOCOMOTION: WHEELCHAIR - SCORE: 6-SRAVANTHI LOCOMOTION: STAIRS: Activity did not occur on this shift LOCOMOTION: STAIRS - SCORE: 0-UNK COMPREHENSION: COMPREHENSION - SCORE: 0-UNK EXPRESSION EXPRESSION - SCORE: 0-UNK SOCIAL INTERACTION: SOCIAL INTERACTION - SCORE: 0-UNK PROBLEM SOLVING: PROBLEM SOLVING - SCORE: 0-UNK MEMORY: MEMORY - SCORE: 0-UNK SIGNATURE PANEL: The following modified sections: Transfers: Bed, Chair, Wheelchair - Score, Transfers: Toilet - Score , Locomotion: Walk - Score, Locomotion: Wheelchair - Score, Locomotion: Stairs - Score were [electron icacarly] signed by Harvinder Sanchez PTA on MonJan 05 2018 15:04:56 GMT-0500 (Central Daylight Time)
--- NOTE | 2018-01-05 16:22 | FAST ---
ENCOUNTER DATE AND TIME: 01/05/2018 08:00 (CDT) NAME MARIBEL MIJARES DATE OF : 1965 DATE OF ADMISSION: 01/02/2018 12:13 (CDT) PHONE: AGE: 52 N# [id number] GENDER: Male ENCOUNTER PHYSICIAN: Dr. Cameron Malcolm M.D. ADMISSION DIAGNOSIS: - Amputation of Limb 05 - Other Amputation (05.9) EATING: Activity did not occur on this shift EATING - SCORE: 0-UNK GROOMING: Comb/brush hair Wash, rinse, and dry face Wash, rinse, and dry hands GROOMING - STEP 1: Does the patient require assistance when grooming? No. GROOMING - SCORE: 7-IND BATHING: Abdomen Buttocks Chest Left arm Left upper leg Perineal area Right arm Right upper leg BATHING - STEP 1: Does the patient require assistance when bathing? Yes. BATHING - STEP 2: Does the patient require the assistance of a helper? Yes. BATHING - STEP 3: How much assistance does the patient require from the helper? Only supervision, cuing, coaxing, instr uctions, encouragement BATHING - SCORE: 5-SUP DRESSING - UPPER BODY: T-shirt/pullover shirt (four steps) ARTICLES SCORE Total number of steps: 4 DRESSING - UPPER BODY - STEP 1: Does the patient require help when dressing above the waist? No. DRESSING - UPPER BODY - SCORE: 7-IND DRESSING - LOWER BODY: Elastic waist pants (three steps) Underwear (three steps) ARTICLES SCORE Total number of steps: 6 DRESSING - LOWER BODY - STEP 1: Does the patient require help when dressing below the waist? Yes. DRESSING - LOWER BODY - STEP 2: Does the patient require the assistance of a helper? Yes. DRESSING - LOWER BODY - STEP 3: Does the helper touch the patient while dressing? Yes. DRESSING - LOWER BODY - STEP 4: How many of the total steps does the patient complete on his/her own? 5 DRESSING - LOWER BODY - SCORE: 4-MIN TOILETING: Activity did not occur on this shift TOILETING - SCORE: 0-UNK BLADDER MANAGEMENT: Activity did not occur on this shift BLADDER MANAGEMENT - SCORE: 7-IND BOWEL MANAGEMENT: Activity did not occur on this shift BOWEL MANAGEMENT - SCORE: 7-IND TRANSFERS: BED, CHAIR, WHEELCHAIR: Activity did not occur on this shift TRANSFERS: BED, CHAIR, WHEELCHAIR - SCORE: 0-UNK TRANSFERS: TOILET: Activity did not occur on this shift TRANSFERS: TOILET - SCORE: 0-UNK TRANSFERS: SHOWER: Activity did not occur on this shift TRANSFERS: SHOWER - SCORE: 0-UNK TRANSFERS: TUB: TRANSFERS: TUB - STEP 1: Does the patient require assistance with tub transfers? Yes. TRANSFERS: TUB - STEP 2: Does the patient require the assistance of a helper? Yes. TRANSFERS: TUB - STEP 3: How much assistance does the patient require from the helper? Incidental help such as contact guardin g or steadying, OR help to lift one leg into the tub TRANSFERS: TUB - SCORE: 4-MIN LOCOMOTION: WALK: Activity did not occur on this shift LOCOMOTION: WALK - SCORE: 0-UNK LOCOMOTION: WHEELCHAIR: Activity did not occur on this shift LOCOMOTION: WHEELCHAIR - SCORE: 0-UNK LOCOMOTION: STAIRS: Activity did not occur on this shift LOCOMOTION: STAIRS - SCORE: 0-UNK COMPREHENSION: COMPREHENSION - STEP 1: Does the patient require help to understand complex and abstract ideas (such as current events, finan caitlyn, discharge planning, medical issues, relationships, etc)? No. COMPREHENSION - STEP 2: Does the patient need extra time, require an assistive device (such as glasses, hearing aids, or an a ugmentative communication system), OR does s/he have mild difficulty expressing complex and abstract ideas (including mild dysarthria or mild word-finding problems)? No. COMPREHENSION - SCORE: 7-IND EXPRESSION EXPRESSION: TYPE: Non-Vocal EXPRESSION - STEP 1: Does the patient require help expressing complex and abstract ideas (such as current events, finances , discharge planning, medical issues, relationships, etc)? No. EXPRESSION - STEP 2: Does the patient need extra time, require an assistive device (such as augmentive communication syste m or a communication board), OR does s/he have mild difficulty expressing complex and abstract ideas (including mild dysarthria or mild word-find problems)? No. EXPRESSION - SCORE: 7-IND SOCIAL INTERACTION: SOCIAL INTERACTION - STEP 1: Does the patient require a helper to interact with others in social and therapeutic situations? No. SOCIAL INTERACTION - STEP 2: Does the patient need extra time in social situations, OR does s/he interact with staff, other patien ts, and family members ONLY in structured environments, OR does s/he require medication for social in teraction? No. SOCIAL INTERACTION - SCORE: 7-IND PROBLEM SOLVING: PROBLEM SOLVING - STEP 1: Does the patient need help to solve complex problems such as managing a checking account or confronti ng interpersonal problems? No. PROBLEM SOLVING - STEP 2: Does the patient require extra time to make decisions or solve problems, OR does s/he have slight dif ficulty reading, initiating, or self-correcting in unfamiliar situations? Yes, patient needs extra ti me. PROBLEM SOLVING - SCORE: 6-SRAVANTHI MEMORY: MEMORY - STEP 1: Does the patient need help to remember frequently encountered people, daily routines, and executing r equests? No. MEMORY - STEP 2: Does the patient have slight difficulty recognizing frequently encountered people, daily routines, or executing requests without the need for repetition or using self-initiated or environmental cues to remember? Yes. MEMORY - SCORE: 6-SRAVANTHI SIGNATURE PANEL: The following modified sections: Eating - Score, Grooming - Score, Bathing - Score, Dressing - Upper Body - Score, Dressing - Lower Body - Score, Toileting - Score, Transfers: Bed, Chair, Wheelchair - S core, Transfers: Toilet - Score, Transfers: Shower - Score, Transfers: Tub - Score, Comprehension - S core, Expression - Score, Social Interaction - Score, Problem Solving - Score, Memory - Score were [e lectronically] signed by RAMON Hernández on MonJan 05 2018 15:22:04 T-0500 ([facility])
[2018-01-05] MEDS: VANCOMYCIN 500 MG in NA CHLORIDE 0.9% 100 ML IV SCH (19:08)
--- NOTE | 2018-01-06 00:05 | PN ---
Date of Progress Note: 01/05/2018 Chief Complaint: End-stage renal disease. History Of Present Illness: The patient has end-stage renal disease due to diabetes and hypertension. The patient is undergoing dialysis today with ultrafiltration. The patient does not have fluid overload. Maintenance ultrafiltration will be obtained. The patient is tolerating dialysis. Review of Systems: Denies fever or chills. Physical Examination: Lungs: Clear to auscultation bilaterally. Heart: S1, S2. Abdomen: Soft, benign. Extremities: Dressing in place. Vital Signs: Blood pressure 149/70, heart rate 80, respiratory rate 16, temperature 97.9. Impression And Plan: 1. End-stage renal disease. Dialysis is done today. The patient is tolerating treatment. 2. Anemia and chronic kidney disease. Continue HALIMA. Monitor hemoglobin level. 3. Renal osteodystrophy. Continue renal diet and binders. 4. Hypoalbuminemia. Prealbumin level is 11.8, albumin is 2.2. Increase p.o. protein intake. 5. Mild hyponatremia. Sodium 135 and glucose 122 due to mild fluid overload. Continue low-sodium and p.o. fluid restriction. Adjust ultrafiltration accordingly. ELMER/MODAnyi Voice ID: [id number] Report ID: [id number] HEATHER
[2018-01-06] MEDS: METOPROLOL TAR 25 MG TAB PO SCH (05:15)
[2018-01-06] MEDS: PIPER/TAZO/NS 2.25gm 2.25 GM/50 ML BAG IVPB SCH ×3 (05:16→16:27)
[2018-01-06] MEDS: HYDROCODONE/APAP 10/325 TAB PO PRN ×3 (06:57→21:08)
[2018-01-06] MEDS: INSULIN -REGULAR HUMAN 50 UNIT/0.5 ML ML SQ SCH ×4 (07:30→21:00)
[2018-01-06] MEDS: COLLAGENASE 30 GM OINTMENT TOP SCH ×2 (08:00→20:00)
[2018-01-06] MEDS: APIXABAN 2.5 MG TABLET PO SCH (08:00)
[2018-01-06] MEDS: PREGABALIN 50 MG CAP PO SCH ×2 (08:18→21:05)
[2018-01-06] MEDS: FUROSEMIDE 40 MG TABLET PO SCH (08:18)
[2018-01-06] MEDS: RANITIDINE 150 MG TABLET PO SCH (08:18)
[2018-01-06] MEDS: SEVELAMER CARBONATE 800 MG TABLET PO SCH ×3 (08:18→16:26)
[2018-01-06] MEDS: CLOPIDOGREL 75 MG TABLET PO SCH (08:19)
[2018-01-06] MEDS: MULTIVITAMINS,THERAPEUT 1 TAB PO SCH (08:19)
[2018-01-06] MEDS: JUVEN PACKET PO SCH ×2 (08:20→20:00)
--- NOTE | 2018-01-06 09:56 | FAST ---
ENCOUNTER DATE AND TIME: 01/06/2018 08:00 (CDT) NAME MARIBEL MIJARES DATE OF : 1965 DATE OF ADMISSION: 01/02/2018 12:13 (CDT) PHONE: AGE: 52 SSN# [id number] GENDER: Male ENCOUNTER PHYSICIAN: Dr. Cameron Malcolm M.D. ADMISSION DIAGNOSIS: - Amputation of Limb 05 - Other Amputation (05.9) EATING: Activity did not occur on this shift EATING - SCORE: 0-UNK GROOMING: Activity did not occur on this shift GROOMING - SCORE: 0-UNK BATHING: Activity did not occur on this shift BATHING - SCORE: 0-UNK DRESSING - UPPER BODY: Activity did not occur on this shift Patient is not dressing in public clothing ARTICLES SCORE Total number of steps: 0 DRESSING - UPPER BODY - SCORE: 0-UNK DRESSING - LOWER BODY: Activity did not occur on this shift Patient is not dressing in public clothing ARTICLES SCORE Total number of steps: 0 DRESSING - LOWER BODY - SCORE: 0-UNK TOILETING: Activity did not occur on this shift TOILETING - SCORE: 0-UNK BLADDER MANAGEMENT: Activity did not occur on this shift BLADDER MANAGEMENT - SCORE: 7-IND BOWEL MANAGEMENT: Activity did not occur on this shift BOWEL MANAGEMENT - SCORE: 7-IND TRANSFERS: BED, CHAIR, WHEELCHAIR: TRANSFERS: BED, CHAIR, WHEELCHAIR - STEP 1: Does the patient require assistance with bed, chair, or wheelchair transfers? Yes. TRANSFERS: BED, CHAIR, WHEELCHAIR - STEP 2: Does the patient require the assistance of a helper? Yes. TRANSFERS: BED, CHAIR, WHEELCHAIR - STEP 3: How much assistance does the patient require from the helper? Only supervision TRANSFERS: BED, CHAIR, WHEELCHAIR - SCORE: 5-SUP TRANSFERS: TOILET: Activity did not occur on this shift TRANSFERS: TOILET - SCORE: 0-UNK TRANSFERS: SHOWER: Activity did not occur on this shift TRANSFERS: SHOWER - SCORE: 0-UNK TRANSFERS: TUB: Activity did not occur on this shift TRANSFERS: TUB - SCORE: 0-UNK LOCOMOTION: WALK: Activity did not occur on this shift LOCOMOTION: WALK - SCORE: 0-UNK LOCOMOTION: WHEELCHAIR: LOCOMOTION: WHEELCHAIR - STEP 1: Does the patient need help to go 150 feet in a wheelchair? No. LOCOMOTION: WHEELCHAIR - SCORE: 6-SRAVANTHI LOCOMOTION: STAIRS: Activity did not occur on this shift LOCOMOTION: STAIRS - SCORE: 0-UNK COMPREHENSION: COMPREHENSION - SCORE: 0-UNK EXPRESSION EXPRESSION - SCORE: 0-UNK SOCIAL INTERACTION: SOCIAL INTERACTION - SCORE: 0-UNK PROBLEM SOLVING: PROBLEM SOLVING - SCORE: 0-UNK MEMORY: MEMORY - SCORE: 0-UNK SIGNATURE PANEL: The following modified sections: Transfers: Bed, Chair, Wheelchair - Score, Transfers: Toilet - Score , Locomotion: Walk - Score, Locomotion: Wheelchair - Score, Locomotion: Stairs - Score were [electron ically] signed by Harvinder Sanchez PTA on Sat Jan 06 2018 08:56:09 GMT-0500 (Central Daylight Time)
[2018-01-06] MEDS: LISINOPRIL 10 MG TAB PO SCH (10:25)
[2018-01-06 15:09] LABS: Hematocrit 32.6 % (39.6-49.0); MCH 28.3 pg (27.0-35.0); MCV 89.4 fL (80-100); MPV 10.3 fL (7.6-11.3); RBC Red Blood Cell Count 3.64 M/uL (4.33-5.43)
[2018-01-06 15:15] LABS: Protime INR 1.89
[2018-01-06] MEDS ORDERED: HEPARIN 5000 UNIT/ML 1 ML VIAL SQ SCH (20:00)
[2018-01-07] MEDS: PIPER/TAZO/NS 2.25gm 2.25 GM/50 ML BAG IVPB SCH ×3 (00:35→17:37)
--- NOTE | 2018-01-07 01:45 | PN ---
Date of Progress Note: 01/06/2018 Chief Complaint: End-stage renal disease, on dialysis. Subjective: The patient had dialysis done yesterday with ultrafiltration. The patient developed some fluid overload, leg edema. He denies shortness of breath , PND, orthopnea. Review of Systems: The patient was complaining of some nasal oozing. Denies hemoptysis. He has nasal congestion. Denies headache, vision changes. Physical Examination: Lungs: Clear to auscultation bilaterally. Heart: S1, S2. Abdomen: Soft, benign. Extremities: Edema 1+ in lower extremities. Laboratory Data: Hemoglobin 10.3, WBC is 8.6, platelet count is 214,000. INR is 1.89, PTT is 35.7, PT 22.4. Vancomycin trough level 11.4. Impression And Plan: 1. End-stage renal disease. Next dialysis on Monday. Continue low-sodium diet, p.o. fluid restriction. The patient has some fluid overload with leg edema. Monitor daily weight. 2. Hypertension. Blood pressure elevated. Adjust blood pressure medication. 3. Renal osteodystrophy. Continue renal diet and binders. 4. Anemia due to chronic kidney disease. Hemoglobin level satisfactory. Adjust HALIMA as needed. 5. Epistaxis. The patient will have coagulation panel evaluated and plan is to hold heparin for 1 day. 6. Peripheral vascular disease. The patient will continue Plavix. ELMER/DONNA Voice ID: [id number] Report ID: [id number] MTDD
--- NOTE | 2018-01-07 03:15 | FAST ---
SHIFT START DATE/TIME: 01/06/2018 19:00 (CDT) SHIFT END DATE/TIME: 01/07/2018 07:00 (CDT) NAME MARIBEL MIJARES DATE OF : 1965 DATE OF ADMISSION: 01/02/2018 12:13 (CDT) PHONE: AGE: 52 N# [id number] GENDER: Male ENCOUNTER PHYSICIAN: Dr. Cameron Malcolm M.D. ADMISSION DIAGNOSIS: - Amputation of Limb 05 - Other Amputation (05.9) EATING: Activity did not occur on this shift EATING - SCORE: 0-UNK GROOMING: Activity did not occur on this shift GROOMING - SCORE: 0-UNK BATHING: Activity did not occur on this shift BATHING - SCORE: 0-UNK DRESSING - UPPER BODY: Activity did not occur on this shift ARTICLES SCORE Total number of steps: 0 DRESSING - UPPER BODY - SCORE: 0-UNK DRESSING - LOWER BODY: Activity did not occur on this shift ARTICLES SCORE Total number of steps: 0 DRESSING - LOWER BODY - SCORE: 0-UNK TOILETING: TOILETING - STEP 1: Does the patient require assistance with toileting? Yes. TOILETING - STEP 2: Does the patient require the assistance of a helper? Yes. TOILETING - STEP 3: How much assistance does the patient require from the helper? Only supervision TOILETING - SCORE: 5-SUP BLADDER MANAGEMENT: Patient is on renal dialysis or peritoneal dialysis and no voiding activity BLADDER MANAGEMENT - SCORE: 7-IND BOWEL MANAGEMENT: Activity did not occur on this shift BOWEL MANAGEMENT - SCORE: 7-IND TRANSFERS: BED, CHAIR, WHEELCHAIR: TRANSFERS: BED, CHAIR, WHEELCHAIR - STEP 1: Does the patient require assistance with bed, chair, or wheelchair transfers? Yes. TRANSFERS: BED, CHAIR, WHEELCHAIR - STEP 2: Does the patient require the assistance of a helper? Yes. TRANSFERS: BED, CHAIR, WHEELCHAIR - STEP 3: How much assistance does the patient require from the helper? Only supervision TRANSFERS: BED, CHAIR, WHEELCHAIR - SCORE: 5-SUP TRANSFERS: TOILET: Activity did not occur on this shift TRANSFERS: TOILET - SCORE: 0-UNK TRANSFERS: SHOWER: Activity did not occur on this shift TRANSFERS: SHOWER - SCORE: 0-UNK TRANSFERS: TUB: Activity did not occur on this shift TRANSFERS: TUB - SCORE: 0-UNK LOCOMOTION: WALK: Activity did not occur on this shift LOCOMOTION: WALK - SCORE: 0-UNK LOCOMOTION: WHEELCHAIR: Activity did not occur on this shift LOCOMOTION: WHEELCHAIR - SCORE: 0-UNK COMPREHENSION: COMPREHENSION: TYPE: Both COMPREHENSION - STEP 1: Does the patient require help to understand complex and abstract ideas (such as current events, finan caitlyn, discharge planning, medical issues, relationships, etc)? No. COMPREHENSION - STEP 2: Does the patient need extra time, require an assistive device (such as glasses, hearing aids, or an a ugmentative communication system), OR does s/he have mild difficulty expressing complex and abstract ideas (including mild dysarthria or mild word-finding problems)? No. COMPREHENSION - SCORE: 7-IND EXPRESSION EXPRESSION: TYPE: Both EXPRESSION - STEP 1: Does the patient require help expressing complex and abstract ideas (such as current events, finances , discharge planning, medical issues, relationships, etc)? No. EXPRESSION - STEP 2: Does the patient need extra time, require an assistive device (such as augmentive communication syste m or a communication board), OR does s/he have mild difficulty expressing complex and abstract ideas (including mild dysarthria or mild word-find problems)? No. EXPRESSION - SCORE: 7-IND SOCIAL INTERACTION: SOCIAL INTERACTION - STEP 1: Does the patient require a helper to interact with others in social and therapeutic situations? No. SOCIAL INTERACTION - STEP 2: Does the patient need extra time in social situations, OR does s/he interact with staff, other patien ts, and family members ONLY in structured environments, OR does s/he require medication for social in teraction? No. SOCIAL INTERACTION - SCORE: 7-IND PROBLEM SOLVING: PROBLEM SOLVING - STEP 1: Does the patient need help to solve complex problems such as managing a checking account or confronti ng interpersonal problems? No. PROBLEM SOLVING - STEP 2: Does the patient require extra time to make decisions or solve problems, OR does s/he have slight dif ficulty reading, initiating, or self-correcting in unfamiliar situations? No. PROBLEM SOLVING - SCORE: 7-IND MEMORY: MEMORY - STEP 1: Does the patient need help to remember frequently encountered people, daily routines, and executing r equests? No. MEMORY - STEP 2: Does the patient have slight difficulty recognizing frequently encountered people, daily routines, or executing requests without the need for repetition or using self-initiated or environmental cues to remember? No. MEMORY - SCORE: 7-IND
[2018-01-07] MEDS: METOPROLOL TAR 25 MG TAB PO SCH (05:13)
[2018-01-07] MEDS: INSULIN -REGULAR HUMAN 50 UNIT/0.5 ML ML SQ SCH ×4 (07:30→20:45)
[2018-01-07] MEDS ORDERED: HEPARIN 5000 UNIT/ML 1 ML VIAL SQ SCH (08:00)
[2018-01-07] MEDS: SEVELAMER CARBONATE 800 MG TABLET PO SCH ×3 (08:25→17:37)
[2018-01-07] MEDS: MULTIVITAMINS,THERAPEUT 1 TAB PO SCH (08:25)
[2018-01-07] MEDS: COLLAGENASE 30 GM OINTMENT TOP SCH ×2 (08:25→20:44)
[2018-01-07] MEDS: PREGABALIN 50 MG CAP PO SCH ×2 (08:26→20:43)
[2018-01-07] MEDS: CLOPIDOGREL 75 MG TABLET PO SCH (08:26)
[2018-01-07] MEDS: FUROSEMIDE 40 MG TABLET PO SCH (08:26)
[2018-01-07] MEDS: HYDROCODONE/APAP 10/325 TAB PO PRN (08:27)
[2018-01-07] MEDS: RANITIDINE 150 MG TABLET PO SCH (08:27)
[2018-01-07] MEDS: JUVEN PACKET PO SCH ×2 (08:28→20:00)
[2018-01-07] MEDS: LISINOPRIL 10 MG TAB PO SCH ×2 (10:24→20:43)
[2018-01-07] MEDS: hydrOXYzine HCl 25 MG TAB PO PRN (12:38)
[2018-01-07] MEDS: HYDROCORTISONE 1 % CREAM 30GM TOP PRN ×2 (13:01→20:51)
--- NOTE | 2018-01-07 15:15 | FAST ---
SHIFT START DATE/TIME: 01/06/2018 07:00 (CDT) SHIFT END DATE/TIME: 01/06/2018 19:00 (CDT) NAME MARIBEL MIJARES DATE OF : 1965 DATE OF ADMISSION: 01/02/2018 12:13 (CDT) PHONE: AGE: 52 N# [id number] GENDER: Male ENCOUNTER PHYSICIAN: Dr. Cameron Malcolm M.D. ADMISSION DIAGNOSIS: - Amputation of Limb 05 - Other Amputation (05.9) EATING: EATING - STEP 1: Does the patient require assistance when eating? Yes. EATING - STEP 2: Does the patient require the assistance of a helper? No, patient only requires an assistive device, O R s/he takes more than reasonable time to eat, OR there is a safety concern, OR s/he requires modifie d food consistency EATING - SCORE: 6-SRAVANTHI GROOMING: Activity did not occur on this shift GROOMING - SCORE: 0-UNK BATHING: Activity did not occur on this shift BATHING - SCORE: 0-UNK DRESSING - UPPER BODY: Activity did not occur on this shift ARTICLES SCORE Total number of steps: 0 DRESSING - UPPER BODY - SCORE: 0-UNK DRESSING - LOWER BODY: Activity did not occur on this shift ARTICLES SCORE Total number of steps: 0 DRESSING - LOWER BODY - SCORE: 0-UNK TOILETING: TOILETING - STEP 1: Does the patient require assistance with toileting? Yes. TOILETING - STEP 2: Does the patient require the assistance of a helper? Yes. TOILETING - STEP 3: How much assistance does the patient require from the helper? Hands-on assistance from the helper TOILETING - STEP 4: Of the 3 tasks: 1) Adjusting clothing prior to use, 2) Cleansing of perineal area, 3) Adjusting clot dinorah after use; How many tasks does the patient perform WITHOUT assistance of the helper? Two tasks TOILETING - SCORE: 3-MOD BLADDER MANAGEMENT: BLADDER MANAGEMENT - STEP 1: Does the patient control the bladder completely and intentionally without equipment or devices or med ications, and is always continent? No. BLADDER MANAGEMENT - STEP 2: Does the patient require the assistance of a helper? No, patient requires and independently uses an a ssistive device, such as a urinal, bedpan, bedside commode, catheter, absorbent pad, or collecting de vice BLADDER MANAGEMENT - SCORE: 6-SRAVANTHI BLADDER MANAGEMENT - FREQUENCY OF ACCIDENTS: BLADDER MANAGEMENT(FA) - STEP 1: How many accidents has the patient had during the current shift? 0 BOWEL MANAGEMENT: Activity did not occur on this shift BOWEL MANAGEMENT - SCORE: 7-IND BOWEL MANAGEMENT - FREQUENCY OF ACCIDENTS: BOWEL MANAGEMENT(FA) - STEP 1: How many accidents has the patient had during the current shift? 0 TRANSFERS: BED, CHAIR, WHEELCHAIR: TRANSFERS: BED, CHAIR, WHEELCHAIR - STEP 1: Does the patient require assistance with bed, chair, or wheelchair transfers? Yes. TRANSFERS: BED, CHAIR, WHEELCHAIR - STEP 2: Does the patient require the assistance of a helper? Yes. TRANSFERS: BED, CHAIR, WHEELCHAIR - STEP 3: How much assistance does the patient require from the helper? Only supervision TRANSFERS: BED, CHAIR, WHEELCHAIR - SCORE: 5-SUP TRANSFERS: BED, CHAIR, WHEELCHAIR - COMMENTS: W/c positioned beside bed breaks on- pt uses his arms to lift his body and move to side of bed- pt us es arms and lifts self into w/c TRANSFERS: TOILET: TRANSFERS: TOILET - STEP 1: Does the patient require assistance with toilet transfers? Yes. TRANSFERS: TOILET - STEP 2: Does the patient require the assistance of a helper? Yes. TRANSFERS: TOILET - STEP 3: How much assistance does the patient require from the helper? Only supervision, cuing, coaxing, OR he lp to set out transfer equipment or to lock brakes and/or lift foot rests TRANSFERS: TOILET - SCORE: 5-SUP TRANSFERS: TOILET - COMMENTS: Bed side commode positioned beside bed- aide standing behind bedside commode for safety precautions - pt uses his arms to lift self up off bed onto bedside commode- TRANSFERS: SHOWER: Activity did not occur on this shift TRANSFERS: SHOWER - SCORE: 0-UNK TRANSFERS: TUB: Activity did not occur on this shift TRANSFERS: TUB - SCORE: 0-UNK LOCOMOTION: WALK: Activity did not occur on this shift LOCOMOTION: WALK - SCORE: 0-UNK LOCOMOTION: WHEELCHAIR: LOCOMOTION: WHEELCHAIR - STEP 1: Does the patient need help to go 150 feet in a wheelchair? Yes. LOCOMOTION: WHEELCHAIR - STEP 2: How much assistance does the patient need from the helper? Only supervision, cuing, or coaxing LOCOMOTION: WHEELCHAIR - SCORE: 5-SUP COMPREHENSION: COMPREHENSION: TYPE: Both COMPREHENSION - STEP 1: Does the patient require help to understand complex and abstract ideas (such as current events, finan caitlyn, discharge planning, medical issues, relationships, etc)? No. COMPREHENSION - STEP 2: Does the patient need extra time, require an assistive device (such as glasses, hearing aids, or an a ugmentative communication system), OR does s/he have mild difficulty expressing complex and abstract ideas (including mild dysarthria or mild word-finding problems)? Yes. COMPREHENSION - SCORE: 6-SRAVANTHI EXPRESSION EXPRESSION: TYPE: Both EXPRESSION - STEP 1: Does the patient require help expressing complex and abstract ideas (such as current events, finances , discharge planning, medical issues, relationships, etc)? No. EXPRESSION - STEP 2: Does the patient need extra time, require an assistive device (such as augmentive communication syste m or a communication board), OR does s/he have mild difficulty expressing complex and abstract ideas (including mild dysarthria or mild word-find problems)? Yes. EXPRESSION - SCORE: 6-SRAVANTHI SOCIAL INTERACTION: SOCIAL INTERACTION - STEP 1: Does the patient require a helper to interact with others in social and therapeutic situations? No. SOCIAL INTERACTION - STEP 2: Does the patient need extra time in social situations, OR does s/he interact with staff, other patien ts, and family members ONLY in structured environments, OR does s/he require medication for social in teraction? Yes, patient needs extra time SOCIAL INTERACTION - SCORE: 6-SRAVANTHI PROBLEM SOLVING: PROBLEM SOLVING - STEP 1: Does the patient need help to solve complex problems such as managing a checking account or confronti ng interpersonal problems? No. PROBLEM SOLVING - STEP 2: Does the patient require extra time to make decisions or solve problems, OR does s/he have slight dif ficulty reading, initiating, or self-correcting in unfamiliar situations? Yes, patient needs extra ti me. PROBLEM SOLVING - SCORE: 6-SRAVANTHI MEMORY: MEMORY - STEP 1: Does the patient need help to remember frequently encountered people, daily routines, and executing r equests? No. MEMORY - STEP 2: Does the patient have slight difficulty recognizing frequently encountered people, daily routines, or executing requests without the need for repetition or using self-initiated or environmental cues to remember? Yes. MEMORY - SCORE: 6-SRAVANTHI SIGNATURE PANEL: The following modified sections: Eating - Score, Grooming - Score, Bathing - Score, Dressing - Lower Body - Score, Toileting - Score, Bladder Management - Score, Bowel Management - Score, Transfers: Bed , Chair, Wheelchair - Score, Transfers: Bed, Chair, Wheelchair - Comments:, Transfers: Toilet - Score , Transfers: Toilet - Comments:, Transfers: Shower - Score, Transfers: Tub - Score, Locomotion: Walk - Score, Locomotion: Wheelchair - Score, Comprehension - Score, Expression - Score, Social Interactio n - Score, Problem Solving - Score, Memory - Score, Dressing - Upper Body - Score were [electronicall y] signed by Renee Avendaño C.N.A. on MonJan 07 2018 14:15:48 GMT-0500 (Central Daylight Time)
--- NOTE | 2018-01-07 15:27 | FAST ---
SHIFT START DATE/TIME: 01/07/2018 07:00 (CDT) SHIFT END DATE/TIME: 01/07/2018 19:00 (CDT) NAME MARIBEL MIJARES DATE OF : 1965 DATE OF ADMISSION: 01/02/2018 12:13 (CDT) PHONE: AGE: 52 N# [id number] GENDER: Male ENCOUNTER PHYSICIAN: Dr. Cameron Malcolm M.D. ADMISSION DIAGNOSIS: - Amputation of Limb 05 - Other Amputation (05.9) EATING: EATING - STEP 1: Does the patient require assistance when eating? Yes. EATING - STEP 2: Does the patient require the assistance of a helper? No, patient only requires an assistive device, O R s/he takes more than reasonable time to eat, OR there is a safety concern, OR s/he requires modifie d food consistency EATING - SCORE: 6-SRAVANTHI GROOMING: Activity did not occur on this shift GROOMING - SCORE: 0-UNK BATHING: Activity did not occur on this shift BATHING - SCORE: 0-UNK DRESSING - UPPER BODY: Activity did not occur on this shift ARTICLES SCORE Total number of steps: 0 DRESSING - UPPER BODY - SCORE: 0-UNK DRESSING - LOWER BODY: Activity did not occur on this shift ARTICLES SCORE Total number of steps: 0 DRESSING - LOWER BODY - SCORE: 0-UNK TOILETING: Activity did not occur on this shift TOILETING - SCORE: 0-UNK BLADDER MANAGEMENT: Patient is on renal dialysis or peritoneal dialysis and no voiding activity BLADDER MANAGEMENT - SCORE: 7-IND BLADDER MANAGEMENT - FREQUENCY OF ACCIDENTS: BLADDER MANAGEMENT(FA) - STEP 1: How many accidents has the patient had during the current shift? 0 BOWEL MANAGEMENT: Activity did not occur on this shift BOWEL MANAGEMENT - SCORE: 7-IND BOWEL MANAGEMENT - FREQUENCY OF ACCIDENTS: BOWEL MANAGEMENT(FA) - STEP 1: How many accidents has the patient had during the current shift? 0 TRANSFERS: BED, CHAIR, WHEELCHAIR: TRANSFERS: BED, CHAIR, WHEELCHAIR - STEP 1: Does the patient require assistance with bed, chair, or wheelchair transfers? Yes. TRANSFERS: BED, CHAIR, WHEELCHAIR - STEP 2: Does the patient require the assistance of a helper? Yes. TRANSFERS: BED, CHAIR, WHEELCHAIR - STEP 3: How much assistance does the patient require from the helper? Only supervision TRANSFERS: BED, CHAIR, WHEELCHAIR - SCORE: 5-SUP TRANSFERS: BED, CHAIR, WHEELCHAIR - COMMENTS: W/c positioned facing bed- breaks on- pt uses his arms to lift his body and position body into w/c TRANSFERS: TOILET: Activity did not occur on this shift TRANSFERS: TOILET - SCORE: 0-UNK TRANSFERS: SHOWER: Activity did not occur on this shift TRANSFERS: SHOWER - SCORE: 0-UNK TRANSFERS: TUB: Activity did not occur on this shift TRANSFERS: TUB - SCORE: 0-UNK LOCOMOTION: WALK: Activity did not occur on this shift LOCOMOTION: WALK - SCORE: 0-UNK LOCOMOTION: WHEELCHAIR: LOCOMOTION: WHEELCHAIR - STEP 1: Does the patient need help to go 150 feet in a wheelchair? No. LOCOMOTION: WHEELCHAIR - SCORE: 6-SRAVANTHI COMPREHENSION: COMPREHENSION: TYPE: Both COMPREHENSION - STEP 1: Does the patient require help to understand complex and abstract ideas (such as current events, finan caitlyn, discharge planning, medical issues, relationships, etc)? No. COMPREHENSION - STEP 2: Does the patient need extra time, require an assistive device (such as glasses, hearing aids, or an a ugmentative communication system), OR does s/he have mild difficulty expressing complex and abstract ideas (including mild dysarthria or mild word-finding problems)? Yes. COMPREHENSION - SCORE: 6-SRAVANTHI EXPRESSION EXPRESSION: TYPE: Both EXPRESSION - STEP 1: Does the patient require help expressing complex and abstract ideas (such as current events, finances , discharge planning, medical issues, relationships, etc)? No. EXPRESSION - STEP 2: Does the patient need extra time, require an assistive device (such as augmentive communication syste m or a communication board), OR does s/he have mild difficulty expressing complex and abstract ideas (including mild dysarthria or mild word-find problems)? Yes. EXPRESSION - SCORE: 6-SRAVANTHI SOCIAL INTERACTION: SOCIAL INTERACTION - STEP 1: Does the patient require a helper to interact with others in social and therapeutic situations? No. SOCIAL INTERACTION - STEP 2: Does the patient need extra time in social situations, OR does s/he interact with staff, other patien ts, and family members ONLY in structured environments, OR does s/he require medication for social in teraction? Yes, patient needs extra time SOCIAL INTERACTION - SCORE: 6-SRAVANTHI PROBLEM SOLVING: PROBLEM SOLVING - STEP 1: Does the patient need help to solve complex problems such as managing a checking account or confronti ng interpersonal problems? No. PROBLEM SOLVING - STEP 2: Does the patient require extra time to make decisions or solve problems, OR does s/he have slight dif ficulty reading, initiating, or self-correcting in unfamiliar situations? Yes, patient needs extra ti me. PROBLEM SOLVING - SCORE: 6-SRAVANTHI MEMORY: MEMORY - STEP 1: Does the patient need help to remember frequently encountered people, daily routines, and executing r equests? No. MEMORY - STEP 2: Does the patient have slight difficulty recognizing frequently encountered people, daily routines, or executing requests without the need for repetition or using self-initiated or environmental cues to remember? Yes. MEMORY - SCORE: 6-SRVAANTHI SIGNATURE PANEL: The following modified sections: Eating - Score, Grooming - Score, Bathing - Score, Dressing - Upper Body - Score, Dressing - Lower Body - Score, Toileting - Score, Bladder Management - Score, Bowel Man agement - Score, Transfers: Bed, Chair, Wheelchair - Score, Transfers: Bed, Chair, Wheelchair - Comme nts:, Transfers: Toilet - Score, Transfers: Shower - Score, Transfers: Tub - Score, Locomotion: Walk - Score, Locomotion: Wheelchair - Score, Comprehension - Score, Expression - Score, Social Interactio n - Score, Problem Solving - Score, Memory - Score were [electronically] signed by Amadeo Cole on MonJan 07 2018 14:27:36 T-0500 (Central Daylight Time)
[2018-01-07] MEDS: HEPARIN 5000 UNIT/ML 1 ML VIAL SQ SCH (18:22)
--- NOTE | 2018-01-07 22:48 | PN ---
Date of Progress Note: 01/07/2018 Chief Complaint: End-stage renal disease, on dialysis. History Of Present Illness: The patient has multiple medical problems including history of diabetes mellitus, congestive heart failure, coronary artery disease, peripheral vascular disease, history of nonhealing lower extremity wounds, diabetic foot infection. He is admitted for lower extremity gangrene. He previously underwent toe amputation. He is awaiting for BKA, he has nonhealing wounds and progressively worse gangrenous toes. Review of Systems: Denies headache or vision changes. Denies PND or orthopnea. Physical Examination: Lungs: Clear to auscultation bilaterally. Heart: S1, S2. Abdomen: Soft, benign. Extremities: Dressing in place. Laboratory Data: Hemoglobin 10.3, WBC 8.6, platelet count 214. Impression And Plan: 1. End-stage renal disease. Next dialysis tomorrow. 2. Fluid overload. Legs edema. Continue p.o. fluid restriction. Ultrafiltration will be done tomorrow to control fluid overload. 3. Anemia due to chronic kidney disease. Hemoglobin level satisfactory. Continue HALIMA. 4. Epistaxis, resolved, and plan is to resume heparin. 5. Peripheral vascular disease. The patient will continue Plavix. ELMER/DONNA Voice ID: [id number] Report ID: [id number] HEATHER
[2018-01-08] MEDS: PIPER/TAZO/NS 2.25gm 2.25 GM/50 ML BAG IVPB SCH ×2 (00:53→09:19)
--- NOTE | 2018-01-08 03:47 | FAST ---
SHIFT START DATE/TIME: 01/07/2018 19:00 (CDT) SHIFT END DATE/TIME: 01/08/2018 07:00 (CDT) NAME MARIBEL MIJARES DATE OF : 1965 DATE OF ADMISSION: 01/02/2018 12:13 (CDT) PHONE: AGE: 52 N# [id number] GENDER: Male ENCOUNTER PHYSICIAN: Dr. Cameron Malcolm M.D. ADMISSION DIAGNOSIS: - Amputation of Limb 05 - Other Amputation (05.9) EATING: Activity did not occur on this shift EATING - SCORE: 0-UNK GROOMING: Activity did not occur on this shift GROOMING - SCORE: 0-UNK BATHING: Activity did not occur on this shift BATHING - SCORE: 0-UNK DRESSING - UPPER BODY: Activity did not occur on this shift ARTICLES SCORE Total number of steps: 0 DRESSING - UPPER BODY - SCORE: 0-UNK DRESSING - LOWER BODY: Activity did not occur on this shift ARTICLES SCORE Total number of steps: 0 DRESSING - LOWER BODY - SCORE: 0-UNK TOILETING: Activity did not occur on this shift TOILETING - SCORE: 0-UNK BLADDER MANAGEMENT: Patient is on renal dialysis or peritoneal dialysis and no voiding activity BLADDER MANAGEMENT - SCORE: 7-IND BLADDER MANAGEMENT - FREQUENCY OF ACCIDENTS: BLADDER MANAGEMENT(FA) - STEP 1: How many accidents has the patient had during the current shift? 0 BOWEL MANAGEMENT: Activity did not occur on this shift BOWEL MANAGEMENT - SCORE: 7-IND BOWEL MANAGEMENT - FREQUENCY OF ACCIDENTS: BOWEL MANAGEMENT(FA) - STEP 1: How many accidents has the patient had during the current shift? 0 TRANSFERS: BED, CHAIR, WHEELCHAIR: TRANSFERS: BED, CHAIR, WHEELCHAIR - STEP 1: Does the patient require assistance with bed, chair, or wheelchair transfers? Yes. TRANSFERS: BED, CHAIR, WHEELCHAIR - STEP 2: Does the patient require the assistance of a helper? Yes. TRANSFERS: BED, CHAIR, WHEELCHAIR - STEP 3: How much assistance does the patient require from the helper? Only supervision TRANSFERS: BED, CHAIR, WHEELCHAIR - SCORE: 5-SUP TRANSFERS: TOILET: Activity did not occur on this shift TRANSFERS: TOILET - SCORE: 0-UNK TRANSFERS: SHOWER: Activity did not occur on this shift TRANSFERS: SHOWER - SCORE: 0-UNK TRANSFERS: TUB: Activity did not occur on this shift TRANSFERS: TUB - SCORE: 0-UNK LOCOMOTION: WALK: Activity did not occur on this shift LOCOMOTION: WALK - SCORE: 0-UNK LOCOMOTION: WHEELCHAIR: Activity did not occur on this shift LOCOMOTION: WHEELCHAIR - SCORE: 0-UNK COMPREHENSION: COMPREHENSION: TYPE: Both COMPREHENSION - STEP 1: Does the patient require help to understand complex and abstract ideas (such as current events, finan caitlyn, discharge planning, medical issues, relationships, etc)? No. COMPREHENSION - STEP 2: Does the patient need extra time, require an assistive device (such as glasses, hearing aids, or an a ugmentative communication system), OR does s/he have mild difficulty expressing complex and abstract ideas (including mild dysarthria or mild word-finding problems)? Yes. COMPREHENSION - SCORE: 6-SRAVANTHI EXPRESSION EXPRESSION: TYPE: Both EXPRESSION - STEP 1: Does the patient require help expressing complex and abstract ideas (such as current events, finances , discharge planning, medical issues, relationships, etc)? No. EXPRESSION - STEP 2: Does the patient need extra time, require an assistive device (such as augmentive communication syste m or a communication board), OR does s/he have mild difficulty expressing complex and abstract ideas (including mild dysarthria or mild word-find problems)? Yes. EXPRESSION - SCORE: 6-SRAVANTHI SOCIAL INTERACTION: SOCIAL INTERACTION - STEP 1: Does the patient require a helper to interact with others in social and therapeutic situations? No. SOCIAL INTERACTION - STEP 2: Does the patient need extra time in social situations, OR does s/he interact with staff, other patien ts, and family members ONLY in structured environments, OR does s/he require medication for social in teraction? Yes, patient requires medication for social interaction SOCIAL INTERACTION - SCORE: 6-SRAVANTHI PROBLEM SOLVING: PROBLEM SOLVING - STEP 1: Does the patient need help to solve complex problems such as managing a checking account or confronti ng interpersonal problems? No. PROBLEM SOLVING - STEP 2: Does the patient require extra time to make decisions or solve problems, OR does s/he have slight dif ficulty reading, initiating, or self-correcting in unfamiliar situations? Yes, patient needs extra ti me. PROBLEM SOLVING - SCORE: 6-SRAVANTHI MEMORY: MEMORY - STEP 1: Does the patient need help to remember frequently encountered people, daily routines, and executing r equests? No. MEMORY - STEP 2: Does the patient have slight difficulty recognizing frequently encountered people, daily routines, or executing requests without the need for repetition or using self-initiated or environmental cues to remember? Yes. MEMORY - SCORE: 6-SRAVANTHI SIGNATURE PANEL: The following modified sections: Eating - Score, Grooming - Score, Bathing - Score, Dressing - Upper Body - Score, Dressing - Lower Body - Score, Toileting - Score, Bladder Management - Score, Bowel Man agement - Score, Transfers: Bed, Chair, Wheelchair - Score, Transfers: Toilet - Score, Transfers: Susie wer - Score, Transfers: Tub - Score, Locomotion: Walk - Score, Locomotion: Wheelchair - Score, Compre hension - Score, Expression - Score, Social Interaction - Score, Problem Solving - Score, Memory - Sc ore were [electronically] signed by Guerita Mcdaniel RN on MonJan 08 2018 02:47:26 GMT-0500 (Centra l Daylight Time)
[2018-01-08] MEDS: METOPROLOL TAR 25 MG TAB PO SCH (05:07)
[2018-01-08 05:57] LABS: Absolute Lymphocytes (CBC) 0.9 K/uL (0.7-4.9); Absolute Monocytes 0.5 K/uL (0.1-1.3); Absolute Neutrophil 7.5 K/uL (1.8-8.0); Basophils % 1.7 % (0-1.3); Eosinophils % 2.9 % (0-4.4); Hematocrit 30.9 % (39.6-49.0); Lymphocytes % 9.2 % (15.3-44.8); MCH 28.4 pg (27.0-35.0); MCV 88.8 fL (80-100); MPV 10.8 fL (7.6-11.3); Monocytes % 5.7 % (3.3-12.3); RBC Red Blood Cell Count 3.48 M/uL (4.33-5.43)
[2018-01-08] MEDS ORDERED: METOPROLOL TAR 25 MG TAB PO SCH (06:16)
[2018-01-08 06:23] LABS: Potassium 4.1 mmol/L (3.5-5.1)
[2018-01-08] MEDS: INSULIN -REGULAR HUMAN 50 UNIT/0.5 ML ML SQ SCH ×3 (07:30→16:30)
[2018-01-08] MEDS: COLLAGENASE 30 GM OINTMENT TOP SCH (08:00)
[2018-01-08] MEDS: JUVEN PACKET PO SCH (08:00)
[2018-01-08] MEDS: HEPARIN 5000 UNIT/ML 1 ML VIAL SQ SCH (08:00)
[2018-01-08] MEDS: LISINOPRIL 10 MG TAB PO SCH (09:19)
[2018-01-08] MEDS: HYDROCODONE/APAP 10/325 TAB PO PRN (09:20)
[2018-01-08] MEDS: FUROSEMIDE 40 MG TABLET PO SCH (09:20)
[2018-01-08] MEDS: MULTIVITAMINS,THERAPEUT 1 TAB PO SCH (09:20)
[2018-01-08] MEDS: PREGABALIN 50 MG CAP PO SCH (09:20)
[2018-01-08] MEDS: CLOPIDOGREL 75 MG TABLET PO SCH (09:21)
[2018-01-08] MEDS: RANITIDINE 150 MG TABLET PO SCH (09:21)
[2018-01-08] MEDS: SEVELAMER CARBONATE 800 MG TABLET PO SCH ×2 (09:21→12:09)
[2018-01-08 09:22] VITALS: BP 155/84; TEMP 97.1
--- NOTE | 2018-01-08 15:15 | FAST ---
ENCOUNTER DATE AND TIME: 01/08/2018 08:00 (CDT) NAME MARIBEL MIJARES DATE OF : 1965 DATE OF ADMISSION: 01/02/2018 12:13 (CDT) PHONE: AGE: 52 N# [id number] GENDER: Male ENCOUNTER PHYSICIAN: Dr. Cameron Malcolm M.D. ADMISSION DIAGNOSIS: - Amputation of Limb 05 - Other Amputation (05.9) EATING: Activity did not occur on this shift EATING - SCORE: 0-UNK GROOMING: Comb/brush hair Wash, rinse, and dry face Wash, rinse, and dry hands GROOMING - STEP 1: Does the patient require assistance when grooming? No. GROOMING - SCORE: 7-IND BATHING: Abdomen Buttocks Chest Left arm Left upper leg Perineal area Right arm Right upper leg BATHING - STEP 1: Does the patient require assistance when bathing? Yes. BATHING - STEP 2: Does the patient require the assistance of a helper? Yes. BATHING - STEP 3: How much assistance does the patient require from the helper? Only incidental help such as placement of a wash cloth in his/her hand a few times as s/he bathes OR help to bathe just one or two areas of the body BATHING - SCORE: 4-MIN DRESSING - UPPER BODY: T-shirt/pullover shirt (four steps) ARTICLES SCORE Total number of steps: 4 DRESSING - UPPER BODY - STEP 1: Does the patient require help when dressing above the waist? No. DRESSING - UPPER BODY - SCORE: 7-IND DRESSING - LOWER BODY: Elastic waist pants (three steps) Underwear (three steps) ARTICLES SCORE Total number of steps: 6 DRESSING - LOWER BODY - STEP 1: Does the patient require help when dressing below the waist? Yes. DRESSING - LOWER BODY - STEP 2: Does the patient require the assistance of a helper? Yes. DRESSING - LOWER BODY - STEP 3: Does the helper touch the patient while dressing? No. DRESSING - LOWER BODY - SCORE: 5-SUP TOILETING: Activity did not occur on this shift TOILETING - SCORE: 0-UNK BLADDER MANAGEMENT: Activity did not occur on this shift BLADDER MANAGEMENT - SCORE: 7-IND BOWEL MANAGEMENT: Activity did not occur on this shift BOWEL MANAGEMENT - SCORE: 7-IND TRANSFERS: BED, CHAIR, WHEELCHAIR: Activity did not occur on this shift TRANSFERS: BED, CHAIR, WHEELCHAIR - SCORE: 0-UNK TRANSFERS: TOILET: Activity did not occur on this shift TRANSFERS: TOILET - SCORE: 0-UNK TRANSFERS: SHOWER: Activity did not occur on this shift TRANSFERS: SHOWER - SCORE: 0-UNK TRANSFERS: TUB: TRANSFERS: TUB - STEP 1: Does the patient require assistance with tub transfers? Yes. TRANSFERS: TUB - STEP 2: Does the patient require the assistance of a helper? Yes. TRANSFERS: TUB - STEP 3: How much assistance does the patient require from the helper? Only supervision, cuing, coaxing, or he lp to set out transfer equipment or to lock brakes and/or lift foot rests TRANSFERS: TUB - SCORE: 5-SUP LOCOMOTION: WALK: Activity did not occur on this shift LOCOMOTION: WALK - SCORE: 0-UNK LOCOMOTION: WHEELCHAIR: Activity did not occur on this shift LOCOMOTION: WHEELCHAIR - SCORE: 0-UNK LOCOMOTION: STAIRS: Activity did not occur on this shift LOCOMOTION: STAIRS - SCORE: 0-UNK COMPREHENSION: COMPREHENSION - STEP 1: Does the patient require help to understand complex and abstract ideas (such as current events, finan caitlyn, discharge planning, medical issues, relationships, etc)? No. COMPREHENSION - STEP 2: Does the patient need extra time, require an assistive device (such as glasses, hearing aids, or an a ugmentative communication system), OR does s/he have mild difficulty expressing complex and abstract ideas (including mild dysarthria or mild word-finding problems)? No. COMPREHENSION - SCORE: 7-IND EXPRESSION EXPRESSION: TYPE: Non-Vocal EXPRESSION - STEP 1: Does the patient require help expressing complex and abstract ideas (such as current events, finances , discharge planning, medical issues, relationships, etc)? No. EXPRESSION - STEP 2: Does the patient need extra time, require an assistive device (such as augmentive communication syste m or a communication board), OR does s/he have mild difficulty expressing complex and abstract ideas (including mild dysarthria or mild word-find problems)? No. EXPRESSION - SCORE: 7-IND SOCIAL INTERACTION: SOCIAL INTERACTION - STEP 1: Does the patient require a helper to interact with others in social and therapeutic situations? No. SOCIAL INTERACTION - STEP 2: Does the patient need extra time in social situations, OR does s/he interact with staff, other patien ts, and family members ONLY in structured environments, OR does s/he require medication for social in teraction? No. SOCIAL INTERACTION - SCORE: 7-IND PROBLEM SOLVING: PROBLEM SOLVING - STEP 1: Does the patient need help to solve complex problems such as managing a checking account or confronti ng interpersonal problems? No. PROBLEM SOLVING - STEP 2: Does the patient require extra time to make decisions or solve problems, OR does s/he have slight dif ficulty reading, initiating, or self-correcting in unfamiliar situations? No. PROBLEM SOLVING - SCORE: 7-IND MEMORY: MEMORY - STEP 1: Does the patient need help to remember frequently encountered people, daily routines, and executing r equests? No. MEMORY - STEP 2: Does the patient have slight difficulty recognizing frequently encountered people, daily routines, or executing requests without the need for repetition or using self-initiated or environmental cues to remember? No. MEMORY - SCORE: 7-IND SIGNATURE PANEL: The following modified sections: Eating - Score, Grooming - Score, Bathing - Score, Dressing - Upper Body - Score, Dressing - Lower Body - Score, Toileting - Score, Transfers: Bed, Chair, Wheelchair - S core, Transfers: Toilet - Score, Transfers: Shower - Score, Transfers: Tub - Score, Comprehension - S core, Expression - Score, Social Interaction - Score, Problem Solving - Score, Memory - Score were [e lectronically] signed by RAMON Hernández on MonJan 08 2018 14:15:49 T-0500 (Formerly [facility], 1928–1983)
--- NOTE | 2018-01-08 15:23 | PN ---
Date of Progress Note: 01/08/2018 Subjective: Mr. Prasad is a 52-year-old patient with severe peripheral vascular disease, cardiac dise ase, and received an amputation of several toes on the left foot for a wet gangrene. The patient was advised to have a left below-knee amputation at least, although we favor above-knee amputation due t o his severe peripheral vascular disease, but he did not signed for any consent. He only allowed us to remove the first, third, and fourth toes in that area. The patient understands the importance of the dressing changes, although healing in that area is minimized. He is not ready to do any higher a mputation. The patient is receiving wound care. He has a successful right below-knee amputation sev eral months ago. All nicely healed, incisions perfect, even though we thought it might not heal on t he right amputation site, but then he failed twice and he broke the entire area. He is healing well with good granulation tissue on the right side. Objective: General: The patient is awake and alert. No distress. Abdomen: Soft and depressible. Extremities: Right surgical area is intact. Left surgical area shows some gangrenous changes over t he foot area. It is progressing more proximal. There is no granulation tissue present. The area of the previous amputation is still intact. Laboratory Data: Blood work shows WBC count of 9.3, hemoglobin of 9.9. INR is 1.89. Creatinine is 6.60. Assessment: A 52-year-old patient with multiple medical problems including renal disease, cardiac di sease, severe peripheral vascular disease with gangrene of the left foot area. The patient came this Monday night to discuss the patient as per personal request. He has once again the options that we change the wounds and explained to him that even if he removes the toe #2, which is right now gangren ous with distal foot gangrene, still he is just basically cleaning the area, but this will not heal. The patient needs left below-knee at least, above-knee better success chance. He is not able to johnnie e commitment yet, so we explained to him the benefits and risks, explained to him it can take signifi cant amount of time to discuss with him and his the pros and cons of any surgical intervention a nd cardiac risk and medical risk. He is yet to make any decision, so we will wait for his response. This patient is going to end up back in medical service since his gangrenous changes are progressing and will need acute care again. YARIEL/MODAnyi Voice ID: [id number] Report ID: [id number]
[2018-01-08] MEDS: VANCOMYCIN 500 MG in NA CHLORIDE 0.9% 100 ML IV SCH (15:42)
[2018-01-08] MEDS: EPOETIN ALFA 10,000 UNIT/ML VIAL IV SCH (15:43)
--- NOTE | 2018-01-08 16:54 | FAST ---
SHIFT START DATE/TIME: 01/08/2018 07:00 (CDT) SHIFT END DATE/TIME: 01/08/2018 19:00 (CDT) NAME MARIBEL MIJARES DATE OF : 1965 DATE OF ADMISSION: 01/02/2018 12:13 (CDT) PHONE: AGE: 52 N# [id number] GENDER: Male ENCOUNTER PHYSICIAN: Dr. Cameron Malcolm M.D. ADMISSION DIAGNOSIS: - Amputation of Limb 05 - Other Amputation (05.9) EATING: EATING - STEP 1: Does the patient require assistance when eating? Yes. EATING - STEP 2: Does the patient require the assistance of a helper? No, patient only requires an assistive device, O R s/he takes more than reasonable time to eat, OR there is a safety concern, OR s/he requires modifie d food consistency EATING - SCORE: 6-SRAVANTHI GROOMING: Comb/brush hair Oral care GROOMING - STEP 1: Does the patient require assistance when grooming? Yes. GROOMING - STEP 2: Does the patient require the assistance of a helper? No. The patient only requires an assistive devic e, OR takes more than reasonable time to groom, OR there is a concern for safety as the patient groom s GROOMING - SCORE: 6-SRAVANTHI BATHING: Activity did not occur on this shift BATHING - SCORE: 0-UNK DRESSING - UPPER BODY: Activity did not occur on this shift ARTICLES SCORE Total number of steps: 0 DRESSING - UPPER BODY - SCORE: 0-UNK DRESSING - LOWER BODY: Activity did not occur on this shift ARTICLES SCORE Total number of steps: 0 DRESSING - LOWER BODY - SCORE: 0-UNK TOILETING: TOILETING - STEP 1: Does the patient require assistance with toileting? Yes. TOILETING - STEP 2: Does the patient require the assistance of a helper? Yes. TOILETING - STEP 3: How much assistance does the patient require from the helper? Hands-on assistance from the helper TOILETING - STEP 4: Of the 3 tasks: 1) Adjusting clothing prior to use, 2) Cleansing of perineal area, 3) Adjusting clot dinorah after use; How many tasks does the patient perform WITHOUT assistance of the helper? Three tasks with steadying assistance from the helper TOILETING - SCORE: 4-MIN BLADDER MANAGEMENT: Patient is on renal dialysis or peritoneal dialysis and no voiding activity BLADDER MANAGEMENT - SCORE: 7-IND BOWEL MANAGEMENT: Activity did not occur on this shift BOWEL MANAGEMENT - SCORE: 7-IND TRANSFERS: BED, CHAIR, WHEELCHAIR: TRANSFERS: BED, CHAIR, WHEELCHAIR - STEP 1: Does the patient require assistance with bed, chair, or wheelchair transfers? Yes. TRANSFERS: BED, CHAIR, WHEELCHAIR - STEP 2: Does the patient require the assistance of a helper? Yes. TRANSFERS: BED, CHAIR, WHEELCHAIR - STEP 3: How much assistance does the patient require from the helper? Steadying/guiding assistance TRANSFERS: BED, CHAIR, WHEELCHAIR - SCORE: 4-MIN TRANSFERS: TOILET: TRANSFERS: TOILET - STEP 1: Does the patient require assistance with toilet transfers? Yes. TRANSFERS: TOILET - STEP 2: Does the patient require the assistance of a helper? No. Patient only requires an assistive device hayward ch as a grab bar or special seat, OR s/he takes more than reasonable time to perform toilet transfers , OR there is a safety concern when s/he performs toilet transfers. TRANSFERS: TOILET - SCORE: 6-SRAVANTHI TRANSFERS: SHOWER: Activity did not occur on this shift TRANSFERS: SHOWER - SCORE: 0-UNK TRANSFERS: TUB: Activity did not occur on this shift TRANSFERS: TUB - SCORE: 0-UNK LOCOMOTION: WALK: Activity did not occur on this shift LOCOMOTION: WALK - SCORE: 0-UNK LOCOMOTION: WHEELCHAIR: Activity did not occur on this shift LOCOMOTION: WHEELCHAIR - SCORE: 0-UNK COMPREHENSION: COMPREHENSION - SCORE: 0-UNK EXPRESSION EXPRESSION - SCORE: 0-UNK SOCIAL INTERACTION: SOCIAL INTERACTION - SCORE: 0-UNK PROBLEM SOLVING: PROBLEM SOLVING - SCORE: 0-UNK MEMORY: MEMORY - SCORE: 0-UNK SIGNATURE PANEL: The following modified sections: Eating - Score, Grooming - Score, Bathing - Score, Dressing - Upper Body - Score, Dressing - Lower Body - Score, Toileting - Score, Bladder Management - Score, Bowel Man agement - Score, Transfers: Bed, Chair, Wheelchair - Score, Transfers: Toilet - Score, Transfers: Susie wer - Score, Transfers: Tub - Score, Locomotion: Walk - Score, Locomotion: Wheelchair - Score, Compre hension - Score, Expression - Score, Social Interaction - Score, Problem Solving - Score, Memory - Sc ore were [electronically] signed by Manpreet Kaur on MonJan 08 2018 15:54:01 GMT-0500 (Central Daylight Time)
--- NOTE | 2018-01-08 18:54 | R.PN ---
ENCOUNTER DATE AND TIME: 01/08/2018 17:53 (CDT) NAME MARIBEL MIJARES DATE OF : 1965 DATE OF ADMISSION: 01/02/2018 12:13 (CDT) Left foot gangrene, status post amputations. Right BKA SUBJECTIVE: Pt denied any Shortness of Breath. Pt denied any depression. Self-propelled wheelchair 1500' with modified independence. VITAL SIGNS Temperature: 97.8 F SBP/DBP: 155/84 Pulse: 70 Resp: 14 MEDICATION ALLERGIES: CLINDAMYCIN ENVIRONMENTAL ALLERGIES: None Known - Substance Allergies None Known - Other Allergies None Known CONSULT: Perform Consult Certified Prosthetic for prosthesis construction NURSING: - Shower allowing shower - Lab Results blood Sugar Check ACHS PRECAUTIONS: - Weight Bearing Precaution NWB left LE - Fall Precaution Bed and chair alarm ACTIVITIES OOB only with supervision THERAPIES: - Orthotics/Prosthetics Prosthetic Evaluation. - Occupational Therapy Evaluate and Treat. - Physical Therapy Evaluate and Treat. PHYSICAL EXAM - Gen Alert and awake Lying in bed No apparent distress Oriented to: person, time, and place - Skin left lower extremity incisions intact Normacephalic - Eyes No abnormalities - ENMT No abnormalities - Neck No abnormalities - CVS RRR - Chest No abnormalities - Abd Soft - GI Non distended Deferred - No abnormalities - Ext Good hemostasis at left foot surgical site., Right BKA is well bandaged. - MSK 4+/5 weakness in left upper and lower extremity - Neuro No focal deficits - Psych No abnormalities ASSESSMENT: Patient has realistic goal of being discharged at assistance level 6-Sharon to reside at Home with Fam jacqueline/Relatives. MDM/PLAN: - Diet Type Continue ADA 1800 - Physical Therapy Gait dysfunction - to improve, our physical therapists will perform initial evaluation of pt's statu s upon admission and devise an individualized program for Gait Training, and Wheel Chair mobility Inability to transfer - to improve, our physical therapists will perform initial evaluation of pt's status upon admission and devise an individualized program for Bed mobility Need for home safety evaluation - to improve, our physical therapists will perform initial evaluatio n of pt's status upon admission and devise an individualized program for Home Evaluation Need in caregiver upon discharge - to improve, our physical therapists will perform initial evaluati on of pt's status upon admission and devise an individualized program for Caregiver Training New precaution - to improve, our physical therapists will perform initial evaluation of pt's status upon admission and devise an individualized program for Patient precaution education Poor balance - to improve, our physical therapists will perform initial evaluation of pt's status up on admission and devise an individualized program for Balance Training Poor endurance - to improve, our physical therapists will perform initial evaluation of pt's status upon admission and devise an individualized program for Endurance Training Weakness - to improve, our physical therapists will perform initial evaluation of pt's status upon a dmission and devise an individualized program for Aquatic Therapy, Neuromuscular Reeducation, and Str engthening Achieving independence - to improve, our physical therapists will perform initial evaluation of pt's status upon admission and devise an individualized program for Community Reintegration Activities - Diet - Liquid Texture Continue Regular - Tube Feed Continue N/A - Lab Results blood Sugar Check ACHS - Weight Bearing Precaution NWB left LE - Fall Precaution Bed and chair alarm - N/A Perform Consult Certified Prosthetic for prosthesis construction - Diet - Solid Texture Continue Regular - Shower allowing shower - Occupational Therapy ADL deficits - to improve, our occupation therapists will perform initial evaluation of pt's status upon admission and devise an individualized program for Bathing, Bed mobility, Community Reintegratio n, Cooking, Dressing, Eating, Fine Motor Skills, Grooming, Homemaking, Kitchen Mobility, Laundry, Pat ient Education, Safety Awareness, Splinting - Positioning, Transfers(Toilet, Tub, Shower), and Wheel Chair Management Need for nonfarm animal caretaker - to improve, our occupation therapists will perform initial evaluation of pt's status upon admission and devise an individualized program for Caregiver Training Weakness - to improve, our occupation therapists will perform initial evaluation of pt's status upon admission and devise an individualized program for Aquatic Therapy, Balance, Endurance, UE ROM, and UE strengthening FUNCTIONAL STATUS: UPDATED AT WEEKLY TEAM CONFERENCE - Bladder Same accident frequency: 7-Ind - No accidents in the past 7 days - Bowel Same accident frequency: 7-Ind - No accidents in the past 7 days - Walking Same score based on distance walked: 0(N/A) - Wheelchair Same score based on distance traveled: 3(>=150ft) FUNCTIONAL STATUS: - Self-Care A. Eating Ind B. Grooming Sharon C. Bathing sup D. Dressing - Upper Sharon E. Dressing - Lower sup F. Toileting sup - Sphincter Control G: Bladder control Ind H: Bowel control Ind - Transfers Control I. Bed/Chair/Wheelchair Vinny J. Toilet Vinny K. Tub/Shower ADNO - Locomotion L. Walk/Wheelchair (C) sup L. Walk/Wheelchair (W) sup M. Stairs ADNO - Communication N. Comprehension (B) Ind O. Expression (B) Ind - Social Cognition P. Social Interaction Ind Q. Problem Solving Ind R. Memory Ind - Endurance Fair - Balance Fair - Safety Awareness Fair CURRENT [facility] [place]. DEFICITS: Balance, Locomotion, Endurance, Safety Awareness, Transfers Control, and Self-Care SIGNATURE PANEL: (CDT)
--- NOTE | 2018-01-10 15:31 | FAST ---
ENCOUNTER DATE AND TIME: 01/08/2018 08:00 (CDT) NAME MARIBEL MIJARES DATE OF : 1965 DATE OF ADMISSION: 01/02/2018 12:13 (CDT) PHONE: AGE: 52 SSN# [id number] GENDER: Male ENCOUNTER PHYSICIAN: Dr. Cameron Malcolm M.D. ADMISSION DIAGNOSIS: - Amputation of Limb 05 - Other Amputation (05.9) EATING: Activity did not occur on this shift EATING - SCORE: 0-UNK GROOMING: Activity did not occur on this shift GROOMING - SCORE: 0-UNK BATHING: Activity did not occur on this shift BATHING - SCORE: 0-UNK DRESSING - UPPER BODY: Activity did not occur on this shift Patient is not dressing in public clothing ARTICLES SCORE Total number of steps: 0 DRESSING - UPPER BODY - SCORE: 0-UNK DRESSING - LOWER BODY: Activity did not occur on this shift Patient is not dressing in public clothing ARTICLES SCORE Total number of steps: 0 DRESSING - LOWER BODY - SCORE: 0-UNK TOILETING: Activity did not occur on this shift TOILETING - SCORE: 0-UNK BLADDER MANAGEMENT: Activity did not occur on this shift BLADDER MANAGEMENT - SCORE: 7-IND BOWEL MANAGEMENT: Activity did not occur on this shift BOWEL MANAGEMENT - SCORE: 7-IND TRANSFERS: BED, CHAIR, WHEELCHAIR: Activity did not occur on this shift TRANSFERS: BED, CHAIR, WHEELCHAIR - SCORE: 0-UNK TRANSFERS: TOILET: Activity did not occur on this shift TRANSFERS: TOILET - SCORE: 0-UNK TRANSFERS: SHOWER: Activity did not occur on this shift TRANSFERS: SHOWER - SCORE: 0-UNK TRANSFERS: TUB: Activity did not occur on this shift TRANSFERS: TUB - SCORE: 0-UNK LOCOMOTION: WALK: Activity did not occur on this shift LOCOMOTION: WALK - SCORE: 0-UNK LOCOMOTION: WHEELCHAIR: LOCOMOTION: WHEELCHAIR - STEP 1: Does the patient need help to go 150 feet in a wheelchair? No. LOCOMOTION: WHEELCHAIR - SCORE: 6-SRAVANTHI LOCOMOTION: STAIRS: Activity did not occur on this shift LOCOMOTION: STAIRS - SCORE: 0-UNK COMPREHENSION: COMPREHENSION - SCORE: 0-UNK EXPRESSION EXPRESSION - SCORE: 0-UNK SOCIAL INTERACTION: SOCIAL INTERACTION - SCORE: 0-UNK PROBLEM SOLVING: PROBLEM SOLVING - SCORE: 0-UNK MEMORY: MEMORY - SCORE: 0-UNK SIGNATURE PANEL: The following modified sections: Transfers: Bed, Chair, Wheelchair - Score, Transfers: Toilet - Score , Locomotion: Walk - Score, Locomotion: Wheelchair - Score, Locomotion: Stairs - Score were [electron icallreyes] signed by Harvinder Sanchez PTA on MonJan 10 2018 14:31:08 GMT-0500 (Central Daylight Time)
--- NOTE | 2018-01-31 18:34 | R.DS ---
FACILITY [facility] MR# [id number] NAME MARIBEL MIJARES ADDRESS [address] [place] [address] [address] [phone] PHONE DATE OF 1965 AGE 52 N# [id number] GENDER Male DEXTERITY Right-handed MARITAL STATUS RACE ENCOUNTER PHYSICIAN Dr. Cameron Malcolm M.D. REFERRING DOCTOR Bhargav Pradhan REFERRING FACILITY [facility]ly [facility] DISCHARGE DIAGNOSIS: - Amputation of Limb 05 - Other Amputation (05.9) DISCHARGE COMORBIDITIES: - Tier 1 Dependence on renal dialysis [Z992] - Tier 3 Type 2 diabetes mellitus with diabetic polyneuropathy [E1142] - Non-Tiered Cellulitis of unspecified part of limb [Z90418] - N/A Peripheral vascular disease Coronary artery disease End stage renal disease Congestive heart failure Sepsis Hyperlipidemia Essential hypertension DATE OF ADMISSION 01/02/2018 12:13 (CDT) MEDICATION ALLERGIES: CLINDAMYCIN ENVIRONMENTAL ALLERGIES: None Known - Substance Allergies None Known - Other Allergies None Known CONSULT: Perform Consult Certified Prosthetic for prosthesis construction NURSING: - Shower allowing shower - Lab Results blood Sugar Check ACHS PRECAUTIONS: - Weight Bearing Precaution NWB left LE - Fall Precaution Bed and chair alarm ACTIVITIES OOB only with supervision THERAPIES: - Orthotics/Prosthetics Prosthetic Evaluation - Occupational Therapy Evaluate and Treat - Physical Therapy Evaluate and Treat HISTORY OF PRESENT ILLNESS: Patient has realistic goal of being discharged at assistance level 6-Sharon to reside at Home with Fam jacqueline/Relatives. HOSPITAL COURSE: On 01/04/2018 the following precautions were removed for the patient: Fall Precaution - Bed and kourtney r alarm. On 01/01/2018 the following precautions were added for the patient: Fall Precaution - Bed and chair a larm. On 01/02/2018 the following precautions were added for the patient: Fall Precaution - Bed and chair alarm. On 01/08/2018 the following precautions were added for the patient: Fall Precaution - Bed and chair alarm. The following precautions were removed for the patient: Fall Precaution - Bed and chair alarm, and Fa ll Precaution - Bed and chair alarm. On 01/01/2018 the following precautions were added for the patient: Weight Bearing Precaution - NWB l eft LE. On 01/02/2018 the following precautions were added for the patient: Weight Bearing Precaution - NWB left LE. On 01/04/2018 the following precautions were removed for the patient: Weight Bearing Precaution - NW B left LE. On 01/08/2018 the following precautions were added for the patient: Weight Bearing Precaution - NWB left LE. DIET - LIQUID TEXTURE: On 01/01/2018 Pt was upgraded to Regular Diet - Liquid Texture. DIET - SOLID TEXTURE: On 01/01/2018 Pt was upgraded to Regular Diet - Solid Texture. DIET TYPE: On 01/01/2018 Pt was changed to ADA 1800 Diet Type. FALL PRECAUTION: TUBE FEED: On 01/01/2018 Pt was changed to N/A Tube Feed. WEIGHT BEARING PRECAUTION: DISCHARGE PHYSICAL EXAM - Gen Alert and awake Lying in bed No apparent distress Oriented to: person, time, and place - Skin left lower extremity incisions intact Normacephalic - Eyes No abnormalities - ENMT No abnormalities - Neck No abnormalities - CVS RRR - Chest No abnormalities - Abd Soft - GI Non distended Deferred - No abnormalities - Ext Good hemostasis at left foot surgical site., Right BKA is well bandaged. - MSK 4+/5 weakness in left upper and lower extremity - Neuro No focal deficits - Psych No abnormalities FUNCTIONAL STATUS: - Self-Care A. Eating 7-Ind 7-Ind B. Grooming 6-Sharon 7-Ind C. Bathing 5-sup 5-sup D. Dressing - Upper 6-Sharon 6-Sharon E. Dressing - Lower 5-sup 6-Sharon F. Toileting 5-sup 6-Sharon - Sphincter Control G: Bladder control 7-Ind 7-Ind H: Bowel control 7-Ind 7-Ind - Transfers Control I. Bed/Chair/Wheelchair 4-Vinny 7-Ind J. Toilet 4-Vinny 6-Sharon K. Tub/Shower 0-ADNO 6-Sharon - Locomotion L. Walk/Wheelchair (C) 5-sup 6-Sharon L. Walk/Wheelchair (W) 5-sup 0-ADNO M. Stairs 0-ADNO 0-ADNO - Communication N. Comprehension (B) 7-Ind 7-Ind O. Expression (B) 7-Ind 7-Ind - Social Cognition P. Social Interaction 7-Ind 7-Ind Q. Problem Solving 7-Ind 7-Ind R. Memory 7-Ind 7-Ind - Endurance Fair - Balance Fair - Safety Awareness Fair DISCHARGE INSTRUCTIONS: - N/A Eliquis 2.5 mg twice daily. DISCHARGE PLAN, FOLLOW UP CARE PROVISIONS: - Estimated Length of Stay (days) 13. - Consensus on plan Discharge plan has been discussed with primary caregiver. Patient/Family is in agreement with the sussy n. Primary caregiver is in agreement with the plan. - Patient/Family Goals Return home with assistance. - Planned Living Setting Upon Discharge Home, to live with Family/Relatives. SIGNATURE PANEL: (CDT)
== END 2018-01-08 16:46 | disposition short-term general hospital (02) | DRG 299 ==
LOC: 5TH 01-02 12:02
PROVIDERS: ADMIT Psychiatry & Neurology Neurology with Special Qualifications in Child Neurology; ATTEND Psychiatry & Neurology Neurology with Special Qualifications in Child Neurology
PROC: 5A1D70Z Performance of Urinary Filtration, Intermittent, Less than 6 Hours Per Day (ICD-10-PCS; principal; 2018-01-03)
PROC: 5A1D70Z Performance of Urinary Filtration, Intermittent, Less than 6 Hours Per Day (ICD-10-PCS; 2018-01-05)
DX: E11.52 Type 2 diabetes mellitus with diabetic peripheral angiopathy with gangrene (principal); N18.6 End stage renal disease; I96 Gangrene, not elsewhere classified; I13.2 Hypertensive heart and chronic kidney disease with heart failure and with stage 5 chronic kidney disease, or end stage renal disease; E87.1 Hypo-osmolality and hyponatremia; I25.10 Atherosclerotic heart disease of native coronary artery without angina pectoris; E11.22 Type 2 diabetes mellitus with diabetic chronic kidney disease; I50.9 Heart failure, unspecified; E78.5 Hyperlipidemia, unspecified; I73.9 Peripheral vascular disease, unspecified; N25.0 Renal osteodystrophy; N18.9 Chronic kidney disease, unspecified; D63.1 Anemia in chronic kidney disease; R04.0 Epistaxis; Z99.2 Dependence on renal dialysis; Z89.511 Acquired absence of right leg below knee
CPT/HCPCS: 36415; 80048; 80202; 82040; 82962; 83735; 84134; 85025; 85027; 85610; 85730; 90935; J1644; J3590; Q4081

== ENCOUNTER 2018-01-08 16:45 | Inpatient (IN) | payer OTHER, BC ==
[2018-01-08] MEDS ORDERED: ONDANSETRON 4 MG/2 ML VIAL IV PRN (17:00)
[2018-01-08] MEDS ORDERED: VANCOMYCIN/NS 1 gm 1 GM/250 ML BAG IVPB SCH (17:00)
[2018-01-08] MEDS ORDERED: ALPRAZOLAM 1 MG TABLET PO PRN (17:00)
[2018-01-08] MEDS ORDERED: hydrOXYzine HCl 25 MG TAB PO PRN (17:00)
[2018-01-08] MEDS ORDERED: CYCLOBENZAPRINE 10 MG TAB PO PRN (17:00)
--- NOTE | 2018-01-08 17:15 | P.HP ---
Certification for Inpatient Patient admitted to: Inpatient With expected LOS: >2 Midnights Patient will require the following post-hospital care: Rehabilitation Practitioner: I am a practitioner with admitting privileges, knowledge of patient current condition, hospital course, and medical plan of care. Services: Services provided to patient in accordance with Admission requirements found in Title 42 Section 412.3 of the Code of Federal Regulations Patient History Date of Service: 01/08/18 Primary Care Provider: Dr. Alvarado; Nephrology-Dr. Pacheco; Surgery-Dr. Mclaughlin Reason for admission: Left foot gangrene requiring surgery History of Present Illness: 52-year-old male presented to the medical floor after transferred from rehabilitation. Patient had seen surgery earlier today. Patient with known gangrene to the left foot. Patient with multiple medical problems including severe peripheral vascular disease, CAD, diabetes, hypertension, and end-stage renal disease. The patient recently had amputation of the left 1st 3rd and 4th digit. It was recommended that the patient had a below-knee amputation on the last amputation. The patient declined. It was also recommended that it may be best to do an above knee amputation but the patient declined as well. Surgery recommended below-knee amputation today. Patient was agreeable. Therefore patient was transition from the rehabilitation floor to medical floor in preparation for surgery. Patient currently stable this time. Pain well controlled. Patient denies any nausea, vomiting, chest pain or shortness of breath. Patient was in dialysis on initial evaluation. Allergies Clindamycin Adverse Reaction (Intermediate, Uncoded 12/26/17 15:57) Itching/Hives/Rash Home medications list reviewed: Yes Home Medications: ALPRAZolam [Xanax*] 1 mg PO BEDTIME PRN tab 01/08/18 Clopidogrel Bisulfate [Plavix*] 75 mg PO DAILY tablet 01/08/18 Collagenase [Santyl Ointment*] 1 appl TOP BID tube 01/08/18 Cyclobenzaprine [Flexeril*] 10 mg PO TIDP PRN tab 01/08/18 Epoetin [Procrit*] 10,000 unit IV EVERY HD vial 01/08/18 Furosemide [Lasix*] 80 mg PO DAILY tab 01/08/18 Heparin [Heparin Sodium*] 5,000 unit SQ Q12HR vial 01/08/18 Hydrocodone 10/APAP 325 [Custar 10/325*] 1 tab PO Q6H PRN tab 01/08/18 Hydrocortisone Cream [Hydrocortisone 1% Cream*] 1 appl TOP TIDP PRN tube Insulin -Regular Human [Novolin -R*] See Protocol SQ ACHS ml 01/08/18 William [William*] 1 pkt PO BID powd.pack 01/08/18 Lisinopril [Prinivil*] 10 mg PO BID tab 01/08/18 Mannitol 25% [Mannitol*] 12.5 gm IV EVERY HD PRN vial 01/08/18 Metoprolol Tartrate [Lopressor*] 25 mg PO [id number] tab 01/08/18 Pregabalin [Lyrica*] 100 mg PO BID cap 01/08/18 Ranitidine [Zantac*] 300 mg PO DAILY tab 01/08/18 Sevelamer Carbonate [Renvela*] 1,600 mg PO TIDWM tablet 01/08/18 - Past Medical/Surgical History Diabetic: Yes -: Diabetes mellitus type 2 -: HTN -: Diabetic neuropathy -: Congestive heart failure -: Coronary artery disease with multiple stents -: End-stage renal disease, dialysis m,w,f -: Hyperlipidemia -: Noncompliance of taking some meds during dialysis -: Anxiety -: Severe peripheral vascular disease -: GERD -: Cardiac stents x12 -: open heart surgery as a child 5 -: Ear tubes -: pacemaker placement, and removed, per pt MD stated he did not need it -: Right below-knee amputation -: Amputation to multiple digits on the left side, foot Psychosocial/ Personal History: Patient is of 15 years, has 1 child, he does not work. - Family History Mother -: Heart disease, Hypertension, Diabetes, Other (see notes) Notes: from alzheimer Father -: Heart disease, Cancer Notes: from colon cancer Brother -: Heart disease, Diabetes, Kidney disease - Social History Smoking Status: Unknown if ever smoked Alcohol use: No CD- Drugs: No Caffeine use: No Place of Residence: Home Review of Systems General: As per HPI Eyes: Unremarkable ENT: Unremarkable Respiratory: Unremarkable Cardiovascular: Unremarkable Gastrointestinal: Unremarkable Genitourinary: Unremarkable Musculoskeletal: As per HPI Integumentary: As per HPI Neurological: Unremarkable Lymphatics: Unremarkable Physical Examination - Physical Exam General: Alert, In no apparent distress, Oriented x3, Cooperative HEENT: Atraumatic, Normocephalic, Mucous membr. moist/pink Neck: Supple, No Thyromegaly Respiratory: Clear to auscultation bilaterally, Normal air movement Cardiovascular: Normal pulses, Regular rate/rhythm Gastrointestinal: Normal bowel sounds, Soft and benign, Non-distended, No tenderness, No masses, No rebound, No guarding Musculoskeletal: Other (Bandage to the left foot in place. Patient with known left foot gangrene. Patient with right below-knee amputation) Neurological: Normal speech, Normal strength at 5/5 x4 extr, Normal tone Assessment and Plan - Problems (Diagnosis) (1) Gangrene Current Visit: No Status: Acute Plan: Left foot gangrene as per surgery. Surgery evaluated and discussed with the patient about the possibility of left below knee amputation. Above knee amputation was also discussed and highly recommended. Patient is agreeable for below-knee amputation at this time. Currently on vancomycin and Zosyn. Will continue with IV antibiotic therapy. Surgery likely in the next 1-2 days. Will discuss with surgery. Patient currently in dialysis. Patient will continue with dialysis Mondays, Wednesdays and Fridays. (2) CHF (congestive heart failure) Onset Date: 05/10/16 Current Visit: No Status: Chronic Plan: Will continue with fluid restriction. Will also continue with Lasix. Stable this time. Qualifiers: Heart failure type: systolic Heart failure chronicity: chronic Qualified Code(s): I50.22 - Chronic systolic (congestive) heart failure (3) Coronary artery disease Onset Date: 05/10/16 Current Visit: No Status: Chronic Plan: Patient with chronic renal disease stable this time. Will continue with his medication. Will check with surgery to see if Plavix will need to be on hold. Will provide DVT prophylaxis. Qualifiers: (4) Diabetes mellitus Onset Date: 05/10/16 Current Visit: No Status: Chronic Plan: Will continue sliding scale. Will monitor and adjust appropriately. Qualifiers: Diabetes mellitus type: type 2 Diabetes mellitus half-way insulin use: unspecified meterman insulin use status Diabetes mellitus complication status : with skin complications Diabetes mellitus complication detail: with other skin complication Qualified Code(s): E11.628 - Type 2 diabetes mellitus with other skin complications (5) ESRD (end stage renal disease) Onset Date: 06/01/15 Current Visit: No Status: Chronic Plan: Will continue with dialysis Mondays, Wednesdays and Fridays. Nephrology consulted to further assess. (6) Hypertension Onset Date: 08/29/16 Current Visit: No Status: Chronic Plan: Will continue with medication. Will monitor and adjust appropriately. Qualifiers: Hypertension type: essential hypertension (7) PVD (peripheral vascular disease) Onset Date: 10/19/17 Current Visit: No Status: Chronic Plan: Patient with known history of peripheral vascular disease. Patient with history of prior right below-knee amputation. Surgery had recommended left above knee amputation but patient prefers below-knee amputation. Continue as above. (8) Anxiety Current Visit: Yes Status: Chronic Plan: Will continue with his medication as needed. (9) GERD (gastroesophageal reflux disease) Current Visit: Yes Status: Chronic Plan: Will continue with his medication. Qualifiers: Esophagitis presence: esophagitis presence not specified Qualified Code(s) : K21.9 - Gastro-esophageal reflux disease without esophagitis Discharge Plan: Other (Inpatient rehab) Plan to discharge in: Greater than 2 days - Advance Directives Does patient have a Living Will: No Does patient have a Durable POA for Healthcare: No - Code Status/Comfort Care Code Status Assessed: Yes (Patient is full code.) Code Status: Full Code Time Spent Managing Pts Care (In Minutes): 55
[2018-01-08] MEDS: SEVELAMER CARBONATE 800 MG TABLET PO SCH (19:07)
[2018-01-08] MEDS: PIPER/TAZO/NS 2.25gm 2.25 GM/50 ML BAG IVPB SCH (19:07)
[2018-01-08] MEDS: HYDROCODONE/APAP 10/325 TAB PO PRN (19:22)
[2018-01-08 20:06] VITALS: BMI 23.6
[2018-01-08] MEDS: INSULIN -REGULAR HUMAN 50 UNIT/0.5 ML ML SQ SCH (21:00)
[2018-01-08] MEDS: HEPARIN 5000 UNIT/ML 1 ML VIAL SQ SCH (21:00)
[2018-01-08] MEDS: LISINOPRIL 10 MG TAB PO SCH (21:18)
[2018-01-08] MEDS: PREGABALIN 50 MG CAP PO SCH (21:19)
[2018-01-08] MEDS: RANITIDINE 150 MG TABLET PO SCH (21:19)
[2018-01-09] MEDS: PIPER/TAZO/NS 2.25gm 2.25 GM/50 ML BAG IVPB SCH ×3 (01:36→16:52)
--- NOTE | 2018-01-09 02:16 | PN ---
Date of Progress Note: 01/08/2018 Chief Complaint: End-stage renal disease, on dialysis. History Of Present Illness: The patient has multiple medical problems including history of diabetic kidney disease, hypertensive kidney disease, and severe peripheral vascular disease. Previously, he underwent below-knee amputation. The patient developed left 3rd and 4th toes gangrene. He is awaiting for BKA. Review of Systems: Denies fever or chills. Physical Examination: Lungs: Clear to auscultation bilaterally. Heart: S1 and S2. Abdomen: Soft and benign. Extremities: Dressing in place. Laboratory Data: Hemoglobin 9.9, WBC 9.3, platelet count is 215,000. Sodium 135, potassium 4.1, chloride 99, CO2 of 22, BUN 80, creatinine 6.6, calcium of 9.1. Impression And Plan: 1. End-stage renal disease, fluid overload. The patient is to have dialysis today with ultrafiltration. 2. Hypertension. Blood pressure in the acceptable control. 3. Anemia with chronic kidney disease. Continue HALIMA. 4. Peripheral vascular disease, nonhealing extremity wound gangrene. The patient will have amputation. Surgical consultation was requested. DERICK Voice ID: [id number] Report ID: [id number] HEATHER
[2018-01-09] MEDS: HYDROCODONE/APAP 10/325 TAB PO PRN (03:33)
[2018-01-09 04:56] LABS: Absolute Lymphocytes (CBC) 0.7 K/uL (0.7-4.9); Absolute Monocytes 0.5 K/uL (0.1-1.3); Absolute Neutrophil 6.8 K/uL (1.8-8.0); Hematocrit 32.8 % (39.6-49.0); Lymphocytes % 8.6 % (15.3-44.8); MCH 28.9 pg (27.0-35.0); MCV 89.1 fL (80-100); MPV 11.4 fL (7.6-11.3); Monocytes % 6.4 % (3.3-12.3); RBC Red Blood Cell Count 3.69 M/uL (4.33-5.43)
[2018-01-09 05:18] LABS: Magnesium 2.1 mg/dL (1.8-2.4); Potassium 3.7 mmol/L (3.5-5.1)
[2018-01-09] MEDS: METOPROLOL TAR 25 MG TAB PO SCH ×2 (06:00→10:07)
[2018-01-09] MEDS: INSULIN -REGULAR HUMAN 50 UNIT/0.5 ML ML SQ SCH ×4 (07:30→20:05)
--- NOTE | 2018-01-09 08:41 | P.PN ---
Subjective Date of Service: 01/09/18 Primary Care Provider: Dr. Alvarado; Nephrology-Dr. Pacheco; Surgery-Dr. Mclaughlin Chief Complaint: Left foot gangrene requiring surgery Subjective: Doing well Physical Examination - Vital Signs Temperature: 97.6 F Blood Pressure: 148/82 Pulse: 75 Respirations: 16 Pulse Ox (%): 99 - Physical Exam General: Alert, In no apparent distress, Oriented x3, Cooperative HEENT: Atraumatic Neck: Supple Respiratory: Clear to auscultation bilaterally, Normal air movement Cardiovascular: Normal pulses, Regular rate/rhythm Gastrointestinal: Normal bowel sounds, Soft and benign, Non-distended, No masses , No rebound, No guarding Musculoskeletal: No erythema, No tenderness, No warmth Integumentary: Other (Left lower extremity bandaged.) Neurological: Normal speech, Normal strength at 5/5 x4 extr, Normal tone, Normal affect - Studies Laboratory Data (last 24 hrs) 01/09/18 03:53: Sodium 139, Potassium 3.7, BUN 45 H D, Creatinine 5.20 H* D, Glucose 127 H, Magnesium 2.1 01/09/18 03:53: WBC 8.5, Hgb 10.6 L, Hct 32.8 L, Plt Count 206 Medications List Reviewed: Yes Assessment & Plan - Problems (Diagnosis) (1) Gangrene Current Visit: No Status: Acute Plan: Left foot gangrene as per surgery. Surgery plans to take the patient later today for left below-knee amputation. Patient with gangrene of the foot. Patient with prior amputations of toes. Patient currently on vancomycin and Zosyn. Will continue IV antibiotic therapy. Pharmacy to adjust. Patient would be a good candidate for inpatient rehab after surgery. Will discuss with nephrology social worker. (2) CHF (congestive heart failure) Onset Date: 05/10/16 Current Visit: No Status: Chronic Plan: Will continue with fluid restriction. Will also continue with Lasix. Stable this time. Qualifiers: Heart failure type: systolic Heart failure chronicity: chronic Qualified Code(s): I50.22 - Chronic systolic (congestive) heart failure (3) Coronary artery disease Onset Date: 05/10/16 Current Visit: No Status: Chronic Plan: Stable this time. Patient on Plavix. Continue DVT prophylaxis. Qualifiers: (4) Diabetes mellitus Onset Date: 05/10/16 Current Visit: No Status: Chronic Plan: Will continue sliding scale. Will monitor and adjust appropriately. Qualifiers: Diabetes mellitus type: type 2 Diabetes mellitus parts counterman insulin use: unspecified usp insulin use status Diabetes mellitus complication status : with skin complications Diabetes mellitus complication detail: with other skin complication Qualified Code(s): E11.628 - Type 2 diabetes mellitus with other skin complications (5) ESRD (end stage renal disease) Onset Date: 06/01/15 Current Visit: No Status: Chronic Plan: Will continue with dialysis Mondays, Wednesdays and Fridays. Nephrology consulted to further assess. (6) Hypertension Onset Date: 08/29/16 Current Visit: No Status: Chronic Plan: Will continue with medication. Will monitor and adjust appropriately. Qualifiers: Hypertension type: essential hypertension (7) PVD (peripheral vascular disease) Onset Date: 10/19/17 Current Visit: No Status: Chronic Plan: Patient with known history of peripheral vascular disease. Patient with history of prior right below-knee amputation. Surgery had recommended left above knee amputation but patient prefers below-knee amputation. Continue as above. (8) Anxiety Current Visit: Yes Status: Chronic Plan: Will continue with his medication as needed. (9) GERD (gastroesophageal reflux disease) Current Visit: Yes Status: Chronic Plan: Will continue with his medication. Qualifiers: Esophagitis presence: esophagitis presence not specified Qualified Code(s) : K21.9 - Gastro-esophageal reflux disease without esophagitis Discharge Plan: Other (Inpatient rehab) Plan to discharge in: Greater than 2 days Time Spent Managing Pts Care (In Minutes): 55
[2018-01-09] MEDS: COLLAGENASE 30 GM OINTMENT TOP SCH (09:00)
[2018-01-09] MEDS: PREGABALIN 50 MG CAP PO SCH ×2 (10:06→20:56)
[2018-01-09] MEDS: CLOPIDOGREL 75 MG TABLET PO SCH (10:06)
[2018-01-09] MEDS: FUROSEMIDE 40 MG TABLET PO SCH (10:06)
[2018-01-09] MEDS: SEVELAMER CARBONATE 800 MG TABLET PO SCH ×3 (10:06→16:54)
[2018-01-09] MEDS: LISINOPRIL 10 MG TAB PO SCH ×2 (10:07→20:56)
[2018-01-09] MEDS: HEPARIN 5000 UNIT/ML 1 ML VIAL SQ SCH ×2 (10:09→20:56)
[2018-01-09] MEDS: RANITIDINE 150 MG TABLET PO SCH (20:56)
[2018-01-09] MEDS ORDERED: CETIRIZINE HCL 5 MG TABLET PO ONE (21:23)
[2018-01-10] MEDS: HYDROCODONE/APAP 10/325 TAB PO PRN (00:05)
[2018-01-10] MEDS: PIPER/TAZO/NS 2.25gm 2.25 GM/50 ML BAG IVPB SCH ×3 (00:05→19:08)
--- NOTE | 2018-01-10 02:56 | PN ---
Date of Progress Note: 01/09/2018 Subjective: The patient had worsening gangrene. The patient planned for surgery today, feeling okay . Physical Examination: Vital Signs: Blood pressure 150/83, pulse of 78. Chest: Clear to auscultation. Heart: S1, S2. Regular. Abdomen: Soft, nontender. Extremity: Right below-knee amputation. Laboratory Data: WBC 8.5, H and H 10.6/32.8. Sodium 139, potassium 3.7, bicarb 27, BUN 45, creatini ne 5.2, calcium 8.7. Current Medications: The patient on it includes, 1.Zosyn. 2.Vancomycin. 3.Cetirizine. 4.Flexeril. 5.Plavix. 6.Metoprolol. 7.Lisinopril 10 b.i.d. 8.Lasix 80. 9.Renvela. Assessment And Plan: 1.End-stage renal disease, stable. We will arrange for dialysis tomorrow. We will dialyze the uyen ent on low-potassium bath. 2.Hypertension, controlled, optimal. Continue current medication. 3.Hypokalemia. Given that the patient is going to have surgery tomorrow, I am not going to do any r eplacement. 4.Peripheral vascular disease with ischemia. I am going to go ahead and dialyze the patient tomorro w and we will give DDAVP to decrease the bleeding. We will follow up. Continue current antibiotic. Case was discussed with the patient, discussed with the staff, agreed on the plan. HARRIET Voice ID: [id number] Report ID: [id number]
[2018-01-10 05:52] LABS: Absolute Lymphocytes (CBC) 0.9 K/uL (0.7-4.9); Absolute Monocytes 0.6 K/uL (0.1-1.3); Absolute Neutrophil 6.5 K/uL (1.8-8.0); Basophils % 2.6 % (0-1.3); Eosinophils % 2.6 % (0-4.4); Hematocrit 31.9 % (39.6-49.0); Lymphocytes % 10.1 % (15.3-44.8); MCH 29.1 pg (27.0-35.0); MCV 90.2 fL (80-100); Monocytes % 7.4 % (3.3-12.3); RBC Red Blood Cell Count 3.54 M/uL (4.33-5.43)
[2018-01-10 05:57] LABS: Magnesium 2.2 mg/dL (1.8-2.4)
[2018-01-10] MEDS ORDERED: DESMOPRESSIN 4 MCG/ML AMP IV ONE (06:30)
[2018-01-10] MEDS: INSULIN -REGULAR HUMAN 50 UNIT/0.5 ML ML SQ SCH ×4 (07:30→20:01)
[2018-01-10] MEDS: SEVELAMER CARBONATE 800 MG TABLET PO SCH ×3 (08:00→19:53)
[2018-01-10] MEDS: HEPARIN 5000 UNIT/ML 1 ML VIAL SQ SCH ×2 (09:00→20:12)
[2018-01-10] MEDS: COLLAGENASE 30 GM OINTMENT TOP SCH (09:00)
[2018-01-10] MEDS: CLOPIDOGREL 75 MG TABLET PO SCH (09:00)
[2018-01-10 09:01] LABS: Anisocytosis 1+; Blood Morphology Comment NOTED (NOT SEEN); Platelet Estimate ADEQ
[2018-01-10] MEDS: PREGABALIN 50 MG CAP PO SCH ×2 (10:03→20:10)
[2018-01-10] MEDS: FUROSEMIDE 40 MG TABLET PO SCH (10:03)
[2018-01-10] MEDS: LISINOPRIL 10 MG TAB PO SCH ×2 (10:03→20:10)
[2018-01-10] MEDS ORDERED: BUPIVACAINE 0.5% PF 10 ML VIAL ONE (11:03)
[2018-01-10] MEDS ORDERED: NA CHLORIDE 0.9% IV ONE (11:15)
[2018-01-10] MEDS ORDERED: DESMOPRESSIN IV ONE (11:15)
[2018-01-10] MEDS ORDERED: NA CHLORIDE 0.9% 500 ML ONE (11:23)
--- NOTE | 2018-01-10 11:46 | P.PN ---
Subjective Date of Service: 01/10/18 Primary Care Provider: Dr. Alvarado; Nephrology-Dr. Pacheco; Surgery-Dr. Mclaughlin Chief Complaint: Left foot gangrene requiring surgery Subjective: Doing well Physical Examination - Vital Signs Temperature: 97.4 F Blood Pressure: 146/96 Pulse: 65 Respirations: 14 Pulse Ox (%): 100 - Physical Exam General: Alert, In no apparent distress, Oriented x3, Cooperative HEENT: Atraumatic Neck: Supple Respiratory: Clear to auscultation bilaterally, Normal air movement Cardiovascular: Normal pulses, Regular rate/rhythm Gastrointestinal: Normal bowel sounds, Soft and benign, Non-distended, No tenderness, No masses, No rebound, No guarding Musculoskeletal: No erythema, No tenderness, No warmth Neurological: Normal speech, Normal strength at 5/5 x4 extr, Normal tone, Normal affect - Studies Laboratory Data (last 24 hrs) 01/10/18 04:46: Sodium 142, Potassium 4.0, BUN 61 H, Creatinine 6.60 H* D, Glucose 107 H, Magnesium 2.2 01/10/18 04:46: WBC 8.5, Hgb 10.3 L, Hct 31.9 L, Plt Count 175 Medications List Reviewed: Yes Assessment & Plan - Problems (Diagnosis) (1) Gangrene Current Visit: No Status: Acute Plan: Left foot gangrene as per surgery. Surgery is planned for today. Patient will have left below-knee amputation. Will continue IV antibiotic therapy including vancomycin and Zosyn. Patient will have dialysis after surgery. Will continue monitor and adjust. Patient will be a good candidate for inpatient rehab after surgery. (2) CHF (congestive heart failure) Onset Date: 05/10/16 Current Visit: No Status: Chronic Plan: Will continue with fluid restriction. Will also continue with Lasix. Stable this time. Qualifiers: Heart failure type: systolic Heart failure chronicity: chronic Qualified Code(s): I50.22 - Chronic systolic (congestive) heart failure (3) Coronary artery disease Onset Date: 05/10/16 Current Visit: No Status: Chronic Plan: Stable this time. Patient on Plavix. Continue DVT prophylaxis. Qualifiers: (4) Diabetes mellitus Onset Date: 05/10/16 Current Visit: No Status: Chronic Plan: Will continue sliding scale. Will monitor and adjust appropriately. Qualifiers: Diabetes mellitus type: type 2 Diabetes mellitus longterm insulin use: unspecified rat exterminator insulin use status Diabetes mellitus complication status : with skin complications Diabetes mellitus complication detail: with other skin complication Qualified Code(s): E11.628 - Type 2 diabetes mellitus with other skin complications (5) ESRD (end stage renal disease) Onset Date: 06/01/15 Current Visit: No Status: Chronic Plan: Will continue with dialysis Mondays, Wednesdays and Fridays. Case discussed with nephrology. Patient will have dialysis after surgery. (6) Hypertension Onset Date: 08/29/16 Current Visit: No Status: Chronic Plan: Will continue with medication. Will monitor and adjust appropriately. Qualifiers: Hypertension type: essential hypertension (7) PVD (peripheral vascular disease) Onset Date: 10/19/17 Current Visit: No Status: Chronic Plan: Patient with known history of peripheral vascular disease. Patient with history of prior right below-knee amputation. Surgery had recommended left above knee amputation but patient prefers below-knee amputation. Continue as above. (8) Anxiety Onset Date: 01/09/18 Current Visit: Yes Status: Chronic Plan: Will continue with his medication as needed. (9) GERD (gastroesophageal reflux disease) Onset Date: 01/09/18 Current Visit: Yes Status: Chronic Plan: Will continue with his medication. Qualifiers: Esophagitis presence: esophagitis presence not specified Qualified Code(s) : K21.9 - Gastro-esophageal reflux disease without esophagitis Discharge Plan: Other (Inpatient rehab) Plan to discharge in: Greater than 2 days Time Spent Managing Pts Care (In Minutes): 55
[2018-01-10] MEDS ORDERED: EPOETIN ALFA 10,000 UNIT/ML VIAL IV SCH (12:00)
--- NOTE | 2018-01-10 12:44 | P.BOP ---
Preoperative diagnosis: Left foot gangrene Postoperative diagnosis: same Primary procedure: Left BKA Estimated blood loss: <50cc Findings: as above Anesthesia: General Complications: None Transferred to: Recovery Room Condition: Good
[2018-01-10] MEDS: MORPHINE 4 MG/ML SYR ONE ×4 (13:16→13:40)
--- NOTE | 2018-01-10 16:42 | PN ---
Date of Progress Note: 01/10/2018 Subjective: The patient doing well. No nausea. No vomiting. The patient planned for surgery today . Objective: Vital Signs: Blood pressure of 146/96, pulse of 65, afebrile. Chest: Clear to auscultation. Heart: S1, S2. Regular. Abdomen: Soft, nontender. Extremities: No edema. Laboratory Data: H and H 10.3/31.9. Sodium 142, potassium 4, bicarb 25, BUN 61, creatinine 6.6, apollo cium 8.9, and magnesium 2.2. Medications: Current medications the patient on include; 1.Zosyn. 2.Vancomycin. 3.Cetirizine. 4.Atarax. 5.Flexeril. 6.Lisinopril 10 b.i.d. 7.Metoprolol 25 daily. 8.Lasix 80 daily. 9.Renvela 2 tablets with each meal. 10.Lyrica. 11.Xanax. Assessment And Plan: 1.End-stage renal disease, normal volume. No hyperkalemia. Cleared from the renal standpoint for s urgery today. We will give DDAVP 30 minute before the surgery and we will follow up. 2.Hypertension, controlled, optimal. Continue current medication. 3.Anemia of chronic kidney disease. I am going to go ahead and resume the Epogen for the patient. The patient is going to receive dialysis post surgery. 4.Peripheral vascular disease, gangrenous leg. Plan for below-knee amputation. We will follow up with surgery. 5.Diabetes, as by primary. ULYSSES/DONNA Voice ID: [id number] Report ID: [id number]
[2018-01-10] MEDS: MORPHINE 4 MG/ML SYR IV PRN (19:57)
[2018-01-10] MEDS: RANITIDINE 150 MG TABLET PO SCH (20:11)
--- NOTE | 2018-01-11 00:21 | OP ---
Date of Procedure: 01/10/2018 Surgeon: Inocencio Mclaughlin MD Bus Analyst: JON Sullivan. Preoperative Diagnoses: Left foot gangrene, severe peripheral vascular disease, end-stage renal dise ase. Postoperative Diagnoses: Left foot gangrene, severe peripheral vascular disease, end-stage renal dis ease. Procedure: Left below-knee amputation. Anesthesia: General plus local. Findings: Left foot gangrene. Indications: This is a case of a 52-year-old patient with severe peripheral vascular disease. He santos s previous amputations in the past, previous stent in the past, revascularization, everything he has been able to do, but he still developed gangrene of the left foot. Patient needs below-knee amputati on. He has previous below-knee amputation on the opposite side. We always recommended him to have t he above-knee since the circulation even below knee is not ideal, but he only consented for the left below-knee amputation and because of the gangrene we need to do that. So, the benefits, alternatives , and risks were explained which include but are not limited to infection, bleeding, damage to adjace nt structures, anesthesia complication, failure of the flap, [place], even . He also understands thi s may not relieve any symptoms. He might need more than one surgical intervention, and he still sign ed a consent. Description Of Procedure: The patient was brought to the operating room and placed in the supine pos ition. A time-out was called. Anesthesia was done without complication. The left leg was prepped a nd draped in a sterile fashion. Anterior and posterior skin incisions were aligned with the help of a marking pen. Anterior incision was made about 12 cm below the tibial tuberosity and extended media l and lateral over the edges of the knee along the gastrocnemius muscle. The skin incision was then extended distally about 10-12 cm. The skin and subcutaneous tissue were carefully incised with a sha rp knife down to the fascia. Several veins were identified and ligated. The fascia of the muscle wa s then divided with electrocautery at the level of the anterior incision. The muscles of the anterio r and lateral compartments were carefully divided using Bovie cauterizer exposing the anterior tibial vessels and it was suture ligated although they were very calcified. The interosseous membrane was carefully incised. Tibial periosteum was incised and then using a periosteal elevator approximately about 2 cm. The tibia was then transected using a Gigli saw about 2 cm above the skin with an anteri or bevel. The fibula was then exposed, dissected circumferentially, and transected about 2 cm proxim al to the tibia with a bone cutter. The amputation was then completed, transecting the soleus muscle obliquely and a gastrocnemius muscle. Hemostasis was obtained. Sharp bony edges were carefully amber ed. DANIELLE drain was inserted to a different incision. The fascia of the anterior and posterior flaps w ere carefully approximated with #1 Vicryl. DANIELLE was secured in place with nylon. The skin was then ap proximated with elissa. Sponge count and instrument counts were correct. The patient tolerated the procedure well. The patient was sent to recovery in stable condition. YARIEL/DONNA Voice ID: [id number] Report ID: [id number]
[2018-01-11] MEDS: PIPER/TAZO/NS 2.25gm 2.25 GM/50 ML BAG IVPB SCH ×3 (01:16→17:24)
[2018-01-11] MEDS: MORPHINE 4 MG/ML SYR IV PRN ×2 (01:23→03:31)
[2018-01-11 03:56] LABS: Absolute Lymphocytes (CBC) 0.4 K/uL (0.7-4.9); Absolute Monocytes 0.7 K/uL (0.1-1.3); Absolute Neutrophil 7.3 K/uL (1.8-8.0); Basophils % 2.2 % (0-1.3); Eosinophils % 1.5 % (0-4.4); Lymphocytes % 4.5 % (15.3-44.8); MCH 28.9 pg (27.0-35.0); MCV 90.2 fL (80-100); MPV 10.5 fL (7.6-11.3); RBC Red Blood Cell Count 3.44 M/uL (4.33-5.43)
[2018-01-11 04:04] LABS: Magnesium 2.1 mg/dL (1.8-2.4); Potassium 4.2 mmol/L (3.5-5.1)
[2018-01-11] MEDS: METOPROLOL TAR 25 MG TAB PO SCH (05:09)
[2018-01-11] MEDS: HYDROCODONE/APAP 10/325 TAB PO PRN (05:32)
[2018-01-11] MEDS ORDERED: TRAMADOL HCL 50 MG TAB PO PRN (06:40)
[2018-01-11] MEDS: INSULIN -REGULAR HUMAN 50 UNIT/0.5 ML ML SQ SCH ×4 (07:30→21:35)
--- NOTE | 2018-01-11 08:26 | P.PN ---
Subjective Date of Service: 01/11/18 Primary Care Provider: Dr. Alvarado; Nephrology-Dr. Pacheco; Surgery-Dr. Mclaughlin Chief Complaint: Left foot gangrene requiring surgery Subjective: Doing well (Patient doing well this time. Patient had left below- knee amputation yesterday. Patient reports pain.) Physical Examination - Vital Signs Temperature: 98.4 F Blood Pressure: 151/83 Pulse: 80 Respirations: 18 Pulse Ox (%): 98 - Physical Exam General: Alert, In no apparent distress, Oriented x3, Cooperative HEENT: Atraumatic Neck: Supple Respiratory: Clear to auscultation bilaterally, Normal air movement Cardiovascular: Normal pulses, Regular rate/rhythm Gastrointestinal: Normal bowel sounds, Soft and benign, Non-distended, No masses , No rebound, No guarding Musculoskeletal: No warmth Integumentary: Other (Left lower extremity bandaged in place. Patient is status post left below-knee amputation. Drain in place.) Neurological: Normal speech, Normal strength at 5/5 x4 extr, Normal tone, Normal affect - Studies Laboratory Data (last 24 hrs) 01/11/18 03:38: Sodium 143, Potassium 4.2, BUN 32 H D, Creatinine 4.90 H D, Glucose 112 H, Magnesium 2.1 01/11/18 03:38: WBC 8.7, Hgb 10.0 L, Hct 31.0 L, Plt Count 151 L 01/10/18 04:46: WBC 8.5, Hgb 10.3 L, Hct 31.9 L, Plt Count 175 Medications List Reviewed: Yes Assessment & Plan - Problems (Diagnosis) (1) Gangrene Current Visit: No Status: Acute Plan: Patient had left below-knee amputation yesterday. Will continue IV antibiotic therapy. Drain in place. Physical therapy to further assess. Will recommend inpatient rehab. Will discuss with social media strategist. Will discuss with his surgery on when IV antibiotic therapy can be discontinued. Continue with medication for pain. I will turn the service over to Dr. Valenzuela tomorrow. I will go over the plan of care with her. (2) CHF (congestive heart failure) Onset Date: 05/10/16 Current Visit: No Status: Chronic Plan: Will continue with 1500 cc per day fluid restriction. Will also continue with Lasix. Stable this time. Qualifiers: Heart failure type: systolic Heart failure chronicity: chronic Qualified Code(s): I50.22 - Chronic systolic (congestive) heart failure (3) Coronary artery disease Onset Date: 05/10/16 Current Visit: No Status: Chronic Plan: Stable this time. Patient on Plavix. Continue DVT prophylaxis. Qualifiers: (4) Diabetes mellitus Onset Date: 05/10/16 Current Visit: No Status: Chronic Plan: Will continue sliding scale. Will monitor and adjust appropriately. Qualifiers: Diabetes mellitus type: type 2 Diabetes mellitus terminal make up operator insulin use: unspecified terminal make up operator insulin use status Diabetes mellitus complication status : with skin complications Diabetes mellitus complication detail: with other skin complication Qualified Code(s): E11.628 - Type 2 diabetes mellitus with other skin complications (5) ESRD (end stage renal disease) Onset Date: 06/01/15 Current Visit: No Status: Chronic Plan: Will continue with dialysis Mondays, Wednesdays and Fridays. Case discussed with nephrology. (6) Hypertension Onset Date: 08/29/16 Current Visit: No Status: Chronic Plan: Will continue with medication. Will monitor and adjust appropriately. Overall stable. Qualifiers: Hypertension type: essential hypertension (7) PVD (peripheral vascular disease) Onset Date: 10/19/17 Current Visit: No Status: Chronic Plan: Patient with known history of peripheral vascular disease. Patient with history of prior right below-knee amputation. Patient status post left below-knee amputation. (8) Anxiety Onset Date: 01/09/18 Current Visit: Yes Status: Chronic Plan: Will continue with his medication as needed. (9) GERD (gastroesophageal reflux disease) Onset Date: 01/09/18 Current Visit: Yes Status: Chronic Plan: Will continue with his medication. Qualifiers: Esophagitis presence: esophagitis presence not specified Qualified Code(s) : K21.9 - Gastro-esophageal reflux disease without esophagitis (10) S/P BKA (below knee amputation) Current Visit: Yes Status: Acute Plan: Patient is status post left below-knee amputation. Continue with pain control medication. Physical therapy to be initiated. Will recommend inpatient rehab. Qualifiers: Laterality: left Qualified Code(s): Z89.512 - Acquired absence of left leg below knee (11) Anemia Onset Date: 12/27/17 Current Visit: No Status: Chronic Plan: Overall stable. Will monitor closely. Qualifiers: Anemia type: due to chronic kidney disease Chronic kidney disease stage: on chronic dialysis Qualified Code(s): N18.6 - End stage renal disease; D63.1 - Anemia in chronic kidney disease; Z99.2 - Dependence on renal dialysis Discharge Plan: Other (Inpatient rehab) Plan to discharge in: Greater than 2 days Time Spent Managing Pts Care (In Minutes): 55
[2018-01-11] MEDS: COLLAGENASE 30 GM OINTMENT TOP SCH (09:00)
[2018-01-11] MEDS: HEPARIN 5000 UNIT/ML 1 ML VIAL SQ SCH ×2 (09:56→21:35)
[2018-01-11] MEDS: SEVELAMER CARBONATE 800 MG TABLET PO SCH ×3 (09:56→17:24)
[2018-01-11] MEDS: FUROSEMIDE 40 MG TABLET PO SCH (09:57)
[2018-01-11] MEDS: PREGABALIN 50 MG CAP PO SCH ×2 (09:57→21:36)
[2018-01-11] MEDS: LISINOPRIL 10 MG TAB PO SCH ×2 (09:57→21:35)
[2018-01-11] MEDS: CLOPIDOGREL 75 MG TABLET PO SCH (09:57)
[2018-01-11] MEDS ORDERED: EPOETIN ALFA 10,000 UNIT/ML VIAL IV SCH (13:45)
[2018-01-11] MEDS: ACETAMINOPHEN 500 MG TAB PO PRN (17:24)
--- NOTE | 2018-01-11 18:37 | PN ---
Date of Progress Note: 01/11/2018 Subjective: The patient is status post below-knee amputation, yesterday on the left side. Tolerated well. Physical Examination: Vital Signs: Blood pressure 150/85, pulse of 71, afebrile. Chest: Clear to auscultation. Heart: S1, S2. Regular. Abdomen: Soft, nontender. Extremities: Bilateral below-knee amputation. Laboratory Data: WBC 8.7, H and H 05/02, platelet of 151. Sodium 143, potassium 4.2, bicarb 28, BUN 32, creatinine 4.9, calcium 8.7, magnesium 2.1. Current Medication: Include; 1.Zosyn. 2.Vancomycin. 3.Atarax. 4.Flexeril. 5.Plavix 75. 6.Epogen. 7.Lisinopril 10 daily. 8.Metoprolol 25 b.i.d. 9.Alprazolam. 10.Lyrica. 11.Lasix 80 daily. 12.Renvela 2 with each meal. 13.Ranitidine. Assessment And Plan: 1.End-stage renal disease. Normal volume. No uremia, no hyperkalemia. I am going to go ahead and arrange for the dialysis tomorrow. 2.Hypertension, controlled, optimal. Continue current medication. 3.Anemia of chronic kidney disease. Resume Epogen. 4.Secondary hyperparathyroidism. Continue Renvela. 5.Peripheral vascular disease, foot infection, status post below-knee amputation. We will follow up with Vascular and Surgery. Continue antibiotic for the time being. Case discussed with Dr. Mcrae and Dr. Mclaughlin, agreed on the plan. HARRIET Voice ID: [id number] Report ID: [id number]
[2018-01-11] MEDS: RANITIDINE 150 MG TABLET PO SCH (21:36)
[2018-01-12] MEDS: PIPER/TAZO/NS 2.25gm 2.25 GM/50 ML BAG IVPB SCH ×3 (00:50→19:27)
[2018-01-12] MEDS: METOPROLOL TAR 25 MG TAB PO SCH (05:31)
[2018-01-12 05:38] LABS: Absolute Lymphocytes (CBC) 0.7 K/uL (0.7-4.9); Absolute Monocytes 0.8 K/uL (0.1-1.3); Eosinophils % 1.9 % (0-4.4); Hematocrit 30.4 % (39.6-49.0); Lymphocytes % 6.5 % (15.3-44.8); MCV 91.2 fL (80-100); MPV 11.4 fL (7.6-11.3); Monocytes % 7.6 % (3.3-12.3); RBC Red Blood Cell Count 3.33 M/uL (4.33-5.43)
[2018-01-12 06:02] LABS: Magnesium 2.3 mg/dL (1.8-2.4); Potassium 4.8 mmol/L (3.5-5.1)
[2018-01-12] MEDS: INSULIN -REGULAR HUMAN 50 UNIT/0.5 ML ML SQ SCH ×4 (07:30→21:00)
[2018-01-12] MEDS: SEVELAMER CARBONATE 800 MG TABLET PO SCH ×3 (08:00→17:00)
[2018-01-12] MEDS: COLLAGENASE 30 GM OINTMENT TOP SCH (09:00)
[2018-01-12] MEDS: HEPARIN 5000 UNIT/ML 1 ML VIAL SQ SCH ×2 (09:59→20:10)
[2018-01-12] MEDS: PREGABALIN 50 MG CAP PO SCH ×2 (09:59→20:11)
[2018-01-12] MEDS: FUROSEMIDE 40 MG TABLET PO SCH (09:59)
[2018-01-12] MEDS: LISINOPRIL 10 MG TAB PO SCH ×2 (09:59→20:13)
[2018-01-12] MEDS: CLOPIDOGREL 75 MG TABLET PO SCH (09:59)
--- NOTE | 2018-01-12 11:45 | RAD REPORT ---
EXAM DESCRIPTION: CT - Head Brain Wo Cont - 01/12/2018 11:31 am CLINICAL HISTORY: Alteration of of awareness/confusion COMPARISON: 2015 TECHNIQUE: Computed axial tomography of the head was obtained. IV contrast was not requested. All CT scans are performed using dose optimization technique as appropriate and may include automated exposure control or mA/KV adjustment according to patient size. FINDINGS: An intracranial bleed is not seen . The ventricles are normal in caliber. No extra-axial fluid collection is noted. Fluid within the sinuses/ mastoids is not seen. IMPRESSION: No acute intracranial abnormality is seen. If patient's symptoms persist MRI of the bra in would be recommended.
[2018-01-12] MEDS: ACETAMINOPHEN 500 MG TAB PO PRN (11:47)
[2018-01-12 12:04] LABS: Arterial Blood Carboxyhemoglob 2.6 % (0-1.5); Blood Gas Oxyhemoglobin 96.3 % (94-97); Blood O2 Saturation 99.5 % (92-98.5)
--- NOTE | 2018-01-12 15:20 | P.PN ---
Subjective Date of Service: 01/12/18 Primary Care Provider: Dr. Alvarado; Nephrology-Dr. Pacheco; Surgery-Dr. Mclaughlin Chief Complaint: Left foot gangrene , s/p L BKA, s/p R BKA Review of Systems General: Fever (no), Chills (no), Sweats (no) Respiratory: Shortness of Breath (no) Cardiovascular: Chest Pain (no) Gastrointestinal: Unremarkable Musculoskeletal: As per HPI Physical Examination - Vital Signs Temperature: 99.2 F Blood Pressure: 154/79 Pulse: 73 Respirations: 16 Pulse Ox (%): 100 - Physical Exam General: Alert, In no apparent distress, Oriented x3, Cooperative HEENT: PERRLA, EOMI Neck: Supple Respiratory: Normal air movement Gastrointestinal: Soft and benign Musculoskeletal: Other (right open wound granulating, L intact BKA) - Studies Laboratory Data (last 24 hrs) 01/12/18 05:04: Sodium 140, Potassium 4.8, BUN 46 H, Creatinine 6.60 H* D, Glucose 102, Magnesium 2.3 01/12/18 05:04: WBC 10.9 D, Hgb 9.6 L, Hct 30.4 L, Plt Count 135 L Medications List Reviewed: Yes Assessment And Plan - Plan ok to move to rehab when OK by medical service Juan wet to dry to right stump dresssing intact left stump
--- NOTE | 2018-01-12 18:29 | P.DS ---
Admission Date: 01/08/18 Discharge Date: 01/12/18 Primary Care Provider: Dr. Alvarado; Nephrology-Dr. Pacheco; Surgery-Dr. Mclaughlin Disposition: TRANSFER TO INPATIENT REHAB Discharge Condition: GOOD Reason for Admission: Left foot gangrene , s/p L BKA, s/p R BKA Consultations: Surgery Procedures: BL BKA - Problems (1) Gangrene Onset Date: 01/09/18 Current Visit: Yes Status: Acute (2) S/P BKA (below knee amputation) Current Visit: Yes Status: Acute Qualifiers: Laterality: left Qualified Code(s): Z89.512 - Acquired absence of left leg below knee (3) Anxiety Onset Date: 01/09/18 Current Visit: Yes Status: Chronic (4) GERD (gastroesophageal reflux disease) Onset Date: 01/09/18 Current Visit: Yes Status: Chronic Qualifiers: Esophagitis presence: esophagitis presence not specified Qualified Code(s) : K21.9 - Gastro-esophageal reflux disease without esophagitis (5) IDDM (insulin dependent diabetes mellitus) Onset Date: 12/27/17 Current Visit: No Status: Acute (6) CHF (congestive heart failure) Onset Date: 05/10/16 Current Visit: No Status: Chronic Qualifiers: Heart failure type: systolic Heart failure chronicity: chronic Qualified Code(s): I50.22 - Chronic systolic (congestive) heart failure (7) Coronary artery disease Onset Date: 05/10/16 Current Visit: No Status: Chronic Qualifiers: (8) Diabetes mellitus Onset Date: 05/10/16 Current Visit: No Status: Chronic Qualifiers: Diabetes mellitus type: type 2 Diabetes mellitus alf insulin use: unspecified alf insulin use status Diabetes mellitus complication status : with skin complications Diabetes mellitus complication detail: with other skin complication Qualified Code(s): E11.628 - Type 2 diabetes mellitus with other skin complications (9) ESRD (end stage renal disease) Onset Date: 06/01/15 Current Visit: No Status: Chronic (10) Hyperlipidemia Onset Date: 05/10/16 Current Visit: No Status: Chronic Qualifiers: Hyperlipidemia type: unspecified Qualified Code(s): E78.5 - Hyperlipidemia , unspecified (11) Hypertension Onset Date: 08/29/16 Current Visit: No Status: Chronic Qualifiers: Hypertension type: essential hypertension (12) PVD (peripheral vascular disease) Onset Date: 10/19/17 Current Visit: No Status: Chronic Brief History of Present Illness: 52-year-old male presented to the medical floor after transferred from rehabilitation. Patient had seen surgery earlier today. Patient with known gangrene to the left foot. Patient with multiple medical problems including severe peripheral vascular disease, CAD, diabetes, hypertension, and end-stage renal disease. The patient recently had amputation of the left 1st 3rd and 4th digit. It was recommended that the patient had a below-knee amputation on the last amputation. The patient declined. It was also recommended that it may be best to do an above knee amputation but the patient declined as well. Surgery recommended below-knee amputation today. Patient was agreeable. Therefore patient was transition from the rehabilitation floor to medical floor in preparation for surgery. Patient currently stable this time. Pain well controlled. Patient denies any nausea, vomiting, chest pain or shortness of breath. Patient was in dialysis on initial evaluation. Hospital Course: Overall patient remained stable The patient was initially admitted to the hospital for inpatient rehab for left foot amputation. Patient had canker into the left toe and the left foot due to chronic PVD. Surgery was consulted. Patient had a successful eft foot amputation [id number] without any complication. Patient did well overall postprocedure. Patient was then transferred back to inpatient rehab for further treatment. Patient was to continue on IV antibiotics vancomycin and Zosyn for total of 2 weeks until surgery sees him. Patient was to also continue with physical therapy and occupational therapy as well. Patient was recovering well and thus was transferred over to rehab for further care. Vital Signs/Physical Exam: Temp Pulse Resp BP Pulse Ox 99.2 F 73 16 154/79 H 100 01/12/18 15:20 01/12/18 15:20 01/12/18 15:20 01/12/18 15:20 01/12/18 15:20 General: Alert, In no apparent distress HEENT: Atraumatic, PERRLA, EOMI Neck: Supple, JVD not distended Respiratory: Clear to auscultation bilaterally, Normal air movement Cardiovascular: Regular rate/rhythm, Normal S1 S2 Gastrointestinal: Normal bowel sounds, No tenderness Musculoskeletal: Other (BL BKA with Wound vac in place ) Integumentary: No rashes Neurological: Normal speech, Normal tone, Normal affect Lymphatics: No axilla or inguinal lymphadenopathy Laboratory Data at Discharge: WBC 10.9 K/uL (4.3-10.9) D 01/12/18 05:04 Hgb 9.6 g/dL (13.6-17.9) L 01/12/18 05:04 Hct 30.4 % (39.6-49.0) L 01/12/18 05:04 Plt Count 135 K/uL (152-406) L 01/12/18 05:04 Sodium 140 mmol/L (136-145) 01/12/18 05:04 Potassium 4.8 mmol/L (3.5-5.1) 01/12/18 05:04 BUN 46 mg/dL (7-18) H 01/12/18 05:04 Creatinine 6.60 mg/dL (0.55-1.3) H* D 01/12/18 05:04 Glucose 102 mg/dL (74-106) 01/12/18 05:04 Magnesium 2.3 mg/dL (1.8-2.4) 01/12/18 05:04 Home Medications: ALPRAZolam [Xanax*] 1 mg PO BEDTIME PRN tab 01/08/18 Clopidogrel Bisulfate [Plavix*] 75 mg PO DAILY tablet 01/08/18 Collagenase [Santyl Ointment*] 1 appl TOP BID tube 01/08/18 Epoetin [Procrit*] 10,000 unit IV EVERY HD vial 01/08/18 Furosemide [Lasix*] 80 mg PO DAILY tab 01/08/18 Heparin [Heparin Sodium*] 5,000 unit SQ Q12HR vial 01/08/18 Hydrocodone 10/APAP 325 [[place] 10/325*] 1 tab PO Q6H PRN tab 01/08/18 Hydrocortisone Cream [Hydrocortisone 1% Cream*] 1 appl TOP TIDP PRN tube Insulin -Regular Human [Novolin -R*] See Protocol SQ ACHS ml 01/08/18 William [William*] 1 pkt PO BID powd.pack 01/08/18 Lisinopril [Prinivil*] 10 mg PO BID tab 01/08/18 Mannitol 25% [Mannitol*] 12.5 gm IV EVERY HD PRN vial 01/08/18 Metoprolol Tartrate [Lopressor*] 25 mg PO [id number] tab 01/08/18 Pregabalin [Lyrica*] 100 mg PO BID cap 01/08/18 Ranitidine [Zantac*] 300 mg PO DAILY tab 01/08/18 Sevelamer Carbonate [Renvela*] 1,600 mg PO TIDWM tablet 01/08/18 Patient Discharge Instructions: Please continue the following medication. Vancomycin 1g daily. Zosyn 2.25mg q8h Diet: Regular Activity: Ad felicia Followup: Inocencio Mclaughlin MD [ACTIVE - CAN ADMIT] - 1 Week (call office to follow up in 1 week. )
[2018-01-12] MEDS: MORPHINE 4 MG/ML SYR IV PRN (19:19)
[2018-01-12] MEDS: RANITIDINE 150 MG TABLET PO SCH (20:11)
[2018-01-13 00:37] VITALS: BP 153/82; TEMP 97
[2018-01-13 00:49] VITALS: O2SAT 100
[2018-01-13] MEDS: PIPER/TAZO/NS 2.25gm 2.25 GM/50 ML BAG IVPB SCH (01:27)
[2018-01-13] MEDS: HYDROCODONE/APAP 10/325 TAB PO PRN (01:47)
--- NOTE | 2018-01-13 15:21 | PN ---
Date of Progress Note: 01/12/2018 Subjective: The patient is status post below-knee amputation. Tolerated very well. Physical Examination: Vital Signs: Blood pressure 153/82, pulse of 70. Chest: Clear to auscultation. Heart: S1, S2. Systolic murmur. Abdomen: Soft, nontender. Extremities: Bilateral amputee. Laboratory Data: H and H 9.6/30.4. Sodium 140, potassium 4.8, bicarb 27, BUN 46, creatinine 6.6, ca lcium 9.2, magnesium 2.3. Current Medications: Include alprazolam, Plavix, vitamin C, Epogen, Lasix 80 daily, insulin, lisinop ril 10 mg, metoprolol, morphine, Zosyn, Renvela, and vancomycin. Assessment And Plan: 1.End-stage renal disease. Normal volume. Continue current dialysis. 2.Hypertension, controlled optimal. Continue current medication. 3.Anemia of chronic kidney disease. Continue Epogen. 4.Peripheral vascular disease status post below-knee amputation. We will follow up with the surgeon . The patient cleared from the renal standpoint for discharge planning. HARRIET Voice ID: [id number] Report ID: [id number]
== END 2018-01-13 04:15 | DRG 239 ==
LOC: 4TH 16:45
PROVIDERS: ADMIT Family Medicine; ATTEND Family Medicine
PROC: 5A1D70Z Performance of Urinary Filtration, Intermittent, Less than 6 Hours Per Day (ICD-10-PCS; 2018-01-08)
PROC: 0Y6J0Z1 Detachment at Left Lower Leg, High, Open Approach (ICD-10-PCS; principal; 2018-01-10 12:30)
DX: E11.52 Type 2 diabetes mellitus with diabetic peripheral angiopathy with gangrene (principal); N18.6 End stage renal disease; I13.2 Hypertensive heart and chronic kidney disease with heart failure and with stage 5 chronic kidney disease, or end stage renal disease; I50.22 Chronic systolic (congestive) heart failure; N25.81 Secondary hyperparathyroidism of renal origin; E11.22 Type 2 diabetes mellitus with diabetic chronic kidney disease; D63.1 Anemia in chronic kidney disease; Z89.512 Acquired absence of left leg below knee; E11.40 Type 2 diabetes mellitus with diabetic neuropathy, unspecified; K21.9 Gastro-esophageal reflux disease without esophagitis; F41.9 Anxiety disorder, unspecified; I25.10 Atherosclerotic heart disease of native coronary artery without angina pectoris; E11.628 Type 2 diabetes mellitus with other skin complications; E78.5 Hyperlipidemia, unspecified; Z99.2 Dependence on renal dialysis; Z79.02 Long term (current) use of antithrombotics/antiplatelets; Z79.4 Long term (current) use of insulin; Z95.5 Presence of coronary angioplasty implant and graft; Z88.1 Allergy status to other antibiotic agents
CPT/HCPCS: 36415; 70450; 80048; 80202; 82805; 82962; 83735; 85025; 88307; 88311; 90935; 97163; J1644; J2597; J3370; J3590; Q4081

== ENCOUNTER 2018-01-12 17:24 | Inpatient (IN) | payer OTHER, BC ==
--- NOTE | 2018-01-12 18:49 | R.PREADM ---
SCREENING DATE AND TIME 01/12/2018 17:27 (CDT) ANTICIPATED REHAB ADMISSION DATE 01/14/2018 REFERRING FACILITY [facility] REFERRAL DATE AND TIME 01/12/2018 17:28 (CDT) ACUTE ADMIT DATE 12/26/2017 Previous Rehabilitation(s): No. REFERRING PHYSICIAN DR. MOUNIKA FRENCH REHAB FACILITY [facility] CLINICAL LIAISON Bee Botello PHYSICIAN REVIEWER Dr. Cameron Malcolm M.D. MR# [id number] NAME MARIBEL MIJARES ADDRESS [address] PHONE [facility] [id number] DATE OF 1965 AGE 52 SSN# [id number] GENDER male MARITAL STATUS RACE ADMIT FROM 02 - [facility] PRE-HOSPITAL LIVING SETTING 01 - Home (private home/apt. board/care, assisted living, half-way, transitional living) HOME TYPE AND DETAILS Type of home: single family house # of levels in the residence: 1 # of steps within the residence: 0 # of steps to enter the residence: 4 PRE-HOSPITAL LIVING WITH Family/Relatives FAMILY SUPPORT Yes PRIMARY FAMILY CONTACT NAME Shalini Mijares PRIMARY FAMILY CONTACT PHONE PRIMARY FAMILY CONTACT RELATIONSHIP PHONE PRIMARY FAMILY CONTACT ON ADM.? no IS PRIMARY FAMILY CONTACT AUTH. REP.? no 1ST EMERGENCY CONTACT Shalini Mijares 1ST CONTACT PHONE 1ST CONTACT RELATIONSHIP PHONE 1ST CONTACT ON ADM. no IS 1ST CONTACT AUTH. REP.? no PHONE 2ND CONTACT ON ADM.? no PATIENT EMPLOYMENT STATUS Disabled PAYOR INFORMATION: 1ST PAYOR NAME MEDICARE 1ST PAYOR PHONE [phone] 1ST PAYOR INJURY/ILLNESS DUE TO ACCIDENT? No ANOTHER GREEN PARTY RESPONSIBLE? No PRIMARY REHAB/ACUTE DIAGNOSIS: Bilateral BKA ONSET DATE 12/26/2017 REHAB IMPAIRMENT CATEGORY (STACI): 10 Amputation, lower extremity (Amp/LE) MEETS 60% rule AFFECTED EXTREMITIES: BLE PRIMARY DIAGNOSIS-RELATED SURGERIES: Left Below the Knee Amputation on01/10/2018 COMORBID REHAB/ACUTE DIAGNOSES: - Tier 1 Dependence on renal dialysis (Z99.2) - Tier 3 Type 2 diabetes mellitus with diabetic neuropathy, unspecified (E11.40) - Non-Tiered Infection of amputation stump, unspecified extremity (T87.40) - N/A HYPERTENSION CHF CORONARY ARTERY DISEASE WITH MULTIPLE STENTS ESRD HYPERLIPIDEMIA ANXIETY SEVERE PERIPHERAL VASCULAR DISEASE GERD INTERVENTIONS: - Hypertension Fluid management Medications VS - GERD Altered diet Elevation of head of bed Medications Nausea/vomiting Nighttime food/fluid restrictions Nutrition RISK FOR COMPLICATIONS: - Hypertension CVA Hypotension UT TIA - GERD Alteration in sleep Aspiration Dehydration Malnutrition Pain SUMMARY OF ACUTE HOSPITALIZATION: Pt. is a 52 yo Right-handed male. On 12/26/2017 he was admitted to [facility] with diagnosis Bilateral BKA. His impairment category is Amputation of Limb 05 - Bilateral Lower Limb Below the Knee (BK/BK) (05.7 ). Pre-morbidly, Pt. was independent/mod-I in Sphincter Control, Transfers Control, Communication, Socia l Cognition, Self-Care, and Locomotion; and he had good Sphincter Control. Currently, he has deficits of Safety Awareness, Transfers Control, Balance, Locomotion, Endurance, an d Self-Care. Pt. is now referred to [facility] for acute in-patient rehabilitation in order to maximize patient's functional independence in activities of daily living, strength, ROM, and mobi lity. Patient has realistic goal of being discharged at assistance level 6-Sharon to reside at Home with Fam jacqueline/Relatives. CONSULT: Consult Certified Prosthetic for prosthesis construction PAST MEDICAL HISTORY CHF CORONARY ARTERY DISEASE WITH MULTIPLE STENTS Dependence on renal dialysis (Z99.2) ESRD GERD HYPERLIPIDEMIA HYPERTENSION Infection of amputation stump, unspecified extremity (T87.40) SEVERE PERIPHERAL VASCULAR DISEASE Type 2 diabetes mellitus with diabetic neuropathy, unspecified (E11.40) PAST SURGICAL HISTORY: CARDIAC STENTS OPEN HEART SURGERY PACEMAKER PLACEMENT RIGHT BELOW THE KNEE AMPUTATION AMPUTATION TO MULTIPLE DIGITS ON THE LEFT SIDE FOOT MEDICATION ALLERGIES: CLINDAMYCIN ENVIRONMENTAL ALLERGIES: None Known - Substance Allergies None Known - Other Allergies None Known CODE STATUS: Full code WEIGHT/HEIGHT/BMI: WEIGHT 138 lbs HEIGHT 5' 4" BMI 23.7 DIET: - Diet Type Regular - Diet - Solid Texture Regular - Diet - Liquid Texture Regular - Tube Feed N/A SKIN DIAGRAM: Incision on Left knee; extent - small; stage - NS(Not Stageable). Treatment - Per Physician's Orders. REVIEW OF SYSTEMS: - Gen Alert and awake Lying in bed No apparent distress Oriented to: person, time, and place - Vital Signs Temperature: 99.2 F SBP/DBP: 154/79 Pulse: 73 Resp: 16 Vital signs stable, afebrile - CVS RRR VITAL SIGNS Temperature: 99.2 F SBP/DBP: 154/79 Pulse: 73 Resp: 16 Vital signs stable, afebrile CURRENT SPHINCTER CONTROL: Pre-hospital bladder status: continent # of bladder accidents in the last 7 days prior to screenin Pre-hospital bowel status: continent # of bowel accidents in the last 7 days prior to screenin Last Bowel Movement Date: DETAILED CURRENT FUNCTIONAL STATUS: - Bladder accident frequency: Ind - No accidents in the past 7 days - Bowel accident frequency: Ind - No accidents in the past 7 days - Walking score based on distance walked: 0(N/A) - Wheelchair score based on distance traveled: 0(N/A) FUNCTIONAL STATUS: - Self-Care A. Eating Ind Ind B. Grooming Ind Ind C. Bathing Ind sup D. Dressing - Upper Ind sup E. Dressing - Lower Ind Vinny F. Toileting Ind Vinny - Sphincter Control G: Bladder control Ind Ind H: Bowel control Ind Ind - Transfers Control I. Bed/Chair/Wheelchair Ind Vinny J. Toilet Ind Vinny K. Tub/Shower Ind ADNO - Locomotion L. Walk/Wheelchair (C) Ind Vinny L. Walk/Wheelchair (W) Ind Vinny M. Stairs Ind ADNO - Communication N. Comprehension (B) Ind Sharon O. Expression (B) Ind Sharon - Social Cognition P. Social Interaction Ind Sharon Q. Problem Solving Ind Sharon R. Memory Ind Sharon - Endurance Fair - Balance Fair - Safety Awareness Fair CURRENT FUNC. DEFICITS: Safety Awareness, Transfers Control, Balance, Locomotion, Endurance, and Self-Care THERAPY NOTES FROM ACUTE CARE: Attached. SPECIAL NEEDS: - Safety Concerns Skin breakdown precautions needed due to skin breakdown risk PRECAUTIONS: - Fall Precaution Bed and chair alarm PATIENT NEEDS ACTIVE AND ONGOING THERAPEUTIC INTERVENTION OF MULTIPLE THERAPY DISCIPLINES, INCLUDING: - Orthotics/Prosthetics Prosthetic Evaluation. - Occupational Therapy Evaluate and Treat. - Physical Therapy Evaluate and Treat. PATIENT NEEDS CLOSE MEDICAL SUPERVISION BY A REHABILITATION PHYSICIAN FOR: Bowel and Bladder Management Coordination of Treatment Team Diabetes Management Medical and Co-Morbidity Management DVT Management Pain Management Wound Care Post-Op Complications PATIENT REQUIRES 24X7 REHAB NURSING FOR MEDICAL AND FUNCTIONAL MGT. OF THE FOLLOWING DEFICITS: ADL's Ambulation Bowel and Bladder Management Cognition Communication Disease Management Medication Management Patient/Family Education Providing Safe Environment Skin Integrity Transfers Pain Management PATIENT REQUIRES INTENSIVE, COORDINATED INTERDISCIPLINARY APPROACH TO REHAB: Arranging Home Equipment/Services Discharge Planning Family Intervention/Training Supervisor Ditching/Case Management PATIENT REHAB POTENTIAL: Expected level of measurable improvement will be of a practical value to patient's functional capacit y or adaptations to impairments Has a viable Discharge Plan Medically appropriate; condition is sufficiently stable to participate in intensive rehab program Patient is able and expected to receive 3 hours of individualized therapy daily on at least 5 of ever y 7 days Patient's prognosis for significant practical improvement within a reasonable period of time appears Good DISCHARGE PLAN: - Estimated Length of Stay (days) 11. - Consensus on plan Discharge plan has been discussed with primary caregiver. Patient/Family is in agreement with the sussy n. Primary caregiver is in agreement with the plan. - Patient/Family Goals Return home with assistance. - Planned Living Setting Upon Discharge Home, to live with Family/Relatives. RECOMMENDED CARE LEVEL: IRF RECOMMENDATION DETAILS: Recommended Admission to Comprehensive Rehabilitation Program to Increase Functional [place] SCREENER'S COMPLETENESS CONFIRMATION: - Screening Confirmation The patient data collection on this preadmission screening form is finished PHYSICIANS REVIEW AND ADMISSION DETERMINATION Admit - Based on my review of the Pre-Admission Screening results, in my medical judgment and experie nce, I concur with the findings and recommend admission to [facility], as this patient requires an IRF level of care. SIGNATURE PANEL: Clinical Liaison - [electronically] signed by Bee Botello on 01/12/2018 at 17:46 (CDT) Qualification Engineer - /__/____ at __:__ Physician Reviewer - [electronically] signed by Dr. Cameron Malcolm M.D. on 01/12/2018 at 17:49 (CDT )
[2018-01-13] MEDS ORDERED: ALPRAZOLAM 1 MG TABLET PO PRN (06:16)
[2018-01-13] MEDS ORDERED: GLUCAGON 1 MG/VIAL IM PRN (06:22)
[2018-01-13] MEDS ORDERED: D50W 25 GM/50 ML SYRINGE IV PRN (06:22)
[2018-01-13] MEDS: INSULIN -REGULAR HUMAN 50 UNIT/0.5 ML ML SQ SCH ×4 (07:30→20:27)
[2018-01-13] MEDS ORDERED: LISINOPRIL 5 MG TAB PO SCH (08:00)
[2018-01-13] MEDS ORDERED: VANCOMYCIN 1 GM in NA CHLORIDE 0.9% 250 ML IVPB SCH (08:00)
[2018-01-13] MEDS ORDERED: NA CHLORIDE 0.9% IVPB SCH (08:00)
[2018-01-13] MEDS: LISINOPRIL 10 MG TAB PO SCH ×2 (08:00→20:34)
[2018-01-13] MEDS: HEPARIN 5000 UNIT/ML 1 ML VIAL SQ SCH ×2 (08:00→20:35)
[2018-01-13] MEDS ORDERED: VANCOMYCIN IVPB SCH (08:00)
[2018-01-13] MEDS: JUVEN PACKET PO SCH ×2 (08:00→20:00)
[2018-01-13] MEDS: PREGABALIN 75 MG CAP PO SCH (08:34)
[2018-01-13] MEDS: SEVELAMER CARBONATE 800 MG TABLET PO SCH ×3 (08:35→16:34)
[2018-01-13] MEDS: FUROSEMIDE 40 MG TABLET PO SCH (08:35)
[2018-01-13] MEDS: CLOPIDOGREL 75 MG TABLET PO SCH (08:36)
[2018-01-13] MEDS: PIPER/TAZO/NS 2.25gm 2.25 GM/50 ML BAG IVPB SCH ×2 (09:06→16:35)
[2018-01-13] MEDS: COLLAGENASE 30 GM OINTMENT TOP SCH ×2 (09:24→21:26)
[2018-01-13] MEDS: HYDROCODONE/APAP 10/325 TAB PO PRN ×2 (09:33→15:12)
--- NOTE | 2018-01-13 12:21 | FAST ---
ENCOUNTER DATE AND TIME: 01/13/2018 08:00 (CDT) NAME MARIBEL MIJARES DATE OF : 1965 DATE OF ADMISSION: 01/13/2018 05:31 (CDT) PHONE: AGE: 52 N# [id number] GENDER: Male ENCOUNTER PHYSICIAN: Dr. Cameron Malcolm M.D. ADMISSION DIAGNOSIS: - Amputation of Limb 05 - Bilateral Lower Limb Below the Knee (BK/BK) (05.7) Bilateral BKA. EATING: Activity did not occur on this shift EATING - SCORE: 0-UNK GROOMING: Comb/brush hair Oral care Wash, rinse, and dry face Wash, rinse, and dry hands GROOMING - STEP 1: Does the patient require assistance when grooming? Yes. GROOMING - STEP 2: Does the patient require the assistance of a helper? Yes. GROOMING - STEP 3: How much assistance does the patient require from the helper? Cuing, coaxing, instructions, or encour agement for completion of grooming GROOMING - SCORE: 5-SUP GROOMING - COMMENTS: Set-up assist and vcs BATHING: Abdomen Buttocks Chest Left arm Left upper leg Perineal area Right arm Right upper leg BATHING - STEP 1: Does the patient require assistance when bathing? Yes. BATHING - STEP 2: Does the patient require the assistance of a helper? Yes. BATHING - STEP 3: How much assistance does the patient require from the helper? More than just incidental help BATHING - STEP 4: What percent of the body parts did the patient bathe WITHOUT the helper? Less than half of the body p arts BATHING - SCORE: 2-MAX DRESSING - UPPER BODY: T-shirt/pullover shirt (four steps) ARTICLES SCORE Total number of steps: 4 DRESSING - UPPER BODY - STEP 1: Does the patient require help when dressing above the waist? Yes. DRESSING - UPPER BODY - STEP 2: Does the patient require the assistance of a helper? Yes. DRESSING - UPPER BODY - STEP 3: Does the helper touch the patient while dressing? Yes. DRESSING - UPPER BODY - STEP 4: How many of the total steps does the patient complete on his/her own? 3 DRESSING - UPPER BODY - SCORE: 4-MIN DRESSING - LOWER BODY: Elastic waist pants (three steps) Underwear (three steps) ARTICLES SCORE Total number of steps: 6 DRESSING - LOWER BODY - STEP 1: Does the patient require help when dressing below the waist? Yes. DRESSING - LOWER BODY - STEP 2: Does the patient require the assistance of a helper? Yes. DRESSING - LOWER BODY - STEP 3: Does the helper touch the patient while dressing? Yes. DRESSING - LOWER BODY - STEP 4: How many of the total steps does the patient complete on his/her own? 0 DRESSING - LOWER BODY - STEP 5: Does patient require total assistance for dressing below the waist such as the helper holding clothin g and performing basically all the activities? Yes. DRESSING - LOWER BODY - SCORE: 1-DEP TOILETING: Activity did not occur on this shift TOILETING - SCORE: 0-UNK BLADDER MANAGEMENT: Activity did not occur on this shift BLADDER MANAGEMENT - SCORE: 7-IND BOWEL MANAGEMENT: Activity did not occur on this shift BOWEL MANAGEMENT - SCORE: 7-IND TRANSFERS: BED, CHAIR, WHEELCHAIR: Activity did not occur on this shift TRANSFERS: BED, CHAIR, WHEELCHAIR - SCORE: 0-UNK TRANSFERS: TOILET: Activity did not occur on this shift TRANSFERS: TOILET - SCORE: 0-UNK TRANSFERS: SHOWER: Activity did not occur on this shift TRANSFERS: SHOWER - SCORE: 0-UNK TRANSFERS: TUB: Activity did not occur on this shift TRANSFERS: TUB - SCORE: 0-UNK LOCOMOTION: WALK: Activity did not occur on this shift LOCOMOTION: WALK - SCORE: 0-UNK LOCOMOTION: WHEELCHAIR: Activity did not occur on this shift LOCOMOTION: WHEELCHAIR - SCORE: 0-UNK LOCOMOTION: STAIRS: Activity did not occur on this shift LOCOMOTION: STAIRS - SCORE: 0-UNK COMPREHENSION: COMPREHENSION: TYPE: Both COMPREHENSION - STEP 1: Does the patient require help to understand complex and abstract ideas (such as current events, finan caitlyn, discharge planning, medical issues, relationships, etc)? Yes. COMPREHENSION - STEP 2: Does the patient require help to understand questions or statements about basic needs or ideas (such as hunger, thirst, sleep, safety, daily schedule, room location, or discomfort) half or more of the t [place]? No. COMPREHENSION - STEP 3: How often does the patient need help to understand directions and conversation about basic needs? Les s than 10% of the time COMPREHENSION - SCORE: 5-SUP EXPRESSION EXPRESSION: TYPE: Vocal EXPRESSION - STEP 1: Does the patient require help expressing complex and abstract ideas (such as current events, finances , discharge planning, medical issues, relationships, etc)? Yes. EXPRESSION - STEP 2: Does the patient require help to express basic necessities or ideas (such as hunger, thirst, sleep, s afety, daily schedule, room location, or discomfort) half or more of the time? No. EXPRESSION - STEP 3: How often does the patient need help to express directions and conversation about basic needs? Less t chahal 10% of the time EXPRESSION - SCORE: 5-SUP SOCIAL INTERACTION: SOCIAL INTERACTION - STEP 1: Does the patient require a helper to interact with others in social and therapeutic situations? No. SOCIAL INTERACTION - STEP 2: Does the patient need extra time in social situations, OR does s/he interact with staff, other patien ts, and family members ONLY in structured environments, OR does s/he require medication for social in teraction? Yes, patient needs extra time SOCIAL INTERACTION - SCORE: 6-SRAVANTHI PROBLEM SOLVING: PROBLEM SOLVING - STEP 1: Does the patient need help to solve complex problems such as managing a checking account or confronti ng interpersonal problems? Yes. PROBLEM SOLVING - STEP 2: Does the patient solve basic routine problems half or more of the time? Yes. PROBLEM SOLVING - STEP 3: How often does the patient need help to solve basic routine problems? 10%-24% of the time PROBLEM SOLVING - SCORE: 4-MIN MEMORY: MEMORY - STEP 1: Does the patient need help to remember frequently encountered people, daily routines, and executing r equests? Yes. MEMORY - STEP 2: How often does the patient need help to remember frequently encountered people, daily routines, and e xecuting requests? 10% - 24% of the time MEMORY - SCORE: 4-MIN SIGNATURE PANEL: The following modified sections: Eating - Score, Grooming - Score, Grooming - Comments:, Bathing - Sc ore, Dressing - Upper Body - Score, Dressing - Lower Body - Score, Toileting - Score, Transfers: Bed, Chair, Wheelchair - Score, Transfers: Toilet - Score, Transfers: Shower - Score, Transfers: Tub - Sc ore, Comprehension - Score, Expression - Score, Social Interaction - Score, Problem Solving - Score, Memory - Score were [electronically] signed by Mis Mclain OT on MonJan 13 2018 11:22:03 GMT-050 0 (Central Daylight Time)
--- NOTE | 2018-01-13 16:33 | FAST ---
SHIFT START DATE/TIME: 01/13/2018 07:00 (CDT) SHIFT END DATE/TIME: 01/13/2018 19:00 (CDT) NAME MARIBEL MIJARES DATE OF : 1965 DATE OF ADMISSION: 01/13/2018 05:31 (CDT) PHONE: AGE: 52 N# [id number] GENDER: Male ENCOUNTER PHYSICIAN: Dr. Cameron Malcolm M.D. ADMISSION DIAGNOSIS: - Amputation of Limb 05 - Bilateral Lower Limb Below the Knee (BK/BK) (05.7) Bilateral BKA. EATING: EATING - STEP 1: Does the patient require assistance when eating? Yes. EATING - STEP 2: Does the patient require the assistance of a helper? Yes. EATING - STEP 3: Does the patient perform half or more of the eating tasks? Yes. EATING - STEP 4: Does the patient need only supervision, cuing, coaxing OR help to apply an orthosis OR help to cut fo od, open containers, pour liquids, or butter bread? Yes. EATING - SCORE: 5-SUP EATING - COMMENTS: Very sleepy, kept falling asleep with food in his mouth. GROOMING: Activity did not occur on this shift GROOMING - SCORE: 0-UNK BATHING: Activity did not occur on this shift BATHING - SCORE: 0-UNK DRESSING - UPPER BODY: Activity did not occur on this shift ARTICLES SCORE Total number of steps: 0 DRESSING - UPPER BODY - SCORE: 0-UNK DRESSING - LOWER BODY: Activity did not occur on this shift ARTICLES SCORE Total number of steps: 0 DRESSING - LOWER BODY - SCORE: 0-UNK TOILETING: Activity did not occur on this shift TOILETING - SCORE: 0-UNK BLADDER MANAGEMENT: Patient is on renal dialysis or peritoneal dialysis and no voiding activity BLADDER MANAGEMENT - SCORE: 7-IND BOWEL MANAGEMENT: Activity did not occur on this shift BOWEL MANAGEMENT - SCORE: 7-IND TRANSFERS: BED, CHAIR, WHEELCHAIR: Patient requires more than one helper and/or the use of a mechanical lift is utilized TRANSFERS: BED, CHAIR, WHEELCHAIR - SCORE: 1-DEP TRANSFERS: BED, CHAIR, WHEELCHAIR - COMMENTS: Pt was too drowsy to follow directions for the transfer TRANSFERS: TOILET: Activity did not occur on this shift TRANSFERS: TOILET - SCORE: 0-UNK TRANSFERS: SHOWER: Activity did not occur on this shift TRANSFERS: SHOWER - SCORE: 0-UNK TRANSFERS: TUB: Activity did not occur on this shift TRANSFERS: TUB - SCORE: 0-UNK LOCOMOTION: WALK: Activity did not occur on this shift LOCOMOTION: WALK - SCORE: 0-UNK LOCOMOTION: WHEELCHAIR: Activity did not occur on this shift LOCOMOTION: WHEELCHAIR - SCORE: 0-UNK COMPREHENSION: COMPREHENSION - STEP 1: Does the patient require help to understand complex and abstract ideas (such as current events, finan caitlyn, discharge planning, medical issues, relationships, etc)? Yes. COMPREHENSION - STEP 2: Does the patient require help to understand questions or statements about basic needs or ideas (such as hunger, thirst, sleep, safety, daily schedule, room location, or discomfort) half or more of the t [place]? No. COMPREHENSION - STEP 3: How often does the patient need help to understand directions and conversation about basic needs? 10% - 24% of the time COMPREHENSION - SCORE: 4-MIN EXPRESSION EXPRESSION - STEP 1: Does the patient require help expressing complex and abstract ideas (such as current events, finances , discharge planning, medical issues, relationships, etc)? Yes. EXPRESSION - STEP 2: Does the patient require help to express basic necessities or ideas (such as hunger, thirst, sleep, s afety, daily schedule, room location, or discomfort) half or more of the time? No. EXPRESSION - STEP 3: How often does the patient need help to express directions and conversation about basic needs? 25-49% of the time EXPRESSION - SCORE: 3-MOD SOCIAL INTERACTION: SOCIAL INTERACTION - STEP 1: Does the patient require a helper to interact with others in social and therapeutic situations? Yes. SOCIAL INTERACTION - STEP 2: Does the patient interact appropriately half or more of the time? Yes. SOCIAL INTERACTION - STEP 3: How often does the patient need help to interact appropriately? 10-24% of the time SOCIAL INTERACTION - SCORE: 4-MIN PROBLEM SOLVING: PROBLEM SOLVING - STEP 1: Does the patient need help to solve complex problems such as managing a checking account or confronti ng interpersonal problems? Yes. PROBLEM SOLVING - STEP 2: Does the patient solve basic routine problems half or more of the time? Yes. PROBLEM SOLVING - STEP 3: How often does the patient need help to solve basic routine problems? 25%-49% of the time PROBLEM SOLVING - SCORE: 3-MOD MEMORY: MEMORY - STEP 1: Does the patient need help to remember frequently encountered people, daily routines, and executing r equests? Yes. MEMORY - STEP 2: How often does the patient need help to remember frequently encountered people, daily routines, and e xecuting requests? 25% - 49% of the time MEMORY - SCORE: 3-MOD SIGNATURE PANEL: The following modified sections: Eating - Score, Grooming - Score, Bathing - Score, Eating - Comments :, Dressing - Upper Body - Score, Dressing - Lower Body - Score, Toileting - Score, Bladder Managemen t - Score, Bowel Management - Score, Transfers: Bed, Chair, Wheelchair - Comments:, Transfers: Bed, C hair, Wheelchair - Score, Transfers: Toilet - Score, Transfers: Shower - Score, Transfers: Tub - Scor e, Locomotion: Walk - Score, Locomotion: Wheelchair - Score, Comprehension - Score, Expression - Scor e, Social Interaction - Score, Problem Solving - Score, Memory - Score were [electronically] signed Nkechi Kaur on Sat Jan 13 2018 15:33:58 T-0500 (Central Daylight Time)
[2018-01-13] MEDS: PROMOD 30 ML DOSE PO SCH (20:33)
[2018-01-13] MEDS: RANITIDINE 150 MG TABLET PO SCH (20:34)
[2018-01-14] MEDS: PIPER/TAZO/NS 2.25gm 2.25 GM/50 ML BAG IVPB SCH ×3 (01:01→16:53)
[2018-01-14] MEDS: HYDROCODONE/APAP 10/325 TAB PO PRN ×3 (04:09→15:45)
[2018-01-14] MEDS: METOPROLOL TAR 25 MG TAB PO SCH (05:09)
--- NOTE | 2018-01-14 05:11 | FAST ---
SHIFT START DATE/TIME: 01/13/2018 19:00 (CDT) SHIFT END DATE/TIME: 01/14/2018 07:00 (CDT) NAME MARIBEL MIJARES DATE OF : 1965 DATE OF ADMISSION: 01/13/2018 05:31 (CDT) PHONE: AGE: 52 N# [id number] GENDER: Male ENCOUNTER PHYSICIAN: Dr. Cameron Malcolm M.D. ADMISSION DIAGNOSIS: - Amputation of Limb 05 - Bilateral Lower Limb Below the Knee (BK/BK) (05.7) Bilateral BKA. EATING: Activity did not occur on this shift EATING - SCORE: 0-UNK GROOMING: Activity did not occur on this shift GROOMING - SCORE: 0-UNK BATHING: Activity did not occur on this shift BATHING - SCORE: 0-UNK DRESSING - UPPER BODY: Activity did not occur on this shift ARTICLES SCORE Total number of steps: 0 DRESSING - UPPER BODY - SCORE: 0-UNK DRESSING - LOWER BODY: Activity did not occur on this shift ARTICLES SCORE Total number of steps: 0 DRESSING - LOWER BODY - SCORE: 0-UNK TOILETING: Activity did not occur on this shift TOILETING - SCORE: 0-UNK BLADDER MANAGEMENT: Activity did not occur on this shift BLADDER MANAGEMENT - SCORE: 7-IND BLADDER MANAGEMENT - FREQUENCY OF ACCIDENTS: BLADDER MANAGEMENT(FA) - STEP 1: How many accidents has the patient had during the current shift? 0 BOWEL MANAGEMENT: Activity did not occur on this shift BOWEL MANAGEMENT - SCORE: 7-IND TRANSFERS: BED, CHAIR, WHEELCHAIR: Activity did not occur on this shift TRANSFERS: BED, CHAIR, WHEELCHAIR - SCORE: 0-UNK TRANSFERS: TOILET: Activity did not occur on this shift TRANSFERS: TOILET - SCORE: 0-UNK TRANSFERS: SHOWER: Activity did not occur on this shift TRANSFERS: SHOWER - SCORE: 0-UNK TRANSFERS: TUB: Activity did not occur on this shift TRANSFERS: TUB - SCORE: 0-UNK LOCOMOTION: WALK: Activity did not occur on this shift LOCOMOTION: WALK - SCORE: 0-UNK LOCOMOTION: WHEELCHAIR: Activity did not occur on this shift LOCOMOTION: WHEELCHAIR - SCORE: 0-UNK COMPREHENSION: COMPREHENSION - STEP 1: Does the patient require help to understand complex and abstract ideas (such as current events, finan caitlyn, discharge planning, medical issues, relationships, etc)? No. COMPREHENSION - STEP 2: Does the patient need extra time, require an assistive device (such as glasses, hearing aids, or an a ugmentative communication system), OR does s/he have mild difficulty expressing complex and abstract ideas (including mild dysarthria or mild word-finding problems)? No. COMPREHENSION - SCORE: 7-IND EXPRESSION EXPRESSION: TYPE: Both EXPRESSION - STEP 1: Does the patient require help expressing complex and abstract ideas (such as current events, finances , discharge planning, medical issues, relationships, etc)? No. EXPRESSION - STEP 2: Does the patient need extra time, require an assistive device (such as augmentive communication syste m or a communication board), OR does s/he have mild difficulty expressing complex and abstract ideas (including mild dysarthria or mild word-find problems)? No. EXPRESSION - SCORE: 7-IND SOCIAL INTERACTION: SOCIAL INTERACTION - STEP 1: Does the patient require a helper to interact with others in social and therapeutic situations? No. SOCIAL INTERACTION - STEP 2: Does the patient need extra time in social situations, OR does s/he interact with staff, other patien ts, and family members ONLY in structured environments, OR does s/he require medication for social in teraction? No. SOCIAL INTERACTION - SCORE: 7-IND PROBLEM SOLVING: PROBLEM SOLVING - STEP 1: Does the patient need help to solve complex problems such as managing a checking account or confronti ng interpersonal problems? No. PROBLEM SOLVING - STEP 2: Does the patient require extra time to make decisions or solve problems, OR does s/he have slight dif ficulty reading, initiating, or self-correcting in unfamiliar situations? No. PROBLEM SOLVING - SCORE: 7-IND MEMORY: MEMORY - STEP 1: Does the patient need help to remember frequently encountered people, daily routines, and executing r equests? No. MEMORY - STEP 2: Does the patient have slight difficulty recognizing frequently encountered people, daily routines, or executing requests without the need for repetition or using self-initiated or environmental cues to remember? No. MEMORY - SCORE: 7-IND SIGNATURE PANEL: The following modified sections: Eating - Score, Grooming - Score, Bathing - Score, Dressing - Upper Body - Score, Dressing - Lower Body - Score, Toileting - Score, Bladder Management - Score, Bowel Man agement - Score, Transfers: Bed, Chair, Wheelchair - Score, Transfers: Toilet - Score, Transfers: Susie wer - Score, Transfers: Tub - Score, Locomotion: Walk - Score, Locomotion: Wheelchair - Score, Compre hension - Score, Expression - Score, Social Interaction - Score, Problem Solving - Score, Memory - Sc ore were [electronically] signed by Yolanda Gomez on Sun Jan 14 2018 04:11:34 GMT-0500 (Central Day light Time)
[2018-01-14 06:21] LABS: Absolute Lymphocytes (CBC) 0.5 K/uL (0.7-4.9); Absolute Monocytes 0.7 K/uL (0.1-1.3); Basophils % 1.5 % (0-1.3); Eosinophils % 4.4 % (0-4.4); Hematocrit 35.9 % (39.6-49.0); Lymphocytes % 4.5 % (15.3-44.8); MCH 29.2 pg (27.0-35.0); MCV 90.2 fL (80-100); MPV 10.9 fL (7.6-11.3); Monocytes % 6.9 % (3.3-12.3); RBC Red Blood Cell Count 3.99 M/uL (4.33-5.43)
[2018-01-14 07:22] LABS: Albumin 1.9 g/dL (3.4-5.0); Magnesium 2.4 mg/dL (1.8-2.4); Potassium 3.9 mmol/L (3.5-5.1); Prealbumin 11.5 mg/dL (20-40)
[2018-01-14] MEDS: INSULIN -REGULAR HUMAN 50 UNIT/0.5 ML ML SQ SCH ×4 (07:30→20:23)
[2018-01-14] MEDS: PROMOD 30 ML DOSE PO SCH ×2 (08:00→20:22)
[2018-01-14] MEDS: JUVEN PACKET PO SCH ×2 (08:00→20:22)
[2018-01-14] MEDS: HEPARIN 5000 UNIT/ML 1 ML VIAL SQ SCH ×2 (08:00→20:25)
[2018-01-14 08:04] LABS: Blood Morphology Comment NOT SEEN (NOT SEEN); Platelet Estimate ADEQ; Urine White Blood Cell Casts OK
[2018-01-14] MEDS: SEVELAMER CARBONATE 800 MG TABLET PO SCH ×3 (08:09→16:53)
[2018-01-14] MEDS: FE SULF/FA/VIT B COMP & C TAB PO SCH (08:10)
[2018-01-14] MEDS: LISINOPRIL 10 MG TAB PO SCH ×2 (08:10→20:22)
[2018-01-14] MEDS: FERROUS SULFATE 325 MG TAB PO SCH (08:10)
[2018-01-14] MEDS: CLOPIDOGREL 75 MG TABLET PO SCH (08:10)
[2018-01-14] MEDS: FUROSEMIDE 40 MG TABLET PO SCH (08:11)
[2018-01-14] MEDS: PREGABALIN 75 MG CAP PO SCH (08:12)
[2018-01-14] MEDS: COLLAGENASE 30 GM OINTMENT TOP SCH ×2 (08:13→20:23)
[2018-01-14] MEDS ORDERED: TRAMADOL HCL 50 MG TAB PO PRN (11:39)
--- NOTE | 2018-01-14 14:36 | FAST ---
SHIFT START DATE/TIME: 01/14/2018 07:00 (CDT) SHIFT END DATE/TIME: 01/14/2018 19:00 (CDT) NAME MARIBEL MIJARES DATE OF : 1965 DATE OF ADMISSION: 01/13/2018 05:31 (CDT) PHONE: AGE: 52 N# [id number] GENDER: Male ENCOUNTER PHYSICIAN: Dr. Cameron Malcolm M.D. ADMISSION DIAGNOSIS: - Amputation of Limb 05 - Bilateral Lower Limb Below the Knee (BK/BK) (05.7) Bilateral BKA. EATING: EATING - STEP 1: Does the patient require assistance when eating? Yes. EATING - STEP 2: Does the patient require the assistance of a helper? Yes. EATING - STEP 3: Does the patient perform half or more of the eating tasks? Yes. EATING - STEP 4: Does the patient need only supervision, cuing, coaxing OR help to apply an orthosis OR help to cut fo od, open containers, pour liquids, or butter bread? Yes. EATING - SCORE: 5-SUP GROOMING: Activity did not occur on this shift GROOMING - SCORE: 0-UNK BATHING: Activity did not occur on this shift BATHING - SCORE: 0-UNK DRESSING - UPPER BODY: Activity did not occur on this shift Patient is not dressing in public clothing ARTICLES SCORE Total number of steps: 0 DRESSING - UPPER BODY - SCORE: 0-UNK DRESSING - LOWER BODY: Patient is not dressing in public clothing ARTICLES SCORE Total number of steps: 0 DRESSING - LOWER BODY - SCORE: 0-UNK TOILETING: TOILETING - STEP 1: Does the patient require assistance with toileting? Yes. TOILETING - STEP 2: Does the patient require the assistance of a helper? Yes. TOILETING - STEP 3: How much assistance does the patient require from the helper? Hands-on assistance from the helper TOILETING - STEP 4: Of the 3 tasks: 1) Adjusting clothing prior to use, 2) Cleansing of perineal area, 3) Adjusting clot dinorah after use; How many tasks does the patient perform WITHOUT assistance of the helper? One task TOILETING - SCORE: 2-MAX BLADDER MANAGEMENT: BLADDER MANAGEMENT - STEP 1: Does the patient control the bladder completely and intentionally without equipment or devices or med ications, and is always continent? No. BLADDER MANAGEMENT - STEP 2: Does the patient require the assistance of a helper? No, patient requires and independently uses an a ssistive device, such as a urinal, bedpan, bedside commode, catheter, absorbent pad, or collecting de vice BLADDER MANAGEMENT - SCORE: 6-SRAVANTHI BOWEL MANAGEMENT: Activity did not occur on this shift BOWEL MANAGEMENT - SCORE: 7-IND TRANSFERS: BED, CHAIR, WHEELCHAIR: TRANSFERS: BED, CHAIR, WHEELCHAIR - STEP 1: Does the patient require assistance with bed, chair, or wheelchair transfers? Yes. TRANSFERS: BED, CHAIR, WHEELCHAIR - STEP 2: Does the patient require the assistance of a helper? Yes. TRANSFERS: BED, CHAIR, WHEELCHAIR - STEP 3: How much assistance does the patient require from the helper? Lifting of the patient TRANSFERS: BED, CHAIR, WHEELCHAIR - STEP 4: Does the helper lift the patient ONLY up? ONLY down? Up AND Down? ONLY up. TRANSFERS: BED, CHAIR, WHEELCHAIR - SCORE: 3-MOD TRANSFERS: TOILET: TRANSFERS: TOILET - STEP 1: Does the patient require assistance with toilet transfers? Yes. TRANSFERS: TOILET - STEP 2: Does the patient require the assistance of a helper? Yes. TRANSFERS: TOILET - STEP 3: How much assistance does the patient require from the helper? Patient performs half or more of the tr ansferring tasks TRANSFERS: TOILET - STEP 4: Does the patient need only incidental help such as contact guard or steadying during toilet transfer? No. Patient needs more than incidental help TRANSFERS: TOILET - SCORE: 3-MOD TRANSFERS: SHOWER: Activity did not occur on this shift TRANSFERS: SHOWER - SCORE: 0-UNK TRANSFERS: TUB: Activity did not occur on this shift TRANSFERS: TUB - SCORE: 0-UNK LOCOMOTION: WALK: Activity did not occur on this shift LOCOMOTION: WALK - SCORE: 0-UNK LOCOMOTION: WHEELCHAIR: Activity did not occur on this shift LOCOMOTION: WHEELCHAIR - SCORE: 0-UNK COMPREHENSION: COMPREHENSION - STEP 1: Does the patient require help to understand complex and abstract ideas (such as current events, finan caitlyn, discharge planning, medical issues, relationships, etc)? Yes. COMPREHENSION - STEP 2: Does the patient require help to understand questions or statements about basic needs or ideas (such as hunger, thirst, sleep, safety, daily schedule, room location, or discomfort) half or more of the t [place]? No. COMPREHENSION - STEP 3: How often does the patient need help to understand directions and conversation about basic needs? 25% - 49% of the time COMPREHENSION - SCORE: 3-MOD EXPRESSION EXPRESSION - STEP 1: Does the patient require help expressing complex and abstract ideas (such as current events, finances , discharge planning, medical issues, relationships, etc)? Yes. EXPRESSION - STEP 2: Does the patient require help to express basic necessities or ideas (such as hunger, thirst, sleep, s afety, daily schedule, room location, or discomfort) half or more of the time? No. EXPRESSION - STEP 3: How often does the patient need help to express directions and conversation about basic needs? 25-49% of the time EXPRESSION - SCORE: 3-MOD SOCIAL INTERACTION: SOCIAL INTERACTION - STEP 1: Does the patient require a helper to interact with others in social and therapeutic situations? Yes. SOCIAL INTERACTION - STEP 2: Does the patient interact appropriately half or more of the time? Yes. SOCIAL INTERACTION - STEP 3: How often does the patient need help to interact appropriately? 25-49% of the time SOCIAL INTERACTION - SCORE: 3-MOD PROBLEM SOLVING: PROBLEM SOLVING - STEP 1: Does the patient need help to solve complex problems such as managing a checking account or confronti ng interpersonal problems? Yes. PROBLEM SOLVING - STEP 2: Does the patient solve basic routine problems half or more of the time? Yes. PROBLEM SOLVING - STEP 3: How often does the patient need help to solve basic routine problems? 25%-49% of the time PROBLEM SOLVING - SCORE: 3-MOD MEMORY: MEMORY - STEP 1: Does the patient need help to remember frequently encountered people, daily routines, and executing r equests? Yes. MEMORY - STEP 2: How often does the patient need help to remember frequently encountered people, daily routines, and e xecuting requests? 25% - 49% of the time MEMORY - SCORE: 3-MOD SIGNATURE PANEL: The following modified sections: Eating - Score, Grooming - Score, Bathing - Score, Dressing - Upper Body - Score, Dressing - Lower Body - Score, Toileting - Score, Bladder Management - Score, Bowel Man agement - Score, Transfers: Bed, Chair, Wheelchair - Score, Transfers: Toilet - Score, Transfers: Susie wer - Score, Transfers: Tub - Score, Locomotion: Walk - Score, Locomotion: Wheelchair - Score, Compre hension - Score, Expression - Score, Social Interaction - Score, Problem Solving - Score, Memory - Sc ore were [electronically] signed by Manpreet Kaur on Sun Jan 14 2018 13:36:57 GMT-0500 (Central Daylight Time)
--- NOTE | 2018-01-14 19:37 | CON ---
Date of Consultation: 01/14/2018 Additional Consulting Physician: Dr. Malcolm. Reason For Consultation: Elevated BUN and creatinine, fluid management, end-stage renal disease, hyp ertension. History Of Present Illness: This is a pleasant 52-year-old gentleman, well known to me from the dial ysis with significant past medical history of end-stage renal disease, on hemodialysis, Monday, , Monday at [facility] through [facility], hypertension, hyperlipidemia, diabet es complicated with neuropathy and nephropathy, coronary artery disease complicated with congestive h eart failure status post PTCA, peripheral vascular disease, status post bilateral below-knee amputati on, the patient was in his regular state of health. Admitted for below-knee amputation on the left. Tolerated well. Transferred to rehab for further care. The patient is scheduled for dialysis [facility]. Past Medical History: As above. Allergies: NO KNOWN DRUG ALLERGIES. Family History: Positive for diabetes and hypertension. Social History: Denies smoking. Denies drinking. Denies drugs abuse. Past Surgical History: Include: 1.PTCA and peripheral vascular disease, angioplasty. 2.Bilateral below-knee amputation. 3.PermCath placement. Review of Systems: Head and Neck: No red eye. No ear pain. GI: No nausea. No vomiting. : No polyuria. No dysuria. No hematuria. 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 Respiratory: No shortness of breath. Cardiovascular: No chest pain. Neuro: Has neuropathy. Musculoskeletal: Has pain on the stump. Endocrine: No polydipsia. Skin: No rash. Medications: Currently the patient on Zosyn, vancomycin, Plavix, Epogen, ferrous sulfate, lisinopril 10 daily, metoprolol 25, alprazolam, Renvela, vancomycin. Home medications include ranitidine, Plavix, Xanax, Lasix, Epogen, hydrocodone, Januvia, lisinopril, metoprolol, Renvela, vancomycin. Physical Examination: Vital Signs: When I saw the patient, blood pressure of 165/90, pulse of 76. Chest: Clear to auscultation. Heart: S1, S2. Systolic murmur. Abdomen: Soft, nontender. Extremities: Bilateral below-knee amputation. Neuro: Alert, little bit sleepy. Laboratory Data: WBC 10.8, H and H 11.6/35.9, platelet 137. Sodium 140, potassium 3.9, bicarb 27, B UN 45, creatinine 6.5, calcium 8.9. Assessment And Plan: 1.End-stage renal disease. We will continue the patient on dialysis Monday, Monday, Monday. We will arrange for dialysis tomorrow. 2.Anemia. Continue on holding the Epogen. 3.Secondary hyperparathyroidism. Continue binder. 4.Hypertension, uncontrolled. Increase the lisinopril. 5.Peripheral vascular disease, status post bilateral amputee. Continue antibiotic. We will follow up the Surgery. Case discussed with the patient, verbalized understanding. I discussed with the sheridan phillips, agreed on the plan. ULYSSES/DONNA Voice ID: [id number] Report ID: [id number]
[2018-01-14] MEDS: RANITIDINE 150 MG TABLET PO SCH (20:22)
[2018-01-15] MEDS: PIPER/TAZO/NS 2.25gm 2.25 GM/50 ML BAG IVPB SCH ×4 (00:57→19:46)
--- NOTE | 2018-01-15 03:46 | FAST ---
SHIFT START DATE/TIME: 01/14/2018 19:00 (CDT) SHIFT END DATE/TIME: 01/15/2018 07:00 (CDT) NAME MARIBEL MIJARES DATE OF : 1965 DATE OF ADMISSION: 01/13/2018 05:31 (CDT) PHONE: AGE: 52 N# [id number] GENDER: Male ENCOUNTER PHYSICIAN: Dr. Cameron Malcolm M.D. ADMISSION DIAGNOSIS: - Amputation of Limb 05 - Bilateral Lower Limb Below the Knee (BK/BK) (05.7) Bilateral BKA. EATING: Activity did not occur on this shift EATING - SCORE: 0-UNK GROOMING: Activity did not occur on this shift GROOMING - SCORE: 0-UNK BATHING: Activity did not occur on this shift BATHING - SCORE: 0-UNK DRESSING - UPPER BODY: Activity did not occur on this shift ARTICLES SCORE Total number of steps: 0 DRESSING - UPPER BODY - SCORE: 0-UNK DRESSING - LOWER BODY: Activity did not occur on this shift ARTICLES SCORE Total number of steps: 0 DRESSING - LOWER BODY - SCORE: 0-UNK TOILETING: Activity did not occur on this shift TOILETING - SCORE: 0-UNK BLADDER MANAGEMENT: BLADDER MANAGEMENT - STEP 1: Does the patient control the bladder completely and intentionally without equipment or devices or med ications, and is always continent? Yes. BLADDER MANAGEMENT - SCORE: 7-IND BLADDER MANAGEMENT - FREQUENCY OF ACCIDENTS: BLADDER MANAGEMENT(FA) - STEP 1: How many accidents has the patient had during the current shift? 0 BOWEL MANAGEMENT: BOWEL MANAGEMENT - STEP 1: Does the patient control bowels completely and intentionally without equipment devices or medications AND is always continent? Yes. BOWEL MANAGEMENT - SCORE: 7-IND BOWEL MANAGEMENT - FREQUENCY OF ACCIDENTS: BOWEL MANAGEMENT(FA) - STEP 1: How many accidents has the patient had during the current shift? 0 TRANSFERS: BED, CHAIR, WHEELCHAIR: Activity did not occur on this shift TRANSFERS: BED, CHAIR, WHEELCHAIR - SCORE: 0-UNK TRANSFERS: TOILET: Activity did not occur on this shift TRANSFERS: TOILET - SCORE: 0-UNK TRANSFERS: SHOWER: Activity did not occur on this shift TRANSFERS: SHOWER - SCORE: 0-UNK TRANSFERS: TUB: Activity did not occur on this shift TRANSFERS: TUB - SCORE: 0-UNK LOCOMOTION: WALK: Activity did not occur on this shift LOCOMOTION: WALK - SCORE: 0-UNK LOCOMOTION: WHEELCHAIR: Activity did not occur on this shift LOCOMOTION: WHEELCHAIR - SCORE: 0-UNK COMPREHENSION: COMPREHENSION: TYPE: Both COMPREHENSION - STEP 1: Does the patient require help to understand complex and abstract ideas (such as current events, finan caitlyn, discharge planning, medical issues, relationships, etc)? Yes. COMPREHENSION - STEP 2: Does the patient require help to understand questions or statements about basic needs or ideas (such as hunger, thirst, sleep, safety, daily schedule, room location, or discomfort) half or more of the t [place]? No. COMPREHENSION - STEP 3: How often does the patient need help to understand directions and conversation about basic needs? Les s than 10% of the time COMPREHENSION - SCORE: 5-SUP EXPRESSION EXPRESSION: TYPE: Both EXPRESSION - STEP 1: Does the patient require help expressing complex and abstract ideas (such as current events, finances , discharge planning, medical issues, relationships, etc)? Yes. EXPRESSION - STEP 2: Does the patient require help to express basic necessities or ideas (such as hunger, thirst, sleep, s afety, daily schedule, room location, or discomfort) half or more of the time? No. EXPRESSION - STEP 3: How often does the patient need help to express directions and conversation about basic needs? Less t chahal 10% of the time EXPRESSION - SCORE: 5-SUP SOCIAL INTERACTION: SOCIAL INTERACTION - STEP 1: Does the patient require a helper to interact with others in social and therapeutic situations? Yes. SOCIAL INTERACTION - STEP 2: Does the patient interact appropriately half or more of the time? Yes. SOCIAL INTERACTION - STEP 3: How often does the patient need help to interact appropriately? Less than 10% of the time SOCIAL INTERACTION - SCORE: 5-SUP PROBLEM SOLVING: PROBLEM SOLVING - STEP 1: Does the patient need help to solve complex problems such as managing a checking account or confronti ng interpersonal problems? Yes. PROBLEM SOLVING - STEP 2: Does the patient solve basic routine problems half or more of the time? Yes. PROBLEM SOLVING - STEP 3: How often does the patient need help to solve basic routine problems? Less than 10% of the time PROBLEM SOLVING - SCORE: 5-SUP MEMORY: MEMORY - STEP 1: Does the patient need help to remember frequently encountered people, daily routines, and executing r equests? Yes. MEMORY - STEP 2: How often does the patient need help to remember frequently encountered people, daily routines, and e xecuting requests? Less than 10% of the time MEMORY - SCORE: 5-SUP SIGNATURE PANEL: The following modified sections: Eating - Score, Grooming - Score, Bathing - Score, Dressing - Upper Body - Score, Dressing - Lower Body - Score, Toileting - Score, Bladder Management - Score, Bowel Man agement - Score, Transfers: Bed, Chair, Wheelchair - Score, Transfers: Toilet - Score, Transfers: Susie wer - Score, Transfers: Tub - Score, Locomotion: Walk - Score, Locomotion: Wheelchair - Score, [place]pres [place] - Score, Social Interaction - Score, Problem Solving - Score, Memory - Score, Comprehension - Sc ore were [electronically] signed by Yolanda Gomez on MonJan 15 2018 02:46:55 GMT-0500 (Central Day light Time)
[2018-01-15] MEDS: HYDROCODONE/APAP 10/325 TAB PO PRN ×2 (03:54→10:40)
[2018-01-15] MEDS: METOPROLOL TAR 25 MG TAB PO SCH (05:12)
[2018-01-15] MEDS: LISINOPRIL 10 MG TAB PO SCH ×2 (07:20→20:12)
[2018-01-15] MEDS: INSULIN -REGULAR HUMAN 50 UNIT/0.5 ML ML SQ SCH ×4 (07:30→20:20)
[2018-01-15] MEDS: COLLAGENASE 30 GM OINTMENT TOP SCH ×2 (07:53→22:00)
[2018-01-15] MEDS: PREGABALIN 75 MG CAP PO SCH (07:54)
[2018-01-15] MEDS: FE SULF/FA/VIT B COMP & C TAB PO SCH (07:54)
[2018-01-15] MEDS: CLOPIDOGREL 75 MG TABLET PO SCH (07:54)
[2018-01-15] MEDS: SEVELAMER CARBONATE 800 MG TABLET PO SCH ×3 (07:55→17:00)
[2018-01-15] MEDS: FERROUS SULFATE 325 MG TAB PO SCH (07:55)
[2018-01-15] MEDS: FUROSEMIDE 40 MG TABLET PO SCH (08:00)
[2018-01-15] MEDS: PROMOD 30 ML DOSE PO SCH ×2 (08:00→20:13)
[2018-01-15] MEDS: JUVEN PACKET PO SCH ×2 (08:01→20:12)
[2018-01-15] MEDS: HEPARIN 5000 UNIT/ML 1 ML VIAL SQ SCH ×2 (09:00→20:00)
--- NOTE | 2018-01-15 13:32 | R.HP ---
FACILITY: [facility] ENCOUNTER DATE AND TIME: 01/15/2018 12:28 (CDT) MR#: [id number] NAME MARIBEL MIJARES ADDRESS: [address] [place] [address]: [place] [address] PHONE: DATE OF : 1965 AGE: 52 SSN# [id number] GENDER: Male DEXTERITY Right-handed MARITAL STATUS RACE PRE-HOSPITAL LIVING SETTING 01 - Home (private home/apt. board/care, assisted living, snf, transitional living) PRE-HOSPITAL LIVING WITH Family/Relatives ENCOUNTER PHYSICIAN: Dr. Cameron Malcolm M.D. REFERRING DOCTOR: DR. MOUNIKA FRENCH DATE OF ADMISSION: 01/13/2018 05:31 (CDT) REFERRING FACILITY [facility] HOME TYPE AND DETAILS: Type of home: single family house # of levels in the residence: 1 # of steps within the residence: 0 # of steps to enter the residence: 4 ADMISSION DIAGNOSIS: Bilateral BKA ONSET DATE: 12/26/2017 PRIMARY DIAGNOSIS-RELATED SURGERIES: Left Below the Knee Amputation on01/10/2018 SECONDARY/COMORBID DIAGNOSES (TIERED): - Tier 1 Dependence on renal dialysis (Z99.2) - Tier 3 Type 2 diabetes mellitus with diabetic neuropathy, unspecified (E11.40) - Non-Tiered Infection of amputation stump, unspecified extremity (T87.40) - N/A HYPERTENSION CHF CORONARY ARTERY DISEASE WITH MULTIPLE STENTS ESRD HYPERLIPIDEMIA ANXIETY SEVERE PERIPHERAL VASCULAR DISEASE GERD HISTORY OF PRESENT ILLNESS (HPI): Pt. is a 52 yo Right-handed male. On 12/26/2017 he was admitted to [facility] with diagnosis Bilateral BKA. His impairment category is Amputation of Limb 05 - Bilateral Lower Limb Below the Knee (BK/BK) (05.7 ). Pre-morbidly, Pt. was independent/mod-I in Sphincter Control, Transfers Control, Communication, Socia l Cognition, Self-Care, and Locomotion; and he had good Sphincter Control. Currently, he has deficits of Safety Awareness, Transfers Control, Balance, Locomotion, Endurance, an d Self-Care. Pt. is now referred to [facility] for acute in-patient rehabilitation in order to maximize patient's functional independence in activities of daily living, strength, ROM, and mobi lity. Patient has realistic goal of being discharged at assistance level 6-Sharon to reside at Home with Fam jacqueline/Relatives. 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 SOCIAL HISTORY: - Home Living Family/Relatives REVIEW OF SYSTEMS: - Gen No Chills No Fatigue No Fever - Eyes No Double Vision No itchiness - ENMT No Difficulty Swallowing - CVS No Chest Discomfort No Chest Pain Fatigue No Weight Gain - Resp No Cough No Shortness of Breath - GI Continent No Abdominal Pain No Constipation No Diarrhea - Continent No Kidney Pain No Painful Urination No Urinary Urgency - MSK No Joint Pain Muscle Cramps Stiffness - Skin No Itching No Rash No Suspicious Lesions - Neuro Coordination Difficulty No Difficulty with Concentration Memory Loss No Seizures Weakness - Psych No Anxiety No Depression No HIV Exposure No Persistent Infections No Seasonal Allergies - Endo No Cold/Heat Intolerance No Excessive Hunger No Excessive Thirst No Excessive Urination PHYSICAL EXAM - Gen Alert and awake Lying in bed No apparent distress Oriented to: person, time, and place - Skin left lower extremity incisions intact Normacephalic - Eyes No abnormalities - ENMT No abnormalities - Neck No abnormalities - CVS RRR - Chest Clear - Resp Clear to auscultation - Abd Soft - GI Non distended Deferred - No abnormalities - Ext No significant edema. - MSK No Stiffness - Neuro Incoordination and left leg weakness. - Psych No abnormalities VITAL SIGNS Temperature: 99.2 F SBP/DBP: 154/79 Pulse: 73 Resp: 16 Vital signs stable, afebrile NURSING: - Shower allowing shower - Lab Results blood Sugar Check ACHS - Skin care per protocol PRECAUTIONS: - Fall Precaution Bed and chair alarm ACTIVITIES OOB only with supervision FUNCTIONAL STATUS: - Self-Care A. Eating Ind Ind B. Grooming Ind Ind C. Bathing Ind sup D. Dressing - Upper Ind sup E. Dressing - Lower Ind Vinny F. Toileting Ind Vinny - Sphincter Control G: Bladder control Ind Ind H: Bowel control Ind Ind - Transfers Control I. Bed/Chair/Wheelchair Ind Vinny J. Toilet Ind Vinny K. Tub/Shower Ind ADNO - Locomotion L. Walk/Wheelchair (C) Ind Vinny L. Walk/Wheelchair (W) Ind Vinny M. Stairs Ind ADNO - Communication N. Comprehension (B) Ind hSaron O. Expression (B) Ind Sharon - Social Cognition P. Social Interaction Ind Sharon Q. Problem Solving Ind Sharon R. Memory Ind Sharon - Endurance Fair - Balance Fair - Safety Awareness Fair CURRENT FUNC. DEFICITS: Safety Awareness, Transfers Control, Balance, Locomotion, Endurance, and Self-Care ASSESSMENT: Pt. is a 52 yo Right-handed male.On 12/26/2017 he was admitted to [facility] with diagnosis Bilateral BKA.His impairment category is Amputation of Limb 05 - Bilateral Low er Limb Below the Knee (BK/BK) (05.7).Pre-morbidly, Pt. was independent/mod-I in Sphincter Control, T ransfers Control, Communication, Social Cognition, Self-Care, and Locomotion; and he had good Sphinct er Control.Currently, he has deficits of Safety Awareness, Transfers Control, Balance, Locomotion, En durance, and Self-Care.Pt. is now referred to [facility] for acute in-patient rehabilitation in order to maximize patient's functional independence in activities of daily living, strength, ROM, and mobility.- Rehab Goal Patient has realistic goal of being discharged at assistance level 6-Sharon to reside at Home with Fam jacqueline/Relatives. REHAB PLAN: - Physical Therapy Gait dysfunction - to improve, our physical therapists will perform initial evaluation of pt's status upon admission and devise an individualized program for Gait Training, and Wheel Chair mobility Inability to transfer - to improve, our physical therapists will perform initial evaluation of pt's s tatus upon admission and devise an individualized program for Bed mobility Need for home safety evaluation - to improve, our physical therapists will perform initial evaluation of pt's status upon admission and devise an individualized program for Home Evaluation Need in caregiver upon discharge - to improve, our physical therapists will perform initial evaluatio n of pt's status upon admission and devise an individualized program for Caregiver Training New precaution - to improve, our physical therapists will perform initial evaluation of pt's status u blayne admission and devise an individualized program for Patient precaution education Edema - to improve, our physical therapists will perform initial evaluation of pt's status upon admi ssion and devise an individualized program for Elevation Training, and Lymphedema Therapy Poor balance - to improve, our physical therapists will perform initial evaluation of pt's status upo n admission and devise an individualized program for Balance Training Poor endurance - to improve, our physical therapists will perform initial evaluation of pt's status u blayne admission and devise an individualized program for Endurance Training Weakness - to improve, our physical therapists will perform initial evaluation of pt's status upon ad mission and devise an individualized program for Aquatic Therapy, Neuromuscular Reeducation, and Stre ngthening Achieving independence - to improve, our physical therapists will perform initial evaluation of pt's status upon admission and devise an individualized program for Community Reintegration Activities - Occupational Therapy ADL deficits - to improve, our occupation therapists will perform initial evaluation of pt's status u blayne admission and devise an individualized program for Bathing, Bed mobility, Community Reintegration , Cooking, Dressing, Eating, Fine Motor Skills, Grooming, Homemaking, Kitchen Mobility, Laundry, Sharon ent Education, Safety Awareness, Splinting - Positioning, Transfers(Toilet, Tub, Shower), and Wheel C hair Management Need for personal care worker - to improve, our occupation therapists will perform initial evaluation of pt's s tatus upon admission and devise an individualized program for Caregiver Training Weakness - to improve, our occupation therapists will perform initial evaluation of pt's status upon admission and devise an individualized program for Aquatic Therapy, Balance, Endurance, UE ROM, and U E strengthening MEDICAL PLAN: - Diet Type Start Regular - Diet - Liquid Texture Start Regular - Tube Feed Start N/A - Lab Results blood Sugar Check ACHS - Weight Bearing Precaution TTWB left LE - Fall Precaution Bed and chair alarm - Skin care per protocol - N/A Perform Consult Certified Prosthetic for prosthesis construction - Diet - Solid Texture Regular - Shower shower DISCHARGE PLAN: - Estimated Length of Stay (days) 11. - Consensus on plan Discharge plan has been discussed with primary caregiver. Patient/Family is in agreement with the sussy n. Primary caregiver is in agreement with the plan. - Patient/Family Goals Return home with assistance. - Planned Living Setting Upon Discharge Home, to live with Family/Relatives. SIGNATURE PANEL: (CDT)
--- NOTE | 2018-01-15 13:32 | PAPE ---
PATIENT: [facility] MR# [id number] REFERRING DOCTOR DR. MOUNIKA FRENCH EVALUATION DATE AND TIME 01/15/2018 12:32 (CDT) NAME MARIBEL MIJARES DATE OF 1965 AGE 52 PHONE N# [id number] GENDER male EVALUATING PHYSICIAN Dr. Cameron Malcolm M.D. ADMISSION DIAGNOSIS: Bilateral BKA ONSET DATE 12/26/2017 SECONDARY/COMORBID DIAGNOSES TIERED: - Tier 1 Dependence on renal dialysis (Z99.2) - Tier 3 Type 2 diabetes mellitus with diabetic neuropathy, unspecified (E11.40) - Non-Tiered Infection of amputation stump, unspecified extremity (T87.40) - N/A HYPERTENSION CHF CORONARY ARTERY DISEASE WITH MULTIPLE STENTS ESRD HYPERLIPIDEMIA ANXIETY SEVERE PERIPHERAL VASCULAR DISEASE GERD POST-ADMISSION FUNCTIONAL/MEDICAL STATUS: - Bladder Same accident frequency: Ind - No accidents in the past 7 days - Bowel Same accident frequency: Ind - No accidents in the past 7 days - Walking Same score based on distance walked: 0(N/A) - Wheelchair Same score based on distance traveled: 0(N/A) STATUS CHANGE EVALUATION: No change in Functional or Medical Status is identified compared with Pre-Admission screening. PATIENT NEEDS CLOSE MEDICAL SUPERVISION BY A REHABILITATION PHYSICIAN FOR: Bowel and Bladder Management Coordination of Treatment Team Diabetes Management Medical and Co-Morbidity Management DVT Management Pain Management Wound Care Post-Op Complications PATIENT REQUIRES 24X7 REHAB NURSING FOR MEDICAL AND FUNCTIONAL MGT. OF THE FOLLOWING DEFICITS: ADL's Ambulation Bowel and Bladder Management Cognition Communication Disease Management Medication Management Patient/Family Education Providing Safe Environment Skin Integrity Transfers Pain Management PATIENT REQUIRES INTENSIVE, COORDINATED INTERDISCIPLINARY APPROACH TO REHAB: Arranging Home Equipment/Services Discharge Planning Family Intervention/Training High School Director/Case Management LIST OF IDENTIFIED AND POTENTIAL PROBLEMS: Alteration in leisure activities Bladder, Incontinence Blood Pressure, Hypertension/hypotension Issues Bowel, Incontinence Diabetes, Hyperglycemia/hypoglycemia Issues Fluid volume overload related to Congestive Heart Failure (CHF) Infection, Actual or Potential Mobility Impaired Pain, Alteration in Comfort Self Care Deficit Skin Integrity, Actual or Potential Urinary Tract Infection (UTI), Actual or Potential RISK FOR COMPLICATIONS - Hypertension CVA. Hypotension. NV. TIA. - GERD Alteration in sleep. Aspiration. Dehydration. Malnutrition. Pain. INTERVENTIONS - Hypertension - GERD Altered diet. Elevation of head of bed. Medications. Nausea/vomiting. Nighttime food/fluid restrictio ns. Nutrition. PATIENT COULD BE AT RISK FOR COMPLICATIONS FROM ADVERSE MEDICAL CONDITIONS DUE TO HIS/HER COMORBIDITI ES AND THE RIGORS OF THE INTENSIVE REHABILLITATION PROGRAM. METHODS OR INTERVENTIONS TO AVOID COMPLIC ATIONS INCLUDE: - Deep Vein Thrombosis (DVT) Prophylaxis therapy for prevention . Sequential Compression Device (SCD). TE D Hose. - Bleeding Assess lab values and manage abnormalities. Nursing to teach precautions for anti-coagulation therapy . Wound to be assessed every shift. - Infection Clinical staff to assess and manage the signs and symptoms of infection including fever, redness, war mth, etc. - Urinary Tract Infection - Falls Patient will be evaluated for Fall Precautions and will be placed on Fall Precautions as indicated pe r protocol. - Skin Breakdown Nursing will assess skin daily using assessment tool and will place on Skin Breakdown Precautions as indicated per protocol. - Pain Clinical staff may employ non-medication methods such as massage, distraction, decrease stimulus, etc . as needed. Clinical staff will assess patient's pain level every shift per protocol to assess and e nsure pain management effectiveness. Medications will be given and the pain level re-assessed. PRELIMINARY PLAN OF CARE: - Physical Therapy Patient needs Physical Therapy for a daily minimum of 1.5 hours at least 5 out of 7 days, to improve: Mobility, Strengthening, Transfers, Stretching, ROM, Endurance, Ability to manage stairs, Gait, and Balance. - Rehabilitation Nursing Patient requires 24x7 Rehabilitation Nursing for: Pain Issues, Identifying and preventing risk factor s, Monitoring and reporting current medical conditions, Assisting with ambulation and transfer, Alberto ting with all ADL-s, Teaching patients about disease process and medications, Family teaching, Provid ing safe environment, Bowel and Bladder Issues, Skin Integrity, and Medication Management. Patient needs High School Director and/or Case Management for: Discharge Planning, Arranging Home Equipmen t or Services, and Family Interventions. - Dietary and Nutrition Services Patient needs Dietary and Nutrition Services for: Adequate Nutrition, Nutritional Supplements, and Nu tritional Education. - Occupational Therapy Patient needs Occupational Therapy for a daily minimum of 1.5 hours at least 5 out of 7 days, to impr ove Activities of Daily Living, including: Eating, Grooming, Bathing, Dressing, Toileting, Toilet Tra nsfers, Community Reintegration, Higher functional activities, Adaptive Equipment, Splinting, Househo ld Tasks, and Other activities as determined. POTENTIAL FUNCTIONAL GOALS FOR PATIENT TO ACHIEVE BY DISCHARGE: - Safety Precaution Patient will remain free from falls or injury at time of discharge. - Bed Mobility Patient will perform bed mobility at 4-Vinny level of assistance. - Transfers Patient will complete transfers from bed to chair at 4-Vinny level of assistance. - Mobility Patient will ambulate 150 ft with 4-Vinny level of assistance with RW. PATIENT REHAB POTENTIAL Expected level of measurable improvement will be of a practical value to patient's functional capacit y or adaptations to impairments Has a viable Discharge Plan Medically appropriate; condition is sufficiently stable to participate in intensive rehab program Patient is able and expected to receive 3 hours of individualized therapy daily on at least 5 of ever y 7 days Patient's prognosis for significant practical improvement within a reasonable period of time appears Good DISCHARGE PLAN: - Estimated Length of Stay (days) 11. - Consensus on plan Discharge plan has been discussed with primary caregiver. Patient/Family is in agreement with the sussy n. Primary caregiver is in agreement with the plan. - Patient/Family Goals Return home with assistance. - Planned Living Setting Upon Discharge Home, to live with Family/Relatives. CONCLUSION ON REHABILITATION NECESSITY: I have evaluated patient's pre-admission functional status and, comparing it to the patient's post-ad mission functional status now, I conclude that the pre-admission assessment was accurate. Patient's c ondition on admission supports the medical necessity of admission to IRF. It is safe to proceed with patient's therapy program. SIGNATURE PANEL: (CDT)
[2018-01-15] MEDS ORDERED: MANNITOL 25% 12.5 GM/50 ML VIAL IV PRN (15:00)
--- NOTE | 2018-01-15 15:58 | FAST ---
SHIFT START DATE/TIME: 01/15/2018 07:00 (CDT) SHIFT END DATE/TIME: 01/15/2018 19:00 (CDT) NAME MARIBEL MIJARES DATE OF : 1965 DATE OF ADMISSION: 01/13/2018 05:31 (CDT) PHONE: AGE: 52 N# [id number] GENDER: Male ENCOUNTER PHYSICIAN: Dr. Cameron Malcolm M.D. ADMISSION DIAGNOSIS: - Amputation of Limb 05 - Bilateral Lower Limb Below the Knee (BK/BK) (05.7) Bilateral BKA. EATING: EATING - STEP 1: Does the patient require assistance when eating? Yes. EATING - STEP 2: Does the patient require the assistance of a helper? Yes. EATING - STEP 3: Does the patient perform half or more of the eating tasks? Yes. EATING - STEP 4: Does the patient need only supervision, cuing, coaxing OR help to apply an orthosis OR help to cut fo od, open containers, pour liquids, or butter bread? Yes. EATING - SCORE: 5-SUP GROOMING: Activity did not occur on this shift GROOMING - SCORE: 0-UNK BATHING: Activity did not occur on this shift BATHING - SCORE: 0-UNK DRESSING - UPPER BODY: Activity did not occur on this shift ARTICLES SCORE Total number of steps: 0 DRESSING - UPPER BODY - SCORE: 0-UNK DRESSING - LOWER BODY: Activity did not occur on this shift ARTICLES SCORE Total number of steps: 0 DRESSING - LOWER BODY - SCORE: 0-UNK TOILETING: Activity did not occur on this shift TOILETING - SCORE: 0-UNK BLADDER MANAGEMENT: Patient is on renal dialysis or peritoneal dialysis and no voiding activity BLADDER MANAGEMENT - SCORE: 7-IND BLADDER MANAGEMENT - FREQUENCY OF ACCIDENTS: BLADDER MANAGEMENT(FA) - STEP 1: How many accidents has the patient had during the current shift? 0 BOWEL MANAGEMENT: Activity did not occur on this shift BOWEL MANAGEMENT - SCORE: 7-IND BOWEL MANAGEMENT - FREQUENCY OF ACCIDENTS: BOWEL MANAGEMENT(FA) - STEP 1: How many accidents has the patient had during the current shift? 0 TRANSFERS: BED, CHAIR, WHEELCHAIR: TRANSFERS: BED, CHAIR, WHEELCHAIR - STEP 1: Does the patient require assistance with bed, chair, or wheelchair transfers? Yes. TRANSFERS: BED, CHAIR, WHEELCHAIR - STEP 2: Does the patient require the assistance of a helper? Yes. TRANSFERS: BED, CHAIR, WHEELCHAIR - STEP 3: How much assistance does the patient require from the helper? Only supervision TRANSFERS: BED, CHAIR, WHEELCHAIR - SCORE: 5-SUP TRANSFERS: BED, CHAIR, WHEELCHAIR - COMMENTS: W/c positioned with breaks on facing bed--pt lifts pt with arms and places himself into w/c TRANSFERS: TOILET: TRANSFERS: TOILET - STEP 1: Does the patient require assistance with toilet transfers? Yes. TRANSFERS: TOILET - STEP 2: Does the patient require the assistance of a helper? Yes. TRANSFERS: TOILET - STEP 3: How much assistance does the patient require from the helper? Patient performs half or more of the tr ansferring tasks TRANSFERS: TOILET - STEP 4: Does the patient need only incidental help such as contact guard or steadying during toilet transfer? No. Patient needs more than incidental help TRANSFERS: TOILET - SCORE: 3-MOD TRANSFERS: SHOWER: Activity did not occur on this shift TRANSFERS: SHOWER - SCORE: 0-UNK TRANSFERS: TUB: Activity did not occur on this shift TRANSFERS: TUB - SCORE: 0-UNK LOCOMOTION: WALK: Activity did not occur on this shift LOCOMOTION: WALK - SCORE: 0-UNK LOCOMOTION: WHEELCHAIR: Activity did not occur on this shift LOCOMOTION: WHEELCHAIR - SCORE: 0-UNK COMPREHENSION: COMPREHENSION: TYPE: Both COMPREHENSION - STEP 1: Does the patient require help to understand complex and abstract ideas (such as current events, finan caitlyn, discharge planning, medical issues, relationships, etc)? Yes. COMPREHENSION - STEP 2: Does the patient require help to understand questions or statements about basic needs or ideas (such as hunger, thirst, sleep, safety, daily schedule, room location, or discomfort) half or more of the t [place]? No. COMPREHENSION - STEP 3: How often does the patient need help to understand directions and conversation about basic needs? Les s than 10% of the time COMPREHENSION - SCORE: 5-SUP EXPRESSION EXPRESSION: TYPE: Both EXPRESSION - STEP 1: Does the patient require help expressing complex and abstract ideas (such as current events, finances , discharge planning, medical issues, relationships, etc)? Yes. EXPRESSION - STEP 2: Does the patient require help to express basic necessities or ideas (such as hunger, thirst, sleep, s afety, daily schedule, room location, or discomfort) half or more of the time? No. EXPRESSION - STEP 3: How often does the patient need help to express directions and conversation about basic needs? Less t chahal 10% of the time EXPRESSION - SCORE: 5-SUP SOCIAL INTERACTION: SOCIAL INTERACTION - STEP 1: Does the patient require a helper to interact with others in social and therapeutic situations? No. SOCIAL INTERACTION - STEP 2: Does the patient need extra time in social situations, OR does s/he interact with staff, other patien ts, and family members ONLY in structured environments, OR does s/he require medication for social in teraction? Yes, patient needs extra time SOCIAL INTERACTION - SCORE: 6-SRAVANTHI PROBLEM SOLVING: PROBLEM SOLVING - STEP 1: Does the patient need help to solve complex problems such as managing a checking account or confronti ng interpersonal problems? Yes. PROBLEM SOLVING - STEP 2: Does the patient solve basic routine problems half or more of the time? Yes. PROBLEM SOLVING - STEP 3: How often does the patient need help to solve basic routine problems? 10%-24% of the time PROBLEM SOLVING - SCORE: 4-MIN MEMORY: MEMORY - STEP 1: Does the patient need help to remember frequently encountered people, daily routines, and executing r equests? Yes. MEMORY - STEP 2: How often does the patient need help to remember frequently encountered people, daily routines, and e xecuting requests? 10% - 24% of the time MEMORY - SCORE: 4-MIN SIGNATURE PANEL: The following modified sections: Eating - Score, Grooming - Score, Bathing - Score, Dressing - Upper Body - Score, Dressing - Lower Body - Score, Toileting - Score, Bladder Management - Score, Bowel Man agement - Score, Transfers: Bed, Chair, Wheelchair - Score, Transfers: Bed, Chair, Wheelchair - Comme nts:, Transfers: Toilet - Score, Transfers: Shower - Score, Transfers: Tub - Score, Locomotion: Walk - Score, Locomotion: Wheelchair - Score, Comprehension - Score, Expression - Score, Social Interactio n - Score, Problem Solving - Score, Memory - Score were [electronically] signed by Amadeo Cole on MonJan 15 2018 14:59:10 T-0500 (Central Daylight Time)
[2018-01-15] MEDS: hydrOXYzine HCl 25 MG TAB PO PRN (16:34)
[2018-01-15] MEDS: RANITIDINE 150 MG TABLET PO SCH (20:14)
[2018-01-15] MEDS: HYDROCODONE/APAP 5/325 MG TAB PO PRN (20:14)
[2018-01-15] MEDS ORDERED: NA CHLORIDE 0.9% 250 ML ONE (21:30)
[2018-01-15] MEDS ORDERED: VANCOMYCIN 1 GM/VIAL ONE (21:34)
--- NOTE | 2018-01-16 02:10 | FAST ---
SHIFT START DATE/TIME: 01/15/2018 19:00 (CDT) SHIFT END DATE/TIME: 01/16/2018 07:00 (CDT) NAME MARIBEL MIJARES DATE OF : 1965 DATE OF ADMISSION: 01/13/2018 05:31 (CDT) PHONE: AGE: 52 N# [id number] GENDER: Male ENCOUNTER PHYSICIAN: Dr. Cameron Malcolm M.D. ADMISSION DIAGNOSIS: - Amputation of Limb 05 - Bilateral Lower Limb Below the Knee (BK/BK) (05.7) Bilateral BKA. EATING: Activity did not occur on this shift EATING - SCORE: 0-UNK GROOMING: Activity did not occur on this shift GROOMING - SCORE: 0-UNK BATHING: Activity did not occur on this shift BATHING - SCORE: 0-UNK DRESSING - UPPER BODY: Patient is not dressing in public clothing ARTICLES SCORE Total number of steps: 0 DRESSING - UPPER BODY - SCORE: 0-UNK DRESSING - LOWER BODY: Patient is not dressing in public clothing ARTICLES SCORE Total number of steps: 0 DRESSING - LOWER BODY - SCORE: 0-UNK TOILETING: TOILETING - STEP 1: Does the patient require assistance with toileting? Yes. TOILETING - STEP 2: Does the patient require the assistance of a helper? Yes. TOILETING - STEP 3: How much assistance does the patient require from the helper? Only supervision TOILETING - SCORE: 5-SUP BLADDER MANAGEMENT: Patient is on renal dialysis or peritoneal dialysis and no voiding activity BLADDER MANAGEMENT - SCORE: 7-IND BOWEL MANAGEMENT: Activity did not occur on this shift BOWEL MANAGEMENT - SCORE: 7-IND TRANSFERS: BED, CHAIR, WHEELCHAIR: TRANSFERS: BED, CHAIR, WHEELCHAIR - STEP 1: Does the patient require assistance with bed, chair, or wheelchair transfers? Yes. TRANSFERS: BED, CHAIR, WHEELCHAIR - STEP 2: Does the patient require the assistance of a helper? Yes. TRANSFERS: BED, CHAIR, WHEELCHAIR - STEP 3: How much assistance does the patient require from the helper? Steadying/guiding assistance TRANSFERS: BED, CHAIR, WHEELCHAIR - SCORE: 4-MIN TRANSFERS: TOILET: Activity did not occur on this shift TRANSFERS: TOILET - SCORE: 0-UNK TRANSFERS: SHOWER: Activity did not occur on this shift TRANSFERS: SHOWER - SCORE: 0-UNK TRANSFERS: TUB: Activity did not occur on this shift TRANSFERS: TUB - SCORE: 0-UNK LOCOMOTION: WALK: Activity did not occur on this shift LOCOMOTION: WALK - SCORE: 0-UNK LOCOMOTION: WHEELCHAIR: Activity did not occur on this shift LOCOMOTION: WHEELCHAIR - SCORE: 0-UNK COMPREHENSION: COMPREHENSION - STEP 1: Does the patient require help to understand complex and abstract ideas (such as current events, finan caitlyn, discharge planning, medical issues, relationships, etc)? Yes. COMPREHENSION - STEP 2: Does the patient require help to understand questions or statements about basic needs or ideas (such as hunger, thirst, sleep, safety, daily schedule, room location, or discomfort) half or more of the t [place]? No. COMPREHENSION - STEP 3: How often does the patient need help to understand directions and conversation about basic needs? 10% - 24% of the time COMPREHENSION - SCORE: 4-MIN EXPRESSION EXPRESSION - STEP 1: Does the patient require help expressing complex and abstract ideas (such as current events, finances , discharge planning, medical issues, relationships, etc)? Yes. EXPRESSION - STEP 2: Does the patient require help to express basic necessities or ideas (such as hunger, thirst, sleep, s afety, daily schedule, room location, or discomfort) half or more of the time? No. EXPRESSION - STEP 3: How often does the patient need help to express directions and conversation about basic needs? Less t chahal 10% of the time EXPRESSION - SCORE: 5-SUP SOCIAL INTERACTION: SOCIAL INTERACTION - STEP 1: Does the patient require a helper to interact with others in social and therapeutic situations? No. SOCIAL INTERACTION - STEP 2: Does the patient need extra time in social situations, OR does s/he interact with staff, other patien ts, and family members ONLY in structured environments, OR does s/he require medication for social in teraction? No. SOCIAL INTERACTION - SCORE: 7-IND PROBLEM SOLVING: PROBLEM SOLVING - STEP 1: Does the patient need help to solve complex problems such as managing a checking account or confronti ng interpersonal problems? Yes. PROBLEM SOLVING - STEP 2: Does the patient solve basic routine problems half or more of the time? Yes. PROBLEM SOLVING - STEP 3: How often does the patient need help to solve basic routine problems? 10%-24% of the time PROBLEM SOLVING - SCORE: 4-MIN MEMORY: MEMORY - STEP 1: Does the patient need help to remember frequently encountered people, daily routines, and executing r equests? No. MEMORY - STEP 2: Does the patient have slight difficulty recognizing frequently encountered people, daily routines, or executing requests without the need for repetition or using self-initiated or environmental cues to remember? Yes. MEMORY - SCORE: 6-SRAVANTHI SIGNATURE PANEL: The following modified sections: Eating - Score, Grooming - Score, Dressing - Upper Body - Score, Rubens ssing - Lower Body - Score, Toileting - Score, Bladder Management - Score, Bowel Management - Score, Transfers: Bed, Chair, Wheelchair - Score, Transfers: Toilet - Score, Transfers: Shower - Score, Ash sfers: Tub - Score, Locomotion: Walk - Score, Locomotion: Wheelchair - Score, Comprehension - Score, Expression - Score, Social Interaction - Score, Problem Solving - Score, Memory - Score were [electro nically] signed by Charito Mathur CNA on MonJan 16 2018 01:10:21 T-0500 (Central Daylight Time)
[2018-01-16] MEDS: PIPER/TAZO/NS 2.25gm 2.25 GM/50 ML BAG IVPB SCH ×3 (02:23→17:16)
--- NOTE | 2018-01-16 02:59 | PN ---
Date of Progress Note: 01/15/2018 Chief Complaint: End-stage renal disease, on dialysis. History Of Present Illness: The patient has history of end-stage renal disease due to diabetic kidney disease. He had peripheral vascular disease. He underwent BKA. He is undergoing rehab. He has peripheral vascular disease, coronary artery disease, congestive heart failure. Previously, he underwent PTCA. Review of Systems: Denies fever or chills. Physical Examination: Lungs: Clear to auscultation bilaterally. Heart: S1-S2. Abdomen: Soft, benign. Extremities: Slight peripheral edema. Laboratory Data: Hemoglobin 11.6, WBC 10.8, platelet count 137,000. Impression And Plan: 1. End-stage renal disease. The patient will have dialysis today. Ultrafiltration will be ordered to control volemia. 2. Hypertension. Continue blood pressure medication. 3. Renal osteodystrophy. Continue renal diet and binders. 4. Hypoalbuminemia, malnutrition. Increase p.o. protein intake. ELMER/DONNA Voice ID: [id number] Report ID: [id number] HEATHER
[2018-01-16] MEDS: METOPROLOL TAR 25 MG TAB PO SCH (05:17)
[2018-01-16] MEDS: HYDROCODONE/APAP 5/325 MG TAB PO PRN ×3 (06:18→22:56)
[2018-01-16] MEDS: HEPARIN 5000 UNIT/ML 1 ML VIAL SQ SCH ×2 (07:00→18:59)
[2018-01-16] MEDS: INSULIN -REGULAR HUMAN 50 UNIT/0.5 ML ML SQ SCH ×4 (07:30→20:52)
[2018-01-16] MEDS: PREGABALIN 75 MG CAP PO SCH (08:38)
[2018-01-16] MEDS: FUROSEMIDE 40 MG TABLET PO SCH (08:38)
[2018-01-16] MEDS: FE SULF/FA/VIT B COMP & C TAB PO SCH (08:38)
[2018-01-16] MEDS: FERROUS SULFATE 325 MG TAB PO SCH (08:38)
[2018-01-16] MEDS: SEVELAMER CARBONATE 800 MG TABLET PO SCH ×3 (08:38→17:10)
[2018-01-16] MEDS: LISINOPRIL 10 MG TAB PO SCH ×2 (08:38→20:51)
[2018-01-16] MEDS: COLLAGENASE 30 GM OINTMENT TOP SCH ×2 (08:40→22:30)
[2018-01-16] MEDS: JUVEN PACKET PO SCH ×2 (08:41→20:51)
[2018-01-16] MEDS: PROMOD 30 ML DOSE PO SCH ×2 (08:41→20:51)
[2018-01-16] MEDS: CLOPIDOGREL 75 MG TABLET PO SCH (08:43)
[2018-01-16] MEDS: hydrOXYzine HCl 25 MG TAB PO PRN ×2 (11:53→17:13)
--- NOTE | 2018-01-16 13:36 | FAST ---
SHIFT START DATE/TIME: 01/16/2018 07:00 (CDT) SHIFT END DATE/TIME: 01/16/2018 19:00 (CDT) NAME MARIBEL MIJARES DATE OF : 1965 DATE OF ADMISSION: 01/13/2018 05:31 (CDT) PHONE: AGE: 52 N# [id number] GENDER: Male ENCOUNTER PHYSICIAN: Dr. Cameron Malcolm M.D. ADMISSION DIAGNOSIS: - Amputation of Limb 05 - Bilateral Lower Limb Below the Knee (BK/BK) (05.7) Bilateral BKA. EATING: EATING - STEP 1: Does the patient require assistance when eating? Yes. EATING - STEP 2: Does the patient require the assistance of a helper? Yes. EATING - STEP 3: Does the patient perform half or more of the eating tasks? Yes. EATING - STEP 4: Does the patient need only supervision, cuing, coaxing OR help to apply an orthosis OR help to cut fo od, open containers, pour liquids, or butter bread? Yes. EATING - SCORE: 5-SUP GROOMING: Activity did not occur on this shift GROOMING - SCORE: 0-UNK BATHING: Activity did not occur on this shift BATHING - SCORE: 0-UNK DRESSING - UPPER BODY: Activity did not occur on this shift ARTICLES SCORE Total number of steps: 0 DRESSING - UPPER BODY - SCORE: 0-UNK DRESSING - LOWER BODY: Activity did not occur on this shift ARTICLES SCORE Total number of steps: 0 DRESSING - LOWER BODY - SCORE: 0-UNK TOILETING: TOILETING - STEP 1: Does the patient require assistance with toileting? Yes. TOILETING - STEP 2: Does the patient require the assistance of a helper? Yes. TOILETING - STEP 3: How much assistance does the patient require from the helper? Hands-on assistance from the helper TOILETING - STEP 4: Of the 3 tasks: 1) Adjusting clothing prior to use, 2) Cleansing of perineal area, 3) Adjusting clot dinorah after use; How many tasks does the patient perform WITHOUT assistance of the helper? Three tasks with steadying assistance from the helper TOILETING - SCORE: 4-MIN BLADDER MANAGEMENT: Patient is on renal dialysis or peritoneal dialysis and no voiding activity BLADDER MANAGEMENT - SCORE: 7-IND BLADDER MANAGEMENT - FREQUENCY OF ACCIDENTS: BLADDER MANAGEMENT(FA) - STEP 1: How many accidents has the patient had during the current shift? 0 BOWEL MANAGEMENT: BOWEL MANAGEMENT - STEP 1: Does the patient control bowels completely and intentionally without equipment devices or medications AND is always continent? No. BOWEL MANAGEMENT - STEP 2: Does the patient require the assistance of a helper? No, patient requires medication for control such as stool softeners, suppositories, laxatives, enemas, or OTC medications BOWEL MANAGEMENT - SCORE: 6-SRAVANTHI BOWEL MANAGEMENT - FREQUENCY OF ACCIDENTS: BOWEL MANAGEMENT(FA) - STEP 1: How many accidents has the patient had during the current shift? 0 TRANSFERS: BED, CHAIR, WHEELCHAIR: TRANSFERS: BED, CHAIR, WHEELCHAIR - STEP 1: Does the patient require assistance with bed, chair, or wheelchair transfers? Yes. TRANSFERS: BED, CHAIR, WHEELCHAIR - STEP 2: Does the patient require the assistance of a helper? Yes. TRANSFERS: BED, CHAIR, WHEELCHAIR - STEP 3: How much assistance does the patient require from the helper? Steadying/guiding assistance TRANSFERS: BED, CHAIR, WHEELCHAIR - SCORE: 4-MIN TRANSFERS: TOILET: TRANSFERS: TOILET - STEP 1: Does the patient require assistance with toilet transfers? Yes. TRANSFERS: TOILET - STEP 2: Does the patient require the assistance of a helper? Yes. TRANSFERS: TOILET - STEP 3: How much assistance does the patient require from the helper? Only supervision, cuing, coaxing, OR he lp to set out transfer equipment or to lock brakes and/or lift foot rests TRANSFERS: TOILET - SCORE: 5-SUP TRANSFERS: SHOWER: Activity did not occur on this shift TRANSFERS: SHOWER - SCORE: 0-UNK TRANSFERS: TUB: Activity did not occur on this shift TRANSFERS: TUB - SCORE: 0-UNK LOCOMOTION: WALK: Activity did not occur on this shift LOCOMOTION: WALK - SCORE: 0-UNK LOCOMOTION: WHEELCHAIR: LOCOMOTION: WHEELCHAIR - STEP 1: Does the patient need help to go 150 feet in a wheelchair? Yes. LOCOMOTION: WHEELCHAIR - STEP 2: How much assistance does the patient need from the helper? Only supervision, cuing, or coaxing LOCOMOTION: WHEELCHAIR - SCORE: 5-SUP COMPREHENSION: COMPREHENSION: TYPE: Both COMPREHENSION - STEP 1: Does the patient require help to understand complex and abstract ideas (such as current events, finan caitlyn, discharge planning, medical issues, relationships, etc)? Yes. COMPREHENSION - STEP 2: Does the patient require help to understand questions or statements about basic needs or ideas (such as hunger, thirst, sleep, safety, daily schedule, room location, or discomfort) half or more of the t [place]? No. COMPREHENSION - STEP 3: How often does the patient need help to understand directions and conversation about basic needs? Les s than 10% of the time COMPREHENSION - SCORE: 5-SUP EXPRESSION EXPRESSION: TYPE: Both EXPRESSION - STEP 1: Does the patient require help expressing complex and abstract ideas (such as current events, finances , discharge planning, medical issues, relationships, etc)? Yes. EXPRESSION - STEP 2: Does the patient require help to express basic necessities or ideas (such as hunger, thirst, sleep, s afety, daily schedule, room location, or discomfort) half or more of the time? No. EXPRESSION - STEP 3: How often does the patient need help to express directions and conversation about basic needs? Less t chahal 10% of the time EXPRESSION - SCORE: 5-SUP SOCIAL INTERACTION: SOCIAL INTERACTION - STEP 1: Does the patient require a helper to interact with others in social and therapeutic situations? Yes. SOCIAL INTERACTION - STEP 2: Does the patient interact appropriately half or more of the time? Yes. SOCIAL INTERACTION - STEP 3: How often does the patient need help to interact appropriately? Less than 10% of the time SOCIAL INTERACTION - SCORE: 5-SUP PROBLEM SOLVING: PROBLEM SOLVING - STEP 1: Does the patient need help to solve complex problems such as managing a checking account or confronti ng interpersonal problems? Yes. PROBLEM SOLVING - STEP 2: Does the patient solve basic routine problems half or more of the time? Yes. PROBLEM SOLVING - STEP 3: How often does the patient need help to solve basic routine problems? Less than 10% of the time PROBLEM SOLVING - SCORE: 5-SUP MEMORY: MEMORY - STEP 1: Does the patient need help to remember frequently encountered people, daily routines, and executing r equests? Yes. MEMORY - STEP 2: How often does the patient need help to remember frequently encountered people, daily routines, and e xecuting requests? Less than 10% of the time MEMORY - SCORE: 5-SUP SIGNATURE PANEL: The following modified sections: Eating - Score, Grooming - Score, Bathing - Score, Dressing - Upper Body - Score, Dressing - Lower Body - Score, Toileting - Score, Bladder Management - Score, Bowel Man agement - Score, Transfers: Bed, Chair, Wheelchair - Score, Transfers: Toilet - Score, Transfers: Susie wer - Score, Transfers: Tub - Score, Locomotion: Walk - Score, Locomotion: Wheelchair - Score, Compre hension - Score, Expression - Score, Social Interaction - Score, Problem Solving - Score, Memory - Sc ore were [electronically] signed by Meli Roque RN on MonJan 16 2018 12:36:25 GMT-0500 (Central Day ight Time)
--- NOTE | 2018-01-16 18:54 | R.PN ---
ENCOUNTER DATE AND TIME: 01/16/2018 17:52 (CDT) NAME MARIBEL MIJARES DATE OF : 1965 DATE OF ADMISSION: 01/13/2018 05:31 (CDT) Bilateral BKACHIEF COMPLAINT: Bilateral below the knee amputations. SUBJECTIVE: Pt denied any Shortness of Breath. Pt denied any depression. Bed mobility done with modified independence. Ambulated 260' with contact guard assistance using a rolling walker. Propelled wheelchair 250' with s tandby assistance. Speech expression and comprehension is at modified independence. Toilet and tub tr ansfer with modified independence. VITAL SIGNS Temperature: 99.2 F SBP/DBP: 154/79 Pulse: 73 Resp: 16 Vital signs stable, afebrile MEDICATION ALLERGIES: CLINDAMYCIN ENVIRONMENTAL ALLERGIES: None Known - Substance Allergies None Known - Other Allergies None Known CONSULT: Perform Consult Certified Prosthetic for prosthesis construction NURSING: - Shower allowing shower - Lab Results blood Sugar Check ACHS - Skin care per protocol PRECAUTIONS: - Fall Precaution Bed and chair alarm ACTIVITIES OOB only with supervision THERAPIES: - Orthotics/Prosthetics Prosthetic Evaluation. - Occupational Therapy Evaluate and Treat. - Physical Therapy Evaluate and Treat. PHYSICAL EXAM - Gen Alert and awake Lying in bed No apparent distress Oriented to: person, time, and place - Skin left lower extremity incisions intact Normacephalic - Eyes No abnormalities - ENMT No abnormalities - Neck No abnormalities - CVS RRR - Chest Clear - Resp Clear to auscultation - Abd Soft - GI Non distended Deferred - No abnormalities - Ext No significant edema. - MSK No Stiffness - Neuro Incoordination and left leg weakness. - Psych No abnormalities ASSESSMENT: Pt. is a 52 yo Right-handed male.On 12/26/2017 he was admitted to [facility] with diagnosis Bilateral BKA.His impairment category is Amputation of Limb 05 - Bilateral Low er Limb Below the Knee (BK/BK) (05.7).Pre-morbidly, Pt. was independent/mod-I in Sphincter Control, T ransfers Control, Communication, Social Cognition, Self-Care, and Locomotion; and he had good Sphinct er Control.Currently, he has deficits of Safety Awareness, Transfers Control, Balance, Locomotion, En durance, and Self-Care.Pt. is now referred to [facility] for acute in-patient rehabilitation in order to maximize patient's functional independence in activities of daily living, strength, ROM, and mobility.- Rehab Goal Patient has realistic goal of being discharged at assistance level 6-Sharon to reside at Home with Fam jacqueline/Relatives. MDM/PLAN: - Diet Type Continue Regular - Physical Therapy Gait dysfunction - to improve, our physical therapists will perform initial evaluation of pt's statu s upon admission and devise an individualized program for Gait Training, and Wheel Chair mobility Inability to transfer - to improve, our physical therapists will perform initial evaluation of pt's status upon admission and devise an individualized program for Bed mobility Need for home safety evaluation - to improve, our physical therapists will perform initial evaluatio n of pt's status upon admission and devise an individualized program for Home Evaluation Need in caregiver upon discharge - to improve, our physical therapists will perform initial evaluati on of pt's status upon admission and devise an individualized program for Caregiver Training New precaution - to improve, our physical therapists will perform initial evaluation of pt's status upon admission and devise an individualized program for Patient precaution education Edema - to improve, our physical therapists will perform initial evaluation of pt's status upon admis [place] and devise an individualized program for Elevation Training, and Lymphedema Therapy Poor balance - to improve, our physical therapists will perform initial evaluation of pt's status up on admission and devise an individualized program for Balance Training Poor endurance - to improve, our physical therapists will perform initial evaluation of pt's status upon admission and devise an individualized program for Endurance Training Weakness - to improve, our physical therapists will perform initial evaluation of pt's status upon a dmission and devise an individualized program for Aquatic Therapy, Neuromuscular Reeducation, and Str engthening Achieving independence - to improve, our physical therapists will perform initial evaluation of pt's status upon admission and devise an individualized program for Community Reintegration Activities - Diet - Liquid Texture Continue Regular - Tube Feed Continue N/A - Lab Results blood Sugar Check ACHS - Weight Bearing Precaution TTWB left LE - Fall Precaution Bed and chair alarm - Skin care per protocol - N/A Perform Consult Certified Prosthetic for prosthesis construction - Diet - Solid Texture Continue Regular - Shower allowing shower - Occupational Therapy ADL deficits - to improve, our occupation therapists will perform initial evaluation of pt's status upon admission and devise an individualized program for Bathing, Bed mobility, Community Reintegratio n, Cooking, Dressing, Eating, Fine Motor Skills, Grooming, Homemaking, Kitchen Mobility, Laundry, Pat ient Education, Safety Awareness, Splinting - Positioning, Transfers(Toilet, Tub, Shower), and Wheel Chair Management Need for senior resident care director - to improve, our occupation therapists will perform initial evaluation of pt's status upon admission and devise an individualized program for Caregiver Training Weakness - to improve, our occupation therapists will perform initial evaluation of pt's status upon admission and devise an individualized program for Aquatic Therapy, Balance, Endurance, UE ROM, and UE strengthening FUNCTIONAL STATUS: UPDATED AT WEEKLY TEAM CONFERENCE - Bladder Same accident frequency: 7-Ind - No accidents in the past 7 days - Bowel Same accident frequency: 7-Ind - No accidents in the past 7 days - Walking Same score based on distance walked: 0(N/A) - Wheelchair Same score based on distance traveled: 0(N/A) FUNCTIONAL STATUS: - Self-Care A. Eating Ind B. Grooming Ind C. Bathing sup D. Dressing - Upper sup E. Dressing - Lower Vinny F. Toileting Vinny - Sphincter Control G: Bladder control Ind H: Bowel control Ind - Transfers Control I. Bed/Chair/Wheelchair Vinny J. Toilet Vinny K. Tub/Shower ADNO - Locomotion L. Walk/Wheelchair (C) Vinny L. Walk/Wheelchair (W) Vinny M. Stairs ADNO - Communication N. Comprehension (B) Sharon O. Expression (B) Sharon - Social Cognition P. Social Interaction Sharon Q. Problem Solving Sharon R. Memory Sharon - Endurance Fair - Balance Fair - Safety Awareness Fair [facility] DEFICITS: Safety Awareness, Transfers Control, Balance, Locomotion, Endurance, and Self-Care SIGNATURE PANEL: (CDT)
[2018-01-16] MEDS: RANITIDINE 150 MG TABLET PO SCH (20:51)
[2018-01-16] MEDS: HYDROCORTISONE 1 % CREAM 30GM TOP PRN (20:56)
--- NOTE | 2018-01-17 02:34 | FAST ---
SHIFT START DATE/TIME: 01/16/2018 19:00 (CDT) SHIFT END DATE/TIME: 01/17/2018 07:00 (CDT) NAME MARIBEL MIJARES DATE OF : 1965 DATE OF ADMISSION: 01/13/2018 05:31 (CDT) PHONE: AGE: 52 N# [id number] GENDER: Male ENCOUNTER PHYSICIAN: Dr. Cameron Malcolm M.D. ADMISSION DIAGNOSIS: - Amputation of Limb 05 - Bilateral Lower Limb Below the Knee (BK/BK) (05.7) Bilateral BKA. EATING: Activity did not occur on this shift EATING - SCORE: 0-UNK GROOMING: Activity did not occur on this shift GROOMING - SCORE: 0-UNK BATHING: Activity did not occur on this shift BATHING - SCORE: 0-UNK DRESSING - UPPER BODY: Patient is not dressing in public clothing ARTICLES SCORE Total number of steps: 0 DRESSING - UPPER BODY - SCORE: 0-UNK DRESSING - LOWER BODY: Patient is not dressing in public clothing ARTICLES SCORE Total number of steps: 0 DRESSING - LOWER BODY - SCORE: 0-UNK TOILETING: Activity did not occur on this shift TOILETING - SCORE: 0-UNK BLADDER MANAGEMENT: Patient is on renal dialysis or peritoneal dialysis and no voiding activity BLADDER MANAGEMENT - SCORE: 7-IND BOWEL MANAGEMENT: Activity did not occur on this shift BOWEL MANAGEMENT - SCORE: 7-IND TRANSFERS: BED, CHAIR, WHEELCHAIR: Activity did not occur on this shift TRANSFERS: BED, CHAIR, WHEELCHAIR - SCORE: 0-UNK TRANSFERS: TOILET: Activity did not occur on this shift TRANSFERS: TOILET - SCORE: 0-UNK TRANSFERS: SHOWER: Activity did not occur on this shift TRANSFERS: SHOWER - SCORE: 0-UNK TRANSFERS: TUB: Activity did not occur on this shift TRANSFERS: TUB - SCORE: 0-UNK LOCOMOTION: WALK: Activity did not occur on this shift LOCOMOTION: WALK - SCORE: 0-UNK LOCOMOTION: WHEELCHAIR: Activity did not occur on this shift LOCOMOTION: WHEELCHAIR - SCORE: 0-UNK COMPREHENSION: COMPREHENSION - STEP 1: Does the patient require help to understand complex and abstract ideas (such as current events, finan caitlyn, discharge planning, medical issues, relationships, etc)? Yes. COMPREHENSION - STEP 2: Does the patient require help to understand questions or statements about basic needs or ideas (such as hunger, thirst, sleep, safety, daily schedule, room location, or discomfort) half or more of the t [place]? No. COMPREHENSION - STEP 3: How often does the patient need help to understand directions and conversation about basic needs? 10% - 24% of the time COMPREHENSION - SCORE: 4-MIN EXPRESSION EXPRESSION - STEP 1: Does the patient require help expressing complex and abstract ideas (such as current events, finances , discharge planning, medical issues, relationships, etc)? No. EXPRESSION - STEP 2: Does the patient need extra time, require an assistive device (such as augmentive communication syste m or a communication board), OR does s/he have mild difficulty expressing complex and abstract ideas (including mild dysarthria or mild word-find problems)? Yes. EXPRESSION - SCORE: 6-SARVANTHI SOCIAL INTERACTION: SOCIAL INTERACTION - STEP 1: Does the patient require a helper to interact with others in social and therapeutic situations? No. SOCIAL INTERACTION - STEP 2: Does the patient need extra time in social situations, OR does s/he interact with staff, other patien ts, and family members ONLY in structured environments, OR does s/he require medication for social in teraction? No. SOCIAL INTERACTION - SCORE: 7-IND PROBLEM SOLVING: PROBLEM SOLVING - STEP 1: Does the patient need help to solve complex problems such as managing a checking account or confronti ng interpersonal problems? Yes. PROBLEM SOLVING - STEP 2: Does the patient solve basic routine problems half or more of the time? Yes. PROBLEM SOLVING - STEP 3: How often does the patient need help to solve basic routine problems? 10%-24% of the time PROBLEM SOLVING - SCORE: 4-MIN MEMORY: MEMORY - STEP 1: Does the patient need help to remember frequently encountered people, daily routines, and executing r equests? No. MEMORY - STEP 2: Does the patient have slight difficulty recognizing frequently encountered people, daily routines, or executing requests without the need for repetition or using self-initiated or environmental cues to remember? Yes. MEMORY - SCORE: 6-SRAVANTHI SIGNATURE PANEL: The following modified sections: Eating - Score, Grooming - Score, Dressing - Upper Body - Score, Rubens ssing - Lower Body - Score, Toileting - Score, Bladder Management - Score, Bowel Management - Score, Transfers: Bed, Chair, Wheelchair - Score, Transfers: Toilet - Score, Transfers: Shower - Score, Ash sfers: Tub - Score, Locomotion: Walk - Score, Locomotion: Wheelchair - Score, Comprehension - Score, Expression - Score, Social Interaction - Score, Problem Solving - Score, Memory - Score were [electro nically] signed by Charito Mathur CNA on MonJan 17 2018 01:34:36 GMT-0500 (Central Daylight Time)
[2018-01-17] MEDS: hydrOXYzine HCl 25 MG TAB PO PRN (02:59)
[2018-01-17] MEDS: METOPROLOL TAR 25 MG TAB PO SCH (05:30)
[2018-01-17 06:40] LABS: Absolute Lymphocytes (CBC) 0.5 K/uL (0.7-4.9); Absolute Monocytes 0.4 K/uL (0.1-1.3); Absolute Neutrophil 5.5 K/uL (1.8-8.0); Basophils % 1.9 % (0-1.3); Eosinophils % 6.7 % (0-4.4); Hematocrit 34.5 % (39.6-49.0); Lymphocytes % 7.5 % (15.3-44.8); MCH 28.9 pg (27.0-35.0); MCV 89.2 fL (80-100); MPV 11.1 fL (7.6-11.3); Monocytes % 6.3 % (3.3-12.3); RBC Red Blood Cell Count 3.87 M/uL (4.33-5.43)
[2018-01-17 07:17] LABS: Potassium 3.9 mmol/L (3.5-5.1); Prealbumin 15.1 mg/dL (20-40)
[2018-01-17] MEDS: INSULIN -REGULAR HUMAN 50 UNIT/0.5 ML ML SQ SCH ×4 (07:30→20:20)
[2018-01-17] MEDS: COLLAGENASE 30 GM OINTMENT TOP SCH ×2 (08:00→19:50)
[2018-01-17] MEDS: JUVEN PACKET PO SCH ×2 (08:00→19:50)
[2018-01-17] MEDS: PROMOD 30 ML DOSE PO SCH ×2 (08:00→19:50)
[2018-01-17] MEDS: FE SULF/FA/VIT B COMP & C TAB PO SCH (09:48)
[2018-01-17] MEDS: FERROUS SULFATE 325 MG TAB PO SCH (09:48)
[2018-01-17] MEDS: SEVELAMER CARBONATE 800 MG TABLET PO SCH ×3 (09:48→16:20)
[2018-01-17] MEDS: HEPARIN 5000 UNIT/ML 1 ML VIAL SQ SCH ×2 (09:48→20:00)
[2018-01-17] MEDS: FUROSEMIDE 40 MG TABLET PO SCH (09:49)
[2018-01-17] MEDS: CLOPIDOGREL 75 MG TABLET PO SCH (09:49)
[2018-01-17] MEDS: HYDROCODONE/APAP 5/325 MG TAB PO PRN ×2 (09:49→16:21)
[2018-01-17] MEDS: LISINOPRIL 10 MG TAB PO SCH ×2 (09:49→19:49)
--- NOTE | 2018-01-17 10:04 | P.RH.PN ---
Estimated Length of Stay: 16 Expected Discharge Date: 01/28/18 Discharge Disposition Plan: Home Family Support: Yes Vital Signs: Last Vital Signs Temp 96.5 F L 01/17/18 09:31 Pulse 75 01/17/18 09:49 Resp 18 01/17/18 09:31 BP 186/101 H 01/17/18 09:49 Pulse Ox 98 01/17/18 09:31 Laboratory: Laboratory Last Values WBC 7.1 K/uL (4.3-10.9) D 01/17/18 05:48 RBC 3.87 M/uL (4.33-5.43) L 01/17/18 05:48 Hgb 11.2 g/dL (13.6-17.9) L 01/17/18 05:48 Hct 34.5 % (39.6-49.0) L 01/17/18 05:48 MCV 89.2 fL (80-100) 01/17/18 05:48 MCH 28.9 pg (27.0-35.0) 01/17/18 05:48 MCHC 32.4 g/dL (32.0-36.0) 01/17/18 05:48 RDW 19.6 % (12.1-15.2) H 01/17/18 05:48 Plt Count 145 K/uL (152-406) L 01/17/18 05:48 MPV 11.1 fL (7.6-11.3) 01/17/18 05:48 Neutrophils % 77.6 % (41.7-73.7) H 01/17/18 05:48 Lymphocytes % 7.5 % (15.3-44.8) L 01/17/18 05:48 Monocytes % 6.3 % (3.3-12.3) 01/17/18 05:48 Eosinophils % 6.7 % (0-4.4) H 01/17/18 05:48 Basophils % 1.9 % (0-1.3) H 01/17/18 05:48 Absolute Neutrophils 5.5 K/uL (1.8-8.0) 01/17/18 05:48 Absolute Lymphocytes 0.5 K/uL (0.7-4.9) L 01/17/18 05:48 Absolute Monocytes 0.4 K/uL (0.1-1.3) 01/17/18 05:48 Absolute Eosinophils 0.5 K/uL (0-0.5) 01/17/18 05:48 Absolute Basophils 0.1 K/uL (0-0.5) 01/17/18 05:48 Morphology Comment Not seen (NOT SEEN) 01/14/18 06:05 Sodium 139 mmol/L (136-145) 01/17/18 05:48 Potassium 3.9 mmol/L (3.5-5.1) 01/17/18 05:48 Chloride 102 mmol/L (98-107) 01/17/18 05:48 Carbon Dioxide 27 mmol/L (21-32) 01/17/18 05:48 BUN 52 mg/dL (7-18) H 01/17/18 05:48 Creatinine 6.70 mg/dL (0.55-1.3) H* 01/17/18 05:48 Estimated GFR 9 mL/min (=/>90) L 01/17/18 05:48 Glucose 130 mg/dL (74-106) H 01/17/18 05:48 POC Glucose 153 mg/dl (65-120) H 01/17/18 07:56 Calcium 9.0 mg/dL (8.5-10.1) 01/17/18 05:48 Magnesium 2.4 mg/dL (1.8-2.4) 01/14/18 06:05 Albumin 2.0 g/dL (3.4-5.0) L 01/17/18 05:48 Prealbumin 15.1 mg/dL (20-40) L 01/17/18 05:48 Vancomycin Trough 6.7 ug/mL (5.0-20.0) 01/15/18 18:55 Weight: 129 lb 8 oz Wound Present: Yes Closed Surgical Incision Present: Yes Negative Pressure Wound Therapy Present: No Physician Update: Dr. Mclaughlin d/patricia the wound vac for the right BKA. His Hgb is stable at 11.2. His antibiotics vanc and zosyn have been discontined. His is doing standy assistance with his sliding board and wheelchair mobilization and transfers. He is improving his upper body strength and endurance. Medication Issues: Lyirca discontinued Pain Issues: Fertile 5/325mg Q6H PRN. Tramadol 25mg Q6H PRN Functional Improvement Occupational Therapy: PATIENT DEMONSTRATING GOOD PARTICIPATION WITH THERAPY WELL SLOW STEADY PROGRESS SINCE RECENT ADMISSION, AND CONTINUES TO BENEFIT FROM FURTHER SKILLED OT SERVICES AT THIS TIME, BEFORE A SAFE D/C HOME WITH FAMILY. Summary: Patient's care plan and alf goals have been reviewed and revised as necessary. Please see the Rehabilitation Signature page for all necessary signatures.
[2018-01-17] MEDS: TRAMADOL HCL 50 MG TAB PO PRN ×2 (12:34→19:48)
--- NOTE | 2018-01-17 18:38 | FAST ---
SHIFT START DATE/TIME: 01/17/2018 07:00 (CDT) SHIFT END DATE/TIME: 01/17/2018 19:00 (CDT) NAME MARIBEL MIJARES DATE OF : 1965 DATE OF ADMISSION: 01/13/2018 05:31 (CDT) PHONE: AGE: 52 N# [id number] GENDER: Male ENCOUNTER PHYSICIAN: Dr. Cameron Malcolm M.D. ADMISSION DIAGNOSIS: - Amputation of Limb 05 - Bilateral Lower Limb Below the Knee (BK/BK) (05.7) Bilateral BKA. EATING: EATING - STEP 1: Does the patient require assistance when eating? No. EATING - SCORE: 7-IND GROOMING: Activity did not occur on this shift GROOMING - SCORE: 0-UNK BATHING: Activity did not occur on this shift BATHING - SCORE: 0-UNK DRESSING - UPPER BODY: Activity did not occur on this shift ARTICLES SCORE Total number of steps: 0 DRESSING - UPPER BODY - SCORE: 0-UNK DRESSING - LOWER BODY: Activity did not occur on this shift ARTICLES SCORE Total number of steps: 0 DRESSING - LOWER BODY - SCORE: 0-UNK TOILETING: Activity did not occur on this shift TOILETING - SCORE: 0-UNK BLADDER MANAGEMENT: BLADDER MANAGEMENT - STEP 1: Does the patient control the bladder completely and intentionally without equipment or devices or med ications, and is always continent? Yes. BLADDER MANAGEMENT - SCORE: 7-IND BLADDER MANAGEMENT - FREQUENCY OF ACCIDENTS: BLADDER MANAGEMENT(FA) - STEP 1: How many accidents has the patient had during the current shift? 0 BOWEL MANAGEMENT: BOWEL MANAGEMENT - STEP 1: Does the patient control bowels completely and intentionally without equipment devices or medications AND is always continent? Yes. BOWEL MANAGEMENT - SCORE: 7-IND BOWEL MANAGEMENT - FREQUENCY OF ACCIDENTS: BOWEL MANAGEMENT(FA) - STEP 1: How many accidents has the patient had during the current shift? 0 TRANSFERS: BED, CHAIR, WHEELCHAIR: TRANSFERS: BED, CHAIR, WHEELCHAIR - STEP 1: Does the patient require assistance with bed, chair, or wheelchair transfers? Yes. TRANSFERS: BED, CHAIR, WHEELCHAIR - STEP 2: Does the patient require the assistance of a helper? Yes. TRANSFERS: BED, CHAIR, WHEELCHAIR - STEP 3: How much assistance does the patient require from the helper? Steadying/guiding assistance TRANSFERS: BED, CHAIR, WHEELCHAIR - SCORE: 4-MIN TRANSFERS: TOILET: TRANSFERS: TOILET - STEP 1: Does the patient require assistance with toilet transfers? Yes. TRANSFERS: TOILET - STEP 2: Does the patient require the assistance of a helper? Yes. TRANSFERS: TOILET - STEP 3: How much assistance does the patient require from the helper? Patient performs half or more of the tr ansferring tasks TRANSFERS: TOILET - STEP 4: Does the patient need only incidental help such as contact guard or steadying during toilet transfer? Yes. TRANSFERS: TOILET - SCORE: 4-MIN TRANSFERS: SHOWER: Activity did not occur on this shift TRANSFERS: SHOWER - SCORE: 0-UNK TRANSFERS: TUB: Activity did not occur on this shift TRANSFERS: TUB - SCORE: 0-UNK LOCOMOTION: WALK: Activity did not occur on this shift LOCOMOTION: WALK - SCORE: 0-UNK LOCOMOTION: WHEELCHAIR: Activity did not occur on this shift LOCOMOTION: WHEELCHAIR - SCORE: 0-UNK COMPREHENSION: COMPREHENSION - SCORE: 0-UNK EXPRESSION EXPRESSION - SCORE: 0-UNK SOCIAL INTERACTION: SOCIAL INTERACTION - SCORE: 0-UNK PROBLEM SOLVING: PROBLEM SOLVING - SCORE: 0-UNK MEMORY: MEMORY - SCORE: 0-UNK SIGNATURE PANEL: The following modified sections: Eating - Score, Grooming - Score, Bathing - Score, Dressing - Upper Body - Score, Dressing - Lower Body - Score, Toileting - Score, Bladder Management - Score, Bowel Man agement - Score, Transfers: Bed, Chair, Wheelchair - Score, Transfers: Toilet - Score, Transfers: Susie wer - Score, Transfers: Tub - Score, Locomotion: Walk - Score, Locomotion: Wheelchair - Score, Compre hension - Score, Expression - Score, Social Interaction - Score, Problem Solving - Score, Memory - Sc ore were [electronically] signed by Karey Montgomery CNA on MonJan 17 2018 17:38:41 GMT-0500 (Centra l Daylight Time)
[2018-01-17] MEDS: HYDROCORTISONE 1 % CREAM 30GM TOP PRN (19:51)
[2018-01-17] MEDS: RANITIDINE 150 MG TABLET PO SCH (20:20)
--- NOTE | 2018-01-18 02:11 | PN ---
Date of Progress Note: 01/17/2018 Subjective: The patient doing well. Participating in physical therapy. Tolerating physical therapy . Objective: Vital Signs: When I saw the patient, the patient lying in bed, comfortable, not in any d istress. Vital Signs: Blood pressure of 172/92, pulse of 86, afebrile. Chest: Clear to auscultation. Heart: S1, S2. Systolic murmur. Abdomen: Soft, nontender. Extremities: Bilateral below-knee amputation. Laboratory Data: WBC 7.1, H and H 11.2/34.5, platelets 145. Sodium 139, potassium 3.9, bicarb 27, B UN 52, creatinine 6.7, calcium of 9. Medications: Current medications the patient on is include, 1.Heparin. 2.Plavix. 3.Epogen. 4.Lisinopril 20 b.i.d. 5.Metoprolol 25 b.i.d. 6.Renvela. 7.Lasix. 8.Hydrocodone. 9.Tramadol. Assessment And Plan: 1.End-stage renal disease, status post dialysis today. We will follow up blood pressure after dialy sis. 2.We will dialyze on 2 potassium bath and we will follow up. 3.Hypertension, uncontrolled. To follow up after dialysis. I am going to go ahead and increase his metoprolol to 50 mg. 4.Status post below-knee amputation, stable. We will follow up PT/OT. 5.Secondary hyperparathyroidism. Continue Renvela. ULYSSES/DONNA Voice ID: [id number] Report ID: [id number]
--- NOTE | 2018-01-18 03:25 | FAST ---
SHIFT START DATE/TIME: 01/17/2018 19:00 (CDT) SHIFT END DATE/TIME: 01/18/2018 07:00 (CDT) NAME MARIBEL MIJARES DATE OF : 1965 DATE OF ADMISSION: 01/13/2018 05:31 (CDT) PHONE: AGE: 52 N# [id number] GENDER: Male ENCOUNTER PHYSICIAN: Dr. Cameron Malcolm M.D. ADMISSION DIAGNOSIS: - Amputation of Limb 05 - Bilateral Lower Limb Below the Knee (BK/BK) (05.7) Bilateral BKA. EATING: Activity did not occur on this shift EATING - SCORE: 0-UNK GROOMING: Wash, rinse, and dry hands GROOMING - STEP 1: Does the patient require assistance when grooming? Yes. GROOMING - STEP 2: Does the patient require the assistance of a helper? Yes. GROOMING - STEP 3: How much assistance does the patient require from the helper? Cuing, coaxing, instructions, or encour agement for completion of grooming GROOMING - SCORE: 5-SUP BATHING: Activity did not occur on this shift BATHING - SCORE: 0-UNK DRESSING - UPPER BODY: Patient is not dressing in public clothing ARTICLES SCORE Total number of steps: 0 DRESSING - UPPER BODY - SCORE: 0-UNK DRESSING - LOWER BODY: Patient is not dressing in public clothing ARTICLES SCORE Total number of steps: 0 DRESSING - LOWER BODY - SCORE: 0-UNK TOILETING: Activity did not occur on this shift TOILETING - SCORE: 0-UNK BLADDER MANAGEMENT: Patient is on renal dialysis or peritoneal dialysis and no voiding activity BLADDER MANAGEMENT - SCORE: 7-IND BOWEL MANAGEMENT: Activity did not occur on this shift BOWEL MANAGEMENT - SCORE: 7-IND TRANSFERS: BED, CHAIR, WHEELCHAIR: Activity did not occur on this shift TRANSFERS: BED, CHAIR, WHEELCHAIR - SCORE: 0-UNK TRANSFERS: TOILET: Activity did not occur on this shift TRANSFERS: TOILET - SCORE: 0-UNK TRANSFERS: SHOWER: Activity did not occur on this shift TRANSFERS: SHOWER - SCORE: 0-UNK TRANSFERS: TUB: Activity did not occur on this shift TRANSFERS: TUB - SCORE: 0-UNK LOCOMOTION: WALK: Activity did not occur on this shift LOCOMOTION: WALK - SCORE: 0-UNK LOCOMOTION: WHEELCHAIR: Activity did not occur on this shift LOCOMOTION: WHEELCHAIR - SCORE: 0-UNK COMPREHENSION: COMPREHENSION - STEP 1: Does the patient require help to understand complex and abstract ideas (such as current events, finan caitlyn, discharge planning, medical issues, relationships, etc)? Yes. COMPREHENSION - STEP 2: Does the patient require help to understand questions or statements about basic needs or ideas (such as hunger, thirst, sleep, safety, daily schedule, room location, or discomfort) half or more of the t [place]? No. COMPREHENSION - STEP 3: How often does the patient need help to understand directions and conversation about basic needs? 10% - 24% of the time COMPREHENSION - SCORE: 4-MIN EXPRESSION EXPRESSION - STEP 1: Does the patient require help expressing complex and abstract ideas (such as current events, finances , discharge planning, medical issues, relationships, etc)? Yes. EXPRESSION - STEP 2: Does the patient require help to express basic necessities or ideas (such as hunger, thirst, sleep, s afety, daily schedule, room location, or discomfort) half or more of the time? No. EXPRESSION - STEP 3: How often does the patient need help to express directions and conversation about basic needs? 10-24% of the time EXPRESSION - SCORE: 4-MIN SOCIAL INTERACTION: SOCIAL INTERACTION - STEP 1: Does the patient require a helper to interact with others in social and therapeutic situations? No. SOCIAL INTERACTION - STEP 2: Does the patient need extra time in social situations, OR does s/he interact with staff, other patien ts, and family members ONLY in structured environments, OR does s/he require medication for social in teraction? Yes, patient needs extra time SOCIAL INTERACTION - SCORE: 6-SRAVANTHI PROBLEM SOLVING: PROBLEM SOLVING - STEP 1: Does the patient need help to solve complex problems such as managing a checking account or confronti ng interpersonal problems? Yes. PROBLEM SOLVING - STEP 2: Does the patient solve basic routine problems half or more of the time? Yes. PROBLEM SOLVING - STEP 3: How often does the patient need help to solve basic routine problems? 10%-24% of the time PROBLEM SOLVING - SCORE: 4-MIN MEMORY: MEMORY - STEP 1: Does the patient need help to remember frequently encountered people, daily routines, and executing r equests? No. MEMORY - STEP 2: Does the patient have slight difficulty recognizing frequently encountered people, daily routines, or executing requests without the need for repetition or using self-initiated or environmental cues to remember? Yes. MEMORY - SCORE: 6-SRAVANTHI SIGNATURE PANEL: The following modified sections: Eating - Score, Grooming - Score, Dressing - Upper Body - Score, Rubens ssing - Lower Body - Score, Toileting - Score, Bladder Management - Score, Bowel Management - Score, Transfers: Bed, Chair, Wheelchair - Score, Transfers: Toilet - Score, Transfers: Shower - Score, Ash sfers: Tub - Score, Locomotion: Walk - Score, Locomotion: Wheelchair - Score, Comprehension - Score, Expression - Score, Social Interaction - Score, Problem Solving - Score, Memory - Score were [electro nically] signed by Charito Mathur CNA on MonJan 18 2018 02:25:45 GMT-0500 (Central Daylight Time)
[2018-01-18] MEDS: HYDROCODONE/APAP 5/325 MG TAB PO PRN ×2 (05:10→12:01)
[2018-01-18] MEDS: METOPROLOL TAR 25 MG TAB PO SCH (05:39)
[2018-01-18] MEDS: INSULIN -REGULAR HUMAN 50 UNIT/0.5 ML ML SQ SCH ×4 (07:05→20:17)
[2018-01-18] MEDS: COLLAGENASE 30 GM OINTMENT TOP SCH ×2 (07:08→19:36)
[2018-01-18] MEDS: HYDROCORTISONE 1 % CREAM 30GM TOP PRN (07:11)
[2018-01-18] MEDS: ASCORBIC ACID 500 MG TABLET PO SCH (07:50)
[2018-01-18] MEDS: SEVELAMER CARBONATE 800 MG TABLET PO SCH ×3 (07:50→17:01)
[2018-01-18] MEDS: CYANOCOBALAMIN 1,000 MCG TAB PO SCH (07:51)
[2018-01-18] MEDS: FERROUS SULFATE 325 MG TAB PO SCH (07:51)
[2018-01-18] MEDS: TRAMADOL HCL 50 MG TAB PO PRN (07:51)
[2018-01-18] MEDS: CLOPIDOGREL 75 MG TABLET PO SCH (07:51)
[2018-01-18] MEDS: FE SULF/FA/VIT B COMP & C TAB PO SCH (07:51)
[2018-01-18] MEDS: LISINOPRIL 10 MG TAB PO SCH ×2 (07:52→19:36)
[2018-01-18] MEDS: FUROSEMIDE 40 MG TABLET PO SCH (07:52)
[2018-01-18] MEDS: PROMOD 30 ML DOSE PO SCH ×2 (07:52→19:36)
[2018-01-18] MEDS: JUVEN PACKET PO SCH ×2 (07:52→19:36)
[2018-01-18] MEDS: HEPARIN 5000 UNIT/ML 1 ML VIAL SQ SCH ×2 (08:20→19:00)
--- NOTE | 2018-01-18 11:36 | FAST ---
SHIFT START DATE/TIME: 01/18/2018 07:00 (CDT) SHIFT END DATE/TIME: 01/18/2018 19:00 (CDT) NAME MARIBEL MIJARES DATE OF : 1965 DATE OF ADMISSION: 01/13/2018 05:31 (CDT) PHONE: AGE: 52 N# [id number] GENDER: Male ENCOUNTER PHYSICIAN: Dr. Cameron Malcolm M.D. ADMISSION DIAGNOSIS: - Amputation of Limb 05 - Bilateral Lower Limb Below the Knee (BK/BK) (05.7) Bilateral BKA. EATING: EATING - STEP 1: Does the patient require assistance when eating? No. EATING - SCORE: 7-IND GROOMING: Activity did not occur on this shift GROOMING - SCORE: 0-UNK BATHING: Activity did not occur on this shift BATHING - SCORE: 0-UNK DRESSING - UPPER BODY: Activity did not occur on this shift ARTICLES SCORE Total number of steps: 0 DRESSING - UPPER BODY - SCORE: 0-UNK DRESSING - LOWER BODY: Activity did not occur on this shift ARTICLES SCORE Total number of steps: 0 DRESSING - LOWER BODY - SCORE: 0-UNK TOILETING: TOILETING - STEP 1: Does the patient require assistance with toileting? No. TOILETING - SCORE: 7-IND BLADDER MANAGEMENT: Patient is on renal dialysis or peritoneal dialysis and no voiding activity BLADDER MANAGEMENT - SCORE: 7-IND BLADDER MANAGEMENT - FREQUENCY OF ACCIDENTS: BLADDER MANAGEMENT(FA) - STEP 1: How many accidents has the patient had during the current shift? 0 BOWEL MANAGEMENT: BOWEL MANAGEMENT - STEP 1: Does the patient control bowels completely and intentionally without equipment devices or medications AND is always continent? Yes. BOWEL MANAGEMENT - SCORE: 7-IND BOWEL MANAGEMENT - FREQUENCY OF ACCIDENTS: BOWEL MANAGEMENT(FA) - STEP 1: How many accidents has the patient had during the current shift? 0 TRANSFERS: BED, CHAIR, WHEELCHAIR: TRANSFERS: BED, CHAIR, WHEELCHAIR - STEP 1: Does the patient require assistance with bed, chair, or wheelchair transfers? Yes. TRANSFERS: BED, CHAIR, WHEELCHAIR - STEP 2: Does the patient require the assistance of a helper? Yes. TRANSFERS: BED, CHAIR, WHEELCHAIR - STEP 3: How much assistance does the patient require from the helper? Only supervision TRANSFERS: BED, CHAIR, WHEELCHAIR - SCORE: 5-SUP TRANSFERS: TOILET: Activity did not occur on this shift TRANSFERS: TOILET - SCORE: 0-UNK TRANSFERS: SHOWER: Activity did not occur on this shift TRANSFERS: SHOWER - SCORE: 0-UNK TRANSFERS: TUB: Activity did not occur on this shift TRANSFERS: TUB - SCORE: 0-UNK LOCOMOTION: WALK: Activity did not occur on this shift LOCOMOTION: WALK - SCORE: 0-UNK LOCOMOTION: WHEELCHAIR: Activity did not occur on this shift LOCOMOTION: WHEELCHAIR - SCORE: 0-UNK COMPREHENSION: COMPREHENSION - SCORE: 0-UNK EXPRESSION EXPRESSION - SCORE: 0-UNK SOCIAL INTERACTION: SOCIAL INTERACTION - SCORE: 0-UNK PROBLEM SOLVING: PROBLEM SOLVING - SCORE: 0-UNK MEMORY: MEMORY - SCORE: 0-UNK SIGNATURE PANEL: The following modified sections: Eating - Score, Grooming - Score, Bathing - Score, Dressing - Upper Body - Score, Dressing - Lower Body - Score, Toileting - Score, Bladder Management - Score, Bowel Man agement - Score, Transfers: Bed, Chair, Wheelchair - Score, Transfers: Toilet - Score, Transfers: Susie wer - Score, Transfers: Tub - Score, Locomotion: Walk - Score, Locomotion: Wheelchair - Score, Compre hension - Score, Expression - Score, Social Interaction - Score, Problem Solving - Score, Memory - Sc ore were [electronically] signed by Karey Montgomery CNA on MonJan 18 2018 10:37:13 T-0500 (Centra l Daylight Time)
--- NOTE | 2018-01-18 15:49 | FAST ---
ENCOUNTER DATE AND TIME: 01/18/2018 08:00 (CDT) NAME MARIBEL MIJARES DATE OF : 1965 DATE OF ADMISSION: 01/13/2018 05:31 (CDT) PHONE: AGE: 52 SSN# [id number] GENDER: Male ENCOUNTER PHYSICIAN: Dr. Cameron Malcolm M.D. ADMISSION DIAGNOSIS: - Amputation of Limb 05 - Bilateral Lower Limb Below the Knee (BK/BK) (05.7) Bilateral BKA. EATING: Activity did not occur on this shift EATING - SCORE: 0-UNK GROOMING: Activity did not occur on this shift GROOMING - SCORE: 0-UNK BATHING: Activity did not occur on this shift BATHING - SCORE: 0-UNK DRESSING - UPPER BODY: Activity did not occur on this shift Patient is not dressing in public clothing ARTICLES SCORE Total number of steps: 0 DRESSING - UPPER BODY - SCORE: 0-UNK DRESSING - LOWER BODY: Activity did not occur on this shift Patient is not dressing in public clothing ARTICLES SCORE Total number of steps: 0 DRESSING - LOWER BODY - SCORE: 0-UNK TOILETING: Activity did not occur on this shift TOILETING - SCORE: 0-UNK BLADDER MANAGEMENT: Activity did not occur on this shift BLADDER MANAGEMENT - SCORE: 7-IND BOWEL MANAGEMENT: Activity did not occur on this shift BOWEL MANAGEMENT - SCORE: 7-IND TRANSFERS: BED, CHAIR, WHEELCHAIR: Activity did not occur on this shift TRANSFERS: BED, CHAIR, WHEELCHAIR - SCORE: 0-UNK TRANSFERS: TOILET: Activity did not occur on this shift TRANSFERS: TOILET - SCORE: 0-UNK TRANSFERS: SHOWER: Activity did not occur on this shift TRANSFERS: SHOWER - SCORE: 0-UNK TRANSFERS: TUB: Activity did not occur on this shift TRANSFERS: TUB - SCORE: 0-UNK LOCOMOTION: WALK: Activity did not occur on this shift LOCOMOTION: WALK - SCORE: 0-UNK LOCOMOTION: WHEELCHAIR: LOCOMOTION: WHEELCHAIR - STEP 1: Does the patient need help to go 150 feet in a wheelchair? No. LOCOMOTION: WHEELCHAIR - SCORE: 6-SRAVANTHI LOCOMOTION: STAIRS: Activity did not occur on this shift LOCOMOTION: STAIRS - SCORE: 0-UNK COMPREHENSION: COMPREHENSION - SCORE: 0-UNK EXPRESSION EXPRESSION - SCORE: 0-UNK SOCIAL INTERACTION: SOCIAL INTERACTION - SCORE: 0-UNK PROBLEM SOLVING: PROBLEM SOLVING - SCORE: 0-UNK MEMORY: MEMORY - SCORE: 0-UNK SIGNATURE PANEL: The following modified sections: Transfers: Bed, Chair, Wheelchair - Score, Transfers: Toilet - Score , Locomotion: Walk - Score, Locomotion: Wheelchair - Score, Locomotion: Stairs - Score were [electron ically] signed by Harvinder Sanchez PTA on MonJan 18 2018 15:48:45 GMT-0500 (Central Daylight Time)
--- NOTE | 2018-01-18 16:32 | FAST ---
ENCOUNTER DATE AND TIME: 01/17/2018 08:00 (CDT) NAME MARIBEL MIJARES DATE OF : 1965 DATE OF ADMISSION: 01/13/2018 05:31 (CDT) PHONE: AGE: 52 SSN# [id number] GENDER: Male ENCOUNTER PHYSICIAN: Dr. Cameron Malcolm M.D. ADMISSION DIAGNOSIS: - Amputation of Limb 05 - Bilateral Lower Limb Below the Knee (BK/BK) (05.7) Bilateral BKA. EATING: Activity did not occur on this shift EATING - SCORE: 0-UNK GROOMING: Activity did not occur on this shift GROOMING - SCORE: 0-UNK BATHING: Activity did not occur on this shift BATHING - SCORE: 0-UNK DRESSING - UPPER BODY: Activity did not occur on this shift Patient is not dressing in public clothing ARTICLES SCORE Total number of steps: 0 DRESSING - UPPER BODY - SCORE: 0-UNK DRESSING - LOWER BODY: Activity did not occur on this shift Patient is not dressing in public clothing ARTICLES SCORE Total number of steps: 0 DRESSING - LOWER BODY - SCORE: 0-UNK TOILETING: Activity did not occur on this shift TOILETING - SCORE: 0-UNK BLADDER MANAGEMENT: Activity did not occur on this shift BLADDER MANAGEMENT - SCORE: 7-IND BOWEL MANAGEMENT: Activity did not occur on this shift BOWEL MANAGEMENT - SCORE: 7-IND TRANSFERS: BED, CHAIR, WHEELCHAIR: TRANSFERS: BED, CHAIR, WHEELCHAIR - STEP 1: Does the patient require assistance with bed, chair, or wheelchair transfers? Yes. TRANSFERS: BED, CHAIR, WHEELCHAIR - STEP 2: Does the patient require the assistance of a helper? No. Patient only requires an assistive device fo r bed, chair, wheelchair transfers such as a sliding board, grab bar, or brace, OR s/he takes more th an reasonable time, OR there is a safety concern when s/he performs the transfers TRANSFERS: BED, CHAIR, WHEELCHAIR - SCORE: 6-SRAVANTHI TRANSFERS: TOILET: Activity did not occur on this shift TRANSFERS: TOILET - SCORE: 0-UNK TRANSFERS: SHOWER: Activity did not occur on this shift TRANSFERS: SHOWER - SCORE: 0-UNK TRANSFERS: TUB: Activity did not occur on this shift TRANSFERS: TUB - SCORE: 0-UNK LOCOMOTION: WALK: Activity did not occur on this shift LOCOMOTION: WALK - SCORE: 0-UNK LOCOMOTION: WHEELCHAIR: LOCOMOTION: WHEELCHAIR - STEP 1: Does the patient need help to go 150 feet in a wheelchair? No. LOCOMOTION: WHEELCHAIR - SCORE: 6-SRAVANTHI LOCOMOTION: STAIRS: Activity did not occur on this shift LOCOMOTION: STAIRS - SCORE: 0-UNK COMPREHENSION: COMPREHENSION - SCORE: 0-UNK EXPRESSION EXPRESSION - SCORE: 0-UNK SOCIAL INTERACTION: SOCIAL INTERACTION - SCORE: 0-UNK PROBLEM SOLVING: PROBLEM SOLVING - SCORE: 0-UNK MEMORY: MEMORY - SCORE: 0-UNK SIGNATURE PANEL: The following modified sections: Transfers: Bed, Chair, Wheelchair - Score, Transfers: Toilet - Score , Locomotion: Walk - Score, Locomotion: Wheelchair - Score, Locomotion: Stairs - Score were [electron reij] signed by Harvinder Sanchez PTA on MonJan 18 2018 16:31:50 GMT-0500 (Central Daylight Time)
--- NOTE | 2018-01-18 16:33 | FAST ---
ENCOUNTER DATE AND TIME: 01/16/2018 08:00 (CDT) NAME MARIBEL MIJARES DATE OF : 1965 DATE OF ADMISSION: 01/13/2018 05:31 (CDT) PHONE: AGE: 52 SSN# [id number] GENDER: Male ENCOUNTER PHYSICIAN: Dr. Cameron Malcolm M.D. ADMISSION DIAGNOSIS: - Amputation of Limb 05 - Bilateral Lower Limb Below the Knee (BK/BK) (05.7) Bilateral BKA. EATING: Activity did not occur on this shift EATING - SCORE: 0-UNK GROOMING: Activity did not occur on this shift GROOMING - SCORE: 0-UNK BATHING: Activity did not occur on this shift BATHING - SCORE: 0-UNK DRESSING - UPPER BODY: Activity did not occur on this shift Patient is not dressing in public clothing ARTICLES SCORE Total number of steps: 0 DRESSING - UPPER BODY - SCORE: 0-UNK DRESSING - LOWER BODY: Activity did not occur on this shift Patient is not dressing in public clothing ARTICLES SCORE Total number of steps: 0 DRESSING - LOWER BODY - SCORE: 0-UNK TOILETING: Activity did not occur on this shift TOILETING - SCORE: 0-UNK BLADDER MANAGEMENT: Activity did not occur on this shift BLADDER MANAGEMENT - SCORE: 7-IND BOWEL MANAGEMENT: Activity did not occur on this shift BOWEL MANAGEMENT - SCORE: 7-IND TRANSFERS: BED, CHAIR, WHEELCHAIR: TRANSFERS: BED, CHAIR, WHEELCHAIR - STEP 1: Does the patient require assistance with bed, chair, or wheelchair transfers? Yes. TRANSFERS: BED, CHAIR, WHEELCHAIR - STEP 2: Does the patient require the assistance of a helper? No. Patient only requires an assistive device fo r bed, chair, wheelchair transfers such as a sliding board, grab bar, or brace, OR s/he takes more th an reasonable time, OR there is a safety concern when s/he performs the transfers TRANSFERS: BED, CHAIR, WHEELCHAIR - SCORE: 6-SRAVANTHI TRANSFERS: TOILET: TRANSFERS: TOILET - STEP 1: Does the patient require assistance with toilet transfers? Yes. TRANSFERS: TOILET - STEP 2: Does the patient require the assistance of a helper? Yes. TRANSFERS: TOILET - STEP 3: How much assistance does the patient require from the helper? Only supervision, cuing, coaxing, OR he lp to set out transfer equipment or to lock brakes and/or lift foot rests TRANSFERS: TOILET - SCORE: 5-SUP TRANSFERS: SHOWER: Activity did not occur on this shift TRANSFERS: SHOWER - SCORE: 0-UNK TRANSFERS: TUB: Activity did not occur on this shift TRANSFERS: TUB - SCORE: 0-UNK LOCOMOTION: WALK: Activity did not occur on this shift LOCOMOTION: WALK - SCORE: 0-UNK LOCOMOTION: WHEELCHAIR: Activity did not occur on this shift LOCOMOTION: WHEELCHAIR - SCORE: 0-UNK LOCOMOTION: STAIRS: Activity did not occur on this shift LOCOMOTION: STAIRS - SCORE: 0-UNK COMPREHENSION: COMPREHENSION - SCORE: 0-UNK EXPRESSION EXPRESSION - SCORE: 0-UNK SOCIAL INTERACTION: SOCIAL INTERACTION - SCORE: 0-UNK PROBLEM SOLVING: PROBLEM SOLVING - SCORE: 0-UNK MEMORY: MEMORY - SCORE: 0-UNK SIGNATURE PANEL: The following modified sections: Transfers: Bed, Chair, Wheelchair - Score, Transfers: Toilet - Score , Locomotion: Walk - Score, Locomotion: Wheelchair - Score, Locomotion: Stairs - Score were [electron reji] signed by Harvinder Sanchez PTA on MonJan 18 2018 16:32:51 GMT-0500 (Central Daylight Time)
--- NOTE | 2018-01-18 16:34 | FAST ---
ENCOUNTER DATE AND TIME: 01/15/2018 08:00 (CDT) NAME MARIBEL MIJARES DATE OF : 1965 DATE OF ADMISSION: 01/13/2018 05:31 (CDT) PHONE: AGE: 52 N# [id number] GENDER: Male ENCOUNTER PHYSICIAN: Dr. Cameron Malcolm M.D. ADMISSION DIAGNOSIS: - Amputation of Limb 05 - Bilateral Lower Limb Below the Knee (BK/BK) (05.7) Bilateral BKA. EATING: Activity did not occur on this shift EATING - SCORE: 0-UNK GROOMING: Activity did not occur on this shift GROOMING - SCORE: 0-UNK BATHING: Activity did not occur on this shift BATHING - SCORE: 0-UNK DRESSING - UPPER BODY: Activity did not occur on this shift Patient is not dressing in public clothing ARTICLES SCORE Total number of steps: 0 DRESSING - UPPER BODY - SCORE: 0-UNK DRESSING - LOWER BODY: Activity did not occur on this shift Patient is not dressing in public clothing ARTICLES SCORE Total number of steps: 0 DRESSING - LOWER BODY - SCORE: 0-UNK TOILETING: Activity did not occur on this shift TOILETING - SCORE: 0-UNK BLADDER MANAGEMENT: Activity did not occur on this shift BLADDER MANAGEMENT - SCORE: 7-IND BOWEL MANAGEMENT: Activity did not occur on this shift BOWEL MANAGEMENT - SCORE: 7-IND TRANSFERS: BED, CHAIR, WHEELCHAIR: TRANSFERS: BED, CHAIR, WHEELCHAIR - STEP 1: Does the patient require assistance with bed, chair, or wheelchair transfers? Yes. TRANSFERS: BED, CHAIR, WHEELCHAIR - STEP 2: Does the patient require the assistance of a helper? Yes. TRANSFERS: BED, CHAIR, WHEELCHAIR - STEP 3: How much assistance does the patient require from the helper? Only supervision TRANSFERS: BED, CHAIR, WHEELCHAIR - SCORE: 5-SUP TRANSFERS: TOILET: TRANSFERS: TOILET - STEP 1: Does the patient require assistance with toilet transfers? Yes. TRANSFERS: TOILET - STEP 2: Does the patient require the assistance of a helper? Yes. TRANSFERS: TOILET - STEP 3: How much assistance does the patient require from the helper? Patient performs half or more of the tr ansferring tasks TRANSFERS: TOILET - STEP 4: Does the patient need only incidental help such as contact guard or steadying during toilet transfer? Yes. TRANSFERS: TOILET - SCORE: 4-MIN TRANSFERS: SHOWER: Activity did not occur on this shift TRANSFERS: SHOWER - SCORE: 0-UNK TRANSFERS: TUB: Activity did not occur on this shift TRANSFERS: TUB - SCORE: 0-UNK LOCOMOTION: WALK: Activity did not occur on this shift LOCOMOTION: WALK - SCORE: 0-UNK LOCOMOTION: WHEELCHAIR: LOCOMOTION: WHEELCHAIR - STEP 1: Does the patient need help to go 150 feet in a wheelchair? No. LOCOMOTION: WHEELCHAIR - SCORE: 6-SRAVANTHI LOCOMOTION: STAIRS: Activity did not occur on this shift LOCOMOTION: STAIRS - SCORE: 0-UNK COMPREHENSION: COMPREHENSION - SCORE: 0-UNK EXPRESSION EXPRESSION - SCORE: 0-UNK SOCIAL INTERACTION: SOCIAL INTERACTION - SCORE: 0-UNK PROBLEM SOLVING: PROBLEM SOLVING - SCORE: 0-UNK MEMORY: MEMORY - SCORE: 0-UNK SIGNATURE PANEL: The following modified sections: Transfers: Bed, Chair, Wheelchair - Score, Transfers: Toilet - Score , Locomotion: Walk - Score, Locomotion: Wheelchair - Score, Locomotion: Stairs - Score were [electron [email or web address]] signed by Harvinder Sanchez PTA on MonJan 18 2018 16:34:14 T-0500 (Central Daylight Time)
[2018-01-18] MEDS: hydrOXYzine HCl 25 MG TAB PO PRN (18:34)
[2018-01-18] MEDS: RANITIDINE 150 MG TABLET PO SCH (20:15)
--- NOTE | 2018-01-19 00:08 | PN ---
Date of Progress Note: 01/18/2018 Chief Complaint: End-stage renal disease, on dialysis. History Of Present Illness: The patient has multiple medical problems including history of recent BK A. He has severe peripheral vascular disease, nonhealing lower extremity wounds with osteomyelitis. The patient has been treated with dialysis 3 times per week. Today, he denies PND or orthopnea. Physical Examination: Lungs: Clear to auscultation bilaterally. Heart: S1, S2. Abdomen: Soft, benign, nontender. Extremities: Bilateral below knee amputation. Laboratory Data: Hemoglobin 11.2, potassium 3.9, sodium 139, bicarbonate 27, BUN 52, creatinine 6.7, calcium 9. Impression And Plan: 1.End-stage renal disease. The patient will have dialysis tomorrow. 2.The patient is tolerating ultrafiltration. Adjust ultrafiltration to current volemia status. 3.Hypertension, uncontrolled. The patient is on metoprolol and dose of metoprolol was increased rec ently. The patient will continue lisinopril 20 mg twice a day and metoprolol 50 mg twice a day. 4.Renal osteodystrophy. Continue Renvela and low-phosphorus diet. Adjust medication according to p hosphorus level. 5.Secondary hyperparathyroidism. Monitor phosphorus level and calcium level. EB/MODL Voice ID: [id number] Report ID: [id number]
--- NOTE | 2018-01-19 03:31 | FAST ---
SHIFT START DATE/TIME: 01/18/2018 19:00 (CDT) SHIFT END DATE/TIME: 01/19/2018 07:00 (CDT) NAME MARIBEL MIJARES DATE OF : 1965 DATE OF ADMISSION: 01/13/2018 05:31 (CDT) PHONE: AGE: 52 N# [id number] GENDER: Male ENCOUNTER PHYSICIAN: Dr. Cameron Malcolm M.D. ADMISSION DIAGNOSIS: - Amputation of Limb 05 - Bilateral Lower Limb Below the Knee (BK/BK) (05.7) Bilateral BKA. EATING: Activity did not occur on this shift EATING - SCORE: 0-UNK GROOMING: Activity did not occur on this shift GROOMING - SCORE: 0-UNK BATHING: Activity did not occur on this shift BATHING - SCORE: 0-UNK DRESSING - UPPER BODY: Activity did not occur on this shift ARTICLES SCORE Total number of steps: 0 DRESSING - UPPER BODY - SCORE: 0-UNK DRESSING - LOWER BODY: Activity did not occur on this shift ARTICLES SCORE Total number of steps: 0 DRESSING - LOWER BODY - SCORE: 0-UNK TOILETING: Activity did not occur on this shift TOILETING - SCORE: 0-UNK BLADDER MANAGEMENT: BLADDER MANAGEMENT - STEP 1: Does the patient control the bladder completely and intentionally without equipment or devices or med ications, and is always continent? Yes. BLADDER MANAGEMENT - SCORE: 7-IND BLADDER MANAGEMENT - FREQUENCY OF ACCIDENTS: BLADDER MANAGEMENT(FA) - STEP 1: How many accidents has the patient had during the current shift? 0 BOWEL MANAGEMENT: BOWEL MANAGEMENT - STEP 1: Does the patient control bowels completely and intentionally without equipment devices or medications AND is always continent? Yes. BOWEL MANAGEMENT - SCORE: 7-IND BOWEL MANAGEMENT - FREQUENCY OF ACCIDENTS: BOWEL MANAGEMENT(FA) - STEP 1: How many accidents has the patient had during the current shift? 0 TRANSFERS: BED, CHAIR, WHEELCHAIR: Activity did not occur on this shift TRANSFERS: BED, CHAIR, WHEELCHAIR - SCORE: 0-UNK TRANSFERS: TOILET: Activity did not occur on this shift TRANSFERS: TOILET - SCORE: 0-UNK TRANSFERS: SHOWER: Activity did not occur on this shift TRANSFERS: SHOWER - SCORE: 0-UNK TRANSFERS: TUB: Activity did not occur on this shift TRANSFERS: TUB - SCORE: 0-UNK LOCOMOTION: WALK: Activity did not occur on this shift LOCOMOTION: WALK - SCORE: 0-UNK LOCOMOTION: WHEELCHAIR: Activity did not occur on this shift LOCOMOTION: WHEELCHAIR - SCORE: 0-UNK COMPREHENSION: COMPREHENSION: TYPE: Both COMPREHENSION - STEP 1: Does the patient require help to understand complex and abstract ideas (such as current events, finan caitlyn, discharge planning, medical issues, relationships, etc)? Yes. COMPREHENSION - STEP 2: Does the patient require help to understand questions or statements about basic needs or ideas (such as hunger, thirst, sleep, safety, daily schedule, room location, or discomfort) half or more of the t [place]? Yes. COMPREHENSION - STEP 3: Is the patient basically able to understand and respond appropriately and consistently? Yes. COMPREHENSION - SCORE: 2-MAX EXPRESSION EXPRESSION: TYPE: Both EXPRESSION - STEP 1: Does the patient require help expressing complex and abstract ideas (such as current events, finances , discharge planning, medical issues, relationships, etc)? Yes. EXPRESSION - STEP 2: Does the patient require help to express basic necessities or ideas (such as hunger, thirst, sleep, s afety, daily schedule, room location, or discomfort) half or more of the time? Yes. EXPRESSION - STEP 3: Is the patient basically unable to express or does s/he express inappropriately or inconsistently massimo pite prompting? No. EXPRESSION - SCORE: 2-MAX SOCIAL INTERACTION: SOCIAL INTERACTION - STEP 1: Does the patient require a helper to interact with others in social and therapeutic situations? Yes. SOCIAL INTERACTION - STEP 2: Does the patient interact appropriately half or more of the time? Yes. SOCIAL INTERACTION - STEP 3: How often does the patient need help to interact appropriately? Less than 10% of the time SOCIAL INTERACTION - SCORE: 5-SUP PROBLEM SOLVING: PROBLEM SOLVING - STEP 1: Does the patient need help to solve complex problems such as managing a checking account or confronti ng interpersonal problems? Yes. PROBLEM SOLVING - STEP 2: Does the patient solve basic routine problems half or more of the time? Yes. PROBLEM SOLVING - STEP 3: How often does the patient need help to solve basic routine problems? Less than 10% of the time PROBLEM SOLVING - SCORE: 5-SUP MEMORY: MEMORY - STEP 1: Does the patient need help to remember frequently encountered people, daily routines, and executing r equests? Yes. MEMORY - STEP 2: How often does the patient need help to remember frequently encountered people, daily routines, and e xecuting requests? Less than 10% of the time MEMORY - SCORE: 5-SUP SIGNATURE PANEL: The following modified sections: Eating - Score, Grooming - Score, Bathing - Score, Dressing - Upper Body - Score, Dressing - Lower Body - Score, Toileting - Score, Bladder Management - Score, Bowel Man agement - Score, Transfers: Bed, Chair, Wheelchair - Score, Transfers: Toilet - Score, Transfers: Susie wer - Score, Transfers: Tub - Score, Locomotion: Walk - Score, Locomotion: Wheelchair - Score, Compre hension - Score, Expression - Score, Social Interaction - Score, Problem Solving - Score, Memory - Sc ore were [electronically] signed by Yolanda Gomez on MonJan 19 2018 03:30:32 GMT-0500 (Central Day light Time)
[2018-01-19] MEDS: METOPROLOL TAR 25 MG TAB PO SCH (05:11)
[2018-01-19] MEDS: HYDROCODONE/APAP 5/325 MG TAB PO PRN ×3 (05:12→22:27)
[2018-01-19] MEDS: hydrOXYzine HCl 25 MG TAB PO PRN (07:11)
[2018-01-19] MEDS: FUROSEMIDE 40 MG TABLET PO SCH (07:12)
[2018-01-19] MEDS: INSULIN -REGULAR HUMAN 50 UNIT/0.5 ML ML SQ SCH ×4 (07:30→20:18)
[2018-01-19] MEDS: COLLAGENASE 30 GM OINTMENT TOP SCH ×2 (08:00→20:00)
[2018-01-19] MEDS: HEPARIN 5000 UNIT/ML 1 ML VIAL SQ SCH ×2 (08:00→20:00)
[2018-01-19] MEDS: JUVEN PACKET PO SCH ×3 (08:00→20:17)
[2018-01-19] MEDS: PROMOD 30 ML DOSE PO SCH ×2 (08:00→20:00)
[2018-01-19] MEDS: ASCORBIC ACID 500 MG TABLET PO SCH (08:19)
[2018-01-19] MEDS: CLOPIDOGREL 75 MG TABLET PO SCH (08:19)
[2018-01-19] MEDS: CYANOCOBALAMIN 1,000 MCG TAB PO SCH (08:19)
[2018-01-19] MEDS: LISINOPRIL 10 MG TAB PO SCH ×2 (08:19→20:16)
[2018-01-19] MEDS: SEVELAMER CARBONATE 800 MG TABLET PO SCH ×3 (08:20→20:15)
[2018-01-19] MEDS: FERROUS SULFATE 325 MG TAB PO SCH (08:21)
[2018-01-19] MEDS: FE SULF/FA/VIT B COMP & C TAB PO SCH (08:21)
[2018-01-19] MEDS: TRAMADOL HCL 50 MG TAB PO PRN ×2 (11:36→20:12)
--- NOTE | 2018-01-19 14:29 | FAST ---
ENCOUNTER DATE AND TIME: 01/19/2018 08:00 (CDT) NAME MARIBEL MIJARES DATE OF : 1965 DATE OF ADMISSION: 01/13/2018 05:31 (CDT) PHONE: AGE: 52 SSN# [id number] GENDER: Male ENCOUNTER PHYSICIAN: Dr. Cameron Malcolm M.D. ADMISSION DIAGNOSIS: - Amputation of Limb 05 - Bilateral Lower Limb Below the Knee (BK/BK) (05.7) Bilateral BKA. EATING: Activity did not occur on this shift EATING - SCORE: 0-UNK GROOMING: Activity did not occur on this shift GROOMING - SCORE: 0-UNK BATHING: Activity did not occur on this shift BATHING - SCORE: 0-UNK DRESSING - UPPER BODY: Activity did not occur on this shift Patient is not dressing in public clothing ARTICLES SCORE Total number of steps: 0 DRESSING - UPPER BODY - SCORE: 0-UNK DRESSING - LOWER BODY: Activity did not occur on this shift Patient is not dressing in public clothing ARTICLES SCORE Total number of steps: 0 DRESSING - LOWER BODY - SCORE: 0-UNK TOILETING: Activity did not occur on this shift TOILETING - SCORE: 0-UNK BLADDER MANAGEMENT: Activity did not occur on this shift BLADDER MANAGEMENT - SCORE: 7-IND BOWEL MANAGEMENT: Activity did not occur on this shift BOWEL MANAGEMENT - SCORE: 7-IND TRANSFERS: BED, CHAIR, WHEELCHAIR: TRANSFERS: BED, CHAIR, WHEELCHAIR - STEP 1: Does the patient require assistance with bed, chair, or wheelchair transfers? Yes. TRANSFERS: BED, CHAIR, WHEELCHAIR - STEP 2: Does the patient require the assistance of a helper? No. Patient only requires an assistive device fo r bed, chair, wheelchair transfers such as a sliding board, grab bar, or brace, OR s/he takes more th an reasonable time, OR there is a safety concern when s/he performs the transfers TRANSFERS: BED, CHAIR, WHEELCHAIR - SCORE: 6-SRAVANTHI TRANSFERS: TOILET: Activity did not occur on this shift TRANSFERS: TOILET - SCORE: 0-UNK TRANSFERS: SHOWER: Activity did not occur on this shift TRANSFERS: SHOWER - SCORE: 0-UNK TRANSFERS: TUB: Activity did not occur on this shift TRANSFERS: TUB - SCORE: 0-UNK LOCOMOTION: WALK: Activity did not occur on this shift LOCOMOTION: WALK - SCORE: 0-UNK LOCOMOTION: WHEELCHAIR: LOCOMOTION: WHEELCHAIR - STEP 1: Does the patient need help to go 150 feet in a wheelchair? No. LOCOMOTION: WHEELCHAIR - SCORE: 6-SRAVANTHI LOCOMOTION: STAIRS: Activity did not occur on this shift LOCOMOTION: STAIRS - SCORE: 0-UNK COMPREHENSION: COMPREHENSION - SCORE: 0-UNK EXPRESSION EXPRESSION - SCORE: 0-UNK SOCIAL INTERACTION: SOCIAL INTERACTION - SCORE: 0-UNK PROBLEM SOLVING: PROBLEM SOLVING - SCORE: 0-UNK MEMORY: MEMORY - SCORE: 0-UNK SIGNATURE PANEL: The following modified sections: Transfers: Bed, Chair, Wheelchair - Score, Transfers: Toilet - Score , Locomotion: Walk - Score, Locomotion: Wheelchair - Score, Locomotion: Stairs - Score were [ryley mendoza] signed by Harvinder Sanchez PTA on MonJan 19 2018 14:28:26 GMT-0500 (Central Daylight Time)
--- NOTE | 2018-01-19 15:12 | FAST ---
ENCOUNTER DATE AND TIME: 01/19/2018 08:00 (CDT) NAME MARIBEL MIJARES DATE OF : 1965 DATE OF ADMISSION: 01/13/2018 05:31 (CDT) PHONE: AGE: 52 N# [id number] GENDER: Male ENCOUNTER PHYSICIAN: Dr. Cameron Malcolm M.D. ADMISSION DIAGNOSIS: - Amputation of Limb 05 - Bilateral Lower Limb Below the Knee (BK/BK) (05.7) Bilateral BKA. EATING: Activity did not occur on this shift EATING - SCORE: 0-UNK GROOMING: Comb/brush hair Wash, rinse, and dry face Wash, rinse, and dry hands GROOMING - STEP 1: Does the patient require assistance when grooming? No. GROOMING - SCORE: 7-IND BATHING: Abdomen Buttocks Chest Left arm Left upper leg Perineal area Right arm Right upper leg BATHING - STEP 1: Does the patient require assistance when bathing? Yes. BATHING - STEP 2: Does the patient require the assistance of a helper? Yes. BATHING - STEP 3: How much assistance does the patient require from the helper? Only supervision, cuing, coaxing, instr uctions, encouragement BATHING - SCORE: 5-SUP DRESSING - UPPER BODY: T-shirt/pullover shirt (four steps) ARTICLES SCORE Total number of steps: 4 DRESSING - UPPER BODY - STEP 1: Does the patient require help when dressing above the waist? No. DRESSING - UPPER BODY - SCORE: 7-IND DRESSING - LOWER BODY: Elastic waist pants (three steps) Underwear (three steps) ARTICLES SCORE Total number of steps: 6 DRESSING - LOWER BODY - STEP 1: Does the patient require help when dressing below the waist? Yes. DRESSING - LOWER BODY - STEP 2: Does the patient require the assistance of a helper? Yes. DRESSING - LOWER BODY - STEP 3: Does the helper touch the patient while dressing? No. DRESSING - LOWER BODY - SCORE: 5-SUP TOILETING: Activity did not occur on this shift TOILETING - SCORE: 0-UNK BLADDER MANAGEMENT: Activity did not occur on this shift BLADDER MANAGEMENT - SCORE: 7-IND BOWEL MANAGEMENT: Activity did not occur on this shift BOWEL MANAGEMENT - SCORE: 7-IND TRANSFERS: BED, CHAIR, WHEELCHAIR: Activity did not occur on this shift TRANSFERS: BED, CHAIR, WHEELCHAIR - SCORE: 0-UNK TRANSFERS: TOILET: Activity did not occur on this shift TRANSFERS: TOILET - SCORE: 0-UNK TRANSFERS: SHOWER: Activity did not occur on this shift TRANSFERS: SHOWER - SCORE: 0-UNK TRANSFERS: TUB: TRANSFERS: TUB - STEP 1: Does the patient require assistance with tub transfers? Yes. TRANSFERS: TUB - STEP 2: Does the patient require the assistance of a helper? Yes. TRANSFERS: TUB - STEP 3: How much assistance does the patient require from the helper? Only supervision, cuing, coaxing, or he lp to set out transfer equipment or to lock brakes and/or lift foot rests TRANSFERS: TUB - SCORE: 5-SUP LOCOMOTION: WALK: Activity did not occur on this shift LOCOMOTION: WALK - SCORE: 0-UNK LOCOMOTION: WHEELCHAIR: Activity did not occur on this shift LOCOMOTION: WHEELCHAIR - SCORE: 0-UNK LOCOMOTION: STAIRS: Activity did not occur on this shift LOCOMOTION: STAIRS - SCORE: 0-UNK COMPREHENSION: COMPREHENSION - STEP 1: Does the patient require help to understand complex and abstract ideas (such as current events, finan caitlyn, discharge planning, medical issues, relationships, etc)? No. COMPREHENSION - STEP 2: Does the patient need extra time, require an assistive device (such as glasses, hearing aids, or an a ugmentative communication system), OR does s/he have mild difficulty expressing complex and abstract ideas (including mild dysarthria or mild word-finding problems)? Yes. COMPREHENSION - SCORE: 6-SRAVANTHI EXPRESSION EXPRESSION: TYPE: Non-Vocal EXPRESSION - STEP 1: Does the patient require help expressing complex and abstract ideas (such as current events, finances , discharge planning, medical issues, relationships, etc)? No. EXPRESSION - STEP 2: Does the patient need extra time, require an assistive device (such as augmentive communication syste m or a communication board), OR does s/he have mild difficulty expressing complex and abstract ideas (including mild dysarthria or mild word-find problems)? Yes. EXPRESSION - SCORE: 6-SRAVANTHI SOCIAL INTERACTION: SOCIAL INTERACTION - STEP 1: Does the patient require a helper to interact with others in social and therapeutic situations? No. SOCIAL INTERACTION - STEP 2: Does the patient need extra time in social situations, OR does s/he interact with staff, other patien ts, and family members ONLY in structured environments, OR does s/he require medication for social in teraction? Yes, patient requires medication for social interaction SOCIAL INTERACTION - SCORE: 6-SRAVANTHI PROBLEM SOLVING: PROBLEM SOLVING - STEP 1: Does the patient need help to solve complex problems such as managing a checking account or confronti ng interpersonal problems? No. PROBLEM SOLVING - STEP 2: Does the patient require extra time to make decisions or solve problems, OR does s/he have slight dif ficulty reading, initiating, or self-correcting in unfamiliar situations? Yes, patient needs extra ti me. PROBLEM SOLVING - SCORE: 6-SRAVANTHI MEMORY: MEMORY - STEP 1: Does the patient need help to remember frequently encountered people, daily routines, and executing r equests? No. MEMORY - STEP 2: Does the patient have slight difficulty recognizing frequently encountered people, daily routines, or executing requests without the need for repetition or using self-initiated or environmental cues to remember? Yes. MEMORY - SCORE: 6-SRAVANTHI SIGNATURE PANEL: The following modified sections: Eating - Score, Grooming - Score, Bathing - Score, Dressing - Upper Body - Score, Dressing - Lower Body - Score, Toileting - Score, Transfers: Bed, Chair, Wheelchair - S core, Transfers: Toilet - Score, Transfers: Shower - Score, Transfers: Tub - Score, Comprehension - S core, Expression - Score, Social Interaction - Score, Problem Solving - Score, Memory - Score were [e lectronically] signed by RAMON Hernández on MonJan 19 2018 15:12:35 [facility]-0500 ([facility] / [facility])
--- NOTE | 2018-01-19 16:11 | FAST ---
ENCOUNTER DATE AND TIME: 01/16/2018 08:00 (CDT) NAME MARIBEL MIJARES DATE OF : 1965 DATE OF ADMISSION: 01/13/2018 05:31 (CDT) PHONE: AGE: 52 N# [id number] GENDER: Male ENCOUNTER PHYSICIAN: Dr. Cameron Malcolm M.D. ADMISSION DIAGNOSIS: - Amputation of Limb 05 - Bilateral Lower Limb Below the Knee (BK/BK) (05.7) Bilateral BKA. EATING: EATING - STEP 1: Does the patient require assistance when eating? No. EATING - SCORE: 7-IND GROOMING: Comb/brush hair Wash, rinse, and dry face Wash, rinse, and dry hands GROOMING - STEP 1: Does the patient require assistance when grooming? No. GROOMING - SCORE: 7-IND BATHING: Abdomen Buttocks Chest Left arm Left upper leg Perineal area Right arm Right upper leg BATHING - STEP 1: Does the patient require assistance when bathing? Yes. BATHING - STEP 2: Does the patient require the assistance of a helper? Yes. BATHING - STEP 3: How much assistance does the patient require from the helper? Only supervision, cuing, coaxing, instr uctions, encouragement BATHING - SCORE: 5-SUP DRESSING - UPPER BODY: T-shirt/pullover shirt (four steps) ARTICLES SCORE Total number of steps: 4 DRESSING - UPPER BODY - STEP 1: Does the patient require help when dressing above the waist? Yes. DRESSING - UPPER BODY - STEP 2: Does the patient require the assistance of a helper? Yes. DRESSING - UPPER BODY - STEP 3: Does the helper touch the patient while dressing? No. DRESSING - UPPER BODY - SCORE: 5-SUP DRESSING - LOWER BODY: Elastic waist pants (three steps) Underwear (three steps) ARTICLES SCORE Total number of steps: 6 DRESSING - LOWER BODY - STEP 1: Does the patient require help when dressing below the waist? Yes. DRESSING - LOWER BODY - STEP 2: Does the patient require the assistance of a helper? Yes. DRESSING - LOWER BODY - STEP 3: Does the helper touch the patient while dressing? No. DRESSING - LOWER BODY - SCORE: 5-SUP TOILETING: Activity did not occur on this shift TOILETING - SCORE: 0-UNK BLADDER MANAGEMENT: Activity did not occur on this shift BLADDER MANAGEMENT - SCORE: 7-IND BOWEL MANAGEMENT: Activity did not occur on this shift BOWEL MANAGEMENT - SCORE: 7-IND TRANSFERS: BED, CHAIR, WHEELCHAIR: Activity did not occur on this shift TRANSFERS: BED, CHAIR, WHEELCHAIR - SCORE: 0-UNK TRANSFERS: TOILET: Activity did not occur on this shift TRANSFERS: TOILET - SCORE: 0-UNK TRANSFERS: SHOWER: Activity did not occur on this shift TRANSFERS: SHOWER - SCORE: 0-UNK TRANSFERS: TUB: TRANSFERS: TUB - STEP 1: Does the patient require assistance with tub transfers? Yes. TRANSFERS: TUB - STEP 2: Does the patient require the assistance of a helper? Yes. TRANSFERS: TUB - STEP 3: How much assistance does the patient require from the helper? Only supervision, cuing, coaxing, or he lp to set out transfer equipment or to lock brakes and/or lift foot rests TRANSFERS: TUB - SCORE: 5-SUP LOCOMOTION: WALK: Activity did not occur on this shift LOCOMOTION: WALK - SCORE: 0-UNK LOCOMOTION: WHEELCHAIR: Activity did not occur on this shift LOCOMOTION: WHEELCHAIR - SCORE: 0-UNK LOCOMOTION: STAIRS: Activity did not occur on this shift LOCOMOTION: STAIRS - SCORE: 0-UNK COMPREHENSION: COMPREHENSION: TYPE: Both COMPREHENSION - STEP 1: Does the patient require help to understand complex and abstract ideas (such as current events, finan caitlyn, discharge planning, medical issues, relationships, etc)? No. COMPREHENSION - STEP 2: Does the patient need extra time, require an assistive device (such as glasses, hearing aids, or an a ugmentative communication system), OR does s/he have mild difficulty expressing complex and abstract ideas (including mild dysarthria or mild word-finding problems)? Yes. COMPREHENSION - SCORE: 6-SRAVANTHI EXPRESSION EXPRESSION: TYPE: Both EXPRESSION - STEP 1: Does the patient require help expressing complex and abstract ideas (such as current events, finances , discharge planning, medical issues, relationships, etc)? No. EXPRESSION - STEP 2: Does the patient need extra time, require an assistive device (such as augmentive communication syste m or a communication board), OR does s/he have mild difficulty expressing complex and abstract ideas (including mild dysarthria or mild word-find problems)? Yes. EXPRESSION - SCORE: 6-SRAVANTHI SOCIAL INTERACTION: SOCIAL INTERACTION - STEP 1: Does the patient require a helper to interact with others in social and therapeutic situations? No. SOCIAL INTERACTION - STEP 2: Does the patient need extra time in social situations, OR does s/he interact with staff, other patien ts, and family members ONLY in structured environments, OR does s/he require medication for social in teraction? Yes, patient requires medication for social interaction SOCIAL INTERACTION - SCORE: 6-SRAVANTHI PROBLEM SOLVING: PROBLEM SOLVING - STEP 1: Does the patient need help to solve complex problems such as managing a checking account or confronti ng interpersonal problems? No. PROBLEM SOLVING - STEP 2: Does the patient require extra time to make decisions or solve problems, OR does s/he have slight dif ficulty reading, initiating, or self-correcting in unfamiliar situations? Yes, patient has slight dif ficulty reading, initiating, or self-correcting in unfamiliar situations. PROBLEM SOLVING - SCORE: 6-SRAVANTHI MEMORY: MEMORY - STEP 1: Does the patient need help to remember frequently encountered people, daily routines, and executing r equests? No. MEMORY - STEP 2: Does the patient have slight difficulty recognizing frequently encountered people, daily routines, or executing requests without the need for repetition or using self-initiated or environmental cues to remember? Yes. MEMORY - SCORE: 6-SRAVANTHI SIGNATURE PANEL: The following modified sections: Eating - Score, Grooming - Score, Bathing - Score, Dressing - Upper Body - Score, Dressing - Lower Body - Score, Toileting - Score, Transfers: Bed, Chair, Wheelchair - S core, Transfers: Toilet - Score, Transfers: Shower - Score, Transfers: Tub - Score, Comprehension - S core, Expression - Score, Social Interaction - Score, Problem Solving - Score, Memory - Score were [e lectronically] signed by Ida Ames OT on MonJan 19 2018 16:10:35 [facility]-0500 ([facility] [place])
--- NOTE | 2018-01-19 16:16 | FAST ---
SHIFT START DATE/TIME: 01/19/2018 07:00 (CDT) SHIFT END DATE/TIME: 01/19/2018 19:00 (CDT) NAME MARIBEL MIJARES DATE OF : 1965 DATE OF ADMISSION: 01/13/2018 05:31 (CDT) PHONE: AGE: 52 N# [id number] GENDER: Male ENCOUNTER PHYSICIAN: Dr. Cameron Malcolm M.D. ADMISSION DIAGNOSIS: - Amputation of Limb 05 - Bilateral Lower Limb Below the Knee (BK/BK) (05.7) Bilateral BKA. EATING: EATING - STEP 1: Does the patient require assistance when eating? No. EATING - SCORE: 7-IND GROOMING: Wash, rinse, and dry hands GROOMING - STEP 1: Does the patient require assistance when grooming? No. GROOMING - SCORE: 7-IND BATHING: Activity did not occur on this shift BATHING - SCORE: 0-UNK DRESSING - UPPER BODY: T-shirt/pullover shirt (four steps) ARTICLES SCORE Total number of steps: 4 DRESSING - UPPER BODY - STEP 1: Does the patient require help when dressing above the waist? No. DRESSING - UPPER BODY - SCORE: 7-IND DRESSING - LOWER BODY: Elastic waist pants (three steps) ARTICLES SCORE Total number of steps: 3 DRESSING - LOWER BODY - STEP 1: Does the patient require help when dressing below the waist? Yes. DRESSING - LOWER BODY - STEP 2: Does the patient require the assistance of a helper? No. Patient requires an assistive device such as a nutrition club ambassador. OR s/he takes more than reasonable time as s/he dresses the lower body, OR there is a con cern for safety when s/he dresses the lower body DRESSING - LOWER BODY - SCORE: 6-SRAVANTHI TOILETING: TOILETING - STEP 1: Does the patient require assistance with toileting? No. TOILETING - SCORE: 7-IND BLADDER MANAGEMENT: Patient is on renal dialysis or peritoneal dialysis and no voiding activity BLADDER MANAGEMENT - SCORE: 7-IND BLADDER MANAGEMENT - FREQUENCY OF ACCIDENTS: BLADDER MANAGEMENT(FA) - STEP 1: How many accidents has the patient had during the current shift? 0 BOWEL MANAGEMENT: BOWEL MANAGEMENT - STEP 1: Does the patient control bowels completely and intentionally without equipment devices or medications AND is always continent? Yes. BOWEL MANAGEMENT - SCORE: 7-IND BOWEL MANAGEMENT - FREQUENCY OF ACCIDENTS: BOWEL MANAGEMENT(FA) - STEP 1: How many accidents has the patient had during the current shift? 0 TRANSFERS: BED, CHAIR, WHEELCHAIR: TRANSFERS: BED, CHAIR, WHEELCHAIR - STEP 1: Does the patient require assistance with bed, chair, or wheelchair transfers? Yes. TRANSFERS: BED, CHAIR, WHEELCHAIR - STEP 2: Does the patient require the assistance of a helper? Yes. TRANSFERS: BED, CHAIR, WHEELCHAIR - STEP 3: How much assistance does the patient require from the helper? Only supervision TRANSFERS: BED, CHAIR, WHEELCHAIR - SCORE: 5-SUP TRANSFERS: TOILET: TRANSFERS: TOILET - STEP 1: Does the patient require assistance with toilet transfers? Yes. TRANSFERS: TOILET - STEP 2: Does the patient require the assistance of a helper? Yes. TRANSFERS: TOILET - STEP 3: How much assistance does the patient require from the helper? Only supervision, cuing, coaxing, OR he lp to set out transfer equipment or to lock brakes and/or lift foot rests TRANSFERS: TOILET - SCORE: 5-SUP TRANSFERS: SHOWER: Activity did not occur on this shift TRANSFERS: SHOWER - SCORE: 0-UNK TRANSFERS: TUB: Activity did not occur on this shift TRANSFERS: TUB - SCORE: 0-UNK LOCOMOTION: WALK: Activity did not occur on this shift LOCOMOTION: WALK - SCORE: 0-UNK LOCOMOTION: WHEELCHAIR: Activity did not occur on this shift LOCOMOTION: WHEELCHAIR - SCORE: 0-UNK COMPREHENSION: COMPREHENSION - SCORE: 0-UNK EXPRESSION EXPRESSION - SCORE: 0-UNK SOCIAL INTERACTION: SOCIAL INTERACTION - SCORE: 0-UNK PROBLEM SOLVING: PROBLEM SOLVING - SCORE: 0-UNK MEMORY: MEMORY - SCORE: 0-UNK SIGNATURE PANEL: The following modified sections: Eating - Score, Grooming - Score, Bathing - Score, Dressing - Upper Body - Score, Dressing - Lower Body - Score, Toileting - Score, Bladder Management - Score, Bowel Man agement - Score, Transfers: Bed, Chair, Wheelchair - Score, Transfers: Toilet - Score, Transfers: Susie wer - Score, Transfers: Tub - Score, Locomotion: Walk - Score, Locomotion: Wheelchair - Score, Compre hension - Score, Expression - Score, Social Interaction - Score, Problem Solving - Score, Memory - Sc ore were [electronically] signed by Karey Montgomery CNA on MonJan 19 2018 16:16:08 [facility]-0500 ([facility])
[2018-01-19] MEDS: EPOETIN ALFA 10,000 UNIT/ML VIAL IV SCH (16:42)
[2018-01-19] MEDS: RANITIDINE 150 MG TABLET PO SCH (20:15)
--- NOTE | 2018-01-20 02:18 | FAST ---
SHIFT START DATE/TIME: 01/19/2018 19:00 (CDT) SHIFT END DATE/TIME: 01/20/2018 07:00 (CDT) NAME MARIBEL MIJARES DATE OF : 1965 DATE OF ADMISSION: 01/13/2018 05:31 (CDT) PHONE: AGE: 52 N# [id number] GENDER: Male ENCOUNTER PHYSICIAN: Dr. Cameron Malcolm M.D. ADMISSION DIAGNOSIS: - Amputation of Limb 05 - Bilateral Lower Limb Below the Knee (BK/BK) (05.7) Bilateral BKA. EATING: Activity did not occur on this shift EATING - SCORE: 0-UNK GROOMING: Activity did not occur on this shift GROOMING - SCORE: 0-UNK BATHING: Activity did not occur on this shift BATHING - SCORE: 0-UNK DRESSING - UPPER BODY: Patient is not dressing in public clothing ARTICLES SCORE Total number of steps: 0 DRESSING - UPPER BODY - SCORE: 0-UNK DRESSING - LOWER BODY: Patient is not dressing in public clothing ARTICLES SCORE Total number of steps: 0 DRESSING - LOWER BODY - SCORE: 0-UNK TOILETING: TOILETING - STEP 1: Does the patient require assistance with toileting? Yes. TOILETING - STEP 2: Does the patient require the assistance of a helper? Yes. TOILETING - STEP 3: How much assistance does the patient require from the helper? Only supervision TOILETING - SCORE: 5-SUP BLADDER MANAGEMENT: Patient is on renal dialysis or peritoneal dialysis and no voiding activity BLADDER MANAGEMENT - SCORE: 7-IND BOWEL MANAGEMENT: Activity did not occur on this shift BOWEL MANAGEMENT - SCORE: 7-IND TRANSFERS: BED, CHAIR, WHEELCHAIR: Activity did not occur on this shift TRANSFERS: BED, CHAIR, WHEELCHAIR - SCORE: 0-UNK TRANSFERS: TOILET: Activity did not occur on this shift TRANSFERS: TOILET - SCORE: 0-UNK TRANSFERS: SHOWER: Activity did not occur on this shift TRANSFERS: SHOWER - SCORE: 0-UNK TRANSFERS: TUB: Activity did not occur on this shift TRANSFERS: TUB - SCORE: 0-UNK LOCOMOTION: WALK: Activity did not occur on this shift LOCOMOTION: WALK - SCORE: 0-UNK LOCOMOTION: WHEELCHAIR: Activity did not occur on this shift LOCOMOTION: WHEELCHAIR - SCORE: 0-UNK COMPREHENSION: COMPREHENSION: TYPE: Both COMPREHENSION - STEP 1: Does the patient require help to understand complex and abstract ideas (such as current events, finan caitlyn, discharge planning, medical issues, relationships, etc)? Yes. COMPREHENSION - STEP 2: Does the patient require help to understand questions or statements about basic needs or ideas (such as hunger, thirst, sleep, safety, daily schedule, room location, or discomfort) half or more of the t [place]? No. COMPREHENSION - STEP 3: How often does the patient need help to understand directions and conversation about basic needs? Les s than 10% of the time COMPREHENSION - SCORE: 5-SUP EXPRESSION EXPRESSION - STEP 1: Does the patient require help expressing complex and abstract ideas (such as current events, finances , discharge planning, medical issues, relationships, etc)? Yes. EXPRESSION - STEP 2: Does the patient require help to express basic necessities or ideas (such as hunger, thirst, sleep, s afety, daily schedule, room location, or discomfort) half or more of the time? No. EXPRESSION - STEP 3: How often does the patient need help to express directions and conversation about basic needs? Less t chah[place] 10% of the time EXPRESSION - SCORE: 5-SUP SOCIAL INTERACTION: SOCIAL INTERACTION - STEP 1: Does the patient require a helper to interact with others in social and therapeutic situations? No. SOCIAL INTERACTION - STEP 2: Does the patient need extra time in social situations, OR does s/he interact with staff, other patien ts, and family members ONLY in structured environments, OR does s/he require medication for social in teraction? Yes, patient needs extra time SOCIAL INTERACTION - SCORE: 6-SRAVANTHI PROBLEM SOLVING: PROBLEM SOLVING - STEP 1: Does the patient need help to solve complex problems such as managing a checking account or confronti ng interpersonal problems? Yes. PROBLEM SOLVING - STEP 2: Does the patient solve basic routine problems half or more of the time? Yes. PROBLEM SOLVING - STEP 3: How often does the patient need help to solve basic routine problems? Less than 10% of the time PROBLEM SOLVING - SCORE: 5-SUP MEMORY: MEMORY - STEP 1: Does the patient need help to remember frequently encountered people, daily routines, and executing r equests? No. MEMORY - STEP 2: Does the patient have slight difficulty recognizing frequently encountered people, daily routines, or executing requests without the need for repetition or using self-initiated or environmental cues to remember? Yes. MEMORY - SCORE: 6-SRAVANTHI
[2018-01-20] MEDS: TRAMADOL HCL 50 MG TAB PO PRN ×2 (04:50→12:11)
[2018-01-20] MEDS: METOPROLOL TAR 25 MG TAB PO SCH (05:04)
[2018-01-20] MEDS: HEPARIN 5000 UNIT/ML 1 ML VIAL SQ SCH ×2 (06:04→18:16)
[2018-01-20] MEDS: HYDROCODONE/APAP 5/325 MG TAB PO PRN ×2 (06:52→22:01)
[2018-01-20] MEDS: INSULIN -REGULAR HUMAN 50 UNIT/0.5 ML ML SQ SCH ×4 (07:30→20:42)
[2018-01-20] MEDS: COLLAGENASE 30 GM OINTMENT TOP SCH ×2 (08:00→22:05)
[2018-01-20] MEDS: PROMOD 30 ML DOSE PO SCH ×2 (08:00→20:00)
[2018-01-20] MEDS: LISINOPRIL 10 MG TAB PO SCH ×2 (08:51→20:40)
[2018-01-20] MEDS: FERROUS SULFATE 325 MG TAB PO SCH (08:51)
[2018-01-20] MEDS: ASCORBIC ACID 500 MG TABLET PO SCH (08:51)
[2018-01-20] MEDS: FUROSEMIDE 40 MG TABLET PO SCH (08:51)
[2018-01-20] MEDS: CLOPIDOGREL 75 MG TABLET PO SCH (08:52)
[2018-01-20] MEDS: FE SULF/FA/VIT B COMP & C TAB PO SCH (08:52)
[2018-01-20] MEDS: CYANOCOBALAMIN 1,000 MCG TAB PO SCH (08:52)
[2018-01-20] MEDS: SEVELAMER CARBONATE 800 MG TABLET PO SCH ×3 (08:52→17:06)
[2018-01-20] MEDS: JUVEN PACKET PO SCH ×2 (08:53→20:00)
[2018-01-20] MEDS: hydrOXYzine HCl 25 MG TAB PO PRN (14:19)
--- NOTE | 2018-01-20 14:33 | FAST ---
SHIFT START DATE/TIME: 01/20/2018 07:00 (CDT) SHIFT END DATE/TIME: 01/20/2018 19:00 (CDT) NAME MARIBEL MIJARES DATE OF : 1965 DATE OF ADMISSION: 01/13/2018 05:31 (CDT) PHONE: AGE: 52 N# [id number] GENDER: Male ENCOUNTER PHYSICIAN: Dr. Cameron Malcolm M.D. ADMISSION DIAGNOSIS: - Amputation of Limb 05 - Bilateral Lower Limb Below the Knee (BK/BK) (05.7) Bilateral BKA. EATING: EATING - STEP 1: Does the patient require assistance when eating? Yes. EATING - STEP 2: Does the patient require the assistance of a helper? Yes. EATING - STEP 3: Does the patient perform half or more of the eating tasks? Yes. EATING - STEP 4: Does the patient need only supervision, cuing, coaxing OR help to apply an orthosis OR help to cut fo od, open containers, pour liquids, or butter bread? Yes. EATING - SCORE: 5-SUP GROOMING: Activity did not occur on this shift GROOMING - SCORE: 0-UNK BATHING: Activity did not occur on this shift BATHING - SCORE: 0-UNK DRESSING - UPPER BODY: Activity did not occur on this shift ARTICLES SCORE Total number of steps: 0 DRESSING - UPPER BODY - SCORE: 0-UNK DRESSING - LOWER BODY: Activity did not occur on this shift ARTICLES SCORE Total number of steps: 0 DRESSING - LOWER BODY - SCORE: 0-UNK TOILETING: Activity did not occur on this shift TOILETING - SCORE: 0-UNK BLADDER MANAGEMENT: Patient is on renal dialysis or peritoneal dialysis and no voiding activity BLADDER MANAGEMENT - SCORE: 7-IND BLADDER MANAGEMENT - FREQUENCY OF ACCIDENTS: BLADDER MANAGEMENT(FA) - STEP 1: How many accidents has the patient had during the current shift? 0 BOWEL MANAGEMENT: Activity did not occur on this shift BOWEL MANAGEMENT - SCORE: 7-IND BOWEL MANAGEMENT - FREQUENCY OF ACCIDENTS: BOWEL MANAGEMENT(FA) - STEP 1: How many accidents has the patient had during the current shift? 0 TRANSFERS: BED, CHAIR, WHEELCHAIR: TRANSFERS: BED, CHAIR, WHEELCHAIR - STEP 1: Does the patient require assistance with bed, chair, or wheelchair transfers? Yes. TRANSFERS: BED, CHAIR, WHEELCHAIR - STEP 2: Does the patient require the assistance of a helper? Yes. TRANSFERS: BED, CHAIR, WHEELCHAIR - STEP 3: How much assistance does the patient require from the helper? Only supervision TRANSFERS: BED, CHAIR, WHEELCHAIR - SCORE: 5-SUP TRANSFERS: TOILET: Activity did not occur on this shift TRANSFERS: TOILET - SCORE: 0-UNK TRANSFERS: SHOWER: Activity did not occur on this shift TRANSFERS: SHOWER - SCORE: 0-UNK TRANSFERS: TUB: Activity did not occur on this shift TRANSFERS: TUB - SCORE: 0-UNK LOCOMOTION: WALK: Activity did not occur on this shift LOCOMOTION: WALK - SCORE: 0-UNK LOCOMOTION: WHEELCHAIR: LOCOMOTION: WHEELCHAIR - STEP 1: Does the patient need help to go 150 feet in a wheelchair? Yes. LOCOMOTION: WHEELCHAIR - STEP 2: How much assistance does the patient need from the helper? Only supervision, cuing, or coaxing LOCOMOTION: WHEELCHAIR - SCORE: 5-SUP COMPREHENSION: COMPREHENSION: TYPE: Both COMPREHENSION - STEP 1: Does the patient require help to understand complex and abstract ideas (such as current events, finan caitlyn, discharge planning, medical issues, relationships, etc)? Yes. COMPREHENSION - STEP 2: Does the patient require help to understand questions or statements about basic needs or ideas (such as hunger, thirst, sleep, safety, daily schedule, room location, or discomfort) half or more of the t [place]? No. COMPREHENSION - STEP 3: How often does the patient need help to understand directions and conversation about basic needs? Les s than 10% of the time COMPREHENSION - SCORE: 5-SUP EXPRESSION EXPRESSION: TYPE: Both EXPRESSION - STEP 1: Does the patient require help expressing complex and abstract ideas (such as current events, finances , discharge planning, medical issues, relationships, etc)? Yes. EXPRESSION - STEP 2: Does the patient require help to express basic necessities or ideas (such as hunger, thirst, sleep, s afety, daily schedule, room location, or discomfort) half or more of the time? No. EXPRESSION - STEP 3: How often does the patient need help to express directions and conversation about basic needs? Less t chahal 10% of the time EXPRESSION - SCORE: 5-SUP SOCIAL INTERACTION: SOCIAL INTERACTION - STEP 1: Does the patient require a helper to interact with others in social and therapeutic situations? No. SOCIAL INTERACTION - STEP 2: Does the patient need extra time in social situations, OR does s/he interact with staff, other patien ts, and family members ONLY in structured environments, OR does s/he require medication for social in teraction? Yes, patient needs extra time SOCIAL INTERACTION - SCORE: 6-SRAVANTHI PROBLEM SOLVING: PROBLEM SOLVING - STEP 1: Does the patient need help to solve complex problems such as managing a checking account or confronti ng interpersonal problems? No. PROBLEM SOLVING - STEP 2: Does the patient require extra time to make decisions or solve problems, OR does s/he have slight dif ficulty reading, initiating, or self-correcting in unfamiliar situations? Yes, patient needs extra ti me. PROBLEM SOLVING - SCORE: 6-SRAVANTHI MEMORY: MEMORY - STEP 1: Does the patient need help to remember frequently encountered people, daily routines, and executing r equests? No. MEMORY - STEP 2: Does the patient have slight difficulty recognizing frequently encountered people, daily routines, or executing requests without the need for repetition or using self-initiated or environmental cues to remember? Yes. MEMORY - SCORE: 6-SRAVANTHI SIGNATURE PANEL: The following modified sections: Eating - Score, Grooming - Score, Bathing - Score, Dressing - Upper Body - Score, Dressing - Lower Body - Score, Toileting - Score, Bladder Management - Score, Bowel Man agement - Score, Transfers: Bed, Chair, Wheelchair - Score, Transfers: Shower - Score, Transfers: Addy let - Score, Transfers: Tub - Score, Locomotion: Walk - Score, Locomotion: Wheelchair - Score, Compre hension - Score, Expression - Score, Social Interaction - Score, Problem Solving - Score, Memory - Sc ore were [electronically] signed by Meli Roque RN on Sat Jan 20 2018 14:32:27 GMT-0500 (Central Dayl ight Time)
--- NOTE | 2018-01-20 14:34 | FAST ---
ENCOUNTER DATE AND TIME: 01/20/2018 08:00 (CDT) NAME MARIBEL MIJARES DATE OF : 1965 DATE OF ADMISSION: 01/13/2018 05:31 (CDT) PHONE: AGE: 52 SSN# [id number] GENDER: Male ENCOUNTER PHYSICIAN: Dr. Cameron Malcolm M.D. ADMISSION DIAGNOSIS: - Amputation of Limb 05 - Bilateral Lower Limb Below the Knee (BK/BK) (05.7) Bilateral BKA. EATING: Activity did not occur on this shift EATING - SCORE: 0-UNK GROOMING: Activity did not occur on this shift GROOMING - SCORE: 0-UNK BATHING: Activity did not occur on this shift BATHING - SCORE: 0-UNK DRESSING - UPPER BODY: Activity did not occur on this shift Patient is not dressing in public clothing ARTICLES SCORE Total number of steps: 0 DRESSING - UPPER BODY - SCORE: 0-UNK DRESSING - LOWER BODY: Activity did not occur on this shift Patient is not dressing in public clothing ARTICLES SCORE Total number of steps: 0 DRESSING - LOWER BODY - SCORE: 0-UNK TOILETING: Activity did not occur on this shift TOILETING - SCORE: 0-UNK BLADDER MANAGEMENT: Activity did not occur on this shift BLADDER MANAGEMENT - SCORE: 7-IND BOWEL MANAGEMENT: Activity did not occur on this shift BOWEL MANAGEMENT - SCORE: 7-IND TRANSFERS: BED, CHAIR, WHEELCHAIR: TRANSFERS: BED, CHAIR, WHEELCHAIR - STEP 1: Does the patient require assistance with bed, chair, or wheelchair transfers? Yes. TRANSFERS: BED, CHAIR, WHEELCHAIR - STEP 2: Does the patient require the assistance of a helper? No. Patient only requires an assistive device fo r bed, chair, wheelchair transfers such as a sliding board, grab bar, or brace, OR s/he takes more th an reasonable time, OR there is a safety concern when s/he performs the transfers TRANSFERS: BED, CHAIR, WHEELCHAIR - SCORE: 6-SRAVANTHI TRANSFERS: TOILET: Activity did not occur on this shift TRANSFERS: TOILET - SCORE: 0-UNK TRANSFERS: SHOWER: Activity did not occur on this shift TRANSFERS: SHOWER - SCORE: 0-UNK TRANSFERS: TUB: Activity did not occur on this shift TRANSFERS: TUB - SCORE: 0-UNK LOCOMOTION: WALK: Activity did not occur on this shift LOCOMOTION: WALK - SCORE: 0-UNK LOCOMOTION: WHEELCHAIR: LOCOMOTION: WHEELCHAIR - STEP 1: Does the patient need help to go 150 feet in a wheelchair? Yes. LOCOMOTION: WHEELCHAIR - STEP 2: How much assistance does the patient need from the helper? Only supervision, cuing, or coaxing LOCOMOTION: WHEELCHAIR - SCORE: 5-SUP LOCOMOTION: STAIRS: Activity did not occur on this shift LOCOMOTION: STAIRS - SCORE: 0-UNK COMPREHENSION: COMPREHENSION - SCORE: 0-UNK EXPRESSION EXPRESSION - SCORE: 0-UNK SOCIAL INTERACTION: SOCIAL INTERACTION - SCORE: 0-UNK PROBLEM SOLVING: PROBLEM SOLVING - SCORE: 0-UNK MEMORY: MEMORY - SCORE: 0-UNK SIGNATURE PANEL: The following modified sections: Transfers: Bed, Chair, Wheelchair - Score, Transfers: Toilet - Score , Locomotion: Walk - Score, Locomotion: Wheelchair - Score, Locomotion: Stairs - Score were [electron reji] signed by Yee Vallecillo PTA on Sat Jan 20 2018 14:34:23 GMT-0500 (Central Daylight Time)
--- NOTE | 2018-01-20 19:42 | RAD REPORT ---
EXAM DESCRIPTION: RAD - Knee Left 2 View - 01/20/2018 7:11 pm CLINICAL HISTORY: Left knee pain FINDINGS: No fracture or dislocation is seen. A smmod-xco-vfeh amputation is noted. There is a lucency within the tibial stump at the site of resection which could be a postsurgical morena nge or related to osteomyelitis and should be correlated clinically. MRI may be helpful.
[2018-01-20] MEDS: RANITIDINE 150 MG TABLET PO SCH (20:40)
[2018-01-20] MEDS: HYDROCORTISONE 1 % CREAM 30GM TOP PRN (20:40)
--- NOTE | 2018-01-21 02:09 | FAST ---
SHIFT START DATE/TIME: 01/20/2018 19:00 (CDT) SHIFT END DATE/TIME: 01/21/2018 07:00 (CDT) NAME MARIBEL MIJARES DATE OF : 1965 DATE OF ADMISSION: 01/13/2018 05:31 (CDT) PHONE: AGE: 52 N# [id number] GENDER: Male ENCOUNTER PHYSICIAN: Dr. Cameron Malcolm M.D. ADMISSION DIAGNOSIS: - Amputation of Limb 05 - Bilateral Lower Limb Below the Knee (BK/BK) (05.7) Bilateral BKA. EATING: Activity did not occur on this shift EATING - SCORE: 0-UNK GROOMING: Activity did not occur on this shift GROOMING - SCORE: 0-UNK BATHING: Activity did not occur on this shift BATHING - SCORE: 0-UNK DRESSING - UPPER BODY: Patient is not dressing in public clothing ARTICLES SCORE Total number of steps: 0 DRESSING - UPPER BODY - SCORE: 0-UNK DRESSING - LOWER BODY: Patient is not dressing in public clothing ARTICLES SCORE Total number of steps: 0 DRESSING - LOWER BODY - SCORE: 0-UNK TOILETING: Activity did not occur on this shift TOILETING - SCORE: 0-UNK BLADDER MANAGEMENT: Patient is on renal dialysis or peritoneal dialysis and no voiding activity BLADDER MANAGEMENT - SCORE: 7-IND BOWEL MANAGEMENT: Activity did not occur on this shift BOWEL MANAGEMENT - SCORE: 7-IND TRANSFERS: BED, CHAIR, WHEELCHAIR: Activity did not occur on this shift TRANSFERS: BED, CHAIR, WHEELCHAIR - SCORE: 0-UNK TRANSFERS: TOILET: Activity did not occur on this shift TRANSFERS: TOILET - SCORE: 0-UNK TRANSFERS: SHOWER: Activity did not occur on this shift TRANSFERS: SHOWER - SCORE: 0-UNK TRANSFERS: TUB: Activity did not occur on this shift TRANSFERS: TUB - SCORE: 0-UNK LOCOMOTION: WALK: Activity did not occur on this shift LOCOMOTION: WALK - SCORE: 0-UNK LOCOMOTION: WHEELCHAIR: Activity did not occur on this shift LOCOMOTION: WHEELCHAIR - SCORE: 0-UNK COMPREHENSION: COMPREHENSION - STEP 1: Does the patient require help to understand complex and abstract ideas (such as current events, finan caitlyn, discharge planning, medical issues, relationships, etc)? Yes. COMPREHENSION - STEP 2: Does the patient require help to understand questions or statements about basic needs or ideas (such as hunger, thirst, sleep, safety, daily schedule, room location, or discomfort) half or more of the t [place]? No. COMPREHENSION - STEP 3: How often does the patient need help to understand directions and conversation about basic needs? 10% - 24% of the time COMPREHENSION - SCORE: 4-MIN EXPRESSION EXPRESSION - STEP 1: Does the patient require help expressing complex and abstract ideas (such as current events, finances , discharge planning, medical issues, relationships, etc)? Yes. EXPRESSION - STEP 2: Does the patient require help to express basic necessities or ideas (such as hunger, thirst, sleep, s afety, daily schedule, room location, or discomfort) half or more of the time? No. EXPRESSION - STEP 3: How often does the patient need help to express directions and conversation about basic needs? 10-24% of the time EXPRESSION - SCORE: 4-MIN SOCIAL INTERACTION: SOCIAL INTERACTION - STEP 1: Does the patient require a helper to interact with others in social and therapeutic situations? No. SOCIAL INTERACTION - STEP 2: Does the patient need extra time in social situations, OR does s/he interact with staff, other patien ts, and family members ONLY in structured environments, OR does s/he require medication for social in teraction? Yes, patient needs extra time SOCIAL INTERACTION - SCORE: 6-SRAVANTHI PROBLEM SOLVING: PROBLEM SOLVING - STEP 1: Does the patient need help to solve complex problems such as managing a checking account or confronti ng interpersonal problems? Yes. PROBLEM SOLVING - STEP 2: Does the patient solve basic routine problems half or more of the time? Yes. PROBLEM SOLVING - STEP 3: How often does the patient need help to solve basic routine problems? 10%-24% of the time PROBLEM SOLVING - SCORE: 4-MIN MEMORY: MEMORY - STEP 1: Does the patient need help to remember frequently encountered people, daily routines, and executing r equests? No. MEMORY - STEP 2: Does the patient have slight difficulty recognizing frequently encountered people, daily routines, or executing requests without the need for repetition or using self-initiated or environmental cues to remember? Yes. MEMORY - SCORE: 6-SRAVANTHI SIGNATURE PANEL: The following modified sections: Eating - Score, Grooming - Score, Dressing - Upper Body - Score, Rubens ssing - Lower Body - Score, Toileting - Score, Bladder Management - Score, Bowel Management - Score, Transfers: Bed, Chair, Wheelchair - Score, Transfers: Toilet - Score, Transfers: Shower - Score, Ash sfers: Tub - Score, Locomotion: Walk - Score, Locomotion: Wheelchair - Score, Comprehension - Score, Expression - Score, Social Interaction - Score, Problem Solving - Score, Memory - Score were [electro nically] signed by Charito Mathur CNA on MonJan 21 2018 02:08:45 T-0500 (Central Daylight Time)
--- NOTE | 2018-01-21 03:04 | PN ---
Date of Progress Note: 01/20/2018 NEPHROLOGY FOLLOWUP NOTE Subjective: The patient was getting weak, doing physical therapy. Physical Examination: Vital Signs: Blood pressure of 170/82, pulse of 62. Chest: Clear to auscultation. Heart: S1, S2. Systolic murmur. Abdomen: Soft, nontender. Extremities: Bilateral below-knee amputation. Laboratory Data: H and H 11.2/34.5. Sodium 135, potassium 4, bicarb 25, BUN 55 , creatinine 5.3, calcium 9.3. Current Medications: The patient on its include; 1. Atarax. 2. Epogen. 3. Lisinopril 20. 4. Metoprolol. 5. Lasix 80 daily. 6. Renvela. 7. Tramadol. 8. Hydrocodone. Assessment And Plan: 1. End-stage renal disease. We will continue the patient on dialysis. 2. Itching possible secondary to hyperphosphatemia secondary to hyper Lola and an increased Renvela. Continue symptomatic treatment. We will get phosphorous level. 3. Anemia of chronic kidney disease, stable. We will monitor. No need for HALIMA. 4. Peripheral vascular disease, status post bilateral below-knee amputation. Follow up PT/OT. ULYSSES/DONNA Voice ID: [id number] Report ID: [id number] MTDD
[2018-01-21] MEDS: METOPROLOL TAR 25 MG TAB PO SCH (05:06)
[2018-01-21] MEDS: HYDROCODONE/APAP 5/325 MG TAB PO PRN ×3 (05:06→17:24)
[2018-01-21 07:19] LABS: Albumin 2.3 g/dL (3.4-5.0); Potassium 4.1 mmol/L (3.5-5.1)
[2018-01-21] MEDS: INSULIN -REGULAR HUMAN 50 UNIT/0.5 ML ML SQ SCH ×4 (07:30→20:50)
[2018-01-21] MEDS: HEPARIN 5000 UNIT/ML 1 ML VIAL SQ SCH ×2 (08:00→18:10)
[2018-01-21] MEDS: COLLAGENASE 30 GM OINTMENT TOP SCH ×2 (08:00→21:02)
[2018-01-21] MEDS: ASCORBIC ACID 500 MG TABLET PO SCH (08:45)
[2018-01-21] MEDS: CYANOCOBALAMIN 1,000 MCG TAB PO SCH (08:45)
[2018-01-21] MEDS: SEVELAMER CARBONATE 800 MG TABLET PO SCH ×3 (08:45→16:54)
[2018-01-21] MEDS: FERROUS SULFATE 325 MG TAB PO SCH (08:46)
[2018-01-21] MEDS: FUROSEMIDE 40 MG TABLET PO SCH (08:46)
[2018-01-21] MEDS: FE SULF/FA/VIT B COMP & C TAB PO SCH (08:46)
[2018-01-21] MEDS: LISINOPRIL 10 MG TAB PO SCH ×2 (08:46→20:49)
[2018-01-21] MEDS: CLOPIDOGREL 75 MG TABLET PO SCH (08:47)
[2018-01-21] MEDS: JUVEN PACKET PO SCH ×2 (08:49→20:00)
[2018-01-21] MEDS: PROMOD 30 ML DOSE PO SCH ×2 (09:28→20:00)
--- NOTE | 2018-01-21 14:00 | FAST ---
SHIFT START DATE/TIME: 01/21/2018 07:00 (CDT) SHIFT END DATE/TIME: 01/21/2018 19:00 (CDT) NAME MARIBEL MIJARES DATE OF : 1965 DATE OF ADMISSION: 01/13/2018 05:31 (CDT) PHONE: AGE: 52 N# [id number] GENDER: Male ENCOUNTER PHYSICIAN: Dr. Cameron Malcolm M.D. ADMISSION DIAGNOSIS: - Amputation of Limb 05 - Bilateral Lower Limb Below the Knee (BK/BK) (05.7) Bilateral BKA. EATING: EATING - STEP 1: Does the patient require assistance when eating? Yes. EATING - STEP 2: Does the patient require the assistance of a helper? Yes. EATING - STEP 3: Does the patient perform half or more of the eating tasks? Yes. EATING - STEP 4: Does the patient need only supervision, cuing, coaxing OR help to apply an orthosis OR help to cut fo od, open containers, pour liquids, or butter bread? Yes. EATING - SCORE: 5-SUP GROOMING: Activity did not occur on this shift GROOMING - SCORE: 0-UNK BATHING: Activity did not occur on this shift BATHING - SCORE: 0-UNK DRESSING - UPPER BODY: Activity did not occur on this shift ARTICLES SCORE Total number of steps: 0 DRESSING - UPPER BODY - SCORE: 0-UNK DRESSING - LOWER BODY: Activity did not occur on this shift ARTICLES SCORE Total number of steps: 0 DRESSING - LOWER BODY - SCORE: 0-UNK TOILETING: TOILETING - STEP 1: Does the patient require assistance with toileting? Yes. TOILETING - STEP 2: Does the patient require the assistance of a helper? Yes. TOILETING - STEP 3: How much assistance does the patient require from the helper? Only supervision TOILETING - SCORE: 5-SUP BLADDER MANAGEMENT: Patient is on renal dialysis or peritoneal dialysis and no voiding activity BLADDER MANAGEMENT - SCORE: 7-IND BLADDER MANAGEMENT - FREQUENCY OF ACCIDENTS: BLADDER MANAGEMENT(FA) - STEP 1: How many accidents has the patient had during the current shift? 0 BOWEL MANAGEMENT: Activity did not occur on this shift BOWEL MANAGEMENT - SCORE: 7-IND BOWEL MANAGEMENT - FREQUENCY OF ACCIDENTS: BOWEL MANAGEMENT(FA) - STEP 1: How many accidents has the patient had during the current shift? 0 TRANSFERS: BED, CHAIR, WHEELCHAIR: TRANSFERS: BED, CHAIR, WHEELCHAIR - STEP 1: Does the patient require assistance with bed, chair, or wheelchair transfers? Yes. TRANSFERS: BED, CHAIR, WHEELCHAIR - STEP 2: Does the patient require the assistance of a helper? Yes. TRANSFERS: BED, CHAIR, WHEELCHAIR - STEP 3: How much assistance does the patient require from the helper? Only supervision TRANSFERS: BED, CHAIR, WHEELCHAIR - SCORE: 5-SUP TRANSFERS: TOILET: TRANSFERS: TOILET - STEP 1: Does the patient require assistance with toilet transfers? Yes. TRANSFERS: TOILET - STEP 2: Does the patient require the assistance of a helper? Yes. TRANSFERS: TOILET - STEP 3: How much assistance does the patient require from the helper? Only supervision, cuing, coaxing, OR he lp to set out transfer equipment or to lock brakes and/or lift foot rests TRANSFERS: TOILET - SCORE: 5-SUP TRANSFERS: SHOWER: Activity did not occur on this shift TRANSFERS: SHOWER - SCORE: 0-UNK TRANSFERS: TUB: Activity did not occur on this shift TRANSFERS: TUB - SCORE: 0-UNK LOCOMOTION: WALK: Activity did not occur on this shift LOCOMOTION: WALK - SCORE: 0-UNK LOCOMOTION: WHEELCHAIR: LOCOMOTION: WHEELCHAIR - STEP 1: Does the patient need help to go 150 feet in a wheelchair? Yes. LOCOMOTION: WHEELCHAIR - STEP 2: How much assistance does the patient need from the helper? Only supervision, cuing, or coaxing LOCOMOTION: WHEELCHAIR - SCORE: 5-SUP COMPREHENSION: COMPREHENSION: TYPE: Both COMPREHENSION - STEP 1: Does the patient require help to understand complex and abstract ideas (such as current events, finan caitlyn, discharge planning, medical issues, relationships, etc)? No. COMPREHENSION - STEP 2: Does the patient need extra time, require an assistive device (such as glasses, hearing aids, or an a ugmentative communication system), OR does s/he have mild difficulty expressing complex and abstract ideas (including mild dysarthria or mild word-finding problems)? Yes. COMPREHENSION - SCORE: 6-SRAVANTHI EXPRESSION EXPRESSION: TYPE: Both EXPRESSION - STEP 1: Does the patient require help expressing complex and abstract ideas (such as current events, finances , discharge planning, medical issues, relationships, etc)? No. EXPRESSION - STEP 2: Does the patient need extra time, require an assistive device (such as augmentive communication syste m or a communication board), OR does s/he have mild difficulty expressing complex and abstract ideas (including mild dysarthria or mild word-find problems)? Yes. EXPRESSION - SCORE: 6-SRAVANTHI SOCIAL INTERACTION: SOCIAL INTERACTION - STEP 1: Does the patient require a helper to interact with others in social and therapeutic situations? No. SOCIAL INTERACTION - STEP 2: Does the patient need extra time in social situations, OR does s/he interact with staff, other patien ts, and family members ONLY in structured environments, OR does s/he require medication for social in teraction? Yes, patient requires medication for social interaction SOCIAL INTERACTION - SCORE: 6-SRAVANTHI PROBLEM SOLVING: PROBLEM SOLVING - STEP 1: Does the patient need help to solve complex problems such as managing a checking account or confronti ng interpersonal problems? No. PROBLEM SOLVING - STEP 2: Does the patient require extra time to make decisions or solve problems, OR does s/he have slight dif ficulty reading, initiating, or self-correcting in unfamiliar situations? Yes, patient needs extra ti me. PROBLEM SOLVING - SCORE: 6-SRAVANTHI MEMORY: MEMORY - STEP 1: Does the patient need help to remember frequently encountered people, daily routines, and executing r equests? No. MEMORY - STEP 2: Does the patient have slight difficulty recognizing frequently encountered people, daily routines, or executing requests without the need for repetition or using self-initiated or environmental cues to remember? Yes. MEMORY - SCORE: 6-SRAVANTHI SIGNATURE PANEL: The following modified sections: Eating - Score, Grooming - Score, Bathing - Score, Dressing - Upper Body - Score, Dressing - Lower Body - Score, Toileting - Score, Bladder Management - Score, Bowel Man agement - Score, Transfers: Bed, Chair, Wheelchair - Score, Transfers: Toilet - Score, Transfers: Susie wer - Score, Transfers: Tub - Score, Locomotion: Walk - Score, Locomotion: Wheelchair - Score, Compre hension - Score, Expression - Score, Problem Solving - Score, Social Interaction - Score, Memory - Sc ore were [electronically] signed by Meli Roque RN on MonJan 21 2018 14:00:05 GMT-0500 ([facility])
[2018-01-21] MEDS: hydrOXYzine HCl 25 MG TAB PO PRN (14:29)
[2018-01-21] MEDS: RANITIDINE 150 MG TABLET PO SCH (20:48)
[2018-01-21] MEDS: HYDROCORTISONE 1 % CREAM 30GM TOP PRN (20:51)
--- NOTE | 2018-01-22 02:32 | FAST ---
SHIFT START DATE/TIME: 01/21/2018 19:00 (CDT) SHIFT END DATE/TIME: 01/22/2018 07:00 (CDT) NAME MARIBEL MIJARES DATE OF : 1965 DATE OF ADMISSION: 01/13/2018 05:31 (CDT) PHONE: AGE: 52 N# [id number] GENDER: Male ENCOUNTER PHYSICIAN: Dr. Cameron Malcolm M.D. ADMISSION DIAGNOSIS: - Amputation of Limb 05 - Bilateral Lower Limb Below the Knee (BK/BK) (05.7) Bilateral BKA. EATING: Activity did not occur on this shift EATING - SCORE: 0-UNK GROOMING: Activity did not occur on this shift GROOMING - SCORE: 0-UNK BATHING: Activity did not occur on this shift BATHING - SCORE: 0-UNK DRESSING - UPPER BODY: Patient is not dressing in public clothing ARTICLES SCORE Total number of steps: 0 DRESSING - UPPER BODY - SCORE: 0-UNK DRESSING - LOWER BODY: Patient is not dressing in public clothing ARTICLES SCORE Total number of steps: 0 DRESSING - LOWER BODY - SCORE: 0-UNK TOILETING: Activity did not occur on this shift TOILETING - SCORE: 0-UNK BLADDER MANAGEMENT: Patient is on renal dialysis or peritoneal dialysis and no voiding activity BLADDER MANAGEMENT - SCORE: 7-IND BOWEL MANAGEMENT: Activity did not occur on this shift BOWEL MANAGEMENT - SCORE: 7-IND TRANSFERS: BED, CHAIR, WHEELCHAIR: Activity did not occur on this shift TRANSFERS: BED, CHAIR, WHEELCHAIR - SCORE: 0-UNK TRANSFERS: TOILET: Activity did not occur on this shift TRANSFERS: TOILET - SCORE: 0-UNK TRANSFERS: SHOWER: Activity did not occur on this shift TRANSFERS: SHOWER - SCORE: 0-UNK TRANSFERS: TUB: Activity did not occur on this shift TRANSFERS: TUB - SCORE: 0-UNK LOCOMOTION: WALK: Activity did not occur on this shift LOCOMOTION: WALK - SCORE: 0-UNK LOCOMOTION: WHEELCHAIR: Activity did not occur on this shift LOCOMOTION: WHEELCHAIR - SCORE: 0-UNK COMPREHENSION: COMPREHENSION - STEP 1: Does the patient require help to understand complex and abstract ideas (such as current events, finan caitlyn, discharge planning, medical issues, relationships, etc)? Yes. COMPREHENSION - STEP 2: Does the patient require help to understand questions or statements about basic needs or ideas (such as hunger, thirst, sleep, safety, daily schedule, room location, or discomfort) half or more of the t [place]? No. COMPREHENSION - STEP 3: How often does the patient need help to understand directions and conversation about basic needs? 10% - 24% of the time COMPREHENSION - SCORE: 4-MIN EXPRESSION EXPRESSION - STEP 1: Does the patient require help expressing complex and abstract ideas (such as current events, finances , discharge planning, medical issues, relationships, etc)? Yes. EXPRESSION - STEP 2: Does the patient require help to express basic necessities or ideas (such as hunger, thirst, sleep, s afety, daily schedule, room location, or discomfort) half or more of the time? No. EXPRESSION - STEP 3: How often does the patient need help to express directions and conversation about basic needs? 10-24% of the time EXPRESSION - SCORE: 4-MIN SOCIAL INTERACTION: SOCIAL INTERACTION - STEP 1: Does the patient require a helper to interact with others in social and therapeutic situations? No. SOCIAL INTERACTION - STEP 2: Does the patient need extra time in social situations, OR does s/he interact with staff, other patien ts, and family members ONLY in structured environments, OR does s/he require medication for social in teraction? Yes, patient needs extra time SOCIAL INTERACTION - SCORE: 6-SRAVANTHI PROBLEM SOLVING: PROBLEM SOLVING - STEP 1: Does the patient need help to solve complex problems such as managing a checking account or confronti ng interpersonal problems? Yes. PROBLEM SOLVING - STEP 2: Does the patient solve basic routine problems half or more of the time? Yes. PROBLEM SOLVING - STEP 3: How often does the patient need help to solve basic routine problems? 10%-24% of the time PROBLEM SOLVING - SCORE: 4-MIN MEMORY: MEMORY - STEP 1: Does the patient need help to remember frequently encountered people, daily routines, and executing r equests? No. MEMORY - STEP 2: Does the patient have slight difficulty recognizing frequently encountered people, daily routines, or executing requests without the need for repetition or using self-initiated or environmental cues to remember? Yes. MEMORY - SCORE: 6-SRAVANTHI SIGNATURE PANEL: The following modified sections: Eating - Score, Grooming - Score, Dressing - Upper Body - Score, Rubens ssing - Lower Body - Score, Toileting - Score, Bladder Management - Score, Bowel Management - Score, Transfers: Bed, Chair, Wheelchair - Score, Transfers: Toilet - Score, Transfers: Shower - Score, Ash sfers: Tub - Score, Locomotion: Walk - Score, Locomotion: Wheelchair - Score, Comprehension - Score, Expression - Score, Social Interaction - Score, Problem Solving - Score, Memory - Score were [electro nically] signed by Charito Mathur CNA on MonJan 22 2018 02:32:05 T-0500 (Central Daylight Time)
[2018-01-22] MEDS: METOPROLOL TAR 25 MG TAB PO SCH (05:16)
[2018-01-22] MEDS: HYDROCODONE/APAP 5/325 MG TAB PO PRN ×3 (05:17→23:45)
[2018-01-22] MEDS: INSULIN -REGULAR HUMAN 50 UNIT/0.5 ML ML SQ SCH ×4 (07:30→20:15)
[2018-01-22] MEDS: FERROUS SULFATE 325 MG TAB PO SCH (08:21)
[2018-01-22] MEDS: FE SULF/FA/VIT B COMP & C TAB PO SCH (08:21)
[2018-01-22] MEDS: CYANOCOBALAMIN 1,000 MCG TAB PO SCH (08:21)
[2018-01-22] MEDS: SEVELAMER CARBONATE 800 MG TABLET PO SCH ×3 (08:21→18:17)
[2018-01-22] MEDS: LISINOPRIL 10 MG TAB PO SCH ×2 (08:22→20:26)
[2018-01-22] MEDS: ASCORBIC ACID 500 MG TABLET PO SCH (08:23)
[2018-01-22] MEDS: CLOPIDOGREL 75 MG TABLET PO SCH (08:23)
[2018-01-22] MEDS: TRAMADOL HCL 50 MG TAB PO PRN ×2 (08:23→20:27)
[2018-01-22] MEDS: HYDROCORTISONE 1 % CREAM 30GM TOP PRN (08:23)
[2018-01-22] MEDS: JUVEN PACKET PO SCH ×2 (08:24→20:27)
[2018-01-22] MEDS: PROMOD 30 ML DOSE PO SCH ×2 (08:24→20:27)
[2018-01-22] MEDS: COLLAGENASE 30 GM OINTMENT TOP SCH ×2 (08:24→20:00)
[2018-01-22] MEDS: FUROSEMIDE 40 MG TABLET PO SCH (08:25)
[2018-01-22] MEDS: HEPARIN 5000 UNIT/ML 1 ML VIAL SQ SCH ×2 (10:07→19:01)
[2018-01-22] MEDS ORDERED: NA CHLORIDE 0.9% 1,000 ML IV PRN (14:04)
--- NOTE | 2018-01-22 14:35 | FAST ---
SHIFT START DATE/TIME: 01/22/2018 07:00 (CDT) SHIFT END DATE/TIME: 01/22/2018 19:00 (CDT) NAME MARIBEL MIJARES DATE OF : 1965 DATE OF ADMISSION: 01/13/2018 05:31 (CDT) PHONE: AGE: 52 N# [id number] GENDER: Male ENCOUNTER PHYSICIAN: Dr. Cameron Malcolm M.D. ADMISSION DIAGNOSIS: - Amputation of Limb 05 - Bilateral Lower Limb Below the Knee (BK/BK) (05.7) Bilateral BKA. EATING: EATING - STEP 1: Does the patient require assistance when eating? Yes. EATING - STEP 2: Does the patient require the assistance of a helper? No, patient only requires an assistive device, O R s/he takes more than reasonable time to eat, OR there is a safety concern, OR s/he requires modifie d food consistency EATING - SCORE: 6-SRAVANTHI GROOMING: Activity did not occur on this shift GROOMING - SCORE: 0-UNK BATHING: Activity did not occur on this shift BATHING - SCORE: 0-UNK DRESSING - UPPER BODY: Activity did not occur on this shift ARTICLES SCORE Total number of steps: 0 DRESSING - UPPER BODY - SCORE: 0-UNK DRESSING - LOWER BODY: Activity did not occur on this shift ARTICLES SCORE Total number of steps: 0 DRESSING - LOWER BODY - SCORE: 0-UNK TOILETING: TOILETING - STEP 1: Does the patient require assistance with toileting? Yes. TOILETING - STEP 2: Does the patient require the assistance of a helper? Yes. TOILETING - STEP 3: How much assistance does the patient require from the helper? Hands-on assistance from the helper TOILETING - STEP 4: Of the 3 tasks: 1) Adjusting clothing prior to use, 2) Cleansing of perineal area, 3) Adjusting clot dinorah after use; How many tasks does the patient perform WITHOUT assistance of the helper? Three tasks with steadying assistance from the helper TOILETING - SCORE: 4-MIN BLADDER MANAGEMENT: BLADDER MANAGEMENT - STEP 1: Does the patient control the bladder completely and intentionally without equipment or devices or med ications, and is always continent? No. BLADDER MANAGEMENT - STEP 2: Does the patient require the assistance of a helper? No, patient requires and independently uses an a ssistive device, such as a urinal, bedpan, bedside commode, catheter, absorbent pad, or collecting de vice BLADDER MANAGEMENT - SCORE: 6-SRAVANTHI BOWEL MANAGEMENT: BOWEL MANAGEMENT - STEP 1: Does the patient control bowels completely and intentionally without equipment devices or medications AND is always continent? No. BOWEL MANAGEMENT - STEP 2: Does the patient require the assistance of a helper? No, patient requires and manages independently a n assistive device such as a bedpan, bedside commode, absorbent pad, incontinent device, or collectin g device BOWEL MANAGEMENT - SCORE: 6-SRAVANTHI TRANSFERS: BED, CHAIR, WHEELCHAIR: TRANSFERS: BED, CHAIR, WHEELCHAIR - STEP 1: Does the patient require assistance with bed, chair, or wheelchair transfers? Yes. TRANSFERS: BED, CHAIR, WHEELCHAIR - STEP 2: Does the patient require the assistance of a helper? Yes. TRANSFERS: BED, CHAIR, WHEELCHAIR - STEP 3: How much assistance does the patient require from the helper? Steadying/guiding assistance TRANSFERS: BED, CHAIR, WHEELCHAIR - SCORE: 4-MIN TRANSFERS: TOILET: TRANSFERS: TOILET - STEP 1: Does the patient require assistance with toilet transfers? Yes. TRANSFERS: TOILET - STEP 2: Does the patient require the assistance of a helper? Yes. TRANSFERS: TOILET - STEP 3: How much assistance does the patient require from the helper? Patient performs half or more of the tr ansferring tasks TRANSFERS: TOILET - STEP 4: Does the patient need only incidental help such as contact guard or steadying during toilet transfer? Yes. TRANSFERS: TOILET - SCORE: 4-MIN TRANSFERS: SHOWER: Activity did not occur on this shift TRANSFERS: SHOWER - SCORE: 0-UNK TRANSFERS: TUB: Activity did not occur on this shift TRANSFERS: TUB - SCORE: 0-UNK LOCOMOTION: WALK: Activity did not occur on this shift LOCOMOTION: WALK - SCORE: 0-UNK LOCOMOTION: WHEELCHAIR: Activity did not occur on this shift LOCOMOTION: WHEELCHAIR - SCORE: 0-UNK COMPREHENSION: COMPREHENSION - SCORE: 0-UNK EXPRESSION EXPRESSION - SCORE: 0-UNK SOCIAL INTERACTION: SOCIAL INTERACTION - SCORE: 0-UNK PROBLEM SOLVING: PROBLEM SOLVING - SCORE: 0-UNK MEMORY: MEMORY - SCORE: 0-UNK SIGNATURE PANEL: The following modified sections: Eating - Score, Grooming - Score, Bathing - Score, Dressing - Upper Body - Score, Dressing - Lower Body - Score, Toileting - Score, Bladder Management - Score, Bowel Man agement - Score, Transfers: Bed, Chair, Wheelchair - Score, Transfers: Toilet - Score, Transfers: Susie wer - Score, Transfers: Tub - Score, Locomotion: Walk - Score, Locomotion: Wheelchair - Score, Compre hension - Score, Expression - Score, Social Interaction - Score, Problem Solving - Score, Memory - Sc ore were [electronically] signed by Manpreet Kaur on MonJan 22 2018 14:34:10 GMT-0500 (Central Daylight Time)
[2018-01-22] MEDS ORDERED: ALBUMIN HUMAN 25% 50 ML IV SCH (15:00)
[2018-01-22] MEDS: EPOETIN ALFA 10,000 UNIT/ML VIAL IV SCH (15:02)
--- NOTE | 2018-01-22 15:12 | FAST ---
ENCOUNTER DATE AND TIME: 01/22/2018 08:00 (CDT) NAME MARIBEL MIJARES DATE OF : 1965 DATE OF ADMISSION: 01/13/2018 05:31 (CDT) PHONE: AGE: 52 SSN# [id number] GENDER: Male ENCOUNTER PHYSICIAN: Dr. Cameron Malcolm M.D. ADMISSION DIAGNOSIS: - Amputation of Limb 05 - Bilateral Lower Limb Below the Knee (BK/BK) (05.7) Bilateral BKA. EATING: Activity did not occur on this shift EATING - SCORE: 0-UNK GROOMING: Activity did not occur on this shift GROOMING - SCORE: 0-UNK BATHING: Activity did not occur on this shift BATHING - SCORE: 0-UNK DRESSING - UPPER BODY: Activity did not occur on this shift Patient is not dressing in public clothing ARTICLES SCORE Total number of steps: 0 DRESSING - UPPER BODY - SCORE: 0-UNK DRESSING - LOWER BODY: Activity did not occur on this shift Patient is not dressing in public clothing ARTICLES SCORE Total number of steps: 0 DRESSING - LOWER BODY - SCORE: 0-UNK TOILETING: Activity did not occur on this shift TOILETING - SCORE: 0-UNK BLADDER MANAGEMENT: Activity did not occur on this shift BLADDER MANAGEMENT - SCORE: 7-IND BOWEL MANAGEMENT: Activity did not occur on this shift BOWEL MANAGEMENT - SCORE: 7-IND TRANSFERS: BED, CHAIR, WHEELCHAIR: Activity did not occur on this shift TRANSFERS: BED, CHAIR, WHEELCHAIR - SCORE: 0-UNK TRANSFERS: TOILET: Activity did not occur on this shift TRANSFERS: TOILET - SCORE: 0-UNK TRANSFERS: SHOWER: Activity did not occur on this shift TRANSFERS: SHOWER - SCORE: 0-UNK TRANSFERS: TUB: Activity did not occur on this shift TRANSFERS: TUB - SCORE: 0-UNK LOCOMOTION: WALK: Activity did not occur on this shift LOCOMOTION: WALK - SCORE: 0-UNK LOCOMOTION: WHEELCHAIR: LOCOMOTION: WHEELCHAIR - STEP 1: Does the patient need help to go 150 feet in a wheelchair? No. LOCOMOTION: WHEELCHAIR - SCORE: 6-SRAVANTHI LOCOMOTION: STAIRS: Activity did not occur on this shift LOCOMOTION: STAIRS - SCORE: 0-UNK COMPREHENSION: COMPREHENSION - SCORE: 0-UNK EXPRESSION EXPRESSION - SCORE: 0-UNK SOCIAL INTERACTION: SOCIAL INTERACTION - SCORE: 0-UNK PROBLEM SOLVING: PROBLEM SOLVING - SCORE: 0-UNK MEMORY: MEMORY - SCORE: 0-UNK SIGNATURE PANEL: The following modified sections: Transfers: Bed, Chair, Wheelchair - Score, Transfers: Toilet - Score , Locomotion: Walk - Score, Locomotion: Wheelchair - Score, Locomotion: Stairs - Score were [electron ically] signed by Harvinder Sanchez PTA on MonJan 22 2018 15:11:31 T-0500 (Central Daylight Time)
--- NOTE | 2018-01-22 15:37 | FAST ---
ENCOUNTER DATE AND TIME: 01/22/2018 08:00 (CDT) NAME MARIBEL MIJARES DATE OF : 1965 DATE OF ADMISSION: 01/13/2018 05:31 (CDT) PHONE: AGE: 52 N# [id number] GENDER: Male ENCOUNTER PHYSICIAN: Dr. Cameron Malcolm M.D. ADMISSION DIAGNOSIS: - Amputation of Limb 05 - Bilateral Lower Limb Below the Knee (BK/BK) (05.7) Bilateral BKA. EATING: Activity did not occur on this shift EATING - SCORE: 0-UNK GROOMING: Comb/brush hair Wash, rinse, and dry face Wash, rinse, and dry hands GROOMING - STEP 1: Does the patient require assistance when grooming? No. GROOMING - SCORE: 7-IND BATHING: Abdomen Buttocks Chest Left arm Left lower leg and foot Left upper leg Perineal area Right arm Right lower leg and foot Right upper leg BATHING - STEP 1: Does the patient require assistance when bathing? Yes. BATHING - STEP 2: Does the patient require the assistance of a helper? Yes. BATHING - STEP 3: How much assistance does the patient require from the helper? Only supervision, cuing, coaxing, instr uctions, encouragement BATHING - SCORE: 5-SUP DRESSING - UPPER BODY: T-shirt/pullover shirt (four steps) ARTICLES SCORE Total number of steps: 4 DRESSING - UPPER BODY - STEP 1: Does the patient require help when dressing above the waist? No. DRESSING - UPPER BODY - SCORE: 7-IND DRESSING - LOWER BODY: Elastic waist pants (three steps) Underwear (three steps) ARTICLES SCORE Total number of steps: 6 DRESSING - LOWER BODY - STEP 1: Does the patient require help when dressing below the waist? Yes. DRESSING - LOWER BODY - STEP 2: Does the patient require the assistance of a helper? Yes. DRESSING - LOWER BODY - STEP 3: Does the helper touch the patient while dressing? No. DRESSING - LOWER BODY - SCORE: 5-SUP TOILETING: Activity did not occur on this shift TOILETING - SCORE: 0-UNK BLADDER MANAGEMENT: Activity did not occur on this shift BLADDER MANAGEMENT - SCORE: 7-IND BOWEL MANAGEMENT: Activity did not occur on this shift BOWEL MANAGEMENT - SCORE: 7-IND TRANSFERS: BED, CHAIR, WHEELCHAIR: Activity did not occur on this shift TRANSFERS: BED, CHAIR, WHEELCHAIR - SCORE: 0-UNK TRANSFERS: TOILET: Activity did not occur on this shift TRANSFERS: TOILET - SCORE: 0-UNK TRANSFERS: SHOWER: Activity did not occur on this shift TRANSFERS: SHOWER - SCORE: 0-UNK TRANSFERS: TUB: TRANSFERS: TUB - STEP 1: Does the patient require assistance with tub transfers? Yes. TRANSFERS: TUB - STEP 2: Does the patient require the assistance of a helper? Yes. TRANSFERS: TUB - STEP 3: How much assistance does the patient require from the helper? Only supervision, cuing, coaxing, or he lp to set out transfer equipment or to lock brakes and/or lift foot rests TRANSFERS: TUB - SCORE: 5-SUP LOCOMOTION: WALK: Activity did not occur on this shift LOCOMOTION: WALK - SCORE: 0-UNK LOCOMOTION: WHEELCHAIR: Activity did not occur on this shift LOCOMOTION: WHEELCHAIR - SCORE: 0-UNK LOCOMOTION: STAIRS: Activity did not occur on this shift LOCOMOTION: STAIRS - SCORE: 0-UNK COMPREHENSION: COMPREHENSION - STEP 1: Does the patient require help to understand complex and abstract ideas (such as current events, finan caitlyn, discharge planning, medical issues, relationships, etc)? No. COMPREHENSION - STEP 2: Does the patient need extra time, require an assistive device (such as glasses, hearing aids, or an a ugmentative communication system), OR does s/he have mild difficulty expressing complex and abstract ideas (including mild dysarthria or mild word-finding problems)? No. COMPREHENSION - SCORE: 7-IND EXPRESSION EXPRESSION: TYPE: Non-Vocal EXPRESSION - STEP 1: Does the patient require help expressing complex and abstract ideas (such as current events, finances , discharge planning, medical issues, relationships, etc)? No. EXPRESSION - STEP 2: Does the patient need extra time, require an assistive device (such as augmentive communication syste m or a communication board), OR does s/he have mild difficulty expressing complex and abstract ideas (including mild dysarthria or mild word-find problems)? No. EXPRESSION - SCORE: 7-IND SOCIAL INTERACTION: SOCIAL INTERACTION - STEP 1: Does the patient require a helper to interact with others in social and therapeutic situations? No. SOCIAL INTERACTION - STEP 2: Does the patient need extra time in social situations, OR does s/he interact with staff, other patien ts, and family members ONLY in structured environments, OR does s/he require medication for social in teraction? No. SOCIAL INTERACTION - SCORE: 7-IND PROBLEM SOLVING: PROBLEM SOLVING - STEP 1: Does the patient need help to solve complex problems such as managing a checking account or confronti ng interpersonal problems? No. PROBLEM SOLVING - STEP 2: Does the patient require extra time to make decisions or solve problems, OR does s/he have slight dif ficulty reading, initiating, or self-correcting in unfamiliar situations? No. PROBLEM SOLVING - SCORE: 7-IND MEMORY: MEMORY - STEP 1: Does the patient need help to remember frequently encountered people, daily routines, and executing r equests? No. MEMORY - STEP 2: Does the patient have slight difficulty recognizing frequently encountered people, daily routines, or executing requests without the need for repetition or using self-initiated or environmental cues to remember? No. MEMORY - SCORE: 7-IND SIGNATURE PANEL: The following modified sections: Eating - Score, Grooming - Score, Bathing - Score, Dressing - Upper Body - Score, Dressing - Lower Body - Score, Toileting - Score, Transfers: Bed, Chair, Wheelchair - S core, Transfers: Toilet - Score, Transfers: Shower - Score, Transfers: Tub - Score, Comprehension - S core, Expression - Score, Social Interaction - Score, Problem Solving - Score, Memory - Score were [e lectronically] signed by RAMON Hernández on MonJan 22 2018 15:35:43 T-0500 (Formerly [facility])
--- NOTE | 2018-01-22 18:23 | R.PN ---
ENCOUNTER DATE AND TIME: 01/22/2018 18:20 (CDT) NAME MARIBEL MIJARES DATE OF : 1965 DATE OF ADMISSION: 01/13/2018 05:31 (CDT) Bilateral BKACHIEF COMPLAINT: Bilateral below the knee amputations. SUBJECTIVE: Pt denied any Shortness of Breath. Pt denied any depression. Bed mobility done with modified independence. Ambulated 260' with contact guard assistance using a rolling walker. Propelled wheelchair 250' with s tandby assistance. Speech expression and comprehension is at modified independence. Toilet and tub tr ansfer with modified independence. VITAL SIGNS Temperature: 98.0 F SBP/DBP: 149/60 Pulse: 62 Resp: 14 Self-propelled wheelchair 1000' with modified independence. MEDICATION ALLERGIES: CLINDAMYCIN ENVIRONMENTAL ALLERGIES: None Known - Substance Allergies None Known - Other Allergies None Known CONSULT: Perform Consult Certified Prosthetic for prosthesis construction NURSING: - Shower allowing shower - Lab Results blood Sugar Check ACHS - Skin care per protocol PRECAUTIONS: - Fall Precaution Bed and chair alarm ACTIVITIES OOB only with supervision THERAPIES: - Orthotics/Prosthetics Prosthetic Evaluation. - Occupational Therapy Evaluate and Treat. - Physical Therapy Evaluate and Treat. PHYSICAL EXAM - Gen Alert and awake Lying in bed No apparent distress Oriented to: person, time, and place - Skin left lower extremity incisions intact Normacephalic - Eyes No abnormalities - ENMT No abnormalities - Neck No abnormalities - CVS RRR - Chest Clear - Resp Clear to auscultation - Abd Soft - GI Non distended Deferred - No abnormalities - Ext No significant edema. - MSK No Stiffness - Neuro Incoordination and left leg weakness. - Psych No abnormalities ASSESSMENT: Pt. is a 52 yo Right-handed male.On 12/26/2017 he was admitted to [facility] with diagnosis Bilateral BKA.His impairment category is Amputation of Limb 05 - Bilateral Low er Limb Below the Knee (BK/BK) (05.7).Pre-morbidly, Pt. was independent/mod-I in Sphincter Control, T ransfers Control, Communication, Social Cognition, Self-Care, and Locomotion; and he had good Sphinct er Control.Currently, he has deficits of Safety Awareness, Transfers Control, Balance, Locomotion, En durance, and Self-Care.Pt. is now referred to [facility] for acute in-patient rehabilitation in order to maximize patient's functional independence in activities of daily living, strength, ROM, and mobility.- Rehab Goal Patient has realistic goal of being discharged at assistance level 6-Sharon to reside at Home with Fam jacqueline/Relatives. MDM/PLAN: - Diet Type Continue Regular - Physical Therapy Gait dysfunction - to improve, our physical therapists will perform initial evaluation of pt's statu s upon admission and devise an individualized program for Gait Training, and Wheel Chair mobility Inability to transfer - to improve, our physical therapists will perform initial evaluation of pt's status upon admission and devise an individualized program for Bed mobility Need for home safety evaluation - to improve, our physical therapists will perform initial evaluatio n of pt's status upon admission and devise an individualized program for Home Evaluation Need in caregiver upon discharge - to improve, our physical therapists will perform initial evaluati on of pt's status upon admission and devise an individualized program for Caregiver Training New precaution - to improve, our physical therapists will perform initial evaluation of pt's status upon admission and devise an individualized program for Patient precaution education Edema - to improve, our physical therapists will perform initial evaluation of pt's status upon admi ssion and devise an individualized program for Elevation Training, and Lymphedema Therapy Poor balance - to improve, our physical therapists will perform initial evaluation of pt's status up on admission and devise an individualized program for Balance Training Poor endurance - to improve, our physical therapists will perform initial evaluation of pt's status upon admission and devise an individualized program for Endurance Training Weakness - to improve, our physical therapists will perform initial evaluation of pt's status upon a dmission and devise an individualized program for Aquatic Therapy, Neuromuscular Reeducation, and Str engthening Achieving independence - to improve, our physical therapists will perform initial evaluation of pt's status upon admission and devise an individualized program for Community Reintegration Activities - Diet - Liquid Texture Continue Regular - Tube Feed Continue N/A - Lab Results blood Sugar Check ACHS - Weight Bearing Precaution TTWB left LE - Fall Precaution Bed and chair alarm - Skin care per protocol - N/A Perform Consult Certified Prosthetic for prosthesis construction - Diet - Solid Texture Continue Regular - Shower allowing shower - Occupational Therapy ADL deficits - to improve, our occupation therapists will perform initial evaluation of pt's status upon admission and devise an individualized program for Bathing, Bed mobility, Community Reintegratio n, Cooking, Dressing, Eating, Fine Motor Skills, Grooming, Homemaking, Kitchen Mobility, Laundry, Pat ient Education, Safety Awareness, Splinting - Positioning, Transfers(Toilet, Tub, Shower), and Wheel Chair Management Need for health care / medical job titles - to improve, our occupation therapists will perform initial evaluation of pt's status upon admission and devise an individualized program for Caregiver Training Weakness - to improve, our occupation therapists will perform initial evaluation of pt's status upon admission and devise an individualized program for Aquatic Therapy, Balance, Endurance, UE ROM, and UE strengthening FUNCTIONAL STATUS: UPDATED AT WEEKLY TEAM CONFERENCE - Bladder Same accident frequency: 7-Ind - No accidents in the past 7 days - Bowel Same accident frequency: 7-Ind - No accidents in the past 7 days - Walking Same score based on distance walked: 0(N/A) - Wheelchair Same score based on distance traveled: 0(N/A) FUNCTIONAL STATUS: - Self-Care A. Eating Ind B. Grooming Ind C. Bathing sup D. Dressing - Upper sup E. Dressing - Lower Vinny F. Toileting Vinny - Sphincter Control G: Bladder control Ind H: Bowel control Ind - Transfers Control I. Bed/Chair/Wheelchair Vinny J. Toilet Vinny K. Tub/Shower ADNO - Locomotion L. Walk/Wheelchair (C) Vinny L. Walk/Wheelchair (W) Vinny M. Stairs ADNO - Communication N. Comprehension (B) Sharon O. Expression (B) Sharon - Social Cognition P. Social Interaction Sharon Q. Problem Solving Sharon R. Memory Sharon - Endurance Fair - Balance Fair - Safety Awareness Fair CURRENT FUNC. DEFICITS: Safety Awareness, Transfers Control, Balance, Locomotion, Endurance, and Self-Care SIGNATURE PANEL: (CDT)
[2018-01-22] MEDS: RANITIDINE 150 MG TABLET PO SCH (20:27)
--- NOTE | 2018-01-22 23:00 | PN ---
Date of Progress Note: 01/22/2018 Chief Complaint: End-stage renal disease, on dialysis. Subjective: The patient has history of diabetes mellitus, diabetic kidney disease, severe peripheral vascular disease. He underwent BKA. The patient has been treated with dialysis 3 times per week. Volemia is in good control. The patient has hypoalbuminemia, malnutrition. He is tolerating p.o. in take and he has been on p.o. protein supplements. Review of Systems: Lungs: Denies PND or orthopnea. Cardiovascular: Denies chest pain or palpitation. Physical Examination: Lungs: Clear to auscultation bilaterally. Heart: S1, S2. Abdomen: Soft, benign. Extremities: Dressing in place. Impression And Plan: 1.End-stage renal disease. Dialysis is scheduled for today. Continue ultrafiltration with dialysis to control volemia. 2.Hypertension. Blood pressure controlled. Continue medication. 3.Renal osteodystrophy. Continue renal diet and binders. 4.Hypoalbuminemia. Encourage high protein intake. ELMER/MODL Voice ID: [id number] Report ID: [id number]
[2018-01-23] MEDS: hydrOXYzine HCl 25 MG TAB PO PRN ×2 (01:52→16:50)
--- NOTE | 2018-01-23 02:43 | FAST ---
SHIFT START DATE/TIME: 01/22/2018 19:00 (CDT) SHIFT END DATE/TIME: 01/23/2018 07:00 (CDT) NAME MARIBEL MIJARES DATE OF : 1965 DATE OF ADMISSION: 01/13/2018 05:31 (CDT) PHONE: AGE: 52 N# [id number] GENDER: Male ENCOUNTER PHYSICIAN: Dr. Cameron Malcolm M.D. ADMISSION DIAGNOSIS: - Amputation of Limb 05 - Bilateral Lower Limb Below the Knee (BK/BK) (05.7) Bilateral BKA. EATING: Activity did not occur on this shift EATING - SCORE: 0-UNK GROOMING: Activity did not occur on this shift GROOMING - SCORE: 0-UNK BATHING: Activity did not occur on this shift BATHING - SCORE: 0-UNK DRESSING - UPPER BODY: Activity did not occur on this shift ARTICLES SCORE Total number of steps: 0 DRESSING - UPPER BODY - SCORE: 0-UNK DRESSING - LOWER BODY: Activity did not occur on this shift ARTICLES SCORE Total number of steps: 0 DRESSING - LOWER BODY - SCORE: 0-UNK TOILETING: TOILETING - STEP 1: Does the patient require assistance with toileting? Yes. TOILETING - STEP 2: Does the patient require the assistance of a helper? Yes. TOILETING - STEP 3: How much assistance does the patient require from the helper? Hands-on assistance from the helper TOILETING - STEP 4: Of the 3 tasks: 1) Adjusting clothing prior to use, 2) Cleansing of perineal area, 3) Adjusting clot dinorah after use; How many tasks does the patient perform WITHOUT assistance of the helper? Three tasks with steadying assistance from the helper TOILETING - SCORE: 4-MIN BLADDER MANAGEMENT: BLADDER MANAGEMENT - STEP 1: Does the patient control the bladder completely and intentionally without equipment or devices or med ications, and is always continent? Yes. BLADDER MANAGEMENT - SCORE: 7-IND BLADDER MANAGEMENT - FREQUENCY OF ACCIDENTS: BLADDER MANAGEMENT(FA) - STEP 1: How many accidents has the patient had during the current shift? 0 BOWEL MANAGEMENT: BOWEL MANAGEMENT - STEP 1: Does the patient control bowels completely and intentionally without equipment devices or medications AND is always continent? Yes. BOWEL MANAGEMENT - SCORE: 7-IND BOWEL MANAGEMENT - FREQUENCY OF ACCIDENTS: BOWEL MANAGEMENT(FA) - STEP 1: How many accidents has the patient had during the current shift? 0 TRANSFERS: BED, CHAIR, WHEELCHAIR: TRANSFERS: BED, CHAIR, WHEELCHAIR - STEP 1: Does the patient require assistance with bed, chair, or wheelchair transfers? Yes. TRANSFERS: BED, CHAIR, WHEELCHAIR - STEP 2: Does the patient require the assistance of a helper? Yes. TRANSFERS: BED, CHAIR, WHEELCHAIR - STEP 3: How much assistance does the patient require from the helper? Lifting of the legs TRANSFERS: BED, CHAIR, WHEELCHAIR - STEP 4: How many legs does the patient require the helper to lift? both legs TRANSFERS: BED, CHAIR, WHEELCHAIR - SCORE: 3-MOD TRANSFERS: TOILET: TRANSFERS: TOILET - STEP 1: Does the patient require assistance with toilet transfers? Yes. TRANSFERS: TOILET - STEP 2: Does the patient require the assistance of a helper? Yes. TRANSFERS: TOILET - STEP 3: How much assistance does the patient require from the helper? Only supervision, cuing, coaxing, OR he lp to set out transfer equipment or to lock brakes and/or lift foot rests TRANSFERS: TOILET - SCORE: 5-SUP TRANSFERS: SHOWER: Activity did not occur on this shift TRANSFERS: SHOWER - SCORE: 0-UNK TRANSFERS: TUB: Activity did not occur on this shift TRANSFERS: TUB - SCORE: 0-UNK LOCOMOTION: WALK: Activity did not occur on this shift LOCOMOTION: WALK - SCORE: 0-UNK LOCOMOTION: WHEELCHAIR: Activity did not occur on this shift LOCOMOTION: WHEELCHAIR - SCORE: 0-UNK COMPREHENSION: COMPREHENSION: TYPE: Both COMPREHENSION - STEP 1: Does the patient require help to understand complex and abstract ideas (such as current events, finan caitlyn, discharge planning, medical issues, relationships, etc)? Yes. COMPREHENSION - STEP 2: Does the patient require help to understand questions or statements about basic needs or ideas (such as hunger, thirst, sleep, safety, daily schedule, room location, or discomfort) half or more of the t [place]? Yes. COMPREHENSION - STEP 3: Is the patient basically able to understand and respond appropriately and consistently? Yes. COMPREHENSION - SCORE: 2-MAX EXPRESSION EXPRESSION: TYPE: Both EXPRESSION - STEP 1: Does the patient require help expressing complex and abstract ideas (such as current events, finances , discharge planning, medical issues, relationships, etc)? Yes. EXPRESSION - STEP 2: Does the patient require help to express basic necessities or ideas (such as hunger, thirst, sleep, s afety, daily schedule, room location, or discomfort) half or more of the time? Yes. EXPRESSION - STEP 3: Is the patient basically unable to express or does s/he express inappropriately or inconsistently massimo pite prompting? No. EXPRESSION - SCORE: 2-MAX SOCIAL INTERACTION: SOCIAL INTERACTION - STEP 1: Does the patient require a helper to interact with others in social and therapeutic situations? Yes. SOCIAL INTERACTION - STEP 2: Does the patient interact appropriately half or more of the time? Yes. SOCIAL INTERACTION - STEP 3: How often does the patient need help to interact appropriately? Less than 10% of the time SOCIAL INTERACTION - SCORE: 5-SUP PROBLEM SOLVING: PROBLEM SOLVING - STEP 1: Does the patient need help to solve complex problems such as managing a checking account or confronti ng interpersonal problems? Yes. PROBLEM SOLVING - STEP 2: Does the patient solve basic routine problems half or more of the time? Yes. PROBLEM SOLVING - STEP 3: How often does the patient need help to solve basic routine problems? Less than 10% of the time PROBLEM SOLVING - SCORE: 5-SUP MEMORY: MEMORY - STEP 1: Does the patient need help to remember frequently encountered people, daily routines, and executing r equests? Yes. MEMORY - STEP 2: How often does the patient need help to remember frequently encountered people, daily routines, and e xecuting requests? Less than 10% of the time MEMORY - SCORE: 5-SUP SIGNATURE PANEL: The following modified sections: Eating - Score, Grooming - Score, Bathing - Score, Dressing - Upper Body - Score, Dressing - Lower Body - Score, Toileting - Score, Bladder Management - Score, Bowel Man agement - Score, Transfers: Bed, Chair, Wheelchair - Score, Transfers: Toilet - Score, Transfers: Susie wer - Score, Transfers: Tub - Score, Locomotion: Walk - Score, Locomotion: Wheelchair - Score, Compre hension - Score, Expression - Score, Social Interaction - Score, Problem Solving - Score, Memory - Sc ore were [electronically] signed by Yolanda Gomez on MonJan 23 2018 02:42:08 GMT-0500 (Central Day light Time)
[2018-01-23] MEDS: METOPROLOL TAR 25 MG TAB PO SCH (05:15)
[2018-01-23] MEDS: INSULIN -REGULAR HUMAN 50 UNIT/0.5 ML ML SQ SCH ×4 (07:30→20:08)
[2018-01-23] MEDS: JUVEN PACKET PO SCH ×2 (08:00→20:00)
[2018-01-23] MEDS: HEPARIN 5000 UNIT/ML 1 ML VIAL SQ SCH ×2 (08:00→19:01)
[2018-01-23] MEDS: PROMOD 30 ML DOSE PO SCH ×2 (08:00→20:00)
[2018-01-23] MEDS: LISINOPRIL 10 MG TAB PO SCH ×2 (08:03→20:58)
[2018-01-23] MEDS: SEVELAMER CARBONATE 800 MG TABLET PO SCH ×3 (08:03→16:50)
[2018-01-23] MEDS: CYANOCOBALAMIN 1,000 MCG TAB PO SCH (08:03)
[2018-01-23] MEDS: FE SULF/FA/VIT B COMP & C TAB PO SCH (08:03)
[2018-01-23] MEDS: FERROUS SULFATE 325 MG TAB PO SCH (08:04)
[2018-01-23] MEDS: CLOPIDOGREL 75 MG TABLET PO SCH (08:04)
[2018-01-23] MEDS: ASCORBIC ACID 500 MG TABLET PO SCH (08:04)
[2018-01-23] MEDS: FUROSEMIDE 40 MG TABLET PO SCH (08:04)
[2018-01-23] MEDS: HYDROCORTISONE 1 % CREAM 30GM TOP PRN (08:05)
[2018-01-23] MEDS: COLLAGENASE 30 GM OINTMENT TOP SCH ×2 (08:05→20:58)
[2018-01-23] MEDS: HYDROCODONE/APAP 5/325 MG TAB PO PRN (08:07)
--- NOTE | 2018-01-23 14:34 | FAST ---
SHIFT START DATE/TIME: 01/23/2018 07:00 (CDT) SHIFT END DATE/TIME: 01/23/2018 19:00 (CDT) NAME MARIBEL MIJARES DATE OF : 1965 DATE OF ADMISSION: 01/13/2018 05:31 (CDT) PHONE: AGE: 52 N# [id number] GENDER: Male ENCOUNTER PHYSICIAN: Dr. Cameron Malcolm M.D. ADMISSION DIAGNOSIS: - Amputation of Limb 05 - Bilateral Lower Limb Below the Knee (BK/BK) (05.7) Bilateral BKA. EATING: EATING - STEP 1: Does the patient require assistance when eating? Yes. EATING - STEP 2: Does the patient require the assistance of a helper? No, patient only requires an assistive device, O R s/he takes more than reasonable time to eat, OR there is a safety concern, OR s/he requires modifie d food consistency EATING - SCORE: 6-SRAVANTHI GROOMING: Activity did not occur on this shift GROOMING - SCORE: 0-UNK BATHING: Activity did not occur on this shift BATHING - SCORE: 0-UNK DRESSING - UPPER BODY: Activity did not occur on this shift ARTICLES SCORE Total number of steps: 0 DRESSING - UPPER BODY - SCORE: 0-UNK DRESSING - LOWER BODY: Activity did not occur on this shift ARTICLES SCORE Total number of steps: 0 DRESSING - LOWER BODY - SCORE: 0-UNK TOILETING: TOILETING - STEP 1: Does the patient require assistance with toileting? Yes. TOILETING - STEP 2: Does the patient require the assistance of a helper? Yes. TOILETING - STEP 3: How much assistance does the patient require from the helper? Only supervision TOILETING - SCORE: 5-SUP BLADDER MANAGEMENT: Patient is on renal dialysis or peritoneal dialysis and no voiding activity BLADDER MANAGEMENT - SCORE: 7-IND BOWEL MANAGEMENT: Activity did not occur on this shift BOWEL MANAGEMENT - SCORE: 7-IND TRANSFERS: BED, CHAIR, WHEELCHAIR: TRANSFERS: BED, CHAIR, WHEELCHAIR - STEP 1: Does the patient require assistance with bed, chair, or wheelchair transfers? Yes. TRANSFERS: BED, CHAIR, WHEELCHAIR - STEP 2: Does the patient require the assistance of a helper? Yes. TRANSFERS: BED, CHAIR, WHEELCHAIR - STEP 3: How much assistance does the patient require from the helper? Steadying/guiding assistance TRANSFERS: BED, CHAIR, WHEELCHAIR - SCORE: 4-MIN TRANSFERS: TOILET: TRANSFERS: TOILET - STEP 1: Does the patient require assistance with toilet transfers? Yes. TRANSFERS: TOILET - STEP 2: Does the patient require the assistance of a helper? Yes. TRANSFERS: TOILET - STEP 3: How much assistance does the patient require from the helper? Patient performs half or more of the tr ansferring tasks TRANSFERS: TOILET - STEP 4: Does the patient need only incidental help such as contact guard or steadying during toilet transfer? Yes. TRANSFERS: TOILET - SCORE: 4-MIN TRANSFERS: SHOWER: Activity did not occur on this shift TRANSFERS: SHOWER - SCORE: 0-UNK TRANSFERS: TUB: Activity did not occur on this shift TRANSFERS: TUB - SCORE: 0-UNK LOCOMOTION: WALK: Activity did not occur on this shift LOCOMOTION: WALK - SCORE: 0-UNK LOCOMOTION: WHEELCHAIR: Activity did not occur on this shift LOCOMOTION: WHEELCHAIR - SCORE: 0-UNK COMPREHENSION: COMPREHENSION - SCORE: 0-UNK EXPRESSION EXPRESSION - SCORE: 0-UNK SOCIAL INTERACTION: SOCIAL INTERACTION - SCORE: 0-UNK PROBLEM SOLVING: PROBLEM SOLVING - SCORE: 0-UNK MEMORY: MEMORY - SCORE: 0-UNK SIGNATURE PANEL: The following modified sections: Eating - Score, Grooming - Score, Bathing - Score, Dressing - Upper Body - Score, Dressing - Lower Body - Score, Toileting - Score, Bladder Management - Score, Bowel Man agement - Score, Transfers: Bed, Chair, Wheelchair - Score, Transfers: Toilet - Score, Transfers: Susie wer - Score, Transfers: Tub - Score, Locomotion: Walk - Score, Locomotion: Wheelchair - Score, Compre hension - Score, Expression - Score, Social Interaction - Score, Problem Solving - Score, Memory - Sc ore were [electronically] signed by Manpreet Kaur on MonJan 23 2018 14:33:55 GMT-0500 (Central Daylight Time)
--- NOTE | 2018-01-23 14:49 | FAST ---
ENCOUNTER DATE AND TIME: 01/23/2018 08:00 (CDT) NAME MARIBEL MIJARES DATE OF : 1965 DATE OF ADMISSION: 01/13/2018 05:31 (CDT) PHONE: AGE: 52 SSN# [id number] GENDER: Male ENCOUNTER PHYSICIAN: Dr. Cameron Malcolm M.D. ADMISSION DIAGNOSIS: - Amputation of Limb 05 - Bilateral Lower Limb Below the Knee (BK/BK) (05.7) Bilateral BKA. EATING: Activity did not occur on this shift EATING - SCORE: 0-UNK GROOMING: Activity did not occur on this shift GROOMING - SCORE: 0-UNK BATHING: Activity did not occur on this shift BATHING - SCORE: 0-UNK DRESSING - UPPER BODY: Activity did not occur on this shift Patient is not dressing in public clothing ARTICLES SCORE Total number of steps: 0 DRESSING - UPPER BODY - SCORE: 0-UNK DRESSING - LOWER BODY: Activity did not occur on this shift Patient is not dressing in public clothing ARTICLES SCORE Total number of steps: 0 DRESSING - LOWER BODY - SCORE: 0-UNK TOILETING: Activity did not occur on this shift TOILETING - SCORE: 0-UNK BLADDER MANAGEMENT: Activity did not occur on this shift BLADDER MANAGEMENT - SCORE: 7-IND BOWEL MANAGEMENT: Activity did not occur on this shift BOWEL MANAGEMENT - SCORE: 7-IND TRANSFERS: BED, CHAIR, WHEELCHAIR: TRANSFERS: BED, CHAIR, WHEELCHAIR - STEP 1: Does the patient require assistance with bed, chair, or wheelchair transfers? Yes. TRANSFERS: BED, CHAIR, WHEELCHAIR - STEP 2: Does the patient require the assistance of a helper? No. Patient only requires an assistive device fo r bed, chair, wheelchair transfers such as a sliding board, grab bar, or brace, OR s/he takes more th an reasonable time, OR there is a safety concern when s/he performs the transfers TRANSFERS: BED, CHAIR, WHEELCHAIR - SCORE: 6-SRAVANTHI TRANSFERS: TOILET: Activity did not occur on this shift TRANSFERS: TOILET - SCORE: 0-UNK TRANSFERS: SHOWER: Activity did not occur on this shift TRANSFERS: SHOWER - SCORE: 0-UNK TRANSFERS: TUB: Activity did not occur on this shift TRANSFERS: TUB - SCORE: 0-UNK LOCOMOTION: WALK: Activity did not occur on this shift LOCOMOTION: WALK - SCORE: 0-UNK LOCOMOTION: WHEELCHAIR: LOCOMOTION: WHEELCHAIR - STEP 1: Does the patient need help to go 150 feet in a wheelchair? No. LOCOMOTION: WHEELCHAIR - SCORE: 6-SRAVANTHI LOCOMOTION: STAIRS: Activity did not occur on this shift LOCOMOTION: STAIRS - SCORE: 0-UNK COMPREHENSION: COMPREHENSION - SCORE: 0-UNK EXPRESSION EXPRESSION - SCORE: 0-UNK SOCIAL INTERACTION: SOCIAL INTERACTION - SCORE: 0-UNK PROBLEM SOLVING: PROBLEM SOLVING - SCORE: 0-UNK MEMORY: MEMORY - SCORE: 0-UNK SIGNATURE PANEL: The following modified sections: Transfers: Bed, Chair, Wheelchair - Score, Transfers: Toilet - Score , Locomotion: Walk - Score, Locomotion: Wheelchair - Score, Locomotion: Stairs - Score were [ryley [email or web address]] signed by Harvinder Sanchez PTA on MonJan 23 2018 14:49:22 T-0500 (Central Daylight Time)
[2018-01-23] MEDS: TRAMADOL HCL 50 MG TAB PO PRN (16:50)
--- NOTE | 2018-01-23 20:19 | R.PN ---
ENCOUNTER DATE AND TIME: 01/23/2018 20:17 (CDT) NAME MARIBEL MIJARES DATE OF : 1965 DATE OF ADMISSION: 01/13/2018 05:31 (CDT) Bilateral BKACHIEF COMPLAINT: Bilateral below the knee amputations. SUBJECTIVE: Pt denied any Shortness of Breath. Pt denied any depression. Bed mobility done with modified independence. Ambulated 260' with contact guard assistance using a rolling walker. Propelled wheelchair 250' with s tandby assistance. Speech expression and comprehension is at modified independence. Toilet and tub tr ansfer with modified independence. No new complaints. Doing well with physical and occupational therapy. VITAL SIGNS Temperature: 98.0 F SBP/DBP: 149/60 Pulse: 62 Resp: 14 Self-propelled wheelchair 1000' with modified independence. MEDICATION ALLERGIES: CLINDAMYCIN ENVIRONMENTAL ALLERGIES: None Known - Substance Allergies None Known - Other Allergies None Known CONSULT: Perform Consult Certified Prosthetic for prosthesis construction NURSING: - Shower allowing shower - Lab Results blood Sugar Check ACHS - Skin care per protocol PRECAUTIONS: - Fall Precaution Bed and chair alarm ACTIVITIES OOB only with supervision THERAPIES: - Orthotics/Prosthetics Prosthetic Evaluation. - Occupational Therapy Evaluate and Treat. - Physical Therapy Evaluate and Treat. PHYSICAL EXAM - Gen Alert and awake Lying in bed No apparent distress Oriented to: person, time, and place - Skin left lower extremity incisions intact Normacephalic - Eyes No abnormalities - ENMT No abnormalities - Neck No abnormalities - CVS RRR - Chest Clear - Resp Clear to auscultation - Abd Soft - GI Non distended Deferred - No abnormalities - Ext No significant edema. - MSK No Stiffness - Neuro Incoordination and left leg weakness. - Psych No abnormalities ASSESSMENT: Pt. is a 52 yo Right-handed male.On 12/26/2017 he was admitted to [facility] with diagnosis Bilateral BKA.His impairment category is Amputation of Limb 05 - Bilateral Low er Limb Below the Knee (BK/BK) (05.7).Pre-morbidly, Pt. was independent/mod-I in Sphincter Control, T ransfers Control, Communication, Social Cognition, Self-Care, and Locomotion; and he had good Sphinct er Control.Currently, he has deficits of Safety Awareness, Transfers Control, Balance, Locomotion, En durance, and Self-Care.Pt. is now referred to [facility] for acute in-patient rehabilitation in order to maximize patient's functional independence in activities of daily living, strength, ROM, and mobility.- Rehab Goal Patient has realistic goal of being discharged at assistance level 6-Sharon to reside at Home with Fam jacqueline/Relatives. MDM/PLAN: - Diet Type Continue Regular - Physical Therapy Gait dysfunction - to improve, our physical therapists will perform initial evaluation of pt's statu s upon admission and devise an individualized program for Gait Training, and Wheel Chair mobility Inability to transfer - to improve, our physical therapists will perform initial evaluation of pt's status upon admission and devise an individualized program for Bed mobility Need for home safety evaluation - to improve, our physical therapists will perform initial evaluatio n of pt's status upon admission and devise an individualized program for Home Evaluation Need in caregiver upon discharge - to improve, our physical therapists will perform initial evaluati on of pt's status upon admission and devise an individualized program for Caregiver Training New precaution - to improve, our physical therapists will perform initial evaluation of pt's status upon admission and devise an individualized program for Patient precaution education Edema - to improve, our physical therapists will perform initial evaluation of pt's status upon admi ssion and devise an individualized program for Elevation Training, and Lymphedema Therapy Poor balance - to improve, our physical therapists will perform initial evaluation of pt's status up on admission and devise an individualized program for Balance Training Poor endurance - to improve, our physical therapists will perform initial evaluation of pt's status upon admission and devise an individualized program for Endurance Training Weakness - to improve, our physical therapists will perform initial evaluation of pt's status upon a dmission and devise an individualized program for Aquatic Therapy, Neuromuscular Reeducation, and Str engthening Achieving independence - to improve, our physical therapists will perform initial evaluation of pt's status upon admission and devise an individualized program for Community Reintegration Activities - Diet - Liquid Texture Continue Regular - Tube Feed Continue N/A - Lab Results blood Sugar Check ACHS - Weight Bearing Precaution TTWB left LE - Fall Precaution Bed and chair alarm - Skin care per protocol - N/A Perform Consult Certified Prosthetic for prosthesis construction - Diet - Solid Texture Continue Regular - Shower allowing shower - Occupational Therapy ADL deficits - to improve, our occupation therapists will perform initial evaluation of pt's status upon admission and devise an individualized program for Bathing, Bed mobility, Community Reintegratio n, Cooking, Dressing, Eating, Fine Motor Skills, Grooming, Homemaking, Kitchen Mobility, Laundry, Pat ient Education, Safety Awareness, Splinting - Positioning, Transfers(Toilet, Tub, Shower), and Wheel Chair Management Need for out of school hours care worker - to improve, our occupation therapists will perform initial evaluation of pt's status upon admission and devise an individualized program for Caregiver Training Weakness - to improve, our occupation therapists will perform initial evaluation of pt's status upon admission and devise an individualized program for Aquatic Therapy, Balance, Endurance, UE ROM, and UE strengthening FUNCTIONAL STATUS: UPDATED AT WEEKLY TEAM CONFERENCE - Bladder Same accident frequency: 7-Ind - No accidents in the past 7 days - Bowel Same accident frequency: 7-Ind - No accidents in the past 7 days - Walking Same score based on distance walked: 0(N/A) - Wheelchair Same score based on distance traveled: 0(N/A) FUNCTIONAL STATUS: - Self-Care A. Eating Ind B. Grooming Ind C. Bathing sup D. Dressing - Upper sup E. Dressing - Lower Vinny F. Toileting Vinny - Sphincter Control G: Bladder control Ind H: Bowel control Ind - Transfers Control I. Bed/Chair/Wheelchair Vinny J. Toilet Vinny K. Tub/Shower ADNO - Locomotion L. Walk/Wheelchair (C) Vinny L. Walk/Wheelchair (W) Vinny M. Stairs ADNO - Communication N. Comprehension (B) Sharon O. Expression (B) Sharon - Social Cognition P. Social Interaction Sharon Q. Problem Solving Sharon R. Memory Sharon - Endurance Fair - Balance Fair - Safety Awareness Fair CURRENT FUNC. DEFICITS: Safety Awareness, Transfers Control, Balance, Locomotion, Endurance, and Self-Care SIGNATURE PANEL: (CDT)
[2018-01-23] MEDS: ACYCLOVIR 400 MG TABLET PO SCH (20:57)
[2018-01-23] MEDS: RANITIDINE 150 MG TABLET PO SCH (20:58)
--- NOTE | 2018-01-24 02:21 | FAST ---
SHIFT START DATE/TIME: 01/23/2018 19:00 (CDT) SHIFT END DATE/TIME: 01/24/2018 07:00 (CDT) NAME MARIBEL MIJARES DATE OF : 1965 DATE OF ADMISSION: 01/13/2018 05:31 (CDT) PHONE: AGE: 52 N# [id number] GENDER: Male ENCOUNTER PHYSICIAN: Dr. Cameron Malcolm M.D. ADMISSION DIAGNOSIS: - Amputation of Limb 05 - Bilateral Lower Limb Below the Knee (BK/BK) (05.7) Bilateral BKA. EATING: Activity did not occur on this shift EATING - SCORE: 0-UNK GROOMING: Activity did not occur on this shift GROOMING - SCORE: 0-UNK BATHING: Activity did not occur on this shift BATHING - SCORE: 0-UNK DRESSING - UPPER BODY: Activity did not occur on this shift ARTICLES SCORE Total number of steps: 0 DRESSING - UPPER BODY - SCORE: 0-UNK DRESSING - LOWER BODY: Activity did not occur on this shift ARTICLES SCORE Total number of steps: 0 DRESSING - LOWER BODY - SCORE: 0-UNK TOILETING: Activity did not occur on this shift TOILETING - SCORE: 0-UNK BLADDER MANAGEMENT: Patient is on renal dialysis or peritoneal dialysis and no voiding activity BLADDER MANAGEMENT - SCORE: 7-IND BOWEL MANAGEMENT: Activity did not occur on this shift BOWEL MANAGEMENT - SCORE: 7-IND TRANSFERS: BED, CHAIR, WHEELCHAIR: Activity did not occur on this shift TRANSFERS: BED, CHAIR, WHEELCHAIR - SCORE: 0-UNK TRANSFERS: TOILET: Activity did not occur on this shift TRANSFERS: TOILET - SCORE: 0-UNK TRANSFERS: SHOWER: Activity did not occur on this shift TRANSFERS: SHOWER - SCORE: 0-UNK TRANSFERS: TUB: Activity did not occur on this shift TRANSFERS: TUB - SCORE: 0-UNK LOCOMOTION: WALK: Activity did not occur on this shift LOCOMOTION: WALK - SCORE: 0-UNK LOCOMOTION: WHEELCHAIR: Activity did not occur on this shift LOCOMOTION: WHEELCHAIR - SCORE: 0-UNK COMPREHENSION: COMPREHENSION - STEP 1: Does the patient require help to understand complex and abstract ideas (such as current events, finan caitlyn, discharge planning, medical issues, relationships, etc)? Yes. COMPREHENSION - STEP 2: Does the patient require help to understand questions or statements about basic needs or ideas (such as hunger, thirst, sleep, safety, daily schedule, room location, or discomfort) half or more of the t [place]? Yes. COMPREHENSION - STEP 3: Is the patient basically able to understand and respond appropriately and consistently? Yes. COMPREHENSION - SCORE: 2-MAX EXPRESSION EXPRESSION - STEP 1: Does the patient require help expressing complex and abstract ideas (such as current events, finances , discharge planning, medical issues, relationships, etc)? Yes. EXPRESSION - STEP 2: Does the patient require help to express basic necessities or ideas (such as hunger, thirst, sleep, s afety, daily schedule, room location, or discomfort) half or more of the time? Yes. EXPRESSION - STEP 3: Is the patient basically unable to express or does s/he express inappropriately or inconsistently massimo pite prompting? No. EXPRESSION - SCORE: 2-MAX SOCIAL INTERACTION: SOCIAL INTERACTION - STEP 1: Does the patient require a helper to interact with others in social and therapeutic situations? Yes. SOCIAL INTERACTION - STEP 2: Does the patient interact appropriately half or more of the time? Yes. SOCIAL INTERACTION - STEP 3: How often does the patient need help to interact appropriately? Less than 10% of the time SOCIAL INTERACTION - SCORE: 5-SUP PROBLEM SOLVING: PROBLEM SOLVING - STEP 1: Does the patient need help to solve complex problems such as managing a checking account or confronti ng interpersonal problems? Yes. PROBLEM SOLVING - STEP 2: Does the patient solve basic routine problems half or more of the time? Yes. PROBLEM SOLVING - STEP 3: How often does the patient need help to solve basic routine problems? Less than 10% of the time PROBLEM SOLVING - SCORE: 5-SUP MEMORY: MEMORY - STEP 1: Does the patient need help to remember frequently encountered people, daily routines, and executing r equests? Yes. MEMORY - STEP 2: How often does the patient need help to remember frequently encountered people, daily routines, and e xecuting requests? 10% - 24% of the time MEMORY - SCORE: 4-MIN SIGNATURE PANEL: The following modified sections: Eating - Score, Grooming - Score, Bathing - Score, Dressing - Upper Body - Score, Dressing - Lower Body - Score, Toileting - Score, Bladder Management - Score, Bowel Man agement - Score, Transfers: Bed, Chair, Wheelchair - Score, Transfers: Toilet - Score, Transfers: Susie wer - Score, Transfers: Tub - Score, Locomotion: Walk - Score, Locomotion: Wheelchair - Score, Compre hension - Score, Expression - Score, Social Interaction - Score, Problem Solving - Score, Memory - Sc ore were [electronically] signed by Alisson Navarro RN on MonJan 24 2018 02:20:54 T-0500 ([facility] hospital Time)
[2018-01-24] MEDS: HYDROCODONE/APAP 5/325 MG TAB PO PRN ×4 (05:02→20:47)
[2018-01-24] MEDS: METOPROLOL TAR 25 MG TAB PO SCH (05:02)
[2018-01-24] MEDS: INSULIN -REGULAR HUMAN 50 UNIT/0.5 ML ML SQ SCH ×4 (07:30→20:48)
[2018-01-24] MEDS: LISINOPRIL 10 MG TAB PO SCH ×2 (08:00→18:09)
[2018-01-24] MEDS: HEPARIN 5000 UNIT/ML 1 ML VIAL SQ SCH ×2 (08:00→20:00)
[2018-01-24] MEDS: COLLAGENASE 30 GM OINTMENT TOP SCH ×2 (08:00→22:00)
[2018-01-24] MEDS: CYANOCOBALAMIN 1,000 MCG TAB PO SCH (08:01)
[2018-01-24] MEDS: SEVELAMER CARBONATE 800 MG TABLET PO SCH ×3 (08:01→17:21)
[2018-01-24] MEDS: ASCORBIC ACID 500 MG TABLET PO SCH (08:01)
[2018-01-24] MEDS: FE SULF/FA/VIT B COMP & C TAB PO SCH (08:01)
[2018-01-24] MEDS: CLOPIDOGREL 75 MG TABLET PO SCH (08:02)
[2018-01-24] MEDS: FUROSEMIDE 40 MG TABLET PO SCH (08:02)
[2018-01-24] MEDS: FERROUS SULFATE 325 MG TAB PO SCH (08:02)
[2018-01-24] MEDS: JUVEN PACKET PO SCH ×2 (08:03→20:00)
[2018-01-24] MEDS: PROMOD 30 ML DOSE PO SCH ×2 (08:04→20:49)
[2018-01-24] MEDS: GABAPENTIN 100 MG CAP PO SCH ×2 (09:09→20:48)
[2018-01-24] MEDS: ACYCLOVIR 400 MG TABLET PO SCH ×3 (09:11→20:48)
--- NOTE | 2018-01-24 09:11 | FAST ---
SHIFT START DATE/TIME: 01/24/2018 07:00 (CDT) SHIFT END DATE/TIME: 01/24/2018 19:00 (CDT) NAME MARIBEL MIJARES DATE OF : 1965 DATE OF ADMISSION: 01/13/2018 05:31 (CDT) PHONE: AGE: 52 N# [id number] GENDER: Male ENCOUNTER PHYSICIAN: Dr. Cameron Malcolm M.D. ADMISSION DIAGNOSIS: - Amputation of Limb 05 - Bilateral Lower Limb Below the Knee (BK/BK) (05.7) Bilateral BKA. EATING: EATING - STEP 1: Does the patient require assistance when eating? No. EATING - SCORE: 7-IND GROOMING: Activity did not occur on this shift GROOMING - SCORE: 0-UNK BATHING: Activity did not occur on this shift BATHING - SCORE: 0-UNK DRESSING - UPPER BODY: Activity did not occur on this shift ARTICLES SCORE Total number of steps: 0 DRESSING - UPPER BODY - SCORE: 0-UNK DRESSING - LOWER BODY: Activity did not occur on this shift ARTICLES SCORE Total number of steps: 0 DRESSING - LOWER BODY - SCORE: 0-UNK TOILETING: Activity did not occur on this shift TOILETING - SCORE: 0-UNK BLADDER MANAGEMENT: Patient is on renal dialysis or peritoneal dialysis and no voiding activity BLADDER MANAGEMENT - SCORE: 7-IND BLADDER MANAGEMENT - FREQUENCY OF ACCIDENTS: BLADDER MANAGEMENT(FA) - STEP 1: How many accidents has the patient had during the current shift? 0 BOWEL MANAGEMENT: BOWEL MANAGEMENT - STEP 1: Does the patient control bowels completely and intentionally without equipment devices or medications AND is always continent? Yes. BOWEL MANAGEMENT - SCORE: 7-IND BOWEL MANAGEMENT - FREQUENCY OF ACCIDENTS: BOWEL MANAGEMENT(FA) - STEP 1: How many accidents has the patient had during the current shift? 0 TRANSFERS: BED, CHAIR, WHEELCHAIR: TRANSFERS: BED, CHAIR, WHEELCHAIR - STEP 1: Does the patient require assistance with bed, chair, or wheelchair transfers? Yes. TRANSFERS: BED, CHAIR, WHEELCHAIR - STEP 2: Does the patient require the assistance of a helper? Yes. TRANSFERS: BED, CHAIR, WHEELCHAIR - STEP 3: How much assistance does the patient require from the helper? Only supervision TRANSFERS: BED, CHAIR, WHEELCHAIR - SCORE: 5-SUP TRANSFERS: TOILET: TRANSFERS: TOILET - STEP 1: Does the patient require assistance with toilet transfers? Yes. TRANSFERS: TOILET - STEP 2: Does the patient require the assistance of a helper? Yes. TRANSFERS: TOILET - STEP 3: How much assistance does the patient require from the helper? Only supervision, cuing, coaxing, OR he lp to set out transfer equipment or to lock brakes and/or lift foot rests TRANSFERS: TOILET - SCORE: 5-SUP TRANSFERS: SHOWER: Activity did not occur on this shift TRANSFERS: SHOWER - SCORE: 0-UNK TRANSFERS: TUB: Activity did not occur on this shift TRANSFERS: TUB - SCORE: 0-UNK LOCOMOTION: WALK: Activity did not occur on this shift LOCOMOTION: WALK - SCORE: 0-UNK LOCOMOTION: WHEELCHAIR: Activity did not occur on this shift LOCOMOTION: WHEELCHAIR - SCORE: 0-UNK COMPREHENSION: COMPREHENSION - SCORE: 0-UNK EXPRESSION EXPRESSION - SCORE: 0-UNK SOCIAL INTERACTION: SOCIAL INTERACTION - SCORE: 0-UNK PROBLEM SOLVING: PROBLEM SOLVING - SCORE: 0-UNK MEMORY: MEMORY - SCORE: 0-UNK SIGNATURE PANEL: The following modified sections: Eating - Score, Grooming - Score, Bathing - Score, Dressing - Upper Body - Score, Dressing - Lower Body - Score, Toileting - Score, Bladder Management - Score, Bowel Man agement - Score, Transfers: Bed, Chair, Wheelchair - Score, Transfers: Toilet - Score, Transfers: Susie wer - Score, Transfers: Tub - Score, Locomotion: Walk - Score, Locomotion: Wheelchair - Score, Compre hension - Score, Expression - Score, Social Interaction - Score, Problem Solving - Score, Memory - Sc ore were [electronically] signed by Karey Montgomery CNA on MonJan 24 2018 09:10:36 T-0500 ([facility] Time)
--- NOTE | 2018-01-24 15:01 | FAST ---
ENCOUNTER DATE AND TIME: 01/24/2018 08:00 (CDT) NAME MARIBEL MIJARES DATE OF : 1965 DATE OF ADMISSION: 01/13/2018 05:31 (CDT) PHONE: AGE: 52 SSN# [id number] GENDER: Male ENCOUNTER PHYSICIAN: Dr. Cameron Malcolm M.D. ADMISSION DIAGNOSIS: - Amputation of Limb 05 - Bilateral Lower Limb Below the Knee (BK/BK) (05.7) Bilateral BKA. EATING: Activity did not occur on this shift EATING - SCORE: 0-UNK GROOMING: Activity did not occur on this shift GROOMING - SCORE: 0-UNK BATHING: Activity did not occur on this shift BATHING - SCORE: 0-UNK DRESSING - UPPER BODY: Activity did not occur on this shift Patient is not dressing in public clothing ARTICLES SCORE Total number of steps: 0 DRESSING - UPPER BODY - SCORE: 0-UNK DRESSING - LOWER BODY: Activity did not occur on this shift Patient is not dressing in public clothing ARTICLES SCORE Total number of steps: 0 DRESSING - LOWER BODY - SCORE: 0-UNK TOILETING: Activity did not occur on this shift TOILETING - SCORE: 0-UNK BLADDER MANAGEMENT: Activity did not occur on this shift BLADDER MANAGEMENT - SCORE: 7-IND BOWEL MANAGEMENT: Activity did not occur on this shift BOWEL MANAGEMENT - SCORE: 7-IND TRANSFERS: BED, CHAIR, WHEELCHAIR: Activity did not occur on this shift TRANSFERS: BED, CHAIR, WHEELCHAIR - SCORE: 0-UNK TRANSFERS: TOILET: Activity did not occur on this shift TRANSFERS: TOILET - SCORE: 0-UNK TRANSFERS: SHOWER: Activity did not occur on this shift TRANSFERS: SHOWER - SCORE: 0-UNK TRANSFERS: TUB: Activity did not occur on this shift TRANSFERS: TUB - SCORE: 0-UNK LOCOMOTION: WALK: Activity did not occur on this shift LOCOMOTION: WALK - SCORE: 0-UNK LOCOMOTION: WHEELCHAIR: LOCOMOTION: WHEELCHAIR - STEP 1: Does the patient need help to go 150 feet in a wheelchair? No. LOCOMOTION: WHEELCHAIR - SCORE: 6-SRAVANTHI LOCOMOTION: STAIRS: Activity did not occur on this shift LOCOMOTION: STAIRS - SCORE: 0-UNK COMPREHENSION: COMPREHENSION - SCORE: 0-UNK EXPRESSION EXPRESSION - SCORE: 0-UNK SOCIAL INTERACTION: SOCIAL INTERACTION - SCORE: 0-UNK PROBLEM SOLVING: PROBLEM SOLVING - SCORE: 0-UNK MEMORY: MEMORY - SCORE: 0-UNK SIGNATURE PANEL: The following modified sections: Transfers: Bed, Chair, Wheelchair - Score, Transfers: Toilet - Score , Locomotion: Walk - Score, Locomotion: Wheelchair - Score, Locomotion: Stairs - Score were [electron ically] signed by Harvinder Sanchez PTA on MonJan 24 2018 15:01:08 T-0500 (Central Daylight Time)
[2018-01-24] MEDS ORDERED: cloNIDine HCl 0.1 MG TAB PO PRN (19:37)
[2018-01-24] MEDS: RANITIDINE 150 MG TABLET PO SCH (20:48)
[2018-01-24] MEDS: SERTRALINE HCL 50 MG TAB PO SCH (20:48)
--- NOTE | 2018-01-24 21:17 | R.PN ---
ENCOUNTER DATE AND TIME: 01/24/2018 21:14 (CDT) NAME MARIBEL MIJARES DATE OF : 1965 DATE OF ADMISSION: 01/13/2018 05:31 (CDT) Bilateral BKACHIEF COMPLAINT: Bilateral below the knee amputations. SUBJECTIVE: Pt denied any Shortness of Breath. Pt denied any depression. Bed mobility done with modified independence. Ambulated 260' with contact guard assistance using a rolling walker. Propelled wheelchair 250' with s tandby assistance. Speech expression and comprehension is at modified independence. Toilet and tub tr ansfer with modified independence. No new complaints. Doing well with physical and occupational therapy. VITAL SIGNS Temperature: 98.0 F SBP/DBP: 149/66 Pulse: 60 Resp: 14 Self-propelled wheelchair 1000' with modified independence. MEDICATION ALLERGIES: CLINDAMYCIN ENVIRONMENTAL ALLERGIES: None Known - Substance Allergies None Known - Other Allergies None Known CONSULT: Perform Consult Certified Prosthetic for prosthesis construction NURSING: - Shower allowing shower - Lab Results blood Sugar Check ACHS - Skin care per protocol PRECAUTIONS: - Fall Precaution Bed and chair alarm ACTIVITIES OOB only with supervision THERAPIES: - Orthotics/Prosthetics Prosthetic Evaluation. - Occupational Therapy Evaluate and Treat. - Physical Therapy Evaluate and Treat. PHYSICAL EXAM - Gen Alert and awake Lying in bed No apparent distress Oriented to: person, time, and place - Skin left lower extremity incisions intact Normacephalic - Eyes No abnormalities - ENMT No abnormalities - Neck No abnormalities - CVS RRR - Chest Clear - Resp Clear to auscultation - Abd Soft - GI Non distended Deferred - No abnormalities - Ext No significant edema. - MSK No Stiffness - Neuro Incoordination and left leg weakness. - Psych No abnormalities ASSESSMENT: Pt. is a 52 yo Right-handed male.On 12/26/2017 he was admitted to [facility] with diagnosis Bilateral BKA.His impairment category is Amputation of Limb 05 - Bilateral Low er Limb Below the Knee (BK/BK) (05.7).Pre-morbidly, Pt. was independent/mod-I in Sphincter Control, T ransfers Control, Communication, Social Cognition, Self-Care, and Locomotion; and he had good Sphinct er Control.Currently, he has deficits of Safety Awareness, Transfers Control, Balance, Locomotion, En durance, and Self-Care.Pt. is now referred to [facility] for acute in-patient rehabilitation in order to maximize patient's functional independence in activities of daily living, strength, ROM, and mobility.- Rehab Goal Patient has realistic goal of being discharged at assistance level 6-Sharon to reside at Home with Fam jacqueline/Relatives. MDM/PLAN: - Diet Type Continue Regular - Physical Therapy Gait dysfunction - to improve, our physical therapists will perform initial evaluation of pt's statu s upon admission and devise an individualized program for Gait Training, and Wheel Chair mobility Inability to transfer - to improve, our physical therapists will perform initial evaluation of pt's status upon admission and devise an individualized program for Bed mobility Need for home safety evaluation - to improve, our physical therapists will perform initial evaluatio n of pt's status upon admission and devise an individualized program for Home Evaluation Need in caregiver upon discharge - to improve, our physical therapists will perform initial evaluati on of pt's status upon admission and devise an individualized program for Caregiver Training New precaution - to improve, our physical therapists will perform initial evaluation of pt's status upon admission and devise an individualized program for Patient precaution education Edema - to improve, our physical therapists will perform initial evaluation of pt's status upon admi ssion and devise an individualized program for Elevation Training, and Lymphedema Therapy Poor balance - to improve, our physical therapists will perform initial evaluation of pt's status up on admission and devise an individualized program for Balance Training Poor endurance - to improve, our physical therapists will perform initial evaluation of pt's status upon admission and devise an individualized program for Endurance Training Weakness - to improve, our physical therapists will perform initial evaluation of pt's status upon a dmission and devise an individualized program for Aquatic Therapy, Neuromuscular Reeducation, and Str engthening Achieving independence - to improve, our physical therapists will perform initial evaluation of pt's status upon admission and devise an individualized program for Community Reintegration Activities - Diet - Liquid Texture Continue Regular - Tube Feed Continue N/A - Lab Results blood Sugar Check ACHS - Weight Bearing Precaution TTWB left LE - Fall Precaution Bed and chair alarm - Skin care per protocol - N/A Perform Consult Certified Prosthetic for prosthesis construction - Diet - Solid Texture Continue Regular - Shower allowing shower - Occupational Therapy ADL deficits - to improve, our occupation therapists will perform initial evaluation of pt's status upon admission and devise an individualized program for Bathing, Bed mobility, Community Reintegratio n, Cooking, Dressing, Eating, Fine Motor Skills, Grooming, Homemaking, Kitchen Mobility, Laundry, Pat ient Education, Safety Awareness, Splinting - Positioning, Transfers(Toilet, Tub, Shower), and Wheel Chair Management Need for primary health care nurse - to improve, our occupation therapists will perform initial evaluation of pt's status upon admission and devise an individualized program for Caregiver Training Weakness - to improve, our occupation therapists will perform initial evaluation of pt's status upon admission and devise an individualized program for Aquatic Therapy, Balance, Endurance, UE ROM, and UE strengthening FUNCTIONAL STATUS: UPDATED AT WEEKLY TEAM CONFERENCE - Bladder Same accident frequency: 7-Ind - No accidents in the past 7 days - Bowel Same accident frequency: 7-Ind - No accidents in the past 7 days - Walking Same score based on distance walked: 0(N/A) - Wheelchair Same score based on distance traveled: 0(N/A) FUNCTIONAL STATUS: - Self-Care A. Eating Ind B. Grooming Ind C. Bathing sup D. Dressing - Upper sup E. Dressing - Lower Vinny F. Toileting Vinny - Sphincter Control G: Bladder control Ind H: Bowel control Ind - Transfers Control I. Bed/Chair/Wheelchair Vinny J. Toilet Vinny K. Tub/Shower ADNO - Locomotion L. Walk/Wheelchair (C) Vinny L. Walk/Wheelchair (W) Vinny M. Stairs ADNO - Communication N. Comprehension (B) Sharon O. Expression (B) Sharon - Social Cognition P. Social Interaction Sharon Q. Problem Solving Sharon R. Memory Sharon - Endurance Fair - Balance Fair - Safety Awareness Fair CURRENT FUNC. DEFICITS: Safety Awareness, Transfers Control, Balance, Locomotion, Endurance, and Self-Care SIGNATURE PANEL: (CDT)
[2018-01-24] MEDS: hydrOXYzine HCl 25 MG TAB PO PRN (23:26)
--- NOTE | 2018-01-25 01:36 | PN ---
Date of Progress Note: 01/24/2018 Subjective: The patient is doing well, a little bit depressed. Objective: Vital Signs: Blood pressure of 156/83, pulse of 66, afebrile. Chest: Clear to auscultation. Heart: S1, S2. Regular. Abdomen: Soft, nontender. Extremities: Bilateral above-knee amputation. Laboratory Data: H and H 11.2/34.5. Sodium 139, potassium 4.1, bicarb 24, BUN 50, creatinine 5.8, c alcium 9.3, phosphorus 4. Current Medications: The patient is on include; 1.Plavix. 2.Epogen. 3.Ferrous sulfate. 4.Atarax. 5.Acyclovir. 6.Clonidine 0.1 p.r.n. 7.Lisinopril 20 mg b.i.d. 8.Metoprolol 50 daily. 9.Lasix. 10.Renvela. Assessment And Plan: 1.End-stage renal disease. We will continue the patient on dialysis, status post dialysis today. 2.Hypertension, controlled, optimal. Continue current medication. 3.Secondary hyperparathyroidism. Continue current binder. 4.Anemia. Continue Epogen. 5.Peripheral vascular disease, status post above-knee amputation. Continue PT/OT. ULYSSES/DONNA Voice ID: [id number] Report ID: [id number]
--- NOTE | 2018-01-25 02:16 | FAST ---
SHIFT START DATE/TIME: 01/24/2018 19:00 (CDT) SHIFT END DATE/TIME: 01/25/2018 07:00 (CDT) NAME MARIBEL MIJARES DATE OF : 1965 DATE OF ADMISSION: 01/13/2018 05:31 (CDT) PHONE: AGE: 52 N# [id number] GENDER: Male ENCOUNTER PHYSICIAN: Dr. Cameron Malcolm M.D. ADMISSION DIAGNOSIS: - Amputation of Limb 05 - Bilateral Lower Limb Below the Knee (BK/BK) (05.7) Bilateral BKA. EATING: Activity did not occur on this shift EATING - SCORE: 0-UNK GROOMING: Activity did not occur on this shift GROOMING - SCORE: 0-UNK BATHING: Activity did not occur on this shift BATHING - SCORE: 0-UNK DRESSING - UPPER BODY: Patient is not dressing in public clothing ARTICLES SCORE Total number of steps: 0 DRESSING - UPPER BODY - SCORE: 0-UNK DRESSING - LOWER BODY: Patient is not dressing in public clothing ARTICLES SCORE Total number of steps: 0 DRESSING - LOWER BODY - SCORE: 0-UNK TOILETING: Activity did not occur on this shift TOILETING - SCORE: 0-UNK BLADDER MANAGEMENT: Patient is on renal dialysis or peritoneal dialysis and no voiding activity BLADDER MANAGEMENT - SCORE: 7-IND BOWEL MANAGEMENT: Activity did not occur on this shift BOWEL MANAGEMENT - SCORE: 7-IND TRANSFERS: BED, CHAIR, WHEELCHAIR: TRANSFERS: BED, CHAIR, WHEELCHAIR - STEP 1: Does the patient require assistance with bed, chair, or wheelchair transfers? Yes. TRANSFERS: BED, CHAIR, WHEELCHAIR - STEP 2: Does the patient require the assistance of a helper? Yes. TRANSFERS: BED, CHAIR, WHEELCHAIR - STEP 3: How much assistance does the patient require from the helper? Steadying/guiding assistance TRANSFERS: BED, CHAIR, WHEELCHAIR - SCORE: 4-MIN TRANSFERS: TOILET: Activity did not occur on this shift TRANSFERS: TOILET - SCORE: 0-UNK TRANSFERS: SHOWER: Activity did not occur on this shift TRANSFERS: SHOWER - SCORE: 0-UNK TRANSFERS: TUB: Activity did not occur on this shift TRANSFERS: TUB - SCORE: 0-UNK LOCOMOTION: WALK: Activity did not occur on this shift LOCOMOTION: WALK - SCORE: 0-UNK LOCOMOTION: WHEELCHAIR: Activity did not occur on this shift LOCOMOTION: WHEELCHAIR - SCORE: 0-UNK COMPREHENSION: COMPREHENSION - STEP 1: Does the patient require help to understand complex and abstract ideas (such as current events, finan caitlyn, discharge planning, medical issues, relationships, etc)? Yes. COMPREHENSION - STEP 2: Does the patient require help to understand questions or statements about basic needs or ideas (such as hunger, thirst, sleep, safety, daily schedule, room location, or discomfort) half or more of the t [place]? No. COMPREHENSION - STEP 3: How often does the patient need help to understand directions and conversation about basic needs? 10% - 24% of the time COMPREHENSION - SCORE: 4-MIN EXPRESSION EXPRESSION - STEP 1: Does the patient require help expressing complex and abstract ideas (such as current events, finances , discharge planning, medical issues, relationships, etc)? Yes. EXPRESSION - STEP 2: Does the patient require help to express basic necessities or ideas (such as hunger, thirst, sleep, s afety, daily schedule, room location, or discomfort) half or more of the time? No. EXPRESSION - STEP 3: How often does the patient need help to express directions and conversation about basic needs? 10-24% of the time EXPRESSION - SCORE: 4-MIN SOCIAL INTERACTION: SOCIAL INTERACTION - STEP 1: Does the patient require a helper to interact with others in social and therapeutic situations? No. SOCIAL INTERACTION - STEP 2: Does the patient need extra time in social situations, OR does s/he interact with staff, other patien ts, and family members ONLY in structured environments, OR does s/he require medication for social in teraction? Yes, patient requires medication for social interaction SOCIAL INTERACTION - SCORE: 6-SRAVANTHI PROBLEM SOLVING: PROBLEM SOLVING - STEP 1: Does the patient need help to solve complex problems such as managing a checking account or confronti ng interpersonal problems? Yes. PROBLEM SOLVING - STEP 2: Does the patient solve basic routine problems half or more of the time? Yes. PROBLEM SOLVING - STEP 3: How often does the patient need help to solve basic routine problems? 10%-24% of the time PROBLEM SOLVING - SCORE: 4-MIN MEMORY: MEMORY - STEP 1: Does the patient need help to remember frequently encountered people, daily routines, and executing r equests? No. MEMORY - STEP 2: Does the patient have slight difficulty recognizing frequently encountered people, daily routines, or executing requests without the need for repetition or using self-initiated or environmental cues to remember? Yes. MEMORY - SCORE: 6-SRAVANTHI SIGNATURE PANEL: The following modified sections: Eating - Score, Grooming - Score, Dressing - Upper Body - Score, Rubens ssing - Lower Body - Score, Toileting - Score, Bladder Management - Score, Bowel Management - Score, Transfers: Bed, Chair, Wheelchair - Score, Transfers: Toilet - Score, Transfers: Shower - Score, Ash sfers: Tub - Score, Locomotion: Walk - Score, Locomotion: Wheelchair - Score, Comprehension - Score, Expression - Score, Social Interaction - Score, Problem Solving - Score, Memory - Score were [electro nically] signed by Charito Mathur CNA on MonJan 25 2018 02:15:45 GMT-0500 (Central Daylight Time)
[2018-01-25] MEDS: HYDROCODONE/APAP 5/325 MG TAB PO PRN ×4 (04:09→19:47)
[2018-01-25] MEDS: METOPROLOL TAR 25 MG TAB PO SCH (05:23)
[2018-01-25 06:29] LABS: Absolute Lymphocytes (CBC) 0.6 K/uL (0.7-4.9); Absolute Monocytes 0.7 K/uL (0.1-1.3); Absolute Neutrophil 6.1 K/uL (1.8-8.0); Basophils % 2.6 % (0-1.3); Eosinophils % 3.2 % (0-4.4); Lymphocytes % 7.6 % (15.3-44.8); MCH 29.1 pg (27.0-35.0); MCV 91.9 fL (80-100); MPV 9.1 fL (7.6-11.3); Monocytes % 9.1 % (3.3-12.3); RBC Red Blood Cell Count 4.58 M/uL (4.33-5.43)
[2018-01-25 06:51] LABS: Albumin 2.6 g/dL (3.4-5.0); Potassium 4.4 mmol/L (3.5-5.1); Prealbumin 24.6 mg/dL (20-40)
[2018-01-25] MEDS: FUROSEMIDE 40 MG TABLET PO SCH (06:57)
[2018-01-25] MEDS: LISINOPRIL 10 MG TAB PO SCH ×2 (06:58→19:43)
[2018-01-25] MEDS: INSULIN -REGULAR HUMAN 50 UNIT/0.5 ML ML SQ SCH ×4 (07:30→20:17)
[2018-01-25] MEDS: HEPARIN 5000 UNIT/ML 1 ML VIAL SQ SCH ×2 (07:30→18:11)
[2018-01-25] MEDS: COLLAGENASE 30 GM OINTMENT TOP SCH ×2 (08:00→22:30)
[2018-01-25] MEDS: JUVEN PACKET PO SCH ×2 (08:00→19:37)
[2018-01-25] MEDS: ASCORBIC ACID 500 MG TABLET PO SCH (08:07)
[2018-01-25] MEDS: CLOPIDOGREL 75 MG TABLET PO SCH (08:08)
[2018-01-25] MEDS: FERROUS SULFATE 325 MG TAB PO SCH (08:08)
[2018-01-25] MEDS: FE SULF/FA/VIT B COMP & C TAB PO SCH (08:08)
[2018-01-25] MEDS: CYANOCOBALAMIN 1,000 MCG TAB PO SCH (08:08)
[2018-01-25] MEDS: ACYCLOVIR 400 MG TABLET PO SCH ×3 (08:08→20:50)
[2018-01-25] MEDS: SEVELAMER CARBONATE 800 MG TABLET PO SCH ×3 (08:08→17:14)
[2018-01-25] MEDS: GABAPENTIN 100 MG CAP PO SCH ×2 (08:08→19:43)
[2018-01-25] MEDS: PROMOD 30 ML DOSE PO SCH ×2 (08:10→19:38)
[2018-01-25 08:33] LABS: Anisocytosis 2+; Blood Morphology Comment NOTED (NOT SEEN); Platelet Estimate ADEQ; Urine White Blood Cell Casts OK
--- NOTE | 2018-01-25 14:37 | FAST ---
ENCOUNTER DATE AND TIME: 01/25/2018 08:00 (CDT) NAME MARIBEL MIJARES DATE OF : 1965 DATE OF ADMISSION: 01/13/2018 05:31 (CDT) PHONE: AGE: 52 SSN# [id number] GENDER: Male ENCOUNTER PHYSICIAN: Dr. Cameron Malcolm M.D. ADMISSION DIAGNOSIS: - Amputation of Limb 05 - Bilateral Lower Limb Below the Knee (BK/BK) (05.7) Bilateral BKA. EATING: Activity did not occur on this shift EATING - SCORE: 0-UNK GROOMING: Activity did not occur on this shift GROOMING - SCORE: 0-UNK BATHING: Activity did not occur on this shift BATHING - SCORE: 0-UNK DRESSING - UPPER BODY: Activity did not occur on this shift Patient is not dressing in public clothing ARTICLES SCORE Total number of steps: 0 DRESSING - UPPER BODY - SCORE: 0-UNK DRESSING - LOWER BODY: Activity did not occur on this shift Patient is not dressing in public clothing ARTICLES SCORE Total number of steps: 0 DRESSING - LOWER BODY - SCORE: 0-UNK TOILETING: Activity did not occur on this shift TOILETING - SCORE: 0-UNK BLADDER MANAGEMENT: Activity did not occur on this shift BLADDER MANAGEMENT - SCORE: 7-IND BOWEL MANAGEMENT: Activity did not occur on this shift BOWEL MANAGEMENT - SCORE: 7-IND TRANSFERS: BED, CHAIR, WHEELCHAIR: TRANSFERS: BED, CHAIR, WHEELCHAIR - STEP 1: Does the patient require assistance with bed, chair, or wheelchair transfers? Yes. TRANSFERS: BED, CHAIR, WHEELCHAIR - STEP 2: Does the patient require the assistance of a helper? No. Patient only requires an assistive device fo r bed, chair, wheelchair transfers such as a sliding board, grab bar, or brace, OR s/he takes more th an reasonable time, OR there is a safety concern when s/he performs the transfers TRANSFERS: BED, CHAIR, WHEELCHAIR - SCORE: 6-SRAVANTHI TRANSFERS: TOILET: Activity did not occur on this shift TRANSFERS: TOILET - SCORE: 0-UNK TRANSFERS: SHOWER: Activity did not occur on this shift TRANSFERS: SHOWER - SCORE: 0-UNK TRANSFERS: TUB: Activity did not occur on this shift TRANSFERS: TUB - SCORE: 0-UNK LOCOMOTION: WALK: Activity did not occur on this shift LOCOMOTION: WALK - SCORE: 0-UNK LOCOMOTION: WHEELCHAIR: LOCOMOTION: WHEELCHAIR - STEP 1: Does the patient need help to go 150 feet in a wheelchair? No. LOCOMOTION: WHEELCHAIR - SCORE: 6-SRAVANTHI LOCOMOTION: STAIRS: Activity did not occur on this shift LOCOMOTION: STAIRS - SCORE: 0-UNK COMPREHENSION: COMPREHENSION - SCORE: 0-UNK EXPRESSION EXPRESSION - SCORE: 0-UNK SOCIAL INTERACTION: SOCIAL INTERACTION - SCORE: 0-UNK PROBLEM SOLVING: PROBLEM SOLVING - SCORE: 0-UNK MEMORY: MEMORY - SCORE: 0-UNK SIGNATURE PANEL: The following modified sections: Transfers: Bed, Chair, Wheelchair - Score, Transfers: Toilet - Score , Locomotion: Walk - Score, Locomotion: Wheelchair - Score, Locomotion: Stairs - Score were [electron reji] signed by Harvinder Sanchez PTA on MonJan 25 2018 14:37:19 GMT-0500 (Central Daylight Time)
--- NOTE | 2018-01-25 14:49 | FAST ---
SHIFT START DATE/TIME: 01/25/2018 07:00 (CDT) SHIFT END DATE/TIME: 01/25/2018 19:00 (CDT) NAME MARIBEL MIJARES DATE OF : 1965 DATE OF ADMISSION: 01/13/2018 05:31 (CDT) PHONE: AGE: 52 N# [id number] GENDER: Male ENCOUNTER PHYSICIAN: Dr. Cameron Malcolm M.D. ADMISSION DIAGNOSIS: - Amputation of Limb 05 - Bilateral Lower Limb Below the Knee (BK/BK) (05.7) Bilateral BKA. EATING: EATING - STEP 1: Does the patient require assistance when eating? No. EATING - SCORE: 7-IND GROOMING: Activity did not occur on this shift GROOMING - SCORE: 0-UNK BATHING: Activity did not occur on this shift BATHING - SCORE: 0-UNK DRESSING - UPPER BODY: Activity did not occur on this shift ARTICLES SCORE Total number of steps: 0 DRESSING - UPPER BODY - SCORE: 0-UNK DRESSING - LOWER BODY: Activity did not occur on this shift ARTICLES SCORE Total number of steps: 0 DRESSING - LOWER BODY - SCORE: 0-UNK TOILETING: Activity did not occur on this shift TOILETING - SCORE: 0-UNK BLADDER MANAGEMENT: Patient is on renal dialysis or peritoneal dialysis and no voiding activity BLADDER MANAGEMENT - SCORE: 7-IND BLADDER MANAGEMENT - FREQUENCY OF ACCIDENTS: BLADDER MANAGEMENT(FA) - STEP 1: How many accidents has the patient had during the current shift? 0 BOWEL MANAGEMENT: BOWEL MANAGEMENT - STEP 1: Does the patient control bowels completely and intentionally without equipment devices or medications AND is always continent? Yes. BOWEL MANAGEMENT - SCORE: 7-IND BOWEL MANAGEMENT - FREQUENCY OF ACCIDENTS: BOWEL MANAGEMENT(FA) - STEP 1: How many accidents has the patient had during the current shift? 0 TRANSFERS: BED, CHAIR, WHEELCHAIR: TRANSFERS: BED, CHAIR, WHEELCHAIR - STEP 1: Does the patient require assistance with bed, chair, or wheelchair transfers? Yes. TRANSFERS: BED, CHAIR, WHEELCHAIR - STEP 2: Does the patient require the assistance of a helper? Yes. TRANSFERS: BED, CHAIR, WHEELCHAIR - STEP 3: How much assistance does the patient require from the helper? Only supervision TRANSFERS: BED, CHAIR, WHEELCHAIR - SCORE: 5-SUP TRANSFERS: TOILET: TRANSFERS: TOILET - STEP 1: Does the patient require assistance with toilet transfers? Yes. TRANSFERS: TOILET - STEP 2: Does the patient require the assistance of a helper? Yes. TRANSFERS: TOILET - STEP 3: How much assistance does the patient require from the helper? Only supervision, cuing, coaxing, OR he lp to set out transfer equipment or to lock brakes and/or lift foot rests TRANSFERS: TOILET - SCORE: 5-SUP TRANSFERS: SHOWER: Activity did not occur on this shift TRANSFERS: SHOWER - SCORE: 0-UNK TRANSFERS: TUB: Activity did not occur on this shift TRANSFERS: TUB - SCORE: 0-UNK LOCOMOTION: WALK: Activity did not occur on this shift LOCOMOTION: WALK - SCORE: 0-UNK LOCOMOTION: WHEELCHAIR: Activity did not occur on this shift LOCOMOTION: WHEELCHAIR - SCORE: 0-UNK COMPREHENSION: COMPREHENSION - SCORE: 0-UNK EXPRESSION EXPRESSION - SCORE: 0-UNK SOCIAL INTERACTION: SOCIAL INTERACTION - SCORE: 0-UNK PROBLEM SOLVING: PROBLEM SOLVING - SCORE: 0-UNK MEMORY: MEMORY - SCORE: 0-UNK SIGNATURE PANEL: The following modified sections: Eating - Score, Grooming - Score, Bathing - Score, Dressing - Upper Body - Score, Dressing - Lower Body - Score, Toileting - Score, Bladder Management - Score, Bowel Man agement - Score, Transfers: Bed, Chair, Wheelchair - Score, Transfers: Toilet - Score, Transfers: Susie wer - Score, Transfers: Tub - Score, Locomotion: Walk - Score, Locomotion: Wheelchair - Score, Compre hension - Score, Expression - Score, Social Interaction - Score, Problem Solving - Score, Memory - Sc ore were [electronically] signed by Karey Montgomery CNA on MonJan 25 2018 14:48:46 GMT-0500 (Centra l Daylight Time)
--- NOTE | 2018-01-25 16:57 | R.PN ---
ENCOUNTER DATE AND TIME: 01/25/2018 16:54 (CDT) NAME MARIBEL MIJARES DATE OF : 1965 DATE OF ADMISSION: 01/13/2018 05:31 (CDT) Bilateral BKACHIEF COMPLAINT: Bilateral below the knee amputations. SUBJECTIVE: Pt denied any Shortness of Breath. Pt denied any depression. Bed mobility done with modified independence. Ambulated 260' with contact guard assistance using a rolling walker. Propelled wheelchair 250' with s tandby assistance. Speech expression and comprehension is at modified independence. Toilet and tub tr ansfer with modified independence. No new complaints. Doing well with physical and occupational therapy. Self-propelled wheelchair 1000' with modified independence. Up and down ramp using wheelchair with st andby assistance. VITAL SIGNS Temperature: 98.0 F SBP/DBP: 134/59 Pulse: 62 Resp: 14 MEDICATION ALLERGIES: CLINDAMYCIN ENVIRONMENTAL ALLERGIES: None Known - Substance Allergies None Known - Other Allergies None Known CONSULT: Perform Consult Certified Prosthetic for prosthesis construction NURSING: - Shower allowing shower - Lab Results blood Sugar Check ACHS - Skin care per protocol PRECAUTIONS: - Fall Precaution Bed and chair alarm ACTIVITIES OOB only with supervision THERAPIES: - Orthotics/Prosthetics Prosthetic Evaluation. - Occupational Therapy Evaluate and Treat. - Physical Therapy Evaluate and Treat. PHYSICAL EXAM - Gen Alert and awake Lying in bed No apparent distress Oriented to: person, time, and place - Skin left lower extremity incisions intact Normacephalic - Eyes No abnormalities - ENMT No abnormalities - Neck No abnormalities - CVS RRR - Chest Clear - Resp Clear to auscultation - Abd Soft - GI Non distended Deferred - No abnormalities - Ext No significant edema. - MSK No Stiffness - Neuro Incoordination and left leg weakness. - Psych No abnormalities ASSESSMENT: Pt. is a 52 yo Right-handed male.On 12/26/2017 he was admitted to [facility] with diagnosis Bilateral BKA.His impairment category is Amputation of Limb 05 - Bilateral Low er Limb Below the Knee (BK/BK) (05.7).Pre-morbidly, Pt. was independent/mod-I in Sphincter Control, T ransfers Control, Communication, Social Cognition, Self-Care, and Locomotion; and he had good Sphinct er Control.Currently, he has deficits of Safety Awareness, Transfers Control, Balance, Locomotion, En durance, and Self-Care.Pt. is now referred to [facility] for acute in-patient rehabilitation in order to maximize patient's functional independence in activities of daily living, strength, ROM, and mobility.- Rehab Goal Patient has realistic goal of being discharged at assistance level 6-Sharon to reside at Home with Fam jacqueline/Relatives. MDM/PLAN: - Diet Type Continue Regular - Physical Therapy Gait dysfunction - to improve, our physical therapists will perform initial evaluation of pt's statu s upon admission and devise an individualized program for Gait Training, and Wheel Chair mobility Inability to transfer - to improve, our physical therapists will perform initial evaluation of pt's status upon admission and devise an individualized program for Bed mobility Need for home safety evaluation - to improve, our physical therapists will perform initial evaluatio n of pt's status upon admission and devise an individualized program for Home Evaluation Need in caregiver upon discharge - to improve, our physical therapists will perform initial evaluati on of pt's status upon admission and devise an individualized program for Caregiver Training New precaution - to improve, our physical therapists will perform initial evaluation of pt's status upon admission and devise an individualized program for Patient precaution education Edema - to improve, our physical therapists will perform initial evaluation of pt's status upon admi ssion and devise an individualized program for Elevation Training, and Lymphedema Therapy Poor balance - to improve, our physical therapists will perform initial evaluation of pt's status up on admission and devise an individualized program for Balance Training Poor endurance - to improve, our physical therapists will perform initial evaluation of pt's status upon admission and devise an individualized program for Endurance Training Weakness - to improve, our physical therapists will perform initial evaluation of pt's status upon a dmission and devise an individualized program for Aquatic Therapy, Neuromuscular Reeducation, and Str engthening Achieving independence - to improve, our physical therapists will perform initial evaluation of pt's status upon admission and devise an individualized program for Community Reintegration Activities - Diet - Liquid Texture Continue Regular - Tube Feed Continue N/A - Lab Results blood Sugar Check ACHS - Weight Bearing Precaution TTWB left LE - Fall Precaution Bed and chair alarm - Skin care per protocol - N/A Perform Consult Certified Prosthetic for prosthesis construction - Diet - Solid Texture Continue Regular - Shower allowing shower - Occupational Therapy ADL deficits - to improve, our occupation therapists will perform initial evaluation of pt's status upon admission and devise an individualized program for Bathing, Bed mobility, Community Reintegratio n, Cooking, Dressing, Eating, Fine Motor Skills, Grooming, Homemaking, Kitchen Mobility, Laundry, Pat ient Education, Safety Awareness, Splinting - Positioning, Transfers(Toilet, Tub, Shower), and Wheel Chair Management Need for care tech - to improve, our occupation therapists will perform initial evaluation of pt's status upon admission and devise an individualized program for Caregiver Training Weakness - to improve, our occupation therapists will perform initial evaluation of pt's status upon admission and devise an individualized program for Aquatic Therapy, Balance, Endurance, UE ROM, and UE strengthening FUNCTIONAL STATUS: UPDATED AT WEEKLY TEAM CONFERENCE - Bladder Same accident frequency: 7-Ind - No accidents in the past 7 days - Bowel Same accident frequency: 7-Ind - No accidents in the past 7 days - Walking Same score based on distance walked: 0(N/A) - Wheelchair Same score based on distance traveled: 0(N/A) FUNCTIONAL STATUS: - Self-Care A. Eating Ind B. Grooming Ind C. Bathing sup D. Dressing - Upper sup E. Dressing - Lower Vinny F. Toileting Vinny - Sphincter Control G: Bladder control Ind H: Bowel control Ind - Transfers Control I. Bed/Chair/Wheelchair Vinny J. Toilet Vinny K. Tub/Shower ADNO - Locomotion L. Walk/Wheelchair (C) Vinny L. Walk/Wheelchair (W) Vinny M. Stairs ADNO - Communication N. Comprehension (B) Sharon O. Expression (B) Sharon - Social Cognition P. Social Interaction Sharon Q. Problem Solving Sharon R. Memory Sharon - Endurance Fair - Balance Fair - Safety Awareness Fair CURRENT [facility]. DEFICITS: Safety Awareness, Transfers Control, Balance, Locomotion, Endurance, and Self-Care SIGNATURE PANEL: (CDT)
[2018-01-25] MEDS: DOCUSATE NA/SENNA CONC 1 TAB PO SCH (19:39)
[2018-01-25] MEDS: hydrOXYzine HCl 25 MG TAB PO PRN (19:47)
[2018-01-25] MEDS: SERTRALINE HCL 50 MG TAB PO SCH (20:50)
[2018-01-25] MEDS: RANITIDINE 150 MG TABLET PO SCH (20:50)
--- NOTE | 2018-01-26 02:32 | FAST ---
SHIFT START DATE/TIME: 01/25/2018 19:00 (CDT) SHIFT END DATE/TIME: 01/26/2018 07:00 (CDT) NAME MARIBEL MIJARES DATE OF : 1965 DATE OF ADMISSION: 01/13/2018 05:31 (CDT) PHONE: AGE: 52 N# [id number] GENDER: Male ENCOUNTER PHYSICIAN: Dr. Cameron Malcolm M.D. ADMISSION DIAGNOSIS: - Amputation of Limb 05 - Bilateral Lower Limb Below the Knee (BK/BK) (05.7) Bilateral BKA. EATING: Activity did not occur on this shift EATING - SCORE: 0-UNK GROOMING: Activity did not occur on this shift GROOMING - SCORE: 0-UNK BATHING: Activity did not occur on this shift BATHING - SCORE: 0-UNK DRESSING - UPPER BODY: Patient is not dressing in public clothing ARTICLES SCORE Total number of steps: 0 DRESSING - UPPER BODY - SCORE: 0-UNK DRESSING - LOWER BODY: Patient is not dressing in public clothing ARTICLES SCORE Total number of steps: 0 DRESSING - LOWER BODY - SCORE: 0-UNK TOILETING: Activity did not occur on this shift TOILETING - SCORE: 0-UNK BLADDER MANAGEMENT: Patient is on renal dialysis or peritoneal dialysis and no voiding activity BLADDER MANAGEMENT - SCORE: 7-IND BOWEL MANAGEMENT: Activity did not occur on this shift BOWEL MANAGEMENT - SCORE: 7-IND TRANSFERS: BED, CHAIR, WHEELCHAIR: Activity did not occur on this shift TRANSFERS: BED, CHAIR, WHEELCHAIR - SCORE: 0-UNK TRANSFERS: TOILET: Activity did not occur on this shift TRANSFERS: TOILET - SCORE: 0-UNK TRANSFERS: SHOWER: Activity did not occur on this shift TRANSFERS: SHOWER - SCORE: 0-UNK TRANSFERS: TUB: Activity did not occur on this shift TRANSFERS: TUB - SCORE: 0-UNK LOCOMOTION: WALK: Activity did not occur on this shift LOCOMOTION: WALK - SCORE: 0-UNK LOCOMOTION: WHEELCHAIR: Activity did not occur on this shift LOCOMOTION: WHEELCHAIR - SCORE: 0-UNK COMPREHENSION: COMPREHENSION - STEP 1: Does the patient require help to understand complex and abstract ideas (such as current events, finan caitlyn, discharge planning, medical issues, relationships, etc)? Yes. COMPREHENSION - STEP 2: Does the patient require help to understand questions or statements about basic needs or ideas (such as hunger, thirst, sleep, safety, daily schedule, room location, or discomfort) half or more of the t [place]? No. COMPREHENSION - STEP 3: How often does the patient need help to understand directions and conversation about basic needs? 10% - 24% of the time COMPREHENSION - SCORE: 4-MIN EXPRESSION EXPRESSION - STEP 1: Does the patient require help expressing complex and abstract ideas (such as current events, finances , discharge planning, medical issues, relationships, etc)? No. EXPRESSION - STEP 2: Does the patient need extra time, require an assistive device (such as augmentive communication syste m or a communication board), OR does s/he have mild difficulty expressing complex and abstract ideas (including mild dysarthria or mild word-find problems)? No. EXPRESSION - SCORE: 7-IND SOCIAL INTERACTION: SOCIAL INTERACTION - STEP 1: Does the patient require a helper to interact with others in social and therapeutic situations? No. SOCIAL INTERACTION - STEP 2: Does the patient need extra time in social situations, OR does s/he interact with staff, other patien ts, and family members ONLY in structured environments, OR does s/he require medication for social in teraction? Yes, patient needs extra time SOCIAL INTERACTION - SCORE: 6-SRAVANTHI PROBLEM SOLVING: PROBLEM SOLVING - STEP 1: Does the patient need help to solve complex problems such as managing a checking account or confronti ng interpersonal problems? Yes. PROBLEM SOLVING - STEP 2: Does the patient solve basic routine problems half or more of the time? Yes. PROBLEM SOLVING - STEP 3: How often does the patient need help to solve basic routine problems? 10%-24% of the time PROBLEM SOLVING - SCORE: 4-MIN MEMORY: MEMORY - STEP 1: Does the patient need help to remember frequently encountered people, daily routines, and executing r equests? No. MEMORY - STEP 2: Does the patient have slight difficulty recognizing frequently encountered people, daily routines, or executing requests without the need for repetition or using self-initiated or environmental cues to remember? Yes. MEMORY - SCORE: 6-SRAVANTHI SIGNATURE PANEL: The following modified sections: Eating - Score, Grooming - Score, Dressing - Upper Body - Score, Rubens ssing - Lower Body - Score, Toileting - Score, Bladder Management - Score, Bowel Management - Score, Transfers: Bed, Chair, Wheelchair - Score, Transfers: Toilet - Score, Transfers: Shower - Score, Ash sfers: Tub - Score, Locomotion: Walk - Score, Locomotion: Wheelchair - Score, Comprehension - Score, Expression - Score, Social Interaction - Score, Problem Solving - Score, Memory - Score were [electro nically] signed by Charito Mathur CNA on MonJan 26 2018 02:31:15 GMT-0500 (Central Daylight Time)
[2018-01-26] MEDS: METOPROLOL TAR 25 MG TAB PO SCH (06:00)
[2018-01-26] MEDS: INSULIN -REGULAR HUMAN 50 UNIT/0.5 ML ML SQ SCH ×4 (07:30→20:21)
[2018-01-26] MEDS: COLLAGENASE 30 GM OINTMENT TOP SCH ×2 (08:00→20:00)
[2018-01-26] MEDS: FUROSEMIDE 40 MG TABLET PO SCH (08:55)
[2018-01-26] MEDS: HEPARIN 5000 UNIT/ML 1 ML VIAL SQ SCH ×2 (08:59→20:00)
[2018-01-26 09:20] VITALS: BMI 20.7
--- NOTE | 2018-01-26 10:11 | P.RH.PN ---
Estimated Length of Stay: 16 Expected Discharge Date: 01/28/18 Discharge Disposition Plan: Home Family Support: Yes Vital Signs: Last Vital Signs Temp 97.4 F 01/26/18 07:02 Pulse 63 01/26/18 07:02 Resp 16 01/26/18 07:02 BP 168/91 H 01/26/18 07:02 Pulse Ox 98 01/26/18 07:02 Laboratory: Laboratory Last Values WBC 7.8 K/uL (4.3-10.9) 01/25/18 06:00 RBC 4.58 M/uL (4.33-5.43) 01/25/18 06:00 Hgb 13.3 g/dL (13.6-17.9) L 01/25/18 06:00 Hct 42.0 % (39.6-49.0) D 01/25/18 06:00 MCV 91.9 fL (80-100) 01/25/18 06:00 MCH 29.1 pg (27.0-35.0) 01/25/18 06:00 MCHC 31.7 g/dL (32.0-36.0) L 01/25/18 06:00 RDW 20.7 % (12.1-15.2) H 01/25/18 06:00 Plt Count 293 K/uL (152-406) D 01/25/18 06:00 MPV 9.1 fL (7.6-11.3) D 01/25/18 06:00 Neutrophils % 77.5 % (41.7-73.7) H 01/25/18 06:00 Lymphocytes % 7.6 % (15.3-44.8) L 01/25/18 06:00 Monocytes % 9.1 % (3.3-12.3) 01/25/18 06:00 Eosinophils % 3.2 % (0-4.4) 01/25/18 06:00 Basophils % 2.6 % (0-1.3) H 01/25/18 06:00 Absolute Neutrophils 6.1 K/uL (1.8-8.0) 01/25/18 06:00 Absolute Lymphocytes 0.6 K/uL (0.7-4.9) L 01/25/18 06:00 Absolute Monocytes 0.7 K/uL (0.1-1.3) 01/25/18 06:00 Absolute Eosinophils 0.3 K/uL (0-0.5) 01/25/18 06:00 Absolute Basophils 0.2 K/uL (0-0.5) 01/25/18 06:00 Anisocytosis 2+ 01/25/18 06:00 Morphology Comment Noted (NOT SEEN) 01/25/18 06:00 Sodium 139 mmol/L (136-145) 01/25/18 06:00 Potassium 4.4 mmol/L (3.5-5.1) 01/25/18 06:00 Chloride 105 mmol/L (98-107) 01/25/18 06:00 Carbon Dioxide 25 mmol/L (21-32) 01/25/18 06:00 BUN 33 mg/dL (7-18) H 01/25/18 06:00 Creatinine 4.90 mg/dL (0.55-1.3) H 01/25/18 06:00 Estimated GFR 13 mL/min (=/>90) L 01/25/18 06:00 Glucose 149 mg/dL (74-106) H 01/25/18 06:00 POC Glucose 90 mg/dl (65-120) 01/26/18 07:21 Calcium 9.2 mg/dL (8.5-10.1) 01/25/18 06:00 Phosphorus 4.0 mg/dL (2.5-4.9) 01/21/18 06:11 Magnesium 2.4 mg/dL (1.8-2.4) 01/14/18 06:05 Albumin 2.6 g/dL (3.4-5.0) L 01/25/18 06:00 Prealbumin 24.6 mg/dL (20-40) 01/25/18 06:00 Vancomycin Trough 6.7 ug/mL (5.0-20.0) 01/15/18 18:55 Weight: 120 lb 7 oz Wound Present: Yes Closed Surgical Incision Present: Yes Negative Pressure Wound Therapy Present: No Physician Update: He is doing very well with physical and occupational. He is on the renal diabetic diet but he is poorly compliant. However, his blood sugars and prealbumin are good. He will be discharge on Monday with home health. Medical Issues: Rashes all over his body Medication Issues: Lyirca discontinued Pain Issues: [place] 5/325mg Q4H PRN. Tramadol 50mg Q6H PRN Functional Improvement: Patient has progressed well w/ strengthening, however mentally requires VC for motivation. Patient presents w/ depression-like demeanor. Functional Improvement Occupational Therapy: pt can benifit with further therapy to address safety and energy conservation when completing all functional transfers and adl tasks. cont to increase and build pt's core and muscle strength for adl and for all functional transfers. cont with the POC and the goals by the supervising OTR. Summary: Patient's care plan and superintendent container terminal goals have been reviewed and revised as necessary. Please see the Rehabilitation Signature page for all necessary signatures.
[2018-01-26] MEDS: FE SULF/FA/VIT B COMP & C TAB PO SCH (12:56)
[2018-01-26] MEDS: CLOPIDOGREL 75 MG TABLET PO SCH (12:56)
[2018-01-26] MEDS: CALCIUM CARBONATE CHEW 500MG TAB PO SCH (12:57)
[2018-01-26] MEDS: ASCORBIC ACID 500 MG TABLET PO SCH (12:57)
[2018-01-26] MEDS: ACYCLOVIR 400 MG TABLET PO SCH ×3 (12:57→20:06)
[2018-01-26] MEDS: SEVELAMER CARBONATE 800 MG TABLET PO SCH ×2 (12:57→18:16)
[2018-01-26] MEDS: LISINOPRIL 10 MG TAB PO SCH ×2 (12:57→20:07)
[2018-01-26] MEDS: PROMOD 30 ML DOSE PO SCH ×2 (12:58→20:00)
[2018-01-26] MEDS: CYANOCOBALAMIN 1,000 MCG TAB PO SCH (12:58)
[2018-01-26] MEDS: FERROUS SULFATE 325 MG TAB PO SCH (12:58)
[2018-01-26] MEDS: JUVEN PACKET PO SCH ×2 (12:58→20:00)
[2018-01-26] MEDS: GABAPENTIN 100 MG CAP PO SCH ×2 (12:59→20:07)
--- NOTE | 2018-01-26 13:55 | FAST ---
ENCOUNTER DATE AND TIME: 01/26/2018 08:00 (CDT) NAME MARIBEL MIJARES DATE OF : 1965 DATE OF ADMISSION: 01/13/2018 05:31 (CDT) PHONE: AGE: 52 N# [id number] GENDER: Male ENCOUNTER PHYSICIAN: Dr. Cameron Malcolm M.D. ADMISSION DIAGNOSIS: - Amputation of Limb 05 - Bilateral Lower Limb Below the Knee (BK/BK) (05.7) Bilateral BKA. EATING: Activity did not occur on this shift EATING - SCORE: 0-UNK GROOMING: Comb/brush hair Wash, rinse, and dry face Wash, rinse, and dry hands GROOMING - STEP 1: Does the patient require assistance when grooming? No. GROOMING - SCORE: 7-IND BATHING: Abdomen Buttocks Chest Left arm Left upper leg Perineal area Right arm Right upper leg BATHING - STEP 1: Does the patient require assistance when bathing? Yes. BATHING - STEP 2: Does the patient require the assistance of a helper? No. The patient only requires an assistive devic e such as a bath nella, OR the patient takes more than reasonable time to bathe, OR there is a concern for safety such as regulating water temperature as the patient bathes. BATHING - SCORE: 6-SRAVANTHI DRESSING - UPPER BODY: T-shirt/pullover shirt (four steps) ARTICLES SCORE Total number of steps: 4 DRESSING - UPPER BODY - STEP 1: Does the patient require help when dressing above the waist? No. DRESSING - UPPER BODY - SCORE: 7-IND DRESSING - LOWER BODY: Elastic waist pants (three steps) Underwear (three steps) ARTICLES SCORE Total number of steps: 6 DRESSING - LOWER BODY - STEP 1: Does the patient require help when dressing below the waist? Yes. DRESSING - LOWER BODY - STEP 2: Does the patient require the assistance of a helper? No. Patient requires an assistive device such as a zookeeper. OR s/he takes more than reasonable time as s/he dresses the lower body, OR there is a con cern for safety when s/he dresses the lower body DRESSING - LOWER BODY - SCORE: 6-SRAVANTHI TOILETING: Activity did not occur on this shift TOILETING - SCORE: 0-UNK BLADDER MANAGEMENT: Activity did not occur on this shift BLADDER MANAGEMENT - SCORE: 7-IND BOWEL MANAGEMENT: Activity did not occur on this shift BOWEL MANAGEMENT - SCORE: 7-IND TRANSFERS: BED, CHAIR, WHEELCHAIR: Activity did not occur on this shift TRANSFERS: BED, CHAIR, WHEELCHAIR - SCORE: 0-UNK TRANSFERS: TOILET: Activity did not occur on this shift TRANSFERS: TOILET - SCORE: 0-UNK TRANSFERS: SHOWER: TRANSFERS: SHOWER - STEP 1: Does the patient require assistance with shower transfers? Yes. TRANSFERS: SHOWER - STEP 2: Does the patient require the assistance of a helper? No. The patient only uses an assistive device, t akes more than reasonable time, OR there is a concern for safety when s/he performs transfers. TRANSFERS: SHOWER - SCORE: 6-SRAVANTHI TRANSFERS: TUB: Activity did not occur on this shift TRANSFERS: TUB - SCORE: 0-UNK LOCOMOTION: WALK: Activity did not occur on this shift LOCOMOTION: WALK - SCORE: 0-UNK LOCOMOTION: WHEELCHAIR: Activity did not occur on this shift LOCOMOTION: WHEELCHAIR - SCORE: 0-UNK LOCOMOTION: STAIRS: Activity did not occur on this shift LOCOMOTION: STAIRS - SCORE: 0-UNK COMPREHENSION: COMPREHENSION - STEP 1: Does the patient require help to understand complex and abstract ideas (such as current events, finan caitlyn, discharge planning, medical issues, relationships, etc)? No. COMPREHENSION - STEP 2: Does the patient need extra time, require an assistive device (such as glasses, hearing aids, or an a ugmentative communication system), OR does s/he have mild difficulty expressing complex and abstract ideas (including mild dysarthria or mild word-finding problems)? No. COMPREHENSION - SCORE: 7-IND EXPRESSION EXPRESSION: TYPE: Non-Vocal EXPRESSION - STEP 1: Does the patient require help expressing complex and abstract ideas (such as current events, finances , discharge planning, medical issues, relationships, etc)? No. EXPRESSION - STEP 2: Does the patient need extra time, require an assistive device (such as augmentive communication syste m or a communication board), OR does s/he have mild difficulty expressing complex and abstract ideas (including mild dysarthria or mild word-find problems)? No. EXPRESSION - SCORE: 7-IND SOCIAL INTERACTION: SOCIAL INTERACTION - STEP 1: Does the patient require a helper to interact with others in social and therapeutic situations? No. SOCIAL INTERACTION - STEP 2: Does the patient need extra time in social situations, OR does s/he interact with staff, other patien ts, and family members ONLY in structured environments, OR does s/he require medication for social in teraction? Yes, patient requires medication for social interaction SOCIAL INTERACTION - SCORE: 6-SRAVANTHI PROBLEM SOLVING: PROBLEM SOLVING - STEP 1: Does the patient need help to solve complex problems such as managing a checking account or confronti ng interpersonal problems? No. PROBLEM SOLVING - STEP 2: Does the patient require extra time to make decisions or solve problems, OR does s/he have slight dif ficulty reading, initiating, or self-correcting in unfamiliar situations? No. PROBLEM SOLVING - SCORE: 7-IND MEMORY: MEMORY - STEP 1: Does the patient need help to remember frequently encountered people, daily routines, and executing r equests? No. MEMORY - STEP 2: Does the patient have slight difficulty recognizing frequently encountered people, daily routines, or executing requests without the need for repetition or using self-initiated or environmental cues to remember? No. MEMORY - SCORE: 7-IND SIGNATURE PANEL: The following modified sections: Eating - Score, Grooming - Score, Bathing - Score, Dressing - Upper Body - Score, Dressing - Lower Body - Score, Toileting - Score, Transfers: Bed, Chair, Wheelchair - S core, Transfers: Toilet - Score, Transfers: Shower - Score, Transfers: Tub - Score, Comprehension - S core, Expression - Score, Social Interaction - Score, Problem Solving - Score, Memory - Score were [e lectronically] signed by RAMON Hernández on MonJan 26 2018 13:54:44 T-0500 ([facility])
--- NOTE | 2018-01-26 14:09 | FAST ---
ENCOUNTER DATE AND TIME: 01/26/2018 08:00 (CDT) NAME MARIBEL MIJARES DATE OF : 1965 DATE OF ADMISSION: 01/13/2018 05:31 (CDT) PHONE: AGE: 52 SSN# [id number] GENDER: Male ENCOUNTER PHYSICIAN: Dr. Cameron Malcolm M.D. ADMISSION DIAGNOSIS: - Amputation of Limb 05 - Bilateral Lower Limb Below the Knee (BK/BK) (05.7) Bilateral BKA. EATING: Activity did not occur on this shift EATING - SCORE: 0-UNK GROOMING: Activity did not occur on this shift GROOMING - SCORE: 0-UNK BATHING: Activity did not occur on this shift BATHING - SCORE: 0-UNK DRESSING - UPPER BODY: Activity did not occur on this shift Patient is not dressing in public clothing ARTICLES SCORE Total number of steps: 0 DRESSING - UPPER BODY - SCORE: 0-UNK DRESSING - LOWER BODY: Activity did not occur on this shift Patient is not dressing in public clothing ARTICLES SCORE Total number of steps: 0 DRESSING - LOWER BODY - SCORE: 0-UNK TOILETING: Activity did not occur on this shift TOILETING - SCORE: 0-UNK BLADDER MANAGEMENT: Activity did not occur on this shift BLADDER MANAGEMENT - SCORE: 7-IND BOWEL MANAGEMENT: Activity did not occur on this shift BOWEL MANAGEMENT - SCORE: 7-IND TRANSFERS: BED, CHAIR, WHEELCHAIR: Activity did not occur on this shift TRANSFERS: BED, CHAIR, WHEELCHAIR - SCORE: 0-UNK TRANSFERS: TOILET: Activity did not occur on this shift TRANSFERS: TOILET - SCORE: 0-UNK TRANSFERS: SHOWER: Activity did not occur on this shift TRANSFERS: SHOWER - SCORE: 0-UNK TRANSFERS: TUB: Activity did not occur on this shift TRANSFERS: TUB - SCORE: 0-UNK LOCOMOTION: WALK: Activity did not occur on this shift LOCOMOTION: WALK - SCORE: 0-UNK LOCOMOTION: WHEELCHAIR: LOCOMOTION: WHEELCHAIR - STEP 1: Does the patient need help to go 150 feet in a wheelchair? No. LOCOMOTION: WHEELCHAIR - SCORE: 6-SRAVANTHI LOCOMOTION: STAIRS: Activity did not occur on this shift LOCOMOTION: STAIRS - SCORE: 0-UNK COMPREHENSION: COMPREHENSION - SCORE: 0-UNK EXPRESSION EXPRESSION - SCORE: 0-UNK SOCIAL INTERACTION: SOCIAL INTERACTION - SCORE: 0-UNK PROBLEM SOLVING: PROBLEM SOLVING - SCORE: 0-UNK MEMORY: MEMORY - SCORE: 0-UNK SIGNATURE PANEL: The following modified sections: Transfers: Bed, Chair, Wheelchair - Score, Transfers: Toilet - Score , Locomotion: Walk - Score, Locomotion: Wheelchair - Score, Locomotion: Stairs - Score were [electron ically] signed by Harvinder Sanchez PTA on MonJan 26 2018 14:08:51 GMT-0500 (Central Daylight Time)
--- NOTE | 2018-01-26 15:08 | FAST ---
SHIFT START DATE/TIME: 01/26/2018 07:00 (CDT) SHIFT END DATE/TIME: 01/26/2018 19:00 (CDT) NAME MARIBEL MIJARES DATE OF : 1965 DATE OF ADMISSION: 01/13/2018 05:31 (CDT) PHONE: AGE: 52 N# [id number] GENDER: Male ENCOUNTER PHYSICIAN: Dr. Cameron Malcolm M.D. ADMISSION DIAGNOSIS: - Amputation of Limb 05 - Bilateral Lower Limb Below the Knee (BK/BK) (05.7) Bilateral BKA. EATING: EATING - STEP 1: Does the patient require assistance when eating? Yes. EATING - STEP 2: Does the patient require the assistance of a helper? No, patient only requires an assistive device, O R s/he takes more than reasonable time to eat, OR there is a safety concern, OR s/he requires modifie d food consistency EATING - SCORE: 6-SRAVANTHI GROOMING: Activity did not occur on this shift GROOMING - SCORE: 0-UNK BATHING: Activity did not occur on this shift BATHING - SCORE: 0-UNK DRESSING - UPPER BODY: Activity did not occur on this shift ARTICLES SCORE Total number of steps: 0 DRESSING - UPPER BODY - SCORE: 0-UNK DRESSING - LOWER BODY: Activity did not occur on this shift ARTICLES SCORE Total number of steps: 0 DRESSING - LOWER BODY - SCORE: 0-UNK TOILETING: Activity did not occur on this shift TOILETING - SCORE: 0-UNK BLADDER MANAGEMENT: Patient is on renal dialysis or peritoneal dialysis and no voiding activity BLADDER MANAGEMENT - SCORE: 7-IND BLADDER MANAGEMENT - FREQUENCY OF ACCIDENTS: BLADDER MANAGEMENT(FA) - STEP 1: How many accidents has the patient had during the current shift? 0 BOWEL MANAGEMENT: Activity did not occur on this shift BOWEL MANAGEMENT - SCORE: 7-IND BOWEL MANAGEMENT - FREQUENCY OF ACCIDENTS: BOWEL MANAGEMENT(FA) - STEP 1: How many accidents has the patient had during the current shift? 0 TRANSFERS: BED, CHAIR, WHEELCHAIR: TRANSFERS: BED, CHAIR, WHEELCHAIR - STEP 1: Does the patient require assistance with bed, chair, or wheelchair transfers? Yes. TRANSFERS: BED, CHAIR, WHEELCHAIR - STEP 2: Does the patient require the assistance of a helper? No. Patient only requires an assistive device fo r bed, chair, wheelchair transfers such as a sliding board, grab bar, or brace, OR s/he takes more th an reasonable time, OR there is a safety concern when s/he performs the transfers TRANSFERS: BED, CHAIR, WHEELCHAIR - SCORE: 6-SRAVANTHI TRANSFERS: TOILET: Activity did not occur on this shift TRANSFERS: TOILET - SCORE: 0-UNK TRANSFERS: SHOWER: Activity did not occur on this shift TRANSFERS: SHOWER - SCORE: 0-UNK TRANSFERS: TUB: Activity did not occur on this shift TRANSFERS: TUB - SCORE: 0-UNK LOCOMOTION: WALK: Activity did not occur on this shift LOCOMOTION: WALK - SCORE: 0-UNK LOCOMOTION: WHEELCHAIR: LOCOMOTION: WHEELCHAIR - STEP 1: Does the patient need help to go 150 feet in a wheelchair? Yes. LOCOMOTION: WHEELCHAIR - STEP 2: How much assistance does the patient need from the helper? Only supervision, cuing, or coaxing LOCOMOTION: WHEELCHAIR - SCORE: 5-SUP COMPREHENSION: COMPREHENSION: TYPE: Both COMPREHENSION - STEP 1: Does the patient require help to understand complex and abstract ideas (such as current events, finan caitlyn, discharge planning, medical issues, relationships, etc)? Yes. COMPREHENSION - STEP 2: Does the patient require help to understand questions or statements about basic needs or ideas (such as hunger, thirst, sleep, safety, daily schedule, room location, or discomfort) half or more of the t [place]? No. COMPREHENSION - STEP 3: How often does the patient need help to understand directions and conversation about basic needs? Les s than 10% of the time COMPREHENSION - SCORE: 5-SUP EXPRESSION EXPRESSION: TYPE: Both EXPRESSION - STEP 1: Does the patient require help expressing complex and abstract ideas (such as current events, finances , discharge planning, medical issues, relationships, etc)? Yes. EXPRESSION - STEP 2: Does the patient require help to express basic necessities or ideas (such as hunger, thirst, sleep, s afety, daily schedule, room location, or discomfort) half or more of the time? No. EXPRESSION - STEP 3: How often does the patient need help to express directions and conversation about basic needs? Less t chahal 10% of the time EXPRESSION - SCORE: 5-SUP SOCIAL INTERACTION: SOCIAL INTERACTION - STEP 1: Does the patient require a helper to interact with others in social and therapeutic situations? No. SOCIAL INTERACTION - STEP 2: Does the patient need extra time in social situations, OR does s/he interact with staff, other patien ts, and family members ONLY in structured environments, OR does s/he require medication for social in teraction? Yes, patient needs extra time SOCIAL INTERACTION - SCORE: 6-SRAVATNHI PROBLEM SOLVING: PROBLEM SOLVING - STEP 1: Does the patient need help to solve complex problems such as managing a checking account or confronti ng interpersonal problems? Yes. PROBLEM SOLVING - STEP 2: Does the patient solve basic routine problems half or more of the time? Yes. PROBLEM SOLVING - STEP 3: How often does the patient need help to solve basic routine problems? 10%-24% of the time PROBLEM SOLVING - SCORE: 4-MIN MEMORY: MEMORY - STEP 1: Does the patient need help to remember frequently encountered people, daily routines, and executing r equests? No. MEMORY - STEP 2: Does the patient have slight difficulty recognizing frequently encountered people, daily routines, or executing requests without the need for repetition or using self-initiated or environmental cues to remember? Yes. MEMORY - SCORE: 6-SRAVANTHI SIGNATURE PANEL: The following modified sections: Eating - Score, Grooming - Score, Bathing - Score, Dressing - Upper Body - Score, Dressing - Lower Body - Score, Toileting - Score, Bladder Management - Score, Bowel Man agement - Score, Transfers: Bed, Chair, Wheelchair - Score, Transfers: Toilet - Score, Transfers: Susie wer - Score, Transfers: Tub - Score, Locomotion: Walk - Score, Locomotion: Wheelchair - Score, Compre hension - Score, Expression - Score, Social Interaction - Score, Problem Solving - Score, Memory - Sc ore were [electronically] signed by Larissa [email or web address] on MonJan 26 2018 15:06:46 GMT-0500 (Centra l Daylight Time)
[2018-01-26] MEDS: HYDROCODONE/APAP 5/325 MG TAB PO PRN (15:34)
[2018-01-26] MEDS: DOCUSATE NA/SENNA CONC 1 TAB PO SCH ×2 (20:06→20:16)
[2018-01-26] MEDS: RANITIDINE 150 MG TABLET PO SCH (20:07)
[2018-01-26] MEDS: SERTRALINE HCL 50 MG TAB PO SCH (20:15)
[2018-01-26] MEDS: hydrOXYzine HCl 25 MG TAB PO PRN (20:20)
[2018-01-26] MEDS: TRAMADOL HCL 50 MG TAB PO PRN (20:20)
[2018-01-26] MEDS: HYDROCORTISONE 1 % CREAM 30GM TOP PRN (20:22)
--- NOTE | 2018-01-26 23:55 | PN ---
Date of Progress Note: 01/26/2018 Chief Complaint/history Of Present Illness: End-stage renal disease, on dialysis, status lower extremity amputation for severe nonhealing lower extremity wounds with gangrene. The patient is undergoing a rehab. The patient is dialysis dependent. Dialysis is scheduled today with ultrafiltration. Review of Systems: The patient denies fever or chills. Denies chest pain, nausea, or vomiting. Physical Examination: Lungs: Clear to auscultation bilaterally. Heart: S1, S2. Abdomen: Soft, benign. Extremities: Bilateral above-knee amputation. Laboratory Data: Sodium 139, potassium 4.1, chloride 105, bicarbonate 24, BUN 50, creatinine 5.8, calcium 9.3, phosphorus 4. Assessment And Plan: 1. End-stage renal disease. Dialysis is scheduled for today with ultrafiltration. Volemia, azotemia, and electrolytes are in good control. Continue renal diet, p.o. fluid restriction. 2. Hypertension. Blood pressure controlled optimal. 3. Secondary hyperparathyroidism. Continue current binder and monitor phosphorus level. 4. Anemia in chronic kidney disease, on HALIMA. Continue current treatment. ELMER/DONNA Voice ID: [id number] Report ID: [id number] HEATHER
--- NOTE | 2018-01-27 03:07 | FAST ---
SHIFT START DATE/TIME: 01/26/2018 19:00 (CDT) SHIFT END DATE/TIME: 01/27/2018 07:00 (CDT) NAME MARIBEL MIJARES DATE OF : 1965 DATE OF ADMISSION: 01/13/2018 05:31 (CDT) PHONE: AGE: 52 N# [id number] GENDER: Male ENCOUNTER PHYSICIAN: Dr. Cameron Malcolm M.D. ADMISSION DIAGNOSIS: - Amputation of Limb 05 - Bilateral Lower Limb Below the Knee (BK/BK) (05.7) Bilateral BKA. EATING: Activity did not occur on this shift EATING - SCORE: 0-UNK GROOMING: Activity did not occur on this shift GROOMING - SCORE: 0-UNK BATHING: Activity did not occur on this shift BATHING - SCORE: 0-UNK DRESSING - UPPER BODY: Activity did not occur on this shift ARTICLES SCORE Total number of steps: 0 DRESSING - UPPER BODY - SCORE: 0-UNK DRESSING - LOWER BODY: Activity did not occur on this shift ARTICLES SCORE Total number of steps: 0 DRESSING - LOWER BODY - SCORE: 0-UNK TOILETING: Activity did not occur on this shift TOILETING - SCORE: 0-UNK BLADDER MANAGEMENT: Patient is on renal dialysis or peritoneal dialysis and no voiding activity BLADDER MANAGEMENT - SCORE: 7-IND BLADDER MANAGEMENT - FREQUENCY OF ACCIDENTS: BLADDER MANAGEMENT(FA) - STEP 1: How many accidents has the patient had during the current shift? 0 BOWEL MANAGEMENT: BOWEL MANAGEMENT - STEP 1: Does the patient control bowels completely and intentionally without equipment devices or medications AND is always continent? Yes. BOWEL MANAGEMENT - SCORE: 7-IND BOWEL MANAGEMENT - FREQUENCY OF ACCIDENTS: BOWEL MANAGEMENT(FA) - STEP 1: How many accidents has the patient had during the current shift? 0 TRANSFERS: BED, CHAIR, WHEELCHAIR: TRANSFERS: BED, CHAIR, WHEELCHAIR - STEP 1: Does the patient require assistance with bed, chair, or wheelchair transfers? No. TRANSFERS: BED, CHAIR, WHEELCHAIR - SCORE: 7-IND TRANSFERS: TOILET: TRANSFERS: TOILET - STEP 1: Does the patient require assistance with toilet transfers? No. TRANSFERS: TOILET - SCORE: 7-IND TRANSFERS: SHOWER: Activity did not occur on this shift TRANSFERS: SHOWER - SCORE: 0-UNK TRANSFERS: TUB: Activity did not occur on this shift TRANSFERS: TUB - SCORE: 0-UNK LOCOMOTION: WALK: Activity did not occur on this shift LOCOMOTION: WALK - SCORE: 0-UNK LOCOMOTION: WHEELCHAIR: Activity did not occur on this shift LOCOMOTION: WHEELCHAIR - SCORE: 0-UNK COMPREHENSION: COMPREHENSION - STEP 1: Does the patient require help to understand complex and abstract ideas (such as current events, finan caitlyn, discharge planning, medical issues, relationships, etc)? Yes. COMPREHENSION - STEP 2: Does the patient require help to understand questions or statements about basic needs or ideas (such as hunger, thirst, sleep, safety, daily schedule, room location, or discomfort) half or more of the t [place]? Yes. COMPREHENSION - STEP 3: Is the patient basically able to understand and respond appropriately and consistently? Yes. COMPREHENSION - SCORE: 2-MAX EXPRESSION EXPRESSION: TYPE: Both EXPRESSION - STEP 1: Does the patient require help expressing complex and abstract ideas (such as current events, finances , discharge planning, medical issues, relationships, etc)? Yes. EXPRESSION - STEP 2: Does the patient require help to express basic necessities or ideas (such as hunger, thirst, sleep, s afety, daily schedule, room location, or discomfort) half or more of the time? Yes. EXPRESSION - STEP 3: Is the patient basically unable to express or does s/he express inappropriately or inconsistently massimo pite prompting? No. EXPRESSION - SCORE: 2-MAX SOCIAL INTERACTION: SOCIAL INTERACTION - STEP 1: Does the patient require a helper to interact with others in social and therapeutic situations? No. SOCIAL INTERACTION - STEP 2: Does the patient need extra time in social situations, OR does s/he interact with staff, other patien ts, and family members ONLY in structured environments, OR does s/he require medication for social in teraction? No. SOCIAL INTERACTION - SCORE: 7-IND PROBLEM SOLVING: PROBLEM SOLVING - STEP 1: Does the patient need help to solve complex problems such as managing a checking account or confronti ng interpersonal problems? Yes. PROBLEM SOLVING - STEP 2: Does the patient solve basic routine problems half or more of the time? Yes. PROBLEM SOLVING - STEP 3: How often does the patient need help to solve basic routine problems? Less than 10% of the time PROBLEM SOLVING - SCORE: 5-SUP MEMORY: MEMORY - STEP 1: Does the patient need help to remember frequently encountered people, daily routines, and executing r equests? Yes. MEMORY - STEP 2: How often does the patient need help to remember frequently encountered people, daily routines, and e xecuting requests? Less than 10% of the time MEMORY - SCORE: 5-SUP SIGNATURE PANEL: The following modified sections: Eating - Score, Grooming - Score, Bathing - Score, Dressing - Upper Body - Score, Dressing - Lower Body - Score, Toileting - Score, Bladder Management - Score, Bowel Man agement - Score, Transfers: Bed, Chair, Wheelchair - Score, Transfers: Toilet - Score, Transfers: Susie wer - Score, Transfers: Tub - Score, Locomotion: Walk - Score, Locomotion: Wheelchair - Score, Compre hension - Score, Expression - Score, Social Interaction - Score, Problem Solving - Score, Memory - Sc ore were [electronically] signed by Yolanda Gomez on Sat Jan 27 2018 03:06:41 GMT-0500 (Central Day light Time)
[2018-01-27] MEDS: METOPROLOL TAR 25 MG TAB PO SCH (05:09)
[2018-01-27] MEDS: INSULIN -REGULAR HUMAN 50 UNIT/0.5 ML ML SQ SCH ×4 (07:30→20:22)
[2018-01-27] MEDS: HEPARIN 5000 UNIT/ML 1 ML VIAL SQ SCH ×2 (07:55→20:20)
[2018-01-27] MEDS: FERROUS SULFATE 325 MG TAB PO SCH (08:00)
[2018-01-27] MEDS: GABAPENTIN 100 MG CAP PO SCH ×2 (08:00→20:13)
[2018-01-27] MEDS: ASCORBIC ACID 500 MG TABLET PO SCH ×2 (08:00)
[2018-01-27] MEDS: CALCIUM CARBONATE CHEW 500MG TAB PO SCH ×2 (08:00→08:09)
[2018-01-27] MEDS: JUVEN PACKET PO SCH ×2 (08:00→20:00)
[2018-01-27] MEDS: FE SULF/FA/VIT B COMP & C TAB PO SCH (08:01)
[2018-01-27] MEDS: HYDROCODONE/APAP 5/325 MG TAB PO PRN ×2 (08:01→18:59)
[2018-01-27] MEDS: ACYCLOVIR 400 MG TABLET PO SCH ×3 (08:01→20:13)
[2018-01-27] MEDS: SEVELAMER CARBONATE 800 MG TABLET PO SCH ×3 (08:07→16:51)
[2018-01-27] MEDS: FUROSEMIDE 40 MG TABLET PO SCH (08:08)
[2018-01-27] MEDS: CLOPIDOGREL 75 MG TABLET PO SCH (08:08)
[2018-01-27] MEDS: LISINOPRIL 10 MG TAB PO SCH ×2 (08:08→20:14)
[2018-01-27] MEDS: CYANOCOBALAMIN 1,000 MCG TAB PO SCH (08:09)
[2018-01-27] MEDS: PROMOD 30 ML DOSE PO SCH ×2 (08:09→20:13)
[2018-01-27] MEDS: COLLAGENASE 30 GM OINTMENT TOP SCH ×2 (08:11→20:15)
--- NOTE | 2018-01-27 10:41 | FAST ---
SHIFT START DATE/TIME: 01/27/2018 07:00 (CDT) SHIFT END DATE/TIME: 01/27/2018 19:00 (CDT) NAME MARIBEL MIJARES DATE OF : 1965 DATE OF ADMISSION: 01/13/2018 05:31 (CDT) PHONE: AGE: 52 N# [id number] GENDER: Male ENCOUNTER PHYSICIAN: Dr. Cameron Malcolm M.D. ADMISSION DIAGNOSIS: - Amputation of Limb 05 - Bilateral Lower Limb Below the Knee (BK/BK) (05.7) Bilateral BKA. EATING: EATING - STEP 1: Does the patient require assistance when eating? Yes. EATING - STEP 2: Does the patient require the assistance of a helper? No, patient only requires an assistive device, O R s/he takes more than reasonable time to eat, OR there is a safety concern, OR s/he requires modifie d food consistency EATING - SCORE: 6-SRAVANTHI GROOMING: Activity did not occur on this shift GROOMING - SCORE: 0-UNK BATHING: Activity did not occur on this shift BATHING - SCORE: 0-UNK DRESSING - UPPER BODY: Activity did not occur on this shift ARTICLES SCORE Total number of steps: 0 DRESSING - UPPER BODY - SCORE: 0-UNK DRESSING - LOWER BODY: Activity did not occur on this shift ARTICLES SCORE Total number of steps: 0 DRESSING - LOWER BODY - SCORE: 0-UNK TOILETING: TOILETING - STEP 1: Does the patient require assistance with toileting? Yes. TOILETING - STEP 2: Does the patient require the assistance of a helper? Yes. TOILETING - STEP 3: How much assistance does the patient require from the helper? Hands-on assistance from the helper TOILETING - STEP 4: Of the 3 tasks: 1) Adjusting clothing prior to use, 2) Cleansing of perineal area, 3) Adjusting clot dinorah after use; How many tasks does the patient perform WITHOUT assistance of the helper? Three tasks with steadying assistance from the helper TOILETING - SCORE: 4-MIN BLADDER MANAGEMENT: Patient is on renal dialysis or peritoneal dialysis and no voiding activity BLADDER MANAGEMENT - SCORE: 7-IND BOWEL MANAGEMENT: Activity did not occur on this shift BOWEL MANAGEMENT - SCORE: 7-IND TRANSFERS: BED, CHAIR, WHEELCHAIR: TRANSFERS: BED, CHAIR, WHEELCHAIR - STEP 1: Does the patient require assistance with bed, chair, or wheelchair transfers? Yes. TRANSFERS: BED, CHAIR, WHEELCHAIR - STEP 2: Does the patient require the assistance of a helper? Yes. TRANSFERS: BED, CHAIR, WHEELCHAIR - STEP 3: How much assistance does the patient require from the helper? Steadying/guiding assistance TRANSFERS: BED, CHAIR, WHEELCHAIR - SCORE: 4-MIN TRANSFERS: TOILET: TRANSFERS: TOILET - STEP 1: Does the patient require assistance with toilet transfers? Yes. TRANSFERS: TOILET - STEP 2: Does the patient require the assistance of a helper? Yes. TRANSFERS: TOILET - STEP 3: How much assistance does the patient require from the helper? Patient performs half or more of the tr ansferring tasks TRANSFERS: TOILET - STEP 4: Does the patient need only incidental help such as contact guard or steadying during toilet transfer? Yes. TRANSFERS: TOILET - SCORE: 4-MIN TRANSFERS: SHOWER: Activity did not occur on this shift TRANSFERS: SHOWER - SCORE: 0-UNK TRANSFERS: TUB: Activity did not occur on this shift TRANSFERS: TUB - SCORE: 0-UNK LOCOMOTION: WALK: Activity did not occur on this shift LOCOMOTION: WALK - SCORE: 0-UNK LOCOMOTION: WHEELCHAIR: Activity did not occur on this shift LOCOMOTION: WHEELCHAIR - SCORE: 0-UNK COMPREHENSION: COMPREHENSION - SCORE: 0-UNK EXPRESSION EXPRESSION - SCORE: 0-UNK SOCIAL INTERACTION: SOCIAL INTERACTION - SCORE: 0-UNK PROBLEM SOLVING: PROBLEM SOLVING - SCORE: 0-UNK MEMORY: MEMORY - SCORE: 0-UNK SIGNATURE PANEL: The following modified sections: Eating - Score, Grooming - Score, Bathing - Score, Dressing - Upper Body - Score, Dressing - Lower Body - Score, Toileting - Score, Bladder Management - Score, Bowel Man agement - Score, Transfers: Bed, Chair, Wheelchair - Score, Transfers: Toilet - Score, Transfers: Susie wer - Score, Transfers: Tub - Score, Locomotion: Walk - Score, Locomotion: Wheelchair - Score, Compre hension - Score, Expression - Score, Social Interaction - Score, Problem Solving - Score, Memory - Sc ore were [electronically] signed by Manpreet Kaur on Sat Ian 28 2018 10:41:32 T-0500 (Central Daylight Time)
--- NOTE | 2018-01-27 12:49 | FAST ---
ENCOUNTER DATE AND TIME: 01/27/2018 08:00 (CDT) NAME MARIBEL MIJARES DATE OF : 1965 DATE OF ADMISSION: 01/13/2018 05:31 (CDT) PHONE: AGE: 52 SSN# [id number] GENDER: Male ENCOUNTER PHYSICIAN: Dr. Cameron Malcolm M.D. ADMISSION DIAGNOSIS: - Amputation of Limb 05 - Bilateral Lower Limb Below the Knee (BK/BK) (05.7) Bilateral BKA. EATING: Activity did not occur on this shift EATING - SCORE: 0-UNK GROOMING: Activity did not occur on this shift GROOMING - SCORE: 0-UNK BATHING: Activity did not occur on this shift BATHING - SCORE: 0-UNK DRESSING - UPPER BODY: Activity did not occur on this shift Patient is not dressing in public clothing ARTICLES SCORE Total number of steps: 0 DRESSING - UPPER BODY - SCORE: 0-UNK DRESSING - LOWER BODY: Activity did not occur on this shift Patient is not dressing in public clothing ARTICLES SCORE Total number of steps: 0 DRESSING - LOWER BODY - SCORE: 0-UNK TOILETING: Activity did not occur on this shift TOILETING - SCORE: 0-UNK BLADDER MANAGEMENT: Activity did not occur on this shift BLADDER MANAGEMENT - SCORE: 7-IND BOWEL MANAGEMENT: Activity did not occur on this shift BOWEL MANAGEMENT - SCORE: 7-IND TRANSFERS: BED, CHAIR, WHEELCHAIR: Activity did not occur on this shift TRANSFERS: BED, CHAIR, WHEELCHAIR - SCORE: 0-UNK TRANSFERS: TOILET: Activity did not occur on this shift TRANSFERS: TOILET - SCORE: 0-UNK TRANSFERS: SHOWER: Activity did not occur on this shift TRANSFERS: SHOWER - SCORE: 0-UNK TRANSFERS: TUB: Activity did not occur on this shift TRANSFERS: TUB - SCORE: 0-UNK LOCOMOTION: WALK: Activity did not occur on this shift LOCOMOTION: WALK - SCORE: 0-UNK LOCOMOTION: WHEELCHAIR: LOCOMOTION: WHEELCHAIR - STEP 1: Does the patient need help to go 150 feet in a wheelchair? No. LOCOMOTION: WHEELCHAIR - SCORE: 6-SRAVANTHI LOCOMOTION: STAIRS: Activity did not occur on this shift LOCOMOTION: STAIRS - SCORE: 0-UNK COMPREHENSION: COMPREHENSION - SCORE: 0-UNK EXPRESSION EXPRESSION - SCORE: 0-UNK SOCIAL INTERACTION: SOCIAL INTERACTION - SCORE: 0-UNK PROBLEM SOLVING: PROBLEM SOLVING - SCORE: 0-UNK MEMORY: MEMORY - SCORE: 0-UNK SIGNATURE PANEL: The following modified sections: Transfers: Bed, Chair, Wheelchair - Score, Transfers: Toilet - Score , Locomotion: Walk - Score, Locomotion: Wheelchair - Score, Locomotion: Stairs - Score were [electron ically] signed by Harvinder Sanchez PTA on Sat Jan 27 2018 12:48:39 GMT-0500 (Central Daylight Time)
[2018-01-27] MEDS: TRAMADOL HCL 50 MG TAB PO PRN (13:55)
[2018-01-27] MEDS: DOCUSATE NA/SENNA CONC 1 TAB PO SCH (20:14)
[2018-01-27] MEDS: RANITIDINE 150 MG TABLET PO SCH (20:14)
[2018-01-27] MEDS: SERTRALINE HCL 50 MG TAB PO SCH (20:15)
--- NOTE | 2018-01-28 02:14 | PN ---
Date of Progress Note: 01/27/2018 Chief Complaint: End-stage renal disease, on dialysis. History Of Present Illness: The patient received dialysis yesterday. Procedure was well tolerated. The patient has history of diabetes mellitus, diabetic kidney disease, severe peripheral vascular disease. He underwent bilateral below-knee amputation. Review of Systems: Denies fever, chills. Physical Examination: Lungs: Clear to auscultation bilaterally. Heart: S1, S2. Abdomen: Soft, benign. Extremities: Dressing in place. Impression And Plan: 1. End-stage renal disease. Dialysis on Monday. 2. Anemia in chronic kidney disease. Hold HALIMA. Hemoglobin is 13.3. 3. Renal osteodystrophy. Continue renal diet and binders. 4. Diabetes mellitus. Continue insulin. 5. Hypoalbuminemia. Increase p.o. protein intake. ELMER/DONNA Voice ID: [id number] Report ID: [id number] MTDD
--- NOTE | 2018-01-28 02:37 | FAST ---
SHIFT START DATE/TIME: 01/27/2018 19:00 (CDT) SHIFT END DATE/TIME: 01/28/2018 07:00 (CDT) NAME MARIBEL MIJARES DATE OF : 1965 DATE OF ADMISSION: 01/13/2018 05:31 (CDT) PHONE: AGE: 52 N# [id number] GENDER: Male ENCOUNTER PHYSICIAN: Dr. Cameron Malcolm M.D. ADMISSION DIAGNOSIS: - Amputation of Limb 05 - Bilateral Lower Limb Below the Knee (BK/BK) (05.7) Bilateral BKA. EATING: Activity did not occur on this shift EATING - SCORE: 0-UNK GROOMING: Activity did not occur on this shift GROOMING - SCORE: 0-UNK BATHING: Activity did not occur on this shift BATHING - SCORE: 0-UNK DRESSING - UPPER BODY: Activity did not occur on this shift ARTICLES SCORE Total number of steps: 0 DRESSING - UPPER BODY - SCORE: 0-UNK DRESSING - LOWER BODY: Activity did not occur on this shift ARTICLES SCORE Total number of steps: 0 DRESSING - LOWER BODY - SCORE: 0-UNK TOILETING: Activity did not occur on this shift TOILETING - SCORE: 0-UNK BLADDER MANAGEMENT: Patient is on renal dialysis or peritoneal dialysis and no voiding activity BLADDER MANAGEMENT - SCORE: 7-IND BLADDER MANAGEMENT - FREQUENCY OF ACCIDENTS: BLADDER MANAGEMENT(FA) - STEP 1: How many accidents has the patient had during the current shift? 0 BOWEL MANAGEMENT: BOWEL MANAGEMENT - STEP 1: Does the patient control bowels completely and intentionally without equipment devices or medications AND is always continent? Yes. BOWEL MANAGEMENT - SCORE: 7-IND BOWEL MANAGEMENT - FREQUENCY OF ACCIDENTS: BOWEL MANAGEMENT(FA) - STEP 1: How many accidents has the patient had during the current shift? 0 TRANSFERS: BED, CHAIR, WHEELCHAIR: TRANSFERS: BED, CHAIR, WHEELCHAIR - STEP 1: Does the patient require assistance with bed, chair, or wheelchair transfers? Yes. TRANSFERS: BED, CHAIR, WHEELCHAIR - STEP 2: Does the patient require the assistance of a helper? Yes. TRANSFERS: BED, CHAIR, WHEELCHAIR - STEP 3: How much assistance does the patient require from the helper? Steadying/guiding assistance TRANSFERS: BED, CHAIR, WHEELCHAIR - SCORE: 4-MIN TRANSFERS: TOILET: Activity did not occur on this shift TRANSFERS: TOILET - SCORE: 0-UNK TRANSFERS: SHOWER: Activity did not occur on this shift TRANSFERS: SHOWER - SCORE: 0-UNK TRANSFERS: TUB: Activity did not occur on this shift TRANSFERS: TUB - SCORE: 0-UNK LOCOMOTION: WALK: Activity did not occur on this shift LOCOMOTION: WALK - SCORE: 0-UNK LOCOMOTION: WHEELCHAIR: Activity did not occur on this shift LOCOMOTION: WHEELCHAIR - SCORE: 0-UNK COMPREHENSION: COMPREHENSION: TYPE: Both COMPREHENSION - STEP 1: Does the patient require help to understand complex and abstract ideas (such as current events, finan caitlyn, discharge planning, medical issues, relationships, etc)? Yes. COMPREHENSION - STEP 2: Does the patient require help to understand questions or statements about basic needs or ideas (such as hunger, thirst, sleep, safety, daily schedule, room location, or discomfort) half or more of the t [place]? Yes. COMPREHENSION - STEP 3: Is the patient basically able to understand and respond appropriately and consistently? Yes. COMPREHENSION - SCORE: 2-MAX EXPRESSION EXPRESSION: TYPE: Both EXPRESSION - STEP 1: Does the patient require help expressing complex and abstract ideas (such as current events, finances , discharge planning, medical issues, relationships, etc)? Yes. EXPRESSION - STEP 2: Does the patient require help to express basic necessities or ideas (such as hunger, thirst, sleep, s afety, daily schedule, room location, or discomfort) half or more of the time? Yes. EXPRESSION - STEP 3: Is the patient basically unable to express or does s/he express inappropriately or inconsistently massimo pite prompting? No. EXPRESSION - SCORE: 2-MAX SOCIAL INTERACTION: SOCIAL INTERACTION - STEP 1: Does the patient require a helper to interact with others in social and therapeutic situations? Yes. SOCIAL INTERACTION - STEP 2: Does the patient interact appropriately half or more of the time? Yes. SOCIAL INTERACTION - STEP 3: How often does the patient need help to interact appropriately? Less than 10% of the time SOCIAL INTERACTION - SCORE: 5-SUP PROBLEM SOLVING: PROBLEM SOLVING - STEP 1: Does the patient need help to solve complex problems such as managing a checking account or confronti ng interpersonal problems? Yes. PROBLEM SOLVING - STEP 2: Does the patient solve basic routine problems half or more of the time? Yes. PROBLEM SOLVING - STEP 3: How often does the patient need help to solve basic routine problems? Less than 10% of the time PROBLEM SOLVING - SCORE: 5-SUP MEMORY: MEMORY - STEP 1: Does the patient need help to remember frequently encountered people, daily routines, and executing r equests? Yes. MEMORY - STEP 2: How often does the patient need help to remember frequently encountered people, daily routines, and e xecuting requests? Less than 10% of the time MEMORY - SCORE: 5-SUP SIGNATURE PANEL: The following modified sections: Eating - Score, Grooming - Score, Bathing - Score, Dressing - Upper Body - Score, Dressing - Lower Body - Score, Toileting - Score, Bladder Management - Score, Bowel Man agement - Score, Transfers: Bed, Chair, Wheelchair - Score, Transfers: Toilet - Score, Transfers: Susie wer - Score, Transfers: Tub - Score, Locomotion: Walk - Score, Locomotion: Wheelchair - Score, Compre hension - Score, Expression - Score, Social Interaction - Score, Problem Solving - Score, Memory - Sc ore were [electronically] signed by Yolanda Gomez on MonJan 28 2018 02:37:26 GMT-0500 (Central Day light Time)
[2018-01-28] MEDS: HYDROCODONE/APAP 5/325 MG TAB PO PRN ×2 (03:28→08:14)
[2018-01-28] MEDS: hydrOXYzine HCl 25 MG TAB PO PRN (03:31)
[2018-01-28] MEDS: METOPROLOL TAR 25 MG TAB PO SCH (05:06)
[2018-01-28] MEDS: INSULIN -REGULAR HUMAN 50 UNIT/0.5 ML ML SQ SCH ×2 (07:30→11:19)
[2018-01-28] MEDS: JUVEN PACKET PO SCH (08:00)
[2018-01-28] MEDS: COLLAGENASE 30 GM OINTMENT TOP SCH (08:00)
[2018-01-28] MEDS: PROMOD 30 ML DOSE PO SCH (08:00)
[2018-01-28] MEDS: CALCIUM CARBONATE CHEW 500MG TAB PO SCH (08:00)
[2018-01-28] MEDS: ASCORBIC ACID 500 MG TABLET PO SCH (08:00)
[2018-01-28] MEDS: HEPARIN 5000 UNIT/ML 1 ML VIAL SQ SCH (08:05)
[2018-01-28] MEDS: SEVELAMER CARBONATE 800 MG TABLET PO SCH (08:12)
[2018-01-28] MEDS: LISINOPRIL 10 MG TAB PO SCH (08:13)
[2018-01-28] MEDS: CYANOCOBALAMIN 1,000 MCG TAB PO SCH (08:13)
[2018-01-28] MEDS: FUROSEMIDE 40 MG TABLET PO SCH (08:13)
[2018-01-28] MEDS: FE SULF/FA/VIT B COMP & C TAB PO SCH (08:13)
[2018-01-28] MEDS: ACYCLOVIR 400 MG TABLET PO SCH (08:15)
[2018-01-28] MEDS: GABAPENTIN 100 MG CAP PO SCH (08:15)
[2018-01-28] MEDS: CLOPIDOGREL 75 MG TABLET PO SCH (08:15)
[2018-01-28 08:16] VITALS: BP 175/88
[2018-01-28 09:29] VITALS: TEMP 97.4
[2018-01-28] MEDS: TRAMADOL HCL 50 MG TAB PO PRN (10:45)
--- NOTE | 2018-02-09 15:29 | R.DS ---
FACILITY [facility] MR# [id number] NAME MARIBEL MIJARES ADDRESS [address] [place] [address] [address] [phone] PHONE DATE OF 1965 AGE 52 SSN# [id number] GENDER Male DEXTERITY Right-handed MARITAL STATUS RACE ENCOUNTER PHYSICIAN Dr. Cameron Malcolm M.D. REFERRING DOCTOR DR. MOUNIKA FRENCH REFERRING FACILITY [facility] DISCHARGE DIAGNOSIS: - Amputation of Limb 05 - Bilateral Lower Limb Below the Knee (BK/BK) (05.7) Bilateral BKA. DISCHARGE COMORBIDITIES: - Tier 1 Dependence on renal dialysis (Z99.2) - Tier 3 Type 2 diabetes mellitus with diabetic neuropathy, unspecified (E11.40) - Non-Tiered Infection of amputation stump, unspecified extremity (T87.40) - N/A HYPERTENSION CHF CORONARY ARTERY DISEASE WITH MULTIPLE STENTS ESRD HYPERLIPIDEMIA ANXIETY SEVERE PERIPHERAL VASCULAR DISEASE GERD DATE OF ADMISSION 01/13/2018 05:31 (CDT) MEDICATION ALLERGIES: CLINDAMYCIN ENVIRONMENTAL ALLERGIES: None Known - Substance Allergies None Known - Other Allergies None Known CONSULT: Perform Consult Certified Prosthetic for prosthesis construction NURSING: - Shower allowing shower - Lab Results blood Sugar Check ACHS - Skin care per protocol PRECAUTIONS: - Fall Precaution Bed and chair alarm ACTIVITIES OOB only with supervision THERAPIES: - Orthotics/Prosthetics Prosthetic Evaluation - Occupational Therapy Evaluate and Treat - Physical Therapy Evaluate and Treat HISTORY OF PRESENT ILLNESS: Pt. is a 52 yo Right-handed male.On 12/26/2017 he was admitted to [facility] with diagnosis Bilateral BKA.His impairment category is Amputation of Limb 05 - Bilateral Low er Limb Below the Knee (BK/BK) (05.7).Pre-morbidly, Pt. was independent/mod-I in Self-Care, Sphincter Control, Communication, and Social Cognition; and he had good Sphincter Control.Currently, he has de ficits of Safety Awareness, Transfers Control, Balance, Locomotion, Endurance, and Self-Care.Pt. is n ow referred to [facility] for acute in-patient rehabilitation in order to maxi jose patient's functional independence in activities of daily living, strength, ROM, and mobility.- R ehab Goal Patient has realistic goal of being discharged at assistance level 6-Sharon to reside at Home with Fam jacqueline/Relatives. HOSPITAL COURSE: On 01/22/2018 the following precautions were added for the patient: Fall Precaution - Bed and chair alarm. On 01/12/2018 the following precautions were added for the patient: Fall Precaution - Bed and chair a larm. On 01/15/2018 the following precautions were added for the patient: Fall Precaution - Bed and chair alarm. On 01/16/2018 the following precautions were removed for the patient: Fall Precaution - Bed and kourtney r alarm. The following precautions were removed for the patient: Fall Precaution - Bed and chair alarm, and F all Precaution - Bed and chair alarm. On 01/15/2018 the following precautions were added for the patient: Weight Bearing Precaution - TTWB left LE. On 01/16/2018 the following precautions were removed for the patient: Weight Bearing Precaution - TT WB left LE. The following precautions were added for the patient: Weight Bearing Precaution - TTWB left LE. On 01/22/2018 the following precautions were removed for the patient: Weight Bearing Precaution - TTW B left LE. The following precautions were added for the patient: Weight Bearing Precaution - TTWB left LE. DIET - LIQUID TEXTURE: On 01/12/2018 Pt was upgraded to Regular Diet - Liquid Texture. DIET - SOLID TEXTURE: On 01/12/2018 Pt was upgraded to Regular Diet - Solid Texture. DIET TYPE: On 01/12/2018 Pt was upgraded to Regular Diet Type. FALL PRECAUTION: TUBE FEED: On 01/12/2018 Pt was changed to N/A Tube Feed. WEIGHT BEARING PRECAUTION: DISCHARGE PHYSICAL EXAM - Gen Alert and awake Lying in bed No apparent distress Oriented to: person, time, and place - Skin left lower extremity incisions intact Normacephalic - Eyes No abnormalities - ENMT No abnormalities - Neck No abnormalities - CVS RRR - Chest Clear - Resp Clear to auscultation - Abd Soft - GI Non distended Deferred - No abnormalities - Ext No significant edema. - MSK No Stiffness - Neuro Incoordination and left leg weakness. - Psych No abnormalities FUNCTIONAL STATUS: - Self-Care A. Eating 7-Ind 7-Ind B. Grooming 7-Ind 7-Ind C. Bathing 5-sup 6-Sharon D. Dressing - Upper 5-sup 7-Ind E. Dressing - Lower 4-Vinny 7-Ind F. Toileting 4-Vinny 6-Sharon - Sphincter Control G: Bladder control 7-Ind 7-Ind H: Bowel control 7-Ind 7-Ind - Transfers Control I. Bed/Chair/Wheelchair 4-Vinny 7-Ind J. Toilet 4-Vinny 6-Sharon K. Tub/Shower 0-ADNO 6-Sharon - Locomotion L. Walk/Wheelchair (C) 4-Vinny 6-Sharon L. Walk/Wheelchair (W) 4-Vinny 4-Vinny M. Stairs 0-ADNO 0-ADNO - Communication N. Comprehension (B) 6-Sharon 6-Sharon O. Expression (B) 6-Sharon 6-Sharon - Social Cognition P. Social Interaction 6-Sharon 6-Sharon Q. Problem Solving 6-Sharon 6-Sharon R. Memory 6-Sharon 6-Sharon - Endurance Fair - Balance Fair - Safety Awareness Fair DISCHARGE INSTRUCTIONS: - N/A Plavix 75 mg daily. Heparin 5000 units q12 hours. DISCHARGE PLAN, FOLLOW UP CARE PROVISIONS: - Estimated Length of Stay (days) 11. - Consensus on plan Discharge plan has been discussed with primary caregiver. Patient/Family is in agreement with the sussy n. Primary caregiver is in agreement with the plan. - Patient/Family Goals Return home with assistance. - Planned Living Setting Upon Discharge Home, to live with Family/Relatives. SIGNATURE PANEL: (CDT)
== END 2018-01-28 11:45 | disposition home health service (06) | DRG 299 ==
LOC: 5TH 01-13 05:31
PROVIDERS: ADMIT Psychiatry & Neurology Neurology with Special Qualifications in Child Neurology; ATTEND Psychiatry & Neurology Neurology with Special Qualifications in Child Neurology
PROC: 5A1D70Z Performance of Urinary Filtration, Intermittent, Less than 6 Hours Per Day (ICD-10-PCS; 2018-01-15)
PROC: 5A1D70Z Performance of Urinary Filtration, Intermittent, Less than 6 Hours Per Day (ICD-10-PCS; 2018-01-17)
PROC: 5A1D70Z Performance of Urinary Filtration, Intermittent, Less than 6 Hours Per Day (ICD-10-PCS; 2018-01-19)
PROC: 5A1D70Z Performance of Urinary Filtration, Intermittent, Less than 6 Hours Per Day (ICD-10-PCS; 2018-01-22)
PROC: 5A1D70Z Performance of Urinary Filtration, Intermittent, Less than 6 Hours Per Day (ICD-10-PCS; 2018-01-24)
PROC: 5A1D70Z Performance of Urinary Filtration, Intermittent, Less than 6 Hours Per Day (ICD-10-PCS; principal; 2018-01-26)
DX: I73.9 Peripheral vascular disease, unspecified (principal); N18.6 End stage renal disease; I13.2 Hypertensive heart and chronic kidney disease with heart failure and with stage 5 chronic kidney disease, or end stage renal disease; N25.81 Secondary hyperparathyroidism of renal origin; E46 Unspecified protein-calorie malnutrition; D63.1 Anemia in chronic kidney disease; L29.9 Pruritus, unspecified; E11.22 Type 2 diabetes mellitus with diabetic chronic kidney disease; I50.9 Heart failure, unspecified; E78.5 Hyperlipidemia, unspecified; N25.0 Renal osteodystrophy; E11.40 Type 2 diabetes mellitus with diabetic neuropathy, unspecified; Z99.2 Dependence on renal dialysis; Z89.512 Acquired absence of left leg below knee; Z89.511 Acquired absence of right leg below knee; Z68.21 Body mass index [BMI] 21.0-21.9, adult
CPT/HCPCS: 36415; 80048; 80069; 80202; 82040; 82962; 83735; 84100; 84134; 85025; 90935; J1644; J3590; Q4081

== ENCOUNTER 2018-02-26 08:08 | Observation (INO) | payer OTHER, BC ==
[2018-02-26] MEDS ORDERED: NA CHLORIDE 0.9% 1,000 ML ONE (09:14)
[2018-02-26] MEDS ORDERED: ONDANSETRON 4 MG/2 ML VIAL ONE ×2 (09:14→10:46)
[2018-02-26 09:32] LABS: Protime INR 1.31
[2018-02-26 09:33] LABS: Absolute Lymphocytes (CBC) 0.2 K/uL (0.7-4.9); Absolute Monocytes 0.3 K/uL (0.1-1.3); Absolute Neutrophil 8.8 K/uL (1.8-8.0); Basophils % 0.2 % (0-1.3); Hematocrit 40.7 % (39.6-49.0); Lymphocytes % 2.5 % (15.3-44.8); MCH 29.3 pg (27.0-35.0); MCV 91.2 fL (80-100); MPV 9.1 fL (7.6-11.3); Monocytes % 3.3 % (3.3-12.3); RBC Red Blood Cell Count 4.47 M/uL (4.33-5.43)
--- NOTE | 2018-02-26 09:37 | EKG ---
Test Date: 2018-02-26 Test Time: 09:22:06 Psychometric Examiner: DAREK MEASUREMENT RESULTS: Intervals: Rate: 89 [place]: 152 QRSD: 126 QT: 396 QTc: 481 [place]: P: 65 [place]: 152 QRS: -28 T: 182 INTERPRETIVE STATEMENTS: Sinus rhythm with occasional premature ventricular complexes Nonspecific intraventricular block T wave abnormality, consider inferolateral ischemia Abnormal ECG Compared to ECG 12/26/2017 11:51:37 T-wave abnormality now present Left ventricular hypertrophy no longer present ST (T wave) deviation no longer present Prolonged QT interval no longer present Possible ischemia still present Electronically Signed On 02-26-18 09:36:52 CDT by Jayden Matta
[2018-02-26 09:57] LABS: ALT/SGPT 194 U/L (12-78); AST/SGOT 257 U/L (15-37); Albumin 3.4 g/dL (3.4-5.0); Alkaline Phosphatase 141 U/L (45-117); BUN Blood Urea Nitrogen 66 mg/dL (7-18); Bicarbonate 19 mmol/L (21-32); Bilirubin Direct 0.7 mg/dL (0-0.2); Bilirubin Total 1.2 mg/dL (0.2-1.0); CKMB Creatine Kinase MB 3.6 ng/mL (0.3-3.6); Creatine Phosphokinase 81 U/L (39-308); Glucose Level 187 mg/dL (74-106); Lipase 112 U/L (73-393); Magnesium 2.6 mg/dL (1.8-2.4); NT PRO-BNP > 35000 pg/mL (<125); Sodium Level 133 mmol/L (136-145)
[2018-02-26 10:00] LABS: Potassium 6.3 mmol/L (3.5-5.1)
--- NOTE | 2018-02-26 10:04 | ER ---
Nurse's Notes [facility] Name: Justus Prasad Age: 52 yrs Sex: Male : 1965 Arrival Date: 02/26/2018 Time: 08:11 Bed 6 Private MD: Gino Alvarado H Diagnosis: Vomiting;End stage renal disease;Hyperkalemia;Type 1 diabetes mellitus Presentation: 02/26 08:37 Presenting complaint: Patient states: has had n/v right abd pain since Monday night, iw denies CP, c/o mild SOB, last dialysis was Monday. Transition of care: patient was not received from another setting of care. Onset of symptoms was February 24, 2018. Risk Assessment: Do you want to hurt yourself or someone else? Patient reports no desire to harm self or others. Initial Sepsis Screen: Does the patient meet any 2 criteria? No. Patient's initial sepsis screen is negative. Does the patient have a suspected source of infection? No. Patient's initial sepsis screen is negative. Care prior to arrival: None. 08:37 Method Of Arrival: Wheelchair iw 08:37 Acuity: KUNAL 3 iw Historical: - Allergies: 08:39 Clindamycin; iw - Home Meds: 08:39 alprazolam 0.25 mg Oral tab as needed [Active]; aspirin 81 mg Oral TbEC 1 tab once iw daily [Active]; Insulin: Novolin 70/30 sliding scale Sub-Q before meals [Active]; lisinopril 5 mg Oral tab 1 tab on Tues, Thurs, Sat and Sun only [Active]; Lyrica 50 mg Oral 2 times per day [Active]; metoprolol tartrate 25 mg Oral tab 1 tab 2 times per day [Active]; Nitroglycerin Oral as needed [Active]; Plavix 75 mg Oral tab 1 tab once daily [Active]; Renvela 800 mg Oral tab 2 tabs 3 times per day [Active]; - PMHx: 08:39 cardiac stents; CHF; Diabetes - IDDM; DIALYSIS MWF; ESRD; Hypertension; Myocardial iw infarction; - PSHx: 08:39 right BKA; R chest wall dialysis shunt; left BKA; iw - Immunization history:: Adult Immunizations up to date. - Social history:: Smoking status: Patient/guardian denies using tobacco. - Ebola Screening: : Patient negative for fever greater than or equal to 101.5 degrees Fahrenheit, and additional compatible Ebola Virus Disease symptoms Patient denies exposure to infectious person Patient denies travel to an Ebola-affected area in the 21 days before illness onset No symptoms or risks identified at this time. - Family history:: not pertinent. Screenin:00 Abuse screen: Denies threats or abuse. Nutritional screening: No deficits noted. aa5 Tuberculosis screening: No symptoms or risk factors identified. 13:14 Fall Risk None identified. aj Assessment: 09:00 General: Appears comfortable, Behavior is calm, cooperative. Pain: Complains of pain in aa5 right upper quadrant Pain does not radiate. Pain currently is 8 out of 10 on a pain scale. Quality of pain is described as sharp, Pain began pt states "at least 6 months ago and I know it's because I have gallbladder stones but Dr. Mclaughlin can't operate on me because of all my other issues" Is intermittent. Neuro: Level of Consciousness is awake, alert, obeys commands, Oriented to person, place, time, situation. Cardiovascular: Heart tones S1 S2 present Dialysis catheter noted to right upper chest . Rhythm is regular. Respiratory: Reports intermittent SOB since yesterday. Denies cough Airway is patent Respiratory effort is even, unlabored, Respiratory pattern is regular, symmetrical, Breath sounds are clear bilaterally. GI: Abdomen is round non-distended, Bowel sounds present X 4 quads. Abdomen is tender to palpation in right upper quadrant Reports nausea, vomiting, Patient currently denies diarrhea. : Reports "I only make a small amount of urine now". EENT: No signs and/or symptoms were reported regarding the EENT system. Derm: Skin is pink, warm \\T\\ dry. Wounds noted to alok BKA. Wound that is approximately 2 in in diameter noted to right BKA and quater-sized wound noted to left BKA, no drainage noted, no redness noted, yellowish tissue noted to wounds. Scab noted to left knee, pt states "I don't know how I got that scab". Pt states "I go to wound care on tuesdays and see Dr. Mclaughlin and I also have home health". Wound to alok BKA with gauze and jered bandages. Musculoskeletal: Alok BKA noted. 10:27 General: Appears in no apparent distress. comfortable, Behavior is calm, cooperative, aj appropriate for age. Pain: Complains of pain in abdomen. Neuro: Level of Consciousness is awake, alert, obeys commands, Oriented to person, place, time, situation, Appropriate for age. Cardiovascular: Dialysis shunt: Dialysis access to left upper chest. Respiratory: Airway is patent Respiratory effort is even, unlabored, Respiratory pattern is regular, symmetrical. GI: Abdomen is flat, non-distended, Reports lower abdominal pain, upper abdominal pain, nausea. :. Derm: Skin is intact, is healthy with good turgor, Skin is pink, warm \\T\\ dry. normal. 12:57 Reassessment: Patient appears in no apparent distress at this time. No changes from aj previously documented assessment. Patient and/or family updated on plan of care and expected duration. Pain level reassessed. Patient is alert, oriented x 3, equal unlabored respirations, skin warm/dry/pink. Patient denies pain at this time. Patient states feeling better. Patient states symptoms have improved. Vital Signs: 08:39 BP 150 / 101; Pulse 99; Resp 18 S; Pulse Ox 96% on R/A; Weight 56.7 kg; Pain 8/10; iw 09:00 Temp 97.6(O); dh3 09:00 BP 159 / 95; Pulse 94; Resp 17; Pulse Ox 96% on R/A; dh3 10:00 BP 158 / 102; Pulse 97; Resp 16; Pulse Ox 96% on R/A; dh3 11:00 BP 155 / 94; Pulse 99; Resp 24; Pulse Ox 96% on R/A; dh3 12:00 BP 161 / 80; Pulse 100; Resp 22; Pulse Ox 95% on R/A; dh3 12:52 BP 161 / 80; Pulse 94; Resp 18; Pulse Ox 98% on R/A; aj 13:14 BP 168 / 82; Pulse 92; Resp 17; Pulse Ox 99% on R/A; aj ED Course: 08:11 Patient arrived in ED. mr 08:11 Gino Alvarado DO is Private Physician. mr 08:25 James Toure MD is Attending Physician. morena 08:37 Triage completed. iw 08:39 Arm band placed on. iw 08:54 Yelitza Scott, PANDA is Primary Nurse. aa5 09:00 Patient has correct armband on for positive identification. Placed in gown. Bed in low aa5 position. Call light in reach. Side rails up X2. 09:06 Initial lab(s) drawn, by me, sent to lab. Inserted saline lock: 20 gauge in right dh3 antecubital area, using aseptic technique. Blood collected. 09:28 EKG done, by veterinary surgery technologist. reviewed by James Toure MD. at1 09:46 X-ray completed. Portable x-ray completed in exam room. Patient tolerated procedure mh1 well. 09:48 Report given to PANDA Carlton. aa5 09:49 XRAY Chest (1 view) In Process Unspecified. EDMS 10:03 Zane Mcrae DO is Hospitalizing Provider. morena 10:27 Primary Nurse role handed off by Yelitza Scott RN aj 10:27 Bianka Ritchie RN is Primary Nurse. aj 12:06 Ultrasound completed. Patient tolerated well. Note: US DONE PORTABLE/BEDSIDE. gayle 13:14 No provider procedures requiring assistance completed. Patient admitted, IV remains in aj place. Administered Medications: 09:15 Drug: Zofran 4 mg Route: IVP; Site: right antecubital; aa5 09:25 Follow up: Response: No adverse reaction aa5 09:15 Drug: NS 0.9% 1000 ml Route: IV; Rate: 75 ml/hr; Site: right antecubital; aa5 10:29 Drug: Insulin Regular Human 10 units {Co-Signature: jl7 (Colton Pool RN).} Route: IVP; aj Site: right antecubital; 10:57 Follow up: Response: No adverse reaction aj 10:29 Drug: Albuterol - atroVENT (3:1) (2.5 mg - 0.5 mg) 3 ml Route: Nebulizer; aj 10:53 Follow up: Response: No adverse reaction aj 10:29 Drug: fentaNYL (PF) 25 mcg Route: IVP; Site: right antecubital; aj 10:53 Follow up: Response: Pain is decreased aj 10:30 Drug: Sodium Bicarbonate 1 amp Route: IVP; Site: right antecubital; aj 10:56 Follow up: Response: No adverse reaction aj 10:30 Drug: D50W 50 ml Route: IVP; Site: right antecubital; aj 10:56 Follow up: Response: No adverse reaction aj 10:31 Drug: Lasix 100 mg Route: IVP; Site: right antecubital; aj 10:53 Follow up: Response: No adverse reaction aj 10:53 Drug: Zofran 4 mg Route: IVP; Site: right antecubital; aj 11:28 Follow up: Response: No adverse reaction; Nausea is decreased aj 11:15 Drug: Calcium Gluconate 1 grams Route: IVPB; Infused Over: 20 mins; Site: left aj antecubital; 12:51 Follow up: Response: No adverse reaction; IV Status: Completed infusion; IV Intake: aj 100ml 12:04 Drug: fentaNYL (PF) 25 mcg Route: IVP; Site: right antecubital; aj 12:51 Follow up: Response: Pain is decreased aj 13:14 Drug: Kayexalate 30 grams Route: PO; aj 13:14 Follow up: Response: No adverse reaction aj Intake: 12:51 IV: 100ml; Total: 100ml. sabra Outcome: 10:04 Decision to Hospitalize by Provider. morena 13:14 Admitted to Tele accompanied by tech, via wheelchair, room 212, with chart, Report aj called to Fátima RN 13:14 Condition: good 13:14 Instructed on the need for admit. 13:29 Patient left the ED. sabra Signatures: Dispatcher [employer] EDBianka Giron, RN James Mcginnis MD MD cha Rivera, Maria Letitia Branham mh1 Dominique Akhtar RN Yelitza Tena RN RN Bianka Auqino, career services representative EKG [facility]1 Des Diaz jd, Deanna [facility] Colton Pool RN [email or web address] Corrections: (The following items were deleted from the chart) 09:59 09:00 Cardiovascular: Heart tones S1 S2 present Rhythm is regular aa5 aa5 10:18 09:00 Derm: Skin is pink, warm \\T\\ dry. aa5 aa5 13:29 13:28 Reassessment: Patient appears in no apparent distress at this time. Patient is aj alert/active/playful, equal unlabored respirations, skin warm/dry/pink. Patient states feeling better. aj
--- NOTE | 2018-02-26 10:04 | EDPHYS ---
Physician Documentation [facility] Name: Justus Prasad Age: 52 yrs Sex: Male : 1965 Arrival Date: 02/26/2018 Time: 08:11 Bed 6 Private MD: Gino Alvarado H ED Physician James Toure HPI: 02/26 09:10 This 52 yrs old Male presents to ER via Wheelchair with complaints of Vomiting.morena 09:10 The patient presents to the emergency department with nausea, vomiting, that is morena continuous. Onset: The symptoms/episode began/occurred 1 day(s) ago. Possible causes: unknown. The symptoms are alleviated by nothing. Associated signs and symptoms: The patient has no apparent associated signs or symptoms. Severity of symptoms: At their worst the symptoms were mild in the emergency department the symptoms are unchanged. The patient has experienced similar episodes in the past, several times. Historical: - Allergies: 08:39 Clindamycin; iw - Home Meds: 08:39 alprazolam 0.25 mg Oral tab as needed [Active]; aspirin 81 mg Oral TbEC 1 tab once iw daily [Active]; Insulin: Novolin 70/30 sliding scale Sub-Q before meals [Active]; lisinopril 5 mg Oral tab 1 tab on Tues, Thurs, Sat and Sun only [Active]; Lyrica 50 mg Oral 2 times per day [Active]; metoprolol tartrate 25 mg Oral tab 1 tab 2 times per day [Active]; Nitroglycerin Oral as needed [Active]; Plavix 75 mg Oral tab 1 tab once daily [Active]; Renvela 800 mg Oral tab 2 tabs 3 times per day [Active]; - PMHx: 08:39 cardiac stents; CHF; Diabetes - IDDM; DIALYSIS MWF; ESRD; Hypertension; Myocardial iw infarction; - PSHx: 08:39 right BKA; R chest wall dialysis shunt; left BKA; iw - Immunization history:: Adult Immunizations up to date. - Social history:: Smoking status: Patient/guardian denies using tobacco. - Ebola Screening: : Patient negative for fever greater than or equal to 101.5 degrees Fahrenheit, and additional compatible Ebola Virus Disease symptoms Patient denies exposure to infectious person Patient denies travel to an Ebola-affected area in the 21 days before illness onset No symptoms or risks identified at this time. - Family history:: not pertinent. ROS: 09:10 Constitutional: Negative for fever, chills, and weight loss, Eyes: Negative for injury, morena pain, redness, and discharge, ENT: Negative for injury, pain, and discharge, Neck: Negative for injury, pain, and swelling, Cardiovascular: Negative for chest pain, palpitations, and edema, Respiratory: Negative for shortness of breath, cough, wheezing, and pleuritic chest pain, Back: Negative for injury and pain, : Negative for injury, bleeding, discharge, and swelling, MS/Extremity: Negative for injury and deformity, Skin: Negative for injury, rash, and discoloration, Neuro: Negative for headache, weakness, numbness, tingling, and seizure, Psych: Negative for depression, anxiety, suicide ideation, homicidal ideation, and hallucinations, Allergy/Immunology: Negative for hives, rash, and allergies, Endocrine: Negative for neck swelling, polydipsia, polyuria, polyphagia, and marked weight changes, Hematologic/Lymphatic: Negative for swollen nodes, abnormal bleeding, and unusual bruising. 09:10 Abdomen/GI: Positive for nausea and vomiting. Exam: 09:10 Constitutional: This is a well developed, well nourished patient who is awake, alert, morena and in no acute distress. Head/Face: Normocephalic, atraumatic. Eyes: Pupils equal round and reactive to light, extra-ocular motions intact. Lids and lashes normal. Conjunctiva and sclera are non-icteric and not injected. Cornea within normal limits. Periorbital areas with no swelling, redness, or edema. ENT: Nares patent. No nasal discharge, no septal abnormalities noted. Tympanic membranes are normal and external auditory canals are clear. Oropharynx with no redness, swelling, or masses, exudates, or evidence of obstruction, uvula midline. Mucous membranes moist. Neck: Trachea midline, no thyromegaly or masses palpated, and no cervical lymphadenopathy. Supple, full range of motion without nuchal rigidity, or vertebral point tenderness. No Meningismus. Chest/axilla: Normal chest wall appearance and motion. Nontender with no deformity. No lesions are appreciated. Cardiovascular: Regular rate and rhythm with a normal S1 and S2. No gallops, murmurs, or rubs. Normal PMI, no JVD. No pulse deficits. Respiratory: Lungs have equal breath sounds bilaterally, clear to auscultation and percussion. No rales, rhonchi or wheezes noted. No increased work of breathing, no retractions or nasal flaring. Abdomen/GI: Soft, non-tender, with normal bowel sounds. No distension or tympany. No guarding or rebound. No evidence of tenderness throughout. Back: No spinal tenderness. No costovertebral tenderness. Full range of motion. Male : Normal genitalia with no discharge or lesions. Skin: Warm, dry with normal turgor. Normal color with no rashes, no lesions, and no evidence of cellulitis. Neuro: Awake and alert, GCS 15, oriented to person, place, time, and situation. Cranial nerves II-XII grossly intact. Motor strength 5/5 in all extremities. Sensory grossly intact. Cerebellar exam normal. Normal gait. Psych: Awake, alert, with orientation to person, place and time. Behavior, mood, and affect are within normal limits. Vital Signs: 08:39 BP 150 / 101; Pulse 99; Resp 18 S; Pulse Ox 96% on R/A; Weight 56.7 kg; Pain 8/10; iw 09:00 Temp 97.6(O); dh3 09:00 BP 159 / 95; Pulse 94; Resp 17; Pulse Ox 96% on R/A; dh3 10:00 BP 158 / 102; Pulse 97; Resp 16; Pulse Ox 96% on R/A; dh3 11:00 BP 155 / 94; Pulse 99; Resp 24; Pulse Ox 96% on R/A; dh3 12:00 BP 161 / 80; Pulse 100; Resp 22; Pulse Ox 95% on R/A; dh3 12:52 BP 161 / 80; Pulse 94; Resp 18; Pulse Ox 98% on R/A; aj 13:14 BP 168 / 82; Pulse 92; Resp 17; Pulse Ox 99% on R/A; aj MDM: 08:25 Patient medically screened. [facility] 09:16 Data reviewed: vital signs, nurses notes, lab test result(s), EKG, radiologic studies, morena plain films. 02/26 08:55 Order name: Basic Metabolic Panel; Complete Time: 10:13 [facility] 02/26 08:55 Order name: CBC with Diff [facility] 02/26 08:55 Order name: Ckmb; Complete Time: 10:13 [facility] 02/26 08:55 Order name: CPK; Complete Time: 10:13 [facility] 02/26 08:55 Order name: LFT's; Complete Time: 10:13 [facility] 02/26 08:55 Order name: Magnesium; Complete Time: 10:13 [facility] 02/26 08:55 Order name: NT PRO-BNP; Complete Time: 10:13 [facility] 02/26 08:55 Order name: PT-INR; Complete Time: 10:00 [facility] 02/26 08:55 Order name: Ptt, Activated; Complete Time: 10:00 [facility] 02/26 08:55 Order name: Troponin (emerg Dept Use Only); Complete Time: 10:00 [facility] 02/26 08:55 Order name: XRAY Chest (1 view) [facility] 02/26 08:55 Order name: Lipase; Complete Time: 10:13 [facility] 02/26 09:38 Order name: CBC Smear Scan [facility] 02/26 11:19 Order name: US Abdomen Limited [facility] 02/26 08:55 Order name: EKG; Complete Time: 08:56 [facility] 02/26 08:55 Order name: Cardiac monitoring; Complete Time: 09:06 [facility] 02/26 10:08 Order name: CONS Physician Consult [facility] 02/26 12:28 Order name: US [facility] 02/26 08:55 Order name: EKG - Nurse/Tech; Complete Time: 09:15 [facility] 02/26 08:55 Order name: IV Saline Lock; Complete Time: 09:12 [facility] 02/26 08:55 Order name: Labs collected and sent; Complete Time: 09:12 [facility] 02/26 08:55 Order name: O2 Per Protocol; Complete Time: 09:06 [facility] 02/26 08:55 Order name: O2 Sat Monitoring; Complete Time: 09:06 [facility] Administered Medications: 09:15 Drug: Zofran 4 mg Route: IVP; Site: right antecubital; aa5 09:25 Follow up: Response: No adverse reaction aa5 09:15 Drug: NS 0.9% 1000 ml Route: IV; Rate: 75 ml/hr; Site: right antecubital; aa5 10:29 Drug: Insulin Regular Human 10 units {Co-Signature: [email or web address] (Colton Pool RN).} Route: IVP; aj Site: right antecubital; 10:57 Follow up: Response: No adverse reaction aj 10:29 Drug: Albuterol - atroVENT (3:1) (2.5 mg - 0.5 mg) 3 ml Route: Nebulizer; aj 10:53 Follow up: Response: No adverse reaction aj 10:29 Drug: fentaNYL (PF) 25 mcg Route: IVP; Site: right antecubital; aj 10:53 Follow up: Response: Pain is decreased aj 10:30 Drug: Sodium Bicarbonate 1 amp Route: IVP; Site: right antecubital; aj 10:56 Follow up: Response: No adverse reaction aj 10:30 Drug: D50W 50 ml Route: IVP; Site: right antecubital; aj 10:56 Follow up: Response: No adverse reaction aj 10:31 Drug: Lasix 100 mg Route: IVP; Site: right antecubital; aj 10:53 Follow up: Response: No adverse reaction aj 10:53 Drug: Zofran 4 mg Route: IVP; Site: right antecubital; aj 11:28 Follow up: Response: No adverse reaction; Nausea is decreased aj 11:15 Drug: Calcium Gluconate 1 grams Route: IVPB; Infused Over: 20 mins; Site: left aj antecubital; 12:51 Follow up: Response: No adverse reaction; IV Status: Completed infusion; IV Intake: aj 100ml 12:04 Drug: fentaNYL (PF) 25 mcg Route: IVP; Site: right antecubital; aj 12:51 Follow up: Response: Pain is decreased aj 13:14 Drug: Kayexalate 30 grams Route: PO; aj 13:14 Follow up: Response: No adverse reaction aj Disposition: 02/26/18 10:04 Hospitalization ordered by Zane Mcrae for Observation. Preliminary diagnosis are Vomiting, End stage renal disease, Hyperkalemia, Type 1 diabetes mellitus. - Bed requested for Telemetry/MedSurg (observation). - Status is Observation. aj - Condition is Stable. - Problem is new. - Symptoms have improved. UTI on Admission? No Signatures: Dispatcher [employer] EDCrissy Azevedo Amanda, RN RN aj Anderson, Corey, MD MD cha Williams, Irene, RN RN Yelitza Woodard RN RN aa5 Colton Pool RN [email or web address] Corrections: (The following items were deleted from the chart) 12:51 10:04 Hospitalization Ordered by Zane Mcrae DO for Observation. Preliminary bd diagnosis is Vomiting; End stage renal disease; Hyperkalemia; Type 1 diabetes mellitus. Bed requested for Telemetry/MedSurg (observation). Status is Observation. Condition is Stable. Problem is new. Symptoms have improved. UTI on Admission? No. morena 13:29 12:51 02/26/2018 10:04 Hospitalization Ordered by Zane Mcrae DO for Observation. aj Preliminary diagnosis is Vomiting; End stage renal disease; Hyperkalemia; Type 1 diabetes mellitus. Bed requested for Telemetry/MedSurg (observation). Status is Observation. Condition is Stable. Problem is new. Symptoms have improved. UTI on Admission? No. bd
--- NOTE | 2018-02-26 10:14 | RAD REPORT ---
EXAM DESCRIPTION: Carlos Single View02/26/2018 9:53 am CLINICAL HISTORY: Cough COMPARISON: n December 2017 FINDINGS: Mild to moderate bilateral pulmonary opacities are present. The heart is mildly to moderately enlarged. A central venous catheter has its tip in the superior vena cava. IMPRESSION: Mild to moderate pulmonary edema
[2018-02-26] MEDS ORDERED: INSULIN -REGULAR HUMAN 50 UNIT/0.5 ML ML ONE (10:17)
[2018-02-26] MEDS ORDERED: IPRATROPIUM BROM 0.5MG/2.5ML ONE (10:17)
[2018-02-26] MEDS ORDERED: ALBUTEROL 2.5 MG/3 ML NEB SOL ONE (10:17)
[2018-02-26] MEDS ORDERED: SOD POLYSTYREN SUL 15 GM/60 ML UCUP ONE (10:18)
[2018-02-26] MEDS ORDERED: SODIUM BICARB 50 MEQ/50ML VIAL ONE (10:18)
[2018-02-26] MEDS ORDERED: FUROSEMIDE 100 MG/10 ML VIAL IV ONE (10:18)
[2018-02-26] MEDS ORDERED: D50W 25 GM/50 ML SYRINGE IV ONE (10:18)
[2018-02-26] MEDS ORDERED: FENTANYL CITR 100 MCG/2 ML ONE ×2 (10:19→10:46)
[2018-02-26 10:29] LABS: Blood Morphology Comment NOT SEEN (NOT SEEN); Platelet Estimate ADEQ; Urine White Blood Cell Casts OK
[2018-02-26] MEDS ORDERED: CALCIUM GLUCONATE 1gm/100 ML NS (4.65 mEq/100mL) IV ONE ×2 (10:45)
[2018-02-26] MEDS ORDERED: ACETAMINOPHEN 500 MG TAB PO PRN (11:16)
[2018-02-26] MEDS ORDERED: TRAMADOL HCL 50 MG TAB PO PRN (11:16)
[2018-02-26] MEDS ORDERED: SODIUM CHLORIDE 0.9% 10ML INJ IV PRN (11:16)
[2018-02-26] MEDS ORDERED: HYDRALAZINE HCL 20 MG/ML VIAL IV PRN (11:16)
[2018-02-26] MEDS: INSULIN -REGULAR HUMAN 50 UNIT/0.5 ML ML SQ SCH ×3 (11:30→21:00)
--- NOTE | 2018-02-26 12:28 | RAD REPORT ---
EXAM DESCRIPTION: US - Abdomen Exam Limited - 02/26/2018 12:06 pm CLINICAL HISTORY: Abdominal pain. Vomiting COMPARISON: December 2017 FINDINGS: Multiple gallstones are present. The gallbladder wall measures 10 millimeters. The biliary tree is normal caliber. IMPRESSION: Cholelithiasis Thickened gallbladder wall could either indicate acute or chronic cholecystitis
[2018-02-26] MEDS: ONDANSETRON 4 MG/2 ML VIAL IV PRN (14:09)
[2018-02-26] MEDS: Ciprofloxacin 200mg IV 200 MG/100 ML IV.SOLN. IV SCH ×2 (14:15→21:12)
[2018-02-26 14:49] VITALS: BMI 21.4
--- NOTE | 2018-02-26 15:14 | P.HP ---
Certification for Inpatient Patient admitted to: Observation With expected LOS: <2 Midnights Patient will require the following post-hospital care: None Practitioner: I am a practitioner with admitting privileges, knowledge of patient current condition, hospital course, and medical plan of care. Services: Services provided to patient in accordance with Admission requirements found in Title 42 Section 412.3 of the Code of Federal Regulations Patient History Date of Service: 02/26/18 Primary Care Provider: Dr. Alvarado; Nephrology-Dr. Pacheco; Surgery-Dr. Mclaughlin Reason for admission: Abdominal pain History of Present Illness: 52-year-old male presented emergency room with abdominal pain. Patient reports abdominal pain to the right upper quadrant. It is associated with nausea and vomiting. Patient has history of chronic cholelithiasis. Patient came to the ER for further evaluation. Patient reported some fever and chills today. In the ER patient evaluated. Vital signs stable. Sodium 133, potassium 6.3, BUN of 66, creatinine 6.8 with a GFR of 9. AST ALT and alk-phos were all elevated. Lipase within normal range. Chest x-ray shows mild pulmonary edema White count 9.3, hemoglobin 13. Abdominal ultrasound showed gallstones. Thickened gallbladder wall noted likely acute versus chronic cholecystitis. Patient was admitted for further treatment. When I saw the patient ER, he stay reported some nausea and vomiting. Patient did not appear in any respiratory distress. Allergies Clindamycin Adverse Reaction (Intermediate, Uncoded 01/08/18 18:53) Itching/Hives/Rash Home medications list reviewed: Yes Home Medications: Epoetin [Procrit*] 10,000 unit IV EVERY HD vial 01/08/18 Ascorbic Acid [Vitamin C*] 500 mg PO DAILY #30 tablet 01/28/18 Calcium Carbonate [Tums Regular*] 500 mg PO DAILY #30 tab 01/28/18 Clopidogrel Bisulfate [Plavix*] 75 mg PO DAILY #30 tablet 01/28/18 Collagenase [Santyl Ointment*] 1 appl TOP BID #2 tube 01/28/18 Cyanocobalamin [Vitamin B-12*] 1,000 mcg PO DAILY #30 tab 01/28/18 Docusate/Senna [Senokot-S*] 2 tab PO BEDTIME #60 tab 01/28/18 Furosemide [Lasix*] 20 mg PO DAILY #30 tab 01/28/18 Gabapentin [Neurontin*] 100 mg PO BID #60 cap 01/28/18 Heparin [Heparin 1,000 units/mL *] 6,000 unit IV EVERY HD PRN vial 01/28/18 Hydrocodone 5/APAP 325 [[place] 5/325*] 1 tab PO Q4HP PRN tab 01/28/18 Hydrocortisone Cream [Hydrocortisone 1% Cream*] 1 appl TOP TID PRN #1 tube 01/28 Iron/FA/Vit B-Com W/C [Hemocyte Plus*] 1 tab PO DAILY WITH BREAKFAST #30 tab Lisinopril [Prinivil*] 20 mg PO BID #120 tab 01/28/18 Mannitol 25% [Mannitol*] 12.5 gm IV EVERY HD PRN vial 01/28/18 Metoprolol Tartrate [Lopressor*] 50 mg PO AFUPP4LQ #60 tab 01/28/18 Ranitidine [Zantac*] 150 mg PO BEDTIME #30 tab 01/28/18 Sertraline [Zoloft*] 25 mg PO BEDTIME #30 tab 01/28/18 Sevelamer Carbonate [Renvela*] 1,600 mg PO TIDWM #180 tablet 01/28/18 traMADol HCL [Ultram*] 50 mg PO Q4H PRN #60 tab 01/28/18 - Past Medical/Surgical History Diabetic: Yes -: Diabetes mellitus type 2 -: HTN -: Diabetic neuropathy -: Congestive heart failure -: Coronary artery disease with multiple stents -: End-stage renal disease, dialysis m,w,f -: Hyperlipidemia -: Noncompliance of taking some meds during dialysis -: Anxiety -: Severe peripheral vascular disease -: GERD -: Cholelithiasis -: Cardiac stents x12 -: open heart surgery as a child 5 -: Ear tubes -: pacemaker placement, and removed, per pt MD stated he did not need it -: Right below-knee amputation -: Amputation to multiple digits on the left side, foot Psychosocial/ Personal History: Patient is of 16 years, has 1 child, he does not work. - Family History Mother -: Heart disease, Hypertension, Diabetes, Other (see notes) Notes: from alzheimer Father -: Heart disease, Cancer Notes: from colon cancer Brother -: Heart disease, Diabetes, Kidney disease - Social History Smoking Status: Unknown if ever smoked Alcohol use: No CD- Drugs: No Caffeine use: Yes Place of Residence: Home Review of Systems General: Fever, Chills, As per HPI Eyes: Unremarkable ENT: Unremarkable Respiratory: Shortness of Breath, As per HPI Cardiovascular: As per HPI Gastrointestinal: Nausea, Vomiting, Abdominal Pain, As per HPI Genitourinary: Unremarkable Musculoskeletal: Unremarkable Integumentary: Unremarkable Neurological: Unremarkable Physical Examination - Vital Signs Temperature: 97.6 F Blood Pressure: 168/82 Pulse: 92 Respirations: 17 - Physical Exam General: Alert, In no apparent distress, Oriented x3, Cooperative HEENT: Atraumatic, Normocephalic, Mucous membr. moist/pink, EOMI Neck: Supple, No Thyromegaly Respiratory: Crackles/rales (Slight crackles to the bases.) Cardiovascular: Normal pulses, Regular rate/rhythm Gastrointestinal: Normal bowel sounds, Soft and benign, Non-distended, No masses , No rebound, No guarding, Tenderness (Slight pain to the right upper quadrant.) Musculoskeletal: No erythema, No tenderness, No warmth Integumentary: No tenderness/swelling, No erythema, No warmth, No cyanosis Neurological: Normal speech, Normal strength at 5/5 x4 extr, Normal tone, Normal affect - Studies Laboratory Data (last 24 hrs) 02/26/18 09:06: PT 15.5 H, INR 1.31, APTT 29.6 02/26/18 09:06: WBC 9.3, Hgb 13.1 L, Hct 40.7, Plt Count 196 02/26/18 09:06: Sodium 133 L, Potassium 6.3 H*, BUN 66 H, Creatinine 6.80 H*, Glucose 187 H, Magnesium 2.6 H, Total Bilirubin 1.2 H, AST 257 H, ALT 194 H, Alkaline Phosphatase 141 H, Lipase 112 Assessment and Plan - Problems (Diagnosis) (1) Abdominal pain Current Visit: Yes Status: Acute Plan: Patient with right upper quadrant. Patient with history of cholelithiasis. Possible acute versus chronic cholecystitis noted. Will continue with IV antibiotic therapy. Will provide medication for nausea. Case discussed with surgery. Surgery will continue to reassess. Patient will also get dialysis today. I will turn the service over to tomorrow. I will go over the plan of care with him. Qualifiers: Abdominal location: right upper quadrant Qualified Code(s): R10.11 - Right upper quadrant pain (2) Cholecystitis with cholelithiasis Current Visit: Yes Status: Chronic Plan: Patient with history of cholelithiasis. Abdominal ultrasound shows thickened gallbladder likely chronic versus acute cholecystitis. Patient with right upper quadrant pain. Will continue monitor closely. Will provide IV antibiotic therapy. Surgery will evaluate patient. Case discussed with surgery in detail. Qualifiers: Cholelithiasis location: gallbladder Cholecystitis acuity: chronic Biliary obstruction: without biliary obstruction Qualified Code(s): K80.10 - Calculus of gallbladder with chronic cholecystitis without obstruction (3) S/P BKA (below knee amputation) Onset Date: 01/15/18 Current Visit: No Status: Chronic Plan: Patient with history of bilateral knee amputations. Qualifiers: Laterality: bilateral Qualified Code(s): Z89.512 - Acquired absence of left leg below knee; Z89.511 - Acquired absence of right leg below knee (4) Anemia Onset Date: 12/27/17 Current Visit: No Status: Chronic Plan: Patient with anemia of chronic disease. Will monitor closely. Qualifiers: Anemia type: due to chronic kidney disease Chronic kidney disease stage: on chronic dialysis Qualified Code(s): N18.6 - End stage renal disease; D63.1 - Anemia in chronic kidney disease; Z99.2 - Dependence on renal dialysis (5) Anxiety Onset Date: 01/09/18 Current Visit: No Status: Chronic Plan: Will provide medication for anxiety. (6) CHF (congestive heart failure) Onset Date: 05/10/16 Current Visit: No Status: Chronic Plan: Patient with chronic CHF. Patient will get dialysis today. Mild overload noted on chest x-ray. Qualifiers: Heart failure type: systolic Heart failure chronicity: acute on chronic Qualified Code(s): I50.23 - Acute on chronic systolic (congestive) heart failure (7) Coronary artery disease Onset Date: 05/10/16 Current Visit: No Status: Chronic Plan: Continue with medications Qualifiers: (8) Diabetes mellitus Onset Date: 05/10/16 Current Visit: No Status: Chronic Plan: Will provide sliding scale. Qualifiers: Diabetes mellitus type: type 2 Diabetes mellitus shelter insulin use: unspecified shelter insulin use status Diabetes mellitus complication status : with other specified complication Qualified Code(s): E11.69 - Type 2 diabetes mellitus with other specified complication (9) ESRD (end stage renal disease) Onset Date: 06/01/15 Current Visit: No Status: Chronic Plan: Patient will receive dialysis today. Nephrology consulted. (10) GERD (gastroesophageal reflux disease) Onset Date: 01/09/18 Current Visit: No Status: Chronic Plan: Will provide PPI. Qualifiers: (11) Hyperlipidemia Onset Date: 05/10/16 Current Visit: No Status: Chronic Plan: Continue home medication. Qualifiers: (12) Hypertension Onset Date: 08/29/16 Current Visit: No Status: Chronic Plan: Will provide medication for blood pressure control. Qualifiers: Hypertension type: essential hypertension (13) PVD (peripheral vascular disease) Onset Date: 10/19/17 Current Visit: No Status: Chronic Plan: Continue with home medication. (14) Hyperkalemia Current Visit: Yes Status: Acute Plan: Patient will receive dialysis today. Discharge Plan: Home Plan to discharge in: 48 Hours - Advance Directives Does patient have a Living Will: No Does patient have a Durable POA for Healthcare: No - Code Status/Comfort Care Code Status Assessed: Yes Time Spent Managing Pts Care (In Minutes): 55
[2018-02-26] MEDS ORDERED: MANNITOL 25% 12.5 GM/50 ML VIAL IV PRN (16:21)
[2018-02-26] MEDS ORDERED: NA CHLORIDE 0.9% 1,000 ML IV PRN (16:21)
[2018-02-26] MEDS ORDERED: ALBUMIN HUMAN 25% 50 ML IV SCH (17:00)
[2018-02-26] MEDS: ENOXAPARIN 30 MG/0.3 ML SQ SCH (17:00)
[2018-02-26] MEDS: METRONIDAZOLE 500mg IVPB 500 MG/100 ML BAG IV SCH (17:00)
[2018-02-26] MEDS ORDERED: PNEUMOCOCCAL VACCINE 0.5 ML IMVAC ONE (18:00)
[2018-02-26 18:11] LABS: CKMB Creatine Kinase MB 3.8 ng/mL (0.3-3.6)
--- NOTE | 2018-02-26 22:58 | CON ---
Date of Consultation: 02/26/2018 Diagnosis: Abdominal pain. History Of Present Illness: This is the case of a 52-year-old patient, known by us well due to sever e peripheral vascular disease that required bilateral below-knee amputations. The patient is recover ing from those wounds. Now, he comes in with abdominal pain, nausea, and vomiting, etiology of that is unknown. He say he has history of cholelithiasis in the past. So, the working diagnosis from the ER was symptomatic cholelithiasis and cholecystitis. For that reason, surgical consult was obtained . He denies any dysuria, hematuria, hematochezia, or melena. Allergies: INCLUDE CLINDAMYCIN. Medical Problems: Diabetes; congestive heart failure; coronary artery disease with multiple stents; end-stage renal disease, on hemodialysis; severe peripheral vascular disease and GERD. Surgeries: Include bilateral below-knee amputations, open-heart surgery, and dialysis access. Social History: He does not smoke. He does not drink alcohol. Family History: Heart disease, hypertension, diabetes, and colon cancer. Review of Systems: Ten points otherwise unremarkable. Physical Examination: General: The patient is awake and alert. HEENT: Pupils anicteric. Neck: Supple. Chest: Clear. Abdomen: Soft and depressible. No Silverman sign. Mild epigastric tenderness. No guarding or rebound . Extremities: Bilateral lower extremities with open wounds. The patient fell after having amputation . So after the flaps were okay, reopened with a trauma, but is currently doing well. He has been se en in the wound healing center for that. Laboratory Data: Shows WBC count of 9.3, hemoglobin of 13.1, and platelets of 196. INR is 1.31. Po tassium is 6.3. Abdominal ultrasound interpreted by Dr. Magaña as cholelithiasis, thickening gallbl adder, may represent an acute or chronic cholecystitis. Assessment: A 52-year-old patient with abdominal pain. Every time we have to do take him for amputa tion with just as recent as few weeks ago. He was cleared also with a high risk cardiac clearance. He has a cardiac disease that anesthesia may compromise his life. We did that several times and we h ave to keep that in mind, we suspect the patient has cholecystitis and bring that into the equation. Right now, he has no Silverman sign, may be that may be just chronic cholecystitis or maybe he ate some thing wrong. So, we going to keep him in observation for the next 24 hours. I will then give more r ecommendations as the case develops. WILLIE Voice ID: [id number] Report ID: [id number]
[2018-02-27] MEDS: HYDROCODONE/APAP 7.5/325 MG TAB PO PRN ×3 (00:12→16:40)
[2018-02-27] MEDS: METRONIDAZOLE 500mg IVPB 500 MG/100 ML BAG IV SCH ×3 (00:14→16:40)
--- NOTE | 2018-02-27 03:06 | CON ---
Date of Consultation: 02/26/2018 Chief Complaint: End-stage renal disease on dialysis. History Of Present Illness: The patient presented to the hospital because of abdominal pain, nausea, vomiting, and right upper quadrant pain. Was complaining of abdominal distention and nausea, vomiting, decreased p.o. intake. The patient has history of end-stage renal disease due to diabetes mellitus and hypertension. He was found to have severe hyperkalemia. Potassium was 6.2, and the patient had STAT dialysis done to control electrolytes. The patient had nausea, vomiting, and he did not receive Kayexalate due to the fact that he had severe abdominal pain. Review of Systems: General: Has low-grade fever. Denies syncope. Eyes: Denies vision changes. Ears, Nose, Mouth, and Throat: Denies sore throat, earache. Respiratory: Denies PND, orthopnea. Cardiovascular: Denies chest pain, palpitation. GI: Denies melena, hematemesis. Has nausea, vomiting. : Denies dysuria, hematuria. Musculoskeletal: Denies muscle aches or joint swelling. All other systems reviewed and all are negative. 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 Social History: Denies tobacco, alcohol, or illicit drugs. Family History: No kidney disease in the family. Physical Examination: General: The patient is awake, alert, follows commands. Eyes: Anicteric sclerae. EOMI. Ears, Nose, Mouth, and Throat: Oral mucosa moist. No pallor. Neck: Supple. No JVD. No bruits. Lungs: Clear to auscultation bilaterally. No rhonchi. No wheezing. Heart: S1, S2. No pericardial friction rub. Abdomen: Soft. There is some tenderness in the right upper quadrant. Bowel sounds present. Extremities: No clubbing. No cyanosis. Dressing in place. Neurological: Moving extremities. Cranial nerves intact. Laboratory Data: Hemoglobin is 13.1, WBC 9.3, platelet count is 196,000. Chemistry showed sodium 133, potassium 6.3, chloride 98, CO2 19, BUN 66, creatinine 6.80, magnesium 2.6, calcium 9.9, albumin 3.4, troponin 0.10 and 0.18. Impression And Plan: 1. Severe hyperkalemia. The patient is scheduled to have a stat /emergent dialysis to control electrolytes. There is some fluid overload. Continue p.o. fluid restriction and adjust ultrafiltration goal accordingly. 2. Hypertension, blood pressure control. 3. Hyponatremia secondary to fluid overload. Sodium is 133, glucose 187. Continue p.o. fluid restriction. Advance ultrafiltration with dialysis as needed to control fluid overload. 4. Hyperkalemia. Potassium is 6.3. There is mild metabolic acidosis. Bicarbonate 19. The patient will have stat dialysis to treat electrolytes abnormalities and to control azotemia. The patient will remain n.p.o. He has acute cholecystitis and workup is pending. 5. Acute cholecystitis, antibiotics per broad-spectrum coverage. Monitor WBC. The patient will need surgical consultation for possible gallstones. ELMER/DONNA Voice ID: [id number] Report ID: [id number] HEATHER
[2018-02-27 05:11] LABS: Absolute Lymphocytes (CBC) 0.5 K/uL (0.7-4.9); Absolute Monocytes 0.6 K/uL (0.1-1.3); Basophils % 0.4 % (0-1.3); Eosinophils % 0.1 % (0-4.4); Hematocrit 34.9 % (39.6-49.0); Lymphocytes % 4.1 % (15.3-44.8); MCH 29.5 pg (27.0-35.0); MCV 90.1 fL (80-100); MPV 8.9 fL (7.6-11.3); Monocytes % 5.4 % (3.3-12.3); RBC Red Blood Cell Count 3.87 M/uL (4.33-5.43)
[2018-02-27 05:42] LABS: Bilirubin Total 0.9 mg/dL (0.2-1.0); Protein, Total 7.5 g/dL (6.4-8.2)
[2018-02-27 05:43] LABS: Magnesium 2.2 mg/dL (1.8-2.4)
[2018-02-27] MEDS: MORPHINE 2 MG/ML SYR IV PRN ×2 (07:01→20:58)
[2018-02-27] MEDS: INSULIN -REGULAR HUMAN 50 UNIT/0.5 ML ML SQ SCH ×4 (07:30→21:00)
[2018-02-27] MEDS: Ciprofloxacin 200mg IV 200 MG/100 ML IV.SOLN. IV SCH ×2 (08:48→20:08)
[2018-02-27] MEDS: PANTOPRAZOLE 40 MG INJ IVP SCH (08:48)
[2018-02-27] MEDS: ONDANSETRON 4 MG/2 ML VIAL IV PRN ×2 (09:57→20:08)
[2018-02-27] MEDS: ENOXAPARIN 30 MG/0.3 ML SQ SCH (16:43)
--- NOTE | 2018-02-27 17:52 | P.PN ---
Subjective Date of Service: 02/27/18 Primary Care Provider: Dr. Alvarado; Nephrology-Dr. Pacheco; Surgery-Dr. Mclaughlin Chief Complaint: Abdominal pain The patient feels better today, no fever, no nausea or vomiting. Physical Examination - Vital Signs Temperature: 97.9 F Blood Pressure: 183/94 Pulse: 86 Respirations: 18 Pulse Ox (%): 95 - Physical Exam General: Alert, In no apparent distress HEENT: Atraumatic, PERRLA, EOMI Neck: Supple, JVD not distended Respiratory: Clear to auscultation bilaterally, Normal air movement Cardiovascular: Regular rate/rhythm, Normal S1 S2 Gastrointestinal: Normal bowel sounds, Tenderness (mild tender diffusely to palpation) Musculoskeletal: No tenderness Integumentary: No rashes Neurological: Normal speech, Normal tone, Normal affect - Studies Medications List Reviewed: Yes Assessment And Plan - Current Problems (Diagnosis) (1) Abdominal pain Onset Date: 02/27/18 Current Visit: Yes Status: Acute Plan: The patient was evaluated by Dr Mclaughlin, he believes that this might be chronic cholecystitis. He recommend to continue with medical treatment and not surgical procedure at this time. Will discuss with Dr Mclaughlin time and treatment at discharge. Qualifiers: Abdominal location: right upper quadrant Qualified Code(s): R10.11 - Right upper quadrant pain (2) Cholecystitis with cholelithiasis Onset Date: 02/27/18 Current Visit: Yes Status: Chronic Qualifiers: Cholelithiasis location: gallbladder Cholecystitis acuity: chronic Biliary obstruction: without biliary obstruction Qualified Code(s): K80.10 - Calculus of gallbladder with chronic cholecystitis without obstruction (3) IDDM (insulin dependent diabetes mellitus) Onset Date: 12/27/17 Current Visit: No Status: Acute (4) Coronary artery disease Onset Date: 05/10/16 Current Visit: No Status: Chronic Plan: Stable, no chest pain. Qualifiers: Coronary Disease-Associated Artery/Lesion type: [place] artery [place] vs. transplanted heart: [place] heart Associated angina: without angina Qualified Code(s): I25.10 - Atherosclerotic heart disease of [place] coronary artery without angina pectoris (5) ESRD (end stage renal disease) Onset Date: 06/01/15 Current Visit: No Status: Chronic Plan: F/U Nephrology team, continue HD while is in the hospital. (6) PVD (peripheral vascular disease) Onset Date: 10/19/17 Current Visit: No Status: Chronic (7) S/P BKA (below knee amputation) Onset Date: 01/15/18 Current Visit: No Status: Chronic Qualifiers: Laterality: bilateral Qualified Code(s): Z89.512 - Acquired absence of left leg below knee; Z89.511 - Acquired absence of right leg below knee - Code Status/Comfort Care Code Status Assessed: Yes Code Status: Full Code
[2018-02-28] MEDS: METRONIDAZOLE 500mg IVPB 500 MG/100 ML BAG IV SCH ×2 (01:02→08:33)
--- NOTE | 2018-02-28 02:07 | PN ---
Date of Progress Note: 02/27/2018 Subjective: The patient was admitted with possible cholecystitis, abdominal pain, seen by Surgery, o n liquid diet. Physical Examination: Vital Signs: Blood pressure 183/94, pulse of 86, afebrile. Chest: Clear to auscultation. Heart: S1, S2. Regular. Abdomen: Soft, nontender. Extremities: Bilateral amputee. Neuro: Alert, oriented x3. Laboratory Data: WBC 11.1, H and H 11.4/34.9, platelets 157. Sodium 139, potassium 4, bicarb 28, BU N 47, creatinine 5.1, calcium 8.9, magnesium 2.2, AST 311, ALT 340. Medications: Current medications, the patient on its include: 1.Ciprofloxacin. 2.Metronidazole. 3.Lovenox. 4.Hydralazine. 5.Mannitol. 6.Pantoprazole. 7.Hydrocodone. 8.Tramadol. Assessment And Plan: 1.End-stage renal disease. Normal volume. I am going to go ahead and arrange for dialysis tomorrow . 2.Hypertension, uncontrolled. We will start him on low dose of beta sal and we will follow up t he patient. 3.Cholecystitis, chronic. Follow up with Surgery. Continue current antibiotic. ULYSSES/DONNA Voice ID: [id number] Report ID: [id number]
[2018-02-28] MEDS: HYDROCODONE/APAP 7.5/325 MG TAB PO PRN (05:31)
[2018-02-28 05:44] LABS: Absolute Lymphocytes (CBC) 0.4 K/uL (0.7-4.9); Absolute Monocytes 0.5 K/uL (0.1-1.3); Absolute Neutrophil 7.1 K/uL (1.8-8.0); Basophils % 0.6 % (0-1.3); Eosinophils % 0.1 % (0-4.4); Hematocrit 33.9 % (39.6-49.0); Lymphocytes % 4.9 % (15.3-44.8); MCH 30.3 pg (27.0-35.0); MCV 90.6 fL (80-100); Monocytes % 6.3 % (3.3-12.3); RBC Red Blood Cell Count 3.74 M/uL (4.33-5.43)
[2018-02-28] MEDS ORDERED: CARVEDILOL 3.125 MG TAB PO SCH (06:00)
[2018-02-28 06:04] LABS: Albumin 2.8 g/dL (3.4-5.0); Bilirubin Total 0.7 mg/dL (0.2-1.0); Magnesium 2.3 mg/dL (1.8-2.4); Potassium 4.1 mmol/L (3.5-5.1); Protein, Total 7.1 g/dL (6.4-8.2)
[2018-02-28] MEDS: INSULIN -REGULAR HUMAN 50 UNIT/0.5 ML ML SQ SCH ×2 (07:30→11:30)
[2018-02-28] MEDS: Ciprofloxacin 200mg IV 200 MG/100 ML IV.SOLN. IV SCH (08:34)
[2018-02-28] MEDS: PANTOPRAZOLE 40 MG INJ IVP SCH (08:34)
[2018-02-28 09:11] VITALS: O2SAT 94
[2018-02-28 15:59] VITALS: BP 192/88; TEMP 97.5
--- NOTE | 2018-02-28 18:24 | P.DS ---
Admission Date: 02/26/18 Discharge Date: 02/28/18 Primary Care Provider: Dr. Alvarado; Nephrology-Dr. Pacheco; Surgery-Dr. Mclaughlin Disposition: ROUTINE DISCHARGE Discharge Condition: GOOD Reason for Admission: Abdominal pain Consultations: Surgery Procedures: None - Problems (1) Cholecystitis with cholelithiasis Onset Date: 02/27/18 Current Visit: Yes Status: Chronic Qualifiers: Cholelithiasis location: gallbladder Cholecystitis acuity: chronic Biliary obstruction: without biliary obstruction Qualified Code(s): K80.10 - Calculus of gallbladder with chronic cholecystitis without obstruction (2) Chronic kidney disease (CKD), stage III (moderate) Current Visit: No Status: Acute (3) IDDM (insulin dependent diabetes mellitus) Onset Date: 12/27/17 Current Visit: No Status: Acute (4) CHF (congestive heart failure) Onset Date: 05/10/16 Current Visit: No Status: Chronic Qualifiers: Heart failure type: systolic Heart failure chronicity: acute on chronic Qualified Code(s): I50.23 - Acute on chronic systolic (congestive) heart failure (5) Coronary artery disease Onset Date: 05/10/16 Current Visit: No Status: Chronic Qualifiers: Coronary Disease-Associated Artery/Lesion type: [place] artery [place] vs. transplanted heart: [place] heart Associated angina: without angina Qualified Code(s): I25.10 - Atherosclerotic heart disease of [place] coronary artery without angina pectoris (6) Diabetes mellitus Onset Date: 05/10/16 Current Visit: No Status: Chronic Qualifiers: Diabetes mellitus type: type 2 Diabetes mellitus termite control service representative insulin use: unspecified [facility] insulin use status Diabetes mellitus complication status : with other specified complication Qualified Code(s): E11.69 - Type 2 diabetes mellitus with other specified complication (7) GERD (gastroesophageal reflux disease) Onset Date: 01/09/18 Current Visit: No Status: Chronic Qualifiers: (8) Hyperlipidemia Onset Date: 05/10/16 Current Visit: No Status: Chronic Qualifiers: (9) Hypertension Onset Date: 08/29/16 Current Visit: No Status: Chronic Qualifiers: Hypertension type: essential hypertension (10) PVD (peripheral vascular disease) Onset Date: 10/19/17 Current Visit: No Status: Chronic (11) S/P BKA (below knee amputation) Onset Date: 01/15/18 Current Visit: No Status: Chronic Qualifiers: Laterality: bilateral Qualified Code(s): Z89.512 - Acquired absence of left leg below knee; Z89.511 - Acquired absence of right leg below knee Brief History of Present Illness: 52-year-old male presented emergency room with abdominal pain. Patient reports abdominal pain to the right upper quadrant. It is associated with nausea and vomiting. Patient has history of chronic cholelithiasis. Patient came to the ER for further evaluation. Patient reported some fever and chills today. In the ER patient evaluated. Vital signs stable. Sodium 133, potassium 6.3, BUN of 66, creatinine 6.8 with a GFR of 9. AST ALT and alk-phos were all elevated. Lipase within normal range. Chest x-ray shows mild pulmonary edema White count 9.3, hemoglobin 13. Abdominal ultrasound showed gallstones. Thickened gallbladder wall noted likely acute versus chronic cholecystitis. Patient was admitted for further treatment. When I saw the patient ER, he stay reported some nausea and vomiting. Patient did not appear in any respiratory distress. Hospital Course: Overall during the hospital stay patient remained stable The patient was initially admitted to the hospital for possible acute cholecystitis. General surgery was consulted who did recommended patient be medically managed due to high risk of surgery. Patient was started on IV antibiotics here in the hospital and was switched over to oral antibiotics once his nausea and vomiting resolved. Patient had resolution of his abdominal pain nausea and vomiting and was able to tolerate his diet well and thus he was discharged home on oral medication was asked to follow up with surgery in about 1-2 weeks. While here in the hospital patient also required hemodialysis for his end-stage renal disease and thus was dialyzed here in the hospital with nephrology consultation. All other chronic conditions remained stable while here in the hospital and patient was sent home under stable condition Vital Signs/Physical Exam: Temp Pulse Resp BP Pulse Ox 97.5 F 76 95 H 192/88 H 95 02/28/18 12:02/28/18 12:00 02/28/18 12:02/28/18 12:02/28/18 12:00 General: Alert, In no apparent distress HEENT: Atraumatic, PERRLA, EOMI Neck: Supple, JVD not distended Respiratory: Clear to auscultation bilaterally, Normal air movement Cardiovascular: Regular rate/rhythm, Normal S1 S2 Gastrointestinal: Normal bowel sounds, No tenderness Musculoskeletal: Other (BL BKA) Integumentary: No rashes Neurological: Normal speech, Normal tone, Normal affect Lymphatics: No axilla or inguinal lymphadenopathy Laboratory Data at Discharge: WBC 8.0 K/uL (4.3-10.9) D 02/28/18 04:32 Hgb 11.3 g/dL (13.6-17.9) L 02/28/18 04:32 Hct 33.9 % (39.6-49.0) L 02/28/18 04:32 Plt Count 162 K/uL (152-406) 02/28/18 04:32 PT 15.5 SECONDS (9.5-12.5) H 02/26/18 09:06 INR 1.31 02/26/18 09:06 APTT 29.6 SECONDS (24.3-36.9) 02/26/18 09:06 Sodium 139 mmol/L (136-145) 02/28/18 04:32 Potassium 4.1 mmol/L (3.5-5.1) 02/28/18 04:32 BUN 60 mg/dL (7-18) H 02/28/18 04:32 Creatinine 5.80 mg/dL (0.55-1.3) H* 02/28/18 04:32 Glucose 119 mg/dL (74-106) H 02/28/18 04:32 Magnesium 2.3 mg/dL (1.8-2.4) 02/28/18 04:32 Total Bilirubin 0.7 mg/dL (0.2-1.0) 02/28/18 04:32 AST 138 U/L (15-37) H D 02/28/18 04:32 ALT 271 U/L (12-78) H 02/28/18 04:32 Alkaline Phosphatase 110 U/L (45-117) 02/28/18 04:32 Troponin I 0.32 ng/mL (0.0-0.045) H 02/27/18 01:25 Lipase 112 U/L (73-393) 02/26/18 09:06 Home Medications: Ciprofloxacin HCl [Cipro 500 MG Tablet] 500 mg PO DAILY #10 tab 02/28/18 metroNIDAZOLE [Flagyl] 500 mg PO Q8H #30 tablet 02/28/18 New Medications: Ciprofloxacin HCl [Cipro 500 MG Tablet] 500 mg PO DAILY #10 tab metroNIDAZOLE [Flagyl] 500 mg PO Q8H #30 tablet Patient Discharge Instructions: Please f.u with PCP and Dr mclaughlin in 1 to 2 days post discharge. New medication. cipro 500mg daily. Flagyl 500mg q8h daily. You were found to have Inflammation and infection of your gallbladder and thus are getting Antibiotics. Diet: Regular Activity: Ad felicia Followup: Francisco Pacheco MD [ACTIVE - CAN ADMIT] - 1 Week (Call for appointment) Inocencio Mclaughlin MD [ACTIVE - CAN ADMIT] - 1 Week (Call for appointment)
--- NOTE | 2018-03-01 02:32 | PN ---
Date of Progress Note: 02/28/2018 Subjective: The patient was admitted with possible cholecystitis, seen by Surgery. Physical Examination: Vital Signs: When I saw the patient, blood pressure 170/73, pulse of 83. Chest: Clear to auscultation. Heart: S1, S2. Systolic murmur. Abdomen: Soft, nontender. Extremities: Bilateral amputee. Laboratory Data: WBC 8, H and H 11.3/33.9. Sodium 139, potassium 4.1, bicarb 27, BUN 60, creatinine 5.8, calcium 8.9. Assessment And Plan: 1.End-stage renal disease. Normal volume. Continue current dialysis status post planned for dialys is today. The patient is going to be cleared from the renal standpoint for discharge planning if he is tolerating his diet. 2.Hypertension, controlled, not optimal. We will follow up blood pressure after dialysis. 3.Anemia of chronic kidney disease, stable. 4.Secondary hypothyroid. Continue current treatment. 5.Chronic cholecystitis. The patient as by Surgery high risk for any intervention. Continue conser vative treatment. HARRIET Voice ID: [id number] Report ID: [id number]
[2018-03-01 04:04] LABS: HBsAG Nonreactive (Nonreactive)
== END 2018-02-28 18:20 | disposition home or self-care (01) ==
LOC: ER 08:08 → ERHOLD 10:06 → 2ND 13:14
PROVIDERS: ADMIT Family Medicine; ATTEND Family Medicine
DX: K80.10 Calculus of gallbladder with chronic cholecystitis without obstruction (principal); I13.2 Hypertensive heart and chronic kidney disease with heart failure and with stage 5 chronic kidney disease, or end stage renal disease; N18.6 End stage renal disease; E11.22 Type 2 diabetes mellitus with diabetic chronic kidney disease; I50.22 Chronic systolic (congestive) heart failure; I25.10 Atherosclerotic heart disease of native coronary artery without angina pectoris; K21.9 Gastro-esophageal reflux disease without esophagitis; E78.5 Hyperlipidemia, unspecified; I73.9 Peripheral vascular disease, unspecified; Z89.512 Acquired absence of left leg below knee; Z89.511 Acquired absence of right leg below knee; E87.5 Hyperkalemia; Z95.0 Presence of cardiac pacemaker; Z95.5 Presence of coronary angioplasty implant and graft; E87.1 Hypo-osmolality and hyponatremia; Z99.2 Dependence on renal dialysis
CPT/HCPCS: 36415 ×2; 71045; 76705; 80048; 80053 ×2; 80076; 82550 ×3; 82553 ×3; 82962 ×9; 83690; 83735 ×3; 83880; 84484 ×3; 85025 ×3; 85610; 85730; 86704; 86706; 86803; 87340; 90935; 93005; 94640; 96365; 96366; 96375; 99285; C9113 ×2; G0257; G0378 ×2; J0360; J0610; J0744 ×5; J1650; J2270 ×2; J2405 ×5; J3010 ×2; J7030

== ENCOUNTER 2018-04-05 21:12 | Observation (INO) | payer OTHER, BC ==
[2018-04-05] MEDS ORDERED: MORPHINE 4 MG/ML SYR ONE (21:38)
[2018-04-05] MEDS ORDERED: ONDANSETRON 4 MG/2 ML VIAL ONE (21:39)
[2018-04-05 23:06] LABS: Absolute Lymphocytes (CBC) 0.5 K/uL (0.7-4.9); Absolute Monocytes 0.5 K/uL (0.1-1.3); Basophils % 0.8 % (0-1.3); Eosinophils % 2.5 % (0-4.4); Hematocrit 39.6 % (39.6-49.0); Lymphocytes % 5.4 % (15.3-44.8); MCH 30.5 pg (27.0-35.0); MCV 91.5 fL (80-100); MPV 8.8 fL (7.6-11.3); Monocytes % 5.8 % (3.3-12.3); RBC Red Blood Cell Count 4.32 M/uL (4.33-5.43)
[2018-04-05 23:07] LABS: Protime INR 1.2
[2018-04-05 23:36] LABS: Albumin 3.1 g/dL (3.4-5.0); Bilirubin Direct 0.3 mg/dL (0-0.2); Bilirubin Total 0.7 mg/dL (0.2-1.0); Magnesium 2.2 mg/dL (1.8-2.4); Potassium 3.2 mmol/L (3.5-5.1); Protein, Total 7.9 g/dL (6.4-8.2); Troponin (Emerg Dept Use Only) 0.12 ng/mL (0.0-0.045)
[2018-04-05 23:41] LABS: Blood Morphology Comment NOT SEEN (NOT SEEN); Platelet Estimate ADEQ
--- NOTE | 2018-04-06 00:18 | ER ---
Nurse's Notes [facility] Name: Justus Prasad Age: 52 yrs Sex: Male : 1965 Arrival Date: 04/05/2018 Time: 21:25 Bed 16 Private MD: Gino Alvarado H Diagnosis: Cholelithiasis;Abdominal tenderness;End stage renal disease;Retention of urine;Unspecified kidney failure-chronic Presentation: 04/05 21:25 Presenting complaint: EMS states: patient is having severe right flank pain, n/v for mg2 the past 3 days. He has history of gall stones. last dialysis was yesterday. Transition of care: patient was not received from another setting of care. Onset of symptoms was April 2018. Risk Assessment: Do you want to hurt yourself or someone else? Patient reports no desire to harm self or others. Initial Sepsis Screen: Does the patient meet any 2 criteria? No. Patient's initial sepsis screen is negative. Does the patient have a suspected source of infection? No. Patient's initial sepsis screen is negative. Care prior to arrival: None. 21:25 Method Of Arrival: EMS: [facility] mg2 21:25 Acuity: KUNAL 3 mg2 Triage Assessment: 21:30 General: Appears in no apparent distress. comfortable, Behavior is calm, cooperative, cc3 appropriate for age. Pain: Complains of pain in right flank pain. EENT: No signs and/or symptoms were reported regarding the EENT system. Neuro: Level of Consciousness is awake, alert, obeys commands, Oriented to person, place, time, situation, Appropriate for age. Cardiovascular: Denies chest pain. Respiratory: Airway is patent Respiratory effort is even, unlabored, Respiratory pattern is regular, symmetrical. GI: Abdomen is round distended. : Reports inability to void. Derm: Rash noted that is itchy, raised, on all over his body most especially in the abdominal and back area. Musculoskeletal: Amputation of bilateral below the knee. Reports pain in right flank pain. Historical: - Allergies: 21:44 Clindamycin; mg2 - Home Meds: 21:44 alprazolam 0.25 mg Oral tab as needed [Active]; aspirin 81 mg Oral TbEC 1 tab once mg2 daily [Active]; Insulin: Novolin 70/30 sliding scale Sub-Q before meals [Active]; lisinopril 5 mg Oral tab 1 tab on Tues, Thurs, Sat and Sun only [Active]; Lyrica 50 mg Oral 2 times per day [Active]; metoprolol tartrate 25 mg Oral tab 1 tab 2 times per day [Active]; Nitroglycerin Oral as needed [Active]; Plavix 75 mg Oral tab 1 tab once daily [Active]; Renvela 800 mg Oral tab 2 tabs 3 times per day [Active]; - PMHx: 21:44 cardiac stents; CHF; Diabetes - IDDM; DIALYSIS MWF; ESRD; Hypertension; gangrenous toes mg2 L 1,3,4; Myocardial infarction; - PSHx: 21:44 bilateral BKA; mg2 - Immunization history:: Flu vaccine status is unknown. - Social history:: Smoking status: Patient/guardian denies using tobacco, but has a distant history of tobacco abuse. - Ebola Screening: : No symptoms or risks identified at this time. Screenin:41 Abuse screen: Denies threats or abuse. Denies injuries from another. Nutritional mg2 screening: No deficits noted. Tuberculosis screening: No symptoms or risk factors identified. Fall Risk IV access (20 points). Assessment: 21:30 General: see triage note. cc3 21:35 General: Patient with bilateral below the knee amputation noted.. cc3 22:15 Reassessment: Patient appears in no apparent distress at this time. Patient and/or cc3 family updated on plan of care and expected duration. Pain level reassessed. Patient is alert, oriented x 3, equal unlabored respirations, skin warm/dry/pink. 04/06 00:30 Reassessment: Patient appears in no apparent distress at this time. Patient and/or cc3 family updated on plan of care and expected duration. Pain level reassessed. Patient is alert, oriented x 3, equal unlabored respirations, skin warm/dry/pink. Bladder scan done, patient's amount of urine in the bladder is [address] Toure and ordered for urinary catheter insertion but patient refused and said he will just try to pass urine in the urinal, Dr. Toure and charge nurse Eli informed. 01:30 Reassessment: Patient passed extremely small amount of urine in the urinal, dipstick cc3 done and urine sample sent to lab by LG Harding for urine culture. 01:45 Reassessment: Patient appears in no apparent distress at this time. Patient and/or cc3 family updated on plan of care and expected duration. Pain level reassessed. Patient is alert, oriented x 3, equal unlabored respirations, skin warm/dry/pink. Post-void bladder scan of 659 mL, Dr. Toure and charge nurse Eli informed; still patient refused for urinary catheter insertion. Room available in 217, report handed over to RN Cecil Golden for continuity of care. 02:00 Reassessment: Patient left ER by stretcher vitally stable escorted by refrigeration technicianduarte Harding. cc3 Vital Signs: 04/05 21:27 BP 156 / 131; Pulse 90; Resp 20; Temp 98.2(O); Pulse Ox 100% ; Weight 54.43 kg; Height mg2 5 ft. 4 in. (162.56 cm); Pain 8/10; 22:45 BP 200 / 65; Pulse 87; Resp 20; Pulse Ox 97% on R/A; cc3 23:30 BP 186 / 87; Pulse 88; Resp 19 S; Pulse Ox 96% on R/A; cc3 04/06 00:15 BP 189 / 74; Pulse 86; Resp 20 S; Pulse Ox 97% on R/A; cc3 01:15 BP 191 / 104; Pulse 86; Resp 20; Pulse Ox 98% on R/A; cc3 04/05 21:27 Body Mass Index 20.60 (54.43 kg, 162.56 cm) mg2 ED Course: 04/05 21:25 Patient arrived in ED. mg2 21:26 Triage completed. mg2 21:41 Patient has correct armband on for positive identification. Bed in low position. Call mg2 light in reach. satellite project site monitor on. Pulse ox on. NIBP on. 21:41 Arm band placed on left wrist. cc3 21:44 Jacqui Ospina is Primary Nurse. cc3 21:45 No provider procedures requiring assistance completed. Inserted saline lock: 20 gauge mg2 in left antecubital area, using aseptic technique. Blood collected. 21:51 James Toure MD is Attending Physician. morena 21:57 XRAY Chest (1 view) In Process Unspecified. EDMS 22:10 Gino Alvarado DO is Private Physician. ds1 22:[address] via stretcher. jg6 22:14 CT completed. Patient tolerated procedure well. Patient moved back from CT. jg6 22:14 CT Abd/Pelvis - Without Cont In Process Unspecified. EDMS 22:49 US Abdomen Limited In Process Unspecified. EDMS 04/06 00:14 Tabitha Esqueda MD is Hospitalizing Provider. [facility] 01:42 Urine Culture Sent. ds4 01:45 Patient admitted, IV remains in place. cc3 Administered Medications: 04/05 21:40 Drug: morphine 4 mg Route: IVP; Site: left antecubital; mg2 22:15 Follow up: Response: No adverse reaction; Pain is decreased cc3 21:40 Drug: Zofran 4 mg Route: IVP; Site: left antecubital; mg2 22:15 Follow up: Response: No adverse reaction; Nausea is decreased cc3 04/06 00:45 Drug: Zosyn 2.25 grams Route: IVPB; Infused Over: 60 mins; Site: left antecubital; cc3 01:45 Follow up: Response: No adverse reaction; IV Status: Completed infusion; IV Intake: cc3 100ml Intake: 01:45 IV: 100ml; Total: 100ml. cc3 Outcome: 00:17 Decision to Hospitalize by Provider. morena 01:45 Admitted to Med/surg accompanied by tech, via stretcher, room 217, with chart, Report cc3 called to PANDA Golden 01:45 Condition: stable 01:45 Instructed on the need for admit. 02:14 Patient left the ED. cc3 Signatures: Dispatcher [employer] EDMT James Toure MD MD cha Sanford, Demi ds1 Mehdi Orantes ds4 Maynor Dominguez RN RN mg2 Jacqui Ospnia cc3 Alyson Lopez jg6 Corrections: (The following items were deleted from the chart) 04/05 21:42 21:27 Pulse 90bpm; Resp 20bpm; Pulse Ox 100%; Temp 98.2F Oral; 54.43 kg; Height 5 ft. 4 mg2 in.; BMI: 20.6; Pain 8/10; mg2 21:45 21:25 Presenting complaint: EMS states: patient is having severe right flank pain, n/v mg2 for the past 3 days. He has history of gall stones. mg2 04/06 01:24 04/05 21:30 General: see triage note. cc3 cc3 04/06 03:09 10 21:30 General: Appears in no apparent distress. comfortable, Behavior is calm, cc3 cooperative, appropriate for age, cc3 04/06 03:09 04/05 21:30 Musculoskeletal: Reports pain in right flank pain cc3 cc3 04/06 03:13 00:30 Reassessment: Patient appears in no apparent distress at this time. Patient cc3 and/or family updated on plan of care and expected duration. Pain level reassessed. Patient is alert, oriented x 3, equal unlabored respirations, skin warm/dry/pink. Bladder scan done, patient's amount of urine in the bladder is [address] Toure and ordered for urinary catheter insertion but patient refused and said he will just try to pass urine in the urinal, Dr. Toure informed. cc3 03:14 01:45 Reassessment: Patient appears in no apparent distress at this time. Patient cc3 and/or family updated on plan of care and expected duration. Pain level reassessed. Patient is alert, oriented x 3, equal unlabored respirations, skin warm/dry/pink. Post-void bladder scan of 659 mL, Dr. Toure informed; still patient refused for urinary catheter insertion. Room available in 217, report handed over to PANDA Golden for continuity of care. cc3
--- NOTE | 2018-04-06 00:18 | EDPHYS ---
Physician Documentation [facility] Name: Justus Prasad Age: 52 yrs Sex: Male : 1965 Arrival Date: 04/05/2018 Time: 21:25 Bed 16 Private MD: Gino Alvarado H ED Physician James Toure HPI: 04/05 22:21 This 52 yrs old Male presents to ER via EMS with complaints of RIGHT FLANK morena PAIN. 22:21 The patient complains of pain in the right mid back. morena Historical: - Allergies: 21:44 Clindamycin; mg2 - Home Meds: 21:44 alprazolam 0.25 mg Oral tab as needed [Active]; aspirin 81 mg Oral TbEC 1 tab once mg2 daily [Active]; Insulin: Novolin 70/30 sliding scale Sub-Q before meals [Active]; lisinopril 5 mg Oral tab 1 tab on Tues, Thurs, Sat and Sun only [Active]; Lyrica 50 mg Oral 2 times per day [Active]; metoprolol tartrate 25 mg Oral tab 1 tab 2 times per day [Active]; Nitroglycerin Oral as needed [Active]; Plavix 75 mg Oral tab 1 tab once daily [Active]; Renvela 800 mg Oral tab 2 tabs 3 times per day [Active]; - PMHx: 21:44 cardiac stents; CHF; Diabetes - IDDM; DIALYSIS MWF; ESRD; Hypertension; gangrenous toes mg2 L 1,3,4; Myocardial infarction; - PSHx: 21:44 bilateral BKA; mg2 - Immunization history:: Flu vaccine status is unknown. - Social history:: Smoking status: Patient/guardian denies using tobacco, but has a distant history of tobacco abuse. - Ebola Screening: : No symptoms or risks identified at this time. ROS: 22:22 Constitutional: Negative for fever, chills, and weight loss, Eyes: Negative for injury, morena pain, redness, and discharge, ENT: Negative for injury, pain, and discharge, Neck: Negative for injury, pain, and swelling, Cardiovascular: Negative for chest pain, palpitations, and edema, Respiratory: Negative for shortness of breath, cough, wheezing, and pleuritic chest pain, : Negative for injury, bleeding, discharge, and swelling, MS/Extremity: Negative for injury and deformity, Skin: Negative for injury, rash, and discoloration, Neuro: Negative for headache, weakness, numbness, tingling, and seizure. 22:22 Abdomen/GI: Positive for abdominal pain, of the anterior aspect of right lateral abdomen, posterior aspect of right lateral abdomen and right upper quadrant. 22:22 Back: Positive for flank pain, on the right. Exam: 22:22 Constitutional: This is a well developed, well nourished patient who is awake, alert, morena and in no acute distress. Head/Face: Normocephalic, atraumatic. Eyes: Pupils equal round and reactive to light, extra-ocular motions intact. Lids and lashes normal. Conjunctiva and sclera are non-icteric and not injected. Cornea within normal limits. Periorbital areas with no swelling, redness, or edema. ENT: Nares patent. No nasal discharge, no septal abnormalities noted. Tympanic membranes are normal and external auditory canals are clear. Oropharynx with no redness, swelling, or masses, exudates, or evidence of obstruction, uvula midline. Mucous membranes moist. Neck: Trachea midline, no thyromegaly or masses palpated, and no cervical lymphadenopathy. Supple, full range of motion without nuchal rigidity, or vertebral point tenderness. No Meningismus. Chest/axilla: Normal chest wall appearance and motion. Nontender with no deformity. No lesions are appreciated. Cardiovascular: Regular rate and rhythm with a normal S1 and S2. No gallops, murmurs, or rubs. Normal PMI, no JVD. No pulse deficits. Respiratory: Lungs have equal breath sounds bilaterally, clear to auscultation and percussion. No rales, rhonchi or wheezes noted. No increased work of breathing, no retractions or nasal flaring. Abdomen/GI: Soft, non-tender, with normal bowel sounds. No distension or tympany. No guarding or rebound. No evidence of tenderness throughout. Back: No spinal tenderness. No costovertebral tenderness. Full range of motion. Male : Normal genitalia with no discharge or lesions. Skin: Warm, dry with normal turgor. Normal color with no rashes, no lesions, and no evidence of cellulitis. MS/ Extremity: Pulses equal, no cyanosis. Neurovascular intact. Full, normal range of motion. Neuro: Awake and alert, GCS 15, oriented to person, place, time, and situation. Cranial nerves II-XII grossly intact. Motor strength 5/5 in all extremities. Sensory grossly intact. Cerebellar exam normal. Normal gait. Psych: Awake, alert, with orientation to person, place and time. Behavior, mood, and affect are within normal limits. Vital Signs: 21:27 BP 156 / 131; Pulse 90; Resp 20; Temp 98.2(O); Pulse Ox 100% ; Weight 54.43 kg; Height mg2 5 ft. 4 in. (162.56 cm); Pain 8/10; 22:45 BP 200 / 65; Pulse 87; Resp 20; Pulse Ox 97% on R/A; cc3 23:30 BP 186 / 87; Pulse 88; Resp 19 S; Pulse Ox 96% on R/A; cc3 04/06 00:15 BP 189 / 74; Pulse 86; Resp 20 S; Pulse Ox 97% on R/A; cc3 01:15 BP 191 / 104; Pulse 86; Resp 20; Pulse Ox 98% on R/A; cc3 04/05 21:27 Body Mass Index 20.60 (54.43 kg, 162.56 cm) mg2 MDM: 04/05 21:51 Patient medically screened. morena 22:23 Data reviewed: vital signs, nurses notes, lab test result(s), EKG, radiologic studies, morena plain films. 04/05 21:39 Order name: Basic Metabolic Panel; Complete Time: 00:07 mg2 04/05 21:39 Order name: CBC with Diff; Complete Time: 00:07 mg2 04/05 21:39 Order name: LFT's; Complete Time: 00:07 mg2 04/05 21:39 Order name: Magnesium; Complete Time: 00:07 mg2 04/05 21:39 Order name: NT PRO-BNP; Complete Time: 00:07 mg2 04/05 21:39 Order name: PT-INR; Complete Time: 23:16 mg2 04/05 21:39 Order name: Troponin (emerg Dept Use Only); Complete Time: 00:07 mg2 04/05 21:39 Order name: XRAY Chest (1 view) mg2 04/05 21:52 Order name: CT Abd/Pelvis - Without Cont morena 04/05 22:03 Order name: Lipase; Complete Time: 00:07 EDMS 04/05 23:08 Order name: Manual Differential; Complete Time: 00:07 EDMS 04/06 00:14 Order name: Urine Culture [facility] 04/06 01:43 Order name: Urine Dipstick--Ancillary (enter results) ds4 04/05 21:39 Order name: EKG; Complete Time: 21:40 mg2 04/05 21:39 Order name: Cardiac monitoring; Complete Time: 21:40 mg2 04/05 21:39 Order name: EKG - Nurse/Tech; Complete Time: 22:38 mg2 04/05 21:39 Order name: IV Saline Lock; Complete Time: 21:41 mg2 04/05 21:39 Order name: Labs collected and sent; Complete Time: 21:41 mg2 04/05 21:39 Order name: O2 Per Protocol; Complete Time: 21:41 mg2 04/05 21:39 Order name: O2 Sat Monitoring; Complete Time: 21:41 mg2 04/05 22:21 Order name: US Abdomen Limited [facility] 04/06 00:14 Order name: Bladder Scanner; Complete Time: 00:37 morena 04/06 00:22 Order name: CONS Physician Consult EDFL 04/06 00:22 Order name: CONS Physician Consult EDFL Administered Medications: 21:40 Drug: morphine 4 mg Route: IVP; Site: left antecubital; mg2 22:15 Follow up: Response: No adverse reaction; Pain is decreased cc3 21:40 Drug: Zofran 4 mg Route: IVP; Site: left antecubital; mg2 22:15 Follow up: Response: No adverse reaction; Nausea is decreased cc3 04/06 00:45 Drug: Zosyn 2.25 grams Route: IVPB; Infused Over: 60 mins; Site: left antecubital; cc3 01:45 Follow up: Response: No adverse reaction; IV Status: Completed infusion; IV Intake: cc3 100ml Disposition: 04/06/18 00:17 Hospitalization ordered by Tabitha Esqueda for Observation. Preliminary diagnosis are Cholelithiasis, Abdominal tenderness, End stage renal disease, Retention of urine, Unspecified kidney failure - chronic. - Bed requested for Telemetry/MedSurg (observation). - Status is Observation. cc3 - Condition is Fair. - Problem is new. - Symptoms have improved. UTI on Admission? No Signatures: Dispatcher [employer] EDMS James Toure MD MD cha Solis, Maria ms Gardose, Michele, PANDA RN Jacqui Azar cc3 Corrections: (The following items were deleted from the chart) 04/05 22:03 21:52 LIPASE+C.LAB.BRZ ordered. [facility] 04/06 01:11 00:17 Hospitalization Ordered by Tabitha Esqueda MD for Observation. Preliminary ms diagnosis is Cholelithiasis; Abdominal tenderness; End stage renal disease; Retention of urine; Unspecified kidney failure - chronic. Bed requested for Telemetry/MedSurg (observation). Status is Observation. Condition is Fair. Problem is new. Symptoms have improved. UTI on Admission? No. morena 02:14 01:11 04/06/2018 00:17 Hospitalization Ordered by Tabitha Esqueda MD for Observation. cc3 Preliminary diagnosis is Cholelithiasis; Abdominal tenderness; End stage renal disease; Retention of urine; Unspecified kidney failure - chronic. Bed requested for Telemetry/MedSurg (observation). Status is Observation. Condition is Fair. Problem is new. Symptoms have improved. UTI on Admission? No. ms
[2018-04-06] MEDS ORDERED: PIPER/TAZO/NS 2.25gm 2.25 GM/50 ML BAG ONE (00:50)
[2018-04-06] MEDS ORDERED: ACETAMINOPHEN 500 MG TAB PO PRN (01:06)
[2018-04-06] MEDS ORDERED: MORPHINE 2 MG/ML SYR IV PRN (02:25)
[2018-04-06] MEDS: NA CHLORIDE 0.9% 1,000 ML IV SCH ×2 (02:43→14:12)
[2018-04-06] MEDS: ONDANSETRON 4 MG/2 ML VIAL IV PRN ×2 (02:49→12:26)
[2018-04-06] MEDS ORDERED: D50W 25 GM/50 ML SYRINGE IV PRN (02:50)
[2018-04-06] MEDS ORDERED: GLUCAGON 1 MG/VIAL IM PRN (02:50)
[2018-04-06] MEDS: MORPHINE 4 MG/ML SYR IV PRN ×2 (02:57→06:47)
[2018-04-06 04:42] VITALS: BMI 20.1
[2018-04-06 05:28] LABS: Absolute Lymphocytes (CBC) 0.4 K/uL (0.7-4.9); Absolute Monocytes 0.6 K/uL (0.1-1.3); Basophils % 1.4 % (0-1.3); Eosinophils % 2.9 % (0-4.4); Hematocrit 34.7 % (39.6-49.0); Lymphocytes % 4.3 % (15.3-44.8); MCH 30.7 pg (27.0-35.0); MCV 92.6 fL (80-100); Monocytes % 6.8 % (3.3-12.3); RBC Red Blood Cell Count 3.75 M/uL (4.33-5.43)
--- NOTE | 2018-04-06 05:43 | P.HP ---
Certification for Inpatient Patient admitted to: Observation With expected LOS: <2 Midnights Practitioner: I am a practitioner with admitting privileges, knowledge of patient current condition, hospital course, and medical plan of care. Services: Services provided to patient in accordance with Admission requirements found in Title 42 Section 412.3 of the Code of Federal Regulations Patient History Date of Service: 04/06/18 Reason for admission: Abdominal pain History of Present Illness: Mr Prasad is a 52-year-old male with multiple medical problems including insulin- dependent diabetes mellitus, ESRD on HD, hypertension, bilateral BKA, coronary artery disease, cholelithiasis who came to ER complaining of severe right upper quadrant pain. The patient was also nauseated without vomiting. He denied any fever or chills, no diarrhea either. The patient has had this pain in the past , and is known to have cholelithiasis. Dr. Mclaughlin and Dr Alvarez have evaluated this patient and preferred to delay cholecystectomy due to high risk patient. Lab work shows normal WBC count, CT abdomen and pelvis remarkable for possible acute cholecystitis. Allergies clindamycin Adverse Reaction (Intermediate, Verified 04/06/18 02:28) Itching/Hives/Rash Home medications list reviewed: Yes Home Medications: ALPRAZolam [Xanax] 1 mg PO DAILY PRN 04/06/18 Cyclobenzaprine [Flexeril] 10 mg PO TID PRN 04/06/18 Hydroxyzine HCl [Atarax] 25 mg PO BIDP PRN 04/06/18 Insulin 70/30 NPH/Reg Human [Novolin 70/30*] 2 unit SQ SEECOM 04/06/18 Lisinopril 2 tab PO BID 04/06/18 Morphine Sulfate [Morphine Sulfate ER] 30 mg PO DAILY 04/06/18 Ranitidine [Zantac] 150 mg PO BEDTIME 04/06/18 Sertraline [Zoloft] 0.5 tab PO BEDTIME 04/06/18 Tramadol HCl [Ultram] 50 mg PO Q6HP PRN 04/06/18 - Past Medical/Surgical History Has patient received pneumonia vaccine in the past: No Diabetic: Yes -: Diabetes mellitus type 2 -: HTN -: Diabetic neuropathy -: Congestive heart failure -: Coronary artery disease with multiple stents -: End-stage renal disease, dialysis m,w,f -: Hyperlipidemia -: Noncompliance of taking some meds during dialysis -: Anxiety -: Severe peripheral vascular disease -: GERD -: Cholelithiasis -: Cardiac stents x12 -: open heart surgery as a child 4 -: Ear tubes -: pacemaker placement, and removed, per pt MD stated he did not need it -: Right below-knee amputation -: Amputation to multiple digits on the left side, foot Psychosocial/ Personal History: Patient is of 15 years, has 1 child, he does not work. - Family History Mother -: Heart disease, Hypertension, Diabetes, Other (see notes) Notes: from alzheimer Father -: Heart disease, Cancer Notes: from colon cancer Brother -: Heart disease, Diabetes, Kidney disease - Social History Smoking Status: Never smoker Alcohol use: No CD- Drugs: No Caffeine use: Yes Place of Residence: Home Review of Systems 10-point ROS is otherwise unremarkable Physical Examination - Vital Signs Temperature: 97.6 F Blood Pressure: 203/120 Pulse: 97 Respirations: 20 Pulse Ox (%): 98 - Physical Exam General: Alert, In no apparent distress HEENT: Atraumatic, PERRLA, Mucous membr. moist/pink, EOMI, Sclerae nonicteric Neck: Supple, 2+ carotid pulse no bruit, No LAD, Without JVD or thyroid abnormality Respiratory: Clear to auscultation bilaterally, Normal air movement Cardiovascular: Normal S1 S2, No gallops Gastrointestinal: Normal bowel sounds, Tenderness (Right upper quadrant pain) Musculoskeletal: No tenderness, Other (Bilateral BKA) Integumentary: No rashes Neurological: Normal speech, Normal strength at 5/5 x4 extr, Normal tone, Normal affect Lymphatics: No axilla or inguinal lymphadenopathy - Studies Laboratory Data (last 24 hrs) 04/05/18 22:10: PT 14.2 H, INR 1.20 04/05/18 22:10: WBC 9.4, Hgb 13.2 L, Hct 39.6, Plt Count 206 04/05/18 22:10: Sodium 135 L, Potassium 3.2 L, BUN 51 H, Creatinine 4.40 H, Glucose 173 H, Magnesium 2.2, Total Bilirubin 0.7, AST 25, ALT 31, Alkaline Phosphatase 149 H, Lipase 121 04/05/18 21:52: Lipase Cancelled Assessment and Plan - Problems (Diagnosis) (1) Cholelithiasis Current Visit: Yes Status: Acute Qualifiers: Cholelithiasis location: gallbladder Cholecystitis presence: with cholecystitis Cholecystitis acuity: acute and chronic Biliary obstruction: without biliary obstruction Qualified Code(s): K80.12 - Calculus of gallbladder with acute and chronic cholecystitis without obstruction (2) Cholecystitis Current Visit: Yes Status: Acute (3) End stage renal disease on dialysis Current Visit: Yes Status: Acute (4) Abdominal pain Onset Date: 02/27/18 Current Visit: No Status: Acute Qualifiers: Abdominal location: right upper quadrant (5) Acute coronary syndrome Onset Date: 05/10/16 Current Visit: No Status: Acute (6) Hypertension Onset Date: 08/29/16 Current Visit: No Status: Chronic Qualifiers: Hypertension type: essential hypertension (7) S/P BKA (below knee amputation) Onset Date: 01/15/18 Current Visit: No Status: Chronic Qualifiers: Laterality: bilateral - Plan The patient will be admitted to the hospital due to right upper quadrant pain. CT abdomen and pelvis shows cholelithiasis with possible cholecystitis. Will start empiric antibiotic treatment, consult surgery team for evaluation recommendation. - Advance Directives Does patient have a Living Will: No Does patient have a Durable POA for Healthcare: No - Code Status/Comfort Care Code Status Assessed: Yes Code Status: Full Code
[2018-04-06 05:56] LABS: Albumin 2.7 g/dL (3.4-5.0); Bilirubin Total 0.6 mg/dL (0.2-1.0); Potassium 3.2 mmol/L (3.5-5.1); Protein, Total 6.8 g/dL (6.4-8.2)
[2018-04-06] MEDS: INSULIN -REGULAR HUMAN 50 UNIT/0.5 ML ML SQ SCH ×3 (06:00→18:00)
--- NOTE | 2018-04-06 07:58 | RAD REPORT ---
EXAM DESCRIPTION: CT - Abdomen Pelvis Wo Contrast - 04/05/2018 10:15 pm CLINICAL HISTORY: Abdominal pain right flank pain for 3 days COMPARISON: 2016 TECHNIQUE: Computed axial tomography of the abdomen and pelvis was obtained. IV and oral contrast we re not requested. Preliminary report generated by [employer] and reviewed prior to dictation All CT scans are performed using dose optimization technique as appropriate and may include automated exposure control or mA/KV adjustment according to patient size. FINDINGS: The evaluation of solid organs, vessels and bowel is limited secondary to the lack of con trast administration. Extensive vascular calcifications are seen. The liver, spleen, pancreas, and adrenals appear grossly normal. The kidneys are mildly diminished in size. The bladder is distended The appendix is normal. There is no evidence of diverticulitis. A moderate amount of stool is present throughout the colon. Gallstones are seen. Mild gallbladder wall thickening is evident IMPRESSION: Cholelithiasis. Gallbladder wall thickening may indicate acute or chronic cholecystitis Bladder distention
--- NOTE | 2018-04-06 08:09 | RAD REPORT ---
EXAM DESCRIPTION: US - Abdomen Exam Limited - 04/05/2018 10:51 pm CLINICAL HISTORY: Abdominal pain. COMPARISON: January 2018 FINDINGS: The multiple gallstones are present with mild gallbladder wall thickening. . The biliary tree is normal caliber. IMPRESSION: Cholelithiasis. Mildly thickened gallbladder wall could indicate acute or chronic cholec ystitis
--- NOTE | 2018-04-06 08:11 | RAD REPORT ---
EXAM DESCRIPTION: Pot Single View04/05/2018 9:58 pm CLINICAL HISTORY: Chest pain COMPARISON: January 2018 FINDINGS: Minimal bilateral interstitial lung opacities are seen. The heart is mildly to moderately enlarged. Central venous catheter remains in place IMPRESSION: Minimal interstitial pulmonary edema
[2018-04-06] MEDS ORDERED: HYDRALAZINE HCL 20 MG/ML VIAL IV PRN (10:11)
[2018-04-06] MEDS: HEPARIN 5000 UNIT/ML 1 ML VIAL SQ SCH ×2 (10:27→21:18)
[2018-04-06] MEDS ORDERED: CYCLOBENZAPRINE 10 MG TAB PO PRN (10:36)
[2018-04-06] MEDS ORDERED: ALPRAZOLAM 1 MG TABLET PO PRN (10:36)
[2018-04-06] MEDS ORDERED: TRAMADOL HCL 50 MG TAB PO PRN (10:36)
[2018-04-06] MEDS ORDERED: hydrOXYzine HCl 25 MG TAB PO PRN (10:36)
[2018-04-06] MEDS ORDERED: HYDROCORTISONE 1 % CREAM 30GM TOP PRN (10:53)
[2018-04-06] MEDS ORDERED: INSULIN 70/30 100 UNITS/ML SQ PRN (11:00)
[2018-04-06] MEDS ORDERED: PIPER/TAZO/NS 2.25gm 2.25 GM/50 ML BAG IVPB SCH (12:00)
--- NOTE | 2018-04-06 13:39 | P.CNS ---
Date of Consult: 04/06/18 PC: I was asked to see this 52-year-old male regards to his abdominal pain. HPC: Patient experienced some severe abdominal pain yesterday. Is also associated with some dry heaving. He was unable to keep anything down. He says he is feeling much better at the moment, and is wondering when he will go home PMH: PSHx: Recent bilateral below-knee amputations. Has open wounds on those areas. SOC: SYS REVIEW: No cough, wheeze, shortness of breath at the moment. Reason was in the hospital for similar episode like this. Was seen by another surgeon and cardiology. It was felt that the patient had some biliary colic, but no evidence of acute cholecystitis. He was treated expectantly. O/E awake alert comfortable at the moment, moving about freely in the bed HEENT: Not jaundice Chest: Chest movement equal bilaterally ABD: Soft nontender LOCO: Wounds on both lower BKA stumps DATA: Ultrasound documents gallstone IMPRESSION: Biliary PLAN: This patient has considerable cardiac issues. The patient the current time does have a history of biliary colic. At the current time he is not in any acute crisis. He is on antibiotics, receiving IV fluids. If his pain is controlled, we may be able to discharge him and follow as outpatient. He does attend the wound center with Dr. Mclaughlin for care of his BKA s.
[2018-04-06 15:30] VITALS: O2SAT 97
[2018-04-06 18:39] VITALS: TEMP 98.1
[2018-04-06] MEDS ORDERED: SERTRALINE HCL 50 MG TAB PO SCH (21:00)
[2018-04-06] MEDS ORDERED: RANITIDINE 150 MG TABLET PO SCH (21:00)
[2018-04-06] MEDS ORDERED: LISINOPRIL 20 MG TAB PO SCH (21:00)
[2018-04-06 21:25] VITALS: BP 161/76
--- NOTE | 2018-04-07 03:53 | CON ---
Date of Consultation: 04/06/2018 Reason For Consultation: Elevated BUN and creatinine, hemodialysis management, hypertension. History Of Present Illness: This is a pleasant 52-year-old unfortunate gentleman with significant [facility] medical history of diabetes, coronary artery disease, status post PTCA, peripheral vascular diseas e, status post bilateral below-knee amputation, hypertension, and hyperlipidemia. 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 The patient denied any fever or any chills. Seen by Cardiology, not a candidate for surgery. Seen only Surgery. No intervention right now. The patient is scheduled for dialysis. So, await for his regular dialysis. Tolerating the dialysis very well. Past Medical History: 1.Diabetes complicated with neuropathy and nephropathy. 2.Hypertension. 3.Hyperlipidemia. 4.Peripheral vascular disease, status post percutaneous transluminal coronary angioplasty. 5.Bilateral below-knee amputation. Allergies: NO KNOWN DRUG ALLERGIES. Family History: Positive for diabetes and hypertension. Social History: Denies smoking, denies drinking, and denies drug abuse. Past Surgical History: Includes; 1.Percutaneous transluminal coronary angioplasty. 2.Bilateral below-knee amputation. 3.PermCath. Review of Systems: Head and Neck: No red eye. No ear pain. GI: Has abdominal pain. : No polyuria. No dysuria. No hematuria. CHIEF WARDEN: Not applicable. Respiratory: No shortness of breath. Cardiovascular: No chest pain. Endocrine: No polydipsia. Skin: No rash. Physical Examination: General: When I saw the patient, the patient lying in bed. Vital Signs: Blood pressure of 158/83, pulse of 84. Chest: Clear to auscultation. Heart: S1, S2. Systolic murmur. Abdomen: Soft, nontender. Extremities: Bilateral below-knee amputation. Laboratory Data: H and H 11.5/34.7. Sodium 137, potassium 3.2, bicarb 25, BUN 56, creatinine 4.4, a nd calcium 8.5. Home Medications: Include; 1.Metronidazole. 2.Tramadol. 3.Ranitidine. 4.Lisinopril. 5.Cipro. 6.Alprazolam. Assessment And Plan: 1.End-stage renal disease with alkalosis. I am going to dialyze the patient. We will monitor. 2.Hypokalemia. The patient is going to be dialyzed on high potassium bath. 3.Hypertension, controlled, optimal. Continue current medication. 4.Anemia. No need for erythropoietin stimulating agent. 5.Cholelithiasis. Not a candidate for surgery. Will follow up with the primary. 6.Diabetes, as by primary. HARRIET Voice ID: [id number] Report ID: [id number]
--- NOTE | 2018-04-07 06:18 | DS ---
Date of Discharge: 04/06/2018 Consultants: Dr. Givens, General Surgery; Dr. Pacheco with Nephrology. Procedures: None. Admitting Diagnoses: 1.[id number] cholelithiasis with cholecystitis without biliary obstruction. 2.Cholecystitis. 3.End-stage renal disease, on dialysis. 4.Right upper quadrant abdominal pain secondary to cholelithiasis. 5.Essential hypertension. 6.Status post below-knee amputation. 7.Elevated troponin level. Hospital Course: The patient is a 52-year-old male with multiple comorbid conditions including diabe chris, end-stage renal disease on hemodialysis, hypertension, bilateral BKA, coronary artery disease, c holelithiasis, severe peripheral vascular disease, comes in with recurrent abdominal pain in the righ t upper quadrant when the patient has history of cholelithiasis and has [id number] cholecystiti s. Imaging Studies: CT scan showed cholelithiasis, gallbladder wall thickening, may indicate acute or c hronic cholecystitis bladder distention. The patient was seen by Dr. Givens. The patient cheyenne boyle is not a good candidate for surgery given his multiple comorbid conditions and peripheral vascul ar disease and heart disease and has not been cleared for Cardiology in the past. The patient also h as healing wounds of the bilateral BKA. The patient does see Dr. Mclaughlin [facility] a nd has not been on antibiotics for those. The patient did have some uncontrolled blood pressure, whi ch improved with p.r.n. medications. His home dose was resumed. The patient did receive dialysis on the day of discharge as regularly scheduled. The patient was unable to tolerate his diet. He was r ecommended to have medical management for his acute cholecystitis. He was encouraged to continue fol lowing a low-fat bland diet and to complete course of antibiotics and antiemetics. The patient was t hen cleared for discharge and was sent home in a stable condition. Activity: Fall precautions. Diet: [place]. Followup: With PCP in 2 to 3 days. Follow up with surgeon, Dr. Givens per his recommendation. Fol low up with strip machine tender, Dr. Pacheco in 2 weeks. Return to ER for worsening condition. Keep all h emodialysis appointments. Medications: As per medication reconciliation list. Physical Examination: General: Awake, alert, oriented, no acute distress. CV: S1, S2. No murmurs. Respiratory: Moving air well bilaterally. Abdomen: Mild tenderness to palpation in the right upper quadrant. No guarding or rigidity. Extremities: No clubbing, cyanosis, edema. Musculoskeletal: Bilateral BKA. /DONNA Voice ID: [id number] Report ID: [id number]
--- NOTE | 2018-04-07 07:54 | EKG ---
Test Date: 2018-04-05 Test Time: 22:00:26 [place] [employer] Dried Salt: DUNIA MEASUREMENT RESULTS: Intervals: Rate: 84 OK: 140 QRSD: 112 QT: 408 QTc: 482 Cyril: P: 58 OK: 140 QRS: -28 T: 160 INTERPRETIVE STATEMENTS: Sinus rhythm with occasional premature ventricular complexes Possible Left atrial enlargement Left ventricular hypertrophy ST & T wave abnormality, consider lateral ischemia Prolonged QT Abnormal ECG Compared to ECG 02/26/2018 09:22:06 Left ventricular hypertrophy now present ST (T wave) deviation now present Prolonged QT interval now present T-wave abnormality no longer present Possible ischemia still present Electronically Signed On 04-07-18 07:49:15 CDT by Parminder Alvarez
== END 2018-04-06 21:47 | disposition home or self-care (01) ==
LOC: ER 21:12 → ERHOLD 04-06 00:23 → 2ND 04-06 01:39
PROVIDERS: ADMIT Internal Medicine; ATTEND Internal Medicine
DX: K80.12 Calculus of gallbladder with acute and chronic cholecystitis without obstruction (principal); I12.0 Hypertensive chronic kidney disease with stage 5 chronic kidney disease or end stage renal disease; E11.22 Type 2 diabetes mellitus with diabetic chronic kidney disease; N18.6 End stage renal disease; E87.6 Hypokalemia; D64.9 Anemia, unspecified; I25.10 Atherosclerotic heart disease of native coronary artery without angina pectoris; I73.9 Peripheral vascular disease, unspecified; Z89.512 Acquired absence of left leg below knee; Z89.511 Acquired absence of right leg below knee
CPT/HCPCS: 36415; 71045; 74176; 76705; 80048; 80053; 80076; 82962 ×2; 83690; 83735; 83880; 84484; 85025 ×2; 85610; 87086; 87088; 93005; 96365; 96375; 99285; G0257; G0378 ×2; J0360; J1644 ×2; J2405 ×3; J2543; J7030 ×2

== ENCOUNTER 2018-05-21 02:38 | Emergency (ER) | payer OTHER, BC ==
--- NOTE | 2018-05-21 03:12 | EDPHYS ---
Physician Documentation [facility] Name: Justus Prasad Age: 52 yrs Sex: Male : 1965 Arrival Date: 05/21/2018 Time: 02:42 Bed 7 Private MD: Gino Alvarado H ED Physician James Toure HPI: 05/21 03:07 This 52 yrs old Male presents to ER via Wheelchair with complaints of Hand morena Pain. Historical: - Allergies: 03:02 Clindamycin; ea - Home Meds: 03:02 Renvela 800 mg Oral tab 2 tabs 3 times per day [Active]; Plavix 75 mg Oral tab 1 tab ea once daily [Active]; Nitroglycerin Oral as needed [Active]; Lyrica 50 mg Oral 2 times per day [Active]; metoprolol tartrate 25 mg Oral tab 1 tab 2 times per day [Active]; lisinopril 5 mg Oral tab 1 tab on Tues, Thurs, Sat and Sun only [Active]; Insulin: Novolin 70/30 sliding scale Sub-Q before meals [Active]; aspirin 81 mg Oral TbEC 1 tab once daily [Active]; alprazolam 0.25 mg Oral tab as needed [Active]; - PMHx: 03:02 Myocardial infarction; Hypertension; gangrenous toes L 1,3,4; ESRD; DIALYSIS MWF; ea Diabetes - IDDM; CHF; cardiac stents; - PSHx: 03:02 bilateral BKA; ea - Immunization history:: Adult Immunizations up to date. - Social history:: Smoking status: Patient/guardian denies using tobacco. - Ebola Screening: : No symptoms or risks identified at this time. ROS: 03:08 Constitutional: Negative for fever, chills, and weight loss, Eyes: Negative for injury, morena pain, redness, and discharge, ENT: Negative for injury, pain, and discharge, Neck: Negative for injury, pain, and swelling, Cardiovascular: Negative for chest pain, palpitations, and edema, Respiratory: Negative for shortness of breath, cough, wheezing, and pleuritic chest pain, Abdomen/GI: Negative for abdominal pain, nausea, vomiting, diarrhea, and constipation, Back: Negative for injury and pain, : Negative for injury, bleeding, discharge, and swelling, Skin: Negative for injury, rash, and discoloration, Neuro: Negative for headache, weakness, numbness, tingling, and seizure, Psych: Negative for depression, anxiety, suicide ideation, homicidal ideation, and hallucinations, Allergy/Immunology: Negative for hives, rash, and allergies, Endocrine: Negative for neck swelling, polydipsia, polyuria, polyphagia, and marked weight changes, Hematologic/Lymphatic: Negative for swollen nodes, abnormal bleeding, and unusual bruising. 03:08 MS/extremity: Positive for decreased range of motion, pain, swelling, tenderness, of the left knee. Exam: 03:08 Constitutional: This is a well developed, well nourished patient who is awake, alert, morena and in no acute distress. Head/Face: Normocephalic, atraumatic. Eyes: Pupils equal round and reactive to light, extra-ocular motions intact. Lids and lashes normal. Conjunctiva and sclera are non-icteric and not injected. Cornea within normal limits. Periorbital areas with no swelling, redness, or edema. ENT: Nares patent. No nasal discharge, no septal abnormalities noted. Tympanic membranes are normal and external auditory canals are clear. Oropharynx with no redness, swelling, or masses, exudates, or evidence of obstruction, uvula midline. Mucous membranes moist. Neck: Trachea midline, no thyromegaly or masses palpated, and no cervical lymphadenopathy. Supple, full range of motion without nuchal rigidity, or vertebral point tenderness. No Meningismus. Chest/axilla: Normal chest wall appearance and motion. Nontender with no deformity. No lesions are appreciated. Cardiovascular: Regular rate and rhythm with a normal S1 and S2. No gallops, murmurs, or rubs. Normal PMI, no JVD. No pulse deficits. Respiratory: Lungs have equal breath sounds bilaterally, clear to auscultation and percussion. No rales, rhonchi or wheezes noted. No increased work of breathing, no retractions or nasal flaring. Abdomen/GI: Soft, non-tender, with normal bowel sounds. No distension or tympany. No guarding or rebound. No evidence of tenderness throughout. Back: No spinal tenderness. No costovertebral tenderness. Full range of motion. Male : Normal genitalia with no discharge or lesions. Skin: Warm, dry with normal turgor. Normal color with no rashes, no lesions, and no evidence of cellulitis. Neuro: Awake and alert, GCS 15, oriented to person, place, time, and situation. Cranial nerves II-XII grossly intact. Motor strength 5/5 in all extremities. Sensory grossly intact. Cerebellar exam normal. Normal gait. Psych: Awake, alert, with orientation to person, place and time. Behavior, mood, and affect are within normal limits. 03:08 Musculoskeletal/extremity: Extremities: grossly normal except: noted in the left knee: decreased ROM, erythema, pain. Vital Signs: 03:07 BP 165 / 106; Pulse 97; Resp 18; Temp 97.6; Pulse Ox 97% on R/A; Weight 54.43 kg; ea Height 5 ft. 4 in. (162.56 cm); Pain 9/10; 04:15 BP 163 / 100; Pulse 96; Resp 18; Pulse Ox 96% ; ea 03:07 Body Mass Index 20.60 (54.43 kg, 162.56 cm) ea MDM: 02:59 Patient medically screened. [facility] 07:07 Data reviewed: vital signs, nurses notes, radiologic studies. [facility] 05/21 03:07 Order name: Knee Left 3 View XRAY [facility] Administered Medications: 03:19 Drug: Silvadene Cream 1 % 1 application Route: Topical; Site: affected area; ea 03:19 Drug: [place] 10 mg-325 mg 1 tabs Route: PO; ea 04:00 Follow up: Response: No adverse reaction; Pain is decreased ea Disposition: 05/21/18 03:11 Discharged to Home. Impression: Contusion of left knee - small ulcer, mild cellulitis, Type 1 diabetes mellitus, End stage renal disease. - Condition is Stable. - Discharge Instructions: Abrasion, Cellulitis, Adult, Cellulitis, Adult, [id number], Dialysis, Abrasion, [id number], End-Stage Kidney Disease, Dialysis Diet, [id number], Hemodialysis, Hemodialysis, Care After. - Prescriptions for Tylenol- Codeine #3 300-30 mg Oral Tablet - take 2 tablets by ORAL route every 6 hours As needed; 26 tablet. Doxycycline Monohydrate 100 mg Oral Tablet - take 1 tablet by ORAL route every 12 hours for 10 days; 20 tablet. Silvadene 1 % Topical Cream - Apply to affected area 1 application by TOPICAL route 3 times per day; 50 gram. - Medication Reconciliation Form, Thank You Letter, Antibiotic Education, Prescription Opioid Use form. - Follow up: Gino Alvarado DO; When: 2 - 3 days; Reason: Recheck today's complaints, Continuance of care, Re-evaluation by your physician. Follow up: Francisco Pacheco MD; When: 2 - 3 days; Reason: Recheck today's complaints, Continuance of care, Re-evaluation by your physician. Follow up: Aj Vora MD; When: 2 - 3 days; Reason: Recheck today's complaints, Re-evaluation by your physician. - Problem is new. - Symptoms have improved. Signatures: Dispatcher [employer] EDJames Lloyd MD MD cha Antunez, Elena, RN RN ea Corrections: (The following items were deleted from the chart) 03:11 03:11 05/21/2018 03:11 Discharged to Home. Impression: Contusion of left knee; Type 1 morena diabetes mellitus; End stage renal disease. Condition is Stable. Forms are Medication Reconciliation Form, Thank You Letter, Antibiotic Education, Prescription Opioid Use. Follow up: Gino Alvarado; When: 2 - 3 days; Reason: Recheck today's complaints, Continuance of care, Re-evaluation by your physician. Problem is new. Symptoms have improved. [facility] 03:12 03:11 05/21/2018 03:11 Discharged to Home. Impression: Contusion of left knee - small morena ulcer, mild cellulitis; Type 1 diabetes mellitus; End stage renal disease. Condition is Stable. Forms are Medication Reconciliation Form, Thank You Letter, Antibiotic Education, Prescription Opioid Use. Follow up: Gino Alvarado; When: 2 - 3 days; Reason: Recheck today's complaints, Continuance of care, Re-evaluation by your physician. Problem is new. Symptoms have improved. [facility] 04:17 03:12 05/21/2018 03:11 Discharged to Home. Impression: Contusion of left knee - small ea ulcer, mild cellulitis; Type 1 diabetes mellitus; End stage renal disease. Condition is Stable. Forms are Medication Reconciliation Form, Thank You Letter, Antibiotic Education, Prescription Opioid Use. Follow up: Gino Alvarado; When: 2 - 3 days; Reason: Recheck today's complaints, Continuance of care, Re-evaluation by your physician. Follow up: Francisco Pacheco; When: 2 - 3 days; Reason: Recheck today's complaints, Continuance of care, Re-evaluation by your physician. Follow up: Aj Vora; When: 2 - 3 days; Reason: Recheck today's complaints, Re-evaluation by your physician. Problem is new. Symptoms have improved. morena
--- NOTE | 2018-05-21 03:12 | ER ---
Nurse's Notes [facility] Name: Justus Prasad Age: 52 yrs Sex: Male : 1965 Arrival Date: 05/21/2018 Time: 02:42 Bed 7 Private MD: Gino Alvarado H Diagnosis: Contusion of left knee-small ulcer, mild cellulitis;Type 1 diabetes mellitus;End stage renal disease Presentation: 05/21 02:56 Presenting complaint: Patient states: Pt reports he has been having left knee pain for ea the past week, states he banged his knee on his chair about an hour ago which made it feel worse. Transition of care: patient was not received from another setting of care. Onset of symptoms was May 21, 2018. Risk Assessment: Do you want to hurt yourself or someone else? Patient reports no desire to harm self or others. Initial Sepsis Screen: Does the patient meet any 2 criteria? Does the patient have a suspected source of infection? Yes: Skin breakdown/wound. Care prior to arrival: None. 02:56 Method Of Arrival: Wheelchair ea 02:56 Acuity: KUNAL 3 ea Triage Assessment: 03:03 General: Appears uncomfortable, Behavior is calm, cooperative, appropriate for age. ea Pain: Complains of pain in left knee Quality of pain is described as aching, Pain began 1 week ago. Neuro: Level of Consciousness is awake, alert, obeys commands, Oriented to person, place, time, situation. Cardiovascular: Patient's skin is warm and dry. Cardiovascular: Dialysis shunt: in the anterior aspect of right upper chest. Respiratory: Airway is patent Respiratory effort is even, unlabored, Respiratory pattern is regular, symmetrical. Derm:. Musculoskeletal: jean-claude BKA. Historical: - Allergies: 03:02 Clindamycin; ea - Home Meds: 03:02 Renvela 800 mg Oral tab 2 tabs 3 times per day [Active]; Plavix 75 mg Oral tab 1 tab ea once daily [Active]; Nitroglycerin Oral as needed [Active]; Lyrica 50 mg Oral 2 times per day [Active]; metoprolol tartrate 25 mg Oral tab 1 tab 2 times per day [Active]; lisinopril 5 mg Oral tab 1 tab on Tues, Thurs, Sat and Sun only [Active]; Insulin: Novolin 70/30 sliding scale Sub-Q before meals [Active]; aspirin 81 mg Oral TbEC 1 tab once daily [Active]; alprazolam 0.25 mg Oral tab as needed [Active]; - PMHx: 03:02 Myocardial infarction; Hypertension; gangrenous toes L 1,3,4; ESRD; DIALYSIS MWF; ea Diabetes - IDDM; CHF; cardiac stents; - PSHx: 03:02 bilateral BKA; ea - Immunization history:: Adult Immunizations up to date. - Social history:: Smoking status: Patient/guardian denies using tobacco. - Ebola Screening: : No symptoms or risks identified at this time. Screenin:03 Abuse screen: Denies threats or abuse. Nutritional screening: No deficits noted. ea Tuberculosis screening: No symptoms or risk factors identified. Fall Risk Gait- Impaired (20 pts.). Assessment: 04:08 Reassessment: Patient and/or family updated on plan of care and expected duration. Pain ea level reassessed. Patient is alert, oriented x 3, equal unlabored respirations, skin warm/dry/pink. Discharge instruction given to patient, verbalized the understanding of instructions. Vital Signs: 03:07 BP 165 / 106; Pulse 97; Resp 18; Temp 97.6; Pulse Ox 97% on R/A; Weight 54.43 kg; ea Height 5 ft. 4 in. (162.56 cm); Pain 9/10; 04:15 BP 163 / 100; Pulse 96; Resp 18; Pulse Ox 96% ; ea 03:07 Body Mass Index 20.60 (54.43 kg, 162.56 cm) ea ED Course: 02:42 Patient arrived in ED. es 02:42 Gino Alvarado DO is Private Physician. es 02:56 Mery Johns, PANDA is Primary Nurse. ea 02:59 Triage completed. ea 02:59 James Toure MD is Attending Physician. morena 03:00 Arm band placed on right wrist. Patient placed in an exam room, on a stretcher, on ea pulse oximetry. 03:08 Patient has correct armband on for positive identification. Bed in low position. Call ea light in reach. Side rails up X 1. 03:10 Gino Alvarado DO is Referral Physician. morena 03:12 Francisco Pacheco MD is Referral Physician. [facility] 03:12 Aj Vora MD is Referral Physician. morena 03:18 X-ray completed. Portable x-ray completed in exam room. Patient tolerated procedure kp1 well. 03:24 Knee Left 3 View XRAY In Process Unspecified. EDFL 04:09 No provider procedures requiring assistance completed. Patient did not have IV access ea during this emergency room visit. Administered Medications: 03:19 Drug: Silvadene Cream 1 % 1 application Route: Topical; Site: affected area; ea 03:19 Drug: [place] 10 mg-325 mg 1 tabs Route: PO; ea 04:00 Follow up: Response: No adverse reaction; Pain is decreased ea Outcome: 03:11 Discharge ordered by . morena 04:10 Discharged to home via wheelchair, with family. ea 04:10 Condition: stable 04:10 Instructed on discharge instructions, follow up and referral plans. medication usage, Demonstrated understanding of instructions, follow-up care, medications, Prescriptions given X 3. 04:17 Patient left the ED. ea Signatures: Dispatcher [employer] James Grace MD MD cha Salyer, Edna es Poole, Kathy kp1 Mery Johns, RN RN ea
[2018-05-21] MEDS ORDERED: SILVER SULFADIAZINE 1% 25 GM TOP ONE (03:20)
[2018-05-21] MEDS ORDERED: HYDROCODONE/APAP 10/325 TAB ONE (03:20)
[2018-05-21 04:32] VITALS: TEMP 97.6
[2018-05-21 04:33] VITALS: BP 163/100; O2SAT 96
--- NOTE | 2018-05-21 08:54 | RAD REPORT ---
EXAM DESCRIPTION: RAD - Knee Left 3 View - 05/21/2018 3:24 am CLINICAL HISTORY: PAIN COMPARISON: Knee Left 2 View dated 01/20/2018 FINDINGS: [id number] amputation is noted. Oblique lucency is seen in the distal fibular stump pr esumably related to a small fracture. Heavy vascular calcifications are seen with diffuse osteopenia. No knee joint effusion identified.
== END 2018-05-21 04:17 | disposition home or self-care (01) ==
LOC: ER 02:38
DX: S80.02XA Contusion of left knee, initial encounter (principal); W22.8XXA Striking against or struck by other objects, initial encounter; L97.829 Non-pressure chronic ulcer of other part of left lower leg with unspecified severity; L03.116 Cellulitis of left lower limb; E10.22 Type 1 diabetes mellitus with diabetic chronic kidney disease; I13.2 Hypertensive heart and chronic kidney disease with heart failure and with stage 5 chronic kidney disease, or end stage renal disease; I50.9 Heart failure, unspecified; N18.6 End stage renal disease; Z99.2 Dependence on renal dialysis; Z89.512 Acquired absence of left leg below knee; I25.2 Old myocardial infarction; Z79.4 Long term (current) use of insulin; Z79.82 Long term (current) use of aspirin; Z79.899 Other long term (current) drug therapy; Z95.5 Presence of coronary angioplasty implant and graft
CPT/HCPCS: 99284